=== PATIENT | male | born 1960 | race Caucasian/White ===

== ENCOUNTER → 2017-08-27 08:49 | Outpatient (CLI) | payer MEDICARE, SELFPAY ==
[2017-08-27 10:50] LABS: ALB/GLOB Ratio 0.8 RATIO (0.9-2.4); AST(SGOT) 18 U/L (15-37); Alanine Aminotransfer ALT/SGPT 27 U/L (16-61); Albumin, Serum 3.6 g/dL (3.2-5.0); Alkaline Phosphatase 124 U/L (45-117); Anion Gap 7 (5-15); BUN 17 mg/dL (7-18); BUN/Creat Ratio 14.5 RATIO (10-20); Calcium,Total 8.8 mg/dL (8.5-10.1); Chloride 100 mmol/L (98-107); Creatinine, Serum 1.17 mg/dL (0.70-1.30); EST Glomerular Filtration Rate 68 mL/min (>60); Est Glom Filt Rate - Afr Amer 82 mL/min (>60); Globulin 4.3 g/dL (2.2-4.2); Glucose 149 mg/dL (74-106); Hemoglobin A1c 8.4 % (4.2-6.3); PSA,Total - Annual Screen 0.34 ng/mL (0.00-4.00); Potassium 4.9 mmol/L (3.5-5.1); Protein, Total 7.9 g/dL (6.4-8.2); Sodium Level 137 mmol/L (136-145)
== END ==
PROVIDERS: Visit Provider Nurse Practitioner
DX: E10.9 Type 1 diabetes mellitus without complications (principal); I10 Essential (primary) hypertension; H81.09 Meniere's disease, unspecified ear; Z12.5 Encounter for screening for malignant neoplasm of prostate
CPT/HCPCS: 36415; 80053; 82043; 82570; 83036; 84153; G0103

== ENCOUNTER → 2017-08-29 10:11 | Outpatient (CLI) | payer MEDICARE, SELFPAY ==
[2017-08-29 11:42] LABS: Microalbumin:Creatinine Ratio 678.1 mg/g CRE (<30 mg/g CRE)
== END ==
PROVIDERS: Visit Provider Nurse Practitioner
DX: E10.9 Type 1 diabetes mellitus without complications (principal); I10 Essential (primary) hypertension
CPT/HCPCS: 82043; 82570

== ENCOUNTER 2018-01-30 14:14 | Emergency (ER) | payer MEDICARE, SELFPAY ==
[2018-01-30 14:16] VITALS: BP 187/77; PULSE 79; RESP 18; TEMP 36.3; O2SAT 100; BMI 28.4
--- NOTE | 2018-01-30 14:31 | CT_ITS ---
STUDY: CT ABDOMEN AND PELVIS WITH CONTRAST REASON FOR EXAM: Male, 57 years old. Left lower quadrant pain. RADIATION DOSAGE (If Supplied By Facility): CTDIvol = ( 14.16 ) mGy, DLP = ( 781.88 ) mGycm TECHNIQUE: Transaxial images were obtained from the dome of the diaphragm to the symphysis pubis without oral contrast. 100 ml of Isovue 300 contrast was administered. Sagittal and coronal images were reconstructed. Individualized dose optimization techniques were used for this CT. COMPARISON: May 26, 2014. FINDINGS: The visualized lung bases are unremarkable. There are coronary artery calcifications present. The visualized liver is within normal limits. Normal gallbladder and extrahepatic biliary system. Normal spleen. There is diffuse stable atrophy of the pancreas. No pancreatic ductal dilatation is seen. Normal bilateral adrenal glands. Normal right kidney. There is a left renal cyst. There is an additional too small to characterize low-attenuation focus within the left kidney consistent with an underlying cyst. Normal visualized stomach. Normal small intestine. Normal colon. The appendix is visualized and appears normal. There is diffuse atherosclerotic calcification of the abdominal aorta, without a demonstrated aneurysm. Normal inferior vena cava. Normal retroperitoneum. Normal urinary bladder. Stable abdominal wall. There is a small fat-containing umbilical hernia. There are diffuse degenerative changes of the visualized lumbar spine. CT/Abdomen/Pelvis W IV Cont ONLY IMPRESSION: No acute intra-abdominal process. Atherosclerosis. Left renal cyst. Degenerative changes. Electronically Signed: Vanessa Newsome MD at 15:54 EST Tel , Service support ,
[2018-01-30 14:49] LABS: Absolute Lymphocyte Count 1.65 X10^3/ul (0.83-4.51); Absolute Neutrophil Count 6.4 X10^3/uL (2.0-7.7); Basophil# 0.02 X10^3/uL; Basophil% 0.2 % (0-1); Eosinophil# 0.12 X10^3/uL; Eosinophils% 1.4 % (0-5); Hematocrit 38.3 % (40-54); Hemoglobin 12.8 g/dl (13.0-16.5); Lymphocyte # 1.65 X10^3/ul (4.0); Mean Corp Hgb Conc 33.4 g/gl (32-36); Mean Corpuscular Hgb 30.3 pg (27.0-32.0); Mean Corpuscular Volume 90.8 fL (80-94); Mean Platelet Vol. 8.8 fl (6.2-12.0); Monocyte# 0.52 X10^3/uL; Neutrophil # 6.38 X10^3/uL (2.7-7.7); Neutrophil % 73.3 % (47-70); POSITIVE COUNT NO; POSITIVE DIFFERENTIAL NO; POSITIVE MORPHOLOGY NO; Platelet Count 346 K/mm3 (150-450); RBC Distribution Width CV 13.3 % (11.6-14.6); RBC Distribution Width SD 43.6 fl (35.1-43.9); Red Blood Count 4.22 M/mm3 (4.6-6.2); White Blood Count 8.7 K/mm3 (4.4-11.0)
[2018-01-30 14:56] LABS: Bacteria 0 SEEN /hpf (None Seen); Mucous, Urine 0 SEEN /hpf (<or=2+); Squamous Epithelial Cells - UA 0 SEEN /hpf (0-5); White Blood Cells 0 SEEN /hpf (0-5)
[2018-01-30 15:00] LABS: Color, Urine Yellow (Yellow); Glucose, Dipstick 1000 mg/dl (Normal); Ketone-Dipstick Negative (Negative); Leukocyte Esterase-Dipstick Negative /ul (Negative); Nitrite-Dipstick Negative (Negative); Occult Blood-Urine 10 /ul (Negative); Protein-Dipstick 30 mg/dl (Negative); Specific Gravity, Urine 1.005 (1.002-1.030); Urine Bilirubin Dipstick Negative (Negative); Urine Clarity Clear (Clear); Urine Urobilinogen Normal (Normal); Urine pH 6.5 (5.0 - 8.0)
[2018-01-30 15:07] LABS: Red Blood Cells-Urine 0-5 SEEN /hpf (0-5)
[2018-01-30 15:10] LABS: ALB/GLOB Ratio 0.8 RATIO (0.9-2.4); AST(SGOT) 21 U/L (15-37); Alanine Aminotransfer ALT/SGPT 37 U/L (16-61); Albumin, Serum 3.1 g/dL (3.2-5.0); Alkaline Phosphatase 161 U/L (45-117); Anion Gap 5 (5-15); BUN 30 mg/dL (7-18); BUN/Creat Ratio 19.4 RATIO (10-20); Calcium,Total 8.3 mg/dL (8.5-10.1); Chloride 99 mmol/L (98-107); Creatinine, Serum 1.55 mg/dL (0.70-1.30); EST Glomerular Filtration Rate 49 mL/min (>60); Est Glom Filt Rate - Afr Amer 59 mL/min (>60); Estimated Creatinine Clearance 47.98 ml/min; Glucose 458 mg/dL (74-106); Lipase 69 U/L (73-393); Potassium 5.3 mmol/L (3.5-5.1); Protein, Total 7.1 g/dL (6.4-8.2); Sodium Level 133 mmol/L (136-145)
--- NOTE | 2018-01-30 15:17 | ED.RN ---
Critical glucose of 458 received, Dr Berry notified. No new orders at this time.
--- NOTE | 2018-01-30 15:44 | ED.VISSUMM ---
- ER Visit Summary Date of Service: 01/30/18 Chief Complaint: Abdominal pain History of Present Illness: The patient is a 57 M who states that intermittently since the summer he has had episodes where he feels twisting of his abdomen typically in the left lower side of his abdomen. He also notes tenderness in his epigastrium. And he has diarrhea. This particular episode began on Saturday today he has had 5 episodes of diarrhea. His last formed stool was yesterday. He denies any mucus or blood in the stool. He has been hunting. No history of colitis. He is never had colonoscopy.. He denies any recent antibiotics. He denies any bad food. Physical Examination: Afebrile vital signs are stable Gen: Well-nourished well-developed Head: Normocephalic atraumatic Eyes: Perrl EOMI ENT: TMs clear no rhinorrhea moist mucous membranes Neck: Supple no lymphadenopathy no JVD nontender CVS: Regular rate rhythm no murmurs normal S1-S2 Respiratory: No distress clear to auscultation bilaterally chest nontender Abdomen: Soft mildly tender without distention r nondistended normal bowel sounds no masses Back: Nontender Extremity: Nontender no edema Skin: Normal color no rash Neuro: alert orientated ?3 CN II-XII intact normal strength sensation reflexes gait cerebellar Psych: Normal affect normal mood Test Results: Labs showed blood sugars in the 400s. CT of the pelvis was negative for acute pathology. Emergency Department Course and Treatment: Received IV fluids. His blood sugar significantly elevated which she states he knew. He states he does have the ability to do due to tight glycemic control and will check his blood sugar every couple hours to get that down and and he is advised that his medicines will raise his blood sugars. We discharged home on prednisone and Bentyl. He is to follow-up with gastroenterology. Referral given. Impression: IBS This note was generated with [employer] dictation software. It may contain incorrect words, spelling, and punctuation that were not noted in review of the chart prior to signing ED Disposition - Plan for ED Patient: Disposition: Home or Assisted Living Chief Complaint: Abd Pain Instructions: ED IBS Prescriptions: Dicyclomine HCl [Bentyl] 20 mg PO TIDAC #40 capsule Prednisone [Deltasone] 40 mg PO DAILY #10 tablet Referrals: Aaron Cook MD [NON-STAFF] - (call to arrange follow up)
[2018-01-30 15:57] VITALS: BP 139/79; PULSE 84; RESP 16; O2SAT 97
[2018-01-30] MEDS: 0.9% Normal Saline 1,000 ML 999 ML IV (15:57)
[2018-01-30 16:40] VITALS: BP 108/77; PULSE 62; RESP 15; O2SAT 97
--- OUTSIDE RECORDS SUMMARY | 2018-03-27 20:23 | XMS RPT_ITS ---
:1960 Author Organization OHIP Care Team Providers Name Role Phone Margaret Wood LYMPHEDEMA THERAPIST-C Attending Unavailable Margaret Wood LYMPHEDEMA THERAPIST-C Referring Unavailable Primay Care Physicia, No Primary Care Unavailable Margaret Wood LYMPHEDEMA THERAPIST-C Attending Unavailable Zurdo Carey Referring Unavailable Primay Care Physicia, No Primary Care Unavailable Margaret Wood LYMPHEDEMA THERAPIST-C Attending Unavailable Margaret Wood LYMPHEDEMA THERAPIST-C Referring Unavailable Primay Care Physicia, No Primary Care Unavailable Margaret Wood LYMPHEDEMA THERAPIST-C Attending Unavailable Primay Care Physicia, No Referring Unavailable Primay Care Physicia, No Primary Care Unavailable Brandon Berry Attending Unavailable PROBLEMS PROBLEMS DATE TYPE CONDITION / CODE ATTENDING STATUS SOURCE 12/05/2017 Unknown E10.9 - Type 1 Margaret Wood diabetes mellitus LYMPHEDEMA THERAPIST-C [facility] complications / Repository E10.9(ICD-10) 12/05/2017 Unknown E11.9 - Type 2 Margaret Wood Active Dileep diabetes mellitus LYMPHEDEMA THERAPIST-C [facility] complications / Repository E11.9(ICD-10) 08/29/2017 Unknown I10 - Essential Margaret Wood Active [place] (primary) LYMPHEDEMA THERAPIST-C [facility] hypertension / Hospital I10(ICD-10) Repository PROCEDURES PROCEDURES No Procedure Records FoundRESULTS RESULTS EMERGENCY DEPARTMENT Observed: 01/30/2018 Status: F Source: DILEEP SUMMARY 5:45 PM [facility] HOSPITAL REPOSITORY [facility] Medical Records Department [address] [place] [address] Emergency Department Summary 01/30/18 1544 MR#: [id number] Acct: [id number] Name: BERE MENDOZA Rep #: [id number] : 1960 57 From: Brandon Berry DO PCP: Care Physician, No Primary Status: DEP ER - ER Visit Summary Date of Service: 01/30/18 Chief Complaint: Abdominal pain History of Present Illness: The patient is a 57 M who states that intermittently since the summer he has had episodes where he feels twisting of his abdomen typically in the left lower side of his abdomen. He also notes tenderness in his epigastrium. And he has diarrhea. This particular episode began on Saturday today he has had 5 episodes of diarrhea. His last formed stool was yesterday. He denies any mucus or blood in the stool. He has been hunting. No history of colitis. He is never had colonoscopy.. He denies any recent antibiotics. He denies any bad food. Physical Examination: Afebrile vital signs are stable Gen: Well-nourished well-developed Head: Normocephalic atraumatic Eyes: Perrl EOMI ENT: TMs clear no rhinorrhea moist mucous membranes Neck: Supple no lymphadenopathy no JVD nontender CVS: Regular rate rhythm no murmurs normal S1-S2 Respiratory: No distress clear to auscultation bilaterally chest nontender Abdomen: Soft mildly tender without distention r nondistended normal bowel sounds no masses Back: Nontender Extremity: Nontender no edema Skin: Normal color no rash Neuro: alert orientated 3 CN II-XII intact normal strength sensation reflexes gait cerebellar Psych: Normal affect normal mood Test Results: Labs showed blood sugars in the 400s. CT of the pelvis was negative for acute pathology. Emergency Department Course and Treatment: Received IV fluids. His blood sugar significantly elevated which she states he knew. He states he does have the ability to do due to tight glycemic control and will check his blood sugar every couple hours to get that down and and he is advised that his medicines will raise his blood sugars. We discharged home on prednisone and Bentyl. He is to follow-up with gastroenterology. Referral given. Impression: IBS This note was generated with QuarterSpot dictation software. It may contain incorrect words, spelling, and punctuation that were not noted in review of the chart prior to signing ED Disposition - Plan for ED Patient: Disposition: Home or Assisted Living Chief Complaint: Abd Pain Instructions: ED IBS Prescriptions: Dicyclomine HCl [Bentyl] 20 mg PO TIDAC #40 capsule Prednisone [Deltasone] 40 mg PO DAILY #10 tablet Referrals: Aaron Cook MD [NON-STAFF] - (call to arrange follow up) What to do if you have Problems For any increased pain, shortness of breath, bleeding, nausea or vomiting, chest pain, or any unexpected problems, contact your Primary Care Provider. Call [facility] ([phone]) or report to the closest Emergency Room. Call 911 if necessary. 01/30/18 2328 <Electronically signed by Brandon Berry DO> Date Brandon Berry DO Cosigner Signature (If Indicated): Date CC: No Primary Care Physician URINALYSIS, COMPLETE Collected: 01/30/2018 Status: F Source: DILEEP 2:50 PM [facility] REPOSITORY Order Comment: How was Urine Obtained? CLEAN CATCH TYPE CODE TESTS RESULT OUT OF RANGE REFERENCE UNITS LAB L400.3000 Yellow COLOR Normal Yellow LAB L400.3050 Clear Normal CLARITY Clear LAB L400.3200 Normal mg/dl High GLUCOSE, UR 1000 LAB L400.3300 Negative mg/dL Normal BILIRUBIN URINE Negative LAB L400.3400 Negative mg/dl Normal KETONE UR Negative LAB L400.3465 1.002-1.030 Normal SP.GR. DIPSTX 1.005 LAB L400.3550 5.0 - 8.0 pH UR Normal 6.5 LAB L400.3600 Negative mg/dl High PROT 30 DIPSTX LAB L400.3700 Normal mg/dl Normal UROBILI Normal LAB L400.3750 Negative Normal NITRITE UR Negative LAB L400.3780 Negative /ul High 10 OCCULT BLOOD-UR LAB L400.3800 Negative /ul LEUK Normal ESTERASE Negative LAB L400.4050 0-5 /hpf WBC 0 Normal SEEN LAB L400.4100 0-5 /hpf Normal RBC-UA 0-5 SEEN LAB L400.4150 0-5 /hpf SQUAM 0 Normal EPI SEEN LAB L400.4300 None Seen /hpf 0 Normal BACTERIA SEEN LAB L400.4350 <or=2+ /hpf 0 Normal MUCUS, URINE SEEN Performed By: #### L400.0001 #### [facility] [address] [place], [address] CBC W/DIFF, AUTOMATED Collected: 01/30/2018 Status: F Source: [place] 2:40 PM [facility] REPOSITORY TYPE CODE TESTS RESULT OUT OF RANGE REFERENCE UNITS LAB L100.1000 4.4-11.0 K/mm3 Normal WBC 8.7 LAB L100.1200 4.6-6.2 M/mm3 Low RBC 4.22 LAB L100.1300 13.0-16.5 g/dl Low HGB 12.8 LAB L100.1400 40-54 % Low HCT 38.3 LAB L100.1500 80-94 fL Normal MCV 90.8 LAB L100.1600 27.0-32.0 pg Normal MCH 30.3 LAB L100.1700 32-36 g/gl Normal MCHC 33.4 LAB L100.1810 11.6-14.6 % Normal RDW CV 13.3 LAB L100.1820 35.1-43.9 fl Normal RDW SD 43.6 LAB L100.1900 150-450 K/mm3 Normal PLT 346 LAB L100.2000 6.2-12.0 fl Normal MPV 8.8 LAB L100.2100 47-70 % High NEUT% 73.3 LAB L100.2200 19-41 % Normal LY% 19.0 LAB L100.2300 0-10 % Normal MONO% 6.0 LAB L100.2400 0-5 % Normal EO% 1.4 LAB L100.2500 0-1 % Normal BASO% 0.2 LAB L100.2550 0.0-0.9 % Normal IM GRAN % 0.100 Result Comment: IG% - Immature Granulocytes (promyelocytes, myelocytes and metamyelocytes) > 1% indicates that a LEFT SHIFT is Present. LAB L100.2620 2.0-7.7 X10 3/uL Normal Absolute Neut 6.4 LAB L100.2720 0.83-4.51 X10 3/ul Normal Absolute Lymph 1.65 Performed By: #### L100.0100 #### [facility] [address] [place], [address] COMPREHENSIVE METABOLIC Collected: 01/30/2018 Status: F Source: [facility] 2:40 PM [facility] REPOSITORY TYPE CODE TESTS RESULT OUT OF RANGE REFERENCE UNITS LAB L501.0100 74-106 mg/dL High alert GLU 458 Result Comment: Critical Result(s) Called at: 15:11:32 01/30/2018 by: Marybel Bull to MMartin Glucose result greater than or equal to 200 mg/dL suggests DIABETES MELLITUS per A.D.A. criteria. Please note revised GLUCOSE reference range effective 2017. LAB L501.1000 7-18 mg/dL High BUN 30 LAB L501.1100 0.70-1.30 mg/dL High CREAT,SERUM 1.55 Result Comment: The validity of the calculated GFR AND GFRAA in patients over 70 years has not been determined. Clinical correlation is essential. LAB L501.1110 >60 mL/min Low EST GFR 49 Result Comment: Non- GFR Calc LAB L501.1115 >60 mL/min Low EST GFR - AA 59 Result Comment: GFR Calc LAB L501.1255 ml/min Normal Estimated CRCL 47.98 LAB L501.1300 10-20 RATIO Normal BUN/CRE 19.4 LAB L501.1500 6.4-8. g/dL Normal 2 T PROT 7.1 LAB L501.1800 3.2-5. g/dL Low 0 ALB 3.1 LAB L501.1950 2.2-4. g/dL Normal 2 GLOB 4.0 LAB L501.2000 0.9-2. RATIO Low 4 A/G 0.8 LAB L501.2200 8.5-10 mg/dL Low .1 CA 8.3 LAB L501.4100 15-37 U/L Normal AST 21 LAB L501.4305 45-117 U/L High ALK P 161 LAB L501.4405 16-61 U/L Normal ALT 37 LAB L501.4600 0.20-1 mg/dL Normal .00 T BILI 0.30 LAB L501.5300 136-14 mmol/L Low 5 NA 133 LAB L501.5600 3.5-5. mmol/L High 1 K 5.3 LAB L501.5900 98-107 mmol/L Normal CL 99 LAB L501.6100 21.0-3 mmol/L Normal 2.0 CO2 29.0 LAB L501.6200 5-15 Normal GAP 5 Performed By: #### L500.4050, L501.2450 #### [facility] [address] [place], [address] LIPASE Collected: 01/30/2018 Status: F Source: [place] 2:40 PM [facility] REPOSITORY TYPE CODE TESTS RESULT OUT OF REFERENCE UNITS RANGE LAB L501.2450 73-393 U/L Low LIPASE 69 Performed By: #### L500.4050, L501.2450 #### [facility] [address] [place], [address] ABDOMEN/PELVIS W IV CONT Observed: 01/30/2018 Status: F Source: [place] ONLY 2:32 PM [facility] REPOSITORY [facility] Imaging Services [address] [place] [id number] Abdomen/Pelvis W IV Cont ONLY MR#: [id number] Acct: [id number] Name: BERE MENDOZA Rep #: [id number] : 1960 M 57 From: Vanessa Newsome MD PCP: Care Physician, No Primary Status: REG ER Study: Abdomen/Pelvis W IV Cont ONLY Date of Exam: 01/30/18 Exam# [id number] Ordering Dr: Brandon Berry DO STUDY: CT ABDOMEN AND PELVIS WITH CONTRAST REASON FOR EXAM: Male, 57 years old. Left lower quadrant pain. RADIATION DOSAGE (If Supplied By Facility): CTDIvol = ( 14.16 ) mGy, DLP = ( 781.88 ) mGycm TECHNIQUE: Transaxial images were obtained from the dome of the diaphragm to the symphysis pubis without oral contrast. 100 ml of Isovue 300 contrast was administered. Sagittal and coronal images were reconstructed. Individualized dose optimization techniques were used for this CT. COMPARISON: May 26, 2014. FINDINGS: The visualized lung bases are unremarkable. There are coronary artery calcifications present. The visualized liver is within normal limits. Normal gallbladder and extrahepatic biliary system. Normal spleen. There is diffuse stable atrophy of the pancreas. No pancreatic ductal dilatation is seen. Normal bilateral adrenal glands. Normal right kidney. There is a left renal cyst. There is an additional too small to characterize low-attenuation focus within the left kidney consistent with an underlying cyst. Normal visualized stomach. Normal small intestine. Normal colon. The appendix is visualized and appears normal. There is diffuse atherosclerotic calcification of the abdominal aorta, without a demonstrated aneurysm. Normal inferior vena cava. Normal retroperitoneum. Normal urinary bladder. Stable abdominal wall. There is a small fat-containing umbilical hernia. There are diffuse degenerative changes of the visualized lumbar spine. CT/Abdomen/Pelvis W IV Cont ONLY IMPRESSION: No acute intra-abdominal process. Atherosclerosis. Left renal cyst. Degenerative changes. Electronically Signed: Vanessa Newsome MD at 15:54 EST Tel , Service support , CC: No Primary Care Physician; Brandon eBrry DO Sugar Boiler: Signed ENDOCRINOLOGY VISIT Observed: 12/05/2017 Status: F Source: DILEEP REPORT 11:28 AM [facility] REPOSITORY [facility] [address] [place] [address] OFFICE VISIT Date of Service: 12/05/17 MR#: [id number] Acct: [id number] Name: BERE MENDOZA Rep #: [id number] : 1960 Provider: Margaret Wood NP Age/Sex: 56/M Location: [facility] [place] Status: Signed HPI History of present illness History of present illness Bere Mendoza is a 56 yr old male who presents today for follow up of diabetes type 1. Diagnosed at age 12. Over the last few years he has had issues with meniere's disease left ear and has had surgeries to relieve his dizziness. Today he reports much of his hearing is gone from his left ear but he is feeling so much better regarding his quality of life. Also has hx of dermatitis , hyperlipidemia, and hypothyroidism. Currently taking lantus 33 units daily and meal insulin humalog 12-16 units each meal. Did not bring his meter today. Denies any issues with injections or site of injections. Did have steroid due to scratch of eye that was inflamed. Created elevation in BG readings which was expected. Since our last visit he denies excessive thirst or increased frequency of urination, chest pain or dyspnea, numbness,tingling, or pain in extremities, new or unusual visual symptoms. Has had occ low blood sugars. Follows a diabetic diet. Is compliant with medication and is tolerating without side effects. Diet 3 meals occ snacks Can carb count SMBG 4 BG Average BG 180 range. Exam Const General: comfortable, well developed Nutritional Appearance: well nourished, overweight [facility]: normal to inspection, normocephalic Ears: hearing grossly normal bilaterally Mouth: oral mucosae normal, moist mucous membranes Teeth and gingiva: edentulous Eyes General: appearance normal, both eyes and all related structures Eyelids: eyelids normal Sclera: sclerae normal Pupils: PERRL Neck Neck: normal visual inspection, full ROM Neck mass: No Resp Effort AND Inspection: normal respiratory effort, able to speak in complete sentences, symmetric chest movement Auscultation: Bilateral: Clear to Auscultation Cardio Rate: regular rate Rhythm: regular rhythm Heart Sounds: S1 normal, S2 normal GI Inspection: normal to inspection Auscultation: normal bowel sounds Palpation: soft, no guarding Skin General: no rashes or lesions noted Wounds: no wounds Diabetic Foot Pulses: L dorsalis pedis pulse: normal, R dorsalis pedis pulse: normal Monofilament test: Left foot: abnormal, Right foot: abnormal Neuro General: oriented x3 Cognition: normal cognition Speech: speech normal Gait: normal gait Extrem General: normal to inspection, no pedal edema Psych Mental Status: mental status grossly normal Mood: congruent mood Affect: normal affect Speech and Movement: speech and movement normal Attitude: cooperative Thought Process: normal Thought Content: normal Judgment: judgment good Type: type 1, insulin-requiring Glucose control symptoms: Reports high post-meal glucose Weight and fatigue symptoms: Reports weight loss; denies snoring Cardiopulmonary symptoms: Reports lightheadedness; denies chest pain at rest, dyspnea on exertion or myalgias GI symptoms: Denies constipation, diarrhea, nausea/dyspepsia or vomiting Skin and extremity symptoms: Denies erectile dysfunction Other symptoms: Reports change in vision; denies blurry vision Pertinent visit history: Denies recent visit to ER, recent hospital admission or recent glucagon injection Self monitoring: Yes Percentage of fasting blood glucose within goal: <25% of the time Dietary compliance: Diabetes: good Diabetes education in past year: Yes Glucose testing: demonstrates correct use of meter, understands testing schedule day education - understands ketone testing: Yes Physical activity: regular Intake Vital Signs12/05/17 Height 5 ft 7 in 12/05/17 Weight: 180 lb 2 oz 12/05/17 Body Mass Index (BMI) 28.2 12/05/17 Blood Pressure 138/70 H 12/05/17 Blood Pressure Location Rt popliteal 12/05/17 Blood Pressure Position Sitting Intake Visit Reasons: Diabetes follow-up Systems Integration Advisor Required: No Accompanied by: Self Allergies latex Allergy (Unknown, Verified 12/05/17 08:28) Unknown adhesive Allergy (Verified 12/05/17 08:28) Rash Medications levothyroxine 137 mcg capsule 137 mcg PO QDAY #90 cap 06/13/17 [Rx Confirmed 12/05/17] metoprolol tartrate 100 mg tablet 100 mg PO ONCE #90 tab 06/13/17 [Rx Confirmed 12/05/17] insulin glargine (U- 100) 100 unit/mL subcutaneous solution 33 unit SC QDAY #30 ml 06/27/17 [Rx Confirmed 12/05/17] aspirin 81 mg chewable tablet 81 mg PO QDAY 08/29/17 [History Confirmed 12/05/17] insulin lispro (U- 100) 100 unit/mL subcutaneous pen See Rx Instructions SC TID ml 08/29/17 [History Confirmed 12/05/17] promethazine 25 mg rectal suppository 25 mg RC Q6H PRN 08/29/17 [History Confirmed 12/05/17] losartan 100 mg tablet 100 mg PO QDAY #90 tab 12/03/17 [Rx Confirmed 12/05/17] Nurse's Note: blood sugars : low : 134 high : 500+ PFSH Medical History High calcium levels (Acute) High cholesterol (Acute) Type 1 diabetes mellitus (Acute) HTN (hypertension) (Chronic) Social History Smoking Status: Former smoker second hand exposure: No alcohol intake: never substance use type: does not use ROS Const Constitutional: No anorexia, body ache, chills, fatigue, fever(s), frequent falls, decreased energy, malaise, night sweats, weakness, weight change, sleep problems, abnormal sleep pattern, change in appetite, other, headache(s), snoring or excessive sweating Eyes Eyes: Positive for change in vision, eye pain and other (laceration to R eye- contact placed x 2 weeks); no blurry vision, double vision, discharge, dry eyes, bulging eyes, floaters, visual disturbances, light sensitivity, spots in vision or tunnel vision ENT ENT: Positive for nasal congestion and nasal discharge; no abnormal hearing, ear pain, ear discharge, ear pressure, hearing loss, tinnitus, dizziness/vertigo, balance problems, nosebleed/epistaxis, nasal obstruction, nose pain, sinus pressure, sinus pain, post nasal drip, headache(s), facial pain, dental pain, dry mouth, bad breath, hoarseness, lip swelling, mouth lesions, mouth pain, sore throat, tongue swelling, throat swelling, other, difficulty swallowing or neck pain Resp Respiratory: No cough, change in phlegm color, chest congestion, excessive phlegm production, hemoptysis, pain on inspiration, shortness of breath, pain with cough, snoring, stridor, wheezing or other Cardio Cardiology: Positive for lightheadedness; no chest pain at rest, chest pain with exertion, leg pain with exertion, excessive sweating, shortness of breath, dyspnea on exertion, generalized swelling, irregular heart rhythm, orthopnea, radiating jaw, neck or arm pain, fast heart rate, slow heart rate, palpitations or other Gastro GI: No abdominal pain, belching, bloating, change in bowel habits, change in stool character, coffee ground emesis, constipation, cramping, diarrhea, heartburn, difficulty swallowing, feeling full early, excessive flatus, incontinent of stools, Vomiting blood/hematemesis, blood in stool, loose stools, Black,tarry stools, nausea/dyspepsia, pain with swallowing, vomiting or other Genitourinary Male: Positive for urinary frequency and urinary hesitancy; no difficulty urinating, burning urination, painful urination, urinary incontinence, urinary urgency, urinary retention, blood in urine, Frequent nighttime urination/ nocturia, post void dribbling, suprapubic fullness, side pain, sexual problems, genital lesions, genital itching, erectile dysfunction, penile discharge, difficulty with ejaculations, blood in semen, scrotal swelling, testicle lump, testicle pain or other Musc Musculoskeletal: No abnormal walking, joint pain, back pain, deformity, joint swelling, limited range of motion, loss of height, muscle cramps, muscle weakness, decreased muscle mass, body aches, neck pain, numbness, radiating pain into limb, stiffness, tingling or other Skin Skin: No acne, hair loss, change in hair, nail changes, boil, change in skin color, dry skin, redness, excessive hair growth, yellowing of the skin, lesions, itching, rash, skin pain, skin ulcer, sores, skin swelling, wounds or other Breast Breast: No other Neuro Neurology: No frequent falls, weakness, visual disturbances, abnormal hearing, headache(s), abnormal walking, numbness or tingling Psych Psychiatric: No abnormal sleep pattern, No change in appetite Endo Endocrine: No fatigue, other or excessive sweating Aller/Imm Allergy/Immunologic: No lip swelling, tongue swelling, throat swelling, wheezing or itchy eyes Assessment AND Plan 1. Type 1 diabetes mellitus with complication E10.8 Plan Needs new PCP. Will assist with this. BP in fairly good control today. Vertigo improved. Taking fish oil more consistently for chol. Also getting ready to start flaxseed oil capsules. BG readings did have few weeks of being elevated around 200+ with steroid. Now have resumed around 180 average. Patient interested in ernesto sensor which would be beneficial in obtaining more data, caron postprandial data and may help with insulin adjustments. Labs tomorrow. Completion of patient assistant case manager forms today for insulin. Renal function normal. Microalbumin elevated. Needs rechecked. Control portions Food selections should be healthy Choose more low carb vegetables Avoid snacks and desserts. Drink water Exercise daily Eat more fresh foods, not canned or processed Eat more slowly Carb count meals and work toward improved efficency. Plan Detail Other Orders Orders: Additional Comments 1. Please schedule follow up in 3 months. 2. Lab work one week before appointment. 3. Discussed importance of regular exercise and recommend starting or continuing a regular exercise program for good health. 4. The patient was encouraged to lose weight for good health 5. The importance of monitoring blood sugar regularly was reviewed. 6. The importance of monitoring the HBA1c level regularly was reviewed. 7. The importance of prper foot care and regularly checking feet to prevent sores and loss of limbs was reviewed. 8. The importance of keeping BP at or below 130/80 to prevent stroke, heart attacks, kidney failure, blindness was reviewed. Spent approximately 30 minutes with patient with over 50% of time spent in discussion and counseling regarding medication adjustment, symptoms and treatment of hypoglycemia, diet adherence, and checking BG before driving. Coding Level of Care Code Off vis,est,level 4 Diagnoses Type 1 diabetes mellitus with complication E10.8 Diabetes mellitus complication status: with unspecified complications 12/05/17 1128 <Electronically signed by Margaret DUNN> Date Margaret DUNN Cosigner Signature: Date (if applicable) CC: ENDOCRINOLOGY VISIT Observed: 09/14/2017 Status: F Source: DILEEP REPORT 11:14 AM [facility] REPOSITORY [facility] [address] [place] [address] OFFICE VISIT Date of Service: 08/29/17 MR#: [id number] Acct: [id number] Name: BERE MENDOZA Rep #: [id number] : 1960 Provider: Margaret Wood NP Age/Sex: 56/M [place] [facility] [place]: Signed HPI History of present illness Bere Mendoza is a 56 yr old male who presents today for follow up of diabetes type 1. Diagnosed at age 12. Over the last few years he has had issues with meniere's disease left ear and has had surgeries to relieve his dizziness. Today he reports much of his hearing is gone from his left ear but he is feeling so much better regarding his quality of life. Also has hx of dermatitis , hyperlipidemia, and hypothyroidism. Currently taking lantus 33 units daily and meal insulin humalog 12-16 units each meal. Did not bring his meter today. Denies any issues with injections or site of injections. Since our last visit he denies excessive thirst or increased frequency of urination, chest pain or dyspnea, numbness,tingling, or pain in extremities, new or unusual visual symptoms. Has had occ low blood sugars. Follows a diabetic diet. Is compliant with medication and is tolerating without side effects. Exam Const General: comfortable, well developed Nutritional Appearance: well nourished, overweight Orientation: oriented x3 [facility] Head: normal to inspection, normocephalic Ears: hearing grossly normal bilaterally Mouth: oral mucosae normal, moist mucous membranes Teeth and gingiva: edentulous Eyes General: appearance normal, both eyes and all related structures Eyelids: eyelids normal Sclera: sclerae normal Pupils: PERRL Neck Neck: normal visual inspection, full ROM Neck mass: No Resp Effort AND Inspection: normal respiratory effort, able to speak in complete sentences, symmetric chest movement Auscultation: Bilateral: Clear to Auscultation Cardio Rate: regular rate Rhythm: regular rhythm Heart Sounds: S1 normal, S2 normal GI Inspection: normal to inspection Auscultation: normal bowel sounds Palpation: soft, no guarding Skin General: no rashes or lesions noted Wounds: no wounds Diabetic Foot Pulses: L dorsalis pedis pulse: normal, R dorsalis pedis pulse: normal Monofilament test: Left foot: abnormal, Right foot: abnormal Neuro General: oriented x3 Cognition: normal cognition Speech: speech normal Gait: normal gait Extrem General: normal to inspection, no pedal edema Psych Mental Status: mental status grossly normal Mood: congruent mood Affect: normal affect Speech and Movement: speech and movement normal Attitude: cooperative Thought Process: normal Thought Content: normal Judgment: judgment good Weight and fatigue symptoms: Denies snoring Cardiopulmonary symptoms: Reports lightheadedness; denies chest pain at rest, dyspnea on exertion or myalgias GI symptoms: Denies constipation, diarrhea, nausea/dyspepsia or vomiting Skin and extremity symptoms: Denies erectile dysfunction Other symptoms: Denies blurry vision or change in vision Intake Vital Signs08/29/17 Height 5 ft 7 in 08/29/17 Weight: 182 lb 08/29/17 Body Mass Index (BMI) 28.5 08/29/17 Blood Pressure 154/80 08/29/17 Blood Pressure Location Lt popliteal 08/29/17 Blood Pressure Position Sitting Intake Visit Reasons: follow up Systems Integration Advisor Required: No Accompanied by: Self Is patient in pain?: No Allergies latex Allergy (Unknown, Verified 08/29/17 08:58) Unknown adhesive Allergy (Verified 08/29/17 08:58) Rash Medications levothyroxine 137 mcg capsule 137 mcg PO QDAY #90 cap 06/13/17 [Rx Confirmed 08/28/17] metoprolol tartrate 100 mg tablet 100 mg PO ONCE #90 tab 06/13/17 [Rx Confirmed 08/28/17] insulin glargine (U-100) 100 unit/mL subcutaneous solution 33 unit SC QDAY #30 ml 06/27/17 [Rx Confirmed 08/28/17] aspirin 81 mg chewable tablet 81 mg PO QDAY 08/29/17 [History Confirmed 08/29/17] insulin lispro (U-100) 100 unit/mL subcutaneous pen See Label Instructions SC TID ml 08/29/17 [History Confirmed 08/29/17] losartan 100 mg tablet 100 mg PO QDAY 08/29/17 [History Confirmed 08/29/17] promethazine 25 mg rectal suppository 25 mg RC Q6H PRN 08/29/17 [History Confirmed 08/29/17] Nurse's Note: blood sugars : low : 60 high : 200 PFSH Medical History High calcium levels (Acute) High cholesterol (Acute) Type 1 diabetes mellitus (Acute) HTN (hypertension) (Chronic) Social History Smoking Status: Former smoker second hand exposure: No alcohol intake: never substance use type: does not use ROS Const Constitutional: No anorexia, body ache, chills, fatigue, fever(s), frequent falls, decreased energy, malaise, night sweats, weakness, weight change, sleep problems, abnormal sleep pattern, change in appetite, other, headache(s), snoring or excessive sweating Eyes Eyes: Positive for other (recent eye exam); no blurry vision, change in vision, double vision, discharge, dry eyes, bulging eyes, floaters, visual disturbances, eye pain, light sensitivity, spots in vision or tunnel vision ENT ENT: Positive for dizziness/vertigo; no abnormal hearing, ear pain, ear discharge, ear pressure, hearing loss, tinnitus, balance problems, nosebleed/epistaxis, nasal congestion, nasal obstruction, nose pain, sinus pressure, sinus pain, nasal discharge, post nasal drip, headache(s), facial pain, dental pain, dry mouth, bad breath, hoarseness, lip swelling, mouth lesions, mouth pain, sore throat, tongue swelling, throat swelling, other, difficulty swallowing or neck pain Resp Respiratory: No cough, change in phlegm color, chest congestion, excessive phlegm production, hemoptysis, pain on inspiration, shortness of breath, pain with cough, snoring, stridor, wheezing or other Cardio Cardiology: Positive for lightheadedness; no chest pain at rest, chest pain with exertion, leg pain with exertion, excessive sweating, shortness of breath, dyspnea on exertion, generalized swelling, irregular heart rhythm, orthopnea, radiating jaw, neck or arm pain, fast heart rate, slow heart rate, palpitations or other Gastro GI: No abdominal pain, belching, bloating, change in bowel habits, change in stool character, coffee ground emesis, constipation, cramping, diarrhea, heartburn, difficulty swallowing, feeling full early, excessive flatus, incontinent of stools, Vomiting blood/hematemesis, blood in stool, loose stools, Black,tarry stools, nausea/dyspepsia, pain with swallowing, vomiting or other Genitourinary Male: No difficulty urinating, burning urination, painful urination, urinary incontinence, urinary frequency, urinary urgency, urinary hesitancy, urinary retention, blood in urine, Frequent nighttime urination/ nocturia, post void dribbling, suprapubic fullness, side pain, sexual problems, genital lesions, genital itching, erectile dysfunction, penile discharge, difficulty with ejaculations, blood in semen, scrotal swelling, testicle lump, testicle pain or other Musc Musculoskeletal: Positive for joint pain; no abnormal walking, back pain, deformity, joint swelling, limited range of motion, loss of height, muscle cramps, muscle weakness, decreased muscle mass, body aches, neck pain, numbness, radiating pain into limb, stiffness, tingling or other Skin Skin: No acne, hair loss, change in hair, nail changes, boil, change in skin color, dry skin, redness, excessive hair growth, yellowing of the skin, lesions, itching, rash, skin pain, skin ulcer, sores, skin swelling, wounds or other Breast Breast: No other Neuro Neurology: No frequent falls, weakness, visual disturbances, abnormal hearing, headache(s), abnormal walking, numbness or tingling Psych Psychiatric: No abnormal sleep pattern, No change in appetite Endo Endocrine: No fatigue, other or excessive sweating Aller/Imm Allergy/Immunologic: No lip swelling, tongue swelling, throat swelling, wheezing or itchy eyes Assessment AND Plan Problems 1. Type 1 diabetes mellitus with complication E10.8 2. Hypertension, essential I10 Plan [place] today NEw patient appt with Dr. Avendano. Bring meter to appt. RTC every 3 months Orders Orders: Plan Detail Additional Comments 1. Please schedule follow up in 3 months. 2. Lab work one week before appointment. 3. Discussed importance of regular exercise and recommend starting or continuing a regular exercise program for good health. 4. The patient was encouraged to lose weight for good health 5. The importance of monitoring blood sugar regularly was reviewed. 6. The importance of monitoring the HBA1c level regularly was reviewed. 7. The importance of prper foot care and regularly checking feet to prevent sores and loss of limbs was reviewed. 8. The importance of keeping BP at or below 130/80 to prevent stroke, heart attacks, kidney failure, blindness was reviewed. Spent approximately 30 minutes with patient with over 50% of time spent in discussion and counseling regarding medication adjustment, symptoms and treatment of hypoglycemia, diet adherence, and checking BG before driving. Coding Level of Care Code Off vis,est,level 3 Diagnoses Type 1 diabetes mellitus with complication E10.8 Diabetes mellitus complication status: with unspecified complications Hypertension, essential I10 Time Spent (min) 30 09/14/17 1114 <Electronically signed by Margaret DUNN> Date Margaret DUNN Cosigner Signature: Date (if applicable) CC: MICROALB:CREAT Collected: 08/29/2017 Status: F Source: DILEEP RATIO,RANDOM UR 10:14 AM [facility] REPOSITORY TYPE CODE TESTS RESULT OUT OF RANGE REFERENCE UNITS LAB L501.1200 NO RANGE EST. mg/dL Normal UR CREAT 35.10 LAB L502.0500 NO RANGE EST. mg/L Normal 238.0 MICROALBUMIN ,UR LAB L502.0600 <30 mg/g CRE mg/g CRE High 678.1 MALB:CREAT Performed By: #### L502.0250 #### [facility] [address] [place], [address] CREATININE, URINE Collected: 08/27/2017 Status: F Source: DILEEP (RANDOM) 8:56 AM [facility] REPOSITORY TYPE CODE TESTS RESULT OUT OF RANGE REFERENCE UNITS LAB L501.1200 NO RANGE EST. mg/dL Normal UR CREAT 36.70 Performed By: #### L501.1200, L502.0500, L501.9985 #### [facility] [address] [place], [address] MICROALBUMIN,RANDOM URINE Collected: Status: F Source: DILEEP 08/27/2017 8:56 AM [facility] REPOSITORY TYPE CODE TESTS RESULT OUT OF RANGE REFERENCE UNITS LAB L502.0500 NO RANGE EST. mg/L Normal 331.0 MICROALBUMIN ,UR Performed By: #### L501.1200, L502.0500, L501.9985 #### [facility] [address] [place], [address] HEMOGLOBIN A1C Collected: 08/27/2017 Status: F Source: DILEEP 8:56 AM [facility] REPOSITORY TYPE CODE TESTS RESULT OUT OF RANGE REFERENCE UNITS LAB L501.9985 4.2-6.3 % High HGB A1C 8.4 Performed By: #### L501.1200, L502.0500, L501.9985 #### [facility] [place], [address] COMPREHENSIVE METABOLIC Collected: 08/27/2017 Status: F Source: DILEEP [facility] 8:56 AM [facility] REPOSITORY TYPE CODE TESTS RESULT OUT OF RANGE REFERENCE UNITS LAB L501.0100 74-106 mg/dL High GLU 149 Result Comment: Fasting Glucose result greater than or equal to 126 mg/dL suggests DIABETES MELLITUS per A.D.A. criteria. Please note revised GLUCOSE reference range effective 2017. LAB L501.1000 7-18 mg/dL Normal BUN 17 LAB L501.1100 0.70-1.30 mg/dL Normal CREAT,SERUM 1.17 Result Comment: The validity of the calculated GFR AND GFRAA in patients over 70 years has not been determined. Clinical correlation is essential. LAB L501.1110 >60 mL/min Normal EST GFR 68 Result Comment: Non- GFR Calc LAB L501.1115 >60 mL/min Normal EST GFR - AA 82 Result Comment: GFR Calc LAB L501.1300 10-20 RATIO Normal BUN/CRE 14.5 LAB L501.1500 6.4-8.2 g/dL T Normal PROT 7.9 LAB L501.1800 3.2-5.0 g/dL Normal ALB 3.6 LAB L501.1950 2.2-4.2 g/dL High GLOB 4.3 LAB L501.2000 0.9-2.4 RATIO Low A/G 0.8 LAB L501.2200 8.5-10.1 mg/dL CA Normal 8.8 LAB L501.4100 15-37 U/L Normal AST 18 LAB L501.4305 45-117 U/L High ALK P 124 LAB L501.4405 16-61 U/L Normal ALT 27 LAB L501.4600 0.20-1.00 mg/dL T Normal BILI 0.50 LAB L501.5300 136-145 mmol/L NA Normal 137 LAB L501.5600 3.5-5.1 mmol/L K Normal 4.9 LAB L501.5900 98-107 mmol/L CL Normal 100 LAB L501.6100 21.0-32.0 mmol/L Normal CO2 30.0 LAB L501.6200 5-15 Normal GAP 7 Performed By: #### L500.4050, L501.9910 #### [facility] [address] [place], [address] PSA,TOTAL - ANNUAL Collected: 08/27/2017 Status: F Source: DILEEP SCREEN 8:56 AM [facility] REPOSITORY TYPE CODE TESTS RESULT OUT OF RANGE REFERENCE UNITS LAB L501.9910 0.00-4.00 ng/mL Normal PSA,TOT 0.34 SCREEN Result Comment: This test was performed using the TPSA assay method for the Visual Unity chemistry system. Values obtained with different assay methods cannot be used interchangably. When changing PSA assays in the course of monitoring a patient, additional sequential testing should be carried out to confirm baseline values. Performed By: #### L500.4050, L501.9910 #### [facility] [address] [place], [address] ALLERGIES ALLERGIES DATE TYPE / CODE NAME / CODE REACTION SEVERITY SOURCE 01/30/2018 Drug adhesive/F00 Rash Unknown [facility] Allergy/4160 [id number]([place] 1975702([facility]) Repository CT) 01/30/2018 Drug latex/[id number] Unknown Unknown [facility] Allergy/4160 8921([place] [id number](SNOM[facility] Repository CT) ENCOUNTERS ENCOUNTERS ADMIT/DISCHARGE ACCOUNT ADMITTING ENCOUNTER LOCATION SOURCE NUMBER CLASS 01/30/2018/ [id number] [place] 3 [facility] ing:ED Repository 12/05/2017/ [id number] Ambulatory BMSBuilding:B [place] 8 2 [facility] Repository 08/29/2017 [id number] Ambulatory [place] 8 [facility] ing:LAB Repository 08/29/2017/ [id number] Ambulatory BMSBuilding:B [place] 8 9 [facility] Repository 08/27/2017 [id number] Ambulatory [place] 2 [facility] ing:MTLAB Repository PAYERS PAYERS ENCOUNTER GUARANTOR PAYER SUBSCRIBER SOURCE 01/30/2018 BERE Narayanan Primary BERE [id number] Insurance:SERA JIMENEZB: Community [facility] MEDICARE PPOPolicy [id number] Number: Repository [id number]: 330 [id number] [phone] (HP) Date:[id number] [address] [place] [id number]: 01/30/2018 Secondary NOT GIVENUNK [place] Insurance:SELF PAY [facility] [place] Number: Effective Repository Date:2018-01-30 12/05/2017 BERE Narayanan Primary BERE [id number] Insurance:SERA JIMENEZB: Community [facility] MEDICARE PPOPolicy [id number] Number: Repository [address]Zjl: 330 [id number] [phone] () Date:[id number] [address] [place] [address] [id number]: 12/05/2017 Secondary NOT GIVENUNK [place] Insurance:SELF PAY [facility] [place] Number: Effective Repository Date:2017-12-05 08/29/2017 BERE Narayanan Primary BERE [id number] Insurance:ANTHFERMÍN JIMENEZB: Community [facility] MEDIC[facility] PPOPolicy [id number] Number: Repository [address]Rya: 330 [id number] [phone] (HP) Date:[id number] [address] [place] [address] [id number]: 08/29/2017 Secondary NOT GIVENUNK [place] Insurance:SELF PAY [facility] [place] Number: Effective Repository Date:2017-08-29 08/29/2017 BERE Narayanan Primary BERE [id number] Insurance:ANTHEM REJIDOB: Community [facility] MEDIC[facility] PPOPolicy [id number] Number: Repository [address]Uwe: 330 [id number] [phone] () Date:[id number] [address] [place] [address] [id number]: 08/29/2017 Secondary NOT GIVENUNK [place] Insurance:SELF PAY [facility] [place] Number: Effective Repository Date:2017-08-29 08/27/2017 Bere Narayanan Primary BERE [id number] Insurance:SERA MENDOZADOB: Community [place] [facility] MEDICARE PPOPolicy [id number] Number: Repository [address]Ecu: 330 [id number] [phone] () Date:[id number] [id number] [place] [address] [id number]: 08/27/2017 Secondary NOT GIVENUNK [place] Insurance:SELF PAY [facility] Number: Effective Repository Date:2017-08-27
== END 2018-01-30 16:41 | disposition home or self-care (01) ==
PROVIDERS: Emergency Provider Emergency Medicine
DX: K58.0 Irritable bowel syndrome with diarrhea (principal); R10.9 Unspecified abdominal pain; E10.9 Type 1 diabetes mellitus without complications; I10 Essential (primary) hypertension; N40.0 Benign prostatic hyperplasia without lower urinary tract symptoms; E03.9 Hypothyroidism, unspecified; Z79.4 Long term (current) use of insulin; Z79.82 Long term (current) use of aspirin; Z79.899 Other long term (current) drug therapy; Z87.891 Personal history of nicotine dependence
CPT/HCPCS: 74177; 80053; 81001; 83690; 85025; 96360; 99283; J7030; Q9967; A4216

== ENCOUNTER → 2018-03-11 10:01 | Outpatient (CLI) | payer MEDICARE, SELFPAY ==
[2018-03-11 12:19] LABS: ALB/GLOB Ratio 0.9 RATIO (0.9-2.4); AST(SGOT) 17 U/L (15-37); Alanine Aminotransfer ALT/SGPT 34 U/L (16-61); Albumin, Serum 3.4 g/dL (3.2-5.0); Alkaline Phosphatase 126 U/L (45-117); Anion Gap 7 (5-15); BUN 19 mg/dL (7-18); BUN/Creat Ratio 15.7 RATIO (10-20); Calcium,Total 8.6 mg/dL (8.5-10.1); Chloride 100 mmol/L (98-107); Creatinine, Serum 1.21 mg/dL (0.70-1.30); EST Glomerular Filtration Rate 65 mL/min (>60); Est Glom Filt Rate - Afr Amer 79 mL/min (>60); Globulin 3.8 g/dL (2.2-4.2); Glucose 126 mg/dL (74-106); Potassium 4.2 mmol/L (3.5-5.1); Protein, Total 7.2 g/dL (6.4-8.2); Sodium Level 136 mmol/L (136-145); Thyroid Stim Hormone (TSH) 1.71 uIU/mL (0.358-3.74)
[2018-03-11 12:36] LABS: Hemoglobin A1c 9.9 % (4.2-6.3)
[2018-03-11 12:52] LABS: Microalbumin:Creatinine Ratio 589.1 mg/g CRE (<30 mg/g CRE)
== END ==
PROVIDERS: Referring Provider Nurse Practitioner; Visit Provider Nurse Practitioner
DX: E10.9 Type 1 diabetes mellitus without complications (principal)
CPT/HCPCS: 36415; 80053; 82043; 82570; 83036; 84443

== ENCOUNTER → 2018-06-16 09:04 | Outpatient (CLI) | payer MEDICARE, SELFPAY ==
[2018-05-27 08:14] VITALS: BMI 28.3
[2018-06-16 10:21] LABS: Absolute Lymphocyte Count 1.33 X10^3/ul (0.83-4.51); Absolute Neutrophil Count 3.9 X10^3/uL (2.0-7.7); Basophil# 0.02 X10^3/uL; Basophil% 0.3 % (0-1); Eosinophil# 0.14 X10^3/uL; Eosinophils% 2.4 % (0-5); Hemoglobin 13.3 g/dl (13.0-16.5); Lymphocyte # 1.33 X10^3/ul (4.0); Lymphocyte % 22.4 % (19-41); Mean Corp Hgb Conc 33.3 g/gl (32-36); Mean Corpuscular Hgb 29.9 pg (27.0-32.0); Mean Corpuscular Volume 89.9 fL (80-94); Mean Platelet Vol. 8.9 fl (6.2-12.0); Monocyte# 0.51 X10^3/uL; Monocyte% 8.6 % (0-10); Neutrophil # 3.92 X10^3/uL (2.7-7.7); Platelet Count 413 K/mm3 (150-450); RBC Distribution Width CV 13.5 % (11.6-14.6); RBC Distribution Width SD 43.5 fl (35.1-43.9); Red Blood Count 4.45 M/mm3 (4.6-6.2); White Blood Count 5.9 K/mm3 (4.4-11.0)
[2018-06-16 10:27] LABS: POSITIVE COUNT NO; POSITIVE DIFFERENTIAL NO; POSITIVE MORPHOLOGY NO
[2018-06-16 10:31] LABS: AST(SGOT) 33 U/L (15-37); Alanine Aminotransfer ALT/SGPT 56 U/L (16-61); Albumin, Serum 3.6 g/dL (3.2-5.0); Alkaline Phosphatase 156 U/L (45-117); Bilirubin, Direct 0.08 mg/dL (0.00-0.30); Globulin 4.3 g/dL (2.2-4.2); Protein, Total 7.9 g/dL (6.4-8.2)
[2018-06-16 10:39] LABS: Cholesterol 310 mg/dL (200); High Density Lipoprotein 62 mg/dL; Potassium 4.7 mmol/L (3.5-5.1); Triglycerides 243 mg/dL; Very Low Density Lipoprotein 49 mg/dL (5-40)
== END ==
PROVIDERS: Family Provider Internal Medicine; PCP Internal Medicine; Referring Provider Dermatology; Visit Provider Dermatology
DX: Z79.899 Other long term (current) drug therapy (principal); E78.5 Hyperlipidemia, unspecified; E87.5 Hyperkalemia
CPT/HCPCS: 36415; 80061; 80076; 84132; 85025

== ENCOUNTER → 2018-10-03 09:48 | Outpatient (CLI) | payer MEDICARE, SELFPAY ==
[2018-08-22 09:51] VITALS: BMI 28.3
--- NOTE | 2018-10-03 09:53 | EKG12_ITS ---
Test Reason : HYPERTENSION Blood Pressure : / mmHG Vent. Rate : 061 BPM Atrial Rate : 061 BPM P-R Int : 154 ms QRS Dur : 084 ms QT Int : 406 ms P-R-T Axes : 049 007 024 degrees QTc Int : 408 ms Normal sinus rhythm Low voltage QRS (limb leads) Confirmed by QUOC WERNER, NUNO ([id number]), editor farm journal DANTE MENDOZA ([id number]) on 10/06/2018 11:51:38 AM Referred By: Madhav Avendano Confirmed By:NUNO KUMARI MD
== END ==
PROVIDERS: Family Provider Internal Medicine; PCP Internal Medicine; Referring Provider Internal Medicine; Visit Provider Internal Medicine
DX: I10 Essential (primary) hypertension (principal)
CPT/HCPCS: 93005

== ENCOUNTER → 2019-01-12 09:51 | Outpatient (CLI) | payer MEDICARE, SELFPAY ==
[2019-01-05 14:33] VITALS: BMI 28.3
--- NOTE | 2019-01-12 09:56 | RAD_ITS ---
STUDY: X-RAY - CERVICAL SPINE REASON FOR EXAM: Male, 58 years old. Right arm numbness tingling TECHNIQUE: 5 view(s) of the cervical spine were obtained. COMPARISON: None FINDINGS: Normal anterior atlantoaxial articulation. Normal odontoid process. Normal cervical lordosis. Normal vertebral bodies and endplates. Normal disc space heights. Normal visualized intervertebral neuroforamina. There are extensive arthroscopic calcifications bilaterally in the carotid bulbs. RAD/Cerv Spine 2 or 3 Views IMPRESSION: Normal x-ray examination of the visualized cervical spine. Bilateral carotid bulb calcifications. Refer to ultrasonography for evaluation of possible carotid stenosis. Electronically Signed: Murray Vasquez, at 17:53 EST Tel , Service support ,
[2019-01-12 13:07] LABS: ALB/GLOB Ratio 0.9 RATIO (0.9-2.4); AST(SGOT) 26 U/L (15-37); Alanine Aminotransfer ALT/SGPT 45 U/L (16-61); Albumin, Serum 3.7 g/dL (3.2-5.0); Alkaline Phosphatase 178 U/L (45-117); Anion Gap 9 (5-15); BUN 24 mg/dL (7-18); BUN/Creat Ratio 19.2 RATIO (10-20); Calcium,Total 9.1 mg/dL (8.5-10.1); Chloride 98 mmol/L (98-107); Cholesterol 310 mg/dL (200); Creatinine, Serum 1.25 mg/dL (0.70-1.30); EST Glomerular Filtration Rate 63 mL/min (>60); Est Glom Filt Rate - Afr Amer 76 mL/min (>60); Globulin 4.3 g/dL (2.2-4.2); Glucose 331 mg/dL (74-106); High Density Lipoprotein 61 mg/dL; PSA,Total - Annual Screen 0.25 ng/mL (0.00-4.00); Potassium 4.5 mmol/L (3.5-5.1); Sodium Level 131 mmol/L (136-145); Thyroid Stim Hormone (TSH) 2.67 uIU/mL (0.358-3.74); Triglycerides 167 mg/dL; Very Low Density Lipoprotein 33 mg/dL (5-40)
[2019-01-12 13:15] LABS: Hemoglobin A1c 8.9 % (4.2-6.3)
== END ==
PROVIDERS: Nurse Practitioner; Family Provider Internal Medicine; PCP Internal Medicine; Referring Provider Internal Medicine; Visit Provider Internal Medicine
DX: M54.12 Radiculopathy, cervical region (principal); Z12.5 Encounter for screening for malignant neoplasm of prostate; E10.65 Type 1 diabetes mellitus with hyperglycemia
CPT/HCPCS: 36415; 72040; 80053; 80061; 82043; 83036; 84153; 84443; G0103

== ENCOUNTER 2019-03-19 13:50 | Outpatient (RCR) | payer MEDICARE, SELFPAY ==
[2019-01-05 14:33] VITALS: BMI 28.3
--- NOTE | 2019-03-26 08:51 | HP.PTEVAL ---
Patient's Visit Information BERE MENDOZA is a 58 year old M referred to Physical Therapy by SHAUN Frost with a diagnosis of Cervical radiculopathy. Date of Evaluation: 03/19/19 Physical Therapist: Suman Roman DPT - Visit Plan Frequency: 2x /Week Duration: 4-6 Weeks Plan: Start with light distraction, cervical retraction, cervical retraction small motions. Start with gentle PAs, Progress ROM as tolerated. May use US or IFC to calm symptoms. - Subjective Findings: Pt. is here today for her initial evaluation for his initial diagnosis of cervical radiculopathy. Pt. reports having increased pain for the past few months. Pt. reports his symptoms have become worse over the past few weeks. Pt. reports thinking this is stemming from senior care sleeping on the couch with increased neck flexion. Pt. reports seeing chiropractor without much relief. He is taking some medications, but again minimal relief. He reports symptoms radiate into his anterior R shoulder and R shoulder blade. Pt. reports increasd pain in Ams, and intermittent sharp pain throughout the day. Pt. reports having reduced symptoms with supine lying. Pt. does report numbness and tingling in his R shoulder to deltoid region, nothing beyond the elbow. Pt. has had an xray showing no pronounced issues. Pt. is hopeful to reduce symptoms in order to get back to all work and recreational activities without limitations. - Pain Cervical spine Pain Intensity (Out of 10): 6 Pain Intensity Range: 4, 8 - Objective POSTURE: Pt. has fwrd flexed posture with rounded shoulders. Pt. has increased pain with attempting to improved neck positioning. Increased lower cervical flexion, and upper cervical extension. PALPATION: Pt. has increased tenderness along B cervical erector spinea. Pt. has increased pain with spring testing at C5-C7 with hypomobility noted. Pt. has tenderness at levator scapulea muscle belly as well. NEURO: Pt. has normal sensation in BUEs and normal DTR, but reports a feeling of tingling in his R UE (proximal). ROM: CERVICAL SPINE: flexion nil loss NE, extension max loss increase NW, SB - min loss increase NW, SB L min loss increase NW, rotation R mod loss increase NW, rotation L min loss increase NW. Pt. has ~90% of shoulder motion into flexion, increase in posterior scapulea pain with shoulder flexion, normal rest of shoulder mobility. Thoracic spine: min loss into extension with increase in symptoms of lower cervical spine. MMT: LUE- wrist 5/5 throughout, elbow 5/5 throughout; shoulder 5/5 throughout. Backup Engineer strength 82#. RUE- wrist 5/5 throughout; elbow 5/5 throughout; shoulder- 5-/5 abd, 5/5 rest. Backup Engineer strengh 58#. Pt. is R hand dominant - Special Tests C/S Radiculapathy - Left Upper limb tension test: Negative C/S Radiculapathy - Right Upper limb tension test: Negative C/S Radiculapathy - Left Spurlings: Negative C/S Radiculapathy - Right Spurlings: Positive C/S Radiculapathy - Left Relief test: Negative C/S Radiculapathy - Right Relief test: Negative Sharp Maida: Negative Vertebral Artery Test: Negative Alar Ligament Test: Negative Cervical Sitting: Protrusion - Mechanical Response: No effect Cervical Sitting: Protrusion - Symptoms During Testing: No effect Cervical Sitting: Protrusion - Symptoms After Testing: No effect Cervical Sitting: Retraction - Mechanical Response: No effect Cervical Sitting: Retraction - Symptoms During Testing: Increases Cervical Sitting: Retraction - Symptoms After Testing: Worse Cervical Sitting: Sidebend Right - Mechanical Response: No effect Cervical Sitting: Sidebend Right - Symptoms During Testing: Increases Cervical Sitting: Sidebend Right - Symptoms After Testing: No worse Cervical Sitting: Sidebend Left - Mechanical Response: No effect Cervical Sitting: Sidebend Left - Symptoms During Testing: Increases Cervical Sitting: Sidebend Left - Symptoms After Testing: No worse Cervical Sitting: Rotation Right - Mechanical Response: No effect Cervical Sitting: Rotation Right - Symptoms During Testing: Increases Cervical Sitting: Rotation Right - Symptoms After Testing: No worse Cervical Sitting: Rotation Left - Mechanical Response: No effect Cervical Sitting: Rotation Left - Symptoms During Testing: Increases Cervical Sitting: Rotation Left - Symptoms After Testing: No worse Cervical Sitting: Flexion - Mechanical Response: No effect Cervical Sitting: Flexion - Symptoms During Testing: No effect Cervical Sitting: Flexion - Symptoms After Testing: No effect Cervical Lying: Retraction - Mechanical Response: No effect Cervical Lying: Retraction - Symptoms During Testing: No effect Cervical Lying: Retraction - Symptoms After Testing: No effect - Goals Goal 1:: LTG: Pt. to be I with HEP for ROM and cervical stability. Goal Time Frame: 4-6 Weeks Goal 2:: STG: Pt. to sleep throughout the night with 0-2/10 pain in cervical spine and R shoulder. Goal Time Frame: 2-4 Weeks Goal 3:: STG: Pt. to have in increased cervical ROM by 25% in all directions without increase in symptoms. Goal Time Frame: 2-4 Weeks Goal 4:: STG: Pt. to have reduce radicular symptoms in 50%. Goal Time Frame: 2-4 Weeks Goal 5:: LTG: Pt. to have full strength of R UE symmetrical to L side Goal Time Frame: 4-6 Weeks Goal 6:: LTG: pt. to complete all work duties without increase in symptoms. Goal Time Frame: 4-6 Weeks - Rehabilitation Potential Physical Therapy Diagnosis: Pt. has signs and symptoms consistent with cervical radiculopathy with radiation down his R UE. Pt. symptoms are mostly in cerical region, radiating to anterior shoulder and deltoid region. Pt. has strong RTC and shoulder testing, some increase in symptoms with over head reaching. Pt. is very stiff through with cervical spine especially into extension. Extension causes radicular symptoms as well. Pt. would benefit from Pt to reduce pain, increase ROM and educate in prophaxis techniques to reduce further and/or another episode of injury. Rehabilitation Potential: Good - Anticipated Interventions Patient/Client Instruction: Educate patient on: Condition, Plan of Care, Risk Factors, Benefits of Fitness Program For the Purpose of:: To improve health and function, To foster healthy habits, To improve decision making, To facilitate caregiver knowledge, To improve self management, To prevent re-injury, To improve ability to perform tasks related to life management, To improve tolerance to ADL's Therapeutic Exercise to Include: Strength training, Power training, Body mechanics, Postural training, Flexibilty training, Passive ROM, Active ROM, [place] Exercises, Scapular Strength/Stabilization For the Purpose of:: To decrease pain, To increase ROM, To improve nutrient delivery to tissue, To increase oxygenation perfusion, To improve muscle performance and motor function, To improve ability to perform ADL's, To improve health of tissue, To decrease soft tissue restriction, To increase flexibility/ROM Manual Therapy Techniques to Include: Mobilization, Manipulation, Functional dry needling, Soft tissue mobilization For the Purpose of:: To decrease pain, To decrease swelling/inflammation, To increase ROM, To improve nutrient delivery to tissue, To increase oxygenation perfusion, To improve muscle performance and motor function, To improve health of tissue, To decrease soft tissue restriction, To increase flexibility/ROM IF ES: Yes Cryotherapy (ice pack, ice massage): Yes Thermo therapy (hot pack): Yes Ultrasound (thermal/non thermal): Yes For the Purpose of:: To decrease pain, To decrease swelling/inflammation, To increase ROM, To improve nutrient delivery to tissue, To improve health of tissue, To decrease soft tissue restriction, To increase flexibility/ROM Thank you for the opportunity to evaluate your patient. For Medicare and Medicare HMO plans, please review the plan of care and approve it. It will need to be FAXED BACK to us at [phone] for Medicare purposes. For Medicare only, by signing this I certify the plan of care. Please let me know if there are questions or concerns regarding this plan of care. Physician Signature: Date:
--- NOTE | 2019-09-02 10:08 | HP.PT.NRP ---
BERE MENDOZA was seen in my office for initial evaluation on 03/19/19. The following Plan of Care was established for this patient: Initial Frequency: 2x /Week Initial Duration: 4-6 Weeks Patient/Client Instruction: Educate patient on: Condition, Plan of Care, Risk Factors, Benefits of Fitness Program For the Purpose of:: To improve health and function, To foster healthy habits, To improve decision making, To facilitate caregiver knowledge, To improve self management, To prevent re-injury, To improve ability to perform tasks related to life management, To improve tolerance to ADL's Therapeutic Exercise to Include: Strength training, Power training, Body mechanics, Postural training, Flexibilty training, Passive ROM, Active ROM, [place] Exercises, Scapular Strength/Stabilization For the Purpose of:: To decrease pain, To increase ROM, To improve nutrient delivery to tissue, To increase oxygenation perfusion, To improve muscle performance and motor function, To improve ability to perform ADL's, To improve health of tissue, To decrease soft tissue restriction, To increase flexibility/ROM Manual Therapy Techniques to Include: Mobilization, Manipulation, Functional dry needling, Soft tissue mobilization For the Purpose of:: To decrease pain, To decrease swelling/inflammation, To increase ROM, To improve nutrient delivery to tissue, To increase oxygenation perfusion, To improve muscle performance and motor function, To improve health of tissue, To decrease soft tissue restriction, To increase flexibility/ROM IF ES: Yes Cryotherapy (ice pack, ice massage): Yes Thermo therapy (hot pack): Yes Ultrasound (thermal/non thermal): Yes For the Purpose of:: To decrease pain, To decrease swelling/inflammation, To increase ROM, To improve nutrient delivery to tissue, To improve health of tissue, To decrease soft tissue restriction, To increase flexibility/ROM This patient was last seen in our office 03/19/19. Pertinent comments regarding their Physical therapy will appear below: Pt. has not been seen in several months and will be DC from PT at this point in time. At this point I will be discontinuing this patient from physical therapy. I would be happy to see this patient again in the future if found appropriate by the physician. Thank you! Suman Roman, MATTHEWT
== END 2019-03-19 19:00 | disposition home or self-care (01) ==
LOC: PT 13:50
PROVIDERS: PCP Internal Medicine; Referring Provider Nurse Practitioner Family; Visit Provider Nurse Practitioner Family
DX: M54.12 Radiculopathy, cervical region (principal)
CPT/HCPCS: 97161

== ENCOUNTER → 2019-04-20 11:10 | Outpatient (CLI) | payer MEDICARE, SELFPAY ==
[2019-04-10 10:33] VITALS: BMI 26.7
--- NOTE | 2019-04-20 11:11 | RAD_ITS ---
STUDY: X-RAY RIGHT FOOT, GREAT TOE REASON FOR EXAM: Pain and redness, no specific injury. TECHNIQUE: 3 view(s) of the toe were obtained. COMPARISON: Radiographs 09/21/2012. FINDINGS: Normal metatarsal. Normal metatarsophalangeal (M.T.P) joint. Normal interphalangeal joint. Normal phalanges. There is a metallic foreign body at the plantar aspect of the ungual tuft of the great toe. There is vascular calcification. RAD/Toe(s) Min 2 Views IMPRESSION: Foreign body. Electronically Signed: Abraham Hackett MD at 10:39 EST Tel , Service support ,
== END ==
PROVIDERS: PCP Internal Medicine; Referring Provider Nurse Practitioner Family; Visit Provider Nurse Practitioner Family
DX: M79.674 Pain in right toe(s) (principal)
CPT/HCPCS: 73660

== ENCOUNTER → 2019-04-24 10:14 | Outpatient (CLI) | payer MEDICARE, SELFPAY ==
[2019-04-10 10:33] VITALS: BMI 26.7
--- NOTE | 2019-04-24 10:14 | MRI_ITS ---
STUDY: MRI CERVICAL SPINE WITHOUT CONTRAST REASON FOR EXAM: Male, 58 years old. WORSENING CERVICAL PAIN, radiates into RIGHT shoulder, NKI TECHNIQUE: Standardized fat and water weighted pulse sequences were obtained in the sagittal and axial planes. COMPARISON: X-ray 01/12/2019, CT 05/26/2014 FINDINGS: Normal foramen magnum and brainstem-cervical cord junction. Normal craniovertebral junction. Normal anterior atlantoaxial articulation. Normal odontoid process. There is straightening of the normal cervical lordosis. Normal vertebral bodies and posterior osseous elements. C2-3: Normal endplates. Normal disc height, signal and morphology. Normal central canal and intervertebral neural foramina. C3-4: Mild broad disc osteophyte complex and bilateral vertebral hypertrophy produces mild spinal stenosis and mild bilateral neural foraminal stenosis. C4-5: Mild broad disc osteophyte complex with a central disc protrusion produces moderate spinal stenosis with abutment of the central spinal cord and no neural foraminal stenosis. C5-6: Mild broad disc osteophyte complex produces mild spinal stenosis but no neural foraminal stenosis. C6-7: Mild broad disc osteophyte complex produces mild spinal stenosis but no neural foraminal stenosis. C7-T1: Normal endplates. Normal disc height, signal and morphology. Normal central canal and intervertebral neural foramina. Normal cervical cord. Normal visualized soft tissue structures. MRI/Spine Cervical (Routine) IMPRESSION: Multilevel degenerative changes, as described above. Electronically Signed: Timi Nicole MD at 12:33 EST Tel , Service support ,
== END ==
PROVIDERS: PCP Internal Medicine; Referring Provider Internal Medicine; Visit Provider Internal Medicine
DX: M54.12 Radiculopathy, cervical region (principal)
CPT/HCPCS: 72141

== ENCOUNTER → 2019-07-28 | Outpatient (CLI) | payer MEDICARE, SELFPAY ==
[2019-07-28 14:44] VITALS: BMI 28.3
[2019-07-28 18:18] LABS: ALB/GLOB Ratio 0.8 RATIO (0.9-2.4); AST(SGOT) 19 U/L (15-37); Alanine Aminotransfer ALT/SGPT 28 U/L (16-61); Albumin, Serum 3.4 g/dL (3.2-5.0); Alkaline Phosphatase 150 U/L (45-117); Anion Gap 7 (5-15); BUN 27 mg/dL (7-18); BUN/Creat Ratio 15.2 RATIO (10-20); Calcium,Total 8.9 mg/dL (8.5-10.1); Chloride 100 mmol/L (98-107); Creatinine, Serum 1.78 mg/dL (0.70-1.30); EST Glomerular Filtration Rate 42 mL/min (>60); Est Glom Filt Rate - Afr Amer 50 mL/min (>60); Globulin 4.1 g/dL (2.2-4.2); Glucose 281 mg/dL (74-106); Protein, Total 7.5 g/dL (6.4-8.2); Sodium Level 135 mmol/L (136-145)
== END | disposition home or self-care (01) ==
LOC: LABSPEC 16:39
PROVIDERS: PCP Internal Medicine; Referring Provider Internal Medicine Endocrinology, Diabetes & Metabolism; Visit Provider Internal Medicine Endocrinology, Diabetes & Metabolism
DX: E10.9 Type 1 diabetes mellitus without complications (principal)
CPT/HCPCS: 80053

== ENCOUNTER 2019-08-26 10:45 | Outpatient (RCR) | payer MEDICARE, SELFPAY ==
[2019-08-11 13:18] VITALS: BMI 28.0
[2019-08-12 09:05] VITALS: BP 194/74; PULSE 64; RESP 16; TEMP 36.6; BMI 28.0
--- NOTE | 2019-08-12 11:14 | HP.PCM_ITS ---
(1) Decubitus ulcer of foot, stage 2 Status: Acute Current Visit: Yes Qualifiers: Laterality: right Code(s): L89.892 - Pressure ulcer of other site, stage 2 (2) Type 1 diabetes mellitus Status: Chronic Current Visit: No Qualifiers: Diabetes mellitus complication status: with hyperglycemia Qualified Code(s): E10.65 - Type 1 diabetes mellitus with hyperglycemia Code(s): E10.9 - Type 1 diabetes mellitus without complications Comment: Dx : age 12 Last exacerbation : DKA : never Hypoglycemic episode : never ER visit : never (3) Decubitus ulcer of foot, stage 2 Status: Acute Current Visit: Yes Qualifiers: Laterality: left Qualified Code(s): L89.892 - Pressure ulcer of other site, stage 2 Code(s): L89.892 - Pressure ulcer of other site, stage 2 (4) Decubitus ulcer of foot, stage 2 Status: Acute Current Visit: Yes Code(s): L89.892 - Pressure ulcer of other site, stage 2 (5) Diabetic foot ulcer associated with diabetes mellitus due to underlying condition Status: Acute Current Visit: Yes Qualifiers: Diabetic foot ulcer location: midfoot Code(s): E08.621 - Diabetes mellitus due to underlying condition with foot ulcer; L97.509 - Non-pressure chronic ulcer of other part of unspecified foot with unspecified severity History of Present Illness Date of Service: 08/12/19 Chief Complaint: Follow up bilateral open ulcers bilateral dorsal feet. History of Wound: 58-year-old white male with diabetes not well controlled was wearing crocs and a latter working and sweating 1 week ago. He later noted 2 blisters had formed on the top of his feet from rubbing. He burst the blisters open and started using topical antibiotics. Did see his family doctor and was put on oral antibiotics and told to follow-up in the wound center for debridement. Past Medical History Past Medical History: Chronic Problems (Last Reviewed 08/11/19 @ 13:16 by Philly Gallardo) Carotid artery stenosis (Chronic) Bradycardia (Chronic) Hypothyroidism (Chronic) BPH (benign prostatic hyperplasia) (Chronic) Hyperlipidemia (Chronic) Abdominal pain (Chronic) Sleep apnea (Chronic) Hearing problem (Chronic) Back problem (Chronic) Type 1 diabetes mellitus (Chronic) Dx : age 12 Last exacerbation : DKA : never Hypoglycemic episode : never ER visit : never Meniere's disease (Chronic) Acquired plantar keratoderma (Chronic) Essential hypertension (Chronic) BP elevated today. Make appt with Dr. Avendano to begin working diligently on HTN. Past Medical History: Open blisters bilateral dorsal feet forming DFU's Allergies/Adverse Reactions: Allergies latex Allergy (Unknown, Verified 08/05/19 09:09) Unknown adhesive Allergy (Verified 08/12/19 09:32) Rash [id number]-Xhp Reductase Inhibitor Adverse Reaction (Severe, Verified 08/12/19 09:32) muscle pain Home Medications: Ambulatory Orders Medication Instructions Recorded insulin lispro 100 unit/mL See Rx Instructions SC TID #44 ml 01/27/18 subcutaneous pen blood sugar diagnostic See Dose Instructions .ROUTE 05/29/18 .MEDSUPPLY #360 ea aspirin 81 mg tablet,delayed 81 mg PO DAILY 09/19/18 release fluticasone propionate 50 1 spray INTRANASAL DAILY PRN 09/19/18 mcg/actuation nasal spray,suspension insulin glargine 100 unit/mL (3 25 unit SC HS ml 09/19/18 mL) subcutaneous pen sildenafil 100 mg tablet 50 mg PO DAILY PRN tab 09/19/18 blood pressure monitor See Rx Instructions .ROUTE 01/05/19 .MEDSUPPLY #1 ea amlodipine 10 mg tablet 10 mg PO DAILY #90 tab 05/06/19 hydrochlorothiazide 12.5 mg tablet 12.5 mg PO DAILY #90 tab 05/06/19 levothyroxine 137 mcg tablet 137 mcg PO DAILY #90 tab 06/19/19 losartan 100 mg tablet 100 mg PO DAILY #90 tab 06/19/19 doxycycline hyclate 100 mg capsule 100 mg PO BID #20 cap 08/05/19 metoprolol tartrate 25 mg tablet 25 mg PO BID tab 08/11/19 Smoking Status: Former smoker Review of Systems Constitutional: Denies: Chills, Fever Eyes: Denies: Blurred vision, Drainage, Pain HEENT: Denies: Difficulty Hearing, Difficulty Swallowing, Sore Throat, Visual Changes Cardiovascular: Denies: Chest Pain, Palpitations, Syncope Respiratory: Denies: Cough, Shortness of Breath Gastrointestinal: Denies: Abdominal Pain, Nausea, Vomiting Genitourinary: Denies: Dysuria, Frequency Musculoskeletal: Denies: Joint Pain, Muscle pain Skin: Reports: - - Open ulcers bilateral feet DFU's. Denies: Jaundice, Rash Neurological: Denies: Balance problems, Change in Speech, Difficulty swallowing, Focal weakness Psychiatric: Denies: Anxiety, Depression Endocrine: Denies: Change in Body Habitus Hematologic/ Lymphatic: Denies: Adenopathy - Physical Exam Vital Signs Temp Pulse Resp BP 98 F 64 16 194/74 H 08/12/19 09:05 08/12/19 09:05 08/12/19 09:05 08/12/19 09:05 General: Oriented x3, Cooperative, Well developed HEENT: Atraumatic, PERRLA Oral: Moist Mucosa Neck: Supple, No JVD Lungs: Clear to auscultation, Normal air movement Cardiovascular: Regular rate, Regular Rhythm Abdomen: Bowel Sounds Present, Soft, Non Tender, No Hepato-splenomegaly Extremities: No clubbing, No edema Skin: Ulcer/ Wound - ulcers DFU's bilateral dorsal feet Wound Measurements and Assessment WC - Nurse 1 - General Ulcer Measurement Start: 08/12/19 09:05 Freq: Status: Active Protocol: Activity Type Activity Date Activity User E-Sign Co-Sign Detail Recorded Client Recorded Date Recorded By Document 08/12/19 09:05 [facility] [id number] 08/12/19 09:30 [facility] 08/12/19 09:05 Wound Center Nurse 1 [Ulcer Assessment] #2- L DORSAL FOOT -Combined with other wound No -Current Size (cm) - Length 1.1 -Current Size (cm) - Width 2.4 -Current Size (cm) - Depth 0.2 -Total Square Cm 2.64 -Date of Last Picture (Recall this 08/12/19 field) -Photo Taken Yes -Epithelialization None Present -Tunneling No -Undermining/Tunneling No -Circular Undermining No -Exudate Amt Small -Exudate Type Serosanguineous -Wound Margin Distinct, Outline Attached -Granulation Amt None Present (0 %) -Slough/Fibrin Yes -Necrosis Amt Large (67-100%) -Necrotic Tissue Type Adherent Slough -Texture (Grace-wound Skin Appearance) Assessed, Scarring -Moisture (Grace-wound Skin Appearance Assessed, ) Maceration -Color (Grace-wound Skin Appearance) Assessed, Erythema,Palor -Temperature (Grace-wound Skin No Abnormality Appearance) (Pt Warm) -Tenderness on Palpation (Grace-wound No Skin Appearance) -Ulcer Cleansing Rinsed/ Irrigated with Saline -Foul Odor after Cleansing No -Anesthetic Used 5% Lidocaine Gel #1- R DORSAL FOOT -Combined with other wound No -Current Size (cm) - Length 1 -Current Size (cm) - Width 1.6 -Current Size (cm) - Depth 0.2 -Total Square Cm 1.6 -Date of Last Picture (Recall this 08/12/19 field) -Photo Taken Yes -Epithelialization None Present -Tunneling No -Undermining/Tunneling No -Circular Undermining No -Exudate Amt Small -Exudate Type Serosanguineous -Wound Margin Distinct, Outline Attached -Granulation Amt None Present (0 %) -Slough/Fibrin Yes -Necrosis Amt Large (67-100%) -Necrotic Tissue Type Adherent Slough -Texture (Grace-wound Skin Appearance) Assessed, Scarring -Moisture (Grcae-wound Skin Appearance Assessed, ) Maceration -Color (Grace-wound Skin Appearance) Assessed, Erythema,Palor -Temperature (Grace-wound Skin No Abnormality Appearance) (Pt Warm) -Tenderness on Palpation (Grace-wound Yes Skin Appearance) -Ulcer Cleansing Rinsed/ Irrigated with Saline -Foul Odor after Cleansing No -Anesthetic Used 5% Lidocaine Gel [Edema Assessment] -Lower Limb Edema Present No -Right Calf (cm) 36.7 -Right Ankle (cm) 21.1 -Left Calf (cm) 35.5 -Left Ankle (cm) 21 WC - Nurse 2 - General Ulcer CM Notes Start: 08/12/19 09:05 Freq: Status: Active Protocol: Activity Type Activity Date Activity User E-Sign Co-Sign Detail Recorded Client Recorded Date Recorded By Document 08/12/19 09:51 MW [id number] 08/12/19 10:03 MW 08/12/19 09:51 Wound Center Nurse 2 [Procedure/Treatment] #2- L DORSAL FOOT -Time 09:52 -Correct Patient Yes -Correct Side, Site, Position Yes -Correct Procedure Yes -Procedure Performed Yes -Type of Procedure Debridement -Clinical Debridement Subcutaneous -Post Debridement Size (cm) - Length 1.5 -Post Debridement Size (cm) - Width 2.5 -Post Debridement Size (cm) - Depth 0.2 -Total Square Cm 3.75 -Wound/Ulcer Outcome Not Healed -Ulcer Cleansing Rinsed/ Irrigated with Saline -Foul Odor after Cleansing No -Bioengineered Tissue No -Bleeding Controlled with Pressure -Offloading No -Treatment Response Procedure Tolerated Well #1- R DORSAL FOOT -Time 09:52 -Correct Patient Yes -Correct Side, Site, Position Yes -Correct Procedure Yes -Procedure Performed Yes -Type of Procedure Debridement -Clinical Debridement Subcutaneous -Post Debridement Size (cm) - Length 1.0 -Post Debridement Size (cm) - Width 2.0 -Post Debridement Size (cm) - Depth 0.1 -Total Square Cm 2.00 -Wound/Ulcer Outcome Not Healed -Ulcer Cleansing Rinsed/ Irrigated with Saline -Foul Odor after Cleansing No -Bioengineered Tissue No -Bleeding Controlled with Pressure -Offloading No -Treatment Response Procedure Tolerated Well [See Physician Procedure note for Specifics] Pain Scale: 0-10 Numeric [Pain] -Is Patient Pain Free? Yes Musculoskeletal: No Tenderness to Palpation of Joints or Extremities Lymphatic: No Cervical, Supraclavicular, or Inguinal Adenopathy Neurological: Cranial nerves II-XII grossly intact, Neuro grossly intact Psych/Mental Status: Normal Affect, Appropriate Debridement Note Post-Debridement Measurements/Treatment WC - Nurse 2 - General Ulcer CM Notes Start: 08/12/19 09:05 Freq: Status: Active Protocol: Activity Type Activity Date Activity User E-Sign Co-Sign Detail Recorded Client Recorded Date Recorded By Document 08/12/19 09:51 MW [id number] 08/12/19 10:03 MW 08/12/19 09:51 Wound Center Nurse 2 #2- L DORSAL FOOT -Time 09:52 -Correct Patient Yes -Correct Side, Site, Position Yes -Correct Procedure Yes -Procedure Performed Yes -Type of Procedure Debridement -Clinical Debridement Subcutaneous -Post Debridement Size (cm) - Length 1.5 -Post Debridement Size (cm) - Width 2.5 -Post Debridement Size (cm) - Depth 0.2 -Total Square Cm 3.75 -Wound/Ulcer Outcome Not Healed -Ulcer Cleansing Rinsed/ Irrigated with Saline -Foul Odor after Cleansing No -Bioengineered Tissue No -Bleeding Controlled with Pressure -Offloading No -Treatment Response Procedure Tolerated Well #1- R DORSAL FOOT -Time 09:52 -Correct Patient Yes -Correct Side, Site, Position Yes -Correct Procedure Yes -Procedure Performed Yes -Type of Procedure Debridement -Clinical Debridement Subcutaneous -Post Debridement Size (cm) - Length 1.0 -Post Debridement Size (cm) - Width 2.0 -Post Debridement Size (cm) - Depth 0.1 -Total Square Cm 2.00 -Wound/Ulcer Outcome Not Healed -Ulcer Cleansing Rinsed/ Irrigated with Saline -Foul Odor after Cleansing No -Bioengineered Tissue No -Bleeding Controlled with Pressure -Offloading No -Treatment Response Procedure Tolerated Well Pain Scale: 0-10 Numeric Is Patient Pain Free? Yes Wound debrided: Right dorsal foot DFU Type of Debridement: Excisional debridement Anesthesia Used: 5% Lidocaine Gel Depth: Down to and including healthy tissue, in the subcutaneous layer Percentage of wound debrided: 100 Instrument Used: 5mm curette Tissue Removed: Slough Severity: Limited To Skin Breakdown Amount of bleeding with debridement: Mild Bleeding Controlled with: Compression and gauze Patient tolerated procedure well - Additional Wound Wound debrided: Left dorsal foot ulcer Type of Debridement: Excisional debridement Anesthesia Used: 5% Lidocaine Gel Depth: Down to and including healthy tissue Percentage of wound debrided: 100 Instrument Used: 5mm curette, #15 blade, Forceps Tissue Removed: Slough Severity: Fat Layer Exposed Amount of bleeding with debridement: Mild Bleeding Controlled with: Compression and gauze Patient tolerated procedure: Patient tolerated procedure well Assessment/Plan Active Problems (Last Reviewed 08/11/19 @ 13:16 by Philly Gallardo) Decubitus ulcer of foot, stage 2 (Acute) Decubitus ulcer of foot, stage 2 (Acute) Decubitus ulcer of foot, stage 2 (Acute) Diabetic foot ulcer associated with diabetes mellitus due to underlying condition (Acute) Assessment: Diabetic foot ulcers bilateral dorsal feet. Infected wounds. Diabetes type 1 uncontrolled Plan: Wash feet with antibacterial soap. Apply Aquacel extra to wound base moistened cover with Adaptic gauze and tape. Follow up 1 week
[2019-08-19 09:33] VITALS: BP 190/71; PULSE 66; RESP 16; TEMP 36.3; BMI 28.0
--- NOTE | 2019-08-19 10:13 | PCM.WC.PN ---
(1) Decubitus ulcer of foot, stage 2 Status: Acute Current Visit: Yes Qualifiers: Laterality: right Code(s): L89.892 - Pressure ulcer of other site, stage 2 (2) Type 1 diabetes mellitus Status: Chronic Current Visit: Yes Qualifiers: Diabetes mellitus complication status: with hyperglycemia Qualified Code(s): E10.65 - Type 1 diabetes mellitus with hyperglycemia Code(s): E10.9 - Type 1 diabetes mellitus without complications Comment: Dx : age 14 (3) Decubitus ulcer of foot, stage 2 Status: Acute Current Visit: Yes Qualifiers: Laterality: left Qualified Code(s): L89.892 - Pressure ulcer of other site, stage 2 Code(s): L89.892 - Pressure ulcer of other site, stage 2 (4) Decubitus ulcer of foot, stage 2 Status: Acute Current Visit: Yes Code(s): L89.892 - Pressure ulcer of other site, stage 2 (5) Diabetic foot ulcer associated with diabetes mellitus due to underlying condition Status: Acute Current Visit: Yes Qualifiers: Diabetic foot ulcer location: midfoot Code(s): E08.621 - Diabetes mellitus due to underlying condition with foot ulcer; L97.509 - Non-pressure chronic ulcer of other part of unspecified foot with unspecified severity Type of Wound Date of Service: 08/19/19 Chief Complaint: Follow up bilateral open ulcers bilateral dorsal feet. History of Wound: 58-year-old white male with diabetes not well controlled was wearing crocs and a latter working and sweating 1 week ago. He later noted 2 blisters had formed on the top of his feet from rubbing. He burst the blisters open and started using topical antibiotics. Did see his family doctor and was put on oral antibiotics and told to follow-up in the wound center for debridement. Progress of Wound: Today bilateral dorsal foot ulcers are healing well much smaller in size. They are responding well to the antibiotic therapy he was added and metronidazole this last week for the cocci that were found in the wounds to. We will electronic data interchange specialist to Aquacel extra and Adaptic. - Physical Exam Vital Signs Temp Pulse Resp BP 97.3 F L 66 16 190/71 H 08/19/19 09:33 08/19/19 09:33 08/19/19 09:33 08/19/19 09:33 General: Oriented x3, Cooperative, Well developed HEENT: Atraumatic, PERRLA Oral: Moist Mucosa Neck: Supple, No JVD Lungs: Clear to auscultation, Normal air movement Cardiovascular: Regular rate, Regular Rhythm Abdomen: Bowel Sounds Present, Soft, Non Tender, No Hepato-splenomegaly Extremities: No clubbing, No edema Skin: Ulcer/ Wound - Bilateral dorsal ulcers from pressure blisters that opened Wound Measurements and Assessment WC - Nurse 1 - General Ulcer Measurement Start: 08/12/19 09:05 Freq: Status: Active Protocol: Activity Type Activity Date Activity User E-Sign Co-Sign Detail Recorded Client Recorded Date Recorded By Document 08/19/19 09:33 [facility] [id number] 08/19/19 09:40 BM 08/19/19 09:33 Wound Center Nurse 1 [Ulcer Assessment] #2- L DORSAL FOOT -Combined with other wound No -Current Size (cm) - Length 1.3 -Current Size (cm) - Width 2.3 -Current Size (cm) - Depth 0.2 -Total Square Cm 2.99 -Photo Taken No -Epithelialization None Present -Tunneling No -Undermining/Tunneling No -Circular Undermining No -Exudate Amt Small -Exudate Type Serosanguineous -Wound Margin Distinct, Outline Attached -Granulation Amt None Present (0 %) -Slough/Fibrin Yes -Necrosis Amt Large (67-100%) -Necrotic Tissue Type Adherent Slough -Texture (Grace-wound Skin Appearance) Assessed, Scarring -Moisture (Grace-wound Skin Appearance Assessed ) -Color (Grace-wound Skin Appearance) Assessed, Erythema -Temperature (Grace-wound Skin No Abnormality Appearance) (Pt Warm) -Tenderness on Palpation (Grace-wound Yes Skin Appearance) -Ulcer Cleansing Rinsed/ Irrigated with Saline -Foul Odor after Cleansing No -Anesthetic Used 5% Lidocaine Gel #1- R DORSAL FOOT -Combined with other wound No -Current Size (cm) - Length 0.9 -Current Size (cm) - Width 1.5 -Current Size (cm) - Depth 0.2 -Total Square Cm 1.35 -Photo Taken No -Epithelialization None Present -Tunneling No -Undermining/Tunneling No -Circular Undermining No -Exudate Amt Small -Exudate Type Serosanguineous -Wound Margin Distinct, Outline Attached -Granulation Amt None Present (0 %) -Slough/Fibrin Yes -Necrosis Amt Large (67-100%) -Necrotic Tissue Type Adherent Slough -Texture (Grace-wound Skin Appearance) Assessed, Scarring -Moisture (Grace-wound Skin Appearance Assessed ) -Color (Grace-wound Skin Appearance) Assessed, Erythema -Temperature (Grace-wound Skin No Abnormality Appearance) (Pt Warm) -Tenderness on Palpation (Grace-wound Yes Skin Appearance) -Ulcer Cleansing Rinsed/ Irrigated with Saline -Foul Odor after Cleansing No -Anesthetic Used 5% Lidocaine Gel WC - Nurse 2 - General Ulcer CM Notes Start: 08/12/19 09:05 Freq: Status: Active Protocol: Activity Type Activity Date Activity User E-Sign Co-Sign Detail Recorded Client Recorded Date Recorded By Document 08/19/19 09:59 MW [id number] 08/19/19 10:04 MW 08/19/19 09:59 Wound Center Nurse 2 [Procedure/Treatment] #2- L DORSAL FOOT -Time 09:59 -Correct Patient Yes -Correct Side, Site, Position Yes -Correct Procedure Yes -Procedure Performed Yes -Type of Procedure Debridement -Clinical Debridement Subcutaneous -Post Debridement Size (cm) - Length 1.3 -Post Debridement Size (cm) - Width 2.1 -Post Debridement Size (cm) - Depth 0.2 -Total Square Cm 2.73 -Wound/Ulcer Outcome Not Healed -Ulcer Cleansing Rinsed/ Irrigated with Saline -Foul Odor after Cleansing No -Bioengineered Tissue No -Bleeding Controlled with Pressure -Offloading No -Treatment Response Procedure Tolerated Well #1- R DORSAL FOOT -Time 10:00 -Correct Patient Yes -Correct Side, Site, Position Yes -Correct Procedure Yes -Procedure Performed Yes -Type of Procedure Debridement -Clinical Debridement Subcutaneous -Post Debridement Size (cm) - Length 0.8 -Post Debridement Size (cm) - Width 1.6 -Post Debridement Size (cm) - Depth 0.2 -Total Square Cm 1.28 -Wound/Ulcer Outcome Not Healed -Ulcer Cleansing Rinsed/ Irrigated with Saline -Foul Odor after Cleansing No -Bioengineered Tissue No -Bleeding Controlled with Pressure -Offloading No -Treatment Response Procedure Tolerated Well [See Physician Procedure note for Specifics] Pain Scale: 0-10 Numeric [Pain] -Is Patient Pain Free? Yes Musculoskeletal: No Tenderness to Palpation of Joints or Extremities Lymphatic: No Cervical, Supraclavicular, or Inguinal Adenopathy Neurological: Cranial nerves II-XII grossly intact, Neuro grossly intact Psych/Mental Status: Normal Affect, Appropriate Debridement Note Post-Debridement Measurements/Treatment WC - Nurse 2 - General Ulcer CM Notes Start: 08/12/19 09:05 Freq: Status: Active Protocol: Activity Type Activity Date Activity User E-Sign Co-Sign Detail Recorded Client Recorded Date Recorded By Document 08/12/19 09:51 MW [id number] 08/12/19 10:03 MW Document 08/19/19 09:59 MW [id number] 08/19/19 10:04 MW 08/12/19 08/19/19 09:51 09:59 Wound Center Nurse 2 #2- L DORSAL FOOT -Time 09:52 09:59 -Correct Patient Yes Yes -Correct Side, Site, Position Yes Yes -Correct Procedure Yes Yes -Procedure Performed Yes Yes -Type of Procedure Debridement Debridement -Clinical Debridement Subcutaneous Subcutaneous -Post Debridement Size (cm) - Length 1.5 1.3 -Post Debridement Size (cm) - Width 2.5 2.1 -Post Debridement Size (cm) - Depth 0.2 0.2 -Total Square Cm 3.75 2.73 -Wound/Ulcer Outcome Not Healed Not Healed -Ulcer Cleansing Rinsed/ Rinsed/ Irrigated with Irrigated with Saline Saline -Foul Odor after Cleansing No No -Bioengineered Tissue No No -Bleeding Controlled with Pressure Pressure -Offloading No No -Treatment Response Procedure Procedure Tolerated Well Tolerated Well #1- R DORSAL FOOT -Time 09:52 10:00 -Correct Patient Yes Yes -Correct Side, Site, Position Yes Yes -Correct Procedure Yes Yes -Procedure Performed Yes Yes -Type of Procedure Debridement Debridement -Clinical Debridement Subcutaneous Subcutaneous -Post Debridement Size (cm) - Length 1.0 0.8 -Post Debridement Size (cm) - Width 2.0 1.6 -Post Debridement Size (cm) - Depth 0.1 0.2 -Total Square Cm 2.00 1.28 -Wound/Ulcer Outcome Not Healed Not Healed -Ulcer Cleansing Rinsed/ Rinsed/ Irrigated with Irrigated with Saline Saline -Foul Odor after Cleansing No No -Bioengineered Tissue No No -Bleeding Controlled with Pressure Pressure -Offloading No No -Treatment Response Procedure Procedure Tolerated Well Tolerated Well Pain Scale: 0-10 Numeric Is Patient Pain Free? Yes Yes Wound debrided: Right dorsal foot Wound Grade/Stage: H2 Type of Debridement: Excisional debridement Anesthesia Used: 5% Lidocaine Gel Depth: Down to and including healthy tissue Percentage of wound debrided: 100 Instrument Used: 5mm curette Tissue Removed: Fibrin and some devitalized tissue and slough Severity: Limited To Skin Breakdown Amount of bleeding with debridement: Mild Bleeding Controlled with: Compression and gauze Patient tolerated procedure well - Additional Wound Wound debrided: Left dorsal foot ulcer Wound Grade/Stage: Stage II Depth: Down to and including healthy tissue, in the subcutaneous layer Percentage of wound debrided: 100 Instrument Used: 5mm curette Tissue Removed: Slough fibrin devitalized tissue Severity: Limited To Skin Breakdown Amount of bleeding with debridement: Mild Bleeding Controlled with: Compression and gauze Patient tolerated procedure: Patient tolerated procedure well Assessment/Plan Active Problems (Last Reviewed 08/18/19 @ 08:[address] Jorje Carroll MD) Decubitus ulcer of foot, stage 2 (Acute) Decubitus ulcer of foot, stage 2 (Acute) Decubitus ulcer of foot, stage 2 (Acute) Diabetic foot ulcer associated with diabetes mellitus due to underlying condition (Acute) Type 1 diabetes mellitus (Chronic) Dx : age 14 Assessment: Diabetic foot ulcers bilateral dorsal feet. Infected wounds. Diabetes type 1 uncontrolled Plan: Wash feet with antibacterial soap. Apply Aquacel extra to wound base moistened cover with Adaptic gauze and tape every day. Follow up 1 week
[2019-08-26 11:05] VITALS: BP 146/74; RESP 18; TEMP 36.4; BMI 28.0
--- NOTE | 2019-08-26 12:06 | PCM.WC.PN ---
(1) Decubitus ulcer of foot, stage 2 Status: Acute Current Visit: Yes Qualifiers: Laterality: right Code(s): L89.892 - Pressure ulcer of other site, stage 2 (2) Type 1 diabetes mellitus Status: Chronic Current Visit: Yes Qualifiers: Diabetes mellitus complication status: with hyperglycemia Qualified Code(s): E10.65 - Type 1 diabetes mellitus with hyperglycemia Code(s): E10.9 - Type 1 diabetes mellitus without complications Comment: Dx : age 14 (3) Decubitus ulcer of foot, stage 2 Status: Acute Current Visit: Yes Qualifiers: Laterality: left Qualified Code(s): L89.892 - Pressure ulcer of other site, stage 2 Code(s): L89.892 - Pressure ulcer of other site, stage 2 (4) Decubitus ulcer of foot, stage 2 Status: Acute Current Visit: Yes Code(s): L89.892 - Pressure ulcer of other site, stage 2 (5) Diabetic foot ulcer associated with diabetes mellitus due to underlying condition Status: Acute Current Visit: Yes Qualifiers: Diabetic foot ulcer location: midfoot Code(s): E08.621 - Diabetes mellitus due to underlying condition with foot ulcer; L97.509 - Non-pressure chronic ulcer of other part of unspecified foot with unspecified severity Type of Wound Date of Service: 08/26/19 Chief Complaint: Follow up bilateral open ulcers bilateral dorsal feet. History of Wound: 58-year-old white male with diabetes not well controlled was wearing crocs and a latter working and sweating 1 week ago. He later noted 2 blisters had formed on the top of his feet from rubbing. He burst the blisters open and started using topical antibiotics. Did see his family doctor and was put on oral antibiotics and told to follow-up in the wound center for debridement. Progress of Wound: Today bilateral dorsal foot ulcers are healing well much smaller in size. They are responding well to the antibiotic therapy he was added and metronidazole this last week for the cocci that were found in the wounds to. Patient was confused and has not started the metronidazole but will start today. Noticing some maceration around the wounds will stop the Adaptic use. We will continue to use Aquacel extra . - Physical Exam Vital Signs Temp Pulse Resp BP 97.6 F L 66 18 146/74 H 08/26/19 11:05 08/19/19 09:33 08/26/19 11:05 08/26/19 11:05 General: Oriented x3, Cooperative, Well developed HEENT: Atraumatic, PERRLA Oral: Moist Mucosa Neck: Supple, No JVD Lungs: Clear to auscultation, Normal air movement Cardiovascular: Regular rate, Regular Rhythm Abdomen: Bowel Sounds Present, Soft, Non Tender, No Hepato-splenomegaly Extremities: No clubbing, No edema Skin: Ulcer/ Wound - Bilateral dorsal foot ulcers from shoes improperly fitting shoes Wound Measurements and Assessment WC - Nurse 1 - General Ulcer Measurement Start: 08/12/19 09:05 Freq: Status: Active Protocol: Activity Type Activity Date Activity User E-Sign Co-Sign Detail Recorded Client Recorded Date Recorded By Document 08/26/19 11:05 [id number] 08/26/19 11:10 BS 08/26/19 11:05 Wound Center Nurse 1 [Ulcer Assessment] #2- L DORSAL FOOT -Combined with other wound No -Current Size (cm) - Length 1.2 -Current Size (cm) - Width 2.0 -Current Size (cm) - Depth 0.1 -Total Square Cm 2.40 -Moisture (Grace-wound Skin Appearance Assessed, ) Maceration -Temperature (Grace-wound Skin No Abnormality Appearance) (Pt Warm) -Tenderness on Palpation (Grace-wound No Skin Appearance) -Ulcer Cleansing Rinsed/ Irrigated with Saline -Foul Odor after Cleansing No -Anesthetic Used 4% Lidocaine Solution #1- R DORSAL FOOT -Combined with other wound No -Current Size (cm) - Length 0.9 -Current Size (cm) - Width 1.4 -Current Size (cm) - Depth 0.2 -Total Square Cm 1.26 -Moisture (Grace-wound Skin Appearance Assessed, ) Maceration -Temperature (Grace-wound Skin No Abnormality Appearance) (Pt Warm) -Tenderness on Palpation (Grace-wound No Skin Appearance) -Ulcer Cleansing Rinsed/ Irrigated with Saline -Foul Odor after Cleansing No -Anesthetic Used 4% Lidocaine Solution Musculoskeletal: No Tenderness to Palpation of Joints or Extremities Lymphatic: No Cervical, Supraclavicular, or Inguinal Adenopathy Neurological: Cranial nerves II-XII grossly intact, Neuro grossly intact Psych/Mental Status: Normal Affect, Appropriate, Alert and oriented to time, place, person, mood and affect Debridement Note Post-Debridement Measurements/Treatment WC - Nurse 2 - General Ulcer CM Notes Start: 08/12/19 09:05 Freq: Status: Active Protocol: Activity Type Activity Date Activity User E-Sign Co-Sign Detail Recorded Client Recorded Date Recorded By Document 08/12/19 09:51 MW [id number] 08/12/19 10:03 MW Document 08/19/19 09:59 MW [id number] 08/19/19 10:04 MW 08/12/19 08/19/19 09:51 09:59 Wound Center Nurse 2 #2- L DORSAL FOOT -Time 09:52 09:59 -Correct Patient Yes Yes -Correct Side, Site, Position Yes Yes -Correct Procedure Yes Yes -Procedure Performed Yes Yes -Type of Procedure Debridement Debridement -Clinical Debridement Subcutaneous Subcutaneous -Post Debridement Size (cm) - Length 1.5 1.3 -Post Debridement Size (cm) - Width 2.5 2.1 -Post Debridement Size (cm) - Depth 0.2 0.2 -Total Square Cm 3.75 2.73 -Wound/Ulcer Outcome Not Healed Not Healed -Ulcer Cleansing Rinsed/ Rinsed/ Irrigated with Irrigated with Saline Saline -Foul Odor after Cleansing No No -Bioengineered Tissue No No -Bleeding Controlled with Pressure Pressure -Offloading No No -Treatment Response Procedure Procedure Tolerated Well Tolerated Well #1- R DORSAL FOOT -Time 09:52 10:00 -Correct Patient Yes Yes -Correct Side, Site, Position Yes Yes -Correct Procedure Yes Yes -Procedure Performed Yes Yes -Type of Procedure Debridement Debridement -Clinical Debridement Subcutaneous Subcutaneous -Post Debridement Size (cm) - Length 1.0 0.8 -Post Debridement Size (cm) - Width 2.0 1.6 -Post Debridement Size (cm) - Depth 0.1 0.2 -Total Square Cm 2.00 1.28 -Wound/Ulcer Outcome Not Healed Not Healed -Ulcer Cleansing Rinsed/ Rinsed/ Irrigated with Irrigated with Saline Saline -Foul Odor after Cleansing No No -Bioengineered Tissue No No -Bleeding Controlled with Pressure Pressure -Offloading No No -Treatment Response Procedure Procedure Tolerated Well Tolerated Well Pain Scale: 0-10 Numeric Is Patient Pain Free? Yes Yes Wound debrided: Right dorsal foot Wound Grade/Stage: Stage II Type of Debridement: Excisional debridement Anesthesia Used: 5% Lidocaine Gel Depth: Down to and including healthy tissue, in the subcutaneous layer Percentage of wound debrided: 100 Instrument Used: 5mm curette Tissue Removed: Devitalized tissue and fibrin Severity: Limited To Skin Breakdown Amount of bleeding with debridement: None Bleeding Controlled with: Compression and gauze Patient tolerated procedure well - Additional Wound Wound debrided: Left dorsal foot Wound Grade/Stage: Stage II Type of Debridement: Excisional debridement Anesthesia Used: 5% Lidocaine Gel Depth: Down to and including healthy tissue, in the subcutaneous layer Percentage of wound debrided: 100 Instrument Used: 5mm curette Tissue Removed: Fibrin and devitalized tissue Severity: Limited To Skin Breakdown Amount of bleeding with debridement: None Bleeding Controlled with: Pressure Patient tolerated procedure: Patient tolerated procedure well Assessment/Plan Active Problems (Last Reviewed 08/18/19 @ 08:[address] Jorje Carroll MD) Decubitus ulcer of foot, stage 2 (Acute) Decubitus ulcer of foot, stage 2 (Acute) Decubitus ulcer of foot, stage 2 (Acute) Diabetic foot ulcer associated with diabetes mellitus due to underlying condition (Acute) Type 1 diabetes mellitus (Chronic) Dx : age 14 Assessment: Diabetic foot ulcers bilateral dorsal feet. Infected wounds. Diabetes type 1 uncontrolled Plan: Wash feet with antibacterial soap. Apply Aquacel extra to wound base moistened cover with Adaptic gauze and tape every day. Start taking the metronidazole 3 times a day for 14 days. Follow up 1 week
== END 2019-09-01 23:59 ==
LOC: WC 10:45
PROVIDERS: PCP Internal Medicine; Referring Provider Nurse Practitioner; Visit Provider Nurse Practitioner
DX: E10.621 Type 1 diabetes mellitus with foot ulcer (principal); L89.892 Pressure ulcer of other site, stage 2; E10.65 Type 1 diabetes mellitus with hyperglycemia; N40.0 Benign prostatic hyperplasia without lower urinary tract symptoms; E78.5 Hyperlipidemia, unspecified; G47.30 Sleep apnea, unspecified; I10 Essential (primary) hypertension; E03.9 Hypothyroidism, unspecified; Z79.899 Other long term (current) drug therapy; Z79.4 Long term (current) use of insulin; Z87.891 Personal history of nicotine dependence
CPT/HCPCS: 11042; 87070; 87075; 87077; 87186; 87205; 99213; G0463

== ENCOUNTER 2019-09-23 08:30 | Outpatient (RCR) | payer MEDICARE, SELFPAY ==
[2019-09-02 00:36] VITALS: BP 146/74; PULSE 66; RESP 18; TEMP 36.4
[2019-09-02 09:59] VITALS: BP 156/54; PULSE 59; RESP 18; TEMP 36.6; BMI 28.0
--- NOTE | 2019-09-02 10:58 | PCM.WC.PN ---
(1) Decubitus ulcer of foot, stage 2 Status: Acute Current Visit: Yes Code(s): L89.892 - Pressure ulcer of other site, stage 2 (2) Diabetic foot ulcer associated with diabetes mellitus due to underlying condition Status: Acute Current Visit: Yes Code(s): E08.621 - Diabetes mellitus due to underlying condition with foot ulcer; L97.509 - Non-pressure chronic ulcer of other part of unspecified foot with unspecified severity Type of Wound Date of Service: 09/02/19 Chief Complaint: Follow up bilateral open ulcers bilateral dorsal feet. History of Wound: 58-year-old white male with diabetes not well controlled was wearing crocs and a latter working and sweating 1 week ago. He later noted 2 blisters had formed on the top of his feet from rubbing. He burst the blisters open and started using topical antibiotics. Did see his family doctor and was put on oral antibiotics and told to follow-up in the wound center for debridement. Progress of Wound: Today bilateral dorsal foot ulcers are healing well much smaller in size. They are responding well to the antibiotic therapy he was added and metronidazole this last week for the cocci that were found in the wounds to. We will continue to use Aquacel extra . Will apply for epi-fix to finish the wounds off for healing - Physical Exam Vital Signs Temp Pulse Resp BP 97.8 F 59 L 18 156/54 H 09/02/19 09:59 09/02/19 09:59 09/02/19 09:59 09/02/19 09:59 General: Oriented x3, Cooperative, Well developed HEENT: Atraumatic, PERRLA Oral: Moist Mucosa Neck: Supple, No JVD Lungs: Clear to auscultation, Normal air movement Cardiovascular: Regular rate, Regular Rhythm Abdomen: Bowel Sounds Present, Soft, Non Tender, No Hepato-splenomegaly Extremities: No clubbing, No edema Skin: Ulcer/ Wound - Dorsal open ulcers from blisters Wound Measurements and Assessment WC - Nurse 1 - General Ulcer Measurement Start: 09/02/19 09:58 Freq: Status: Active Protocol: Activity Type Activity Date Activity User E-Sign Co-Sign Detail Recorded Client Recorded Date Recorded By Document 09/02/19 09:59 PL [id number] 09/02/19 10:06 PL 09/02/19 09:59 Wound Center Nurse 1 [Ulcer Assessment] #2- L DORSAL FOOT -Combined with other wound No -Current Size (cm) - Length 0.8 -Current Size (cm) - Width 1.8 -Current Size (cm) - Depth 0.2 -Total Square Cm 1.44 -Photo Taken No -Epithelialization None Present -Undermining/Tunneling No -Circular Undermining No -Exudate Amt Small -Exudate Type Serosanguineous -Granulation Amt None Present (0 %) -Slough/Fibrin Yes -Necrosis Amt Large (67-100%) -Necrotic Tissue Type Adherent Slough -Texture (Grace-wound Skin Appearance) No Abnormality -Moisture (Grace-wound Skin Appearance No Abnormality ) -Color (Garce-wound Skin Appearance) No Abnormality -Temperature (Grace-wound Skin No Abnormality Appearance) (Pt Warm) -Tenderness on Palpation (Grace-wound No Skin Appearance) -Ulcer Cleansing Rinsed/ Irrigated with Saline -Anesthetic Used 4% Lidocaine Solution #1- R DORSAL FOOT -Combined with other wound No -Current Size (cm) - Length 0.5 -Current Size (cm) - Width 0.8 -Current Size (cm) - Depth 0.2 -Total Square Cm 0.40 -Photo Taken No -Epithelialization None Present -Tunneling No -Undermining/Tunneling No -Exudate Amt Small -Exudate Type Serosanguineous -Granulation Amt None Present (0 %) -Slough/Fibrin Yes -Necrosis Amt Large (67-100%) -Necrotic Tissue Type Adherent Slough -Texture (Grace-wound Skin Appearance) No Abnormality -Moisture (Grace-wound Skin Appearance No Abnormality ) -Color (Grace-wound Skin Appearance) No Abnormality -Temperature (Grcae-wound Skin No Abnormality Appearance) (Pt Warm) -Tenderness on Palpation (Grace-wound No Skin Appearance) -Ulcer Cleansing Rinsed/ Irrigated with Saline -Anesthetic Used 4% Lidocaine Solution WC - Nurse 2 - General Ulcer CM Notes Start: 09/02/19 09:58 Freq: Status: Active Protocol: Activity Type Activity Date Activity User E-Sign Co-Sign Detail Recorded Client Recorded Date Recorded By Document 09/02/19 10:19 MW [id number] 09/02/19 10:25 MW 09/02/19 10:19 Wound Center Nurse 2 [Procedure/Treatment] #2- L DORSAL FOOT -Time 10:20 -Correct Patient Yes -Correct Side, Site, Position Yes -Correct Procedure Yes -Procedure Performed Yes -Type of Procedure Debridement -Clinical Debridement Subcutaneous -Post Debridement Size (cm) - Length 0.9 -Post Debridement Size (cm) - Width 1.7 -Post Debridement Size (cm) - Depth 0.2 -Total Square Cm 1.53 -Wound/Ulcer Outcome Not Healed -Ulcer Cleansing Rinsed/ Irrigated with Saline -Foul Odor after Cleansing No -Bioengineered Tissue No -Bleeding Controlled with Pressure -Offloading No -Treatment Response Procedure Tolerated Well #1- R DORSAL FOOT -Time 10:20 -Correct Patient Yes -Correct Side, Site, Position Yes -Correct Procedure Yes -Procedure Performed Yes -Type of Procedure Debridement -Clinical Debridement Subcutaneous -Post Debridement Size (cm) - Length 0.5 -Post Debridement Size (cm) - Width 1.0 -Post Debridement Size (cm) - Depth 0.2 -Total Square Cm 0.50 -Wound/Ulcer Outcome Not Healed -Ulcer Cleansing Rinsed/ Irrigated with Saline -Foul Odor after Cleansing No -Bioengineered Tissue No -Bleeding Controlled with Pressure -Offloading No -Treatment Response Procedure Tolerated Well [See Physician Procedure note for Specifics] Pain Scale: 0-10 Numeric [Pain] -Is Patient Pain Free? Yes Musculoskeletal: No Tenderness to Palpation of Joints or Extremities Lymphatic: No Cervical, Supraclavicular, or Inguinal Adenopathy Neurological: Cranial nerves II-XII grossly intact, Neuro grossly intact Psych/Mental Status: Normal Affect, Appropriate Debridement Note Post-Debridement Measurements/Treatment WC - Nurse 2 - General Ulcer CM Notes Start: 09/02/19 09:58 Freq: Status: Active Protocol: Activity Type Activity Date Activity User E-Sign Co-Sign Detail Recorded Client Recorded Date Recorded By Document 09/02/19 10:19 MW [id number] 09/02/19 10:25 MW 09/02/19 10:19 Wound Center Nurse 2 #2- L DORSAL FOOT -Time 10:20 -Correct Patient Yes -Correct Side, Site, Position Yes -Correct Procedure Yes -Procedure Performed Yes -Type of Procedure Debridement -Clinical Debridement Subcutaneous -Post Debridement Size (cm) - Length 0.9 -Post Debridement Size (cm) - Width 1.7 -Post Debridement Size (cm) - Depth 0.2 -Total Square Cm 1.53 -Wound/Ulcer Outcome Not Healed -Ulcer Cleansing Rinsed/ Irrigated with Saline -Foul Odor after Cleansing No -Bioengineered Tissue No -Bleeding Controlled with Pressure -Offloading No -Treatment Response Procedure Tolerated Well #1- R DORSAL FOOT -Time 10:20 -Correct Patient Yes -Correct Side, Site, Position Yes -Correct Procedure Yes -Procedure Performed Yes -Type of Procedure Debridement -Clinical Debridement Subcutaneous -Post Debridement Size (cm) - Length 0.5 -Post Debridement Size (cm) - Width 1.0 -Post Debridement Size (cm) - Depth 0.2 -Total Square Cm 0.50 -Wound/Ulcer Outcome Not Healed -Ulcer Cleansing Rinsed/ Irrigated with Saline -Foul Odor after Cleansing No -Bioengineered Tissue No -Bleeding Controlled with Pressure -Offloading No -Treatment Response Procedure Tolerated Well Pain Scale: 0-10 Numeric Is Patient Pain Free? Yes Wound debrided: Right dorsal foot Wound Grade/Stage: Stage 2 Type of Debridement: Excisional debridement Anesthesia Used: 5% Lidocaine Gel Depth: Down to and including healthy tissue, in the subcutaneous layer Percentage of wound debrided: 100 Instrument Used: 5mm curette Tissue Removed: Slough and fibrin Amount of bleeding with debridement: None Bleeding Controlled with: Pressure Patient tolerated procedure well - Additional Wound Wound debrided: Left dorsal foot ulcer Wound Grade/Stage: Stage II Anesthesia Used: 5% Lidocaine Gel Depth: Down to and including healthy tissue, in the subcutaneous layer Percentage of wound debrided: 100 Instrument Used: 5mm curette Tissue Removed: Fibrin and slough Severity: Limited To Skin Breakdown Amount of bleeding with debridement: Mild Bleeding Controlled with: Compression and gauze Patient tolerated procedure: Patient tolerated procedure well Assessment/Plan Active Problems (Last Reviewed 08/18/19 @ 08:[address] Jorje Carroll MD) Decubitus ulcer of foot, stage 2 (Acute) Diabetic foot ulcer associated with diabetes mellitus due to underlying condition (Acute) Assessment: Diabetic foot ulcers bilateral dorsal feet. Infected wounds. Diabetes type 1 uncontrolled Plan: Wash feet with antibacterial soap. Apply Aquacel extra to wound base moistened cover with Adaptic gauze and tape every day. Finish the metronidazole 3 times a day for 14 days. Follow up 1 week
[2019-09-09 10:03] VITALS: BP 136/60; PULSE 59; RESP 14; TEMP 36.6; BMI 28.0
--- NOTE | 2019-09-09 10:34 | PCM.WC.PN ---
(1) Decubitus ulcer of foot, stage 2 Status: Acute Current Visit: Yes Code(s): L89.892 - Pressure ulcer of other site, stage 2 (2) Diabetic foot ulcer associated with diabetes mellitus due to underlying condition Status: Acute Current Visit: Yes Code(s): E08.621 - Diabetes mellitus due to underlying condition with foot ulcer; L97.509 - Non-pressure chronic ulcer of other part of unspecified foot with unspecified severity Type of Wound Date of Service: 09/09/19 Chief Complaint: Follow up bilateral open ulcers bilateral dorsal feet. History of Wound: 58-year-old white male with diabetes not well controlled was wearing crocs and a latter working and sweating 1 week ago. He later noted 2 blisters had formed on the top of his feet from rubbing. He burst the blisters open and started using topical antibiotics. Did see his family doctor and was put on oral antibiotics and told to follow-up in the wound center for debridement. Progress of Wound: Today bilateral dorsal foot ulcers are healing well . Patient was approved for epi-fix but his [id number] is high he is going to check with insurance company and see if this is true. They are responding well to the antibiotic therapy he was added and metronidazole this last week for the cocci that were found in the wounds to. We will change to Promogran to wound base. - Physical Exam Vital Signs Temp Pulse Resp BP 97.9 F 59 L 14 136/60 H 09/09/19 10:03 09/09/19 10:03 09/09/19 10:03 09/09/19 10:03 General: Oriented x3, Cooperative, Well developed HEENT: Atraumatic, PERRLA Oral: Moist Mucosa Neck: Supple, No JVD Lungs: Clear to auscultation, Normal air movement Cardiovascular: Regular rate, Regular Rhythm Abdomen: Bowel Sounds Present, Soft, Non Tender, No Hepato-splenomegaly Extremities: No clubbing, No edema Skin: Ulcer/ Wound - Bilateral dorsal foot ulcers Wound Measurements and Assessment WC - Nurse 1 - General Ulcer Measurement Start: 09/02/19 09:58 Freq: Status: Active Protocol: Activity Type Activity Date Activity User E-Sign Co-Sign Detail Recorded Client Recorded Date Recorded By Document 09/09/19 10:03 [id number] 09/09/19 10:12 09/09/19 10:03 Wound Center Nurse 1 [Ulcer Assessment] #2- L DORSAL FOOT -Combined with other wound No -Current Size (cm) - Length 1.1 -Current Size (cm) - Width 0.6 -Current Size (cm) - Depth 0.2 -Total Square Cm 0.66 -Photo Taken No -Epithelialization Small 1-33% -Tunneling No -Undermining/Tunneling No -Circular Undermining No -Exudate Amt Small -Exudate Type Serosanguineous -Wound Margin Distinct, Outline Attached -Granulation Amt Large (67-100%) -Granulation Quality Pale,Mather -Slough/Fibrin Yes -Necrosis Amt None Present (0 %) -Necrotic Tissue Type Adherent Slough -Structure Exposed N/A -Texture (Grace-wound Skin Appearance) Scarring -Moisture (Grace-wound Skin Appearance Maceration ) -Color (Grace-wound Skin Appearance) No Abnormality, Assessed -Temperature (Grace-wound Skin No Abnormality Appearance) (Pt Warm) -Tenderness on Palpation (Grace-wound No Skin Appearance) -Ulcer Cleansing Rinsed/ Irrigated with Saline -Foul Odor after Cleansing No -Anesthetic Used 4% Lidocaine Solution #1- R DORSAL FOOT -Combined with other wound No -Current Size (cm) - Length 0.8 -Current Size (cm) - Width 1.1 -Current Size (cm) - Depth 0.2 -Total Square Cm 0.88 -Photo Taken No -Epithelialization Small 1-33% -Tunneling No -Undermining/Tunneling No -Circular Undermining No -Exudate Amt Small -Exudate Type Serosanguineous -Wound Margin Distinct, Outline Attached -Granulation Amt Large (67-100%) -Granulation Quality Pale,Mather -Slough/Fibrin Yes -Necrosis Amt None Present (0 %) -Necrotic Tissue Type Adherent Slough -Structure Exposed N/A -Texture (Grace-wound Skin Appearance) Scarring -Moisture (Grace-wound Skin Appearance Maceration ) -Color (Grace-wound Skin Appearance) No Abnormality, Assessed -Temperature (Grcae-wound Skin No Abnormality Appearance) (Pt Warm) -Tenderness on Palpation (Grace-wound No Skin Appearance) -Ulcer Cleansing Rinsed/ Irrigated with Saline -Foul Odor after Cleansing No -Anesthetic Used 4% Lidocaine Solution [Edema Assessment] -Lower Limb Edema Present NA WC - Nurse 2 - General Ulcer CM Notes Start: 09/02/19 09:58 Freq: Status: Active Protocol: Activity Type Activity Date Activity User E-Sign Co-Sign Detail Recorded Client Recorded Date Recorded By Document 09/09/19 10:24 MW [id number] 09/09/19 10:27 MW 09/09/19 10:24 Wound Center Nurse 2 [Procedure/Treatment] #2- L DORSAL FOOT -Time 10:24 -Correct Patient Yes -Correct Side, Site, Position Yes -Correct Procedure Yes -Procedure Performed Yes -Type of Procedure Debridement -Clinical Debridement Subcutaneous -Post Debridement Size (cm) - Length 1.0 -Post Debridement Size (cm) - Width 1.8 -Post Debridement Size (cm) - Depth 0.2 -Total Square Cm 1.80 -Wound/Ulcer Outcome Not Healed -Ulcer Cleansing Rinsed/ Irrigated with Saline -Foul Odor after Cleansing No -Bioengineered Tissue No -Bleeding Controlled with Pressure -Offloading No -Treatment Response Procedure Tolerated Well #1- R DORSAL FOOT -Time 10:24 -Correct Patient Yes -Correct Side, Site, Position Yes -Correct Procedure Yes -Procedure Performed Yes -Type of Procedure Debridement -Clinical Debridement Subcutaneous -Post Debridement Size (cm) - Length 0.8 -Post Debridement Size (cm) - Width 1.2 -Post Debridement Size (cm) - Depth 0.2 -Total Square Cm 0.96 -Wound/Ulcer Outcome Not Healed -Ulcer Cleansing Rinsed/ Irrigated with Saline -Foul Odor after Cleansing No -Bioengineered Tissue No -Bleeding Controlled with Pressure -Offloading No -Treatment Response Procedure Tolerated Well [See Physician Procedure note for Specifics] Pain Scale: 0-10 Numeric [Pain] -Is Patient Pain Free? Yes Musculoskeletal: No Tenderness to Palpation of Joints or Extremities Lymphatic: No Cervical, Supraclavicular, or Inguinal Adenopathy Neurological: Cranial nerves II-XII grossly intact, Neuro grossly intact Psych/Mental Status: Normal Affect, Appropriate Debridement Note Post-Debridement Measurements/Treatment WC - Nurse 2 - General Ulcer CM Notes Start: 09/02/19 09:58 Freq: Status: Active Protocol: Activity Type Activity Date Activity User E-Sign Co-Sign Detail Recorded Client Recorded Date Recorded By Document 09/02/19 10:19 MW [id number] 09/02/19 10:25 MW Document 09/09/19 10:24 MW [id number] 09/09/19 10:27 MW 09/02/19 09/09/19 10:19 10:24 Wound Center Nurse 2 #2- L DORSAL FOOT -Time 10:20 10:24 -Correct Patient Yes Yes -Correct Side, Site, Position Yes Yes -Correct Procedure Yes Yes -Procedure Performed Yes Yes -Type of Procedure Debridement Debridement -Clinical Debridement Subcutaneous Subcutaneous -Post Debridement Size (cm) - Length 0.9 1.0 -Post Debridement Size (cm) - Width 1.7 1.8 -Post Debridement Size (cm) - Depth 0.2 0.2 -Total Square Cm 1.53 1.80 -Wound/Ulcer Outcome Not Healed Not Healed -Ulcer Cleansing Rinsed/ Rinsed/ Irrigated with Irrigated with Saline Saline -Foul Odor after Cleansing No No -Bioengineered Tissue No No -Bleeding Controlled with Pressure Pressure -Offloading No No -Treatment Response Procedure Procedure Tolerated Well Tolerated Well #1- R DORSAL FOOT -Time 10:20 10:24 -Correct Patient Yes Yes -Correct Side, Site, Position Yes Yes -Correct Procedure Yes Yes -Procedure Performed Yes Yes -Type of Procedure Debridement Debridement -Clinical Debridement Subcutaneous Subcutaneous -Post Debridement Size (cm) - Length 0.5 0.8 -Post Debridement Size (cm) - Width 1.0 1.2 -Post Debridement Size (cm) - Depth 0.2 0.2 -Total Square Cm 0.50 0.96 -Wound/Ulcer Outcome Not Healed Not Healed -Ulcer Cleansing Rinsed/ Rinsed/ Irrigated with Irrigated with Saline Saline -Foul Odor after Cleansing No No -Bioengineered Tissue No No -Bleeding Controlled with Pressure Pressure -Offloading No No -Treatment Response Procedure Procedure Tolerated Well Tolerated Well Pain Scale: 0-10 Numeric Is Patient Pain Free? Yes Yes Wound debrided: Right dorsal foot Type of Debridement: Excisional debridement Anesthesia Used: 5% Lidocaine Gel Depth: Down to and including healthy tissue Instrument Used: 3mm curette Tissue Removed: Fibrin and devitalized tissue Severity: Limited To Skin Breakdown Amount of bleeding with debridement: Mild Bleeding Controlled with: Compression and gauze Patient tolerated procedure well - Additional Wound Wound debrided: Left dorsal foot ulcer Type of Debridement: Excisional debridement Anesthesia Used: 5% Lidocaine Gel Depth: Down to and including healthy tissue, in the subcutaneous layer Percentage of wound debrided: 100 Instrument Used: 3mm curette Tissue Removed: Devitalized tissue Severity: Limited To Skin Breakdown Amount of bleeding with debridement: Mild Bleeding Controlled with: Compression and gauze Patient tolerated procedure: Patient tolerated procedure well Assessment/Plan Active Problems (Last Reviewed 08/18/19 @ 08:[address] Jorje Carroll MD) Decubitus ulcer of foot, stage 2 (Acute) Diabetic foot ulcer associated with diabetes mellitus due to underlying condition (Acute) Assessment: Diabetic foot ulcers bilateral dorsal feet. Infected wounds. Diabetes type 1 uncontrolled Plan: Wash feet with antibacterial soap. Apply Promogran to wound base moistened cover with gauze and tape every day. Finish the metronidazole 3 times a day for 14 days. Check with insurance company about the epi-fix. Follow up 1 week
[2019-09-16 09:02] VITALS: BP 154/75; PULSE 59; RESP 14; TEMP 36.4; BMI 28.0
--- NOTE | 2019-09-16 09:35 | PCM.WC.PN ---
(1) Decubitus ulcer of foot, stage 2 Status: Acute Current Visit: Yes Code(s): L89.892 - Pressure ulcer of other site, stage 2 (2) Diabetic foot ulcer associated with diabetes mellitus due to underlying condition Status: Acute Current Visit: Yes Code(s): E08.621 - Diabetes mellitus due to underlying condition with foot ulcer; L97.509 - Non-pressure chronic ulcer of other part of unspecified foot with unspecified severity Type of Wound Date of Service: 09/16/19 Chief Complaint: Follow up bilateral open ulcers bilateral dorsal feet. History of Wound: 58-year-old white male with diabetes not well controlled was wearing crocs and a latter working and sweating 1 week ago. He later noted 2 blisters had formed on the top of his feet from rubbing. He burst the blisters open and started using topical antibiotics. Did see his family doctor and was put on oral antibiotics and told to follow-up in the wound center for debridement. Progress of Wound: Today bilateral dorsal foot ulcers are healing well .Much smaller and us improving on the promogran well. Patient was approved for epi-fix but his [id number] is high and he prefers not to use it. They are responding well to the antibiotic therapy he was added and metronidazole this last week for the cocci that were found in the wounds to. - Physical Exam Vital Signs Temp Pulse Resp BP 97.6 F L 59 L 14 154/75 H 09/16/19 09:02 09/16/19 09:02 09/16/19 09:02 09/16/19 09:02 General: Oriented x3, Cooperative, Well developed HEENT: Atraumatic, PERRLA Oral: Moist Mucosa Neck: Supple, No JVD Lungs: Clear to auscultation, Normal air movement Cardiovascular: Regular rate, Regular Rhythm Abdomen: Bowel Sounds Present, Soft, Non Tender, No Hepato-splenomegaly Extremities: No clubbing, No edema Skin: Ulcer/ Wound - Bilateral dorsal foot ulcers from blisters from his shoes Wound Measurements and Assessment WC - Nurse 1 - General Ulcer Measurement Start: 09/02/19 09:58 Freq: Status: Active Protocol: Activity Type Activity Date Activity User E-Sign Co-Sign Detail Recorded Client Recorded Date Recorded By Document 09/16/19 09:02 [id number] 09/16/19 09:08 09/16/19 09:02 Wound Center Nurse 1 [Ulcer Assessment] #2- L DORSAL FOOT -Combined with other wound No -Current Size (cm) - Length 1 -Current Size (cm) - Width 1.7 -Current Size (cm) - Depth 0.1 -Total Square Cm 1.7 -Photo Taken No -Epithelialization Small 1-33% -Tunneling No -Undermining/Tunneling No -Circular Undermining No -Exudate Amt Small -Exudate Type Serosanguineous -Wound Margin Distinct, Outline Attached -Granulation Amt Large (67-100%) -Granulation Quality Pale,[place] -Slough/Fibrin Yes -Necrosis Amt None Present (0 %) -Necrotic Tissue Type Adherent Slough -Structure Exposed N/A -Texture (Grace-wound Skin Appearance) Scarring -Moisture (Grace-wound Skin Appearance No Abnormality, ) Assessed -Color (Grace-wound Skin Appearance) No Abnormality, Assessed -Temperature (Grace-wound Skin No Abnormality Appearance) (Pt Warm) -Tenderness on Palpation (Grace-wound No Skin Appearance) -Ulcer Cleansing Rinsed/ Irrigated with Saline -Foul Odor after Cleansing No -Anesthetic Used 4% Lidocaine Solution #1- R DORSAL FOOT -Combined with other wound No -Current Size (cm) - Length 0.4 -Current Size (cm) - Width 0.8 -Current Size (cm) - Depth 0.1 -Total Square Cm 0.32 -Photo Taken No -Epithelialization Small 1-33% -Tunneling No -Undermining/Tunneling No -Circular Undermining No -Exudate Amt Small -Exudate Type Serosanguineous -Wound Margin Distinct, Outline Attached -Granulation Amt Large (67-100%) -Granulation Quality Pale,[place] -Slough/Fibrin Yes -Necrosis Amt None Present (0 %) -Necrotic Tissue Type Adherent Slough -Structure Exposed N/A -Texture (Grace-wound Skin Appearance) Scarring -Moisture (Grace-wound Skin Appearance No Abnormality, ) Assessed -Color (Grace-wound Skin Appearance) No Abnormality, Assessed -Temperature (Grace-wound Skin No Abnormality Appearance) (Pt Warm) -Tenderness on Palpation (Grace-wound No Skin Appearance) -Ulcer Cleansing Rinsed/ Irrigated with Saline -Foul Odor after Cleansing No -Anesthetic Used 4% Lidocaine Solution [Edema Assessment] -Lower Limb Edema Present NA - Nurse 2 - General Ulcer CM Notes Start: 09/02/19 09:58 Freq: Status: Active Protocol: Activity Type Activity Date Activity User E-Sign Co-Sign Detail Recorded Client Recorded Date Recorded By Document 09/16/19 09:26 MW [id number] 09/16/19 09:28 MW 09/16/19 09:26 Wound Center Nurse 2 [Procedure/Treatment] #2- L DORSAL FOOT -Time 09:27 -Correct Patient Yes -Correct Side, Site, Position Yes -Correct Procedure Yes -Procedure Performed Yes -Type of Procedure Debridement -Clinical Debridement Subcutaneous -Post Debridement Size (cm) - Length 0.7 -Post Debridement Size (cm) - Width 1.5 -Post Debridement Size (cm) - Depth 0.2 -Total Square Cm 1.05 -Wound/Ulcer Outcome Not Healed -Ulcer Cleansing Rinsed/ Irrigated with Saline -Foul Odor after Cleansing No -Bioengineered Tissue No -Bleeding Controlled with Pressure -Offloading No -Treatment Response Procedure Tolerated Well #1- R DORSAL FOOT -Time 09:27 -Correct Patient Yes -Correct Side, Site, Position Yes -Correct Procedure Yes -Procedure Performed Yes -Type of Procedure Debridement -Clinical Debridement Subcutaneous -Post Debridement Size (cm) - Length 0.4 -Post Debridement Size (cm) - Width 0.7 -Post Debridement Size (cm) - Depth 0.1 -Total Square Cm 0.28 -Wound/Ulcer Outcome Not Healed -Ulcer Cleansing Rinsed/ Irrigated with Saline -Foul Odor after Cleansing No -Bioengineered Tissue No -Bleeding Controlled with Pressure -Offloading No -Treatment Response Procedure Tolerated Well [See Physician Procedure note for Specifics] Pain Scale: 0-10 Numeric [Pain] -Is Patient Pain Free? Yes Musculoskeletal: No Tenderness to Palpation of Joints or Extremities Lymphatic: No Cervical, Supraclavicular, or Inguinal Adenopathy Neurological: Cranial nerves II-XII grossly intact, Neuro grossly intact Psych/Mental Status: Normal Affect, Appropriate Debridement Note Post-Debridement Measurements/Treatment - Nurse 2 - General Ulcer CM Notes Start: 09/02/19 09:58 Freq: Status: Active Protocol: Activity Type Activity Date Activity User E-Sign Co-Sign Detail Recorded Client Recorded Date Recorded By Document 09/02/19 10:19 MW [id number] 09/02/19 10:25 MW Document 09/09/19 10:24 MW [id number] 09/09/19 10:27 MW Document 09/16/19 09:26 MW [id number] 09/16/19 09:28 MW 09/02/19 09/09/19 09/16/19 10:19 10:24 09:26 Wound Center Nurse 2 #2- L DORSAL FOOT -Time 10:20 10:24 09:27 -Correct Patient Yes Yes Yes -Correct Side, Site, Position Yes Yes Yes -Correct Procedure Yes Yes Yes -Procedure Performed Yes Yes Yes -Type of Procedure Debridement Debridement Debridement -Clinical Debridement Subcutaneous Subcutaneous Subcutaneous -Post Debridement Size (cm) - Length 0.9 1.0 0.7 -Post Debridement Size (cm) - Width 1.7 1.8 1.5 -Post Debridement Size (cm) - Depth 0.2 0.2 0.2 -Total Square Cm 1.53 1.80 1.05 -Wound/Ulcer Outcome Not Healed Not Healed Not Healed -Ulcer Cleansing Rinsed/ Rinsed/ Rinsed/ Irrigated with Irrigated with Irrigated with Saline Saline Saline -Foul Odor after Cleansing No No No -Bioengineered Tissue No No No -Bleeding Controlled with Pressure Pressure Pressure -Offloading No No No -Treatment Response Procedure Procedure Procedure Tolerated Well Tolerated Well Tolerated Well #1- R DORSAL FOOT -Time 10: 10:24 09:27 -Correct Patient Yes Yes Yes -Correct Side, Site, Position Yes Yes Yes -Correct Procedure Yes Yes Yes -Procedure Performed Yes Yes Yes -Type of Procedure Debridement Debridement Debridement -Clinical Debridement Subcutaneous Subcutaneous Subcutaneous -Post Debridement Size (cm) - Length 0.5 0.8 0.4 -Post Debridement Size (cm) - Width 1.0 1.2 0.7 -Post Debridement Size (cm) - Depth 0.2 0.2 0.1 -Total Square Cm 0.50 0.96 0.28 -Wound/Ulcer Outcome Not Healed Not Healed Not Healed -Ulcer Cleansing Rinsed/ Rinsed/ Rinsed/ Irrigated with Irrigated with Irrigated with Saline Saline Saline -Foul Odor after Cleansing No No No -Bioengineered Tissue No No No -Bleeding Controlled with Pressure Pressure Pressure -Offloading No No No -Treatment Response Procedure Procedure Procedure Tolerated Well Tolerated Well Tolerated Well Pain Scale: 0-10 Numeric Is Patient Pain Free? Yes Yes Yes Wound debrided: stage right dorsal foot ulcer Wound Grade/Stage: Stage II Type of Debridement: Excisional debridement Depth: Down to and including healthy tissue, in the subcutaneous layer Percentage of wound debrided: 100 Instrument Used: 5mm curette Tissue Removed: Devitalized tissue and fibrin Severity: Limited To Skin Breakdown Amount of bleeding with debridement: Mild Bleeding Controlled with: Compression and gauze Patient tolerated procedure well - Additional Wound Wound debrided: Left dorsal foot ulcer Wound Grade/Stage: Stage II Type of Debridement: Excisional debridement Anesthesia Used: 5% Lidocaine Gel Depth: Down to and including healthy tissue, in the subcutaneous layer Percentage of wound debrided: 100 Instrument Used: 5mm curette Tissue Removed: Fibrin and devitalized tissue Severity: Limited To Skin Breakdown Bleeding Controlled with: Compression and gauze Patient tolerated procedure: Patient tolerated procedure well Assessment/Plan Active Problems (Last Reviewed 08/18/19 @ 08:[address] Jorje Carroll MD) Decubitus ulcer of foot, stage 2 (Acute) Diabetic foot ulcer associated with diabetes mellitus due to underlying condition (Acute) Assessment: Diabetic foot ulcers bilateral dorsal feet. Infected wounds. Diabetes type 1 uncontrolled Plan: Wash feet with antibacterial soap. Apply Promogran to wound base moistened cover with gauze and tape every day. Follow up 1 week
[2019-09-23 08:41] VITALS: BP 140/80; PULSE 68; RESP 18; TEMP 36.8; BMI 28.0
--- NOTE | 2019-09-23 09:34 | PCM.WC.PN ---
(1) Decubitus ulcer of foot, stage 2 Status: Acute Current Visit: Yes Code(s): L89.892 - Pressure ulcer of other site, stage 2 (2) Diabetic foot ulcer associated with diabetes mellitus due to underlying condition Status: Acute Current Visit: Yes Qualifiers: Non-pressure ulcer stage: limited to breakdown of skin Code(s): E08.621 - Diabetes mellitus due to underlying condition with foot ulcer; L97.509 - Non-pressure chronic ulcer of other part of unspecified foot with unspecified severity Type of Wound Date of Service: 09/23/19 Chief Complaint: Follow up bilateral open ulcers bilateral dorsal feet. History of Wound: 58-year-old white male with diabetes not well controlled was wearing crocs and a latter working and sweating 1 week ago. He later noted 2 blisters had formed on the top of his feet from rubbing. He burst the blisters open and started using topical antibiotics. Did see his family doctor and was put on oral antibiotics and told to follow-up in the wound center for debridement. Progress of Wound: Today bilateral dorsal foot ulcers are healing well .Much smaller and us improving on the promogran well. Patient was approved for epi-fix but his kku-to-cutogl is high and he prefers not to use it. They are responding well to the antibiotic therapy he was added and metronidazole this last week for the cocci that were found in the wounds to. Patient is going out of town and will be back in 2 weeks - Physical Exam Vital Signs Temp Pulse Resp BP 98.3 F 68 18 140/80 H 09/23/19 08:41 09/23/19 08:41 09/23/19 08:41 09/23/19 08:41 General: Oriented x3, Cooperative, Well developed HEENT: Atraumatic, PERRLA Oral: Moist Mucosa Neck: Supple, No JVD Lungs: Clear to auscultation, Normal air movement Cardiovascular: Regular rate, Regular Rhythm Abdomen: Bowel Sounds Present, Soft, Non Tender, No Hepato-splenomegaly Extremities: No clubbing, No edema Skin: Ulcer/ Wound - Stage II ulcers bilateral dorsal feet Wound Measurements and Assessment WC - Nurse 1 - General Ulcer Measurement Start: 09/02/19 09:58 Freq: Status: Active Protocol: Activity Type Activity Date Activity User E-Sign Co-Sign Detail Recorded Client Recorded Date Recorded By Document 09/23/19 08:41 MI [id number] 09/23/19 08:47 MI 09/23/19 08:41 Wound Center Nurse 1 [Ulcer Assessment] #2- L DORSAL FOOT -Current Size (cm) - Length 1.5 -Current Size (cm) - Width 0.6 -Current Size (cm) - Depth 0.2 -Total Square Cm 0.90 -Photo Taken No -Exudate Amt Small -Exudate Type Serosanguineous -Wound Margin Flat & Intact -Granulation Amt Large (67-100%) -Granulation Quality Pale,[place] -Slough/Fibrin Yes -Necrosis Amt Small (1-33%) -Texture (Grace-wound Skin Appearance) Assessed -Moisture (Grace-wound Skin Appearance Assessed, ) Maceration -Color (Grace-wound Skin Appearance) Assessed -Temperature (Grace-wound Skin No Abnormality Appearance) (Pt Warm) -Tenderness on Palpation (Grace-wound No Skin Appearance) -Ulcer Cleansing Rinsed/ Irrigated with Saline -Foul Odor after Cleansing No -Anesthetic Used 4% Lidocaine Solution #1- R DORSAL FOOT -Current Size (cm) - Length 0.5 -Current Size (cm) - Width 0.2 -Current Size (cm) - Depth 0.2 -Total Square Cm 0.10 -Exudate Amt Small -Exudate Type Serosanguineous -Wound Margin Flat & Intact -Granulation Amt Large (67-100%) -Granulation Quality Pale,[place] -Necrosis Amt Small (1-33%) -Necrotic Tissue Type Adherent Slough -Texture (Grace-wound Skin Appearance) Assessed -Moisture (Grace-wound Skin Appearance Assessed, ) Maceration -Color (Grace-wound Skin Appearance) Assessed -Temperature (Grace-wound Skin No Abnormality Appearance) (Pt Warm) -Tenderness on Palpation (Grace-wound No Skin Appearance) -Ulcer Cleansing Rinsed/ Irrigated with Saline -Foul Odor after Cleansing No -Anesthetic Used 4% Lidocaine Solution [Edema Assessment] -Lower Limb Edema Present NA WC - Nurse 2 - General Ulcer CM Notes Start: 09/02/19 09:58 Freq: Status: Active Protocol: Activity Type Activity Date Activity User E-Sign Co-Sign Detail Recorded Client Recorded Date Recorded By Document 09/23/19 08:52 [id number] 09/23/19 08:58 09/23/19 08:52 Wound Center Nurse 2 [Procedure/Treatment] #2- L DORSAL FOOT -Time 08:52 -Correct Patient Yes -Correct Side, Site, Position Yes -Correct Procedure Yes -Procedure Performed Yes -Type of Procedure Debridement -Clinical Debridement Subcutaneous -Post Debridement Size (cm) - Length 0.7 -Post Debridement Size (cm) - Width 1.4 -Post Debridement Size (cm) - Depth 0.1 -Total Square (cm) 0.98 -Wound/Ulcer Outcome Not Healed -Ulcer Cleansing Rinsed/ Irrigated with Saline -Foul Odor after Cleansing No -Bleeding Controlled with Pressure -Treatment Response Procedure Tolerated Well #1- R DORSAL FOOT -Time 08:52 -Correct Patient Yes -Correct Side, Site, Position Yes -Correct Procedure Yes -Procedure Performed Yes -Type of Procedure Debridement -Clinical Debridement Subcutaneous -Post Debridement Size (cm) - Length 0.2 -Post Debridement Size (cm) - Width 0.4 -Post Debridement Size (cm) - Depth 0.1 -Total Square (cm) 0.08 -Wound/Ulcer Outcome Not Healed -Ulcer Cleansing Rinsed/ Irrigated with Saline -Foul Odor after Cleansing No -Bleeding Controlled with Pressure [See Physician Procedure note for Specifics] Pain Scale: 0-10 Numeric [Pain] -Is Patient Pain Free? Yes Musculoskeletal: No Tenderness to Palpation of Joints or Extremities Lymphatic: No Cervical, Supraclavicular, or Inguinal Adenopathy Neurological: Cranial nerves II-XII grossly intact, Neuro grossly intact Psych/Mental Status: Normal Affect, Appropriate Debridement Note Post-Debridement Measurements/Treatment WC - Nurse 2 - General Ulcer CM Notes Start: 09/02/19 09:58 Freq: Status: Active Protocol: Activity Type Activity Date Activity User E-Sign Co-Sign Detail Recorded Client Recorded Date Recorded By Document 09/02/19 10:19 MW [id number] 09/02/19 10:25 MW Document 09/09/19 10:24 MW [id number] 09/09/19 10:27 MW Document 09/16/19 09:26 MW [id number] 09/16/19 09:28 MW Document 09/23/19 08:52 PL [id number] 09/23/19 08:58 PL 09/02/19 09/09/19 09/16/19 10:19 10:24 09:26 Wound Center Nurse 2 #2- L DORSAL FOOT -Time 10:20 10:24 09:27 -Correct Patient Yes Yes Yes -Correct Side, Site, Position Yes Yes Yes -Correct Procedure Yes Yes Yes -Procedure Performed Yes Yes Yes -Type of Procedure Debridement Debridement Debridement -Clinical Debridement Subcutaneous Subcutaneous Subcutaneous -Post Debridement Size (cm) - Length 0.9 1.0 0.7 -Post Debridement Size (cm) - Width 1.7 1.8 1.5 -Post Debridement Size (cm) - Depth 0.2 0.2 0.2 -Total Square (cm) 1.53 1.80 1.05 -Wound/Ulcer Outcome Not Healed Not Healed Not Healed -Ulcer Cleansing Rinsed/ Rinsed/ Rinsed/ Irrigated with Irrigated with Irrigated with Saline Saline Saline -Foul Odor after Cleansing No No No -Bioengineered Tissue No No No -Bleeding Controlled with Pressure Pressure Pressure -Offloading No No No -Treatment Response Procedure Procedure Procedure Tolerated Well Tolerated Well Tolerated Well #1- R DORSAL FOOT -Time 10: 10:24 09:27 -Correct Patient Yes Yes Yes -Correct Side, Site, Position Yes Yes Yes -Correct Procedure Yes Yes Yes -Procedure Performed Yes Yes Yes -Type of Procedure Debridement Debridement Debridement -Clinical Debridement Subcutaneous Subcutaneous Subcutaneous -Post Debridement Size (cm) - Length 0.5 0.8 0.4 -Post Debridement Size (cm) - Width 1.0 1.2 0.7 -Post Debridement Size (cm) - Depth 0.2 0.2 0.1 -Total Square (cm) 0.50 0.96 0.28 -Wound/Ulcer Outcome Not Healed Not Healed Not Healed -Ulcer Cleansing Rinsed/ Rinsed/ Rinsed/ Irrigated with Irrigated with Irrigated with Saline Saline Saline -Foul Odor after Cleansing No No No -Bioengineered Tissue No No No -Bleeding Controlled with Pressure Pressure Pressure -Offloading No No No -Treatment Response Procedure Procedure Procedure Tolerated Well Tolerated Well Tolerated Well Pain Scale: 0-10 Numeric Is Patient Pain Free? Yes Yes Yes 09/23/19 08:52 Wound Center Nurse 2 #2- L DORSAL FOOT -Time 08:52 -Correct Patient Yes -Correct Side, Site, Position Yes -Correct Procedure Yes -Procedure Performed Yes -Type of Procedure Debridement -Clinical Debridement Subcutaneous -Post Debridement Size (cm) - Length 0.7 -Post Debridement Size (cm) - Width 1.4 -Post Debridement Size (cm) - Depth 0.1 -Total Square (cm) 0.98 -Wound/Ulcer Outcome Not Healed -Ulcer Cleansing Rinsed/ Irrigated with Saline -Foul Odor after Cleansing No -Bioengineered Tissue -Bleeding Controlled with Pressure -Offloading -Treatment Response Procedure Tolerated Well #1- R DORSAL FOOT -Time 08:52 -Correct Patient Yes -Correct Side, Site, Position Yes -Correct Procedure Yes -Procedure Performed Yes -Type of Procedure Debridement -Clinical Debridement Subcutaneous -Post Debridement Size (cm) - Length 0.2 -Post Debridement Size (cm) - Width 0.4 -Post Debridement Size (cm) - Depth 0.1 -Total Square (cm) 0.08 -Wound/Ulcer Outcome Not Healed -Ulcer Cleansing Rinsed/ Irrigated with Saline -Foul Odor after Cleansing No -Bioengineered Tissue -Bleeding Controlled with Pressure -Offloading -Treatment Response Pain Scale: 0-10 Numeric Is Patient Pain Free? Yes Wound debrided: Right dorsal foot Wound Grade/Stage: Stage II Type of Debridement: Excisional debridement Anesthesia Used: 5% Lidocaine Gel Depth: Down to and including healthy tissue Percentage of wound debrided: 100 Instrument Used: 3mm curette Tissue Removed: Fibrin Severity: Limited To Skin Breakdown Amount of bleeding with debridement: Mild Bleeding Controlled with: Compression and gauze Patient tolerated procedure well - Additional Wound Wound debrided: Left dorsal foot Wound Grade/Stage: Stage II Type of Debridement: Excisional debridement Anesthesia Used: 5% Lidocaine Gel Depth: Down to and including healthy tissue, in the subcutaneous layer Percentage of wound debrided: 100 Instrument Used: 3mm curette Tissue Removed: Fibrin and slough Severity: Limited To Skin Breakdown Amount of bleeding with debridement: Mild Bleeding Controlled with: Compression and gauze Patient tolerated procedure: Patient tolerated procedure well Assessment/Plan Active Problems (Last Reviewed 08/18/19 @ 08:[address] Jorje Carroll MD) Decubitus ulcer of foot, stage 2 (Acute) Diabetic foot ulcer associated with diabetes mellitus due to underlying condition (Acute) Assessment: Diabetic foot ulcers bilateral dorsal feet. Infected wounds. Diabetes type 1 uncontrolled Plan: Wash feet with antibacterial soap. Apply Promogran to wound base moistened cover with gauze and tape every day. Follow up 2 week
== END 2019-10-02 23:59 ==
LOC: WC 08:30
PROVIDERS: PCP Internal Medicine; Referring Provider Nurse Practitioner; Visit Provider Nurse Practitioner
DX: E10.621 Type 1 diabetes mellitus with foot ulcer (principal); L89.892 Pressure ulcer of other site, stage 2; E10.65 Type 1 diabetes mellitus with hyperglycemia
CPT/HCPCS: 11042

== ENCOUNTER → 2019-10-05 09:30 | Outpatient (CLI) | payer MEDICARE, SELFPAY ==
[2019-09-23 08:41] VITALS: BMI 28.0
--- NOTE | 2019-10-05 09:39 | US_ITS ---
STUDY: RENAL ULTRASOUND - COMPLETE REASON FOR EXAM: Male, 58 years old. ckd TECHNIQUE: Ultrasound evaluation of the kidneys was performed with real-time and static sousa-scale imaging. COMPARISON: None. FINDINGS: RIGHT KIDNEY: Normal location of the right kidney, which is normal in size. The right kidney measures 11.4 cm x 5 cm x 4.9 cm. There is a normal cortex of the right kidney. The renal cortex measures 1.3 cm. There is no right renal mass or cyst. There are no right renal calculi. There is no right hydronephrosis. DISTAL RIGHT URETER: There is non-visualization of the distal right ureter. There is no demonstrated right ureterovesical junction calculus. There is a visualized right ureteral jet. LEFT KIDNEY: Normal location of the left kidney, which is normal in size. The left kidney measures 11.2 cm x 4.8 cm x 5.4 cm. There is a normal cortex of the left kidney. The renal cortex measures 1.5 cm. 2 simple cysts are seen in the left kidney. The larger measures 2.7 cm x 2.5 cm x 2.3 cm. There are no left renal calculi. There is no left hydronephrosis. DISTAL LEFT URETER: There is non-visualization of the distal left ureter. There is no demonstrated left ureterovesical junction calculus. There is a visualized left ureteral jet. BLADDER: The distended urinary bladder has a volume of 238.4 ml. There is a normal wall thickness of the distended urinary bladder. There is no demonstrated mass within the urinary bladder. There are no demonstrated bladder calculi. US/Kidney and Bladder IMPRESSION: 2 simple left renal cysts. Electronically Signed: Elijah Gallegos, at 14:44 EDT , Service support ,
== END ==
PROVIDERS: PCP Internal Medicine; Referring Provider Internal Medicine; Visit Provider Internal Medicine
DX: N18.3 Chronic kidney disease, stage 3 (moderate) (principal)
CPT/HCPCS: 76770

== ENCOUNTER → 2019-10-08 08:59 | Outpatient (CLI) | payer MEDICARE, SELFPAY ==
[2019-10-07 08:38] VITALS: BMI 28.0
[2019-10-08 09:28] LABS: Bacteria 0 SEEN /hpf (None Seen); Mucous, Urine 0 SEEN /hpf (<or=2+); Red Blood Cells-Urine 0 SEEN /hpf (0-5); Squamous Epithelial Cells - UA 0 SEEN /hpf (0-5); White Blood Cells 0 SEEN /hpf (0-5)
[2019-10-08 12:40] LABS: Color, Urine Yellow (Yellow); Glucose, Dipstick Normal (Normal); Ketone-Dipstick Negative (Negative); Leukocyte Esterase-Dipstick Negative /ul (Negative); Nitrite-Dipstick Negative (Negative); Occult Blood-Urine Negative /ul (Negative); Protein-Dipstick 100 mg/dl (Negative); Specific Gravity, Urine 1.005 (1.002-1.030); Urine Bilirubin Dipstick Negative (Negative); Urine Clarity Clear (Clear); Urine Urobilinogen Normal (Normal); Urine pH 6.5 (5.0 - 8.0)
[2019-10-08 12:56] LABS: PTHIN 16.6 pg/mL (18.4-80.1)
[2019-10-08 13:00] LABS: Protein, Urine (Random) 53.9 mg/dL (<11.9); Protein:Creat Ratio 2914 mg/g CRE (0-200)
[2019-10-08 13:03] LABS: Anion Gap 8 (5-15); BUN 18 mg/dL (7-18); BUN/Creat Ratio 14.6 RATIO (10-20); Calcium,Total 9.2 mg/dL (8.5-10.1); Chloride 102 mmol/L (98-107); Creatinine, Serum 1.23 mg/dL (0.70-1.30); EST Glomerular Filtration Rate 64 mL/min (>60); Est Glom Filt Rate - Afr Amer 77 mL/min (>60); Glucose 150 mg/dL (74-106); Phosphorus 3.9 mg/dL (2.5-4.9); Potassium 4.9 mmol/L (3.5-5.1); Sodium Level 137 mmol/L (136-145)
[2019-10-09 16:08] LABS: PROEL- A/G Ratio 0.9 (0.7-1.7); PROEL- Albumin 3.5 g/dL (2.9-4.4); PROEL- Alpha-1 Globulin 0.3 g/dL (0.0-0.4); PROEL- Alpha-2 Globulin 0.9 g/dL (0.4-1.0); PROEL- Beta Globulin 1.2 g/dL (0.7-1.3); PROEL- Gamma Globulin 1.3 g/dL (0.4-1.8); PROEL- Globulin, Total 3.7 g/dL (2.2-3.9); PROEL- TOTAL PROTEIN 7.2 g/dL (6.0-8.5)
== END ==
PROVIDERS: PCP Internal Medicine; Referring Provider Internal Medicine; Visit Provider Internal Medicine
DX: N18.3 Chronic kidney disease, stage 3 (moderate) (principal)
CPT/HCPCS: 36415; 80048; 81001; 82570; 83970; 84100; 84156; 84165

== ENCOUNTER → 2019-10-10 | Outpatient (CLI) | payer MEDICARE, SELFPAY ==
[2019-10-07 08:38] VITALS: BMI 28.0
[2019-10-10 11:40] LABS: Creatinine, Serum 1.32 mg/dL (0.70-1.30); EST Glomerular Filtration Rate 59 mL/min (>60); Est Glom Filt Rate - Afr Amer 71 mL/min (>60)
[2019-10-10 11:44] LABS: 24 Hour Urine Protein 1128.2 mg/24HR (<150 MG/24HR); 24HR. UA Prot. Total Volume 2725 mL; Urine Protein (24 Hour) 41.4 mg/dL (<11.9)
[2019-10-10 11:46] LABS: Creat.Clear Total Volume 2725 mL; Creatinine Clearance 87 ml/min (100-200); Creatinine Serum Creat 1.3 mg/dL (0.8-1.3); Creatinine Urine 60.4 mg/dL (NO RANGE EST.); EST Glomerular Filtration Rate 59 mL/min (>60); Est Glom Filt Rate - Afr Amer 71 mL/min (>60)
== END | disposition home or self-care (01) ==
LOC: LABSPEC 11:07
PROVIDERS: PCP Internal Medicine; Referring Provider Internal Medicine; Visit Provider Internal Medicine
DX: N18.3 Chronic kidney disease, stage 3 (moderate) (principal)
CPT/HCPCS: 36415; 81050; 82565; 82575; 84156

== ENCOUNTER 2019-10-14 08:30 | Outpatient (RCR) | payer MEDICARE, SELFPAY ==
[2019-10-03 00:34] VITALS: BP 140/80; PULSE 68; RESP 18; TEMP 36.8
[2019-10-07 08:38] VITALS: BP 167/85; PULSE 65; RESP 18; TEMP 36.3; BMI 28.0
--- NOTE | 2019-10-07 09:33 | PN.PCM_ITS ---
(1) Decubitus ulcer of foot, stage 2 Status: Acute Current Visit: No Qualifiers: Laterality: right Qualified Code(s): L89.892 - Pressure ulcer of other site, stage 2 Code(s): L89.892 - Pressure ulcer of other site, stage 2 (2) Diabetic foot ulcer associated with diabetes mellitus due to underlying condition Status: Acute Current Visit: Yes Qualifiers: Diabetic foot ulcer location: midfoot Non-pressure ulcer stage: with fat layer exposed Code(s): E08.621 - Diabetes mellitus due to underlying condition with foot ulcer; L97.509 - Non-pressure chronic ulcer of other part of unspecified foot with unspecified severity (3) Mixed hyperlipidemia Status: Acute Current Visit: No Code(s): E78.2 - Mixed hyperlipidemia (4) 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 Status: Chronic Current Visit: Yes Code(s): E10.40 - Type 1 diabetes mellitus with diabetic neuropathy, unspecified (5) Type 1 diabetes mellitus Status: Chronic Current Visit: Yes Qualifiers: Code(s): E10.9 - Type 1 diabetes mellitus without complications Comment: Dx : age 14 Type of Wound Date of Service: 10/07/19 Chief Complaint: Follow up bilateral open ulcers bilateral dorsal feet. History of Wound: 58-year-old white male with diabetes not well controlled was wearing crocs and a latter working and sweating 1 week ago. He later noted 2 blisters had formed on the top of his feet from rubbing. He burst the blisters open and started using topical antibiotics. Did see his family doctor and was p ut on oral antibiotics and told to follow-up in the wound center for debridement. Progress of Wound: Today right dorsal foot healed. Left dorsal foot slough. Smaller and will change to hydrogel and Adaptic. They responded well to the antibiotic therapy and metronidazole . - Physical Exam Vital Signs Temp Pulse Resp BP 97.4 F L 65 18 167/85 H 10/07/19 08:38 10/07/19 08:38 10/07/19 08:38 10/07/19 08:38 General: Oriented x3, Cooperative, Well developed HEENT: Atraumatic, PERRLA Oral: Moist Mucosa Neck: Supple, No JVD Lungs: Clear to auscultation, Normal air movement Cardiovascular: Regular rate, Regular Rhythm Abdomen: Bowel Sounds Present, Soft, Non Tender, No Hepato-splenomegaly Extremities: No clubbing, No edema Skin: Ulcer/ Wound - Left dorsal foot right foot healed Wound Measurements and Assessment WC - Nurse 1 - General Ulcer Measurement Start: 10/07/19 08:38 Freq: Status: Active Protocol: Activity Type Activity Date Activity User E-Sign Co-Sign Detail Recorded Client Recorded Date Recorded By Document 10/07/19 08:38 RB [id number] 10/07/19 08:41 RB 10/07/19 08:38 Wound Center Nurse 1 [Ulcer Assessment] #2- L DORSAL FOOT -Combined with other wound No -Current Size (cm) - Length 0.6 -Current Size (cm) - Width 1.4 -Current Size (cm) - Depth 0.1 -Total Square Cm 0.84 -Photo Taken Yes -Tunneling No -Undermining/Tunneling No -Circular Undermining No -Exudate Amt Medium -Exudate Type Serosanguineous -Wound Margin Flat & Intact -Granulation Amt Medium (34-66%) -Granulation Quality [place] -Slough/Fibrin Yes -Necrosis Amt Small (1-33%) -Necrotic Tissue Type Adherent Slough -Structure Exposed N/A -Texture (Grace-wound Skin Appearance) Assessed, Scarring -Moisture (Grace-wound Skin Appearance Assessed ) -Color (Grace-wound Skin Appearance) Assessed -Temperature (Grace-wound Skin No Abnormality Appearance) (Pt Warm) -Tenderness on Palpation (Grace-wound No Skin Appearance) -Ulcer Cleansing Wound Cleanser -Foul Odor after Cleansing No -Anesthetic Used 4% Lidocaine Solution #1- R DORSAL FOOT -Combined with other wound No -Current Size (cm) - Length 0 -Current Size (cm) - Width 0 -Current Size (cm) - Depth 0 -Total Square Cm 0 -Photo Taken Yes -Epithelialization Large 67-100% -Tunneling No -Undermining/Tunneling No -Circular Undermining No -Exudate Amt None Present -Granulation Amt Large (67-100%) -Granulation Quality [place] -Texture (Grace-wound Skin Appearance) Assessed -Moisture (Grace-wound Skin Appearance Assessed ) -Color (Grace-wound Skin Appearance) Assessed -Temperature (Grace-wound Skin No Abnormality Appearance) (Pt Warm) -Tenderness on Palpation (Grace-wound No Skin Appearance) -Ulcer Cleansing Wound Cleanser -Foul Odor after Cleansing No -Anesthetic Used 4% Lidocaine Solution WC - Nurse 2 - General Ulcer CM Notes Start: 10/07/19 08:38 Freq: Status: Active Protocol: Activity Type Activity Date Activity User E-Sign Co-Sign Detail Recorded Client Recorded Date Recorded By Document 10/07/19 08:51 MW [id number] 10/07/19 08:54 MW 10/07/19 08:51 Wound Center Nurse 2 [Procedure/Treatment] #2- L DORSAL FOOT -Time 08:51 -Correct Patient Yes -Correct Side, Site, Position Yes -Correct Procedure Yes -Procedure Performed Yes -Type of Procedure Debridement -Clinical Debridement Subcutaneous -Post Debridement Size (cm) - Length 0.5 -Post Debridement Size (cm) - Width 1.0 -Post Debridement Size (cm) - Depth 0.1 -Total Square (cm) 0.50 -Wound/Ulcer Outcome Not Healed -Ulcer Cleansing Rinsed/ Irrigated with Saline -Foul Odor after Cleansing No -Bioengineered Tissue No -Bleeding Controlled with Pressure -Offloading No -Treatment Response Procedure Tolerated Well #1- R DORSAL FOOT -Time 08:52 -Correct Patient Yes -Correct Side, Site, Position Yes -Correct Procedure Yes -Procedure Performed No -Post Debridement Size (cm) - Length 0 -Post Debridement Size (cm) - Width 0 -Post Debridement Size (cm) - Depth 0 -Total Square (cm) 0 -Wound/Ulcer Outcome Healed- Epithelialized [See Physician Procedure note for Specifics] Pain Scale: 0-10 Numeric [Pain] -Is Patient Pain Free? Yes Musculoskeletal: No Tenderness to Palpation of Joints or Extremities Lymphatic: No Cervical, Supraclavicular, or Inguinal Adenopathy Neurological: Cranial nerves II-XII grossly intact, Neuro grossly intact Psych/Mental Status: Normal Affect, Appropriate Debridement Note Post-Debridement Measurements/Treatment - Nurse 2 - General Ulcer CM Notes Start: 10/07/19 08:38 Freq: Status: Active Protocol: Activity Type Activity Date Activity User E-Sign Co-Sign Detail Recorded Client Recorded Date Recorded By Document 10/07/19 08:51 MW [id number] 10/07/19 08:54 MW 10/07/19 08:51 Wound Center Nurse 2 #2- L DORSAL FOOT -Time 08:51 -Correct Patient Yes -Correct Side, Site, Position Yes -Correct Procedure Yes -Procedure Performed Yes -Type of Procedure Debridement -Clinical Debridement Subcutaneous -Post Debridement Size (cm) - Length 0.5 -Post Debridement Size (cm) - Width 1.0 -Post Debridement Size (cm) - Depth 0.1 -Total Square (cm) 0.50 -Wound/Ulcer Outcome Not Healed -Ulcer Cleansing Rinsed/ Irrigated with Saline -Foul Odor after Cleansing No -Bioengineered Tissue No -Bleeding Controlled with Pressure -Offloading No -Treatment Response Procedure Tolerated Well #1- R DORSAL FOOT -Time 08:52 -Correct Patient Yes -Correct Side, Site, Position Yes -Correct Procedure Yes -Procedure Performed No -Post Debridement Size (cm) - Length 0 -Post Debridement Size (cm) - Width 0 -Post Debridement Size (cm) - Depth 0 -Total Square (cm) 0 -Wound/Ulcer Outcome Healed- Epithelialized Pain Scale: 0-10 Numeric Is Patient Pain Free? Yes Wound debrided: Left dorsal foot decubitus ulcer Wound Grade/Stage: Page 2 Anesthesia Used: 5% Lidocaine Gel Depth: Down to and including healthy tissue, in the subcutaneous layer Percentage of wound debrided: 100 Instrument Used: 5mm curette Tissue Removed: Slough Severity: Limited To Skin Breakdown Amount of bleeding with debridement: Mild Bleeding Controlled with: Pressure, Compression and gauze Patient tolerated procedure well Assessment/Plan Active Problems (Last Reviewed 08/18/19 @ 08:[address] Jorje Carroll MD) Diabetic foot ulcer associated with diabetes mellitus due to underlying condition (Acute) 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) Type 1 diabetes mellitus (Chronic) Dx : age 14 Assessment: Diabetic foot ulcers left dorsal feet. Right dorsal foot decubitus ulcer healed. Infected wounds soft. Diabetes type 1 uncontrolled. Neuropathy lower extremities Plan: Wash feet with antibacterial soap. Apply hydrogel and Adaptic to left dorsal foot cover with gauze every day. Follow up 1 week
[2019-10-14 09:01] VITALS: BP 175/73; PULSE 61; RESP 18; TEMP 36.2; BMI 28.0
--- NOTE | 2019-10-14 09:57 | PCM.WC.PN ---
(1) Decubitus ulcer of foot, stage 2 Status: Acute Current Visit: Yes Qualifiers: Laterality: right Qualified Code(s): L89.892 - Pressure ulcer of other site, stage 2 Code(s): L89.892 - Pressure ulcer of other site, stage 2 (2) Diabetic foot ulcer associated with diabetes mellitus due to underlying condition Status: Acute Current Visit: Yes Qualifiers: Diabetic foot ulcer location: midfoot Non-pressure ulcer stage: with fat layer exposed Code(s): E08.621 - Diabetes mellitus due to underlying condition with foot ulcer; L97.509 - Non-pressure chronic ulcer of other part of unspecified foot with unspecified severity (3) Mixed hyperlipidemia Status: Acute Current Visit: Yes Code(s): E78.2 - Mixed hyperlipidemia (4) 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 History of Wound: 58-year-old white male with diabetes not well controlled was wearing crocs and a latter working and sweating 1 week ago. He later noted 2 blisters had formed on the top of his feet from rubbing. He burst the blisters open and started using topical antibiotics. Did see his family doctor and was put on oral antibiotics and told to follow-up in the wound center for debridement. Progress of Wound: Today the left dorsal foot is healed patient will be discharged from the wound center - Physical Exam Vital Signs Temp Pulse Resp BP 97.1 F L 61 18 175/73 H 10/14/19 09:01 10/14/19 09:01 10/14/19 09:01 10/14/19 09:01 General: Oriented x3, Cooperative, Well developed HEENT: Atraumatic, PERRLA Oral: Moist Mucosa Neck: Supple, No JVD Lungs: Clear to auscultation, Normal air movement Cardiovascular: Regular rate, Regular Rhythm Abdomen: Bowel Sounds Present, Soft, Non Tender, No Hepato-splenomegaly Extremities: No clubbing, No edema Skin: Ulcer/ Wound - Left dorsal foot healing ulcer decubitus Wound Measurements and Assessment - Nurse 1 - General Ulcer Measurement Start: 10/07/19 08:38 Freq: Status: Active Protocol: Activity Type Activity Date Activity User E-Sign Co-Sign Detail Recorded Client Recorded Date Recorded By Document 10/14/19 09:01 RB [id number] 10/14/19 09:03 RB 10/14/19 09:01 Wound Center Nurse 1 [Ulcer Assessment] #2- L DORSAL FOOT -Combined with other wound No -Current Size (cm) - Length 0.1 -Current Size (cm) - Width 0.1 -Current Size (cm) - Depth 0.1 -Total Square Cm 0.01 -Photo Taken Yes -Tunneling No -Undermining/Tunneling No -Circular Undermining No -Exudate Amt Small -Exudate Type Serosanguineous -Wound Margin Flat & Intact -Granulation Amt Medium (34-66%) -Granulation Quality [place] -Slough/Fibrin Yes -Necrosis Amt Small (1-33%) -Necrotic Tissue Type Adherent Slough -Structure Exposed N/A -Texture (Grace-wound Skin Appearance) Assessed -Moisture (Grace-wound Skin Appearance Assessed ) -Color (Grace-wound Skin Appearance) Assessed -Temperature (Grace-wound Skin No Abnormality Appearance) (Pt Warm) -Tenderness on Palpation (Grace-wound No Skin Appearance) -Ulcer Cleansing Wound Cleanser -Foul Odor after Cleansing No -Anesthetic Used 4% Lidocaine Solution - Nurse 2 - General Ulcer CM Notes Start: 10/07/19 08:38 Freq: Status: Active Protocol: Activity Type Activity Date Activity User E-Sign Co-Sign Detail Recorded Client Recorded Date Recorded By Document 10/14/19 09:13 MW [id number] 10/14/19 09:17 MW 10/14/19 09:13 Wound Center Nurse 2 [Procedure/Treatment] -Time 09:15 -Correct Patient Yes -Correct Side, Site, Position Yes -Correct Procedure Yes -Procedure Performed No -Post Debridement Size (cm) - Length 0 -Post Debridement Size (cm) - Width 0 -Post Debridement Size (cm) - Depth 0 -Total Square (cm) 0 -Wound/Ulcer Outcome Healed- Epithelialized [See Physician Procedure note for Specifics] Pain Scale: 0-10 Numeric [Pain] -Is Patient Pain Free? Yes Musculoskeletal: No Tenderness to Palpation of Joints or Extremities Lymphatic: No Cervical, Supraclavicular, or Inguinal Adenopathy Neurological: Cranial nerves II-XII grossly intact, Neuro grossly intact Psych/Mental Status: Normal Affect, Appropriate Debridement Note Post-Debridement Measurements/Treatment WC - Nurse 2 - General Ulcer CM Notes Start: 10/07/19 08:38 Freq: Status: Active Protocol: Activity Type Activity Date Activity User E-Sign Co-Sign Detail Recorded Client Recorded Date Recorded By Document 10/07/19 08:51 MW [id number] 10/07/19 08:54 MW Document 10/14/19 09:13 MW [id number] 10/14/19 09:17 MW 10/07/19 10/14/19 08:51 09:13 Wound Center Nurse 2 #2- L DORSAL FOOT -Time 08:51 09:15 -Correct Patient Yes Yes -Correct Side, Site, Position Yes Yes -Correct Procedure Yes Yes -Procedure Performed Yes No -Type of Procedure Debridement -Clinical Debridement Subcutaneous -Post Debridement Size (cm) - Length 0.5 0 -Post Debridement Size (cm) - Width 1.0 0 -Post Debridement Size (cm) - Depth 0.1 0 -Total Square (cm) 0.50 0 -Wound/Ulcer Outcome Not Healed Healed- Epithelialized -Ulcer Cleansing Rinsed/ Irrigated with Saline -Foul Odor after Cleansing No -Bioengineered Tissue No -Bleeding Controlled with Pressure -Offloading No -Treatment Response Procedure Tolerated Well #1- R DORSAL FOOT -Time 08:52 -Correct Patient Yes -Correct Side, Site, Position Yes -Correct Procedure Yes -Procedure Performed No -Post Debridement Size (cm) - Length 0 -Post Debridement Size (cm) - Width 0 -Post Debridement Size (cm) - Depth 0 -Total Square (cm) 0 -Wound/Ulcer Outcome Healed- Epithelialized Pain Scale: 0-10 Numeric Is Patient Pain Free? Yes Yes No debridement was completed today Assessment/Plan Active Problems (Last Reviewed 08/18/19 @ 08:[address] Jorje Carroll MD) Decubitus ulcer of foot, stage 2 (Acute) Diabetic foot ulcer associated with diabetes mellitus due to underlying condition (Acute) Mixed hyperlipidemia (Acute) 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) Type 1 diabetes mellitus (Chronic) Dx : age 14 Assessment: Diabetic foot ulcers left dorsal feet resolved. Right dorsal foot decubitus ulcer healed. Infected wounds soft resolved. Diabetes type 1 uncontrolled. Neuropathy lower extremities Plan: Cover left foot for 1 more week with dry gauze to protect new skin follow-up as needed discharge from the wound center
== END 2019-11-02 23:59 ==
LOC: WC 08:30
PROVIDERS: PCP Internal Medicine; Referring Provider Nurse Practitioner; Visit Provider Nurse Practitioner
DX: E10.621 Type 1 diabetes mellitus with foot ulcer (principal); L89.892 Pressure ulcer of other site, stage 2; E10.40 Type 1 diabetes mellitus with diabetic neuropathy, unspecified; E78.2 Mixed hyperlipidemia
CPT/HCPCS: 11042; 99212; G0463

== ENCOUNTER → 2019-10-14 09:46 | Outpatient (CLI) | payer MEDICARE, SELFPAY ==
[2019-05-06 09:08] VITALS: BMI 28.0
[2019-10-14 09:01] VITALS: BMI 28.0
--- NOTE | 2019-10-14 09:47 | CDU_ITS ---
Reason For Study: Vertigo Rt. Velocities/BP Lt. Velocities/BP Prox CCA 77.3/13.4 cm/sec. Prox CCA 69.1/13.9 cm/sec. Mid CCA 107.3/9.5 cm/sec. Mid CCA 74/15.1 cm/sec. Dist CCA 70.8/13.4 cm/sec. Dist CCA 69.1/12.6 cm/sec. Prox ICA 88.8/12.6 cm/sec. Prox ICA 110.1/11.5 cm/sec. Mid ICA 93.7/15.1 cm/sec. Mid ICA 119.3/20.6 cm/sec. Dist ICA 86.3/17.6 cm/sec. Dist ICA 79.1/17 cm/sec. Rt. ICA/CCA = 1.21. Lt. ICA/CCA = 1.73. Prox ECA 154.3/11.6 cm/sec. Prox ECA 210.6/16.3 cm/sec. Rt. Vert. 56.9/10.2 cm/sec. Lt. Vert. 49.8/9.1 cm/sec. Right Extracranial There is homogeneous, smooth atherosclerotic plaque noted in the right common carotid artery. There is heterogeneous, irregular atherosclerotic plaque noted in the right internal carotid artery. The atherosclerotic plaque causes acoustic shadowing. There is heterogeneous, irregular atherosclerotic plaque noted in the right external carotid artery. Antegrade flow is noted in the right vertebral artery. Left Extracranial There is homogeneous, smooth atherosclerotic plaque noted in the left common carotid artery. There is heterogeneous, irregular atherosclerotic plaque noted in the left internal carotid artery. The atherosclerotic plaque causes acoustic shadowing. There is heterogeneous, irregular atherosclerotic plaque noted in the left external carotid artery. Antegrade flow is noted in the left vertebral artery. Procedure Carotid Duplex [id number]. Exam performed in department. Interpretation Summary Irregular calcific plaque at the proximal right internal and external carotid artery <50% stenosis right internal carotid <50% stenosis right external carotid Irregular calcific plaque with shadowing at the proximal left internal and external carotid artery <50% stenosis left internal carotid >50% stenosis left external carotid Patent and antegrade vertebrals bilaterally No significant change from the previous examination of March 15, 2014 Ordering Physician: Gilmar Ybarra Referring Physician: Madhav Avendano Performed By: Olga Mays RVT
--- NOTE | 2019-10-14 09:47 | ECHOD_ITS ---
Reason For Study: Hypertension Procedure This was a 2D Doppler, Color Flow transthoracic echocardiogram. Exam performed in department. Left Ventricle Normal LV size. Mild concentric left ventricular hypertrophy. Left ventricular systolic function is normal. The estimated ejection fraction is 60 %. No regional wall motion abnormalities noted. Right Ventricle Normal RV size. Normal systolic function. Atria Normal left atrium. Normal right atrium. Mitral Valve Normal mitral valve. Trivial eccentric mitral valve insufficiency. Tricuspid Valve Normal tricuspid valve. Aortic Valve Normal aortic valve. Trisinus/trileaflet aortic valve. Pulmonic Valve The pulmonic valve is not well visualized. Great Vessels Normal aortic root. The pulmonary artery is normal size. Normal inferior vena cava. Pericardium/Pleural No pericardial effusion. MMode/2D Measurements & Calculations LVIDd: 4.8 cm IVSd: 1.3 cm Ao root diam: 2.7 cm LVIDs: 3.3 cm LVPWd: 1.3 cm LA dimension: 4.1 cm RVDd: 3.3 cm FS: 31.2 % LAV(MOD-bp): 61.1 ml LA A4 area: 19.6 cm2 RA A4 area: 14.3 cm2 LAV(MOD-bp) Indexed: 31.7 ml/m2 LAV(MOD-sp2): 63.9 ml LAV(MOD-sp4): 56.8 ml Time Measurements MV dec time: 0.19 sec Doppler Measurements & Calculations MV E max francisco: 89.4 cm/sec Lat Peak E' [place]: 9.7 cm/sec Med Peak E' [place]: 6.6 cm/sec MV A max [place]: 71.9 cm/sec E/E' lat: 9.2 E/E' med: 13.4 MV E/A: 1.2 MV V2 max: 98.7 cm/sec MV P1/2t max [place]: 97.6 cm/sec Ao V2 max: 128.3 cm/sec MV max P.9 mmHg MV P1/2t: 97.7 msec Ao max P.7 mmHg MV V2 mean: 64.1 cm/sec MV dec slope: 292.6 cm/sec2 MV mean P.8 mmHg MVA(P1/2t): 2.3 cm2 MV V2 VTI: 31.6 cm LV V1 max: 90.2 cm/sec PA V2 max: 94.2 cm/sec LV V1 max P.3 mmHg Interpretation Summary Normal LV size. Left ventricular systolic function is normal. Mild concentric left ventricular hypertrophy. Trivial eccentric mitral valve insufficiency. Structurally normal valves. Ordering Physician: Pop Castellanos Referring Physician: Madhav Avendano Performed By: Radha Arciniega RDCS and Student
== END ==
PROVIDERS: PCP Internal Medicine; Referring Provider Internal Medicine Cardiovascular Disease; Visit Provider Internal Medicine Cardiovascular Disease
DX: I65.29 Occlusion and stenosis of unspecified carotid artery (principal); R42 Dizziness and giddiness; I10 Essential (primary) hypertension; G47.30 Sleep apnea, unspecified
CPT/HCPCS: 11042; 93306; 93880; 99212; G0463

== ENCOUNTER → 2020-01-18 09:52 | Outpatient (CLI) | payer MEDICARE, SELFPAY ==
[2019-12-04 10:30] VITALS: BMI 28.0
[2020-01-18 12:54] LABS: PSA,Total - Annual Screen 0.49 ng/mL (0.00-4.00)
[2020-01-18 13:16] LABS: ALB/GLOB Ratio 0.8 RATIO (0.9-2.4); AST(SGOT) 19 U/L (15-37); Alanine Aminotransfer ALT/SGPT 74 U/L (16-61); Albumin, Serum 3.3 g/dL (3.2-5.0); Alkaline Phosphatase 174 U/L (45-117); Anion Gap 5 (5-15); BUN 24 mg/dL (7-18); Calcium,Total 8.7 mg/dL (8.5-10.1); Chloride 102 mmol/L (98-107); Creatinine, Serum 1.26 mg/dL (0.70-1.30); EST Glomerular Filtration Rate 62 mL/min (>60); Est Glom Filt Rate - Afr Amer 75 mL/min (>60); Globulin 4.1 g/dL (2.2-4.2); Glucose 143 mg/dL (74-106); Potassium 4.6 mmol/L (3.5-5.1); Protein, Total 7.4 g/dL (6.4-8.2); Sodium Level 137 mmol/L (136-145)
== END ==
PROVIDERS: PCP Internal Medicine; Referring Provider Internal Medicine Endocrinology, Diabetes & Metabolism; Visit Provider Internal Medicine Endocrinology, Diabetes & Metabolism
DX: E10.65 Type 1 diabetes mellitus with hyperglycemia (principal); N40.0 Benign prostatic hyperplasia without lower urinary tract symptoms
CPT/HCPCS: 36415; 80053; 84153; G0103

== ENCOUNTER 2020-02-25 09:43 | Emergency (ER) | payer MEDICARE, SELFPAY ==
[2019-12-04 10:30] VITALS: BMI 28.0
[2020-02-25 09:44] VITALS: BP 159/85; PULSE 68; RESP 18; TEMP 36.7; O2SAT 99; BMI 29.3
[2020-02-25 09:49] VITALS: PULSE 64; O2SAT 100
[2020-02-25] MEDS: Aspirin 81 MG TAB.CHEW 324 MG PO (09:51)
--- NOTE | 2020-02-25 09:52 | ED.VIS.GEN ---
History of Present Illness Chief Complaint: Chest Pain Informant: Patient Onset: Days Context: Gradual Onset Timing: Waxes and wanes Current Severity: Moderate Maximum Severity: Moderate Narrative: Patient presents secondary to left-sided chest pain. He describes the pain as a pressure sensation in the left side the chest. It is been ongoing for a few days. He states it does seem to get worse with activity but then when he sits down to rest will slightly get more tight. He denies shortness of breath, lightheadedness, palpitations. Today he noted the pain going down into his left arm. He does report having a stress test in the past and on review of records appears this was done in 2010. At that time no ischemia was noted. - Past Medical History (1) Essential hypertension Status: Chronic (2) Hypothyroidism Status: Chronic (3) Mixed hyperlipidemia Status: Chronic (4) 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 Status: Chronic (5) Type 1 diabetes mellitus Status: Chronic Comment: Dx : age 14 Past Medical History - Allergies and Home Meds Allergies/Adverse Reactions: Allergies latex Allergy (Unknown, Verified 12/04/19 09:40) Unknown adhesive Allergy (Verified 12/04/19 09:40) Rash [id number] Reductase Inhibitor Adverse Reaction (Severe, Verified 12/04/19 09:40) muscle pain Primary Care Physician: Madhav Avendano MD [Primary Care Provider] - As soon as possible Prior records reviewed: Yes Smoking Status: Former smoker Review of Systems General: Denies: Chills, Fever Eyes: Denies: Visual changes - bilaterally ENT: Denies: Bilateral ear pain Cardiovascular: Reports: Chest pain. Denies: Palpitations, Heart racing Respiratory: Denies: Dyspnea, Cough Gastrointestinal: Denies: Abdominal pain, Vomiting, Diarrhea Genitourinary: Denies: Dysuria Musculoskeletal: Denies: Swelling, Extremity Pain Skin: Denies: Rash Neurological: Denies: Headache Hematologic: Denies: Easy bruising, Easy bleeding Allergy: Denies: Uticaria Physical Exam Vital Signs/Narrative: Vital Signs Temp Pulse Resp BP Pulse Ox 02/25/20 09:49 64 100 02/25/20 09:44 98.1 F 68 18 159/85 H 99 Inital Vital Signs reviewed: Yes General: Well nourished, Well developed Head: Normocephalic ENT: Moist mucous membranes Neck: Supple Cardiovascular: Regular rate, Regular rhythm Respiratory: No distress, CTA bilaterally, Chest tenderness - Mild tenderness of the left pectoral muscle. No crepitus. Abdomen: Soft, Nontender, Normal bowel sounds Extremities: Tenderness - Mild tenderness over the left upper arm. No overlying skin changes. Strong distal pulses. Skin: Normal color, No rash Neurological: Alert, Oriented x3, Normal Strength Psychological: Normal affect Diagnostic/Tx/Re-eval Chest X-Ray - ED: 1 View, Read by ED Physician, Chronic Changes, No Infiltrates Impressions Chest X-Ray 02/25/20 10:10 IMPRESSION: No acute abnormality is seen. Electronically Signed: Elijah Gallegos, at 11:07 EST , Service support , 02/25/20 10:10 Chest 1 View (Portable) [RAD] Stat Laboratory Results 02/25/20 02/25/20 02/25/20 10:21 10:21 13:15 WBC 8.0 RBC 4.37 L Hgb 13.2 Hct 39.9 L MCV 91.3 MCH 30.2 MCHC 33.1 RDW Std Deviation 46.5 H RDW Coeff of Jesus 13.9 Plt Count 369 MPV 8.6 Immature Gran % (Auto) 0.400 Neut % (Auto) 71.4 H Lymph % (Auto) 18.1 L [place] % (Auto) 7.2 Eos % (Auto) 2.5 Baso % (Auto) 0.4 Absolute Neuts (auto) 5.7 Absolute Lymphs (auto) 1.45 Nucleated RBC % 0 Sodium 133 L Potassium 5.3 H Chloride 100 Carbon Dioxide 30.0 Anion Gap 3 L BUN 22 H Creatinine 1.33 H Estim Creat Clear Calc 54.53 Est GFR (MDRD) Af Amer 70 Est GFR (MDRD) Non-Af 58 L BUN/Creatinine Ratio 16.5 Glucose 251 H Calcium 8.8 Troponin I < 0.015 < 0.015 - EKG Initial EKG Interpretation: Sinus Rhythm - Sinus at 65 with no acute ischemia. Follow-up EKG Interpretation: Sinus Rhythm - Sinus at 60 with occasional PVCs. No acute ST change. - Medical Decision Making Patient was given aspirin on arrival. Patient symptoms have improved in the emergency room. He does have risk factors for cardiovascular disease including diabetes, hypertension, and high cholesterol. His prior stress test was in 2010. I advised the patient at this point we have 3 options, admit for cycling of enzymes and stress test, 3-hour repeat troponin and further risk stratification, or signing out AMA with close follow-up. Patient did agree to stay for a repeat troponin. Patient does present on [place] and does realize that if he were to stay in the hospital is stress test would likely not be performed for 2 days. Repeat EKG is unremarkable. Patient has had no significant arrhythmias other than frequent PVCs. He has had no worsening chest pain. His repeat enzymes remain at less than 0.015. I will speak with the patient's primary care physician or on-call coverage to help arrange close follow-up for outpatient stress test. Patient was given return instructions and voices understanding and agreement. ED Disposition - Plan for ED Patient: Disposition: Home or Assisted Living Diagnosis: Chest pain Instructions: ED Chest Pain, Uncertain Cause Referrals: Madhav Avendano MD [Primary Care Provider] - As soon as possible
--- NOTE | 2020-02-25 10:10 | RAD_ITS ---
STUDY: X-RAY CHEST REASON FOR EXAM: Male, 59 years old. Chest pain x couple days, radiating down lt shoulder and arm starting today. TECHNIQUE: Single AP portable view of the chest. COMPARISON: Comparison is made with prior study dated 06/15/2016. FINDINGS: EKG electrodes are seen. The lungs are clear and expanded. There is no demonstrated pleural abnormality. There is borderline cardiomegaly. Normal mediastinum and oliver. Normal visualized pulmonary arteries. Normal visualized aortic arch and descending thoracic aorta. There are degenerative changes of the visualized thoracic spine. Normal visualized ribs, clavicles, and shoulders. There is no demonstrated abnormality of the visualized soft tissue structures of the upper abdomen. RAD/Chest 1 View (Portable) IMPRESSION: No acute abnormality is seen. Electronically Signed: Elijah Gallegos, at 11:07 EST , Service support ,
[2020-02-25 10:29] LABS: Absolute Lymphocyte Count 1.45 X10^3/uL (0.83-4.51); Absolute Neutrophil Count 5.7 X10^3/uL (2.0-7.7); Basophil# 0.03 X10^3/uL; Basophil% 0.4 % (0-1); Eosinophils% 2.5 % (0-5); Hematocrit 39.9 % (40-54); Hemoglobin 13.2 g/dL (13.0-16.5); Lymphocyte # 1.45 X10^3/ul (4.0); Lymphocyte % 18.1 % (19-41); Mean Corp Hgb Conc 33.1 g/dL (32-36); Mean Corpuscular Hgb 30.2 pg (27.0-32.0); Mean Corpuscular Volume 91.3 fL (80-94); Mean Platelet Vol. 8.6 fl (6.2-12.0); Monocyte# 0.58 X10^3/uL; Monocyte% 7.2 % (0-10); NRBC Flagged by Analyzer 0 % (0-5); Neutrophil # 5.74 X10^3/uL (2.7-7.7); Neutrophil % 71.4 % (47-70); Platelet Count 369 K/mm3 (150-450); RBC Distribution Width CV 13.9 % (11.6-14.6); RBC Distribution Width SD 46.5 fl (35.1-43.9); Red Blood Count 4.37 M/mm3 (4.6-6.2)
[2020-02-25 10:49] LABS: Anion Gap 3 (5-15); BUN 22 mg/dL (7-18); BUN/Creat Ratio 16.5 RATIO (10-20); Calcium,Total 8.8 mg/dL (8.5-10.1); Chloride 100 mmol/L (98-107); Creatinine, Serum 1.33 mg/dL (0.70-1.30); EST Glomerular Filtration Rate 58 mL/min (>60); Est Glom Filt Rate - Afr Amer 70 mL/min (>60); Estimated Creatinine Clearance 54.53 ml/min; Glucose 251 mg/dL (74-106); Potassium 5.3 mmol/L (3.5-5.1); Sodium Level 133 mmol/L (136-145)
[2020-02-25 11:03] VITALS: BP 170/84; PULSE 61; RESP 16; O2SAT 97
[2020-02-25 13:11] VITALS: BP 170/93; PULSE 63; RESP 19; O2SAT 99
[2020-02-25 14:17] VITALS: PULSE 70; RESP 16; O2SAT 98
== END 2020-02-25 14:17 | disposition home or self-care (01) ==
PROVIDERS: Emergency Provider Emergency Medicine; PCP Internal Medicine
DX: R07.9 Chest pain, unspecified (principal); I10 Essential (primary) hypertension; E10.40 Type 1 diabetes mellitus with diabetic neuropathy, unspecified; E78.2 Mixed hyperlipidemia; E03.9 Hypothyroidism, unspecified; Z79.4 Long term (current) use of insulin; Z79.82 Long term (current) use of aspirin; Z79.899 Other long term (current) drug therapy; Z87.891 Personal history of nicotine dependence
CPT/HCPCS: 71045; 80048; 84484; 85025; 93005; 99285

== ENCOUNTER → 2020-03-15 08:06 | Outpatient (CLI) | payer MEDICARE, SELFPAY ==
[2020-03-11 09:52] VITALS: BMI 27.1
[2020-03-15 10:36] LABS: ALB/GLOB Ratio 0.8 RATIO (0.9-2.4); AST(SGOT) 21 U/L (15-37); Alanine Aminotransfer ALT/SGPT 45 U/L (16-61); Albumin, Serum 3.4 g/dL (3.2-5.0); Alkaline Phosphatase 162 U/L (45-117); Anion Gap 4 (5-15); BUN 26 mg/dL (7-18); BUN/Creat Ratio 17.9 RATIO (10-20); Calcium,Total 8.7 mg/dL (8.5-10.1); Chloride 105 mmol/L (98-107); Cholesterol 281 mg/dL (200); Creatinine, Serum 1.45 mg/dL (0.70-1.30); EST Glomerular Filtration Rate 53 mL/min (>60); Est Glom Filt Rate - Afr Amer 64 mL/min (>60); Globulin 4.2 g/dL (2.2-4.2); Glucose 209 mg/dL (74-106); High Density Lipoprotein 64 mg/dL; Potassium 4.5 mmol/L (3.5-5.1); Protein, Total 7.6 g/dL (6.4-8.2); Sodium Level 138 mmol/L (136-145); Triglycerides 89 mg/dL; Very Low Density Lipoprotein 18 mg/dL (5-40)
[2020-03-15 10:40] LABS: Hemoglobin A1c 8.5 % (3.8-5.6)
== END ==
PROVIDERS: PCP Internal Medicine; Referring Provider Internal Medicine Endocrinology, Diabetes & Metabolism; Visit Provider Internal Medicine Endocrinology, Diabetes & Metabolism
DX: E10.65 Type 1 diabetes mellitus with hyperglycemia (principal); E78.2 Mixed hyperlipidemia; I10 Essential (primary) hypertension
CPT/HCPCS: 36415; 80053; 80061; 83036

== ENCOUNTER → 2020-04-18 09:14 | Outpatient (CLI) | payer MEDICARE, SELFPAY ==
[2020-03-11 09:52] VITALS: BMI 27.1
[2020-04-18 10:08] LABS: Hemoglobin A1c 8.7 % (3.8-5.6)
[2020-04-18 10:26] LABS: ALB/GLOB Ratio 0.8 RATIO (0.9-2.4); AST(SGOT) 17 U/L (15-37); Alanine Aminotransfer ALT/SGPT 37 U/L (16-61); Albumin, Serum 3.6 g/dL (3.2-5.0); Alkaline Phosphatase 154 U/L (45-117); Anion Gap 6 (5-15); BUN 28 mg/dL (7-18); BUN/Creat Ratio 20.7 RATIO (10-20); Chloride 102 mmol/L (98-107); Creatinine, Serum 1.35 mg/dL (0.70-1.30); EST Glomerular Filtration Rate 57 mL/min (>60); Est Glom Filt Rate - Afr Amer 69 mL/min (>60); Globulin 4.4 g/dL (2.2-4.2); Glucose 274 mg/dL (74-106); Potassium 5.2 mmol/L (3.5-5.1); Sodium Level 134 mmol/L (136-145); Thyroid Stim Hormone (TSH) 3.05 uIU/mL (0.358-3.74)
== END ==
PROVIDERS: PCP Internal Medicine; Referring Provider Internal Medicine Endocrinology, Diabetes & Metabolism; Visit Provider Internal Medicine Endocrinology, Diabetes & Metabolism
DX: E10.65 Type 1 diabetes mellitus with hyperglycemia (principal); E03.8 Other specified hypothyroidism
CPT/HCPCS: 36415; 80053; 83036; 84443

== ENCOUNTER → 2020-04-20 06:58 | Outpatient (CLI) | payer MEDICARE, SELFPAY ==
[2020-03-11 09:52] VITALS: BMI 27.1
--- NOTE | 2020-04-20 09:48 | STRESSREP ---
Stress Test Report Exercise myocardial perfusion stress test. 59-year-old male with a history of hypertension and chest pain. Stress protocol: Resting EKG demonstrates normal sinus rhythm with a rate of 76 bpm normal intervals are noted resting blood pressure is 152/80 mmHg. The patient exercised according to regular Bean protocol for a total duration of 8 minutes completing 2 minutes into stage III of the Bean protocol. The maximum heart rate attained was 131 bpm which was 82% of max impacted heart rate the maximum workload was 10 metabolic equivalents. At rest there were no ST or T wave changes noted to suggest ischemia at peak exercise there was approximately 1.[address] depression noted in leads V4, V5 and V6 suggestive but of ischemia. This rapidly returned to baseline. The test was terminated due to leg discomfort. The peak blood pressure was 184/72 mmHg with a rate-pressure product of 24,100. There was good blood pressure response to exercise. Myocardial perfusion protocol. 11.1 mCi of technetium 99m sestamibi was injected at rest. Patient exercised for a total duration of 8 minutes and at peak exercise 34.1 mCi of technetium 99m sestamibi was injected stress and rest images were reconstructed instructed and compared in the short axis vertical long horizontal long axis. Perfusion SPECT analysis: Review of the stress images demonstrate uptake of tracer noted in all areas of the myocardium the resting images similarly demonstrate normal uptake of tracer noted. All areas of the myocardium. No immediate areas are noted to suggest ischemia. No previous infarct is noted. Gated SPECT analysis: Gated ejection fraction is 57%. Conclusion: Exercise myocardial perfusion stress test with no nuclear images suggestive of ischemia. EKG changes concerning for ischemia. Preserved ejection fraction.
== END ==
LOC: CVS 06:59
PROVIDERS: PCP Internal Medicine; Referring Provider Internal Medicine; Visit Provider Internal Medicine
DX: R07.9 Chest pain, unspecified (principal)
CPT/HCPCS: 78452; 93017; A9500; A4216

== ENCOUNTER → 2020-05-04 09:12 | Outpatient (CLI) | payer MEDICARE, SELFPAY ==
[2020-04-27 09:33] VITALS: BMI 26.9
[2020-05-04 10:13] LABS: Absolute Lymphocyte Count 1.51 X10^3/uL (0.83-4.51); Absolute Neutrophil Count 4.9 X10^3/uL (2.0-7.7); Basophil# 0.04 X10^3/uL; Basophil% 0.6 % (0-1); Eosinophils% 2.8 % (0-5); Hematocrit 42.9 % (40-54); Lymphocyte # 1.51 X10^3/ul (4.0); Lymphocyte % 20.9 % (19-41); Mean Corp Hgb Conc 32.6 g/dL (32-36); Mean Corpuscular Volume 88.8 fL (80-94); Mean Platelet Vol. 8.6 fl (6.2-12.0); Monocyte# 0.54 X10^3/uL; Monocyte% 7.5 % (0-10); NRBC Flagged by Analyzer 0 % (0-5); Neutrophil # 4.91 X10^3/uL (2.7-7.7); Neutrophil % 67.8 % (47-70); Platelet Count 401 K/mm3 (150-450); RBC Distribution Width CV 14.1 % (11.6-14.6); RBC Distribution Width SD 45.8 fl (35.1-43.9); Red Blood Count 4.83 M/mm3 (4.6-6.2); White Blood Count 7.2 K/mm3 (4.4-11.0)
[2020-05-04 10:28] LABS: International Normalized Ratio 1.1; Prothrombin Time (Protime)PT. 13.5 SECONDS (11.7-14.9)
[2020-05-04 10:36] LABS: Anion Gap 6 (5-15); BUN 21 mg/dL (7-18); BUN/Creat Ratio 16.4 RATIO (10-20); Calcium,Total 8.8 mg/dL (8.5-10.1); Chloride 103 mmol/L (98-107); Creatinine, Serum 1.28 mg/dL (0.70-1.30); EST Glomerular Filtration Rate 61 mL/min (>60); Est Glom Filt Rate - Afr Amer 73 mL/min (>60); Glucose 117 mg/dL (74-106); Potassium 4.5 mmol/L (3.5-5.1); Sodium Level 138 mmol/L (136-145)
== END ==
PROVIDERS: PCP Internal Medicine; Referring Provider Physician Assistant Medical; Visit Provider Physician Assistant Medical
DX: R07.9 Chest pain, unspecified (principal); R94.39 Abnormal result of other cardiovascular function study; I10 Essential (primary) hypertension; E78.2 Mixed hyperlipidemia; E10.9 Type 1 diabetes mellitus without complications
CPT/HCPCS: 36415; 80048; 85025; 85610; 85730

== ENCOUNTER 2020-05-09 06:51 | Day surgery (SDC) | payer MEDICARE, SELFPAY ==
[2020-04-27 09:33] VITALS: BMI 26.9
[2020-05-06 08:44] VITALS: BMI 26.9
--- NOTE | 2020-05-09 08:00 | HP_ITS ---
HPI HPI History of Present Illness Details: This is a 59-year-old gentleman that presents here today for an abnormal stress test. He was last in our office in May 2019. He has a history of hypertension, hyperlipidemia, carotid artery disease, obstructive sleep apnea, diabetes. He was in the emergency room in February 2020 for left-sided chest pain. He did have 2 troponins, these were negative. He then presented to his PCP for a follow-up visit. She did obtain a stress test. Stress test demonstrated no nuclear images suggestive of ischemia however EKG changes concerning for ischemia. He is scheduled to have a diagnostic heart catheterization. He does have chest tightness on the left side of his chest. This has been going on for months. He does not have this the energy that he used to have while working outside. He does not have any worsening SOB. He does feel his heart beating harder when he is working hard. He have dizziness. This is not new. He does not have any edema. He does have pain in his legs when he walks. Intake Vital Signs 04/27/20 Height 5 ft 7 in 04/27/20 Weight: 172 lb 04/27/20 BMI 26.9 04/27/20 BP 171/91 H 04/27/20 Blood Pressure Location Lt brachial 04/27/20 Position Sitting 04/27/20 Respiration 18 04/27/20 Pulse 53 L 04/27/20 Pulse Source Monitor 04/27/20 Pulse Oximetry (%) 100 Intake Visit Reasons: H&P for heart cath Clean Room Operator Required: No Is patient in pain?: No Allergies latex Allergy (Unknown, Verified 04/27/20 09:28) Unknown adhesive Allergy (Verified 04/27/20 09:28) Rash Yavuirh-Iau-Ybu Reductase Inhibitor Adverse Reaction (Severe, Verified 04/27/20 09:28) muscle pain Medications blood sugar diagnostic See Dose Instructions .ROUTE .MEDSUPPLY #360 ea 05/29/18 [Rx Confirmed 03/11/20] aspirin 81 mg tablet,delayed release 81 mg PO DAILY 09/19/18 [History Confirmed 04/27/20] fluticasone propionate 50 mcg/actuation nasal spray,suspension 1 spray INTRANASAL DAILY PRN 09/19/18 [History Confirmed 04/27/20] sildenafil 100 mg tablet 50 mg PO DAILY PRN tab 09/19/18 [History Confirmed 04/27/20] blood pressure monitor See Rx Instructions .ROUTE .MEDSUPPLY #1 ea 01/05/19 [Rx Confirmed 03/11/20] amlodipine 10 mg tablet 10 mg PO DAILY #90 tab 05/06/19 [Rx Confirmed 04/27/20] hydrochlorothiazide 12.5 mg tablet 12.5 mg PO DAILY #90 tab 05/06/19 [Rx Confirmed 04/27/20] insulin glargine 100 unit/mL (3 mL) subcutaneous pen 30 unit SC HS ml 12/04/19 [History Confirmed 04/27/20] insulin lispro 100 unit/mL subcutaneous pen See Rx Instructions SC TID ml 12/04/19 [History Confirmed 04/27/20] losartan 100 mg tablet 100 mg PO DAILY #90 tab 12/04/19 [Rx Confirmed 04/27/20] omega-3 fatty acids 1,000 mg capsule 1,000 mg PO DAILY 12/04/19 [History Confirmed 04/27/20] metoprolol tartrate 50 mg tablet 50 mg PO BID #180 tab 01/01/20 [Rx Confirmed 04/27/20] cholecalciferol (vitamin D3) 50 mcg (2,000 unit) capsule 50 mcg PO DAILY 03/11/20 [History Confirmed 04/27/20] levothyroxine 137 mcg tablet 150 mcg PO DAILY tab 04/27/20 [History] [facility] Medical History Essential hypertension (Chronic) Mixed hyperlipidemia (Chronic) 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) Hypothyroidism (Chronic) Type 1 diabetes mellitus (Chronic) Abdominal pain (Chronic) Acquired plantar keratoderma (Chronic) BPH (benign prostatic hyperplasia) (Chronic) Back problem (Chronic) Bradycardia (Chronic) Carotid artery stenosis (Chronic) Decubitus ulcer of foot, stage 2 (Chronic) Diabetic foot ulcer associated with diabetes mellitus due to underlying condition (Chronic) Granuloma annulare (Chronic) Hearing problem (Chronic) Meniere's disease (Chronic) Sleep apnea (Chronic) High calcium levels (Resolved) Surgical History History of eye surgery (Resolved) History of removal of cyst (Resolved) Family History Mother Diabetes Myocardial infarction Heart disease High cholesterol Grandmother Parkinson disease Father Prostate cancer Grandfather COPD (chronic obstructive pulmonary disease) Social History (Updated 04/27/20 @ 11:25 by Marlena MA, PA) Smoking Status: Former smoker Smokeless tobacco user: chewing tobacco how long ago did patient quit smokin years ago second hand exposure: No alcohol intake: never substance use type: does not use ROS Const Const: Positive for fatigue; negative for weakness, fever(s) or headache(s) Eyes Eyes: Negative for blind spots, loss of peripheral vision or transient loss of vision ENT ENT: Positive for dizziness; negative for headache(s), tinnitus or Nosebleed/epistaxis Cardio Chest Pain: Yes Palpitations: No Edema: None Muscle aches with walking: None Resp Respiratory: Negative for SOB with activity, SOB at rest, SOB orthopnea\SOB lying down or Cough GI GI: Negative nausea, vomiting, heartburn or vomiting blood/hematemesis : Negative for hematuria Musc Musc: Negative for muscle aches/ myalgia Neuro Neuro: Positive for dizziness; negative for lightheadedness, near syncope, syncope, orthostatic symptoms, headache(s) or weakness Randy Hematologic/Lymphatic: Negative for easy bleeding Endo Endo: Positive for fatigue Cardiology Exam Const Appearance: cooperative, no acute distress and well developed Orientation: alert, awake and oriented x3 Head Head: normocephalic and atraumatic Mouth: moist mucous membranes Eyes General: appearance normal, both eyes and all related structures Conjunctivae: conjunctivae normal Pupils: PERRL EOM: EOM intact bilaterally Neck Neck: normal visual inspection, no lymphadenopathy and no JVD Carotids: Negative bruit Neck Mass: Negative Neck mass Chest Chest inspection: normal inspection of the chest and symmetric chest movement Auscultation: Bilateral: Clear to Auscultation Cardio Palpation: normal PMI Rate: regular rate Rhythm: regular rhythm Heart sounds: S1 normal and S2 normal; negative rub, gallop or murmur GI GI: normal to inspection, soft, no hepatosplenomegaly and bowel sounds present; negative tender Neuro General: alert, awake, oriented x3, CN's II-XI intact bilaterally and moves all extremities Extremities Pulses: Normal: Right Radial Pulse, Left Radial Pulse, Diminished: Right Posterior Tibial Pulse, Left Posterior Tibial Pulse Lower Extremity Edema: None: Bilateral Psych Psychological: normal affect Assessment & Plan 1. Abnormal nuclear stress test R94.39 Plan With patient's abnormal stress test and chest discomfort in addition to his type 1 diabetes would like to pursue a diagnostic heart catheterization. Patient is agreeable to proceed with this. Instructions were given Orders Orders: Basic Metabolic Profile (BMP) Today Partial Thromboplast Time Today Prothrombin Time w/INR Today CBC W/Diff, Automated Today 2. Essential hypertension I10 Plan Blood pressure slightly elevated today. For now we will not make any adjustments. He is on losartan, metoprolol amlodipine and aspirin. Orders Orders: Basic Metabolic Profile (BMP) Today Partial Thromboplast Time Today Prothrombin Time w/INR Today CBC W/Diff, Automated Today 3. Mixed hyperlipidemia E78.2 Plan Patient currently is not on any medications for this. Lipids are less than ideal. He has been intolerant to statins in the past. After his heart catheterization were further evaluate. He may be a candidate for Zetia or Repatha. Orders Orders: Basic Metabolic Profile (BMP) Today Partial Thromboplast Time Today Prothrombin Time w/INR Today CBC W/Diff, Automated Today Plan Detail Other Orders Orders: 12 Lead EKG performed by BMS Today R07.9 Basic Metabolic Profile (BMP) Today E10.9, R07.9 Partial Thromboplast Time Today E10.9, R07.9 Prothrombin Time w/INR Today E10.9, R07.9 CBC W/Diff, Automated Today E10.9, R07.9 Follow Up 6 Weeks (MMM) Coding Level of Care Code Off vis,est,level 4 Diagnoses Abnormal nuclear stress test R94.39 Essential hypertension I10 Mixed hyperlipidemia E78.2 Coding Level of Care Code Off vis,est,level 4 Diagnoses Abnormal nuclear stress test R94.39 Essential hypertension I10 Mixed hyperlipidemia E78.2 Supplemental Info Supplemental Information Echocardiogram 10/2019: Normal LV size. Left ventricular systolic function is normal. Mild concentric left ventricular hypertrophy. Trivial eccentric mitral valve insufficiency. Structurally normal valves. Stress Test Report 03/2020: Exercise myocardial perfusion stress test. 59-year-old male with a history of hypertension and chest pain. Stress protocol: Resting EKG demonstrates normal sinus rhythm with a rate of 76 bpm normal intervals are noted resting blood pressure is 152/80 mmHg. The patient exercised according to regular Bean protocol for a total duration of 8 minutes completing 2 minutes into stage III of the Bean protocol. The maximum heart rate attained was 131 bpm which was 82% of max impacted heart rate the maximum workload was 10 metabolic equivalents. At rest there were no ST or T wave changes noted to suggest ischemia at peak exercise there was approximately 1.[address] depression noted in leads V4, V5 and V6 suggestive but of ischemia. This rapidly returned to baseline. The test was terminated due to leg discomfort. The peak blood pressure was 184/72 mmHg with a rate-pressure product of 24,100. There was good blood pressure response to exercise. Myocardial perfusion protocol. 11.1 mCi of technetium 99m sestamibi was injected at rest. Patient exercised for a total duration of 8 minutes and at peak exercise 34.1 mCi of technetium 99m sestamibi was injected stress and rest images were reconstructed instructed and compared in the short axis vertical long horizontal long axis. Perfusion SPECT analysis: Review of the stress images demonstrate uptake of tracer noted in all areas of the myocardium the resting images similarly demonstrate normal uptake of tracer noted. All areas of the myocardium. No immediate areas are noted to suggest ischemia. No previous infarct is noted. Gated SPECT analysis: Gated ejection fraction is 57%. Conclusion: Exercise myocardial perfusion stress test with no nuclear images suggestive of ischemia. EKG changes concerning for ischemia. Preserved ejection fraction. Labs LDL Cholesterol 199 mg/dL (0-130) H 03/15/20 HDL Cholesterol 64 mg/dL (40-) 03/15/20 Triglycerides 89 mg/dL (-199) 03/15/20 VLDL Cholesterol 18 mg/dL (5-40) 03/15/20 Diagnostics Electrocardiogram 02/25/20 Echocardiogram 10/14/19 Stress Test Nuclear Medicine 04/20/20 Stress Test 04/20/20 Chest X-Ray 02/25/20
--- NOTE | 2020-05-09 09:25 | CL.D_ITS ---
Patient Name: BERE MENDOZA Study Date: 05/09/2020 Performing: Pop Castellanos MD Ht: 66.92 inches 170 cm : 1960 Wt: 171.96 lbs 78 kg Age: 59 Gender: male BSA: 1.89 PROCEDURE(S) PERFORMED UI92-GPB/COR/LV CLINICAL PROFILE AND INDICATIONS Indications: Suspected CAD Heart Failure: None Stress/Imaging Date: 04/20/20ress Test with SPECT MPI: Indeterminant CAD Presentations: Symptom unlikely to be ischemic. CONCLUSIONS Diffuse coronary artery disease with small vessels noted in the entire coronary vasculature. RECOMMENDATIONS Medical therapy DESCRIPTION OF PROCEDURE The patient arrived to the procedure lab. The risks and benefits of the procedure as well as a full d escription of our services here and current unavailability of surgical backup were fully explained to the patient and/or their significant other prior to the catheterization. The Timeout was completed, verifying the correct patient and procedure. The patient's procedural site was prepped and draped in the usual fashion. Local anesthetic was given subcutaneously to right radial region with Lidocaine 2% . Local anesthetic was given subcutaneously to right groin region with Lidocaine 2%. Using a modified Seldinger technique, arterial access was obtained via the right radial artery, a 6Fr sheath was inse rted., arterial access was obtained via the right femoral artery, a 5Fr sheath was inserted. Left Co ronary Artery selective angiography was performed in multiple views using a 5 Fr. JL4 catheter. Right Coronary Artery selective angiography was then performed in multiple views using a 5 Fr. 3DRC (John) catheter. Left Ventriculography was performed in FREIRE projection using a 5 Fr. Pigtail catheter. LV to AO pullback pressures were then recorded.Contrast was injected through the sheath an d the Right Iliac and Femoral artery were assessed for possible closure device.The femoral arterial s ibeth was pulled and a Mynx closure device was deployed for hemostasis. The radial arterial sheath wa s pulled and a TR Band was applied for hemostasis 10cc air inserted CORONARY ANGIOGRAPHY DOMINANCE: Right Dominant LEFT HEART ASSESSMENT Left Ventricular Ejection Fraction: by LV Gram 55 % Inferior Mid Hypokinesis - Moderate Normal Left Ventricular systolic function Peripheral vascular disease noted. Calcified ulnar noted. LEFT MAIN: Angiographically normal LEFT ANTERIOR DESCENDING ARTERY: Diffusely diseased up to 40 % CIRCUMFLEX ARTERY: Mild luminal irregularities less than 30% RAMUS: Mild luminal irregularities RIGHT CORONARY ARTERY: Mild luminal irregularities RT PDA: Proximal - Diffusely diseased up to 80 % COMPLICATIONS No Complications PROCEDURE MEDICATIONS Versed 1 mg IV Fentanyl 50 mcg IV Versed 1 mg IV Fentanyl 25 mcg IV Oxygen: 2 L/min via nasal cannula Baby Aspirin (81mg) 1 Tabs PO @ 05/09/2020 07:12:36 Heparin diluted in 23cc Heparinized saline. Patient given 10cc IA of this solution. 05/09/2020 08:41:3 9 Heparin diluted in 23cc Heparinized saline. Patient given 10cc IA of this solution. 05/09/2020 08:41:3 9 Verapamil 2.5mg, 2000 units of Heparin diluted in 23cc Heparinized saline. Patient given 10cc IA of this solution. 05/09/2020 08:41:39 SUMMARY OF HEMODYNAMIC DATA Time AIR REST ECG 07:14:54 Art 124/48 (76) 08:46:08 AO 134/55 (81) SA 08:55:28 LV 148/14, 22 09:03:02 LV 147/14, 24 09:03:08 LV 151/22, 31 09:04:26 LVp 150/17, 31 09:04:31 AOp 147/63 (93) 09:04:37 Signed By Pop Castellanos MD On 05/09/2020 09:24:03 Pop Castellanos MD
== END 2020-05-09 11:10 | disposition home or self-care (01) ==
LOC: CLSP 06:53
PROVIDERS: PCP Internal Medicine; Referring Provider Internal Medicine Cardiovascular Disease; Visit Provider Internal Medicine Cardiovascular Disease
DX: I25.10 Atherosclerotic heart disease of native coronary artery without angina pectoris (principal); I10 Essential (primary) hypertension; E78.2 Mixed hyperlipidemia; G47.33 Obstructive sleep apnea (adult) (pediatric); I65.29 Occlusion and stenosis of unspecified carotid artery; E10.40 Type 1 diabetes mellitus with diabetic neuropathy, unspecified; E03.9 Hypothyroidism, unspecified; N40.0 Benign prostatic hyperplasia without lower urinary tract symptoms; H81.09 Meniere's disease, unspecified ear; Z79.4 Long term (current) use of insulin; Z79.82 Long term (current) use of aspirin; Z79.899 Other long term (current) drug therapy; Z87.891 Personal history of nicotine dependence
CPT/HCPCS: 93458; 99152; 99153; C1760; J7040; C1769; C1894; Q9967

== ENCOUNTER 2020-05-12 15:49 | Outpatient (RCR) | payer MEDICARE, SELFPAY ==
[2020-05-06 08:44] VITALS: BMI 26.9
[2020-05-12] MEDS: COVID-19 VACC, MRNA(PFIZER)/PF 30 MCG/0.3 ML SYRINGE IM (17:45)
[2020-06-02] MEDS: COVID-19 VACC, MRNA(PFIZER)/PF 30 MCG/0.3 ML SYRINGE IM (17:38)
== END 2020-08-09 23:59 ==
LOC: IMMUN 15:49
PROVIDERS: PCP Internal Medicine; Visit Provider Family Medicine
DX: Z23 Encounter for immunization (principal)
CPT/HCPCS: 0001A; 0002A; 91300

== ENCOUNTER → 2020-05-31 08:17 | Outpatient (CLI) | payer MEDICARE, SELFPAY ==
[2020-05-06 08:44] VITALS: BMI 26.9
[2020-05-31 10:01] LABS: Absolute Lymphocyte Count 1.41 X10^3/uL (0.83-4.51); Absolute Neutrophil Count 5.3 X10^3/uL (2.0-7.7); Basophil# 0.02 X10^3/uL; Basophil% 0.3 % (0-1); Eosinophil# 0.21 X10^3/uL; Eosinophils% 2.8 % (0-5); Hematocrit 41.1 % (40-54); Hemoglobin 13.1 g/dL (13.0-16.5); Lymphocyte # 1.41 X10^3/ul (4.0); Lymphocyte % 18.6 % (19-41); Mean Corp Hgb Conc 31.9 g/dL (32-36); Mean Corpuscular Hgb 28.9 pg (27.0-32.0); Mean Corpuscular Volume 90.5 fL (80-94); Mean Platelet Vol. 9.3 fl (6.2-12.0); Monocyte# 0.57 X10^3/uL; Monocyte% 7.5 % (0-10); NRBC Flagged by Analyzer 0 % (0-5); Neutrophil # 5.34 X10^3/uL (2.7-7.7); Neutrophil % 70.4 % (47-70); Platelet Count 433 K/mm3 (150-450); RBC Distribution Width SD 46.4 fl (35.1-43.9); Red Blood Count 4.54 M/mm3 (4.6-6.2); White Blood Count 7.6 K/mm3 (4.4-11.0)
[2020-05-31 10:25] LABS: ALB/GLOB Ratio 0.8 RATIO (0.9-2.4); AST(SGOT) 10 U/L (15-37); Alanine Aminotransfer ALT/SGPT 30 U/L (16-61); Albumin, Serum 3.4 g/dL (3.2-5.0); Alkaline Phosphatase 136 U/L (45-117); Anion Gap 3 (5-15); BUN 29 mg/dL (7-18); BUN/Creat Ratio 20.3 RATIO (10-20); Chloride 104 mmol/L (98-107); Creatinine, Serum 1.43 mg/dL (0.70-1.30); EST Glomerular Filtration Rate 53 mL/min (>60); Est Glom Filt Rate - Afr Amer 65 mL/min (>60); Globulin 4.3 g/dL (2.2-4.2); Glucose 296 mg/dL (74-106); Potassium 4.7 mmol/L (3.5-5.1); Protein, Total 7.7 g/dL (6.4-8.2); Sodium Level 135 mmol/L (136-145)
[2020-06-04 20:07] LABS: Alkaline Phosphatase, Serum 131 IU/L (39-117); Bone Fraction 22 % (12-68); Liver Fraction 56 % (13-88); Testosterone, Free 11.75 ng/dL (5.00-21.00)
[2020-06-05 07:37] LABS: Intestinal Fraction 22 % (0-18); Testosterone, % Free 1.81 % (1.50-4.20); Testosterone, Total 649 ng/dL (264-916)
== END ==
PROVIDERS: PCP Internal Medicine; Referring Provider Internal Medicine Endocrinology, Diabetes & Metabolism; Visit Provider Internal Medicine Endocrinology, Diabetes & Metabolism
DX: E10.65 Type 1 diabetes mellitus with hyperglycemia (principal); E29.1 Testicular hypofunction; E03.8 Other specified hypothyroidism; E87.1 Hypo-osmolality and hyponatremia; R74.8 Abnormal levels of other serum enzymes
CPT/HCPCS: 36415; 80053; 84075; 84080; 84402; 84403; 84443; 85025

== ENCOUNTER → 2020-08-27 08:50 | Outpatient (CLI) | payer MEDICARE, SELFPAY ==
[2020-06-10 10:24] VITALS: BMI 28.1
--- NOTE | 2020-08-27 09:04 | US_ITS ---
EXAM: US ABDOMEN COMPLETE CLINICAL INDICATION: ABN LABS TECHNIQUE: Real-time ultrasound of the abdomen with image documentation. This report was created using [employer] report generation technology. COMPARISON: None. FINDINGS: LIVER: Unremarkable. There is normal echotexture. No focal hepatic lesion. No intrahepatic biliary ductal dilation. GALLBLADDER: Unremarkable. No shadowing gallstone. No gallbladder wall thickening is demonstrated. No pericholecystic fluid. Negative sonographic Tirado''s sign. COMMON BILE DUCT: Unremarkable as visualized. The proximal common bile duct is within normal limits for the patient''s age. PANCREAS: Atrophy of the pancreas. No pancreatic ductal dilatation. KIDNEYS: Simple anechoic cysts of the left kidney measuring up to 3.2 cm. No required imaging follow-up needed given high likelihood of benign nature. There is no hydronephrosis. No shadowing calculus. SPLEEN: Unremarkable. The spleen is normal in size and homogeneous in echotexture. AORTA: Limited evaluation of the abdominal aorta due to bowel gas. INFERIOR VENA CAVA: Unremarkable. The IVC is patent. FREE FLUID: There is no free fluid. US/Abdomen Complete IMPRESSION: No hepatic masses or biliary dilation. Electronically Signed: Josiah Olmedo MD ([place]) at 18:39 EDT , Service support ,
[2020-08-27 09:53] LABS: ALB/GLOB Ratio 0.8 RATIO (0.9-2.4); AST(SGOT) 20 U/L (15-37); Alanine Aminotransfer ALT/SGPT 35 U/L (16-61); Albumin, Serum 3.5 g/dL (3.2-5.0); Alkaline Phosphatase 115 U/L (45-117); BUN 25 mg/dL (7-18); BUN/Creat Ratio 18.2 RATIO (10-20); Calcium,Total 9.1 mg/dL (8.5-10.1); Cholesterol 308 mg/dL (200); Creatinine, Serum 1.37 mg/dL (0.70-1.30); EST Glomerular Filtration Rate 56 mL/min (>60); Est Glom Filt Rate - Afr Amer 68 mL/min (>60); Globulin 4.2 g/dL (2.2-4.2); Glucose 103 mg/dL (74-106); Protein, Total 7.7 g/dL (6.4-8.2); Triglycerides 147 mg/dL
[2020-08-27 09:54] LABS: Anion Gap 8 (5-15); Chloride 104 mmol/L (98-107); High Density Lipoprotein 61 mg/dL; Potassium 4.6 mmol/L (3.5-5.1); Sodium Level 138 mmol/L (136-145); Thyroid Stim Hormone (TSH) 2.14 uIU/mL (0.358-3.74); Very Low Density Lipoprotein 29 mg/dL (5-40)
[2020-08-27 10:35] LABS: Hemoglobin A1c 8.2 % (3.8-5.6)
[2020-08-27 11:10] LABS: Vitamin D,25 Hydroxy 38.3 ng/mL
== END ==
PROVIDERS: PCP Internal Medicine; Referring Provider Internal Medicine Endocrinology, Diabetes & Metabolism; Visit Provider Internal Medicine Endocrinology, Diabetes & Metabolism
DX: E10.65 Type 1 diabetes mellitus with hyperglycemia (principal); E78.2 Mixed hyperlipidemia; E03.8 Other specified hypothyroidism; E55.9 Vitamin D deficiency, unspecified; R74.8 Abnormal levels of other serum enzymes
CPT/HCPCS: 36415; 76700; 80053; 80061; 82306; 83036; 84443

== ENCOUNTER → 2020-10-24 13:45 | Outpatient (CLI) | payer MEDICARE, SELFPAY ==
[2020-10-24 16:19] LABS: Probe Check PASS; Specimen Processing Control PASS
== END ==
PROVIDERS: PCP Internal Medicine; Referring Provider Physician Assistant; Visit Provider Physician Assistant
DX: U07.1 COVID-19 (principal)
CPT/HCPCS: 87635; U0005; U0003

== ENCOUNTER 2020-11-07 19:35 | Emergency (ER) | payer MEDICARE, SELFPAY ==
[2020-11-07 19:36] VITALS: PULSE 51; RESP 18; TEMP 36; O2SAT 99; BMI 26.7
[2020-11-07 19:41] VITALS: BP 153/81
--- NOTE | 2020-11-07 21:42 | RAD_ITS ---
INDICATION: fall EXAMINATION/TECHNIQUE: X-RAY - LEFT XR Hip Unilateral with Pelvis when performed; 2-3 Views 3 VIEWS COMPARISON: None. FINDINGS: SOFT TISSUES: Extensive intimal calcifications bilateral iliac and femoral arteries. No radiopaque foreign body. BONES/JOINTS: No acute fracture or subluxation.. Normal alignment. Preservation of the joint space.. No sclerotic or destructive changes observed. RAD/HIP, UNI W/ Pelvis 2-3 Views IMPRESSION: No fracture or malalignment. Peripheral atherosclerosis. Electronically Signed: Pablito Almonte DO at 23:26 EDT Tel , Service support ,
--- NOTE | 2020-11-07 21:42 | CT_ITS ---
INDICATION: left lower rib fractures EXAMINATION: CT CHEST WITHOUT CONTRAST - CT Chest W/O Contrast Injection TECHNIQUE: Helically acquired images were obtained of the chest. A radiation dose optimization technique was used for this scan. IV Contrast dosage and agent: None. COMPARISON: CT abdomen and pelvis 01/30/2018. FINDINGS: Moderate motion artifact lungs bases decreases quality of exam. LUNGS, PLEURA AND LARGE AIRWAYS: Slight pleural thickening and overlying atelectasis left lower lobe, overlying rib fractures. No pneumothorax. THYROID: No thyroid lesions. HEART AND PERICARDIUM: Heart size is normal. No pericardial effusion. VESSELS: Intimal calcifications thoracic aortic arch. Dense calcifications versus stents coronary arteries. MEDIASTINUM AND JOSE DANIEL: No mediastinal or hilar adenopathy. Esophagus is unremarkable. No hiatal hernia. UPPER ABDOMEN: Left upper pole 2.2 cm hypodensity previously demonstrated to represent a cyst. There are extensive intimal calcifications abdominal aorta and branch vessels. BONES: Posterior left ninth and 10th ribs are fractured. No significant malalignment. There is some mild overlying pleural thickening and atelectasis. No pneumothorax. No suspicious pleural fluid collection. CT/Chest without Contrast IMPRESSION: Posterior ninth and 10th left rib fractures without malalignment. Minimal overlying pleural thickening and atelectasis. No pneumothorax. Extensive coronary artery and thoracic aortic and visualized abdominal aortic intimal calcifications. Coronary artery calcifications may be associated with increased risk for acute coronary syndrome. Electronically Signed: Pablito Almonte DO at 23:10 EDT Tel , Service support ,
--- NOTE | 2020-11-07 21:44 | EDS_ITS ---
HPI HPI - Fall History of Present Illness Chief Complaint: Fall Informant: patient and spouse/S.O. Occured/Mechanism Occurred: Yesterday Pain/Injury Pain Location: chest, pelvis and back Quality of Pain: Sharp Current Severity: Moderate Maximum Severity: Moderate Associated Symptoms Associated Symptoms: Negative for Parasthesias, Weakness, Loss of function, Inability to ambulate, Loss of consciousness and Amnesia Narrative Narrative: 59-year-old male was in the loft of his home near [facility] yesterday. He fell backwards hitting his lower rib cage and injuring his left hip. This occurred yesterday. He was taken to a local hospital down there. He said he had CAT scans ever extensively could not find any broken bones. He is actually feeling better today but he still complains of left lower anterior and posterior rib cage pain. And left hip pain. 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 Back problem BPH (benign prostatic hyperplasia) Bradycardia Carotid artery stenosis COVID-19 vaccine series completed Decubitus ulcer of foot, stage 2 Diabetic foot ulcer associated with diabetes mellitus due to underlying condition Essential hypertension Granuloma annulare Hearing problem High calcium levels Hypothyroidism Meniere's disease Mixed hyperlipidemia 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 Sleep apnea Type 1 diabetes mellitus Home Medications blood sugar diagnostic #360 ea 05/29/18 [Rx Last Taken Unknown] aspirin 81 mg tablet,delayed release 81 mg PO DAILY 09/19/18 [History Last Taken 05/09/20] sildenafil 100 mg tablet 50 mg PO DAILY PRN tab 09/19/18 [History Last Taken Unknown] insulin lispro 100 unit/mL subcutaneous pen See Rx Instructions SC TID ml 12/04/19 [History Last Taken Unknown] losartan 100 mg tablet 100 mg PO DAILY #90 tab 12/04/19 [Rx Last Taken Unknown] omega-3 fatty acids 1,000 mg capsule 1,000 mg PO DAILY 12/04/19 [History Last Taken Unknown] cholecalciferol (vitamin D3) 50 mcg (2,000 unit) capsule 50 mcg PO DAILY 03/11/20 [History Last Taken 05/09/20] gemfibrozil 600 mg tablet 600 mg PO BID #60 tablet 06/10/20 [Rx Last Taken Unknown] metoprolol tartrate 50 mg tablet 50 mg PO BID #180 tab 06/28/20 [Rx Last Taken Unknown] amlodipine 10 mg tablet 10 mg PO DAILY #90 tab 07/27/20 [Rx Last Taken Unknown] hydrochlorothiazide 12.5 mg tablet 12.5 mg PO DAILY #90 tab 07/27/20 [Rx Last Taken Unknown] insulin glargine 100 unit/mL (3 mL) subcutaneous pen 40 unit SC HS ml 09/09/20 [History Last Taken Unknown] levothyroxine 150 mcg tablet 150 mcg PO DAILY #90 tab 10/04/20 [Rx Last Taken Unknown] dextromethorphan-guaifenesin ER 60 mg-1,200 mg tab,extend release,12hr 1 tab PO Q12H PRN #14 tab 10/26/20 [Rx Last Taken Unknown] fluticasone propionate 50 mcg/actuation nasal spray,suspension 1 spray INTRANASAL DAILY PRN #16 g 10/26/20 [Rx Last Taken Unknown] hydrocodone-acetaminophen 1 tab PO Q4H PRN 5 Days #20 tab 11/07/20 [Rx Last Taken Unknown] Allergy/AdvReac Type Severity Reaction Status Date / Time latex Allergy Unknown Unknown Verified 11/07/20 19:41 adhesive Allergy Rash Verified 11/07/20 19:41 [id number] Reductase AdvReac Severe muscle pain Verified 11/07/20 19:41 Inhibitor Family History Mother Diabetes Myocardial infarction Heart disease High cholesterol Grandmother Parkinson disease Father Prostate cancer Grandfather COPD (chronic obstructive pulmonary disease) Surgical History History of eye surgery History of left heart catheterization (05/09/20) History of removal of cyst Social History Smoking Status: Former smoker Smokeless tobacco user: chewing tobacco how long ago did patient quit smokin years ago second hand exposure: No alcohol intake: never substance use type: does not use ROS ROS ED ROS Narrative Denies recent illness. Patient did have Covid 3 weeks ago. Review of Systems ROS Unobtainable: Denies due to encephalopathy Constitutional Constitutional ED: Denies chills or fever(s) Eyes Eyes: Denies change in vision ENT ENT ED: Denies ear pain or sore throat Cardiovascular Cardiovascular: Reports chest pain Respiratory/Chest Respiratory/Chest: Denies cough or dyspnea Gastrointestinal Gastrointestinal: Denies abdominal pain, diarrhea, nausea or vomiting Genitourinary Genitourinary ED: Denies dysuria or hematuria Musculoskeletal Musculoskeletal: Reports back pain; Denies arthralgias or myalgias Integumentary Denies abscess or rash Psychiatric Psychiatric: Denies depression Endocrine Endocrinology: Denies polyuria Hematologic/Lymphatic Hematologic/Lymphatic: Denies easy bruising Allergic/Immunologic Allergic/Immunologic ED: Denies urticaria EXAM Physical Exam Narrative Exam Narrative: Middle-age male no acute distress vital signs stable afebrile. Pulse ox 90% on room air no signs hypoxia. H EENT exam pupils are reactive light. Dentition intact. There is a small contusion left forehead. No bleeding no laceration. Scalp nontender. C-spine trachea nontender. Lungs clear to auscultation bilaterally. Abdomen soft nontender normal bowel sounds no peritoneal signs. Heart regular rhythm rate about 60 no murmur. Chest wall tender over left lower anterior ribs. And left posterior lower ribs. Back spine is nontender. He is moving all 4 extremities. He is slightly limited range of motion left hip due to pain. There is no shortening or rotation. He can dorsi and plantarflex both ankles and feet. He can flex and extend both knees. Right hip is nontender. Upper extremities are unremarkable. Back the spine is nontender his left posterior ribs on the lower aspect are tender. Neurologically is awake and alert with no focal motor deficits. GCS of 15. Const Vital Signs: 11/07/20 19:36 11/07/20 19:41 11/07/20 20:36 Temperature 96.8 F L Temperature Source Temporal Pulse Rate 51 L Respiratory Rate 18 Respiratory Effort Normal Non-Labored Blood Pressure 153/81 H Blood Pressure Mean 105 Pulse Ox 99 Oxygen Delivery Method Room Air 11/07/20 23:07 Temperature Temperature Source Pulse Rate 52 L Respiratory Rate 16 Respiratory Effort Blood Pressure 148/80 H Blood Pressure Mean 102 Pulse Ox 99 Oxygen Delivery Method Room Air Positive well nourished and well developed; Negative for obese, cachectic, contractures or unkempt General Appearance ED: well developed and NAD; Negative for unkempt, cachectic or contractures Nutritional Appearance: Negative for cachectic or obese HEENT Reports normocephalic HEENT Narrative: Contusion left forehead. trauma; Negative for tenderness Neck full ROM, no lymphadenopathy and supple General: Negative for tenderness Chest Wall inspection of chest normal; Negative for palpation of chest normal Chest Narrative: Left lower posterior ribs are tender. Resp normal respiratory effort, no retractions and clear to auscultation bilaterally Auscultation: Negative for rales, rhonchi or wheezes Cardio regular rate, regular rhythm, S1 normal heart sound, S2 normal heart sound and no murmurs GI non-tender, non-distended and no masses Inspection: Negative for abdominal distention Auscultation: normoactive bowel sounds Palpation: soft; Negative for guarding or rebound tenderness present Back/Spine no CVA tenderness General Back: Negative for CVA tenderness Cervical Spine: Negative for cervical spine tenderness Thoracic Spine / Upper Back: Negative for thoracic spinal tenderness Lumbar Spine / Lower Back: Negative for lumbar spinal tenderness Extremity normal to inspection and full ROM Extremity Narrative: Tenderness left hip with slightly decreased range of motion. No shortening or rotation. Neuro oriented x3, CN's II-XII intact bilaterally, moves all extremities and no focal motor deficits Sensorium / Orientation: alert, oriented to person, oriented to place and oriented to time; Negative for orientation impaired, confused, lethargic or stuporous Motor Exam: strength 5/5 throughout Psych mental status grossly normal and thought process normal Appearance: Negative for unkempt Attitude: No agitated Mood & Affect: Negative for depressed, anxious or tearful Skin Lesions: no lesions Rashes: no rashes MDM MDM MDM Narrative Medical decision making narrative: CAT scan the patient's ribs for a proximal fracture. X-ray of his left hip and pelvis. He reportedly had extensive work- up done in [place]. Repeat exam patient is doing well. I went over his x-rays with him. His left hip and pelvis x-ray showed no acute abnormality interpreted by myself. CT of the chest without contrast showed 1/9 and 10th posterior rib fracture as read by the radiologist reviewed by me. There is no pneumothorax. There is no pleural effusion. We were also able to obtain the CAT scans from the other emergency department he saw yesterday. They did not diagnose any rib fractures at that time. Radiography Diagnostic Testing: Radiology Impression Chest CT 11/07/20 21:42 IMPRESSION: Posterior ninth and 10th left rib fractures without malalignment. Minimal overlying pleural thickening and atelectasis. No pneumothorax. Extensive coronary artery and thoracic aortic and visualized abdominal aortic intimal calcifications. Coronary artery calcifications may be associated with increased risk for acute coronary syndrome. Electronically Signed: Pablito DO Suzy at 23:10 EDT Tel , Service support , Discharge Plan Triage Chief Complaint: Fall ED Provider: Indra Gasca Dx/Rx/DC Orders Clinical Impression: Fall, Fracture, ribs Instructions: ED Rib Fracture Prescriptions: New hydrocodone-acetaminophen 5-325 mg tablet 1 tab PO Q4H PRN (Reason: pain) 5 Days Qty: 20 RF: 0 No Action Lantus Solostar U-100 Insulin 100 unit/mL (3 mL) insulin pen 40 unit SC HS RF: 0 aspirin 81 mg tablet,delayed release (DR/EC) 81 mg PO DAILY RF: 0 sildenafil 100 mg tablet 50 mg PO DAILY PRN (Reason: Dizziness) RF: 0 omega-3 fatty acids [Fish Oil Concentrate] 1,000 mg capsule 1,000 mg PO DAILY RF: 0 Humalog KwikPen Insulin 100 unit/mL insulin pen See Rx Instructions SC TID RF: 0 losartan 100 mg tablet 100 mg PO DAILY Qty: 90 RF: 3 cholecalciferol (vitamin D3) 50 mcg (2,000 unit) capsule 50 mcg PO DAILY RF: 0 gemfibrozil 600 mg tablet 600 mg PO BID Qty: 60 RF: 1 (DME) OneTouch Ultra Blue Test Strip strip See Dose Instructions .ROUTE .MEDSUPPLY Qty: 360 RF: 3 metoprolol tartrate 50 mg tablet 50 mg PO BID Qty: 180 RF: 1 amlodipine 10 mg tablet 10 mg PO DAILY Qty: 90 RF: 3 hydrochlorothiazide 12.5 mg tablet 12.5 mg PO DAILY Qty: 90 RF: 3 levothyroxine 150 mcg tablet 150 mcg PO DAILY Qty: 90 RF: 0 fluticasone propionate 50 mcg/actuation spray,suspension 1 spray INTRANASAL DAILY PRN (Reason: nasal congestion) Qty: 16 RF: 0 dextromethorphan-guaifenesin 60-1,200 mg tablet extended release 12 hr 1 tab PO Q12H PRN (Reason: congestion, cough) Qty: 14 RF: 0 Primary Care Provider: Madhav Avendano Referrals: Madhav Avendano MD [Primary Care Provider] - 10-14 Days if not better Activity Restrictions/Additional Instructions: Your ninth and 10th rib on the left are broken. Your hip x-ray was unremarkable. Ice to your rib cage. Pillow to brace the ribs. [place] for pain. Motrin for pain. Disposition Disposition: Home, Self Care
[2020-11-07 23:07] VITALS: BP 148/80; PULSE 52; RESP 16; O2SAT 99
== END 2020-11-07 23:50 | disposition home or self-care (01) ==
PROVIDERS: Emergency Provider Emergency Medicine; PCP Internal Medicine
DX: S22.42XA Multiple fractures of ribs, left side, initial encounter for closed fracture (principal); W19.XXXA Unspecified fall, initial encounter; Y93.9 Activity, unspecified; Y92.008 Other place in unspecified non-institutional (private) residence as the place of occurrence of the external cause; Y99.9 Unspecified external cause status; I25.10 Atherosclerotic heart disease of native coronary artery without angina pectoris; I10 Essential (primary) hypertension; E03.9 Hypothyroidism, unspecified; E10.40 Type 1 diabetes mellitus with diabetic neuropathy, unspecified; E78.2 Mixed hyperlipidemia; Z79.4 Long term (current) use of insulin; Z79.82 Long term (current) use of aspirin; Z79.899 Other long term (current) drug therapy; Z86.16 Personal history of COVID-19; Z87.891 Personal history of nicotine dependence
CPT/HCPCS: 71250; 73502; 99281; 99282

== ENCOUNTER → 2021-01-13 10:22 | Outpatient (CLI) | payer MEDICARE, SELFPAY ==
[2021-01-13 12:51] LABS: Hemoglobin A1c 8.3 % (3.8-5.6)
[2021-01-13 13:07] LABS: ALB/GLOB Ratio 0.7 RATIO (0.9-2.4); AST(SGOT) 17 U/L (15-37); Alanine Aminotransfer ALT/SGPT 24 U/L (16-61); Alkaline Phosphatase 193 U/L (45-117); Anion Gap 4 (5-15); BUN 22 mg/dL (7-18); BUN/Creat Ratio 18.8 RATIO (10-20); Calcium,Total 8.9 mg/dL (8.5-10.1); Chloride 101 mmol/L (98-107); Cholesterol 288 mg/dL (200); Creatinine, Serum 1.17 mg/dL (0.70-1.30); EST Glomerular Filtration Rate 67 mL/min (>60); Est Glom Filt Rate - Afr Amer 81 mL/min (>60); Globulin 4.5 g/dL (2.2-4.2); Glucose 170 mg/dL (74-106); High Density Lipoprotein 60 mg/dL; Potassium 4.2 mmol/L (3.5-5.1); Protein, Total 7.5 g/dL (6.4-8.2); Sodium Level 134 mmol/L (136-145); Thyroid Stim Hormone (TSH) 2.99 uIU/mL (0.358-3.74); Triglycerides 151 mg/dL; Very Low Density Lipoprotein 30 mg/dL (5-40)
== END ==
PROVIDERS: PCP Internal Medicine; Referring Provider Internal Medicine; Visit Provider Internal Medicine
DX: E10.65 Type 1 diabetes mellitus with hyperglycemia (principal); E03.8 Other specified hypothyroidism; E78.2 Mixed hyperlipidemia; I10 Essential (primary) hypertension
CPT/HCPCS: 36415; 80053; 80061; 82043; 82570; 83036; 84443

== ENCOUNTER 2021-04-11 08:12 | Outpatient (CLI) | payer MEDICARE, SELFPAY ==
[2021-04-11 10:22] LABS: ALB/GLOB Ratio 0.7 RATIO (0.9-2.4); AST(SGOT) 16 U/L (15-37); Alanine Aminotransfer ALT/SGPT 27 U/L (16-61); Albumin, Serum 2.9 g/dL (3.2-5.0); Alkaline Phosphatase 151 U/L (45-117); Anion Gap 6 (5-15); BUN 23 mg/dL (7-18); BUN/Creat Ratio 16.2 RATIO (10-20); Calcium,Total 9.1 mg/dL (8.5-10.1); Chloride 102 mmol/L (98-107); Creatinine, Serum 1.42 mg/dL (0.70-1.30); EST Glomerular Filtration Rate 54 mL/min (>60); Est Glom Filt Rate - Afr Amer 65 mL/min (>60); Globulin 4.2 g/dL (2.2-4.2); Glucose 130 mg/dL (74-106); Protein, Total 7.1 g/dL (6.4-8.2); Sodium Level 136 mmol/L (136-145)
[2021-04-13 15:08] LABS: Alkaline Phosphatase, Serum 150 IU/L (44-121); Bone Fraction 30 % (12-68); Liver Fraction 53 % (13-88); PROEL- Albumin 3.3 g/dL (2.9-4.4); PROEL- Alpha-1 Globulin 0.2 g/dL (0.0-0.4); PROEL- Alpha-2 Globulin 0.8 g/dL (0.4-1.0); PROEL- Beta Globulin 1.3 g/dL (0.7-1.3); PROEL- Gamma Globulin 1.1 g/dL (0.4-1.8); PROEL- Globulin, Total 3.4 g/dL (2.2-3.9); PROEL- TOTAL PROTEIN 6.7 g/dL (6.0-8.5); PROELU- Albumin, Urine 74.2 % (.); PROELU- Alpha-1-Globulin,Ur 6.6 % (.); PROELU- Alpha-2-Globulin,Ur 3.6 % (.); PROELU- Beta Globulin, Ur 10.8 % (.); PROELU- Gamma Globulin, Ur 4.9 % (.); Total Protein, Ur 146.3 mg/dL (Not Estab.)
[2021-04-13 16:43] LABS: Intestinal Fraction 18 % (0-18)
== END 2021-04-11 23:59 | disposition home or self-care (01) ==
LOC: MTLAB 08:13
PROVIDERS: PCP Internal Medicine; Referring Provider Internal Medicine Endocrinology, Diabetes & Metabolism; Visit Provider Internal Medicine Endocrinology, Diabetes & Metabolism
DX: E10.65 Type 1 diabetes mellitus with hyperglycemia (principal)
CPT/HCPCS: 36415; 80053; 84075; 84080; 84165; 84166

== ENCOUNTER 2021-06-08 08:37 | Outpatient (CLI) | payer MEDICARE, SELFPAY ==
[2021-06-08 10:57] LABS: AST(SGOT) 22 U/L (15-37); Alanine Aminotransfer ALT/SGPT 41 U/L (16-61); Albumin, Serum 3.2 g/dL (3.2-5.0); Alkaline Phosphatase 145 U/L (45-117); Anion Gap 6 (5-15); BUN 24 mg/dL (7-18); BUN/Creat Ratio 16.8 RATIO (10-20); Bilirubin, Direct 0.08 mg/dL (0.00-0.30); Calcium,Total 8.7 mg/dL (8.5-10.1); Chloride 101 mmol/L (98-107); Creatinine, Serum 1.43 mg/dL (0.70-1.30); EST Glomerular Filtration Rate 53 mL/min (>60); Est Glom Filt Rate - Afr Amer 64 mL/min (>60); Ferritin 140 ng/mL (26-388); GGTP 39 U/L (15-85); Globulin 4.3 g/dL (2.2-4.2); Glucose 110 mg/dL (74-106); Protein, Total 7.5 g/dL (6.4-8.2); Sodium Level 134 mmol/L (136-145)
[2021-06-13 12:00] LABS: Alkaline Phosphatase, Serum 151 IU/L (44-121); Bone Fraction 28 % (12-68); Liver Fraction 42 % (13-88); PROEL- Albumin 3.4 g/dL (2.9-4.4); PROEL- Alpha-1 Globulin 0.3 g/dL (0.0-0.4); PROEL- Alpha-2 Globulin 0.8 g/dL (0.4-1.0); PROEL- Beta Globulin 1.3 g/dL (0.7-1.3); PROEL- Gamma Globulin 1.1 g/dL (0.4-1.8); PROEL- Globulin, Total 3.5 g/dL (2.2-3.9); PROEL- TOTAL PROTEIN 6.9 g/dL (6.0-8.5); PROELU- Albumin, Urine 71.2 % (.); PROELU- Alpha-1-Globulin,Ur 4.7 % (.); PROELU- Beta Globulin, Ur 12.3 % (.); PROELU- Gamma Globulin, Ur 6.8 % (.); Total Protein, Ur 154.5 mg/dL (Not Estab.)
[2021-06-13 13:16] LABS: Intestinal Fraction 30 % (0-18)
[2021-06-13 16:06] LABS: ANTINUCLEAR ANTIBODIES DIRECT Negative (Negative); Anti-Mitochondrial AB <20.0 Units (0.0-20.0)
== END 2021-06-08 23:59 | disposition home or self-care (01) ==
PROVIDERS: Nurse Practitioner Gerontology; PCP Internal Medicine; Referring Provider Internal Medicine Endocrinology, Diabetes & Metabolism; Visit Provider Internal Medicine Endocrinology, Diabetes & Metabolism
DX: R74.8 Abnormal levels of other serum enzymes (principal); R77.9 Abnormality of plasma protein, unspecified; R80.8 Other proteinuria; K75.9 Inflammatory liver disease, unspecified
CPT/HCPCS: 36415; 80048; 80076; 82728; 82977; 83516; 84075; 84080; 84165; 84166; 86038

== ENCOUNTER → 2021-10-30 | Outpatient (CLI) | payer MEDICARE, SELFPAY ==
[2021-10-30 12:27] LABS: Hemoglobin A1c 9.4 % (3.8-5.6)
[2021-10-30 12:34] LABS: ALB/GLOB Ratio 0.7 RATIO (0.9-2.4); AST(SGOT) 21 U/L (15-37); Alanine Aminotransfer ALT/SGPT 31 U/L (16-61); Albumin, Serum 2.9 g/dL (3.2-5.0); Alkaline Phosphatase 141 U/L (45-117); Anion Gap 6 (5-15); BUN 21 mg/dL (7-18); BUN/Creat Ratio 15.8 RATIO (10-20); Calcium,Total 8.5 mg/dL (8.5-10.1); Chloride 101 mmol/L (98-107); Cholesterol 274 mg/dL (200); Creatinine, Serum 1.33 mg/dL (0.70-1.30); EST Glomerular Filtration Rate 58 mL/min (>60); Est Glom Filt Rate - Afr Amer 70 mL/min (>60); Globulin 4.1 g/dL (2.2-4.2); Glucose 195 mg/dL (74-106); High Density Lipoprotein 63 mg/dL; Sodium Level 136 mmol/L (136-145); Thyroid Stim Hormone (TSH) 1.07 uIU/mL (0.358-3.74); Triglycerides 98 mg/dL; Very Low Density Lipoprotein 20 mg/dL (5-40)
[2021-10-30 12:59] LABS: Microalbumin:Creatinine Ratio 3362.3 mg/g CRE (<30 mg/g CRE)
== END | disposition home or self-care (01) ==
LOC: MTLAB 09:35
PROVIDERS: PCP Internal Medicine; Referring Provider Internal Medicine Endocrinology, Diabetes & Metabolism; Visit Provider Internal Medicine Endocrinology, Diabetes & Metabolism
DX: E10.65 Type 1 diabetes mellitus with hyperglycemia (principal); E78.2 Mixed hyperlipidemia; E03.8 Other specified hypothyroidism
CPT/HCPCS: 36415; 80053; 80061; 82043; 82570; 83036; 84443

== ENCOUNTER → 2021-12-29 | Outpatient (CLI) | payer MEDICARE, SELFPAY ==
[2021-12-29 12:42] LABS: Hemoglobin A1c 9.1 % (3.8-5.6)
[2021-12-29 12:53] LABS: ALB/GLOB Ratio 0.8 RATIO (0.9-2.4); AST(SGOT) 28 U/L (15-37); Alanine Aminotransfer ALT/SGPT 53 U/L (16-61); Alkaline Phosphatase 169 U/L (45-117); Anion Gap 5 (5-15); BUN 25 mg/dL (7-18); BUN/Creat Ratio 15.5 RATIO (10-20); Calcium,Total 8.8 mg/dL (8.5-10.1); Chloride 102 mmol/L (98-107); Cholesterol 227 mg/dL (200); Creatinine, Serum 1.61 mg/dL (0.70-1.30); EST Glomerular Filtration Rate 46 mL/min (>60); Est Glom Filt Rate - Afr Amer 56 mL/min (>60); Glucose 223 mg/dL (74-106); High Density Lipoprotein 67 mg/dL; Potassium 5.2 mmol/L (3.5-5.1); Sodium Level 132 mmol/L (136-145); Thyroid Stim Hormone (TSH) 2.54 uIU/mL (0.358-3.74); Triglycerides 98 mg/dL; Very Low Density Lipoprotein 20 mg/dL (5-40)
== END | disposition home or self-care (01) ==
LOC: MTLAB 09:44
PROVIDERS: PCP Internal Medicine; Referring Provider Nurse Practitioner Gerontology; Visit Provider Nurse Practitioner Gerontology
DX: E78.2 Mixed hyperlipidemia (principal); E10.65 Type 1 diabetes mellitus with hyperglycemia; I10 Essential (primary) hypertension; E03.8 Other specified hypothyroidism
CPT/HCPCS: 36415; 80053; 80061; 82043; 83036; 84443

== ENCOUNTER → 2022-01-01 | Outpatient (CLI) | payer MEDICARE, SELFPAY ==
[2022-01-01 09:50] LABS: Anion Gap 7 (5-15); BUN 33 mg/dL (7-18); BUN/Creat Ratio 21.7 RATIO (10-20); Calcium,Total 9.3 mg/dL (8.5-10.1); Chloride 98 mmol/L (98-107); Creatinine, Serum 1.52 mg/dL (0.70-1.30); EST Glomerular Filtration Rate 50 mL/min (>60); Est Glom Filt Rate - Afr Amer 60 mL/min (>60); Glucose 300 mg/dL (74-106); Potassium 5.2 mmol/L (3.5-5.1); Sodium Level 134 mmol/L (136-145)
== END | disposition home or self-care (01) ==
LOC: LAB 09:16
PROVIDERS: PCP Internal Medicine; Referring Provider Nurse Practitioner Gerontology; Visit Provider Nurse Practitioner Gerontology
DX: I10 Essential (primary) hypertension (principal)
CPT/HCPCS: 36415; 80048

== ENCOUNTER → 2022-01-06 | Outpatient (CLI) | payer MEDICARE, SELFPAY ==
[2022-01-06 11:26] LABS: Microalbumin:Creatinine Ratio 757.8 mg/g CRE (<30 mg/g CRE)
[2022-01-06 11:33] LABS: ALB/GLOB Ratio 0.7 RATIO (0.9-2.4); AST(SGOT) 18 U/L (15-37); Alanine Aminotransfer ALT/SGPT 37 U/L (16-61); Albumin, Serum 2.9 g/dL (3.2-5.0); Alkaline Phosphatase 149 U/L (45-117); Anion Gap 7 (5-15); BUN 43 mg/dL (7-18); BUN/Creat Ratio 23.8 RATIO (10-20); Chloride 100 mmol/L (98-107); Creatinine, Serum 1.81 mg/dL (0.70-1.30); EST Glomerular Filtration Rate 40 mL/min (>60); Est Glom Filt Rate - Afr Amer 49 mL/min (>60); Glucose 450 mg/dL (74-106); Potassium 5.3 mmol/L (3.5-5.1); Protein, Total 6.9 g/dL (6.4-8.2); Sodium Level 133 mmol/L (136-145)
== END | disposition home or self-care (01) ==
LOC: LAB 09:44
PROVIDERS: Physician Assistant Medical; PCP Internal Medicine; Visit Provider Nurse Practitioner Gerontology
DX: E10.65 Type 1 diabetes mellitus with hyperglycemia (principal)
CPT/HCPCS: 36415; 80053; 82043; 82570

== ENCOUNTER → 2022-01-22 | Outpatient (CLI) | payer MEDICARE, SELFPAY ==
--- NOTE | 2022-01-22 08:53 | RDU_ITS ---
Reason For Study: HTN Right Renal Artery Left Renal Artery Right renal artery ostium 351/70 Left renal artery ostium 112/22 RSV/EDV. PSV/EDV. Right renal artery proximal 284/66 Left renal artery proximal PSV/EDV PSV/EDV. 104/16 . Right renal artery mid 158/39 Left renal artery mid 104/20 PSV/EDV. PSV/EDV . Right renal artery distal 75/18 Left renal artery distal 103/25 PSV/EDV. PSV/EDV. Right RAR 4.4. Left RAR 1.4. Right Renal Parenchyma Left Renal Parenchyma Upper Pole Medula 40/7 PSV/EDV. Left upper pole medulla 39/12 Right upper pole medulla EDR 0.18 . PSV/EDV . Right upper pole medulla R.I. Left upper pole medulla EDR 0.31 . 0.83 . Left upper pole medulla R.I. 0.69 . Upper [place] Cortx 27/4 PSV/EDV. UP Cortex 25/6 PSV/EDV. Right upper pole cortex EDR 0.15 . Left upper pole cortex EDR 0.24 . Right upper pole cortex R.I. 0.84 . Left upper pole cortex R.I. 0.76 . Right lower Pole medulla 37/7 Left lower Pole medulla 48/10 PSV/EDV . PSV/EDV . Right lower pole medulla EDR 0.19 . Left lower pole medulla EDR 0.21 . Right lower pole medulla R.I. Left lower pole medulla R.I. 0.80 . 0.81 . Lower Pole Cortx 21/7 PSV/EDV. Lower Pole Cortex 24/5 PSV/EDV. Left lower pole cortex EDR 0.33 . Right lower pole cortex EDR 0.21 . Left lower pole cortex R.I. 0.68 . Right lower pole cortex R.I. 0.81 . Left Renal Hilar Right Renal Hilar LT Hilar avg 115/20 PSV/EDV . Right Hilar avg 186/44 PSV/EDV. Left hilar acceleration time 50 Right hilar acceleration time 50 m/sec. m/sec. Left Renal Dimensions Right Renal Dimensions Left kidney size 12.03 cm . Right kidney size 11.50 cm . Left cortical dimension 1.72 cm . Right cortical dimension 1.40 cm . Aorta Proximal abdominal aorta 1.72cm x 1.75 cm . Proximal abdominal aorta peak systolic velocity is 80 cm/sec . Distal abdominal aorta 1.26cm x 1.56 cm . Distal abdominal aorta peak systolic velocity is 79 cm/sec . Procedures Technically difficult study. VL/Renal Artery Duplex Ultrasound Interpretation Summary The right renal artery has hemodynamically significant stenosis, greater than 6 0%. The left renal artery is patent with normal velocities The right renal vein is patent The left renal vein is patent The right kidney is normal in size. The left kidney is normal in size. Ordering Physician: Susie Bentley Referring Physician: Madhav Avendano Performed By: Caren Porter, CAITLIN, RVT
== END | disposition home or self-care (01) ==
LOC: CVS 08:53
PROVIDERS: PCP Internal Medicine; Referring Provider Nurse Practitioner Gerontology; Visit Provider Nurse Practitioner Gerontology
DX: I10 Essential (primary) hypertension (principal)
CPT/HCPCS: 93975

== ENCOUNTER → 2022-01-26 | Outpatient (CLI) | payer MEDICARE, SELFPAY ==
[2022-01-26 11:42] LABS: Absolute Lymphocyte Count 1.26 X10^3/uL (0.83-4.51); Absolute Neutrophil Count 5.6 X10^3/uL (2.0-7.7); Basophil# 0.04 X10^3/uL; Basophil% 0.5 % (0-1); Eosinophil# 0.22 X10^3/uL; Eosinophils% 2.8 % (0-5); Hematocrit 37.9 % (40-54); Hemoglobin 12.7 g/dL (13.0-16.5); Lymphocyte # 1.26 X10^3/ul (0.83-4.51); Lymphocyte % 16.2 % (19-41); Mean Corp Hgb Conc 33.5 g/dL (32-36); Mean Corpuscular Hgb 30.8 pg (27.0-32.0); Mean Corpuscular Volume 91.8 fL (80-94); Mean Platelet Vol. 9.1 fl (6.2-12.0); Monocyte# 0.64 X10^3/uL; Monocyte% 8.2 % (0-10); NRBC Flagged by Analyzer 0 % (0-5); Neutrophil # 5.58 X10^3/uL (2.7-7.7); Platelet Count 395 K/mm3 (150-450); RBC Distribution Width CV 13.5 % (11.6-14.6); RBC Distribution Width SD 45.7 fl (35.1-43.9); Red Blood Count 4.13 M/mm3 (4.6-6.2); White Blood Count 7.8 K/mm3 (4.4-11.0)
[2022-01-26 12:01] LABS: Albumin, Serum 3.2 g/dL (3.2-5.0); BUN 21 mg/dL (7-18); BUN/Creat Ratio 15.1 RATIO (10-20); Calcium,Total 9.2 mg/dL (8.5-10.1); Chloride 103 mmol/L (98-107); Creatinine, Serum 1.39 mg/dL (0.70-1.30); EST Glomerular Filtration Rate 55 mL/min (>60); Est Glom Filt Rate - Afr Amer 66 mL/min (>60); Glucose 235 mg/dL (74-106); Phosphorus 3.7 mg/dL (2.5-4.9); Potassium 5.2 mmol/L (3.5-5.1); Sodium Level 136 mmol/L (136-145)
[2022-01-26 12:16] LABS: Protein:Creat Ratio 3165 mg/g CRE (0-200)
== END | disposition home or self-care (01) ==
LOC: MTLAB 09:20
PROVIDERS: PCP Internal Medicine; Referring Provider Nurse Practitioner Gerontology; Visit Provider Nurse Practitioner Gerontology
DX: N18.2 Chronic kidney disease, stage 2 (mild) (principal)
CPT/HCPCS: 36415; 80069; 82570; 84156; 85025

== ENCOUNTER → 2022-05-01 | Outpatient (CLI) | payer MEDICARE, SELFPAY ==
[2022-05-01 12:22] LABS: Hemoglobin 12.3 g/dL (13.0-16.5); Mean Corp Hgb Conc 32.4 g/dL (32-36); Mean Corpuscular Hgb 29.6 pg (27.0-32.0); Mean Corpuscular Volume 91.6 fL (80-94); Mean Platelet Vol. 9.7 fl (6.2-12.0); Platelet Count 357 K/mm3 (150-450); RBC Distribution Width CV 13.7 % (11.6-14.6); RBC Distribution Width SD 46.5 fl (35.1-43.9); Red Blood Count 4.15 M/mm3 (4.6-6.2); White Blood Count 6.9 K/mm3 (4.4-11.0)
[2022-05-01 12:31] LABS: Protein, Urine (Random) 230.3 mg/dL (<11.9); Protein:Creat Ratio 3087 mg/g CRE (0-200)
[2022-05-01 13:04] LABS: PTHIN 55.5 pg/mL (18.4-80.1)
[2022-05-01 13:21] LABS: ALB/GLOB Ratio 0.8 RATIO (0.9-2.4); AST(SGOT) 15 U/L (15-37); Alanine Aminotransfer ALT/SGPT 22 U/L (16-61); Albumin, Serum 2.8 g/dL (3.2-5.0); Alkaline Phosphatase 127 U/L (45-117); Anion Gap 7 (5-15); BUN 23 mg/dL (7-18); BUN/Creat Ratio 14.6 RATIO (10-20); Calcium,Total 8.4 mg/dL (8.5-10.1); Chloride 102 mmol/L (98-107); Creatinine, Serum 1.58 mg/dL (0.70-1.30); EST Glomerular Filtration Rate 47 mL/min (>60); Est Glom Filt Rate - Afr Amer 57 mL/min (>60); Globulin 3.7 g/dL (2.2-4.2); Glucose 223 mg/dL (74-106); Phosphorus 3.7 mg/dL (2.5-4.9); Potassium 4.3 mmol/L (3.5-5.1); Protein, Total 6.5 g/dL (6.4-8.2); Sodium Level 137 mmol/L (136-145)
[2022-05-01 13:45] LABS: Hemoglobin A1c 8.2 % (3.8-5.6)
== END | disposition home or self-care (01) ==
LOC: MTLAB 09:38
PROVIDERS: Urology; PCP Internal Medicine; Referring Provider Internal Medicine Endocrinology, Diabetes & Metabolism; Visit Provider Internal Medicine Endocrinology, Diabetes & Metabolism
DX: E10.65 Type 1 diabetes mellitus with hyperglycemia (principal); E11.22 Type 2 diabetes mellitus with diabetic chronic kidney disease; R80.9 Proteinuria, unspecified; N18.2 Chronic kidney disease, stage 2 (mild); Z12.5 Encounter for screening for malignant neoplasm of prostate; Z80.42 Family history of malignant neoplasm of prostate; E03.8 Other specified hypothyroidism
CPT/HCPCS: 36415; 80053; 82570; 83036; 83970; 84100; 84153; 84156; 84443; 85027; G0103

== ENCOUNTER → 2022-09-28 | Outpatient (CLI) | payer MEDICARE, SELFPAY ==
[2022-09-28 10:29] LABS: Hemoglobin A1c 9.6 % (3.8-5.6)
[2022-09-28 10:32] LABS: Vitamin D,25 Hydroxy 43.9 ng/mL
[2022-09-28 11:04] LABS: ALB/GLOB Ratio 0.7 RATIO (0.9-2.4); AST(SGOT) 12 U/L (15-37); Alanine Aminotransfer ALT/SGPT 26 U/L (16-61); Albumin, Serum 2.9 g/dL (3.2-5.0); Alkaline Phosphatase 164 U/L (45-117); Anion Gap 2 (5-15); BUN 27 mg/dL (7-18); Calcium,Total 8.6 mg/dL (8.5-10.1); Chloride 103 mmol/L (98-107); Creatinine, Serum 1.69 mg/dL (0.70-1.30); EST Glomerular Filtration Rate 44 mL/min (>60); Est Glom Filt Rate - Afr Amer 53 mL/min (>60); Globulin 4.1 g/dL (2.2-4.2); Glucose 263 mg/dL (74-106); Potassium 4.7 mmol/L (3.5-5.1); Sodium Level 135 mmol/L (136-145)
== END | disposition home or self-care (01) ==
LOC: MTLAB 07:35
PROVIDERS: PCP Internal Medicine; Referring Provider Internal Medicine Endocrinology, Diabetes & Metabolism; Visit Provider Internal Medicine Endocrinology, Diabetes & Metabolism
DX: E10.65 Type 1 diabetes mellitus with hyperglycemia (principal); E55.9 Vitamin D deficiency, unspecified; I10 Essential (primary) hypertension
CPT/HCPCS: 80053; 82306; 83036

== ENCOUNTER → 2022-11-27 | Outpatient (CLI) | payer MEDICARE, SELFPAY ==
[2022-11-27 10:53] LABS: ALB/GLOB Ratio 0.7 RATIO (0.9-2.4); AST(SGOT) 15 U/L (15-37); Alanine Aminotransfer ALT/SGPT 23 U/L (16-61); Albumin, Serum 2.8 g/dL (3.2-5.0); Alkaline Phosphatase 131 U/L (45-117); Anion Gap 5 (5-15); BUN 25 mg/dL (7-18); BUN/Creat Ratio 15.7 RATIO (10-20); Calcium,Total 8.1 mg/dL (8.5-10.1); Chloride 105 mmol/L (98-107); Creatinine, Serum 1.59 mg/dL (0.70-1.30); EST Glomerular Filtration Rate 47 mL/min (>60); Est Glom Filt Rate - Afr Amer 57 mL/min (>60); Globulin 3.8 g/dL (2.2-4.2); Glucose 163 mg/dL (74-106); Potassium 4.9 mmol/L (3.5-5.1); Protein, Total 6.6 g/dL (6.4-8.2); Sodium Level 134 mmol/L (136-145)
[2022-11-27 10:58] LABS: Protein, Urine (Random) 138.4 mg/dL (<11.9); Protein:Creat Ratio 2186 mg/g CRE (0-200)
== END | disposition home or self-care (01) ==
LOC: MTLAB 08:28
PROVIDERS: PCP Internal Medicine; Referring Provider Internal Medicine Nephrology; Visit Provider Internal Medicine Nephrology
DX: E10.65 Type 1 diabetes mellitus with hyperglycemia (principal); E10.22 Type 1 diabetes mellitus with diabetic chronic kidney disease; N18.2 Chronic kidney disease, stage 2 (mild)
CPT/HCPCS: 36415; 80053; 82570; 83036; 84156

== ENCOUNTER → 2023-04-01 | Outpatient (CLI) | payer MEDICARE, SELFPAY ==
--- OUTSIDE RECORDS SUMMARY | 2023-04-01 12:01 | XMS RPT_ITS | CCD ---
Author Name Unknown Address [address] [place] [address] Organization [facility] Results Test Name Value Interpretation Reference Range Facil ity Summary Purpose Family History No Family History Records Found Advance Directives No Advanced Directives Records Found Additional Source Comments (unrecognized sect ion and content) No Status Records Found INFORMATION SOURCE (unrecogn ized section and content) FOR RECORDS PERTAINING TO PATIENTS WHO ARE OR HAVE BEEN ENROLLED IN A CHEMICAL DEPENDENCY/SUBSTANCEABUSE PROGRAM, SOME INFORMATION MAY BE OMITTED. This clinical summary was aggregated from multiple sources. Caution should be exercised in using it in the provision of clinical care. This summary normalizes information from multiple sources, and as a consequence, information in this document may materially change the coding, format and clinical context of patient data. In addition, data may be omitted in some cases. CLINICAL DECISIONS SHOULD BE BASED ON THE PRIMARY CLINICAL RECORDS. [employer] provides no warranty or guarantee of the accuracy or completeness of information in this document.
[2023-04-01 15:05] LABS: Absolute Lymphocyte Count 1.39 X10^3/uL (0.83-4.51); Absolute Neutrophil Count 4.6 X10^3/uL (2.0-7.7); Basophil# 0.04 X10^3/uL; Basophil% 0.6 % (0-1); Eosinophil# 0.25 X10^3/uL; Eosinophils% 3.7 % (0-5); Hematocrit 39.6 % (40-54); Hemoglobin 12.5 g/dL (13.0-16.5); Lymphocyte # 1.39 X10^3/ul (0.83-4.51); Lymphocyte % 20.3 % (19-41); Mean Corp Hgb Conc 31.6 g/dL (32-36); Mean Corpuscular Hgb 28.8 pg (27.0-32.0); Mean Corpuscular Volume 91.2 fL (80-94); Mean Platelet Vol. 9.4 fl (6.2-12.0); Monocyte% 7.3 % (0-10); NRBC Flagged by Analyzer 0 % (0-5); Neutrophil # 4.64 X10^3/uL (2.7-7.7); Neutrophil % 67.8 % (47-70); Platelet Count 414 K/mm3 (150-450); RBC Distribution Width CV 13.4 % (11.6-14.6); RBC Distribution Width SD 45.2 fl (35.1-43.9); Red Blood Count 4.34 M/mm3 (4.6-6.2); White Blood Count 6.8 K/mm3 (4.4-11.0)
[2023-04-01 15:21] LABS: Hemoglobin A1c 8.7 % (3.8-5.6)
[2023-04-01 15:34] LABS: ALB/GLOB Ratio 0.8 RATIO (0.9-2.4); AST(SGOT) 18 U/L (15-37); Alanine Aminotransfer ALT/SGPT 24 U/L (16-61); Albumin, Serum 3.1 g/dL (3.2-5.0); Alkaline Phosphatase 119 U/L (45-117); Anion Gap 4 (5-15); BUN 28 mg/dL (7-18); BUN/Creat Ratio 15.2 RATIO (10-20); Calcium,Total 8.6 mg/dL (8.5-10.1); Chloride 100 mmol/L (98-107); Cholesterol 317 mg/dL (200); Creatinine, Serum 1.84 mg/dL (0.70-1.30); EST Glomerular Filtration Rate 40 mL/min (>60); Est Glom Filt Rate - Afr Amer 48 mL/min (>60); Globulin 4.1 g/dL (2.2-4.2); Glucose 194 mg/dL (74-106); High Density Lipoprotein 68 mg/dL; Potassium 4.8 mmol/L (3.5-5.1); Protein, Total 7.2 g/dL (6.4-8.2); Sodium Level 131 mmol/L (136-145); Thyroid Stim Hormone (TSH) 3.09 uIU/mL (0.358-3.74); Triglycerides 148 mg/dL; Very Low Density Lipoprotein 30 mg/dL (5-40)
[2023-04-09 12:09] LABS: Testosterone, Free 13.22 ng/dL (5.00-21.00); Testosterone, Total 601 ng/dL (264-916)
== END | disposition home or self-care (01) ==
LOC: BIMLAB 11:24
PROVIDERS: Physician Assistant Medical; PCP Internal Medicine; Referring Provider Internal Medicine; Visit Provider Internal Medicine
DX: E10.65 Type 1 diabetes mellitus with hyperglycemia (principal); E03.8 Other specified hypothyroidism; E78.2 Mixed hyperlipidemia
CPT/HCPCS: 36415; 80053; 80061; 83036; 84402; 84403; 84443; 85025

== ENCOUNTER → 2023-04-24 | Outpatient (CLI) | payer MEDICARE, SELFPAY ==
--- OUTSIDE RECORDS SUMMARY | 2023-04-24 10:45 | XMS RPT_ITS | CCD ---
Author Name Unknown Address [address] [place] [address] Organization [facility] Results Test Name Value Interpretation Reference Range Facil ity Summary Purpose Family History No Family History Records FoundNo Family History Records Found Advance Directives No Advanced Directives Records FoundNo Advanced Directives Records Found Additional Source Comments (unrecognized sect ion and content) No Status Records FoundNo Status Records Found INFORMATION SOURCE (unrecogn ized section and content) DATE CREATED AUTHOR AUTHOR'S ORGANIZ ATION 04/16/2023 [facility] FOR RECORDS PERTAINING TO PATIENTS WHO ARE [...] BE BASED ON THE PRIMARY CLINICAL RECORDS. [facility] [employer] [facility]. provides no warranty or guarantee of the accuracy or completeness of information in this document.
== END | disposition home or self-care (01) ==
LOC: LABSPEC 10:15
PROVIDERS: PCP Internal Medicine; Referring Provider Physician Assistant; Visit Provider Physician Assistant
DX: R09.89 Other specified symptoms and signs involving the circulatory and respiratory systems (principal)
CPT/HCPCS: 87635

== ENCOUNTER → 2023-04-25 | Outpatient (CLI) | payer MEDICARE, SELFPAY ==
--- OUTSIDE RECORDS SUMMARY | 2023-04-25 08:53 | XMS RPT_ITS | CCD ---
Author Name Unknown Address [address] [place] [address] Organization [facility] Results Test Name Value Interpretation [...] DATE CREATED AUTHOR AUTHOR'S ORGANIZ ATION 04/16/2023 [facility] FOR RECORDS PERTAINING TO PATIENTS WHO ARE [...] BE BASED ON THE PRIMARY CLINICAL RECORDS. [facility] [employer] [facility]. provides no warranty or guarantee of the accuracy or completeness of information in this document.
--- NOTE | 2023-04-25 09:00 | RAD_ITS ---
STUDY: X-RAY CHEST REASON FOR EXAM: Male, 62 years old. cough TECHNIQUE: Frontal and lateral views of the chest. COMPARISON: 02/25/2020. FINDINGS: Normal lung volumes. Possible mild atelectasis or infiltrate left lung base. Findings are not certain. Consider CT scan for better evaluation. No effusions. Minimal scars across the lateral lower left lung. Normal size heart. Normal mediastinum and oliver. Normal visualized pulmonary arteries. Normal visualized aortic arch and descending thoracic aorta. Normal visualized thoracic spine. Normal visualized ribs, clavicles, and shoulders. There is no demonstrated abnormality of the visualized soft tissue structures of the upper abdomen. RAD/Chest PA and Lateral IMPRESSION: Possible mild atelectasis or infiltrate left lung base. Findings are not certain. Consider CT scan for better evaluation. Electronically Signed: Clay Aguilar MD at 18:08 EST ,
== END | disposition home or self-care (01) ==
LOC: MTRAD 08:29
PROVIDERS: PCP Internal Medicine; Referring Provider Physician Assistant; Visit Provider Physician Assistant
DX: R05.9 Cough, unspecified (principal)
CPT/HCPCS: 71046

== ENCOUNTER → 2023-05-09 | Outpatient (CLI) | payer MEDICARE, SELFPAY ==
--- NOTE | 2023-05-09 08:58 | RAD_ITS ---
INDICATION: pneumonia EXAMINATION/TECHNIQUE: X-RAY - XR Chest 2 Views COMPARISON: 04/25/2023 FINDINGS: LINES/DEVICES: None. LUNGS: Patchy alveolar infiltrate in the left upper lobe/lingula with component of subsegmental atelectasis, increased compared to the prior. No pneumothorax. MEDIASTINUM: Unremarkable. CARDIAC SILHOUETTE: Not enlarged. BONES AND SOFT TISSUES: No acute abnormalities. RAD/Chest PA and Lateral IMPRESSION: Left upper lobe air space disease increased may be consistent with pneumonia. Radiographic follow-up is recommended in 4-6 weeks to confirm complete resolution, or CT as clinically indicated. Electronically Signed: Faith Subramanian MD at 6:17 EST ,
--- OUTSIDE RECORDS SUMMARY | 2023-05-09 09:31 | XMS RPT_ITS | CCD ---
Author Name Unknown Address [address] [place] [address] Organization [facility] Results Test Name Value Interpretation [...] DATE CREATED AUTHOR AUTHOR'S ORGANIZ ATION 04/16/2023 [facility] FOR RECORDS PERTAINING TO PATIENTS WHO [...] BE BASED ON THE PRIMARY CLINICAL RECORDS. [facility] [employer] [facility]. provides no warranty or guarantee of the accuracy or completeness of information in this document.
== END | disposition home or self-care (01) ==
LOC: MTRAD 08:58
PROVIDERS: PCP Internal Medicine; Referring Provider Physician Assistant; Visit Provider Physician Assistant
DX: J18.9 Pneumonia, unspecified organism (principal)
CPT/HCPCS: 71046

== ENCOUNTER → 2023-05-22 | Outpatient (CLI) | payer MEDICARE, SELFPAY ==
[2023-05-22 12:25] LABS: Absolute Lymphocyte Count 1.24 X10^3/uL (0.83-4.51); Absolute Neutrophil Count 5.4 X10^3/uL (2.0-7.7); Basophil# 0.02 X10^3/uL; Basophil% 0.3 % (0-1); Eosinophil# 0.27 X10^3/uL; Eosinophils% 3.6 % (0-5); Hematocrit 37.5 % (40-54); Hemoglobin 11.9 g/dL (13.0-16.5); Lymphocyte # 1.24 X10^3/ul (0.83-4.51); Lymphocyte % 16.6 % (19-41); Mean Corp Hgb Conc 31.7 g/dL (32-36); Mean Corpuscular Volume 91.2 fL (80-94); Mean Platelet Vol. 9.2 fl (6.2-12.0); Monocyte# 0.48 X10^3/uL; Monocyte% 6.4 % (0-10); NRBC Flagged by Analyzer 0 % (0-5); Neutrophil # 5.41 X10^3/uL (2.7-7.7); Neutrophil % 72.7 % (47-70); Platelet Count 400 K/mm3 (150-450); RBC Distribution Width CV 14.1 % (11.6-14.6); RBC Distribution Width SD 47.2 fl (35.1-43.9); Red Blood Count 4.11 M/mm3 (4.6-6.2); White Blood Count 7.5 K/mm3 (4.4-11.0)
[2023-05-22 13:18] LABS: ALB/GLOB Ratio 0.7 RATIO (0.9-2.4); AST(SGOT) 18 U/L (15-37); Alanine Aminotransfer ALT/SGPT 26 U/L (16-61); Albumin, Serum 2.8 g/dL (3.2-5.0); Alkaline Phosphatase 129 U/L (45-117); Anion Gap 6 (5-15); BUN 27 mg/dL (7-18); BUN/Creat Ratio 15.2 RATIO (10-20); Calcium,Total 9.1 mg/dL (8.5-10.1); Chloride 102 mmol/L (98-107); Creatinine, Serum 1.78 mg/dL (0.70-1.30); EST Glomerular Filtration Rate 41 mL/min (>60); Est Glom Filt Rate - Afr Amer 50 mL/min (>60); Globulin 3.9 g/dL (2.2-4.2); Glucose 239 mg/dL (74-106); Potassium 5.4 mmol/L (3.5-5.1); Protein, Total 6.7 g/dL (6.4-8.2); Sodium Level 135 mmol/L (136-145); Thyroid Stim Hormone (TSH) 3.99 uIU/mL (0.358-3.74)
== END | disposition home or self-care (01) ==
LOC: BIMLAB 09:44
PROVIDERS: PCP Internal Medicine; Referring Provider Internal Medicine; Visit Provider Internal Medicine
DX: Z01.818 Encounter for other preprocedural examination (principal); E10.65 Type 1 diabetes mellitus with hyperglycemia
CPT/HCPCS: 36415; 80053; 84443; 85025

== ENCOUNTER → 2023-08-05 | Outpatient (CLI) | payer MEDICARE, SELFPAY ==
[2023-08-05 10:52] LABS: Anion Gap 4 (5-15); BUN 25 mg/dL (7-18); Chloride 103 mmol/L (98-107); Creatinine, Serum 1.78 mg/dL (0.70-1.30); EST Glomerular Filtration Rate 41 mL/min (>60); Est Glom Filt Rate - Afr Amer 50 mL/min (>60); Glucose 173 mg/dL (74-106); PSA,Total - Annual Screen 0.78 ng/mL (0.00-4.00); Potassium 4.4 mmol/L (3.5-5.1); Sodium Level 134 mmol/L (136-145)
[2023-08-05 11:09] LABS: Protein, Urine (Random) 259.1 mg/dL (<11.9); Protein:Creat Ratio 2334 mg/g CRE (0-200)
== END | disposition home or self-care (01) ==
LOC: MTLAB 08:35
PROVIDERS: PCP Internal Medicine; Referring Provider Internal Medicine Nephrology; Visit Provider Internal Medicine Nephrology
DX: Z12.5 Encounter for screening for malignant neoplasm of prostate (principal); N18.2 Chronic kidney disease, stage 2 (mild)
CPT/HCPCS: 36415; 80048; 82570; 84153; 84156; G0103

== ENCOUNTER 2023-10-11 15:10 | Emergency (ER) | payer MEDICARE, SELFPAY ==
[2023-10-11 15:10] VITALS: BP 175/53; PULSE 57; RESP 14; TEMP 36.7; O2SAT 100; BMI 25.9
--- NOTE | 2023-10-11 16:40 | CT_ITS ---
STUDY: CT ABDOMEN AND PELVIS WITHOUT CONTRAST REASON FOR EXAM: Male, 62 years old. LLQ pain -- hx ckd RADIATION DOSAGE (If Supplied By Facility): CTDIvol = ( 6.33 ) mGy, DLP = ( 341.42 ) mGycm TECHNIQUE: Transaxial images were obtained from the dome of the diaphragm to the symphysis pubis without oral contrast, and without intravenous contrast. Sagittal and coronal images were reconstructed. Individualized dose optimization techniques were used for this CT. The protocol utilizes one or more of the following dose reduction techniques: automated exposure control, adjustment of mA and/or kV according to patient size,and/or use of iterative reconstruction technique. COMPARISON: Abdominal ultrasound August 27, 2020. CT abdomen and pelvis January 30, 2018. FINDINGS: The visualized lung bases are unremarkable. Calcific coronary artery disease. Normal liver. Normal gallbladder and extrahepatic biliary system. Normal spleen. Normal pancreas. Normal bilateral adrenal glands. Normal right kidney. 2.6 cm simple left renal cortical cyst. Normal visualized stomach. Normal small intestine. Normal colon. The appendix is visualized and appears normal. Calcified plaque noted along the aorta and its branches. Normal inferior vena cava. Normal retroperitoneum. Normal urinary bladder. Normal abdominal wall. Normal osseous structures. CT/Abdomen/Pelvis without Cont IMPRESSION: No acute disease. Electronically Signed: Enrrique Victoria MD at 18:12 EDT ,
--- NOTE | 2023-10-11 17:02 | ED.VIS.GI ---
HPI HPI - GI History of Present Illness Chief Complaint: Diarrhea Informant: patient Narrative Narrative: Patient presents valuation diarrhea starting 5 days ago. Nonbloody. Saturday he ate [place]. His family did not eat this. Started have diarrhea later that evening.'s been daily. Since yesterday take [id number] antidiarrhea medicines. Subsided. No diarrhea since early's morning. He developed left lower quadrant abdominal pain. No fevers. No chills. No urinary symptoms. History Beatties and stage III kidney disease. Allergies to statins and latex. Denies any recent antibiotic use. 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 Diabetic foot ulcer associated with diabetes mellitus due to underlying condition Decubitus ulcer of foot, stage 2 Carotid artery stenosis Bradycardia Granuloma annulare Hypothyroidism BPH (benign prostatic hyperplasia) Abdominal pain Sleep apnea Hearing problem Back problem High calcium levels Type 1 diabetes mellitus Meniere's disease Acquired plantar keratoderma Essential hypertension Home Medications ?Medication ?Instructions ?Recorded ?Last Taken ?Type aspirin 81 mg tablet,delayed 81 mg PO DAILY 09/19/18 05/09/20 History release insulin lispro 100 unit/mL See Rx Instructions subcut TID 12/04/19 Unknown History subcutaneous pen (Humalog KwikPen e10.9 (U-100) Insulin) omega-3 fatty acids 1,000 mg 1,000 mg PO DAILY 12/04/19 Unknown History capsule (Fish Oil Concentrate) cholecalciferol (vitamin D3) 50 50 mcg PO DAILY 03/11/20 05/09/20 History mcg (2,000 unit) capsule blood sugar diagnostic #360 ea 01/25/21 Unknown Rx blood-glucose meter (OneTouch #1 ea 01/25/21 Unknown Rx Ultra2 Meter kit) insulin needles (disposable) 30 X ##1 01/25/21 Unknown History 3/4 insulin syr/ndl U100 half avani 0.3 #100 ea 01/25/21 Unknown Rx mL 31 gauge x 1/4 pen needle, diabetic 31 gauge x #100 ea 01/25/21 Unknown Rx 3/16 (BD Ultra-Fine Mini Pen Needle) handicap placard See Rx Instructions .Route 05/25/21 Unknown Rx .COMPLEX #1 unit insulin glargine 100 unit/mL (3 25 unit subcut DAILY e10.9 01/01/22 Unknown History mL) subcutaneous pen (Lantus Solostar U-100 Insulin) metoprolol tartrate 25 mg tablet 12.5 mg (1/2 x 25 mg) PO BID #90 05/07/22 Unknown Rx tabs tadalafil 5 mg tablet 10 mg PO DAILY 08/27/22 Unknown History amlodipine 5 mg tablet 5 mg PO DAILY #90 tabs 10/11/22 Unknown Rx levothyroxine 150 mcg tablet 150 mcg PO DAILY #90 tabs 04/18/23 Unknown Rx albuterol sulfate 90 mcg/actuation 2 puff inhalation Q4-6H PRN 04/24/23 Unknown Rx aerosol inhaler shortness of breath or wheezing #6.7 grams omeprazole 40 mg capsule,delayed 40 mg PO DAILY #90 caps 05/22/23 Unknown Rx release oxybutynin chloride 10 mg 10 mg PO DAILY 05/22/23 Unknown History tablet,extended release 24 hr evolocumab 140 mg/mL subcutaneous 140 mg subcut Q2W #2 mL 06/06/23 Unknown Rx pen injector (Andres Titus) fluticasone propionate 50 1 spray intranasal DAILY PRN nasal 06/12/23 Unknown Rx mcg/actuation nasal congestion #16 grams spray,suspension losartan 100 mg tablet 100 mg PO DAILY #90 tabs 07/22/23 Unknown Rx hydrochlorothiazide 25 mg tablet 25 mg PO DAILY #30 tabs 08/02/23 Unknown Rx doxazosin 1 mg tablet 1 mg PO QHS #90 tabs 08/26/23 Unknown Rx Allergy/AdvReac Type Severity Reaction Status Date / Time latex Allergy Unknown Unknown Verified 10/11/23 15:11 [id number] Reductase AdvReac Severe muscle pain Verified 10/11/23 15:11 Inhibitor (Fbojebe-Qid-Qpq Reductase Inhibitor) Family History Mother Diabetes Myocardial infarction Heart disease High cholesterol Grandmother Parkinson disease Father Prostate cancer Grandfather COPD (chronic obstructive pulmonary disease) Surgical History Hx of bilateral cataract extraction (~06/2022) History of left heart catheterization (05/09/20) History of removal of cyst History of eye surgery Social History Smoking Status: Former smoker Smokeless tobacco user: chewing tobacco how long ago did patient quit smokin years ago second hand exposure: No alcohol intake: current alcohol intake frequency: a few times a month substance use type: does not use caffeine: Yes Type: coffee Number of servings: 3 ROS ROS ED Constitutional Constitutional ED: Denies chills, fever(s) or sweats Eyes Eyes: Denies change in vision ENT ENT ED: Denies dysphagia or sore throat Cardiovascular Cardiovascular: Denies chest pain, leg edema, palpitations or racing heartbeat Respiratory/Chest Respiratory/Chest: Denies cough, dyspnea or dyspnea on exertion Gastrointestinal Gastrointestinal: Reports abdominal pain and diarrhea; Denies nausea or vomiting Genitourinary Genitourinary ED: Denies dysuria, hematuria or urinary frequency Musculoskeletal Musculoskeletal: Denies back pain, extremity pain or neck pain Integumentary Denies rash or wounds Neurologic Neurologic: Denies headache(s), paresthesias or weakness EXAM Physical Exam Const Vital Signs: 10/11/23 15:10 10/11/23 17:10 10/11/23 18:00 Temperature 98.1 F 98.7 F Temperature Source Temporal Pulse Rate 57 L 84 78 Respiratory Rate 14 18 17 Blood Pressure 175/53 H 218/63 H 218/86 H Blood Pressure Mean 93 114 130 Pulse Ox 100 99 99 Oxygen Delivery Method Room Air Room Air Positive well nourished and well developed General Appearance ED: well developed and NAD HEENT Reports moist mucous membranes normocephalic and atraumatic Eyes EOMs intact bilaterally and conjunctivae normal General Eye ED: Yes normal appearance of both eyes Neck no lymphadenopathy and supple General: Negative for tenderness Chest Wall Chest: Negative for tenderness Resp normal respiratory effort and normal air movement Effort and Inspection: symmetric chest movement; Negative for respiratory distress Cardio regular rate, regular rhythm and no murmurs Peripheral Pulses: pulses 2+ throughout GI GI Narrative: Tender to deep palpation left lower quadrant. Negative Tirado's McBurney's tenderness. Palpation: Negative for guarding or rebound tenderness present Back/Spine no CVA tenderness and no thoracic nor lumbar tenderness Extremity normal to inspection General Extremety ED: Negative for edema or tenderness General Extremity: Negative for edema Neuro oriented x3 and no sensory deficits noted Sensorium / Orientation: awake and alert Skin no rashes or lesions noted and no wounds MDM MDM MDM Narrative Medical decision making narrative: Interventions / MDM: Differential diagnosis: Diarrhea, electrolyte abnormalities Diagnosis considered but do not suspect: Diverticulitis however CT negative My EKG interpretation: N/A Imaging independently reviewed and interpreted by myself: CT abdomen pelvis: No acute process also read by radiology. External documents reviewed: N/A Test considered but not ordered:N/A ED course: Patient nontoxic focal tenderness left lower quadrant there is no guarding or rebound. Last diarrhea episode was greater than 12 hours ago. No recent antibiotics. History of CKD. Will check labs IV fluids, noncontrast CT scan for further evaluation. CT scan negative. Labs with acute on chronic STEFAN creatinine 2.57 up from 1.7. He is given IV fluids. Is nontoxic. Likely prerenal. He is unable to provide stool sample in the ED. Discussed likely viral cause. Will continue oral fluids for hydration. Discussed return precautions. Discussed follow-up with his PCP to recheck labs as an outpatient. All questions were answered. Re-evaluation: stable Disposition discussed with patient/family/significant other: Patient Case discussed with consulting clinician: N/A This note was generated with [employer] dictation software. It may contain incorrect words, spelling, and punctuation that were not noted in checking the note before signing. Lab Data Attestation: I reviewed the patient's lab results. Labs: Laboratory Results - last 24 hr 10/11/23 17:02 WBC 5.1 RBC 3.69 L Hgb 10.7 L Hct 33.4 L MCV 90.5 MCH 29.0 MCHC 32.0 RDW Std Deviation 47.7 H RDW Coeff of Jesus 14.4 Plt Count 295 MPV 8.8 Immature Gran % (Auto) 0.200 Neut % (Auto) 61.4 Lymph % (Auto) 19.6 Knott % (Auto) 15.6 H Eos % (Auto) 2.8 Baso % (Auto) 0.4 Absolute Neuts (auto) 3.1 Absolute Lymphs (auto) 0.99 Nucleated RBC % 0 Sodium 138 Potassium 5.2 H Chloride 111 H Carbon Dioxide 22.0 Anion Gap 5 BUN 36 H Creatinine 2.57 H Estim Creat Clear Calc 27.15 Est GFR (MDRD) Af Amer 33 L Est GFR (MDRD) Non-Af 27 L BUN/Creatinine Ratio 14.0 Glucose 150 H Calcium 8.2 L Radiography Diagnostic Testing: Clinical Impression(s) from Imaging Studies Abdomen/Pelvis CT 10/11/23 16:40 IMPRESSION: No acute disease. Electronically Signed: Enrrique Victoria MD at 18:12 EDT Reading Location ID and State: [facility] / [place] Tel , Service support , Discharge Plan Triage Chief Complaint: Diarrhea ED Provider: Doug Rubi Dx/Rx/DC Orders Clinical Impression: Diarrhea, Acute on chronic renal insufficiency, Elevated blood pressure reading with diagnosis of hypertension Instructions: ED Diarrhea, Unknown Cause, ED Renal Insufficiency Prescriptions: No Action insulin glargine [Lantus Solostar U-100 Insulin] 100 unit/mL (3 mL) insulin pen 25 unit SC DAILY aspirin 81 mg tablet,delayed release (DR/EC) 81 mg PO DAILY omega-3 fatty acids [Fish Oil Concentrate] 1,000 mg capsule 1,000 mg PO DAILY Humalog KwikPen Insulin 100 unit/mL insulin pen See Rx Instructions SC TID Dose Instruction: 12 units to 16 units SC TID; 12 units to 16 units SC TID Rx Instructions: 12 units to 18 units SC TID; 12 units to 18 units SC TID cholecalciferol (vitamin D3) 50 mcg (2,000 unit) capsule 50 mcg PO DAILY (DME) insulin needles (disposable) 30 X 3/4 needle See Rx Instructions .ROUTE .MEDSUPPLY Qty: 1 Rx Instructions: As directed tadalafil 5 mg tablet 10 mg PO DAILY Patient Comments: TAKE 1 TABLET BY MOUTH ONCE DAILY albuterol sulfate 90 mcg/actuation HFA aerosol inhaler 2 puff inhalation Q4-6H PRN (Reason: shortness of breath or wheezing) Qty: 6.7 0RF oxybutynin chloride 10 mg tablet extended release 24hr 10 mg PO DAILY omeprazole 40 mg capsule,delayed release(DR/EC) 40 mg PO DAILY Qty: 90 0RF Repatha SureClick 140 mg/mL pen injector 140 mg subcut Q2W Qty: 2 11RF (DME) OneTouch Ultra Blue Test Strip Strip See Dose Instructions .ROUTE .MEDSUPPLY Qty: 360 3RF Dose Instruction: As directed Rx Instructions: use to check BG 4 x qd (DME) insulin syr/ndl U100 half avani 0.3 mL 31 gauge x 1/4 syringe See Rx Instructions .ROUTE .MEDSUPPLY Qty: 100 3RF Rx Instructions: As directed ([facility] [place] blood-glucose meter [OneTouch Ultra2 Meter] Kit See Rx Instructions .ROUTE .MEDSUPPLY Qty: 1 0RF Rx Instructions: Check blood glucose daily for type 2 diabetes mellitus (DME) pen needle, diabetic [BD Ultra-Fine Mini Pen Needle] 31 gauge x 3/16 needle See Rx Instructions .ROUTE .MEDSUPPLY Qty: 100 3RF Rx Instructions: use as directed four times a day handicap placard See Rx Instructions .ROUTE .COMPLEX Qty: 1 0RF Rx Instructions: Duration 5 years for reduced mobility metoprolol tartrate 25 mg tablet 12.5 mg PO BID Qty: 90 3RF amlodipine 5 mg tablet 5 mg PO DAILY Qty: 90 3RF levothyroxine 150 mcg tablet 150 mcg PO DAILY Qty: 90 1RF fluticasone propionate 50 mcg/actuation spray,suspension 1 spray INTRANASAL DAILY PRN (Reason: nasal congestion) Qty: 16 3RF losartan 100 mg tablet 100 mg PO DAILY Qty: 90 0RF hydrochlorothiazide 25 mg tablet 25 mg PO DAILY Qty: 30 12RF doxazosin 1 mg tablet 1 mg PO QHS Qty: 90 0RF Primary Care Provider: Madhav Avendano Referrals: Madhav Avendano MD [Primary Care Provider] - 3-5 Days Activity Restrictions/Additional Instructions: CT abdomen pelvis no acute process. Labs creatinine 2.5 up from 1.7. Likely secondary to your diarrhea. Important to continue oral fluids for hydration at home. Use Tylenol as needed for pain control. Your blood pressure elevated in the emergency department you have no symptoms. You need to follow-up with PCP or your cardiology who is managing your blood pressure and recheck and adjustments of medication. Follow-up your doctor recheck labs. We have worsening symptoms, return to the ED for reevaluation. Print Language: Pashto Disposition Disposition: Home, Self Care Discharge Date/Time: 10/11/23 18:56
[2023-10-11] MEDS: 0.9% Normal Saline (1000mL) 1,000 ML 1000 ML IV (17:03)
[2023-10-11 17:10] VITALS: BP 218/63; PULSE 84; RESP 18; O2SAT 99
[2023-10-11 17:13] LABS: Absolute Lymphocyte Count 0.99 X10^3/uL (0.83-4.51); Absolute Neutrophil Count 3.1 X10^3/uL (2.0-7.7); Basophil# 0.02 X10^3/uL; Basophil% 0.4 % (0-1); Eosinophil# 0.14 X10^3/uL; Eosinophils% 2.8 % (0-5); Hematocrit 33.4 % (40-54); Hemoglobin 10.7 g/dL (13.0-16.5); Lymphocyte # 0.99 X10^3/ul (0.83-4.51); Lymphocyte % 19.6 % (19-41); Mean Corpuscular Volume 90.5 fL (80-94); Mean Platelet Vol. 8.8 fl (6.2-12.0); Monocyte# 0.79 X10^3/uL; Monocyte% 15.6 % (0-10); NRBC Flagged by Analyzer 0 % (0-5); Neutrophil # 3.11 X10^3/uL (2.7-7.7); Neutrophil % 61.4 % (47-70); Platelet Count 295 K/mm3 (150-450); RBC Distribution Width CV 14.4 % (11.6-14.6); RBC Distribution Width SD 47.7 fl (35.1-43.9); Red Blood Count 3.69 M/mm3 (4.6-6.2); White Blood Count 5.1 K/mm3 (4.4-11.0)
[2023-10-11 17:26] LABS: Anion Gap 5 (5-15); BUN 36 mg/dL (7-18); Calcium,Total 8.2 mg/dL (8.5-10.1); Chloride 111 mmol/L (98-107); Creatinine, Serum 2.57 mg/dL (0.70-1.30); EST Glomerular Filtration Rate 27 mL/min (>60); Est Glom Filt Rate - Afr Amer 33 mL/min (>60); Estimated Creatinine Clearance 27.15 ml/min; Glucose 150 mg/dL (74-106); Potassium 5.2 mmol/L (3.5-5.1); Sodium Level 138 mmol/L (136-145)
[2023-10-11 18:00] VITALS: BP 218/86; PULSE 78; RESP 17; TEMP 37.1; O2SAT 99
== END 2023-10-11 18:56 | disposition home or self-care (01) ==
PROVIDERS: Emergency Provider Emergency Medicine; PCP Internal Medicine; Visit Provider Emergency Medicine
DX: R19.7 Diarrhea, unspecified (principal); E10.22 Type 1 diabetes mellitus with diabetic chronic kidney disease; E10.40 Type 1 diabetes mellitus with diabetic neuropathy, unspecified; N18.30 Chronic kidney disease, stage 3 unspecified; E78.2 Mixed hyperlipidemia; Z87.891 Personal history of nicotine dependence; I25.10 Atherosclerotic heart disease of native coronary artery without angina pectoris; R10.814 Left lower quadrant abdominal tenderness; I12.9 Hypertensive chronic kidney disease with stage 1 through stage 4 chronic kidney disease, or unspecified chronic kidney disease; K21.9 Gastro-esophageal reflux disease without esophagitis
CPT/HCPCS: 74176; 80048; 85025; 99283

== ENCOUNTER → 2023-11-12 | Outpatient (CLI) | payer MEDICARE, SELFPAY ==
[2023-11-12 12:18] LABS: Hemoglobin A1c 8.5 % (3.8-5.6)
[2023-11-12 12:27] LABS: ALB/GLOB Ratio 0.8 RATIO (0.9-2.4); AST(SGOT) 16 U/L (15-37); Alanine Aminotransfer ALT/SGPT 27 U/L (16-61); Albumin, Serum 3.1 g/dL (3.2-5.0); Alkaline Phosphatase 141 U/L (45-117); Anion Gap 4 (5-15); BUN 29 mg/dL (7-18); BUN/Creat Ratio 16.4 RATIO (10-20); Calcium,Total 9.1 mg/dL (8.5-10.1); Chloride 104 mmol/L (98-107); Creatinine, Serum 1.77 mg/dL (0.70-1.30); EST Glomerular Filtration Rate 41 mL/min (>60); Est Glom Filt Rate - Afr Amer 50 mL/min (>60); Globulin 3.7 g/dL (2.2-4.2); Glucose 145 mg/dL (74-106); Protein, Total 6.8 g/dL (6.4-8.2); Sodium Level 135 mmol/L (136-145)
== END | disposition home or self-care (01) ==
LOC: MTLAB 09:49
PROVIDERS: PCP Internal Medicine; Referring Provider Internal Medicine Endocrinology, Diabetes & Metabolism; Visit Provider Internal Medicine Endocrinology, Diabetes & Metabolism
DX: E10.65 Type 1 diabetes mellitus with hyperglycemia (principal)
CPT/HCPCS: 36415; 80053; 83036

== ENCOUNTER 2024-01-09 19:22 | Emergency (ER) | payer MEDICARE, SELFPAY ==
[2024-01-09 19:24] VITALS: BP 220/83; PULSE 61; RESP 18; TEMP 36.7; O2SAT 100; BMI 27.7
[2024-01-09 19:37] VITALS: O2SAT 98
[2024-01-09 19:55] LABS: Absolute Lymphocyte Count 1.65 X10^3/uL (0.83-4.51); Absolute Neutrophil Count 5.7 X10^3/uL (2.0-7.7); Basophil# 0.03 X10^3/uL; Basophil% 0.4 % (0-1); Eosinophil# 0.31 X10^3/uL; Eosinophils% 3.7 % (0-5); Hematocrit 33.3 % (40-54); Lymphocyte # 1.65 X10^3/ul (0.83-4.51); Lymphocyte % 19.6 % (19-41); Mean Corpuscular Hgb 30.1 pg (27.0-32.0); Mean Corpuscular Volume 91.2 fL (80-94); Monocyte# 0.72 X10^3/uL; Monocyte% 8.6 % (0-10); NRBC Flagged by Analyzer 0 % (0-5); Neutrophil # 5.65 X10^3/uL (2.7-7.7); Neutrophil % 67.2 % (47-70); Platelet Count 377 K/mm3 (150-450); RBC Distribution Width CV 14.3 % (11.6-14.6); RBC Distribution Width SD 47.7 fl (35.1-43.9); Red Blood Count 3.65 M/mm3 (4.6-6.2); White Blood Count 8.4 K/mm3 (4.4-11.0)
[2024-01-09 20:09] LABS: Anion Gap 7 (5-15); BUN 23 mg/dL (7-18); BUN/Creat Ratio 12.3 RATIO (10-20); Calcium,Total 8.3 mg/dL (8.5-10.1); Chloride 106 mmol/L (98-107); Creatinine, Serum 1.87 mg/dL (0.70-1.30); EST Glomerular Filtration Rate 39 mL/min (>60); Est Glom Filt Rate - Afr Amer 47 mL/min (>60); Estimated Creatinine Clearance 40.01 ml/min; Glucose 319 mg/dL (74-106); Potassium 4.8 mmol/L (3.5-5.1); Sodium Level 135 mmol/L (136-145); Troponin-I HS (w/2H Reflex) 20 pg/mL (3.0-78.0)
[2024-01-09 20:22] VITALS: BP 176/80
[2024-01-09 20:50] LABS: BNP,B-Type NATRIURETIC PEPTIDE 472.9 pg/mL (0-100)
[2024-01-09 21:00] VITALS: BP 181/71; PULSE 75; RESP 16; O2SAT 97
[2024-01-09 21:46] LABS: Reflex Troponin-HS? (from REC) Y
[2024-01-09 22:07] VITALS: O2SAT 98
[2024-01-09 22:13] LABS: Troponin-I HS 20 pg/mL (3.0-78.0)
== END 2024-01-09 22:59 | disposition home or self-care (01) ==
PROVIDERS: Emergency Provider Emergency Medicine; PCP Internal Medicine; Referring Provider Emergency Medicine; Visit Provider Emergency Medicine
DX: Z13.0 Encounter for screening for diseases of the blood and blood-forming organs and certain disorders involving the immune mechanism (principal); E10.22 Type 1 diabetes mellitus with diabetic chronic kidney disease; E10.42 Type 1 diabetes mellitus with diabetic polyneuropathy; Z79.4 Long term (current) use of insulin; N18.30 Chronic kidney disease, stage 3 unspecified; I12.9 Hypertensive chronic kidney disease with stage 1 through stage 4 chronic kidney disease, or unspecified chronic kidney disease; I25.10 Atherosclerotic heart disease of native coronary artery without angina pectoris; F17.220 Nicotine dependence, chewing tobacco, uncomplicated; Z79.899 Other long term (current) drug therapy
CPT/HCPCS: 71046; 80048; 83880; 84484; 85025; 93005; 99285; A4216

== ENCOUNTER → 2024-01-09 | Outpatient (CLI) | payer MEDICARE, SELFPAY ==
[2024-01-09 17:12] LABS: Anion Gap 3 (5-15); BUN 25 mg/dL (7-18); BUN/Creat Ratio 12.5 RATIO (10-20); Calcium,Total 8.2 mg/dL (8.5-10.1); Chloride 106 mmol/L (98-107); EST Glomerular Filtration Rate 36 mL/min (>60); Est Glom Filt Rate - Afr Amer 43 mL/min (>60); Glucose 339 mg/dL (74-106); Magnesium 2.1 mg/dL (1.6-2.6); Potassium 6.2 mmol/L (3.5-5.1); Sodium Level 134 mmol/L (136-145)
== END | disposition home or self-care (01) ==
LOC: BIMLAB 14:46
PROVIDERS: PCP Internal Medicine; Referring Provider Internal Medicine; Visit Provider Internal Medicine
DX: I25.10 Atherosclerotic heart disease of native coronary artery without angina pectoris (principal); I10 Essential (primary) hypertension; E78.2 Mixed hyperlipidemia
CPT/HCPCS: 36415; 80048; 83735

== ENCOUNTER → 2024-02-24 | Outpatient (CLI) | payer MEDICARE, SELFPAY ==
--- NOTE | 2024-02-24 07:01 | CT_ITS ---
INDICATION: Abnormal Chest X-ray EXAMINATION: CT CHEST WITHOUT CONTRAST - CT Chest W/O Contrast Injection TECHNIQUE: Helically acquired images were obtained of the chest. A radiation dose optimization technique was used for this scan. IV Contrast dosage and agent: None. COMPARISON: 11/07/2020, chest x-ray 01/09/2024 FINDINGS: LUNGS, PLEURA AND LARGE AIRWAYS: No masses, consolidation, or edema. No pleural effusion or thickening. No pneumothorax. THYROID: No thyroid lesions. HEART AND PERICARDIUM: Heart size is normal. No pericardial effusion. CORONARY ARTERIES: Coronary artery calcification is seen. VESSELS: Thoracic aorta is not dilated. MEDIASTINUM AND JOSE DANIEL: No mediastinal or hilar adenopathy. Esophagus is unremarkable. No hiatal hernia. UPPER ABDOMEN: No acute pathology. BONES: No suspicious lytic or blastic abnormality. CT/Chest without Contrast IMPRESSION: Negative CT chest without contrast. Electronically Signed: Timi Nicole MD at 14:07 EST ,
--- NOTE | 2024-02-24 07:01 | ECHOD_ITS ---
Reason For Study: CHEST PAIN Procedure This was a 2D Doppler, Color Flow transthoracic echocardiogram. Exam performed in department. Left Ventricle Normal LV size. Mild concentric left ventricular hypertrophy. Left ventricular systolic function is normal. The left ventricular ejection fraction is 65 %. No regional wall motion abnormalities noted. Right Ventricle Normal RV size. Normal systolic function. Atria Normal left atrium. Mitral Valve Normal mitral valve. Tricuspid Valve Normal tricuspid valve. Aortic Valve Trisinus/trileaflet aortic valve. Pulmonic Valve The pulmonic valve is not well visualized. Great Vessels Normal aortic root. The pulmonary artery is normal size. Inferior vena cava collapse with respiration. Pericardium/Pleural No pericardial effusion. MMode/2D Measurements & Calculations LVIDd: 5.0 cm IVSd: 1.3 cm LVOT diam: 2.0 cm LVIDs: 3.7 cm LVPWd: 1.2 cm LVOT area: 3.1 cm2 RVDd: 4.0 cm FS: 26.5 % asc Aorta Diam: 2.9 cm LAV(MOD-bp): 58.6 ml LVAd ap4: 25.6 cm2 LAV(MOD-bp) Indexed: 30.7 ml/m2 LVLd ap4: 7.9 cm LAV(MOD-sp2): 52.6 ml EDV(MOD-sp4): 68.4 ml LAV(MOD-sp4): 58.7 ml EDV(sp4-el): 70.4 ml LVAs ap4: 13.7 cm2 LVLs ap4: 6.8 cm ESV(MOD-sp4): 23.7 ml ESV(sp4-el): 23.7 ml EF(MOD-sp4): 65.3 % EF(sp4-el): 66.4 % LVAd ap2: 27.3 cm2 SV(MOD-sp4): 44.6 ml SV(MOD-sp2): 46.6 ml LVLd ap2: 7.9 cm SI(MOD-sp4): 23.4 ml/m2 SI(MOD-sp2): 24.4 ml/m2 EDV(MOD-sp2): 79.6 ml EDV(sp2-el): 79.9 ml LVAs ap2: 15.8 cm2 LVLs ap2: 6.9 cm ESV(MOD-sp2): 33.0 ml ESV(sp2-el): 30.5 ml EF(MOD-sp2): 58.6 % SV(sp4-el): 46.7 ml Ao sinus diam: 2.[address] Junction: 2.1 cm LA dimension(2D): 4.2 cm LA A4 area: 20.6 cm2 RA A4 area: 13.7 cm2 TAPSE: 2.0 cm Time Measurements MV dec time: 0.13 sec Doppler Measurements & Calculations MV E max francisco: 102.5 cm/sec Lat Peak E' Francisco: 10.8 cm/sec Med Peak E' Francisco: 7.4 cm/sec MV A max francisco: 85.5 cm/sec E/E' lat: 9.5 E/E' med: 13.8 MV E/A: 1.2 MV dec slope: 778.2 cm/sec2 Ao V2 max: 165.7 cm/sec LV V1 max: 115.4 cm/sec Ao max P.0 mmHg LV V1 max P.3 mmHg Ao V2 mean: 123.4 cm/sec LV V1 mean P.5 mmHg Ao mean P.4 mmHg LV V1 mean: 92.1 cm/sec Ao V2 VTI: 35.2 cm LV V1 VTI: 28.1 cm AV (velocity ratio): 0.80 TROY(I,D): 2.4 cm2 TROY(V,D): 2.1 cm2 SV(LVOT): 86.2 ml PA V2 max: 110.6 cm/sec ECHO/Echo Complete Interpretation Summary Normal LV size. Left ventricular systolic function is normal. The left ventricular ejection fraction is 65 %. Mild concentric left ventricular hypertrophy. Ordering Physician: Chacorta Porter Referring Physician: Madhav Avendano Performed By: Natasha Pratt RDCS
--- NOTE | 2024-02-24 07:01 | RDU_ITS ---
Reason For Study: HTN Right Renal Artery Left Renal Artery Right renal artery ostium 92.4/16.8 Left renal artery ostium 127.2/36.5 RSV/EDV. PSV/EDV. Right renal artery proximal Left renal artery proximal PSV/EDV 164.6/28.6 PSV/EDV. 112.3/22.7 . Right renal artery mid 144.3/28.6 Left renal artery mid 120.0/34.9 PSV/EDV. PSV/EDV . Right renal artery distal 88.5/16.7 Left renal artery distal 151.7/33.1 PSV/EDV. PSV/EDV. Right RAR 2.34. Left RAR 2.67. Right Renal Parenchyma LRA appears tortuous. Upper Pole Medula 44.3/6.7 PSV/EDV. Left Renal Parenchyma Right upper pole medulla EDR 0.20 . Left upper pole medulla 33.1/9.0 Right upper pole medulla R.I. PSV/EDV . 0.85 . Left upper pole medulla EDR 0.30 . Upper [place]yer Cortx 30.1/8.0 PSV/EDV. Left upper pole medulla R.I. 0.73 . Right upper pole cortex EDR 0.30 . UP Cortex 15.6/3.5 PSV/EDV. Right upper pole cortex R.I. 0.73 . Left upper pole cortex EDR 0.20 . Right lower Pole medulla 41.7/9.3 Left upper pole cortex R.I. 0.77 . PSV/EDV . Left lower Pole medulla 34.2/12.3 Right lower pole medulla EDR 0.20 . PSV/EDV . Right lower pole medulla R.I. Left lower pole medulla EDR 0.40 . 0.78 . Left lower pole medulla R.I. 0.64 . Lower Pole Cortex 17.5/6.6 PSV/EDV. Lower Pole Cortx 17.1/6.2 PSV/EDV. Right lower pole cortex EDR 0.40 . Left lower pole cortex EDR 0.40 . Right lower pole cortex R.I. 0.62 . Left lower pole cortex R.I. 0.64 . Right Renal Hilar Left Renal Hilar Right Hilar avg 116.5/17.3 PSV/EDV. LT Hilar avg 187.3/22.3 PSV/EDV . Right hilar acceleration time 20 Left hilar acceleration time 30 m/sec. m/sec. Right Renal Dimensions Left Renal Dimensions Right kidney size 11.42 cm . Left kidney size 11.50 cm . Right cortical dimension 1.94 cm . Left cortical dimension 1.59 cm . Anechoic non vascularized area noted within Lt kidney measuring approximately 1.89cm x 1.63cm. Aorta Proximal abdominal aorta 1.81 x 1.57 cm . Distal abdominal aorta 1.19 x 1.32 cm . Proximal abdominal aorta peak systolic velocity is 70.2 cm/sec . Distal abdominal aorta peak systolic velocity is 129.3 cm/sec . Procedures Renal Artery Duplex with B-mode, pulsed wave and color doppler. Limited views obtained due to bowel gas. VL/Renal Artery Duplex Ultrasound Interpretation Summary Right renal artery patent with normal velocities and no evidence of stenosis. Left renal artery patent with normal velocities and no evidence of stenosis. Right renal vein patent. Left renal vein patent. Right kidney normal in size. Left kidney normal in size. Anechoic non vascularized area noted within left kidney measuring approximately 1.89cm x 1.63cm. Ordering Physician: Madhav Avendano Referring Physician: Susie Bentley Performed By: Rashel Chandler RVT
== END | disposition home or self-care (01) ==
LOC: CT 06:59
PROVIDERS: PCP Internal Medicine; Referring Provider Nurse Practitioner Gerontology; Visit Provider Nurse Practitioner Gerontology
DX: R93.89 Abnormal findings on diagnostic imaging of other specified body structures (principal); I25.10 Atherosclerotic heart disease of native coronary artery without angina pectoris; I10 Essential (primary) hypertension; I49.8 Other specified cardiac arrhythmias; R00.1 Bradycardia, unspecified; R07.9 Chest pain, unspecified; R60.0 Localized edema; R53.83 Other fatigue
CPT/HCPCS: 71250; 93306; 93975

== ENCOUNTER → 2024-03-10 | Outpatient (CLI) | payer MEDICARE, SELFPAY ==
[2024-03-10 10:37] LABS: Protein, Urine (Random) 224.3 mg/dL (<11.9); Protein:Creat Ratio 3472 mg/g CRE (0-200)
[2024-03-10 12:39] LABS: AST(SGOT) 13 U/L (15-37); Alanine Aminotransfer ALT/SGPT 24 U/L (16-61); Albumin, Serum 2.8 g/dL (3.2-5.0); Alkaline Phosphatase 203 U/L (45-117); Anion Gap 3 (5-15); BUN 28 mg/dL (7-18); BUN/Creat Ratio 12.6 RATIO (10-20); Bilirubin, Direct 0.12 mg/dL (0.00-0.30); Calcium,Total 8.1 mg/dL (8.5-10.1); Chloride 105 mmol/L (98-107); Cholesterol 202 mg/dL (200); Creatinine, Serum 2.23 mg/dL (0.70-1.30); EST Glomerular Filtration Rate 32 mL/min (>60); Est Glom Filt Rate - Afr Amer 38 mL/min (>60); Globulin 3.7 g/dL (2.2-4.2); Glucose 149 mg/dL (74-106); High Density Lipoprotein 69 mg/dL; Potassium 4.4 mmol/L (3.5-5.1); Protein, Total 6.5 g/dL (6.4-8.2); Sodium Level 137 mmol/L (136-145); Triglycerides 99 mg/dL; Very Low Density Lipoprotein 20 mg/dL (5-40)
== END | disposition home or self-care (01) ==
LOC: MTLAB 08:56
PROVIDERS: Nurse Practitioner Gerontology; PCP Internal Medicine; Referring Provider Internal Medicine Nephrology; Visit Provider Internal Medicine Nephrology
DX: I25.10 Atherosclerotic heart disease of native coronary artery without angina pectoris (principal); N18.30 Chronic kidney disease, stage 3 unspecified; E78.2 Mixed hyperlipidemia
CPT/HCPCS: 36415; 80048; 80061; 80076; 82570; 84156

== ENCOUNTER → 2024-04-01 | Outpatient (CLI) | payer MEDICARE, SELFPAY ==
--- NOTE | 2024-04-01 07:33 | ART_ITS ---
Reason For Study: Claudication Procedure A bilateral lower extremity continuous wave Doppler with analog waveform analysis,segmental pressures,and ankle brachial indexes without exercise. Left Segmental Pressures Left posterior tibial artery = >254mmHg. Left dorsalis pedis artery = 220mmHg. Left digit = 91 mmHg. The left dorsalis pedis waveforms are biphasic. The left posterior tibial artery waveforms are biphasic. Right Segmental Pressures Right brachial= 205mmHg. Right posterior tibial artery = 168mmHg. Right dorsalis pedis artery = >254mmHg. Right digit = 89 mmHg. The right dorsalis pedis waveforms are biphasic. The right posterior tibial artery waveforms are biphasic. Indices The right ankle brachial index by the dorsalis pedis is NC. The right ankle brachial index by the posterior tibial artery is 0.82. The right digital-brachial index is 0.43. The left ankle brachial index by the dorsalis pedis is 1.07. The left ankle brachial index by the posterior tibial artery is NC. The left digital-brachial index is 0.44. . Manual BP right arm 205/110. Patient had Nuclear Stress Test prior to testing and did not take medication. radiology technologist consulted and patient released home due to no symptoms, instructed to take meds and check BP when home. VL/Lower Ext Art Exam w/o Exercis Interpretation Summary Right LEROY 0.82, moderate arterial insufficiency. Doppler/PVR waveforms reveal d istal SFA/popliteal disease. Left LEROY 1.07, normal. Doppler/PVR waveforms of the left leg mildly diminished at rest. Ordering Physician: Marlena Angel Referring Physician: Madhav Avendano Performed By: Olga Mays RVT
--- NOTE | 2024-04-02 07:21 | STRESSREP ---
Stress Test Report Pharmacologic myocardial perfusion stress test. 63-year-old man with a history of coronary artery disease Resting EKG demonstrates sinus rhythm with a rate of 82 bpm. Premature ventricular complexes noted. Resting blood pressure is 142/84 mmHg. 0.4 mg of regadenoson was infused per usual protocol followed by rapid intravenous saline flush injection. Continuous EKG monitoring was performed. The maximum heart rate was 94 bpm which was 60% of max impacted heart rate the maximum workload was 1 metabolic equivalent. At rest there were no ST or T wave changes noted to suggest ischemia and at peak infusion nonspecific ST changes were noted which did not meet the criteria for ischemia. No clinical angina is noted. The final blood pressure was 130/80 mmHg. Myocardial perfusion protocol. 11.6 mCi of technetium 99m sestamibi was injected at rest. 0.4 mg of regadenoson was infused per usual protocol. At peak infusion 35 mCi of technetium 99m sestamibi was injected stress images were obtained stress and rest images were reconstructed and compared in the short axis vertical long and horizontal long axis. Gated images were also obtained. Perfusion SPECT analysis: Review of the stress images demonstrate normal uptake of tracer noted in all areas of the myocardium. The resting images similar demonstrated normal uptake of tracer noted in all areas of the myocardium. No areas of reversibility are noted to suggest ischemia and no previous infarct is noted. Gated SPECT analysis: The gated ejection fraction is 55%. Conclusion: Normal pharmacologic myocardial perfusion stress test. Preserved ejection fraction.
== END | disposition home or self-care (01) ==
LOC: CVS 07:32
PROVIDERS: PCP Internal Medicine; Referring Provider Physician Assistant Medical; Visit Provider Physician Assistant Medical
DX: I73.9 Peripheral vascular disease, unspecified (principal); R06.09 Other forms of dyspnea
CPT/HCPCS: 78452; 93017; 93923; A9500; A4216; J2785

== ENCOUNTER → 2024-05-15 | Outpatient (CLI) | payer MEDICARE, SELFPAY ==
[2024-05-15 10:24] LABS: Absolute Lymphocyte Count 0.88 X10^3/uL (0.83-4.51); Absolute Neutrophil Count 3.7 X10^3/uL (2.0-7.7); Basophil# 0.03 X10^3/uL; Basophil% 0.6 % (0-1); Eosinophil# 0.22 X10^3/uL; Eosinophils% 4.2 % (0-5); Hematocrit 33.9 % (40-54); Lymphocyte # 0.88 X10^3/ul (0.83-4.51); Lymphocyte % 16.6 % (19-41); Mean Corp Hgb Conc 32.4 g/dL (32-36); Mean Corpuscular Hgb 29.5 pg (27.0-32.0); Mean Corpuscular Volume 90.9 fL (80-94); Mean Platelet Vol. 9.4 fl (6.2-12.0); Monocyte% 9.4 % (0-10); NRBC Flagged by Analyzer 0 % (0-5); Neutrophil # 3.66 X10^3/uL (2.7-7.7); Platelet Count 369 K/mm3 (150-450); RBC Distribution Width SD 46.3 fl (35.1-43.9); Red Blood Count 3.73 M/mm3 (4.6-6.2); White Blood Count 5.3 K/mm3 (4.4-11.0)
[2024-05-15 10:50] LABS: ALB/GLOB Ratio 1.2 RATIO (0.9-2.4); AST(SGOT) 16 U/L (<=37); Alanine Aminotransfer ALT/SGPT 16 U/L (<=46); Albumin, Serum 3.7 g/dL (3.4-4.8); Alkaline Phosphatase 160 U/L (40-129); Anion Gap 11 (5-15); BUN 36 mg/dL (4-19); BUN/Creat Ratio 16.5 RATIO (10-20); Calcium,Total 8.8 mg/dL (7.6-11.0); Carbon Dioxide 22.5 mmol/L (21.0-32.0); Chloride 102 mmol/L (98-108); Cholesterol 135 mg/dL (<=200); Creatinine, Serum 2.17 mg/dL (0.70-1.20); EST Glomerular Filtration Rate 33 (>60); Globulin 3.2 g/dL (2.2-4.2); Glucose 121 mg/dL (70-99); Hemoglobin A1c 8.9 % (<=5.6); High Density Lipoprotein 57 mg/dL; Low Density Lipoprotein Calc. 62 mg/dL; Potassium 5.1 mmol/L (3.3-5.1); Protein, Total 6.9 g/dL (5.9-8.4); Sodium Level 136 mmol/L (133-145); Triglycerides 80 mg/dL; Very Low Density Lipoprotein 16 mg/dL (5-40); Vitamin D,25 Hydroxy 29.1 ng/mL (30-100); cholesterol:hdl ratio screen 2.36
[2024-05-15 11:28] LABS: Microalbumin:Creatinine Ratio 29467.5 mg/g CRE
== END | disposition home or self-care (01) ==
LOC: MTLAB 08:52
PROVIDERS: PCP Internal Medicine; Referring Provider Internal Medicine; Visit Provider Internal Medicine
DX: E10.65 Type 1 diabetes mellitus with hyperglycemia (principal); E78.2 Mixed hyperlipidemia; E03.8 Other specified hypothyroidism; E55.9 Vitamin D deficiency, unspecified
CPT/HCPCS: 36415; 80053; 80061; 82043; 82306; 82570; 83036; 84443; 85025

== ENCOUNTER → 2024-06-10 | Outpatient (CLI) | payer MEDICARE, SELFPAY ==
[2024-06-10 15:33] LABS: Anion Gap 11 (5-15); BUN 27 mg/dL (4-19); BUN/Creat Ratio 14.1 RATIO (10-20); Calcium,Total 8.5 mg/dL (7.6-11.0); Carbon Dioxide 23.9 mmol/L (21.0-32.0); Chloride 99 mmol/L (98-108); EST Glomerular Filtration Rate 39 (>60); Glucose 251 mg/dL (70-99); Sodium Level 134 mmol/L (133-145)
== END | disposition home or self-care (01) ==
LOC: MTLAB 10:20
PROVIDERS: PCP Internal Medicine; Referring Provider Nurse Practitioner Family; Visit Provider Nurse Practitioner Family
DX: Z51.81 Encounter for therapeutic drug level monitoring (principal); Z79.899 Other long term (current) drug therapy
CPT/HCPCS: 36415; 80048

== ENCOUNTER 2024-08-04 13:38 | Emergency (ER) | payer MEDICARE, SELFPAY ==
[2024-08-04] VITALS (7 sets, daily range): BP systolic 137–232; BP diastolic 47–87; PULSE 55–72; RESP 14–21; TEMP 36.6; O2SAT 92–99; BMI 27.0
[2024-08-04 14:26] LABS: Absolute Lymphocyte Count 1.01 X10^3/uL (0.83-4.51); Absolute Neutrophil Count 5.4 X10^3/uL (2.0-7.7); Basophil# 0.03 X10^3/uL; Basophil% 0.4 % (0-1); Eosinophil# 0.27 X10^3/uL; Eosinophils% 3.7 % (0-5); Hematocrit 35.2 % (40-54); Hemoglobin 11.6 g/dL (13.0-16.5); Lymphocyte # 1.01 X10^3/ul (0.83-4.51); Lymphocyte % 13.9 % (19-41); Mean Platelet Vol. 8.7 fl (6.2-12.0); Monocyte# 0.54 X10^3/uL; Monocyte% 7.4 % (0-10); NRBC Flagged by Analyzer 0 % (0-5); Neutrophil # 5.38 X10^3/uL (2.7-7.7); Neutrophil % 74.3 % (47-70); Platelet Count 404 K/mm3 (150-450); RBC Distribution Width CV 14.4 % (11.6-14.6); White Blood Count 7.3 K/mm3 (4.4-11.0)
--- NOTE | 2024-08-04 14:27 | RAD_ITS ---
PROCEDURE: CHEST PA AND LATERAL 08/04/2024 REASON FOR EXAM: HTN TECHNIQUE: Frontal and lateral views of the chest. COMPARISON: Two-view chest, 01/09/2020. FINDINGS: There is chronic bronchial wall thickening extending from both oliver. There is no lobar consolidation or pleural effusion. The heart size is upper limits of normal. There is calcific vascular disease of the thoracic aorta. The upper abdominal bowel gas pattern is normal. There are no bony abnormalities. RAD/Chest PA and Lateral IMPRESSION: Chronic interstitial lung disease. Borderline cardiomegaly. No significant ch johnny. Reading Location: [id number]
[2024-08-04] MEDS: cloNIDine HCl 0.2 MG Tablet PO (14:37)
--- NOTE | 2024-08-04 14:48 | EX.ED.DYSGE1 ---
HPI History of Present Illness Chief Complaint: Hypertension Narrative Narrative: Patient is a 63-year-old male with a past medical history of CKD stage III, GERD, hypothyroidism, [place], type 1 diabetes, M?ni?re's disease who presented to the emergency department with a chief complaint of high blood pressure. Patient states that recently his doctor has been change his blood pressure medications and ever since then his blood pressure is running extremely high. He notes that he was at the dentist and noted that his blood pressure was elevated therefore they sent him here to be evaluated. Patient remains asymptomatic has no complaints at this point time he states that he feels well overall. States that the cardiology team is working on his blood pressure management. he states that recently he had a stress test and an entire workup [facility] Medical History Claudication of both lower extremities Hilar density Abnormal chest xray Preop cardiovascular exam CKD (chronic kidney disease), stage III GERD (gastroesophageal reflux disease) Chest congestion Preoperative evaluation to rule out surgical contraindication Sinusitis Skin cyst Fatigue Left elbow pain Health care maintenance Proteinuria Nephropathy Bilateral lower extremity edema COVID-19 vaccine series completed Atherosclerotic heart disease of [place] coronary artery without angina pectoris Mixed hyperlipidemia 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 Diabetic foot ulcer associated with diabetes mellitus due to underlying condition Decubitus ulcer of foot, stage 2 Carotid artery stenosis Bradycardia Granuloma annulare Hypothyroidism BPH (benign prostatic hyperplasia) Abdominal pain Sleep apnea Hearing problem Back problem High calcium levels Type 1 diabetes mellitus Meniere's disease Acquired plantar keratoderma Essential hypertension Home Medications ?Medication ?Instructions ?Recorded ?Last Taken ?Type insulin lispro 100 unit/mL See Rx Instructions subcut TID 12/04/19 08/04/24 History subcutaneous pen (Humalog KwikPen e10.9 (U-100) Insulin) pen needle, diabetic 31 gauge x #100 ea 01/25/21 Unknown Rx 05/17 (BD Ultra-Fine Mini Pen Needle) handicap kathiard See Rx Instructions .Route 05/25/21 Unknown Rx .COMPLEX #1 unit insulin glargine 100 unit/mL (3 25 unit subcut DAILY e10.9 01/01/22 08/04/24 History mL) subcutaneous pen (Lantus Solostar U-100 Insulin) amlodipine 5 mg tablet 5 mg PO DAILY #90 tabs 11/13/23 08/04/24 Rx fluticasone propionate 50 1 spray intranasal DAILY PRN nasal 12/20/23 Unknown Rx mcg/actuation nasal congestion #16 grams spray,suspension compress.stocking,knee,reg,lrg #2 ea 01/09/24 Unknown Rx tadalafil 5 mg tablet 5 mg PO DAILY 03/11/24 08/03/24 History levothyroxine 150 mcg tablet 150 mcg PO DAILY #90 tabs 04/23/24 08/04/24 Rx blood-glucose sensor (FreeStyle 05/07/24 Unknown History Daron 2 Plus Sensor device) cholecalciferol (vitamin D3) 50 4,000 unit PO DAILY 05/19/24 08/04/24 History mcg (2,000 unit) capsule omeprazole 40 mg capsule,delayed 40 mg PO QDAY PRN gerd 05/19/24 Unknown History release carvedilol 12.5 mg tablet 12.5 mg PO BID #180 tabs 05/26/24 08/04/24 Rx furosemide 40 mg tablet 40 mg PO QAM #90 tabs 05/26/24 08/04/24 Rx losartan 100 mg tablet 100 mg PO DAILY #90 TABLETS 06/02/24 08/03/24 Rx evolocumab 140 mg/mL subcutaneous 140 mg subcut Q2W #2 mL 06/19/24 07/06/24 Rx pen injector (Andres Titus) clonidine HCl 0.1 mg tablet 0.1 mg PO BID 30 days #60 tabs 08/04/24 Unknown Rx Allergy/AdvReac Type Severity Reaction Status Date / Time latex Allergy Unknown Unknown Verified 08/04/24 13:41 Legqiut-BQR-OtS Reductase AdvReac Severe muscle pain Verified 08/04/24 13:41 Inhibitor (Qalgwaf-Pjj-Hiu Reductase Inhibitor) Family History Mother Diabetes Myocardial infarction Heart disease High cholesterol Grandmother Parkinson disease Father Prostate cancer Grandfather COPD (chronic obstructive pulmonary disease) Surgical History Hx of bilateral cataract extraction (~06/2022) History of left heart catheterization (05/09/20) History of removal of cyst History of eye surgery Social History Smoking Status: Former smoker Smokeless tobacco user: chewing tobacco how long ago did patient quit smokin years ago second hand exposure: No alcohol intake: current alcohol intake frequency: a few times a month substance use type: does not use caffeine: Yes Type: coffee Number of servings: 3 ROS ROS ED ROS Narrative Constitutional: Denies headache, lightness, dizziness Eyes: Denies change in vision double vision blurry vision Cardiovascular: Denies chest pain Respiratory: Denies coughing wheezing shortness of breath Abdomen: Denies abdominal pain nausea vomit diarrhea : Denies urinary symptoms Neurological: Denies numbness, weakness, tingling Musculoskeletal: Denies back pain Skin: Denies any rashes or lesions EXAM Physical Exam Narrative Exam Narrative: General: Patient lying bed rest comfortably did not appear to be in acute distress Head: Atraumatic, normocephalic Eyes: PERRL bilaterally, EOMI bilateral, no conjunctival injection noted Neck: Soft, supple, trachea midline Cardiovascular: Regular in rhythm no murmurs gallops rubs noted Respiratory: Clear to auscultation bilaterally no rales rhonchi or wheezes noted Abdomen: Soft, nondistended, nontender to palpation Extremities: +5/5 strength noted in the bilateral upper and lower extremities, radial pulses +2/4 in the bilateral extremities, no pedal edema on exam Neurological: Patient follow commands knew that he was at [facility] year is 2024 Skin: Warm, dry, tact no rashes or lesions noted Const Vital Signs: 08/04/24 13:41 08/04/24 13:55 08/04/24 14:07 Temperature 97.8 F Temperature Source Temporal Pulse Rate 71 Respiratory Rate 18 Respiratory Effort Respiratory Pattern Blood Pressure 216/87 H 232/84 H Blood Pressure Mean 130 133 Pulse Ox 98 Oxygen Delivery Method Room Air Room Air 08/04/24 14:07 08/04/24 14:40 08/04/24 15:30 Temperature Temperature Source Pulse Rate 72 72 Respiratory Rate 14 18 Respiratory Effort Normal Respiratory Pattern Normal Blood Pressure 198/69 H Blood Pressure Mean 112 Pulse Ox 97 Oxygen Delivery Method Room Air 08/04/24 16:31 08/04/24 17:00 Temperature Temperature Source Pulse Rate 55 L 59 L Respiratory Rate 18 21 H Respiratory Effort Respiratory Pattern Blood Pressure 137/47 H 151/74 H Blood Pressure Mean 77 99 Pulse Ox 92 99 Oxygen Delivery Method MDM MDM MDM Narrative Medical decision making narrative: Patient is a 63-year-old male who presents to the emergency department chief complaint of hypertension. On the differential diagnose includes but not limited to essential hypertension, hypertensive emergency, ACS. Once workup is obtained reviewed he will be reevaluated. Manual blood pressure was obtained and he was hypertensive 232/84 therefore he was given 0.2 mg of clonidine. Patient is on 5 mg amlodipine daily, 12.5 mg of carvedilol, doxazosin 4 mg, furosemide 40 mg daily, 100 mg losartan Patient CBC was reviewed showed no evidence of cytosis white blood count 713, hemoglobin 0.6, plate count of 404. Patient sodium 136, potassium elevated at 5.3, creatinine was 2.20 which he does have underlying chronic kidney disease however was elevated from a June 10, 2024 blood drawl, troponin was elevated to 35 delta troponin pending. Patient's EKG reviewed showed sinus rhythm with a rate of [address] changes noted in the inferior lateral leads. Patient chest x-ray reviewed by myself and by radiology showed chronic interstitial lung disease borderline cardiomegaly no significant change. Will back and discussed the results with the patient and he states that he has too much to do and he does not want stay in the hospital he states that he will sign out AGAINST MEDICAL ADVICE. I told him since he is doing this I will reach out to cardiology to see if they have any advice on any medication adjustments. Patient's delta troponin came back and it was noted to be 32. I called and discussed with Dr. Redmond and after our discussion we had an agreement on discontinuing the doxazosin and starting clonidine 0.1 mg twice daily. He was advising the patient to follow-up closely in the office and call for an appointment tomorrow. He was also recommending taking all his medications to the office with him that he is on as well. I discussed this plan with the patient he is agreeable to this plan he once again would like to sign out AGAINST MEDICAL ADVICE. Prescription for 0.1 mg of clonidine twice daily was sent to the pharmacy he was advised stop the doxazosin and encouraged return with worsening symptoms or concerns. He is advised to follow closely with his doctors and return with any other concerns. All question concerns answered at bedside. Lab Data Labs: Laboratory Results - last 24 hr 08/04/24 08/04/24 14:12 16:32 WBC 7.3 RBC 4.00 L Hgb 11.6 L Hct 35.2 L MCV 88.0 MCH 29.0 MCHC 33.0 RDW Std Deviation 46.0 H RDW Coeff of Jesus 14.4 Plt Count 404 MPV 8.7 Immature Gran % (Auto) 0.300 Neut % (Auto) 74.3 H Lymph % (Auto) 13.9 L [place] % (Auto) 7.4 Eos % (Auto) 3.7 Baso % (Auto) 0.4 Absolute Neuts (auto) 5.4 Absolute Lymphs (auto) 1.01 Nucleated RBC % 0 Sodium 136 Potassium 5.3 H Chloride 102 Carbon Dioxide 24.7 Anion Gap 10 BUN 37 H Creatinine 2.20 H Estim Creat Clear Calc 31.30 L Est GFR (MDRD) Non-Af 32 L BUN/Creatinine Ratio 16.7 Glucose 130 H Calcium 9.3 Troponin T High Sens 35 H Troponin T Hi Sens 2 Hr 32 H Radiography Diagnostic Testing: Clinical Impression(s) from Imaging Studies Chest X-Ray 08/04/24 14:27 IMPRESSION: Chronic interstitial lung disease. Borderline cardiomegaly. No significant change. Reading Location: [id number] Discharge Plan Triage Chief Complaint: Hypertension ED Provider: Denzel Carlin Dx/Rx/DC Orders Clinical Impression: Essential hypertension, CKD (chronic kidney disease), stage III Prescriptions: New clonidine HCl 0.1 mg tablet 0.1 mg PO BID 30 Days Qty: 60 0RF Discontinued doxazosin 4 mg tablet 4 mg PO QHS Qty: 90 3RF No Action insulin glargine [Lantus Solostar U-100 Insulin] 100 unit/mL (3 mL) insulin pen 25 unit SC DAILY Humalog KwikPen Insulin 100 unit/mL insulin pen See Rx Instructions SC TID Dose Instruction: 12 units to 16 units SC TID; 12 units to 16 units SC TID Rx Instructions: 12 units to 18 units SC TID; 12 units to 18 units SC TID cholecalciferol (vitamin D3) 50 mcg (2,000 unit) capsule 4,000 unit PO DAILY tadalafil 5 mg tablet 5 mg PO DAILY Patient Comments: TAKE 1 TABLET BY MOUTH ONCE DAILY (DME) compress.stocking,knee,reg,lrg Misc See Rx Instructions .MEDSUPPLY Qty: 2 1RF Rx Instructions: wear daily for venous insufficiency 20-30 mmHg (DME) FreeStyle Daron 2 Plus Sensor Device See Rx Instructions .ROUTE Rx Instructions: As directed omeprazole 40 mg capsule,delayed release(DR/EC) 40 mg PO QDAY PRN (Reason: gerd) (DME) pen needle, diabetic [BD Ultra-Fine Mini Pen Needle] 31 gauge x 3/16 needle See Rx Instructions .ROUTE .MEDSUPPLY Qty: 100 3RF Rx Instructions: use as directed four times a day handicap placard See Rx Instructions .ROUTE .COMPLEX Qty: 1 0RF Rx Instructions: Duration 5 years for reduced mobility amlodipine 5 mg tablet 5 mg PO DAILY Qty: 90 3RF fluticasone propionate 50 mcg/actuation spray,suspension 1 spray INTRANASAL DAILY PRN (Reason: nasal congestion) Qty: 16 3RF levothyroxine 150 mcg tablet 150 mcg PO DAILY Qty: 90 1RF furosemide 40 mg tablet 40 mg PO QAM Qty: 90 3RF carvedilol 12.5 mg tablet 12.5 mg PO BID Qty: 180 3RF Rx Instructions: must administer with a meal/food losartan 100 mg tablet 100 mg PO DAILY Qty: 90 1RF Repatha SureClick 140 mg/mL pen injector 140 mg subcut Q2W Qty: 2 11RF Primary Care Provider: Madhav Avendano Referrals: Madhav Avendano MD [Primary Care Provider] - Activity Restrictions/Additional Instructions: Follow-up with your cardiology team as soon as possible give their office a call for an appointment as soon as possible. Stop taking doxazosin and start taking the clonidine that was sent to your pharmacy as prescribed. Ensure you take a dose tonight. Return with worsening symptoms or other concerns. Print Language: Maori Disposition Disposition: Home, Self Care
[2024-08-04 14:55] LABS: Anion Gap 10 (5-15); BUN 37 mg/dL (4-19); BUN/Creat Ratio 16.7 RATIO (10-20); Calcium,Total 9.3 mg/dL (7.6-11.0); Carbon Dioxide 24.7 mmol/L (21.0-32.0); Chloride 102 mmol/L (98-108); EST Glomerular Filtration Rate 32 (>60); Glucose 130 mg/dL (70-99); Potassium 5.3 mmol/L (3.3-5.1); Sodium Level 136 mmol/L (133-145); Troponin T High Sensitivity 35 ng/L (<=22)
[2024-08-04 17:07] LABS: Troponin T High Sens 2 HR 32 ng/L (<=22)
--- NOTE | 2024-08-04 17:32 | ED.RN ---
patient states he would like to leave AMA-Patient,Dr. Carlin and LAURY Witt signed paperwork. 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 does not want a copy
== END 2024-08-04 17:40 | disposition home or self-care (01) ==
PROVIDERS: Emergency Provider Emergency Medicine; PCP Internal Medicine; Visit Provider Emergency Medicine
DX: I12.9 Hypertensive chronic kidney disease with stage 1 through stage 4 chronic kidney disease, or unspecified chronic kidney disease (principal); E10.22 Type 1 diabetes mellitus with diabetic chronic kidney disease; E10.40 Type 1 diabetes mellitus with diabetic neuropathy, unspecified; N18.30 Chronic kidney disease, stage 3 unspecified; I25.10 Atherosclerotic heart disease of native coronary artery without angina pectoris; F17.220 Nicotine dependence, chewing tobacco, uncomplicated; Z79.899 Other long term (current) drug therapy
CPT/HCPCS: 71046; 80048; 84484; 85025; 93005; 99284; A4216

== ENCOUNTER → 2024-12-01 | Outpatient (CLI) | payer MEDICARE, SELFPAY ==
--- NOTE | 2024-12-01 08:41 | CDU_ITS ---
Reason For Study Reason For Study: CAROTID DISEASE HX, DM Rt. Velocities/BP Lt. Velocities/BP Prox CCA 53.4/9.5 cm/sec. Prox CCA 67.7/11.7 cm/sec. Mid CCA 105.1/15.5 cm/sec. Mid CCA 99.7/15.7 cm/sec. Dist CCA 105.8/14.4 cm/sec. Dist CCA 82.0/13.8 cm/sec. Prox ICA 97.4/16.3 cm/sec. Prox ICA 138.1/13.9 cm/sec. Mid ICA 87.2/19.0 cm/sec. Mid ICA 85.5/19.2 cm/sec. Dist ICA 78.7/18.2 cm/sec. Dist ICA 71.9/10.8 cm/sec. Rt. ICA/CCA = 97.4/105.1=0.92. Lt. ICA/CCA = 138.1/99.7=1.4. Prox ECA 145.4/4.7 cm/sec. Prox ECA 195.9/9.3 cm/sec. Rt. Vert. 65.5/10.6 cm/sec. Lt. Vert. 41.6/8.5 cm/sec. Right Extracranial There is heterogeneous, irregular atherosclerotic plaque noted in the right common carotid artery. There is heterogeneous, irregular atherosclerotic plaque noted in the right internal carotid artery. The atherosclerotic plaque causes acoustic shadowing. There is heterogeneous, irregular atherosclerotic plaque noted in the right external carotid artery. Antegrade flow is noted in the right vertebral artery. Left Extracranial There is heterogeneous, irregular atherosclerotic plaque noted in the left common carotid artery. There is heterogeneous, irregular atherosclerotic plaque noted in the left internal carotid artery. The atherosclerotic plaque causes acoustic shadowing. There is heterogeneous, irregular atherosclerotic plaque noted in the left external carotid artery. Antegrade flow is noted in the left vertebral artery. VL/Carotid Duplex Ultrasound Interpretation Summary Mild (<50%) stenosis right extracranial internal carotid. Moderate (50-69%) stenosis left extracranial internal carotid. Patent and antegrade vertebrals bilaterally. Ordering Physician: Chacorta Porter Referring Physician: Madhav Avendano Performed By: Rashida Morfin RVT, RDCS and Student
--- OUTSIDE RECORDS SUMMARY | 2024-12-02 07:20 | XMS RPT_ITS ---
Author Name Auto Generated Organization [facility] [employer]OB[employer] No Problem Records Found PROCEDURES No Procedure Records Found RESULTS 36 Observed: 02/12/2024 1:14 PM Status: COMPLETED Source: [facility] Patient called and LM to can josh his appt for today (02/12/24) and to reschedule to March if possible. Reached out to pt, call goes straight byron [facility]MT[facility] to reschedule. 36 Observed: 01/10/2024 8:50 AM Status: COMPLETED Source: [facility] Referral received for BPH an d ED, scanned into media. Patient requested the [place] office. Appt scheduled 02/12/[address] Lim in [place]. ALLERGIES No Allergies Records Found ENCOUNTERS No Encounter Records Found PAYERS No Payer Records Found
== END | disposition home or self-care (01) ==
LOC: CVS 08:40
PROVIDERS: PCP Internal Medicine; Referring Provider Nurse Practitioner Family; Visit Provider Nurse Practitioner Family
DX: I65.22 Occlusion and stenosis of left carotid artery (principal)
CPT/HCPCS: 93880

== ENCOUNTER 2025-02-02 19:22 | Inpatient (IN) | payer MEDICARE, SELFPAY ==
[2025-02-02] VITALS (13 sets, daily range): BP systolic 129–207; BP diastolic 54–85; PULSE 82–98; RESP 12–28; TEMP 36.6–37.7; O2SAT 82–100; BMI 25.8; BMI 25.0
--- OUTSIDE RECORDS SUMMARY | 2025-02-02 19:52 | XMS RPT_ITS | CCD ---
Author Organization [facility] Care Team Providers Care Facility Maintenance Supervisor Name Role Phone Dr. Sherice Avendano Primary Care Provider [phone] Dr. Sherice Avendano Referring Provider [phone] Mc CAN TENDER, CAN TENDER-C Gennaro Attending Provider Dr. Sherice Avendano Primary Care Provider [phone] Dr. Sherice Avendano Attending Provider [phone] Dr. Sherice Avendano Referring Provider [phone] Mc CAN TENDER, CAN TENDER-C Gennaro Attending Provider Dr. Sherice Avendano Primary Care Provider [phone]) Dr. Sherice Avendano Attending Provider [phone] Dr. Sherice Avendano Referring Provider [phone] Mc FARR, CAN TENDER-C Gennaro Attending Provider Dr. Nicholas Teixeira Attending Provider [phone] Dr. Sherice Avendano Primary Care Provider [phone] Mc CAN TENDER, CAN TENDER-C Gennaro Referring Provider Dr. Sherice Avendano Attending Provider [phone] Dr. Sherice Avendano Referring Provider [phone] German FARR, CAN TENDER-C Chacorta Barraza Attending Provider [phone] ANIL Torres Attending Provider Unavailab Dr. Sherice Hirsch Primary Care Provider [phone]) Dr. Sherice Avendano Attending Provider [phone] Dr. Sherice Avendano Referring Provider [phone] SHAUN Porter NP Attending Provider [phone] ANIL Heller Attending Provider Dr. Sherice Avendano Primary Care Provider 1(33 0) Dr. Sherice Avendano Referring Provider [phone] ANIL Heller Attending Provider ANIL Turner Attending Provider Dr. Sherice Avendano Attending Provider [phone] Dr. Sherice Avendano Primary Care Provider 1(33 0) Dr. Sherice Avendano Referring Provider [phone] SHAUN Menchaca Attending Provider Dwight MA, PA Yan Attending Provider 1(330) Dr. Sherice Avendano Primary Care Provider 1(33 0) Dr. Sherice Avendano Referring Provider [phone] ANIL Turner Attending Provider Dr. Sherice Avendano Attending Provider [phone] SHAUN Menchaca Attending Provider Dwight MA PA Yan Attending Provider [phone]) FABIOLA PARKER JR Admitting Unavailab FABIOLA Tovar JR Attending Unavailab SHERICE Hirsch Primary Care Unavailable Jhonny Lim MD Unavailable Gennaro Rai Attending Provider 1(330) Gennaro Rai Referring Provider 1(330) Dr. Sherice Avendano MD Primary Care Provider Dr. Sherice Avendano MD Referring Provider [phone]) Puneet WERNER, Dr. Peterson Attending Provider Emanuel WERNER, Dr. Lord Attending Provider Treva WERNER, Dr. Bishop Attending Provider Treva WERNER, Dr. Bishop Referring Provider German CAN TENDER-C, Chacorta H Other Provider Mc CAN TENDER-C, Gennaro Other Provider Marlena Justin Attending Provider Marlena Justin Referring Provider Marlena Justin Other Provider Romana WERNER, Dr. Corey Attending Provider [phone] VIRGILIO CAN TENDER-C, CANDICE Other Provider German CAN TENDER-C, Chacorta H Attending Provider [phone] German CAN TENDER-C, Chacorta H Referring Provider Romana WERNER, Dr. Corey Primary Care Provider Romana WERNER, Dr. Corey Referring Provider [phone] Dr. Denzel Carlin DO Emergency Provider Dr. Denzel Carlin DO Attending Provider Ungerer CAN TENDER-C, Riya Attending Provider [phone] Romana WERNER, Dr. Corey Primary Care Provider Romana WERNER, Dr. Corey Referring Provider [phone] German CAN TENDER-C, Chacorta Barraza Attending Provider Yan Gomez Attending Provider Romana WERNER, Dr. Corey Attending Provider [phone] Romana WERNER, Dr. Corey Primary Care Physician Dr. Denzel Carlin DO Attending Physician Dr. Denzel Carlin DO Emergency Department Physic kyra Moisesr CAN TENDER-CRiya Attending Physician German CAN TENDER-C, Chacorta Barraza Attending Physician Yan Gomez Attending Physician Romana WERNER, Dr. Corey Attending Physician German CAN TENDER-CChacorta Referring Provider Romana WERNER, Dr. Corey Primary Care Physician Puneet WRENER, Dr. Peterson Attending Physician German CAN TENDERChacorta Attending Unavailable Oleghe, Efewongbe Primary Care Unavailable Oleghe, Efewongbe Referring Unavailable Oleghe, Efewongbe Primary Care Unavailable Nicholas Teixeira Attending Unavailable German FARR, Chacorta Barraza Referring Unavailable Jed Castellanosril Attending Unavailable Oleghe, Efewongbe Primary Care Unavailable Nicholas Teixeira Attending Unavailable Oleghe, Efewongbe Referring Unavailable Oleghe, Efewongbe Primary Care Unavailable Denzel Carlin Attending Unavailable Oleghe, Efewongbe Primary Care Unavailable Treva, Jayaprakas Attending Unavailable Treva Jayaprakallies Referring Unavailable Chacorta Porter NP Consulting Unavailable Oleghe, Efewongbe Primary Care Unavailable Mc FARR, Gennaro Consulting Unavailable Marlena Angel Referring Unavailabl Marlena Parker Attending Unavailabl e Oleghe, Efewongbe Primary Care Unavailable Oleghe, Efewongbe Primary Care Unavailable Chacorta Porter NP Referring Unavailable Chacorta Porter NP Attending Unavailable Oleghe, Efewongbe Primary Care Unavailable Oleghe, Efewongbe Referring Unavailable Oleghe, Efewongbe Attending Unavailable Chacorta Porter NP Attending Unavailable Oleghe, Efewongbe Referring Unavailable Oleghe, Efewongbe Primary Care Unavailable Oleghe, Efewongbe Referring Unavailable Oleghe, Efewongbe Primary Care Unavailable Yan Gomez Attending Unavailable Oleghe, Efewongbe Referring Unavailable Oleghe, Efewongbe Primary Care Unavailable Riya Lutz Attending Unavailable Mc FARR, Gennaro Attending Unavailable Gennaro Fuentes NP Referring Unavailable Oleghe, Efewongbe Primary Care Unavailable Chacorta Porter NP Attending Unavailable Roof YORDAN, Chacorta Barraza Referring Unavailable Oleghe, Efewongbe Primary Care Unavailable Oleghe, Efewongbe Attending Unavailable CANDICE POOLE Consulting Unavailable Oleghe, Efewongbe Referring Unavailable Oleghe, Efewongbe Primary Care Unavailable Oleghe, Efewongbe Primary Care Unavailable Oleghe, Efewongbe Attending Unavailable Oleghe, Efewongbe Referring Unavailable Nicholas Teixeira Attending Unavailable Marlena Angel Referring Unavailabl e Oleghe, Efewongbe Primary Care Unavailable Marlena Angel Referring Unavailabl e Emanuel, Garfield Attending Unavailable Oleghe, Efewongbe Primary Care Unavailable Marlena Angel Referring Unavailabl e Emanuel, Pop Attending Unavailable Marlena Angel Consulting Unavailabl e Oleghe, Efewongbe Primary Care Unavailable Oleghe, Efewongbe Attending Unavailable Oleghe, Efewongbe Referring Unavailable Oleghe, Efewongbe Primary Care Unavailable Oleghe, Efewongbe Primary Care Unavailable Chacorta Porter NP Referring Unavailable Chacorta Porter NP Attending Unavailable Denzel Carlin Attending Unavailable Denzel Carlin Referring Unavailable Oleghe, Efewongbe Primary Care Unavailable Marlena Angel Attending Unavailabl e Oleghe, Efewongbe Referring Unavailable Oleghe, Efewongbe Primary Care Unavailable Oleghe, Efewongbe Primary Care Unavailable Oleghe, Efewongbe Referring Unavailable Oleghe, Efewongbe Attending Unavailable Oleghe, Efewongbe Primary Care Unavailable Roof Chacorta FARR Attending Unavailable Oleghe, Efewongbe Referring Unavailable Oleghe, Efewongbe Primary Care Unavailable Oleghe, Efewongbe Referring Unavailable Yan Gomez Attending Unavailable Gennaro Fuentes NP Attending Unavailable Oleghe, Efewongbe Referring Unavailable Oleghe, Efewongbe Primary Care Unavailable Romana WERNER, Dr. Corey Primary Care Physician Dr. Sherice Avendano MD Referring Provider [phone] Roof CAN TENDER-Chacorta Valderrama Attending Physician Allergies Allergy Classification Reported Allergen(s) Allergy Type Date of Onset Reaction(s) Facility (2 sources) Adhesive agent Allergy to substance 2 Rash [facility] Work Phone: (20 sources) Latex Allergy to substance 2 Unknown [facility] (20 sources) Vnhngnt-Xxp-Kdm Reductase Inhibitor; Translations: [Xsgtyxx-Hwy-Lnp Reductase Inhibitor] Propensity to adverse reactions 2 muscle pain [facility] (1 source) Adhesive Tape; Translations: [ADHESIVE TAPE (ROSINS)] Propensity to adverse reactions (disorder) 8 [facility] (1 source) Hmg-Coa Reductase Inhibitors (Statins); Translations: [[id number] REDUCTASE INHIBITORS] Propensity to adverse reactions to drug (disorder) 4 [facility] (1 source) Latex Drug allergy (disorder) 5 [facility] Medications Current Medications Medication Drug Class(es) Dates Sig (Normalized) Sig (Original) amoxicillin 875 mg / clavulanate 125 mg oral tablet (20 sources) Penicillin-class Antibacterial Start: 12-17-2024 Amoxicillin-Pot Clavulanate 875-125 mg tablet Active 1 {tbl} PO TWICE A DAY December 17, 2024 12:00am Complies with drug therapy Start: 11-07-2022 End: 11-17-2022 Amoxicillin-Pot Clavulanate 875-125 mg tablet Discontinued 1 {tbl} PO Q12H 20 10 November 07, 2022 12:00am November 16, 2022 12:00am November 17, 2022 12:15am Acute sinusitis, unspecified Start: 11-07-2022 End: 11-17-2022 take 1 tablet by mouth every twelve hours Amoxicillin-Pot Clavulanate Discontinued 1 TABLET PO Q12H 21 12November 07, 2022 12:00am November 17, 2022 12:15am Start: 03-01-2022 End: 03-22-2022 Amoxicillin-Pot Clavulanate 875-125 mg tablet Discontinued 1 {tbl} PO TWICE A DAY 42 21 March 01, 2022 1:00am March 21, 2022 1:00am March 22, 2022 1:03am Start: 03-01-2022 End: 03-22-2022 take 1 tablet by mouth twice daily Amoxicillin-Pot Clavulanate Discontinued 1 TABLET PO TWICE A DAY 42 March 01, 2022 1:00am March 22, 2022 1:03am Start: 03-14-2020 End: 04-04-2020 Amoxicillin-Pot Clavulanate 875-125 mg tablet Discontinued 1 {tbl} PO Q12H 42 21 March 14, 2020 1:00am April 03, 2020 1:00am April 04, 2020 1:03am Start: 03-14-2020 End: 04-04-2020 take 1 tablet by mouth every twelve hours Amoxicillin-Pot Clavulanate Discontinued 1 TABLET PO Q12H 42 March 14, 2020 1:00am April 04, 2020 1:03am Start: 04-10-2019 End: 05-05-2019 Amoxicillin-Pot Clavulanate (Augmentin) 875-125 mg tablet Discontinued 1 {tbl} PO TWICE A DAY 20 April 10, 2019 1:00am May 05, 2019 10:33am benzonatate 200 mg oral capsule (18 sources) Non-narcotic Antitussive Start: 12-22-2024 take 1 capsule by mouth three times daily as needed for cough Start: 10-28-2024 End: 12-22-2024 take 1 capsule by mouth three times daily as needed for cough Benzonatate 200 mg capsule Discontinued 200 mg PO THREE TIMES A DAY as needed for cough 30 0 October 28, 2024 12:00am December 22, 2024 10:44am Start: 05-01-2023 End: 05-22-2023 take 1 capsule by mouth three times daily as needed for cough Benzonatate 200 mg capsule Discontinued 200 mg PO THREE TIMES A DAY as needed for cough 30 0 May 01, 2023 1:00am May 22, 2023 9:17am Blood-Glucose Meter (Onetouc h Ultra2 Meter) kit (20 sources) Start: 01-25-2021 Blood-Glucose Meter (Onetouch Ultra2 Meter) kit Active 0 .ROUTE .MEDSUPPLY January 25, 2021 12:38pm Check blood glucose daily for type 2 diabetes mellitus Start: 01-25-2021 End: 08-04-2024 Blood-Glucose Meter (Onetouc h Ultra2 Meter) kit Discontinued 0 .ROUTE .MEDSUPPLY 1 January 25, 2021 1:00am August 04, 2024 2:21pm Check blood glucose daily for type 2 diabetes mellitus Start: 01-25-2021 End: 08-04-2024 Blood-Glucose Meter (Onetouc h Ultra2 Meter) kit Discontinued 0 .ROUTE .MEDSUPPLY January 25, 2021 1:00am August 04, 2024 2:21pm Check blood glucose daily for type 2 diabetes mellitus Start: 01-25-2021 Blood-Glucose Meter (Onetouch Ultra2 Meter) kit Active 0 .ROUTE .MEDSUPPLY January 25, 2021 12:00am Check blood glucose daily for type 2 diabetes mellitus Start: 01-25-2021 Blood-Glucose Meter (Onetouch Ultra2 Meter) kit Active 0 .ROUTE .MEDSUPPLY January 25, 2021 1:00am Check blood glucose daily for type 2 diabetes mellitus Blood-Glucose Sensor (Freest yle Daron 2 Plus Sensor) device (10 sources) Start: 05-07-2024 Blood-Glucose Sensor (Freestyle Daron 2 Plus Sensor) device Active 0 .Route May 07, 2024 1:00am As directed Start: 05-07-2024 Blood-Glucose Sensor (Freestyle Daron 2 Plus Sensor) device Active 0 .ROUTE May 07, 2024 1:00am As directed carvedilol 6.25 mg oral tablet (20 sources) alpha-Adrenergic Demarco, beta-Adrenergic Demarco Start: 08-31-2024 End: 11-26-2024 take 1 tablet by mouth twice daily at mealtime Carvedilol 6.25 mg tablet Active 6.25 mg PO TWICE A DAY 180 3 November 26, 2024 10:36am must administer with a meal/food Complies with drug therapy Start: 08-14-2024 End: 08-31-2024 take 6.25 mg by mouth twice daily at mealtime Carvedilol 12.5 mg tablet Discontinued 6.25 mg PO TWICE A DAY 0 0 August 14, 2024 4:48pm August 31, 2024 8:55am must administer with a meal/food Start: 05-26-2024 End: 08-14-2024 take 1 tablet by mouth twice daily at mealtime Carvedilol 12.5 mg tablet Discontinued 12.5 mg PO TWICE A DAY 180 3 May 26, 2024 11:20am August 14, 2024 4:48pm must administer with a meal/food Start: 05-19-2024 End: 05-26-2024 take 2 tablets by mouth twice daily at mealtime Carvedilol 12.5 mg tablet Discontinued 25 mg PO TWICE A DAY May 19, 2024 11:10am May 26, 2024 11:20am must administer with a meal/food Start: 04-16-2024 End: 05-19-2024 take 1 tablet by mouth twice daily at mealtime Carvedilol 12.5 mg tablet Discontinued 12.5 mg PO TWICE A DAY April 16, 2024 1:00am May 19, 2024 11:10am must administer with a meal/food Start: 03-11-2024 End: 04-16-2024 take 1 tablet by mouth twice daily at mealtime Carvedilol 3.125 mg tablet Discontinued 3.125 mg PO TWICE A DAY 60 March 11, 2024 1:00am April 16, 2024 10:54am must administer with a meal/food cholecalciferol 0.05 mg oral capsule (20 sources) Vitamin D Start: 11-11-2024 take 1 capsule by mouth once daily Cholecalciferol (Vitamin D3) 50 mcg (2,000 unit) capsule Active 2000 U PO DAILY 90 2 November 11, 2024 10:24am Complies with drug therapy Start: 05-19-2024 End: 11-11-2024 take 1 capsule by mouth once daily Cholecalciferol (Vitamin D3) 50 mcg (2,000 unit) capsule Discontinued 4000 U PO DAILY May 19, 2024 10:32am November 11, 2024 10:24am Start: 05-19-2024 take 1 capsule by mo [facility] once daily Cholecalciferol (Vitamin D3) 50 mcg (2,000 unit) capsule Active 2000 U PO DAILY May 19, 2024 10:32am Start: 03-11-2020 End: 05-19-2024 take 1 capsule by mouth once daily Cholecalciferol (Vitamin D3) 50 mcg (2,000 unit) capsule Discontinued 50 ug PO DAILY March 11, 2020 1:00am May 19, 2024 10:34am 168 hr cloNIDine 0.88092 mg/hr transdermal system (16 sources) Central alpha-2 Adrenergic Agonist Start: 11-11-2024 Clonidine 0.1 mg/24 hr patch weekly Active 1 NMA TD EVERY WEEK 4 November 11, 2024 12:00am Continue taking p.o. x 2 days prior to discontinuing. Complies with drug therapy Start: 08-04-2024 End: 11-11-2024 take 1 tablet by mouth twice daily Clonidine Hcl 0.1 mg tablet Discontinued 0.1 mg PO TWICE A DAY 180 August 31, 2024 8:53am November 11, 2024 5:04pm Compress.Stocking,Knee,Reg,L rg misc (10 sources) Start: 01-09-2024 Compress.Stocking,Knee,Reg,L rg misc Active 0 .MEDSUPPLY 2 January 09, 2024 1:00am Venous insufficiency (chronic) (peripheral) wear daily for venous insufficiency 20-30 mmHg Start: 01-09-2024 Compress.Stock ing,Knee,Reg,Lrg misc Active 0 .MEDSUPPLY 2 January 09, 2024 1:00am wear daily for venous insufficiency 20-30 mmHg furosemide 40 mg oral tablet (20 sources) Loop Diuretic Start: 08-26-2024 take 1 tablet by mouth once daily in the morning Furosemide (Lasix) 40 mg tablet Active 40 mg PO EVERY MORNING August 26, 2024 12:00am Complies with drug therapy Start: 05-26-2024 End: 08-20-2024 take 1 tablet by mouth once daily in the morning Furosemide 40 mg tablet Discontinued 40 mg PO EVERY MORNING May 26, 2024 12:00am August 20, 2024 11:08am Start: 05-19-2024 End: 05-26-2024 take 2 tablets by mouth once daily in the morning Furosemide 20 mg tablet Discontinued 40 mg PO EVERY MORNING May 19, 2024 10:33am May 26, 2024 11:19am Start: 04-16-2024 End: 05-19-2024 take 1 tablet by mouth once daily in the morning Furosemide 20 mg tablet Discontinued 20 mg PO EVERY MORNING April 16, 2024 1:00am May 19, 2024 10:34am Start: 01-14-2024 End: 03-11-2024 take 1 tablet by mouth once daily in the morning Furosemide 40 mg tablet Discontinued 40 mg PO EVERY MORNING 30 January 14, 2024 1:00am March 11, 2024 3:23pm handicap placard (20 sources) Start: 05-25-[address] Active 0 .ROUTE .COMPLEX 1 May 25, 2021 11:40am Duration 5 years for reduced mobility Start: 05-25-[address] Active 0 .ROUTE .COMPLEX 1 0 May 25, 2021 12:00am Debility Other malaise Duration 5 years for reduced mobility Complies with drug therapy Start: 05-25-2021 Start: 05-25-[address] Active 0 .ROUTE .COMPLEX 1 0 May 25, 2021 12:00am Debility Other malaise Duration 5 years for reduced mobility Start: 05-25-[address] Active 0 .ROUTE .COMPLEX 1 May 24, 2021 11:00pm Duration 5 years for reduced mobility Start: 05-25-[address] Active 0 .ROUTE .COMPLEX 1 May 25, 2021 12:00am Duration 5 years for reduced mobility 3 ml insulin glargine 100 unt/ml pen injector (20 sources) Insulin Analog Start: 01-01-2022 End: 08-26-2024 Insulin Glargine (Basaglar Kwikpen U-100 Insulin) 100 unit/mL (3 mL) insulin pen Active 25 U SC EVERY MORNING August 26, 2024 12:00am Complies with drug therapy Start: 09-09-2020 End: 01-01-2022 Insulin Glargine (Lantus Tayla ostar U-100 Insulin) 100 unit/mL (3 mL) insulin pen Discontinued 40 U SC BEDTIME September 09, 2020 9:04am January 01, 2022 8:51am Type 1 diabetes mellitus without complications e10.9 Start: 12-04-2019 End: 09-09-2020 Insulin Glargine (Lantus Tayla ostar U-100 Insulin) 100 unit/mL (3 mL) insulin pen Discontinued 30 U SC BEDTIME December 04, 2019 9:43am September 09, 2020 9:05am Type 1 diabetes mellitus without complications e10.9 Start: 09-19-2018 End: 12-04-2019 Insulin Glargine (Lantus Tayla ostar U-100 Insulin) 100 unit/mL (3 mL) insulin pen Discontinued 25 U SC BEDTIME September 19, 2018 9:17am December 04, 2019 9:44am Type 1 diabetes mellitus without complications e10.9 Start: 05-14-2018 End: 09-19-2018 Insulin Glargine (Lantus Tayla ostar U-100 Insulin) 100 unit/mL (3 mL) insulin pen Discontinued 31 U SC DAILY May 14, 2018 2:43pm September 19, 2018 9:24am Type 1 diabetes mellitus without complications e10.9 Start: 01-27-2018 End: 05-14-2018 Insulin Glargine (Lantus Tayla ostar U-100 Insulin) 100 unit/mL (3 mL) insulin pen Discontinued 33 U SC DAILY 30 3 January 27, 2018 5:52pm May 14, 2018 2:45pm Type 1 diabetes mellitus without complications e10.9 Start: 06-27-2017 End: 01-27-2018 Insulin Glargine (Lantus U-1 00 Insulin) 100 unit/mL solution Discontinued 33 U SC daily 30 June 27, 2017 2:47pm January 22, 2018 2:29pm Type 1 diabetes mellitus without complications Insulin [place] (Disposable) (12 sources) Start: 01-25-2021 Insulin Needle s (Disposable) Active 0 .ROUTE .MEDSUPPLY January 25, 2021 12:29pm As directed Start: 01-25-2021 Insulin Needle s (Disposable) Active 0 .ROUTE .MEDSUPPLY January 25, 2021 12:00am As directed Start: 01-25-2021 Insulin Needle s (Disposable) Active 0 .ROUTE .MEDSUPPLY January 25, 2021 1:00am As directed Insulin Syr/Ndl U100 Half Ma rk (12 sources) Start: 01-25-2021 Insulin Syr/Nd l U100 Half [place] Active 0 .ROUTE .MEDSUPPLY January 25, 2021 12:37pm As directed Start: 01-25-2021 Insulin Syr/Nd l U100 Half [place] Active 0 .ROUTE .MEDSUPPLY January 25, 2021 12:00am As directed Start: 01-25-2021 Insulin Syr/Nd l U100 Half [place] Active 0 .ROUTE .MEDSUPPLY 100 January 25, 2021 1:00am As directed levocetirizine dihydrochloride 5 mg oral tablet (1 source) Histamine-1 Receptor Antagonist Start: 12-17-2024 take 1 tablet by mouth once daily Levocetirizine (Xyzal) 5 mg tablet Active 5 mg PO daily 30 2 December 17, 2024 12:00am Complies with drug therapy [place]-3 Fatty Acids (Fish Oil Concentrate) 1,000 mg capsule (20 sources) Start: 12-04-2019 take 1 capsule by mouth once daily [place]-3 Fatty Acids (Fish Oil Concentrate) 1,000 mg capsule Active 1000 MG PO DAILY December 04, 2019 9:42am Start: 12-04-2019 End: 01-16-2024 take 1 capsule by mouth once daily [place]-3 Fatty Acids (Fish Oil Concentrate) 1,000 mg capsule Discontinued 1000 mg PO DAILY December 04, 2019 12:00am January 16, 2024 3:03pm Start: 12-04-2019 take 1 capsule by [facility] once daily [place]-3 Fatty Acids (Fish Oil Concentrate) 1,000 mg capsule Active 1000 MG PO DAILY December 03, 2019 11:00pm Start: 12-04-2019 take 1 capsule by [facility] once daily [place]-3 Fatty Acids (Fish Oil Concentrate) 1,000 mg capsule Active 1000 MG PO DAILY December 04, 2019 12:00am omeprazole 40 mg delayed release oral capsule (20 sources) Proton Pump Inhibitor Start: 05-07-2024 End: 05-19-2024 take 1 capsule by mouth once daily as needed for gastroesophageal reflux disease Omeprazole 40 mg capsule,delayed release(DR/EC) Active 40 mg PO daily as needed for gerd May 19, 2024 10:33am Complies with drug therapy Start: 05-22-2023 End: 01-09-2024 take 1 capsule by mouth once daily Omeprazole 40 mg capsule,delayed release(DR/EC) Discontinued 40 mg PO DAILY 90 0 May 22, 2023 12:00am January 09, 2024 8:35pm sildenafil 25 mg oral tablet (20 sources) Phosphodiesterase 5 Inhibitor Start: 11-11-2024 End: 11-11-2024 Sildenafil (Viagra) 25 mg tablet Active 25 mg PO daily as needed for sexual activity 20 November 11, 2024 2:14pm administer 30 minutes to 4 hours before activity Complies with drug therapy Start: 09-19-2018 End: 11-01-2021 Sildenafil 100 mg tablet Dis continued 50 mg PO DAILY as needed for Dizziness September 19, 2018 12:00am November 01, 2021 10:40am Start: 09-19-2018 End: 11-01-2021 take 50 mg by mouth once daily Sildenafil Discontinued 50 MG PO DAILY September 19, 2018 12:00am November 01, 2021 10:40am Completed/Discontinued Medications Medication Drug Class(es) Dates Sig (Normalized) Sig (Original) acetaminophen 325 mg / HYDROcodone bitartrate 5 mg oral tablet (20 sources) Opioid Agonist Start: 11-07-2020 End: 12-06-2020 Hydrocodone-Acetami nophen 5-325 mg tablet Discontinued 1 {tbl} PO Q4H as needed for pain 20 5 0 November 07, 2020 December 06, 2020 11:05am Fracture of multiple ribs Start: 11-07-2020 End: 12-06-2020 take 1 tablet by mouth every four hours Hydrocodone-Acetaminophen Discontinued 1 TABLET PO Q4H 20 November 07, 2020 December 06, 2020 11:05am [id number] 200 actuat albuterol 0.09 mg/actuat metered dose inhaler (13 sources) beta2-Adrenergic Agonist Start: 04-24-2023 End: 08-04-2024 Albuterol Sulfate 90 mcg/actuation HFA aerosol inhaler Discontinued 2 NMA INHALATION EVERY 4-6 HOURS as needed for shortness of breath or wheezing 6.7 0 April 24, 2023 1:00am August 04, 2024 2:18pm Start: 04-24-2023 take 1 puff(s) by in halation every four to six hours Albuterol Sulfate Active 2 PUFF INHALATION EVERY 4-6 HOURS 6.7 April 24, 2023 1:00am 1 ml alirocumab 75 mg/ml auto-injector (20 sources) PCSK9 Inhibitor Start: 11-24-2021 End: 02-27-2022 Alirocumab (Praluent Pen) 75 mg/mL pen injector Discontinued 75 mg SC Q14D 2 November 24, 2021 12:00am February 27, 2022 9:31am amLODIPine 10 mg oral tablet (20 sources) Dihydropyridine Calcium Channel Demarco Start: 09-25-2024 End: 10-07-2024 take 1 tablet by mouth once daily Amlodipine 10 mg tablet Discontinued 10 mg PO daily 90 3 September 30, 2024 6:37pm October 07, 2024 4:44pm Start: 08-26-2024 End: 09-25-2024 take 2 tablets by mouth once daily Amlodipine 5 mg tablet Discontinued 10 mg PO DAILY August 26, 2024 9:52am September 25, 2024 8:42am Start: 08-26-2024 End: 08-26-2024 take 7.5 mg by mouth once daily Amlodipine 5 mg tablet Discontinued 7.5 mg PO DAILY August 26, 2024 9:21am August 26, 2024 9:52am Start: 11-24-2021 End: 08-26-2024 take 1 tablet by mouth once daily Amlodipine 5 mg tablet Discontinued 5 mg PO DAILY November 13, 2023 8:11am August 26, 2024 9:24am Start: 05-22-2021 End: 11-01-2021 take 5 mg by mouth once daily Amlodipine 10 mg tablet Discontinued 5 mg PO DAILY May 22, 2021 11:32am November 01, 2021 10:38am Start: 05-22-2021 End: 11-01-2021 take 5 mg by mouth once daily Amlodipine Discontinued 5 MG PO DAILY May 22, 2021 11:32am November 01, 2021 10:38am Start: 05-06-2019 End: 05-22-2021 take 1 tablet by mouth once daily Amlodipine 10 mg tablet Discontinued 10 mg PO DAILY 90 July 27, 2020 9:07am May 22, 2021 11:34am Start: 11-12-2018 End: 04-10-2019 take 1 tablet by mouth once daily Amlodipine 10 mg tablet Discontinued 10 mg PO DAILY 90 November 12, 2018 1:42pm April 10, 2019 12:09pm Start: 11-07-2018 End: 11-12-2018 take 1 tablet by mouth once daily Amlodipine 5 mg tablet Discontinued 5 mg PO DAILY November 07, 2018 12:00am November 12, 2018 1:43pm Start: 09-19-2018 End: 11-07-2018 take 1 tablet by mouth once daily Amlodipine 10 mg tablet Discontinued 10 mg PO DAILY 90 September 19, 2018 10:22am November 07, 2018 11:37am Start: 09-19-2018 End: 09-19-2018 take 1 tablet by mouth once daily Amlodipine 5 mg tablet Discontinued 5 mg PO DAILY September 19, 2018 12:00am September 19, 2018 10:23am Start: 05-27-2018 End: 07-24-2018 take 1 tablet by mouth once daily Amlodipine 5 mg tablet Discontinued 5 mg PO DAILY May 27, 2018 12:00am July 24, 2018 2:49pm Start: 05-14-2018 End: 05-14-2018 take 1 tablet by mouth once daily Amlodipine 5 mg tablet Discontinued 5 mg PO DAILY 30 May 14, 2018 12:00am May 14, 2018 3:49pm apple cider vinegar 500 mg oral tablet (17 sources) Start: 02-27-2022 End: 05-16-2022 take 1 tablet by mouth once daily Apple Cider Vinegar 500 mg tablet Discontinued mg PO DAILY February 27, 2022 1:00am May 16, 2022 9:59am Start: 02-27-2022 End: 05-16-2022 take 1 mg by mouth once daily Apple Cider Vinegar Disc ontinued MG PO DAILY February 27, 2022 1:00am May 16, 2022 9:59am aspirin 81 mg delayed release oral tablet (20 sources) Platelet Aggregation Inhibitor, Nonsteroidal Anti-inflammatory Drug Start: 09-19-2018 End: 01-09-2024 take 1 tablet by mouth once daily Aspirin 81 mg tablet,delayed release (DR/EC) Discontinued 81 mg PO DAILY September 19, 2018 12:00am January 09, 2024 8:33pm Start: 08-29-2017 End: 07-24-2018 take 1 tablet by mouth once daily Aspirin 81 mg tablet,chewable Discontinued 81 mg PO daily August 29, 2017 12:00am July 24, 2018 2:49pm azithromycin 250 mg oral tablet (20 sources) Macrolide Antimicrobial Start: 04-26-2023 End: 05-01-2023 Azithromycin 250 mg tablet Discontinued 0 PO .COMPLEX 6 0 April 26, 2023 1:00am May 01, 2023 9:05am For 250 mg dose pack: take 500 mg today (day 1), then 250 mg for 4 days (days 2-5) PO Start: 04-26-2023 End: 05-01-2023 Azithromycin Discontinued 0 PO .COMPLEX 6 April 26, 2023 1:00am May 01, 2023 9:05am For 250 mg dose pack: take 500 mg today (day 1), then 250 mg for 4 days (days 2-5) PO Start: 12-26-2022 End: 04-01-2023 take 2-5 tablets by mouth once daily Azithromycin 250 mg tablet Discontinued 0 PO .COMPLEX 6 December 26, 2022 12:00am April 01, 2023 11:42am take 500 mg today (day 1), then 250 mg for 4 days (days 2-5) PO Start: 12-26-2022 End: 04-01-2023 Azithromycin 250 mg tablet Discontinued 250 mg PO daily 12 0 February 19, 2023 1:00am April 01, 2023 11:39am 2 tablets today, then 1 tablet daily on days 2 through 11 augmented betamethasone 0.5 mg/ml topical cream (20 sources) Corticosteroid Start: 06-19-2018 End: 05-06-2019 Betamethasone, Augmented 0.05 % cream Discontinued TOPICAL DAILY 50 20 0 September 19, 2018 9:22am May 06, 2019 10:10am Blood Pressure Monitor (12 sources) Start: 01-05-2019 End: 11-07-2020 Blood Pressure Monitor Discontinued 0 .ROUTE .MEDSUPPLY January 05, 2019 3:56pm November 07, 2020 1:36pm Check blood pressure daily for hypertension I10 Start: 01-05-2019 End: 11-07-2020 Blood Pressure Monitor Disco ntinued 0 .ROUTE .MEDSUPPLY January 05, 2019 12:00am November 07, 2020 12:36pm Check blood pressure daily for hypertension I10 Start: 01-05-2019 End: 11-07-2020 Blood Pressure Monitor Disco ntinued 0 .ROUTE .MEDSUPPLY January 05, 2019 1:00am November 07, 2020 1:36pm Check blood pressure daily for hypertension I10 Blood Pressure Monitor kit (10 sources) Start: 01-05-2019 End: 11-07-2020 Blood Pressure Monitor kit Discontinued 0 .ROUTE .MEDSUPPLY 1 0 January 05, 2019 1:00am November 07, 2020 1:36pm Essential (primary) hypertension Check blood pressure daily for hypertension I10 Start: 01-05-2019 End: 11-07-2020 Blood Pressure Monitor kit D iscontinued 0 .ROUTE .MEDSUPPLY 1 January 05, 2019 1:00am November 07, 2020 1:36pm Check blood pressure daily for hypertension I10 chlorthalidone 25 mg oral tablet (20 sources) Thiazide-like Diuretic Start: 01-02-2022 End: 02-27-2022 Chlorthalidone 25 mg tablet Discontinued 12.5 mg PO DAILY January 02, 2022 8:59am February 27, 2022 9:29am Pt received from [employer] Start: 01-02-2022 End: 02-27-2022 take 12.5 mg by mouth once daily Chlorthalidone Discontinued 12.5 MG PO DAILY January 02, 2022 8:59am February 27, 2022 9:29am Start: 11-24-2021 End: 01-02-2022 take 1 tablet by mouth once daily Chlorthalidone 25 mg tablet Discontinued 25 mg PO DAILY December 05, 2021 12:00am January 02, 2022 9:00am Pt received from [employer] colchicine 0.6 mg oral tablet (20 sources) Start: 04-10-2019 End: 05-06-2019 take 2 tablets by mouth once daily, then take 1 tablet by mouth every hour Colchicine (Colcrys) 0.6 mg tablet Discontinued 0.6 mg PO DAILY 3 2 April 10, 2019 1:00am May 06, 2019 10:10am 1.2 mg x 1 dose, then .6 mg 1 hour later cyclobenzaprine hydrochloride 10 mg oral tablet (20 sources) Muscle Relaxant Start: 08-20-2024 End: 10-28-2024 take 1 tablet by mouth three times daily as needed for muscle spasms Cyclobenzaprine 10 mg tablet Discontinued 10 mg PO THREE TIMES A DAY as needed for muscle spasm 90 2 August 20, 2024 11:28am October 28, 2024 9:46am Strain of neck muscle Strain of muscle, fascia and tendon at neck level, initial encounter Start: 03-20-2019 End: 04-10-2019 take 1 tablet by mouth three times daily as needed for muscle spasms Cyclobenzaprine 10 mg tablet Discontinued 10 mg PO THREE TIMES A DAY as needed for muscle spasm 90 2 March 20, 2019 1:00am April 10, 2019 11:31am 12 hr dextromethorphan hydrobromide 60 mg / guaiFENesin 1200 mg extended release oral tablet (20 sources) Uncompetitive E-anrkrs-N-aspartate Receptor Antagonist, Sigma-1 Agonist Start: 10-26-2020 End: 12-06-2020 Dextromethorphan-Guaifenesin 60-1,200 mg tablet extended release 12 hr Discontinued 1 {tbl} PO Q12H as needed for congestion, cough 14 0 October 26, 2020 12:00am December 06, 2020 11:04am Start: 10-26-2020 End: 12-06-2020 take 1 tablet by mouth every twelve hours Dextromethorphan-Guaifenesin Discontinue d 1 TABLET PO Q12H October 26, 2020 12:00am December 06, 2020 11:04am dicyclomine hydrochloride 10 mg oral capsule (20 sources) Anticholinergic Start: 01-30-2018 End: 05-14-2018 take 2 capsules by mouth three times daily before mealtime Dicyclomine 10 MG capsule Discontinued 20 mg PO THREE TIMES DAILY BEFORE MEALS 40 0 January 30, 2018 1:00am May 14, 2018 2:53pm Start: 01-30-2018 End: 05-14-2018 take 20 mg by mouth three times daily before mealtime Dicyclomine Discontinued 20 MG PO THREE TIMES DAILY BEFORE MEALS 40 January 30, 2018 1:00am May 14, 2018 2:53pm doxazosin 4 mg oral tablet (20 sources) alpha-Adrenergic Demarco Start: 05-26-2024 End: 08-04-2024 take 1 tablet by mouth at bedtime Doxazosin 4 mg tablet Discontinued 4 mg PO AT BEDTIME 90 3 May 26, 2024 12:00am August 04, 2024 5:34pm Start: 04-17-2024 End: 05-26-2024 take 1 tablet by mouth at bedtime Doxazosin 2 mg tablet Discontinued 2 mg PO AT BEDTIME 90 3 April 17, 2024 1:00am May 26, 2024 11:22am Start: 05-02-2022 End: 04-17-2024 take 1 tablet by mouth at bedtime Doxazosin 1 mg tablet Discontinued 1 mg PO AT BEDTIME 90 4 December 18, 2023 2:57pm April 17, 2024 1:07pm Start: 01-24-2022 End: 05-02-2022 take 1 mg by mouth at bedtime Doxazosin Discontinued 1 MG PO AT BEDTIME January 24, 2022 4:32pm May 02, 2022 12:26pm Start: 01-05-2022 End: 05-02-2022 take 1 mg by mouth at bedtime Doxazosin 2 mg tablet Di scontinued 1 mg PO AT BEDTIME 30 January 24, 2022 4:32pm May 02, 2022 12:26pm Start: 01-02-2022 End: 01-02-2022 take 4 mg by mouth once daily Doxazosin Discontinued 4 MG PO DAILY 90 January 02, 2022 9:00am January 02, 2022 9:02am Start: 01-02-2022 End: 01-05-2022 take 1 tablet by mouth at bedtime Doxazosin 4 mg tablet Discontinued 4 mg PO AT BEDTIME 90 January 03, 2022 11:05am January 05, 2022 4:11pm Start: 01-01-2022 End: 01-02-2022 take 2 tablets by mouth once daily Doxazosin 2 mg tablet Discontinued 4 mg PO DAILY 90 3 January 02, 2022 9:00am January 02, 2022 9:02am Start: 05-06-2019 End: 05-06-2019 take 1 tablet by mouth once daily Doxazosin 2 mg tablet Discontinued 2 mg PO DAILY May 06, 2019 10:14am May 06, 2019 10:23am Start: 04-10-2019 End: 05-06-2019 take 1 tablet by mouth twice daily Doxazosin 2 mg tablet Discontinued 2 mg PO TWICE A DAY 60 1 April 10, 2019 1:00am May 06, 2019 10:14am Start: 05-14-2018 End: 07-24-2018 take 1 tablet by mouth once daily Doxazosin 2 mg tablet Discontinued 2 mg PO DAILY 30 0 May 14, 2018 12:00am July 24, 2018 2:50pm doxycycline hyclate 100 mg oral capsule (20 sources) Tetracycline-class Drug Start: 04-21-2023 End: 04-27-2023 take 1 capsule by mouth twice daily Doxycycline Hyclate 100 mg capsule Discontinued 100 mg PO TWICE A DAY 6 3 0 April 24, 2023 11:59am April 26, 2023 1:00am April 27, 2023 1:17am Start: 08-05-2019 End: 12-04-2019 take 1 capsule by mouth twice daily Doxycycline Hyclate 100 mg capsule Discontinued 100 mg PO TWICE A DAY 20 0 August 05, 2019 12:00am December 04, 2019 9:40am 1 ml evolocumab 140 mg/ml auto-injector (20 sources) PCSK9 Inhibitor Start: 06-06-2023 End: 11-13-2024 Evolocumab (Repatha Sureclick) 140 mg/mL pen injector Discontinued 140 mg SC every 2 weeks 2 June 19, 2024 9:59am November 13, 2024 3:14pm ezetimibe 10 mg oral tablet (20 sources) Dietary Cholesterol Absorption Inhibitor Start: 11-01-2021 End: 11-28-2021 take 1 tablet by mouth once daily Ezetimibe (Zetia) 10 mg tablet Discontinued 10 mg PO DAILY 90 2 November 01, 2021 12:00am November 28, 2021 3:41pm finasteride 5 mg oral tablet (20 sources) 5-alpha Reductase Inhibitor Start: 05-14-2018 End: 07-24-2018 take 1 tablet by mouth once daily Finasteride 5 mg tablet Discontinued 5 mg PO DAILY 30 May 14, 2018 12:00am July 24, 2018 2:50pm fluticasone propionate 0.05 mg/actuat metered dose nasal spray (20 sources) Corticosteroid Start: 09-19-2018 End: 10-19-2024 Fluticasone Propionate 50 mcg/actuation spray,suspension Discontinued 1 NMA INTRANASAL DAILY as needed for nasal congestion 16 December 20, 2023 2:15pm October 19, 2024 12:06pm Start: 09-19-2018 End: 08-15-2022 Fluticasone Propionate Disco ntinued 1 SPRAY INTRANASAL DAILY October 26, 2020 11:30am March 01, 2022 10:21am gemfibrozil 600 mg oral tablet (20 sources) Peroxisome Proliferator Receptor alpha Agonist Start: 06-10-2020 End: 05-22-2021 take 1 tablet by mouth twice daily Gemfibrozil 600 mg tablet Discontinued 600 mg PO TWICE A DAY 60 June 10, 2020 12:00am May 22, 2021 11:32am Start: 03-15-2020 End: 04-27-2020 take 1 tablet by mouth twice daily Gemfibrozil 600 mg tablet Discontinued 600 mg PO TWICE A DAY 60 March 15, 2020 1:00am April 27, 2020 10:32am hydrALAZINE hydrochloride 25 mg oral tablet (10 sources) Arteriolar Vasodilator Start: 01-16-2024 End: 03-11-2024 take 1 tablet by mouth twice daily Hydralazine 25 mg tablet Discontinued 25 mg PO TWICE A DAY 60 January 16, 2024 1:00am March 11, 2024 3:24pm hydroCHLOROthiazide 25 mg oral tablet (20 sources) Thiazide Diuretic Start: 08-14-2024 End: 08-26-2024 take 1 tablet by mouth once daily Hydrochlorothiazide 25 mg tablet Discontinued 25 mg PO daily 90 August 17, 2024 9:36am August 26, 2024 9:20am Start: 05-07-2024 End: 05-26-2024 take 1 tablet by mouth once daily Hydrochlorothiazide 25 mg tablet Discontinued 25 mg PO daily May 07, 2024 1:00am May 26, 2024 11:24am Start: 08-02-2023 End: 01-16-2024 take 1 tablet by mouth once daily Hydrochlorothiazide 25 mg tablet Discontinued 25 mg PO DAILY 90 December 25, 2023 10:43am January 16, 2024 3:01pm Start: 11-24-2021 End: 11-24-2021 take 1 tablet by mouth once daily Hydrochlorothiazide 12.5 mg tablet Discontinued 12.5 mg PO DAILY 90 November 24, 2021 9:27am November 24, 2021 9:54am Start: 05-06-2019 End: 11-01-2021 take 1 tablet by mouth once daily Hydrochlorothiazide 12.5 mg tablet Discontinued 12.5 mg PO DAILY 90 0 May 25, 2021 11:34am November 01, 2021 10:39am icosapent ethyl 1000 mg oral capsule (20 sources) Start: 01-05-2019 End: 04-10-2019 Icosapent Ethyl (Vascepa) 1 gram capsule Discontinued 2 g PO TWICE A DAY 180 3 January 05, 2019 1:00am April 10, 2019 11:31am 3 ml insulin lispro 100 unt/ml pen injector (20 sources) Insulin Analog Start: 08-29-2017 End: 12-04-2019 Insulin Lispro (Humalog Kwikpen Insulin) 100 unit/mL insulin pen Discontinued 0 SC THREE TIMES A DAY 44 3 January 27, 2018 5:52pm December 04, 2019 9:44am Type 1 diabetes mellitus without complications e10.9 12 units to 16 units SC TID; 12 units to 16 units SC TID Insulin [place] (Disposable) 30 X 3/4 needle (10 sources) Start: 01-25-2021 End: 08-04-2024 Insulin [place] (Disposable) 30 X 3/4 needle Discontinued 0 .ROUTE .MEDSUPPLY January 25, 2021 1:00am August 04, 2024 2:21pm As directed Start: 01-25-2021 Insulin Needle s (Disposable) 30 X 3/4 needle Active 0 .ROUTE .MEDSUPPLY January 25, 2021 1:00am As directed levothyroxine sodium 0.15 mg oral tablet (20 sources) l-Thyroxine Start: 10-04-2020 End: 10-19-2024 take 1 tablet by mouth once daily Levothyroxine 150 mcg tablet Discontinued 150 ug PO DAILY 90 1 April 23, 2024 11:13am October 19, 2024 12:07pm Start: 04-27-2020 End: 10-04-2020 Levothyroxine 137 mcg tablet Discontinued 150 ug PO DAILY April 27, 2020 10:31am October 04, 2020 11:46am Start: 04-27-2020 End: 10-04-2020 take 150 ug by mouth once daily Levothyroxine Disconti nued 150 MCG PO DAILY April 27, 2020 10:31am October 04, 2020 11:46am Start: 06-25-2018 End: 04-27-2020 take 1 tablet by mouth once daily Levothyroxine 137 mcg tablet Discontinued 137 ug PO DAILY 90 3 June 19, 2019 8:25am April 27, 2020 10:33am Start: 06-13-2017 End: 06-25-2018 take 1 capsule by mouth once daily Levothyroxine 137 mcg capsule Discontinued 137 ug PO daily 90 June 24, 2018 5:06pm June 25, 2018 11:34am Hypothyroidism, unspecified losartan potassium 100 mg oral tablet (20 sources) Angiotensin 2 Receptor Demarco Start: 11-12-2018 End: 11-11-2024 take 1 tablet by mouth once daily Losartan 100 mg tablet Discontinued 100 mg PO DAILY 90 June 02, 2024 2:01pm November 11, 2024 10:27am Start: 09-19-2018 End: 11-07-2018 take 1 tablet by mouth once daily Losartan 100 mg tablet Discontinued 100 mg PO DAILY September 19, 2018 12:00am November 07, 2018 11:46am Start: 08-29-2017 End: 07-24-2018 take 1 tablet by mouth once daily Losartan 100 mg tablet Discontinued 100 mg PO daily 90 December 03, 2017 10:21am July 24, 2018 2:51pm methylPREDNISolone 4 mg oral tablet (20 sources) Corticosteroid Start: 11-07-2022 End: 11-13-2022 take 1 tablet by mouth once Methylprednisolone (Medrol (Ko)) 4 mg tablets,dose pack Discontinued 4 mg PO per package directions 21 6 0 November 07, 2022 12:00am November 12, 2022 12:00am November 13, 2022 12:03am Start: 03-20-2019 End: 04-10-2019 take 1 tablet by mouth once Methylprednisolone (Medrol (Ko)) 4 mg tablets,dose pack Discontinued 0 PO per package directions March 20, 2019 1:00am April 10, 2019 11:32am PO PER PKG DIR metoprolol tartrate 25 mg oral tablet (20 sources) beta-Adrenergic Demarco Start: 01-02-2022 End: 03-11-2024 Metoprolol Tartrate 25 mg tablet Discontinued 12.5 mg PO TWICE A DAY 90 December 16, 2023 3:19pm March 11, 2024 3:41pm Start: 01-02-2022 End: 05-07-2022 take 12.5 mg by mouth twice daily Metoprolol Tartrate Discontinued 12.5 MG PO TWICE A DAY 90 May 02, 2022 12:26pm May 07, 2022 12:43pm Start: 11-24-2021 End: 01-02-2022 Metoprolol Tartrate 50 mg ta blet Discontinued 25 mg PO TWICE A DAY 180 3 November 24, 2021 9:54am January 02, 2022 8:41am Start: 11-24-2021 End: 01-02-2022 take 25 mg by mouth twice daily Metoprolol Tartrate Di scontinued 25 MG PO TWICE A DAY 180 November 24, 2021 9:54am January 02, 2022 8:41am Start: 12-04-2019 End: 11-24-2021 take 1 tablet by mouth twice daily Metoprolol Tartrate 50 mg tablet Discontinued 50 mg PO TWICE A DAY 180 3 September 13, 2021 2:39pm November 24, 2021 10:04am Start: 11-12-2018 End: 12-04-2019 take 1 tablet by mouth twice daily Metoprolol Tartrate 25 mg tablet Discontinued 25 mg PO TWICE A DAY August 11, 2019 1:16pm December 04, 2019 9:41am Start: 09-19-2018 End: 11-12-2018 take 1 tablet by mouth twice daily Metoprolol Tartrate 50 mg tablet Discontinued 50 mg PO TWICE A DAY 180 3 September 19, 2018 10:23am November 12, 2018 1:43pm Start: 07-24-2018 End: 09-19-2018 Metoprolol Tartrate 50 mg ta blet Discontinued 25 mg PO TWICE A DAY 90 3 September 17, 2018 2:30pm September 19, 2018 9:19am Essential (primary) hypertension Start: 07-24-2018 End: 09-19-2018 take 25 mg by mouth twice daily Metoprolol Tartrate Di scontinued 25 MG PO TWICE A DAY 90 September 17, 2018 2:30pm September 19, 2018 9:19am Start: 05-14-2018 End: 07-24-2018 take 1 tablet by mouth twice daily Metoprolol Tartrate 50 mg tablet Discontinued 50 mg PO TWICE A DAY 90 3 May 14, 2018 3:48pm July 24, 2018 3:19pm Essential (primary) hypertension Start: 06-13-2017 End: 05-14-2018 take 1 tablet by mouth once Metoprolol Tartrate 100 mg tablet Discontinued 100 mg PO ONCE 90 3 June 13, 2017 1:03pm May 14, 2018 3:50pm Essential (primary) hypertension Nicotine (20 sources) Cholinergic Nicotinic Agonist Start: 04-11-2022 End: 05-16-2022 apply 21 mg transdermal route once daily, then apply 14 mg transdermal route once daily, then apply 7 mg transdermal route once daily Nicotine 21-14-7 mg/24 hr patch, TD daily, sequential Discontinued 1 NMA TD daily 70 0 April 11, 2022 1:00am May 16, 2022 10:00am Tobacco use Apply 21 mg patch daily 6 weeks, then 14 mg patch daily 2 weeks, then 7 mg patch daily 2 weeks. Do not smoke while on patch. Start: 04-11-2022 End: 05-16-2022 apply 21 mg transdermal route once daily, then apply 14 mg transdermal route once daily, then apply 7 mg transdermal route once daily Nicotine 21-14-7 mg/24 hr patch, TD daily, sequential Discontinued 1 NMA TD daily April 11, 2022 1:00am May 16, 2022 10:00am Apply 21 mg patch daily 6 weeks, then 14 mg patch daily 2 weeks, then 7 mg patch daily 2 weeks. Do not smoke while on patch. Start: 04-11-2022 End: 05-16-2022 apply 21 mg transdermal route once daily, then apply 14 mg transdermal route once daily, then apply 7 mg transdermal route once daily Nicotine Discontinued 1 PATCH TD daily April 11, 2022 12:00am May 16, 2022 9:00am Apply 21 mg patch daily 6 weeks, then 14 mg patch daily 2 weeks, then 7 mg patch daily 2 weeks. Do not smoke while on patch. Start: 04-11-2022 End: 05-16-2022 apply 21 mg transdermal route once daily, then apply 14 mg transdermal route once daily, then apply 7 mg transdermal route once daily Nicotine Discontinued 1 PATCH TD daily April 11, 2022 1:00am May 16, 2022 10:00am Apply 21 mg patch daily 6 weeks, then 14 mg patch daily 2 weeks, then 7 mg patch daily 2 weeks. Do not smoke while on patch. Start: 04-11-2022 apply 21 mg transder mal route once daily, then apply 14 mg transdermal route once daily, then apply 7 mg transdermal route once daily Nicotine Active 1 PATCH TD daily April 11, 2022 12:00am Apply 21 mg patch daily 6 weeks, then 14 mg patch daily 2 weeks, then 7 mg patch daily 2 weeks. Do not smoke while on patch. Start: 02-20-2021 apply 1 dose transde rmal route once daily, then apply 1 dose transdermal route once daily Nicotine Active 0 TD .COMPLEX 56 February 20, 2021 4:48pm apply 1-21 mg NICOTINE PATCH daily for 28 days; follow with 1-14 mg PATCH daily for 14 days, then 1-7mg PATCH daily for 14 days transdermal Start: 02-20-2021 End: 11-24-2021 apply 1 dose transdermal route once daily, then apply 1 dose transdermal route once daily Nicotine 21-14-7 mg/24 hr patch, TD daily, sequential Discontinued 0 TD .COMPLEX 56 0 February 20, 2021 1:00am November 24, 2021 9:08am apply 1-21 mg NICOTINE PATCH daily for 28 days; follow with 1-14 mg PATCH daily for 14 days, then 1-7mg PATCH daily for 14 days transdermal Start: 02-20-2021 End: 11-24-2021 apply 1 dose transdermal route once daily, then apply 1 dose transdermal route once daily Nicotine 21-14-7 mg/24 hr patch, TD daily, sequential Discontinued 0 TD .COMPLEX 56 February 20, 2021 1:00am November 24, 2021 9:08am apply 1-21 mg NICOTINE PATCH daily for 28 days; follow with 1-14 mg PATCH daily for 14 days, then 1-7mg PATCH daily for 14 days transdermal Start: 02-20-2021 End: 11-24-2021 apply 1 dose transdermal route once daily, then apply 1 dose transdermal route once daily Nicotine Discontinued 0 TD .COMPLEX 56 February 20, 2021 12:00am November 24, 2021 8:08am apply 1-21 mg NICOTINE PATCH daily for 28 days; follow with 1-14 mg PATCH daily for 14 days, then 1-7mg PATCH daily for 14 days transdermal Start: 02-20-2021 End: 11-24-2021 apply 1 dose transdermal route once daily, then apply 1 dose transdermal route once daily Nicotine Discontinued 0 TD .COMPLEX 56 February 20, 2021 1:00am November 24, 2021 9:08am apply 1-21 mg NICOTINE PATCH daily for 28 days; follow with 1-14 mg PATCH daily for 14 days, then 1-7mg PATCH daily for 14 days transdermal Start: 02-20-2021 apply 1 dose transde rmal route once daily, then apply 1 dose transdermal route once daily Nicotine Active 0 TD .COMPLEX 56 February 20, 2021 1:00am apply 1-21 mg NICOTINE PATCH daily for 28 days; follow with 1-14 mg PATCH daily for 14 days, then 1-7mg PATCH daily for 14 days transdermal Start: 06-19-2018 End: 07-24-2018 Nicotine 7 mg/24 hr patch 24 hour Discontinued 1 NMA TD Q24H 14 3 June 19, 2018 12:00am July 24, 2018 2:49pm Start: 06-19-2018 End: 07-24-2018 apply 1 dose transdermal route every twenty-four hours Nicotine Discontinued 1 PATCH TD Q24H 14 June 19, 2018 12:00am July 24, 2018 2:49pm omega-3 acid ethyl esters (20 sources) Start: 09-19-2018 End: 01-05-2019 omega-3 acid ethyl esters Discontinued PO September 19, 2018 9:21am January 05, 2019 3:50pm Start: 09-19-2018 End: 01-05-2019 omega-3 acid ethyl esters Di scontinued PO September 18, 2018 11:00pm January 05, 2019 2:50pm Start: 09-19-2018 End: 01-05-2019 omega-3 acid ethyl esters Di scontinued PO September 19, 2018 12:00am January 05, 2019 3:50pm 24 hr oxybutynin chloride 10 mg extended release oral tablet (11 sources) Cholinergic Muscarinic Antagonist Start: 05-22-2023 End: 01-16-2024 take 1 tablet by mouth once daily Oxybutynin Chloride 10 mg tablet extended release 24hr Discontinued 10 mg PO DAILY May 22, 2023 12:00am January 16, 2024 3:03pm predniSONE 20 mg oral tablet (20 sources) Start: 04-24-2023 End: 05-01-2023 take 1 tablet by mouth twice daily Prednisone 20 mg tablet Discontinued 20 mg PO TWICE A DAY 14 0 April 24, 2023 1:00am May 01, 2023 9:05am Start: 01-30-2018 End: 05-14-2018 take 2 tablets by mouth once daily at mealtime Prednisone 20 MG tablet Discontinued 40 mg PO DAILY January 30, 2018 1:00am May 14, 2018 2:44pm With food Start: 01-30-2018 End: 05-14-2018 take 40 mg by mouth once daily at mealtime Prednisone Discontinued 40 MG PO DAILY January 30, 2018 1:00am May 14, 2018 2:44pm With food promethazine hydrochloride 25 mg rectal suppository (20 sources) Phenothiazine Start: 08-29-2017 End: 05-14-2018 Promethazine (Phenadoz) 25 mg suppository Discontinued 25 mg RC EVERY 6 HOURS as needed for Nausea August 29, 2017 12:00am May 14, 2018 2:45pm rosuvastatin calcium 5 mg oral tablet (20 sources) HMG-CoA Reductase Inhibitor Start: 11-28-2021 End: 01-01-2022 take 1 tablet by mouth once daily Rosuvastatin 5 mg tablet Discontinued 5 mg PO DAILY 31 01December 05, 2021 1:30pm January 01, 2022 8:43am Start: 06-19-2018 End: 11-12-2018 take 1 tablet by mouth once daily Rosuvastatin (Crestor) 10 mg tablet Discontinued 10 mg PO DAILY 90 June 19, 2018 12:00am November 12, 2018 1:12pm tadalafil 5 mg oral tablet (20 sources) Phosphodiesterase 5 Inhibitor Start: 08-15-2022 End: 03-11-2024 take 1 tablet by mouth once daily Tadalafil 5 mg tablet Discontinued 10 mg PO DAILY August 27, 2022 9:01am March 11, 2024 3:25pm Start: 08-15-2022 End: 08-27-2022 take 10 mg by mouth once daily Tadalafil Active 10 MG PO DAILY August 27, 2022 9:01am Problems Active Problems Problem Classification Problem Date Documented Da te Episodic/Chronic Abdominal pain (6 sources) Abdominal pain; Translations: [Unspecified abdominal pain] 11-11-2024 Episodic Cardiac dysrhythmias (14 sources) Cardiac arrhythmia; Translations: [Cardiac arrhythmia, unspecified] 05-01-2023 Chronic Cardiac dysrhythmias (20 sources) Bradycardia; Translations: [Bradycardia, unspecified] Onset: Episodic Chronic kidney disease (16 sources) Chronic kidney disease stage 3; Translations: [Stage 3 chronic kidney disease] 05-22-2023 Chronic Chronic kidney disease (1 source) Chronic kidney disease; Translations: [Chronic kidney disease, stage 3 unspecified] Onset: 4 Coronary atherosclerosis and other heart disease (20 sources) Coronary atherosclerosis; Translations: [Atherosclerotic heart disease of lumbee coronary artery without angina pectoris] Onset: 4 Chronic Comment on above: Diffuse coronary art sarahi disease with small vessels noted in the entire coronary vasculature. 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; Translations: [Type 1 diabetes mellitus with diabetic neuropathy, unspecified] Onset: 5 04-20-2020 Chronic Diabetes mellitus without complication (20 sources) Type 1 diabetes mellitus; Translations: [Type 1 diabetes mellitus without complications] Onset: 5 Chronic Disorders of lipid metabolism (20 sources) Mixed hyperlipidemia; Translations: [Mixed hyperlipidemia] Onset: 4 Chronic E Codes: Fall (20 sources) Fall; Translations: [Unspecified fall, initial encounter] 11-07-2020 Episodic Esophageal disorders (18 sources) Gastroesophageal reflux disease; Translations: [Gastro-esophageal reflux disease without esophagitis] Onset: 5 05-22-2023 Chronic Essential hypertension (20 sources) Essential hypertension; Translations: [Essential (primary) hypertension] Onset: 4 Chronic Genitourinary symptoms and ill-defined conditions (20 sources) Proteinuria; Translations: [Proteinuria, unspecified] 01-16-2021 Episodic Hyperplasia of prostate (20 sources) Benign prostatic hyperplasia; Translations: [Benign prostatic hyperplasia without lower urinary tract symptoms] Onset: 4 05-16-2022 Chronic Hypertension with complications and secondary hypertension (1 source) Hypertensive chronic kidney disease with stage 1 through stage 4 chronic kidney disease, or unspecified chronic kidney disease; Translations: [Hypertensive chronic kidney disease with stage 1 through stage 4 chronic kidney disease, or unspecified chronic kidney disease] Onset: 5 Chronic Malaise and fatigue (18 sources) Fatigue; Translations: [Other fatigue] 04-01-2023 Episodic Nonspecific chest pain (20 sources) Chest pain; Translations: [Chest pain, unspecified] 05-09-2020 Episodic Occlusion or stenosis of precerebral arteries (1 source) Occlusion and stenosis of left carotid artery; Translations: [Occlusion and stenosis of left carotid artery] Onset: Chronic Other aftercare (9 sources) Long-term current use of diuretic; Translations: [Encounter for therapeutic drug level monitoring] 05-27-2024 Episodic Other circulatory disease (12 sources) Disorder of carotid artery; Translations: [Disorder of arteries and arterioles, unspecified] 08-26-2024 Chronic Other diseases of kidney and ureters (20 sources) Kidney disease; Translations: [Disorder of kidney and ureter, unspecified] 11-01-2021 Episodic Other diseases of kidney and ureters (5 sources) Disorder of kidney and ureter, unspecified; Translations: [Nephritis and nephropathy, not specified as acute or chronic, with unspecified pathological lesion in kidney] Episodic Other diseases of kidney and ureters (10 sources) Chronic renal insufficiency; Translations: [Disorder of kidney and ureter, unspecified] 10-19-2023 Episodic Other fractures (20 sources) Fracture of multiple ribs ; Translations: [Multiple fractures of ribs, unspecified side, initial encounter for closed fracture] 11-07-2020 Episodic Other gastrointestinal disorders (10 sources) Diarrhea; Translations: [Diarrhea, unspecified] 10-19-2023 Episodic Other lower respiratory disease (13 sources) Cough; Translations: [Cough] 04-24-2023 Episodic Other lower respiratory disease (10 sources) Disorder of lung; Translations: [Other disorders of lung] 01-13-2024 Episodic Other lower respiratory disease (20 sources) Dyspnea on exertion; Translations: [Other forms of dyspnea] 05-19-2024 Episodic Other male genital disorders (6 sources) Male erectile dysfunction, unspecified; Translations: [Erectile dysfunction] 11-11-2024 Chronic Other non-traumatic joint disorders (17 sources) Pain in elbow; Translations: [Pain in left elbow] 02-15-2022 Episodic Other non-traumatic joint disorders (1 source) Pain in left elbow; Translations: [Pain in joint, upper arm] 02-15-2022 Episodic Other nutritional; endocrine; and metabolic disorders (20 sources) Hypercalcemia; Translations: [Hypercalcemia] 05-05-2019 Chronic Other screening for suspected conditions (not mental disorders or infectious disease) (11 sources) Abnormal findings on diagnostic imaging of other specified body structures; Translations: [Abnormal chest x-ray] Onset: 5 01-13-2024 Chronic Other screening for suspected conditions (not mental disorders or infectious disease) (20 sources) Thallium stress test abnormal; Translations: [Abnormal result of other cardiovascular function study] Onset: 1 05-09-2020 Episodic Other skin disorders (14 sources) Cyst of skin; Translations: [Follicular cyst of the skin and subcutaneous tissue, unspecified] 04-01-2023 Episodic Other skin disorders (4 sources) Follicular cyst of the skin and subcutaneous tissue, unspecified; Translations: [Sebaceous cyst] 04-01-2023 Episodic Other upper respiratory infections (20 sources) Chronic sinusitis, unspecified; Translations: [Unspecified sinusitis (chronic)] 03-01-2022 Chronic Other upper respiratory infections (20 sources) Acute sinusitis; Translations: [Acute sinusitis, unspecified] 11-07-2022 Episodic Peripheral and visceral atherosclerosis (20 sources) Renal artery stenosis; Translations: [Atherosclerosis of renal artery] Onset: 5 01-22-2022 Chronic Pneumonia (except that caused by tuberculosis or sexually transmitted disease) (14 sources) Pneumonia; Translations: [Pneumonia, unspecified organism] 05-01-2023 Episodic Residual codes; unclassified (20 sources) Bilateral lower limb edema; Translations: [Localized edema] 11-16-2020 Episodic Residual codes; unclassified (20 sources) History of vaccination; Translations: [Personal history of other drug therapy] 11-07-2020 Episodic Comment on above: 06/02/2020 Retinal detachments; defects; vascular occlusion; and retinopathy (1 source) Macular cyst, hole, or pseudohole, right eye; Translations: [Macular hole, right eye] Onset: 4 Chronic Thyroid disorders (20 sources) Hypothyroidism; Translations: [Hypothyroidism, unspecified] Onset: 4 08-18-2019 Chronic Past or Other Problems Problem Classification Problem Date Documented Date Episodic/Chronic Fluid and electrolyte disorders (20 sources) Hyperkalemia; Translations: [Hyperkalemia] Onset: 02-02-2024 Episodic Other aftercare (1 source) Encounter for therapeutic drug level monitoring; Translations: [Encounter for therapeutic drug level monitoring] Onset: 06-16-2024 Episodic Other diseases of veins and lymphatics (1 source) Venous insufficiency (chronic) (peripheral); Translations: [Venous insufficiency (chronic) (peripheral)] Onset: 01-09-2024 Episodic Other lower respiratory disease (2 sources) Other forms of dyspnea; Translations: [Other forms of dyspnea] Onset: 03-11-2024 Episodic Residual codes; unclassified (7 sources) Localized edema; Translations: [Edema] Onset: 01-09-2024 08-15-2022 Episodic Sprains and strains (14 sources) Strain of neck muscle; Translations: [Strain of muscle, fascia and tendon at neck level, initial encounter] Onset: 08-20-2024 08-20-2024 Episodic Results Test Name Value Interpretation Reference Range Facility Internal Medicine Office Vis itosonja 12-17-2024 Internal Medicine Office Visit [facility] Internal Medicine [address] [place] [address] [place] [address] OFFICE VISIT Date of Service: 12/17/24 MR#: [id number] Acct: [id number] Name: OLIVIER MENDOZA Rep #: [id number] : 1960 Provider: ANIL Dunn Age/Sex: 64/M Location[place] [facility] Status: Signed Intake Vital Signs 11/26/24 10:04 12/17/24 14:41 Height 5 ft 7 in 5 ft 7 in Weight: 166 lb BMI 25.9 BP 168/100 H Blood Pressure Location Lt brachial Position Sitting Respiration 16 Pulse 81 Pulse Source Monitor Temp 98.2 F Temp Source Temporal Pulse Oximetry (%) 93 Oxygen Delivery Method room air Intake Visit Reasons: Voicebox issues Chief Complaint: 6 M FU 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 Is patient in pain?: No Allergies latex Allergy (Unknown, Verified 12/17/24 14:34) Unknown Mayzzhe-VGN-AjU Reductase Inhibitor (Jhmnlib-Pol-Bjs Reductase Inhibitor) Adverse Reaction (Severe, Verified 12/17/24 14:34) muscle pain Medications ???Medication ???Instructions ???Recorded ???Confirmed ???Type insulin lispro 100 unit/mL See Rx Instructions subcut TID 04/2312/17/24 History subcutaneous pen (Humalog KwikPen e10.9 (U-100) Insulin) pen needle, diabetic 31 gauge x #100 ea 01/25/21 12/17/24 Rx 3/16 (BD Ultra-Fine Mini Pen Needle) handicap kathiard See Rx Instructions .Route 2 12/17/24 Rx .COMPLEX #1 unit compress.barbara caballero,reg,lrg #2 ea 01/09/24 12/17/24 Rx tadalafil 5 mg tablet 5 mg PO DAILY 03/11/24 12/17/24 Hi story blood-glucose sensor (FreeStyle 05/07/24 12/17/24 History Daron 2 Plus Sensor device) omeprazole 40 mg capsule,delayed 40 mg PO QDAY PRN gerd 05/19/24 History release furosemide 40 mg tablet (Lasix) 40 mg PO QAM 08/26/24 12/17/24 His tory insulin glargine 100 unit/mL (3 25 unit subcut QAM 08/26/24 History mL) subcutaneous pen (Basaglar KwikPen U-100 Insulin) amlodipine 10 mg tablet 10 mg PO QDAY #90 tabs 10/07/24 Rx fluticasone propionate 50 1 spray intranasal DAILY PRN nasal 10/19/24 12/17/24 Rx mcg/actuation nasal congestion #16 grams spray,suspension levothyroxine 150 mcg tablet 150 mcg PO DAILY #90 tabs 10/19/24 12/17/24 Rx benzonatate 200 mg capsule 200 mg PO TID PRN cough #30 caps 0 10/28/24 12/17/24 Rx cholecalciferol (vitamin D3) 50 2,000 unit PO DAILY #90 caps 11/1112/17/24 Rx mcg (2,000 unit) capsule clonidine 0.1 mg/24 hr weekly 1 patch transdermal QWEEK #4 ea 12/17/24 Rx transdermal patch losartan 100 mg tablet 100 mg PO DAILY #90 TABLETS 12/17/24 Rx sildenafil 25 mg tablet (Viagra) 25 mg PO QDAY PRN sexual activity 11/11/24 12/17/24 Rx #20 tabs evolocumab 140 mg/mL subcutaneous 140 mg subcut Q2W #2 mL 11/13/24 12/17/24 Rx pen injector (Andres Titus) carvedilol 6.25 mg tablet 6.25 mg PO BID #180 tabs 11/26/24 12/17/24 Rx amoxicillin 875 mg-potassium 1 tab PO BID #20 tabs 12/17/24 Rx clavulanate 125 mg tablet levocetirizine 5 mg tablet (Xyzal) 5 mg PO QDAY #30 tabs 12/17/24 1 Rx Have you fallen in the past year?: No Nurse's Note: Pt states that he was seen end of october for the same thing he was told it was allergies. Pt has tried hallz, throat spray. He has an intermitten dry cough, and drainage w/ voice cracking States nothing is working. pt has a sore throat in the morning. 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 Normal [facility] Duplex ultrasound of carotid artery reportOrdered By: Nicholas Teixeira on 12-02-2024 Study report [facility] [address] [place] [address] Carotid Duplex Ultrasound 12/01/24 0901 MR#: [id number] Acct: [id number] Name: OLIVIER MENDOZA Rep #:[id number] : 1960 63 From: Nicholas Chester Attending Dr: SHAUN Cardozo Sta tus: REG CLI Ordering Dr: Chacorta Porter NP Date: 12/01/24 Location: [facility] Sex: M C Admitted: Reason For Study Reason For Study: CAROTID DISEASE HX, DM Rt. Velocities/BP Lt. Velocities/BP Prox CCA 53.4/9.5 cm/sec. Prox CCA 67.7/11.7 cm/sec. Mid CCA 105.1/15.5 cm/sec. Mid CCA 99.7/15.7 cm/sec. Dist CCA 105.8/14.4 cm/sec. Dist CCA 82.0/13.8 cm/sec. Prox ICA 97.4/16.3 cm/sec. Prox ICA 138.1/13.9 cm/sec. Mid ICA 87.2/19.0 cm/sec. Mid ICA 85.5/19.2 cm/sec. Dist ICA 78.7/18.2 cm/sec. Dist ICA 71.9/10.8 cm/sec. Rt. ICA/CCA = 97.4/105.1=0.92. Lt. ICA/CCA = 138.1/99.7=1.4. Prox ECA 145.4/4.7 cm/sec. Prox ECA 195.9/9.3 cm/sec. Rt. Vert. 65.5/10.6 cm/sec. Lt. Vert. 41.6/8.5 cm/sec. Right Extracranial There is heterogeneous, irregular atherosclerotic plaque noted in the right common carotid artery. There is heterogeneous, irregular atherosclerotic plaque noted in the right internal carotid artery. The atherosclerotic plaque causes acoustic shadowing. There is heterogeneous, irregular atherosclerotic plaque noted in the right external carotid artery. Antegrade flow is noted in the right vertebral artery. Left Extracranial There is heterogeneous, irregular atherosclerotic plaque noted in the left common carotid artery. There is heterogeneous, irregular atherosclerotic plaque noted in the left internal carotid artery. The atherosclerotic plaque causes acoustic shadowing. There is heterogeneous, irregular atherosclerotic plaque noted in the left external carotid artery. Antegrade flow is noted in the left vertebral artery. VL/Carotid Duplex Ultrasound Interpretation Summary Mild (<50%) stenosis right extracranial internal carotid. Moderate (50-69%) stenosis left extracranial internal carotid. Patent and antegrade vertebrals bilaterally. __ Ordering Physician: Chacorta Porter Referring Physician: Sherice Avendano Performed By: Navjot MON RDCS, Rashida and Student 12/02/241717 Date _ Nicholas Teixeira MD CC: CAN TENDER-C Chacorta Porter; Dr. Sherice Avendano MD ~ Date Dictated: 12/01/24900 Date Transcribed: 12/02/241717 Aerospace Project Engineer: Signed [facility] Work Phone: Carotid Duplex Ultrasoundon 12-01-2024 Carotid Duplex Ultrasound [facility] [address] [place], [place] [address] [address] Carotid Duplex Ultrasound 12/01/24900 MR#: [id number] Acct: [id number] Name: OLIVIER MENDOZA Rep #: [id number] : 1960 63 From: Nicholas Teixeira MD Attending Dr: Chacorta Porter, CAN TENDER-C Status: REG CLI Ordering Dr: Chacorta Porter CAN TENDER CAN TENDER-C Date: 12/01/24 Location: [facility] Sex: M C Admitted: Reason For Study Reason For Study: CAROTID DISEASE HX, DM Rt. Velocities/BP Lt. Velocities/BP Prox CCA 53.4/9.5 cm/sec. Prox CCA 67.7/11.7 cm/sec. Mid CCA 105.1/15.5 cm/sec. Mid CCA 99.7/15.7 cm/sec. Dist CCA 105.8/14.4 cm/sec. Dist CCA 82.0/13.8 cm/sec. Prox ICA 97.4/16.3 cm/sec. Prox ICA 138.1/13.9 cm/sec. Mid ICA 87.2/19.0 cm/sec. Mid ICA 85.5/19.2 cm/sec. Dist ICA 78.7/18.2 cm/sec. Dist ICA 71.9/10.8 cm/sec. Rt. ICA/CCA = 97.4/105.1=0.92. Lt. ICA/CCA = 138.1/99.7=1.4. Prox ECA 145.4/4.7 cm/sec. Prox ECA 195.9/9.3 cm/sec. Rt. Vert. 65.5/10.6 cm/sec. Lt. Vert. 41.6/8.5 cm/sec. Right Extracranial There is heterogeneous, irregular atherosclerotic plaque noted in the right common carotid artery. There is heterogeneous, irregular atherosclerotic plaque noted in the right internal carotid artery. The atherosclerotic plaque causes acoustic shadowing. There is heterogeneous, irregular atherosclerotic plaque noted in the right external carotid artery. Antegrade flow is noted in the right vertebral artery. Left Extracranial There is heterogeneous, irregular atherosclerotic plaque noted in the left common carotid artery. There is heterogeneous, irregular atherosclerotic plaque noted in the left internal carotid artery. The atherosclerotic plaque causes acoustic shadowing. There is heterogeneous, irregular atherosclerotic plaque noted in the left external carotid artery. Antegrade flow is noted in the left vertebral artery. VL/Carotid Duplex Ultrasound Interpretation Summary Mild (<50%) stenosis right extracranial internal carotid. Moderate (50-69%) stenosis left extracranial internal carotid. Patent and antegrade vertebrals bilaterally. __ Ordering Physician: Chacorta Porter Referring Physician: Sherice Avendano Performed By: Navjot MON RDCS, Rashida and Student 12/02/241717 Date Nicholas Teixeira MD CC: SHAUN Porter; Dr. Sherice Avendano MD Date Dictated: 12/01/24900 Date Transcribed: 12/02/241717 Aerospace Project Engineer: Signed Normal [facility] Cardiology Visit Reporton Cardiology Visit Report [facility] [address] [place] [address] OFFICE VISIT Date of Service: 11/26/24 MR#: [id number] Acct: [id number] Name: OLIVIER MENDOZA Rep #: [id number] : 1960 Provider: SHAUN lau Age/Sex: 63/M Location[place] [facility] [place] Status: Signed HPI HPI History of Present Illness Details: This is a 63-year-old gentleman who presents here today for a cardiovascular follow-up visit. He has a history of hypertension, hyperlipidemia, carotid artery disease, obstructive sleep apnea, and diabetes. In February of 2020, he presented to the emergency room with chest pain with negative troponins. He had an abnormal EKG with changes concerning ischemia, and a stress test that was negative for ischemia. He underwent a cardiac catheterization 05/2020, which demonstrated diffuse coronary artery disease with small vessels noted in the entire coronary vasculature. He is established with Dr. Tilley. He denies chest, arm, jaw, or neck discomfort. He denies palpitations. He states bilateral lower extremity edema. He denies claudication. He states shortness of breath with activity such yard work (picking up logs) and shortness of breath at rest such as after activity that improves with rest. He denies orthopnea or PND. He denies chronic cough. He denies significant, sudden weight gain. He denies lightheadedness, dizziness, near-syncope, or syncope. He denies blood in urine, blood in stool, or epistaxis. He denies fever with chills. He denies myalgia. He denies fatigue. His exercise level has remained stable. 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 Accompanied by: Self Is patient in pain?: No Allergies latex Allergy (Unknown, Verified 11/26/24 09:58) Unknown Fsmsyoe-ZLG-XzZ Reductase Inhibitor (Dizzfrc-Cgs-Nlp Reductase Inhibitor) Adverse Reaction (Severe, Verified 11/26/24 09:58) muscle pain Medications ???Medication ???Instructions ???Recorded ???Confirmed ???Type insulin lispro 100 unit/mL See Rx Instructions subcut TID 04/2311/26/24 History subcutaneous pen (Humalog KwikPen e10.9 (U-100) Insulin) pen needle, diabetic 31 gauge x #100 ea 01/25/21 11/26/24 Rx 3/16 (BD Ultra-Fine Mini Pen Needle) handicap placard See Rx Instructions .Route 2 11/26/24 Rx .COMPLEX #1 unit compress.barbara caballero,reg,lrg #2 ea 01/09/24 11/26/24 Rx tadalafil 5 mg tablet 5 mg PO DAILY 03/11/24 11/26/24 Hi story blood-glucose sensor (FreeStyle 05/07/24 11/26/24 History Daron 2 Plus Sensor device) omeprazole 40 mg capsule,delayed 40 mg PO QDAY PRN gerd 05/19/24 History release furosemide 40 mg tablet (Lasix) 40 mg PO QAM 08/26/24 11/26/24 His tory insulin glargine 100 unit/mL (3 25 unit subcut QAM 08/26/24 History mL) subcutaneous pen (Basaglar KwikPen U-100 Insulin) amlodipine 10 mg tablet 10 mg PO QDAY #90 tabs 10/07/24 Rx fluticasone propionate 50 1 spray intranasal DAILY PRN nasal 10/19/24 11/26/24 Rx mcg/actuation nasal congestion #16 grams spray,suspension levothyroxine 150 mcg tablet 150 mcg PO DAILY #90 tabs 10/19/24 11/26/24 Rx benzonatate 200 mg capsule 200 mg PO TID PRN cough #30 caps 0 10/28/24 11/26/24 Rx cholecalciferol (vitamin D3) 50 2,000 unit PO DAILY #90 caps 11/1111/26/24 Rx mcg (2,000 unit) capsule clonidine 0.1 mg/24 hr weekly 1 patch transdermal QWEEK #4 ea 11/26/24 Rx transdermal patch losartan 100 mg tablet 100 mg PO DAILY #90 TABLETS 11/26/24 Rx sildenafil 25 mg tablet (Viagra) 25 mg PO QDAY PRN sexual activity 11/11/24 11/26/24 Rx #20 tabs evolocumab 140 mg/mL subcutaneous 140 mg subcut Q2W #2 mL 11/13/24 11/26/24 Rx pen injector (Repatha SureClick) carvedilol 6.25 mg tablet 6.25 mg PO BID #180 tabs 11/26/24 11/26/24 Rx Ejection fraction %: 65 Have you fallen in the past year?: No Nurse's Note: Requests refill on carvedilol 6.25 BID. Requests to talk about clonidine patch, Dr. Avendano recommended but insurance will not cover. [facility] Medical History Chronic sinusitis Erectile dysfunction Claudication of both lower extremities Hilar density Abnormal chest xray Preop cardiovascular exam CKD (chronic kidney disease), stage III GERD (gastr (more content not included)... Normal [facility] Internal Medicine Office Vis itosonja 11-11-2024 Internal Medicine Office Visit [facility] [place] [address] [place] [address] OFFICE VISIT Date of Service: 11/11/24 MR#: [id number] Acct: [id number] Name: OLIVIER MENDOZA Rep #: [id number] : 1960 Provider: Dr. Sherice rock MD Age/Sex: 63/M Location: [facility] Status: Signed Intake Vital Signs 05/07/24 13:35 10/28/24 09:40 Height 5 ft 7 in 5 ft 7 in Intake Visit Reasons: 6 M FU Chief Complaint: 6 M FU Is patient in pain?: No Allergies latex Allergy (Unknown, Verified 11/11/24 10:08) Unknown Abialre-SJM-AeM Reductase Inhibitor (Amcqodo-Vyg-Ebh Reductase Inhibitor) Adverse Reaction (Severe, Verified 11/11/24 10:08) muscle pain Medications ???Medication ???Instructions ???Recorded ???Confirmed ???Type insulin lispro 100 unit/mL See Rx Instructions subcut TID 04/2311/11/24 History subcutaneous pen (Humalog KwikPen e10.9 (U-100) Insulin) pen needle, diabetic 31 gauge x #100 ea 01/25/21 11/11/24 Rx 3/16 (BD Ultra-Fine Mini Pen Needle) handicap placard See Rx Instructions .Route 2 11/11/24 Rx .COMPLEX #1 unit compress.barbara caballero,reg,lrg #2 ea 01/09/24 11/11/24 Rx tadalafil 5 mg tablet 5 mg PO DAILY 03/11/24 11/11/24 Hi story blood-glucose sensor (FreeStyle 05/07/24 11/11/24 History Daron 2 Plus Sensor device) omeprazole 40 mg capsule,delayed 40 mg PO QDAY PRN gerd 05/19/24 History release evolocumab 140 mg/mL subcutaneous 140 mg subcut Q2W #2 mL 06/19/24 11/11/24 Rx pen injector (Andres Titus) furosemide 40 mg tablet (Lasix) 40 mg PO QAM 08/26/24 11/11/24 His tory insulin glargine 100 unit/mL (3 25 unit subcut QAM 08/26/24 History mL) subcutaneous pen (Basaglar KwikPen U-100 Insulin) carvedilol 6.25 mg tablet 6.25 mg PO BID #180 tabs 08/31/24 11/11/24 Rx amlodipine 10 mg tablet 10 mg PO QDAY #90 tabs 10/07/24 Rx fluticasone propionate 50 1 spray intranasal DAILY PRN nasal 10/19/24 11/11/24 Rx mcg/actuation nasal congestion #16 grams spray,suspension levothyroxine 150 mcg tablet 150 mcg PO DAILY #90 tabs 10/19/24 11/11/24 Rx benzonatate 200 mg capsule 200 mg PO TID PRN cough #30 caps 0 10/28/24 11/11/24 Rx cholecalciferol (vitamin D3) 50 2,000 unit PO DAILY #90 caps 11/1111/11/24 Rx mcg (2,000 unit) capsule clonidine 0.1 mg/24 hr weekly 1 patch transdermal QWEEK #4 ea 11/11/24 Rx transdermal patch losartan 100 mg tablet 100 mg PO DAILY #90 TABLETS 11/11/24 Rx sildenafil 25 mg tablet (Viagra) 25 mg PO QDAY PRN sexual activity 11/11/24 Rx #20 tabs Have you fallen in the past year?: No PFSH Medical History (Updated 11/11/24 @ 17:[address] 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 Diabetic foot ulcer associated with diabetes mellitus due to underlying condition Decubitus ulcer of foot, stage 2 Carotid artery stenosis Bradycardia Granuloma annulare Hypothyroidism BPH (benign prostatic hyperplasia) Abdominal pain Sleep apnea Hearing problem Back problem High calcium levels Type 1 diabetes mellitus Meniere's disease Acquired plantar keratoderma Essential hypertension Surgical History Hx of bilateral cataract extraction ( 06/2022) History of left heart catheterization (05/09/20) History of removal of cyst History of eye surgery Family History Mother Diabetes Myocardial infarction Heart disease High cholesterol Grandmother Parkinson disease Father Prostate cancer Grandfather COPD (chronic obstructive pulmonary disease) Social History Smoking Status: Former smoker Smokeless tobacco user: chewing tobacco how long ago did patient quit smokin years ago second hand exposure: No alcohol intake: current alcohol intake frequency: a few times a month substance use type: does not use caffeine: Yes Type: coffee Number of servings: 3 HPI HPI Chief Complaint: 6 M FU Details: OLIVIER MENDOZA, is a 63-year-old male presenting with a primary concern of hypertension management and follow-up o (more content not included)... Normal [facility] - Hematology and Cell countsOrdered By: Sherice Avendano on 11-11-2024 HbA1c (Bld) [Mass fraction] 8.4 % High 4.2-6.3 [facility] Internal Medicine Office Vis iton 10-28-2024 Internal Medicine Office Visit [facility] [address] [place] [address] [place] [address] OFFICE VISIT Date of Service: 10/28/24 MR#: [id number] Acct: [id number] Name: OLIVIER MENDOZA Rep #: [id number] : 1960 Provider: ANIL Dunn Age/Sex: 63/M Location[place] [facility] Status: Signed Intake Vital Signs 08/26/24 09:11 10/28/24 09:40 Height 5 ft 7 in 5 ft 7 in Weight: 165 lb 161 lb 6 oz BMI 25.8 25.2 BP 227/105 H 146/80 H Blood Pressure Location Lt brachial Lt brachial Position Sitting Sitting Respiration 16 16 Pulse 55 L 62 Pulse Source NIBP Monitor Temp 96.3 F L Temp Source Temporal Pulse Oximetry (%) 99 Oxygen Delivery Method room air Comment Automated cuff Intake Visit Reasons: Voicebox concerns Chief Complaint: voice box 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 Accompanied by: Self Is patient in pain?: No Allergies latex Allergy (Unknown, Verified 10/28/24 09:34) Unknown Dmotkqy-TKA-RqY Reductase Inhibitor (Ngdfnms-Uri-Rfe Reductase Inhibitor) Adverse Reaction (Severe, Verified 10/28/24 09:34) muscle pain Medications ???Medication ???Instructions ???Recorded ???Confirmed ???Type insulin lispro 100 unit/mL See Rx Instructions subcut TID 04/2310/28/24 History subcutaneous pen (Humalog KwikPen e10.9 (U-100) Insulin) pen needle, diabetic 31 gauge x #100 ea 01/25/21 10/28/24 Rx 3/16 (BD Ultra-Fine Mini Pen Needle) handicap placard See Rx Instructions .Route 2 10/28/24 Rx .COMPLEX #1 unit compress.barbara caballero,reg,lrg #2 ea 01/09/24 10/28/24 Rx tadalafil 5 mg tablet 5 mg PO DAILY 03/11/24 10/28/24 Hi story blood-glucose sensor (FreeStyle 05/07/24 10/28/24 History Daron 2 Plus Sensor device) cholecalciferol (vitamin D3) 50 4,000 unit PO DAILY 05/19/2410/28 History mcg (2,000 unit) capsule omeprazole 40 mg capsule,delayed 40 mg PO QDAY PRN gerd 05/19/24 History release losartan 100 mg tablet 100 mg PO DAILY #90 TABLETS 10/28/24 Rx evolocumab 140 mg/mL subcutaneous 140 mg subcut Q2W #2 mL 06/19/24 10/28/24 Rx pen injector (Andres Titus) furosemide 40 mg tablet (Lasix) 40 mg PO QAM 08/26/24 10/28/24 His tory insulin glargine 100 unit/mL (3 25 unit subcut QAM 08/26/24 History mL) subcutaneous pen (Basaglar KwikPen U-100 Insulin) carvedilol 6.25 mg tablet 6.25 mg PO BID #180 tabs 08/31/24 10/28/24 Rx clonidine HCl 0.1 mg tablet 0.1 mg PO BID #180 tabs 08/31/24 0 10/28/24 Rx amlodipine 10 mg tablet 10 mg PO QDAY #90 tabs 10/07/24 Rx fluticasone propionate 50 1 spray intranasal DAILY PRN nasal 10/19/24 10/28/24 Rx mcg/actuation nasal congestion #16 grams spray,suspension levothyroxine 150 mcg tablet 150 mcg PO DAILY #90 tabs 10/19/24 10/28/24 Rx benzonatate 200 mg capsule 200 mg PO TID PRN cough #30 caps 0 10/28/24 10/28/24 Rx Have you fallen in the past year?: No Nurse's Note: scratchy in voice box and dry cough PFSH Medical History Claudication of both lower extremities Hilar density Abnormal chest xray Preop cardiovascular exam CKD (chronic kidney disease), stage III GERD (gastroesophageal reflux disease) Chest congestion Preoperative evaluation to rule out surgical contraindication Sinusitis Skin cyst Fatigue Left elbow pain Health care maintenance Proteinuria Nephropathy Bilateral lower extremity edema COVID-19 vaccine series completed Atherosclerotic heart disease of lumbee coronary artery without angina pectoris Mixed hyperlipidemia 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 Diabetic foot ulcer associated with diabetes mellitus due to underlying condition Decubitus ulcer of foot, stage 2 Carotid artery stenosis Bradycardia Granuloma annulare Hypothyroidism BPH (benign prostatic hyperplasia) Abdominal pain Sleep apnea Hearing problem Back problem High calcium levels Type 1 diabetes mellitus Meniere's disease Acquired plantar keratoderma Essential hypertension Surgical History Hx of bilateral cataract extraction ( 06/2022) History of left heart catheterization (05/09/20) History of removal of cyst History of eye surgery Family History Mother Diabetes Myocardial infarction Heart disease High cholesterol Grandmother Parkinson disease Father Prostate cancer Grandfather COPD (chronic obstructive pulmonary disease) Social History Smoking Status: Former smoker Smokeless tobacco user: chewing tobacco how long ago did patient quit smokin years ago second hand exposure: No alcohol intake: current alcohol intake frequency: a (more content not included)... Normal [facility] Microalb:Creat Ratio,Random URon 09-28-2024 MALB:CREAT 2946.7 mg/g CRE High <30 mg/g CRE [facility] Comment on above: Result Comment: AMENDED REPORT 09/28/242128 MALB:CREAT previously reported as: 36287.5 mg/g CRE Performed By: #### L 100.0100, L501.4021, L500.2500 #### [facility] [address] [place], [address] Cardiology Visit Reporton Cardiology Visit Report [facility] [address] [place] [address] OFFICE VISIT Date of Service: 08/26/24 MR#: [id number] Acct: [id number] Name: OLIVIER MENDOZA Rep #: [id number] : 1960 Provider: SHAUN lau Age/Sex: 63/M Location: [facility] Status: Signed HPI HPI History of Present Illness Details: This is a 63-year-old gentleman who presents here today for a cardiovascular follow-up visit. He has a history of hypertension, hyperlipidemia, carotid artery disease, obstructive sleep apnea, and diabetes. In February of 2020, he presented to the emergency room with chest pain with negative troponins. He had an abnormal EKG with changes concerning ischemia, and a stress test that was negative for ischemia. He underwent a cardiac catheterization 05/2020, which demonstrated diffuse coronary artery disease with small vessels noted in the entire coronary vasculature. He is established with Dr. Tilley. He denies chest, arm, jaw, or neck discomfort. He denies palpitations. He states bilateral lower extremity edema. He denies claudication. He states shortness of breath with activity such yard work (picking up logs) and shortness of breath at rest such as after activity that improves with rest. He denies orthopnea or PND. He denies chronic cough. He denies significant, sudden weight gain. He denies lightheadedness, dizziness, near-syncope, or syncope. He denies blood in urine, blood in stool, or epistaxis. He denies fever with chills. He denies myalgia. He denies fatigue. His exercise level has remained stable. Intake Vital Signs 08/04/24 13:41 08/20/24 11:06 08/26/24 09:11 08/26/24 09:35 08/26/24 09:35 Height 5 ft 7 in 5 ft 7 in 5 ft 7 in Weight: 165 lb BMI 25.8 BP 227/105 H 206/82 H 224/103 H Blood Pressure Location Lt brachial Lt brachial Rt brachial Position Sitting Sitting Sitting Respiration 16 Pulse 55 L 56 L 56 L Pulse Source NIBP NIBP NIBP Pulse Oximetry (%) 97 Oxygen Delivery Method room air Comment Automated cuff Manual cuff Automated cuff Intake Visit Reasons: S/P ER, severe hypertension L.L. 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 Is patient in pain?: No Allergies latex Allergy (Unknown, Verified 08/26/24 09:18) Unknown Cslbjdk-CVX-DkF Reductase Inhibitor (Jlszlpa-Lzv-Huv Reductase Inhibitor) Adverse Reaction (Severe, Verified 08/26/24 09:18) muscle pain Medications ???Medication ???Instructions ???Recorded ???Confirmed ???Type insulin lispro 100 unit/mL See Rx Instructions subcut TID 04/2308/26/24 History subcutaneous pen (Humalog KwikPen e10.9 (U-100) Insulin) pen needle, diabetic 31 gauge x #100 ea 01/25/21 08/20/24 Rx 3/16 (BD Ultra-Fine Mini Pen Needle) handicap placard See Rx Instructions .Route 2 08/26/24 Rx .COMPLEX #1 unit fluticasone propionate 50 1 spray intranasal DAILY PRN nasal 12/20/23 08/26/24 Rx mcg/actuation nasal congestion #16 grams spray,suspension compress.barbara caballero,reg,lrg #2 ea 01/09/24 08/20/24 Rx tadalafil 5 mg tablet 5 mg PO DAILY 03/11/24 08/26/24 Hi story levothyroxine 150 mcg tablet 150 mcg PO DAILY #90 tabs 04/23/24 08/26/24 Rx blood-glucose sensor (FreeStyle 05/07/24 08/20/24 History Daron 2 Plus Sensor device) cholecalciferol (vitamin D3) 50 4,000 unit PO DAILY 05/19/2408/26 History mcg (2,000 unit) capsule omeprazole 40 mg capsule,delayed 40 mg PO QDAY PRN gerd 05/19/24 History release losartan 100 mg tablet 100 mg PO DAILY #90 TABLETS 08/26/24 Rx evolocumab 140 mg/mL subcutaneous 140 mg subcut Q2W #2 mL 06/19/24 08/26/24 Rx pen injector (Andres Titus) clonidine HCl 0.1 mg tablet 0.1 mg PO BID 30 days #60 tabs 05/2608/26/24 Rx carvedilol 12.5 mg tablet 6.25 mg (1/2 x 12.5 mg) PO BID #0 08/14/24 08/26/24 Rx tabs cyclobenzaprine 10 mg tablet 10 mg PO TID PRN muscle spasm #90 08/20/24 08/26/24 Rx tabs amlodipine 5 mg tablet 10 mg PO DAILY 08/26/24 08/26/24 H istory furosemide 40 mg tablet (Lasix) 40 mg PO QAM 08/26/24 08/26/24 His tory insulin glargine 100 unit/mL (3 25 unit subcut QAM 08/26/24 History mL) subcutaneous pen (Basaglar KwikPen U-100 Insulin) Ejection fraction %: 65 Have you fallen in the past year?: No PFSH Medical History Claudication of both lower extremities Hilar density Abnormal chest xray Preop cardiovascular exam CKD (chronic kidney disease), stage III GERD (gastroesophageal reflux disease) Chest congestion Preoperative evaluation to rule out surgical contraindication Sinusitis Skin cyst Fatigue Left elbow pain Health care maintenance Proteinuria Nephropathy Bilateral lower extremity edema COVID-19 vaccin (more content not included)... Normal [facility] Internal Medicine Office Vis iton 08-20-2024 Internal Medicine Office Visit [facility] [address] [place] [address] [place] [address] OFFICE VISIT Date of Service: 08/20/24 MR#: [id number] Acct: [id number] Name: OLIVIER MENDOZA Rep #: [id number] : 1960 Provider: SHAUN abernathy Age/Sex: 63/M Location: [facility] Status: Signed Intake Vital Signs 08/04/24 13:41 08/20/24 11:06 Height 5 ft 7 in 5 ft 7 in Weight: 169 lb BMI 26.4 BP 188/100 H Blood Pressure Location Lt brachial Position Sitting Respiration 18 Pulse 65 Pulse Source Monitor Temp 97.7 F L Temp Source Temporal Pulse Oximetry (%) 98 Oxygen Delivery Method room air Intake Visit Reasons: PINCHED NERVE IN BACK Chief Complaint: PINCHED NERVE IN BACK Is patient in pain?: Yes (10 right shoulder and neck since Saturday ) Allergies latex Allergy (Unknown, Verified 08/20/24 11:07) Unknown Judcwrq-TQX-KuM Reductase Inhibitor (Kpbfdtu-Jfj-Rpg Reductase Inhibitor) Adverse Reaction (Severe, Verified 08/20/24 11:07) muscle pain Medications ???Medication ???Instructions ???Recorded ???Confirmed ???Type insulin lispro 100 unit/mL See Rx Instructions subcut TID 04/2308/20/24 History subcutaneous pen (Humalog KwikPen e10.9 (U-100) Insulin) pen needle, diabetic 31 gauge x #100 ea 01/25/21 08/20/24 Rx 3/16 (BD Ultra-Fine Mini Pen Needle) handicap placard See Rx Instructions .Route 2 08/20/24 Rx .COMPLEX #1 unit insulin glargine 100 unit/mL (3 25 unit subcut DAILY e10.9 2 08/20/24 History mL) subcutaneous pen (Lantus Solostar U-100 Insulin) amlodipine 5 mg tablet 5 mg PO DAILY #90 tabs 11/13/23 Rx fluticasone propionate 50 1 spray intranasal DAILY PRN nasal 12/20/23 08/20/24 Rx mcg/actuation nasal congestion #16 grams spray,suspension compress.barbara caballero neeros,reg,lrg #2 ea 01/09/24 08/20/24 Rx tadalafil 5 mg tablet 5 mg PO DAILY 03/11/24 08/20/24 Hi story levothyroxine 150 mcg tablet 150 mcg PO DAILY #90 tabs 04/23/24 08/20/24 Rx blood-glucose sensor (FreeStyle 05/07/24 08/20/24 History Daron 2 Plus Sensor device) cholecalciferol (vitamin D3) 50 4,000 unit PO DAILY 05/19/2408/20 History mcg (2,000 unit) capsule omeprazole 40 mg capsule,delayed 40 mg PO QDAY PRN gerd 05/19/24 History release losartan 100 mg tablet 100 mg PO DAILY #90 TABLETS 08/20/24 Rx evolocumab 140 mg/mL subcutaneous 140 mg subcut Q2W #2 mL 06/19/24 08/20/24 Rx pen injector (Andres Titus) clonidine HCl 0.1 mg tablet 0.1 mg PO BID 30 days #60 tabs 05/2608/20/24 Rx carvedilol 12.5 mg tablet 6.25 mg (1/2 x 12.5 mg) PO BID #0 08/14/24 08/20/24 Rx tabs hydrochlorothiazide 25 mg tablet 25 mg PO QDAY #90 tabs 08/17/24 Rx cyclobenzaprine 10 mg tablet 10 mg PO TID PRN muscle spasm #90 08/20/24 08/20/24 Rx tabs Have you fallen in the past year?: No Nurse's Note: pt reports that he has had a pinched nerve in his neck since Saturday states that he feels he may have slept on his neck wrong and now it is aggravated pt's blood pressure is elevated today 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 is 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 to get BP lowered pt denies any chest pain or shortness of breath at this time 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 tried to take IBU for the neck pain however it sent his blood pressure through the roof so now he no longer uses this [facility] Medical History Claudication of both lower extremities Hilar density Abnormal chest xray Preop cardiovascular exam CKD (chronic kidney disease), stage III GERD (gastroesophageal reflux disease) Chest congestion Preoperative evaluation to rule out surgical contraindication Sinusitis Skin cyst Fatigue Left elbow pain Health care maintenance Proteinuria Nephropathy Bilateral lower extremity edema COVID-19 vaccine series completed Atherosclerotic heart disease of lumbee coronary artery without angina pectoris Mixed hyperlipidemia 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 Diabetic foot ulcer associated with diabetes mellitus due to underlying condition Decubitus ulcer of foot, stage 2 Carotid artery stenosis Bradycardia Granuloma annulare Hypothyroidism BPH (benign prostatic hyperplasia) Abdominal pain Sleep apnea Hearing problem Back problem High calcium levels Type 1 diabetes mellitus Meniere's disease Acquired plantar keratoderma Essential hypertension Surgical History Hx of bilateral cataract extraction ( 06/2022) History of left heart catheterization (05/09/20) History of removal of cyst History of eye surgery Family History Mother Diabetes Myocardial infarction Heart dis (more content not included)... Normal [facility] Absolute lymphocyte countOrd ered By: Denzel Carlin on 08-04-2024 Lymphocytes Auto (Unsp spec) [#/Vol] 1.01 10*3/uL 0.83-4.51 [facility] Absolute neutrophil countOrd ered By: Denzel Carlin on 08-04-2024 Neutrophils (Bld) [#/Vol] 5.4 10*3/uL 2.0-7.7 [facility] Anion gap in Serum or Plasma Ordered By: Denzel Carlin on 08-04-2024 Anion gap [Moles/Vol] 10 mmol/L - [facility] Automated lymphocyte count a s percentage of total leukocytesOrdered By: Denzel Carlin on 08-04-2024 Lymphocytes/100 WBC Auto (Unsp spec) 13.9 % Low - [facility] BUN/creatinine ratioOrdered By: Denzel Carlin on 08-04-2024 Urea nitrogen/Creatinine [Mass ratio] 16.7 mg/mg - [facility] Basic Metabolic Profile (BMP )on 08-04-2024 BUN/CRE 16.7 RATIO Normal - [facility] Comment on above: Performed By: #### L 100.0100, L501.4021, L500.2500 #### [facility] [address] [place], [address] Calcium [Mass/Vol] 9.3 mg/dL Normal 7.6-11.0 [facility] Comment on above: Performed By: #### L 100.0100, L501.4021, L500.2500 #### [facility] [address] [place], [address] Chloride [Moles/Vol] 102 mmol/L Normal 98-108 [facility] Comment on above: Performed By: #### L 100.0100, L501.4021, L500.2500 #### [facility] [address] [place], [address] CO2 [Moles/Vol] 24.7 mmol/L Normal 21.0-32.0 [facility] Comment on above: Performed By: #### L 100.0100, L501.4021, L500.2500 #### [facility] [address] [place], [address] Creatinine [Mass/Vol] 2.20 mg/dL High 0.70-1.20 [facility] Comment on above: Performed By: #### L 100.0100, L501.4021, L500.2500 #### [facility] [address] [place], [address] ECRCL 31.30 ml/min Low 50-250 [facility] Comment on above: Performed By: #### L 100.0100, L501.4021, L500.2500 #### [facility] [address] [place], [address] GAP 10 Normal 5-15 [facility] Comment on above: Performed By: #### L 100.0100, L501.4021, L500.2500 #### [facility] [address] [place], [address] GFR/1.73 sq M.predicted among non-blacks MDRD (S/P/Bld) [Vol rate/Area] 32 mL/min/{1.73_m2} Low >60 [facility] Comment on above: Result Comment: mL/m in/1.73m2 CKD-EPI Creatinine Equation (2020) Performed By: #### L 100.0100, L501.4021, L500.2500 #### [facility] [address] [place], [address] Glucose [Mass/Vol] 130 mg/dL High 70-99 [facility] Comment on above: Performed By: #### L 100.0100, L501.4021, L500.2500 #### [facility] [address] [place], [address] Potassium [Moles/Vol] 5.3 mmol/L High 3.3-5.1 [facility] Comment on above: Performed By: #### L 100.0100, L501.4021, L500.2500 #### [facility] [address] [place], [address] Sodium [Moles/Vol] 136 mmol/L Normal 133-145 [facility] Comment on above: Performed By: #### L 100.0100, L501.4021, L500.2500 #### [facility] [address] [place], [address] Urea nitrogen [Mass/Vol] 37 mg/dL High 4-19 [facility] Comment on above: Performed By: #### L 100.0100, L501.4021, L500.2500 #### [facility] [address] [place], [address] Basophil percentageOrdered B y: Denzel Carlin on 08-04-2024 Basophils/100 WBC (Bld) 0.4 % 0-1 [facility] CBC W/Diff, Automatedon 06-0 Absolute Lymph 1.01 X10 3/uL Normal 0.83-4.51 [facility] Comment on above: Performed By: #### L 100.0100, L501.4021, L500.2500 #### [facility] [address] [place], [address] Absolute Neut 5.4 X10 3/uL Normal 2.0-7.7 [facility] Comment on above: Performed By: #### L 100.0100, L501.4021, L500.2500 #### [facility] [address] [place], [address] Basophils/100 WBC (Bld) 0.4 % Normal 0-1 [facility] Comment on above: Performed By: #### L 100.0100, L501.4021, L500.2500 #### [facility] [address] [place], [address] Eosinophils/100 WBC (Bld) 3.7 % Normal 0-5 [facility] Comment on above: Performed By: #### L 100.0100, L501.4021, L500.2500 #### [facility] [address] [place], [address] Erythrocyte distribution width (RBC) [Ratio] 14.4 % Normal 11.6-14.6 [facility] Comment on above: Performed By: #### L 100.0100, L501.4021, L500.2500 #### [facility] [address] [place], [address] Hematocrit (Bld) [Volume fraction] 35.2 % Low 40-54 [facility] Comment on above: Performed By: #### L 100.0100, L501.4021, L500.2500 #### [facility] [address] [place], [address] Hemoglobin (Bld) [Mass/Vol] 11.6 g/dL Low 13.0-16.5 [facility] Comment on above: Performed By: #### L 100.0100, L501.4021, L500.2500 #### [facility] [address] [place], [address] IG% 0.300 Normal 0.0-0.9 [facility] Comment on above: Result Comment: IG% - Immature Granulocytes (promyelocytes, myelocytes and metamyelocytes) > 1% indicates that a LEFT SHIFT is Present. Performed By: #### L 100.0100, L501.4021, L500.2500 #### [facility] [address] [place], [address] Lymphocytes/100 WBC (Bld) 13.9 % Low 19-41 [facility] Comment on above: Performed By: #### L 100.0100, L501.4021, L500.2500 #### [facility] [address] [place], [address] MCH (RBC) [Entitic mass] 29.0 pg Normal 27.0-32.0 [facility] Comment on above: Performed By: #### L 100.0100, L501.4021, L500.2500 #### [facility] [address] [place], [address] MCHC (RBC) [Mass/Vol] 33.0 g/dL Normal 32-36 [facility] Comment on above: Performed By: #### L 100.0100, L501.4021, L500.2500 #### [facility] [address] [place], [address] MCV (RBC) [Entitic vol] 88.0 fL Normal 80-94 [facility] Comment on above: Performed By: #### L 100.0100, L501.4021, L500.2500 #### [facility] [address] [place], [address] Monocytes/100 WBC (Bld) 7.4 % Normal 0-10 [facility] Comment on above: Performed By: #### L 100.0100, L501.4021, L500.2500 #### [facility] [address] [place], [address] Neutrophils/100 WBC (Bld) 74.3 % High 47-70 [facility] Comment on above: Performed By: #### L 100.0100, L501.4021, L500.2500 #### [facility] [address] [place], [address] Nucleated RBC (Bld) [#/Vol] 0 10*3/uL Normal 0-5 [facility] Comment on above: Performed By: #### L 100.0100, L501.4021, L500.2500 #### [facility] [address] [place], [address] Platelet mean volume (Bld) [Entitic vol] 8.7 fL Normal 6.2-12.0 [facility] Comment on above: Performed By: #### L 100.0100, L501.4021, L500.2500 #### [facility] [address] [place], [address] Platelets (Bld) [#/Vol] 404 10*3/uL Normal 150-450 [facility] Comment on above: Performed By: #### L 100.0100, L501.4021, L500.2500 #### [facility] [address] [place], [address] RBC (Bld) [#/Vol] 4.00 10*6/uL Low 4.6-6.2 [facility] Comment on above: Performed By: #### L 100.0100, L501.4021, L500.2500 #### [facility] [address] [place], [address] RDW SD 46.0 fl High 35.1-43.9 [facility] Comment on above: Performed By: #### L 100.0100, L501.4021, L500.2500 #### [facility] [address] [place], [address] WBC (Bld) [#/Vol] 7.3 10*3/uL Normal 4.4-11.0 [facility] Comment on above: Performed By: #### L 100.0100, L501.4021, L500.2500 #### [facility] [address] [facility] [place], [address] Carbon dioxide, total [Moles /volume] in Central venous bloodOrdered By: Denzel Carlin on 08-04-2024 CO2 [Moles/Vol] 24.7 mmol/L 21.0-32.0 [facility] Chest PA and Lateralon 08-04 Chest PA and Lateral [facility] Imaging Services [address] [place] [address] Chest PA and Lateral MR#: [id number] Acct: [id number] Name: OLIVIER MENDOZA Rep #: [id number] : 1960 M 63 From: Avi Mckinley MD PCP: Dr. Sherice Avendano MD Status: REG ER Study: Chest PA and Lateral Date of Exam: 08/04/24 Exam# [id number] Ordering Dr: Denzel Carlin DO PROCEDURE: CHEST PA AND LATERAL 08/04/2024 REASON FOR EXAM: HTN TECHNIQUE: Frontal and lateral views of the chest. COMPARISON: Two-view chest, 01/09/2020. FINDINGS: There is chronic bronchial wall thickening extending from both oliver. There is no lobar consolidation or pleural effusion. The heart size is upper limits of normal. There is calcific vascular disease of the thoracic aorta. The upper abdominal bowel gas pattern is normal. There are no bony abnormalities. RAD/Chest PA and Lateral IMPRESSION: Chronic interstitial lung disease. Borderline cardiomegaly. No significant change. Reading Location: [id number] CC: Dr. Sherice Avendano MD; Dr. 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 Sherice Avendano MD Status:REG ER Location: ED HPI History of Present Illness Chief Complaint: Hypertension Narrative Narrative: Patient is a 63-year-old male with a past medical history of CKD stage III, GERD, hypothyroidism, [place], type 1 diabetes, M???ni???re's disease who presented to the emergency department with a chief complaint of high blood pressure. Patient states that recently his doctor has been change his blood pressure medications and ever since then his blood pressure is running extremely high. He notes that he was at the dentist and noted that his blood pressure was elevated therefore they sent him here to be evaluated. Patient remains asymptomatic has no complaints at this point time he states that he feels well overall. States that the cardiology team is working on his blood pressure management. he states that recently he had a stress test and an entire workup [facility] Medical History Claudication of both lower extremities Hilar density Abnormal chest xray Preop cardiovascular exam CKD (chronic kidney disease), stage III GERD (gastroesophageal reflux disease) Chest congestion Preoperative evaluation to rule out surgical contraindication Sinusitis Skin cyst Fatigue Left elbow pain Health care maintenance Proteinuria Nephropathy Bilateral lower extremity edema COVID-19 vaccine series completed Atherosclerotic heart disease of lumbee coronary artery without angina pectoris Mixed hyperlipidemia 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 Diabetic foot ulcer associated with diabetes mellitus due to underlying condition Decubitus ulcer of foot, stage 2 Carotid artery stenosis Bradycardia Granuloma annulare Hypothyroidism BPH (benign prostatic hyperplasia) Abdominal pain Sleep apnea Hearing problem Back problem High calcium levels Type 1 diabetes mellitus Meniere's disease Acquired plantar keratoderma Essential hypertension Home Medications ???Medication ???Instructions ???Recorded ???Last Taken ???Type insulin lispro 100 unit/mL See Rx Instructions subcut TID 04/2308/04/24 History subcutaneous pen (Humalog KwikPen e10.9 (U-100) Insulin) pen needle, diabetic 31 gauge x #100 ea 01/25/21 Unknown Rx 3/16 (BD Ultra-Fine Mini Pen Needle) handicap placard See Rx Instructions .Route 2 Unknown Rx .COMPLEX #1 unit insulin glargine 100 unit/mL (3 25 unit subcut DAILY e10.9 2 08/04/24 History mL) subcutaneous pen (Lantus Solostar U-100 Insulin) amlodipine 5 mg tablet 5 mg PO DAILY #90 tabs 11/13/23 Rx fluticasone propionate 50 1 spray intranasal DAILY PRN nasal 12/20/23 Unknown Rx mcg/actuation nasal congestion #16 grams spray,suspension compress.barbara caballero nee,reg,lrg #2 ea 01/09/24 Unknown Rx tadalafil 5 mg tablet 5 mg PO DAILY 03/11/24 08/03/24 Hi story levothyroxine 150 mcg tablet 150 mcg PO DAILY #90 tabs 04/23/24 08/04/24 Rx blood-glucose sensor (FreeStyle 05/07/24 Unknown History Daron 2 Plus Sensor device) cholecalciferol (vitamin D3) 50 4,000 unit PO DAILY 05/19/2408/04 History mcg (2,000 unit) capsule omeprazole 40 mg capsule,delayed 40 mg PO QDAY PRN gerd 05/19/24 Un known History release carvedilol 12.5 mg tablet 12.5 mg PO BID #180 tabs 05/26/24 08/04/24 Rx furosemide 40 mg tablet 40 mg PO QAM #90 tabs 05/26/2405/26 Rx losartan 100 mg tablet 100 mg PO DAILY #90 TABLETS 08/03/24 Rx evolocumab 140 mg/mL subcutaneous 140 mg subcut Q2W #2 mL 06/19/24 07/06/24 Rx pen injector (Andres Titus) clonidine HCl 0.1 mg tablet 0.1 mg PO BID 30 days #60 tabs 05/26 Unknown Rx Allergy/AdvReac Type Severity Reaction Status Date / Time latex Allergy Unknown Unknown Verified 08/04/24 13:41 Rudeyfo-RQT-RgV Reductase AdvReac Severe muscle pain Verified 08/04/24 13:41 Inhibitor (Uynoiwm-Vfi-Yeg Reductase Inhibitor) Family History Mother Diabetes Myocardial infarction Heart disease High cholesterol Grandmother Parkinson disease Father Prostate cancer Grandfather COPD (chronic obstructive pulmonary disease) Surgical History Hx of bilateral cataract extraction ( 06/2022) History of left heart catheterization (05/09/20) History of removal of cyst History of eye surgery Social History Smoking Status: Former smoker Smo (more content not included)... Normal [facility] Eosinophil percentageOrdered By: Denzel Carlin on 08-04-2024 Eosinophils/100 WBC (Bld) 3.7 % 0-5 [facility] Erythrocyte distribution wid th ratioOrdered By: Denzel Carlin on 08-04-2024 Erythrocyte distribution width (RBC) [Ratio] 14.4 % 11.6-14.6 [facility] Erythrocyte distribution wid th standard deviationOrdered By: Denzel Carlin on 08-04-2024 Erythrocyte distribution width (RBC) [Ratio] 46.0 fl High 35.1-43.9 [facility] Glomerular filtration rate ( GFR) estimation/1.73 sq m using serum, plasma, or whole bOrdered By: Denzel Carlin on 08-04-2024 GFR/1.73 sq M.predicted among non-blacks MDRD (S/P/Bld) [Vol rate/Area] 32 mL/min/{1.73_m2} Low >60 [facility] Comment on above: mL/min/1.73m2 CKD-EP I Creatinine Equation (2020) Hematocrit Auto (Bld) [Volum e fraction]Ordered By: Denzel Carlin on 08-04-2024 Hematocrit (Bld) [Volume fraction] 35.2 % Low 40-54 [facility] Hemoglobin measurementOrdere d By: Denzel Carlin on 08-04-2024 Hemoglobin (Bld) [Mass/Vol] 11.6 g/dL Low 13.0-16.5 [facility] Immature granulocytes/100 WB C Auto (Bld)Ordered By: Denzel Carlin on 08-04-2024 Immature granulocytes/100 WBC (Bld) 0.300 % 0.0-0.9 [facility] Comment on above: IG% - Immature Granu locytes (promyelocytes, myelocytes and metamyelocytes) > 1% indicates that a LEFT SHIFT is Present. L499.0042on 08-04-2024 Trop T High Sen 32 ng/L High <=22 [facility] Comment on above: Performed By: #### L 499.0042 #### [facility] [address] [place], [address] L499.0043on 08-04-2024 Trop T High Sen Normal <=22 [facility] Comment on above: Result Comment: Canc elled via OM: MD Ordered Performed By: #### L 100.0100, L501.4021, L500.2500 #### [facility] [address] [place], [address] L501.4021on 08-04-2024 Trop T High Sen 35 ng/L High <=22 [facility] Comment on above: Performed By: #### L 100.0100, L501.4021, L500.2500 #### [facility] [address] [place], [address] MCV (mean corpuscular volume ) determinationOrdered By: Denzel Carlin on 08-04-2024 MCV (RBC) [Entitic vol] 88.0 fL 80-94 [facility] Mean corpuscular hemoglobin (MCH) determinationOrdered By: Denzel Carlin on 08-04-2024 MCH (RBC) [Entitic mass] 29.0 pg 27.0-32.0 [facility] Mean corpuscular hemoglobin concentration (MCHC) determinationOrdered By: Denzel Carlin on 08-04-2024 MCHC (RBC) [Mass/Vol] 33.0 g/dL 32-36 [facility] Mean platelet volume determi nationOrdered By: Denzel Carlin on 08-04-2024 Platelet mean volume (Bld) [Entitic vol] 8.7 fL 6.2-12.0 [facility] Monocyte percentageOrdered B y: Denzel Carlin on 08-04-2024 Monocytes/100 WBC (Bld) 7.4 % 0-10 [facility] Neutrophil percentageOrdered By: Denzel Carlin on 08-04-2024 Neutrophils/100 WBC (Bld) 74.3 % High 47-70 [facility] Nucleated red blood cell per centageOrdered By: Denzel Carlin on 08-04-2024 Nucleated RBC/100 WBC (Bld) [Ratio] 0 % 0-5 [facility] Platelet countOrdered By: Kareem Carlin on 08-04-2024 Platelets (Bld) [#/Vol] 404 10*3/uL 150-450 [facility] Potassium measurement (mass/ volume)Ordered By: Denzel Carlin on 08-04-2024 Potassium (Unsp spec) [Mass/Vol] 5.3 mmol/L High 3.3-5.1 [facility] RBC Auto (Bld) [#/Vol]Ordere d By: Denzel Carlin on 08-04-2024 RBC (Bld) [#/Vol] 4.00 10*6/uL Low 4.6-6.2 [facility] Serum creatinine measurement (mass/volume)Ordered By: Denzel Carlin on 08-04-2024 Creatinine [Mass/Vol] 2.20 mg/dL High 0.70-1.20 [facility] Serum glucose measurement (m ass/volume)Ordered By: Denzel Carlin on 08-04-2024 Glucose [Mass/Vol] 130 mg/dL High 70-99 [facility] Serum or plasma calcium tiera urement (mass/volume)Ordered By: Denzel Carlin on 08-04-2024 Calcium [Mass/Vol] 9.3 mg/dL 7.6-11.0 [facility] Serum or plasma urea nitroge n measurement (mass/volume)Ordered By: Denzel Carlin on 08-04-2024 Urea nitrogen [Mass/Vol] 37 mg/dL High 4-19 [facility] Sodium levelOrdered By: Morris Carlin on 08-04-2024 Sodium [Moles/Vol] 136 mmol/L 133-145 [facility] Troponin T.cardiac [Mass/vol ume] in Serum or Plasma by High sensitivity methodOrdered By: Denzel Carlin on 08-04-2024 Troponin T.cardiac High sensitivity method [Mass/Vol] 32 ng/L High <22 [facility] Troponin T.cardiac High sensitivity method [Mass/Vol] 35 ng/L High <22 [facility] White blood cell (WBC) count Ordered By: eDnzel Carlin on 08-04-2024 WBC (Bld) [#/Vol] 7.3 10*3/uL 4.4-11.0 [facility] Anion gap in Serum or Plasma Ordered By: Chacorta Porter on 06-10-2024 Anion gap [Moles/Vol] 11 mmol/L - [facility] BUN/creatinine ratioOrdered By: Chacorta Porter on 06-10-2024 Urea nitrogen/Creatinine [Mass ratio] 14.1 mg/mg - [facility] Basic Metabolic Profile (BMP )on 06-10-2024 BUN/CRE 14.1 RATIO Normal 12-21 [facility] Comment on above: Performed By: #### L 500.2500 #### [facility] [address] [place], [address] Calcium [Mass/Vol] 8.5 mg/dL Normal 7.6-11.0 [facility] Comment on above: Performed By: #### L 500.2500 #### [facility] [address] [place], [address] Chloride [Moles/Vol] 99 mmol/L Normal 98-108 [facility] Comment on above: Performed By: #### L 500.2500 #### [facility] [address] [place], [address] CO2 [Moles/Vol] 23.9 mmol/L Normal 21.0-32.0 [facility] Comment on above: Performed By: #### L 500.2500 #### [facility] [address] [place], [address] Creatinine [Mass/Vol] 1.90 mg/dL High 0.70-1.20 [facility] Comment on above: Performed By: #### L 500.2500 #### [facility] [address] [place], [address] GAP 11 Normal 5-15 [facility] Comment on above: Performed By: #### L 500.2500 #### [facility] [address] [place], [address] GFR/1.73 sq M.predicted among non-blacks MDRD (S/P/Bld) [Vol rate/Area] 39 mL/min/{1.73_m2} Low >60 [facility] Comment on above: Result Comment: mL/m in/1.73m2 CKD-EPI Creatinine Equation (2020) Performed By: #### L 500.2500 #### [facility] [address] [place], [address] Glucose [Mass/Vol] 251 mg/dL High 70-99 [facility] Comment on above: Performed By: #### L 500.2500 #### [facility] [address] [place], [address] Potassium [Moles/Vol] 5.0 mmol/L Normal 3.3-5.1 [facility] Comment on above: Performed By: #### L 500.2500 #### [facility] [address] [place], [address] Sodium [Moles/Vol] 134 mmol/L Normal 133-145 [facility] Comment on above: Performed By: #### L 500.2500 #### [facility] [address] [place], [address] Urea nitrogen [Mass/Vol] 27 mg/dL High 4-19 [facility] Comment on above: Performed By: #### L 500.2500 #### [facility] [address] [place], [address] Carbon dioxide, total [Moles /volume] in Central venous bloodOrdered By: Chacorta Porter on 06-10-2024 CO2 [Moles/Vol] 23.9 mmol/L 21.0-32.0 [facility] Chloride assayOrdered By: Lata Porter on 06-10-2024 Chloride [Moles/Vol] 99 mmol/L 98-108 [facility] GFR/1.73 sq M.predicted chay g non-blacks MDRD (S/P/Bld) [Vol rate/Area]Ordered By: Chacorta Porter on 06-10-2024 Estimated GFR (MDRD) Non-Af Amer 39 Low >60 [facility] Comment on above: mL/min/1.73m2 CKD-EP I Creatinine Equation (2020) Glomerular filtration rate ( GFR) estimation/1.73 sq m using serum, plasma, or whole bOrdered By: Chacorta Porter on 06-10-2024 GFR/1.73 sq M.predicted among non-blacks MDRD (S/P/Bld) [Vol rate/Area] 39 mL/min/{1.73_m2} Low >60 [facility] Comment on above: mL/min/1.73m2 CKD-EP I Creatinine Equation (2020) Potassium (Unsp spec) [Mass/ Vol]Ordered By: Chacorta Porter on 06-10-2024 Potassium [Moles/Vol] 5.0 mmol/L 3.3-5.1 [facility] Potassium measurement (mass/ volume)Ordered By: Chacorta Porter on 06-10-2024 Potassium (Unsp spec) [Mass/Vol] 5.0 mmol/L 3.3-5.1 [facility] Serum creatinine measurement (mass/volume)Ordered By: Chacorta Porter on 06-10-2024 Creatinine [Mass/Vol] 1.90 mg/dL High 0.70-1.20 [facility] Serum glucose measurement (m ass/volume)Ordered By: Chacorta Porter on 06-10-2024 Glucose [Mass/Vol] 251 mg/dL High 70-99 [facility] Serum or plasma calcium tiera urement (mass/volume)Ordered By: Chacorta Porter on 06-10-2024 Calcium [Mass/Vol] 8.5 mg/dL 7.6-11.0 [facility] Serum or plasma urea nitroge n measurement (mass/volume)Ordered By: Chacorta Porter on 06-10-2024 Urea nitrogen [Mass/Vol] 27 mg/dL High 4-19 [facility] Sodium levelOrdered By: Chacorta Porter on 06-10-2024 Sodium [Moles/Vol] 134 mmol/L 133-145 [facility] Cardiology Visit Reporton Cardiology Visit Report [facility] [address] [place] [address] OFFICE VISIT Date of Service: 05/19/24 MR#: [id number] Acct: [id number] Name: OLIVIER MENDOZA Rep #: [id number] : 1960 Provider: SHAUN lau Age/Sex: 63/M Location: [facility] Status: Signed HPI HPI History of Present Illness Details: This is a 63-year-old gentleman who presents here today for a cardiovascular follow-up visit. He has a history of hypertension, hyperlipidemia, carotid artery disease, obstructive sleep apnea, and diabetes. In February of 2020, he presented to the emergency room with chest pain with negative troponins. He had an abnormal EKG with changes concerning ischemia, and a stress test that was negative for ischemia. He underwent a cardiac catheterization 05/2020, which demonstrated diffuse coronary artery disease with small vessels noted in the entire coronary vasculature. He is established with Dr. Tilley. He denies chest, arm, jaw, or neck discomfort. He denies palpitations. He states bilateral lower extremity edema. He denies claudication. He states shortness of breath with activity such yard work (picking up logs) and shortness of breath at rest such as after activity that improves with rest. He denies orthopnea or PND. He denies chronic cough. He denies significant, sudden weight gain. He denies lightheadedness, dizziness, near-syncope, or syncope. He denies blood in urine, blood in stool, or epistaxis. He denies fever with chills. He denies myalgia. He denies fatigue. His exercise level has remained stable. 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 Is patient in pain?: No Allergies latex Allergy (Unknown, Verified 05/19/24 10:31) Unknown Ifmlszq-HCO-WyW Reductase Inhibitor (Wjbamni-Gyz-Rkg Reductase Inhibitor) Adverse Reaction (Severe, Verified 05/19/24 10:31) muscle pain Medications ???Medication ???Instructions ???Recorded ???Confirmed ???Type insulin lispro 100 unit/mL See Rx Instructions subcut TID 04/2305/19/24 History subcutaneous pen (Humalog KwikPen e10.9 (U-100) Insulin) blood sugar diagnostic #360 ea 01/25/21 01/16/24 Rx blood-glucose meter (OneTouch #1 ea 01/25/21 01/16/24 Rx Ultra2 Meter kit) insulin needles (disposable) 30 X ##1 01/25/21 01/16/24 History 3/4 insulin syr/ndl U100 half gilmar 0.3 #100 ea 01/25/21 01/16/24 Rx mL 31 gauge x 1/4 pen needle, diabetic 31 gauge x #100 ea 01/25/21 01/16/24 Rx 3/16 (BD Ultra-Fine Mini Pen Needle) handicap placard See Rx Instructions .Route 2 01/16/24 Rx .COMPLEX #1 unit insulin glargine 100 unit/mL (3 25 unit subcut DAILY e10.9 2 05/19/24 History mL) subcutaneous pen (Lantus Solostar U-100 Insulin) albuterol sulfate 90 mcg/actuation 2 puff inhalation Q4-6H PRN 04/0505/19/24 Rx aerosol inhaler shortness of breath or wheezing #6.7 grams evolocumab 140 mg/mL subcutaneous 140 mg subcut Q2W #2 mL 06/06/23 05/19/24 Rx pen injector (Andres Titus) amlodipine 5 mg tablet 5 mg PO DAILY #90 tabs 11/13/23 Rx fluticasone propionate 50 1 spray intranasal DAILY PRN nasal 12/20/23 05/19/24 Rx mcg/actuation nasal congestion #16 grams spray,suspension compress.barbara caballero neeros,reg,lrg #2 ea 01/09/24 01/16/24 Rx losartan 100 mg tablet 100 mg PO DAILY #90 tabs 01/20/24 05/19/24 Rx tadalafil 5 mg tablet 5 mg PO DAILY 03/11/24 05/19/24 Hi story doxazosin 2 mg tablet 2 mg PO QHS #90 tabs 04/17/2405/02 Rx levothyroxine 150 mcg tablet 150 mcg PO DAILY #90 tabs 04/23/24 05/19/24 Rx blood-glucose sensor (FreeStyle 05/07/24 05/07/24 History Daron 2 Plus Sensor device) hydrochlorothiazide 25 mg tablet 25 mg PO QDAY 05/07/24 05/19/24 Hi story carvedilol 12.5 mg tablet 25 mg PO BID 05/19/24 05/19/24 His tory cholecalciferol (vitamin D3) 50 2,000 unit PO DAILY 05/19/2405/19 History mcg (2,000 unit) capsule furosemide 20 mg tablet 40 mg PO QAM 05/19/24 05/19/24 His tory omeprazole 40 mg capsule,delayed 40 mg PO QDAY PRN 05/19/24 Histor y release Ejection fraction %: 65 Have you fallen in the past year?: No [facility] History Claudication of both lower extremities Hilar density Abnormal chest xray Preop cardiovascular exam CKD (chronic kidney disease), stage III GERD (gastroesophageal reflux disease) Chest congestion Preoperative evaluation to rule out surgical contraindication (more content not included)... Normal [facility] Absolute lymphocyte countOrd ered By: Sherice Avendano on 05-15-2024 Lymphocytes Auto (Unsp spec) [#/Vol] 0.88 10*3/uL 0.83-4.51 [facility] Absolute neutrophil countOrd ered By: Sherice Avendano on 05-15-2024 Neutrophils (Bld) [#/Vol] 3.7 10*3/uL 2.0-7.7 [facility] Albumin DL <= 20 mg/L (U) [M ass/Vol]Ordered By: Sherice Avendano on 05-15-2024 Urine Random Microalbumin 498.0 mg/L NO RANGE EST. [facility] Anion gap in Serum or Plasma Ordered By: Sherice Avendano on 05-15-2024 Anion gap [Moles/Vol] 11 mmol/L 5-15 [facility] Automated lymphocyte count a s percentage of total leukocytesOrdered By: Sherice Avendano on 05-15-2024 Lymphocytes/100 WBC Auto (Unsp spec) 16.6 % Low 19-41 [facility] BUN/creatinine ratioOrdered By: [facility] Av[facility] on 05-15-2024 Urea nitrogen/Creatinine [Mass ratio] 16.5 mg/mg 10- [facility] Basophil percentageOrdered B y: Sherice Avendano on 05-15-2024 Basophils/100 WBC (Bld) 0.6 % 0-1 [facility] Bilirubin, totalOrdered By: Sherice Avendano on 05-15-2024 Bilirubin [Mass/Vol] 0.40 mg/dL 0.00-1.30 [facility] CBC W/Diff, Automatedon 05-02 Absolute Lymph 0.88 X10 3/uL Normal 0.83-4.51 [facility] Comment on above: Performed By: #### L 100.0100 #### [facility] [address] [place], [address] Absolute Neut 3.7 X10 3/uL Normal 2.0-7.7 [facility] Comment on above: Performed By: #### L 100.0100 #### [facility] [address] [place], [address] Basophils/100 WBC (Bld) 0.6 % Normal 0-1 [facility] Comment on above: Performed By: #### L 100.0100 #### [facility] [address] [place], [address] Eosinophils/100 WBC (Bld) 4.2 % Normal 0-5 [facility] Comment on above: Performed By: #### L 100.0100 #### [facility] [address] [place], [address] Erythrocyte distribution width (RBC) [Ratio] 14.0 % Normal 11.6-14.6 [facility] Comment on above: Performed By: #### L 100.0100 #### [facility] [address] [place], [address] Hematocrit (Bld) [Volume fraction] 33.9 % Low 40-54 [facility] Comment on above: Performed By: #### L 100.0100 #### [facility] [address] [place], [address] Hemoglobin (Bld) [Mass/Vol] 11.0 g/dL Low 13.0-16.5 [facility] Comment on above: Performed By: #### L 100.0100 #### [facility] [address] [place], [address] IG% 0.200 Normal 0.0-0.9 [facility] Comment on above: Result Comment: IG% - Immature Granulocytes (promyelocytes, myelocytes and metamyelocytes) > 1% indicates that a LEFT SHIFT is Present. Performed By: #### L 100.0100 #### [facility] [address] [place], [address] Lymphocytes/100 WBC (Bld) 16.6 % Low 19-41 [facility] Comment on above: Performed By: #### L 100.0100 #### [facility] [address] [place], [address] MCH (RBC) [Entitic mass] 29.5 pg Normal 27.0-32.0 [facility] Comment on above: Performed By: #### L 100.0100 #### [facility] [address] [place], [address] MCHC (RBC) [Mass/Vol] 32.4 g/dL Normal 32-36 [facility] Comment on above: Performed By: #### L 100.0100 #### [facility] [address] [place], [address] MCV (RBC) [Entitic vol] 90.9 fL Normal 80-94 [facility] Comment on above: Performed By: #### L 100.0100 #### [facility] [address] [place], [address] Monocytes/100 WBC (Bld) 9.4 % Normal 0-10 [facility] Comment on above: Performed By: #### L 100.0100 #### [facility] [address] [place], [address] Neutrophils/100 WBC (Bld) 69.0 % Normal 47-70 [facility] Comment on above: Performed By: #### L 100.0100 #### [facility] [address] [place], [address] Nucleated RBC (Bld) [#/Vol] 0 10*3/uL Normal 0-5 [facility] Comment on above: Performed By: #### L 100.0100 #### [facility] [address] [place], [address] Platelet mean volume (Bld) [Entitic vol] 9.4 fL Normal 6.2-12.0 [facility] Comment on above: Performed By: #### L 100.0100 #### [facility] [address] [place], [address] Platelets (Bld) [#/Vol] 369 10*3/uL Normal 150-450 [facility] Comment on above: Performed By: #### L 100.0100 #### [facility] [address] [place], [address] RBC (Bld) [#/Vol] 3.73 10*6/uL Low 4.6-6.2 [facility] Comment on above: Performed By: #### L 100.0100 #### [facility] [address] [place], [address] RDW SD 46.3 fl High 35.1-43.9 [facility] Comment on above: Performed By: #### L 100.0100 #### [facility] [address] [place], [address] WBC (Bld) [#/Vol] 5.3 10*3/uL Normal 4.4-11.0 [facility] Comment on above: Performed By: #### L 100.0100 #### [facility] [address] [place], [address] Calculated very low density lipoprotein (VLDL) cholesterol measurementOrdered By: Sherice Avendano on 05-15-2024 Calculated very low density lipoprotein (VLDL) cholesterol measurement 16 mg/dL 5-40 [facility] VLDL Cholesterol 16 mg/dL 5-40 [facility] Carbon dioxide, total [Moles /volume] in Central venous bloodOrdered By: Sherice Avendano on 05-15-2024 CO2 [Moles/Vol] 22.5 mmol/L 21.0-32.0 [facility] Chloride assayOrdered By: Raul Avendano on 05-15-2024 Chloride [Moles/Vol] 102 mmol/L 98-108 [facility] Comprehensive Metabolic Prof ilon 05-15-2024 Albumin [Mass/Vol] 3.7 g/dL Normal 3.4-4.8 [facility] Comment on above: Performed By: #### L 100.0100, L501.4021, L500.2500 #### [facility] [address] [place], [address] Albumin/Globulin [Mass ratio] 1.2 {ratio} Normal 0.9-2.4 [facility] Comment on above: Performed By: #### L 100.0100, L501.4021, L500.2500 #### [facility] [address] [place], [address] ALK PHOS 160 U/L High 40-129 [facility] Comment on above: Performed By: #### L 100.0100, L501.4021, L500.2500 #### [facility] [address] [place], [address] ALT [Catalytic activity/Vol] 16 U/L Normal <=46 [facility] Comment on above: Performed By: #### L 100.0100, L501.4021, L500.2500 #### [facility] [address] [place], [address] AST [Catalytic activity/Vol] 16 U/L Normal <=37 [facility] Comment on above: Performed By: #### L 100.0100, L501.4021, L500.2500 #### [facility] [address] [place], [address] Bilirubin [Mass/Vol] 0.40 mg/dL Normal 0.00-1.30 [facility] Comment on above: Performed By: #### L 100.0100, L501.4021, L500.2500 #### [facility] [address] [place], [address] BUN/CRE 16.5 RATIO Normal 10-20 [facility] Comment on above: Performed By: #### L 100.0100, L501.4021, L500.2500 #### [facility] [address] [place], [address] Calcium [Mass/Vol] 8.8 mg/dL Normal 7.6-11.0 [facility] Comment on above: Performed By: #### L 100.0100, L501.4021, L500.2500 #### [facility] [address] [place], [address] Chloride [Moles/Vol] 102 mmol/L Normal 98-108 [facility] Comment on above: Performed By: #### L 100.0100, L501.4021, L500.2500 #### [facility] [address] [place], [address] CO2 [Moles/Vol] 22.5 mmol/L Normal 21.0-32.0 [facility] Comment on above: Performed By: #### L 100.0100, L501.4021, L500.2500 #### [facility] [address] [place], [address] Creatinine [Mass/Vol] 2.17 mg/dL High 0.70-1.20 [facility] Comment on above: Performed By: #### L 100.0100, L501.4021, L500.2500 #### [facility] [address] [place], [address] GAP 11 Normal 5-15 [facility] Comment on above: Performed By: #### L 100.0100, L501.4021, L500.2500 #### [facility] [address] [place], [address] GFR/1.73 sq M.predicted among non-blacks MDRD (S/P/Bld) [Vol rate/Area] 33 mL/min/{1.73_m2} Low >60 [facility] Comment on above: Result Comment: mL/m in/1.73m2 CKD-EPI Creatinine Equation (2020) Performed By: #### L 100.0100, L501.4021, L500.2500 #### [facility] [address] [place], [address] Globulin (S) [Mass/Vol] 3.2 g/dL Normal 2.2-4.2 [facility] Comment on above: Performed By: #### L 100.0100, L501.4021, L500.2500 #### [facility] [address] [place], [address] Glucose [Mass/Vol] 121 mg/dL High 70-99 [facility] Comment on above: Performed By: #### L 100.0100, L501.4021, L500.2500 #### [facility] [address] [place], [address] Potassium [Moles/Vol] 5.1 mmol/L Normal 3.3-5.1 [facility] Comment on above: Performed By: #### L 100.0100, L501.4021, L500.2500 #### [facility] [address] [place], [address] Sodium [Moles/Vol] 136 mmol/L Normal 133-145 [facility] Comment on above: Performed By: #### L 100.0100, L501.4021, L500.2500 #### [facility] [address] [place], [address] T PROT 6.9 g/dL Normal 5.9-8.4 [facility] Comment on above: Performed By: #### L 100.0100, L501.4021, L500.2500 #### [facility] [address] [place], [address] Urea nitrogen [Mass/Vol] 36 mg/dL High 4-19 [facility] Comment on above: Performed By: #### L 100.0100, L501.4021, L500.2500 #### [facility] [address] [place], [address] Creatinine Unsp time (U) [Ma ss/Vol]Ordered By: Sherice Avendano on 05-15-2024 Creatinine (U) [Mass/Vol] 16.90 mg/dL Low 39-259 [facility] Eosinophil percentageOrdered By: Sherice Avendano on 05-15-2024 Eosinophils/100 WBC (Bld) 4.2 % 0-5 [facility] Erythrocyte distribution wid th ratioOrdered By: Sherice Avendano on 05-15-2024 Erythrocyte distribution width (RBC) [Ratio] 14.0 % 11.6-14.6 [facility] Erythrocyte distribution wid th standard deviationOrdered By: Sherice Avendano on 05-15-2024 Erythrocyte distribution width (RBC) [Entitic vol] 46.3 fL High 35.1-43.9 [facility] Erythrocyte distribution width (RBC) [Ratio] 46.3 fl High 35.1-43.9 [facility] GFR/1.73 sq M.predicted chay g non-blacks MDRD (S/P/Bld) [Vol rate/Area]Ordered By: Sherice Avendano on 05-15-2024 Estimated GFR (MDRD) Non-Af Amer 33 Low >60 [facility] Comment on above: mL/min/1.73m2 CKD-EP I Creatinine Equation (2020) Glomerular filtration rate ( GFR) estimation/1.73 sq m using serum, plasma, or whole bOrdered By: Sherice Avendano on 05-15-2024 GFR/1.73 sq M.predicted among non-blacks MDRD (S/P/Bld) [Vol rate/Area] 33 mL/min/{1.73_m2} Low >60 [facility] Comment on above: mL/min/1.73m2 CKD-EP I Creatinine Equation (2020) Hematocrit Auto (Bld) [Volum e fraction]Ordered By: Sherice Avendano on 05-15-2024 Hematocrit (Bld) [Volume fraction] 33.9 % Low 40-54 [facility] Hemoglobin A1con 05-15-2024 HbA1c (Bld) [Mass fraction] 8.9 % Normal <=5.6 [facility] Comment on above: Performed By: #### L 100.0100, L501.4021, L500.2500 #### [facility] [address] [place] [address]. [place], [address] Hemoglobin A1c percentageOrd ered By: Sherice Avendano on 05-15-2024 HbA1c (Bld) [Mass fraction] 8.9 % >5.7 [facility] Hemoglobin measurementOrdere d By: Sherice Avendano on 05-15-2024 Hemoglobin (Bld) [Mass/Vol] 11.0 g/dL Low 13.0-16.5 [facility] Immature granulocytes/100 WB C Auto (Bld)Ordered By: Sherice Avendano on 05-15-2024 Immature granulocytes/100 WBC (Bld) 0.200 % 0.0-0.9 [facility] Comment on above: IG% - Immature Granu locytes (promyelocytes, myelocytes and metamyelocytes) > 1% indicates that a LEFT SHIFT is Present. L506.1001on 05-15-2024 Vitamin D 25-OH 29.1 ng/mL Low 30-100 [facility] Comment on above: Result Comment: Laisha min D Status Deficiency: <20 ng/mL (50nmol/L) Insufficiency: 20-30 ng/mL (50-75 nmol/L) Sufficiency: 30-100 ng/mL (75-250 nmol/L) Toxicity: >100 ng/mL (>250 nmol/L) Performed By: #### L 100.0100, L501.4021, L500.2500 #### [facility] [place], [address] LDL calc ser/plasOrdered By: Sherice Avendano on 05-15-2024 Cholesterol in LDL [Mass/Vol] 62 mg/dL [facility] Comment on above: Snghvamehy=973-940 m g/dL & Higher Ukhg=425 mg/dL or greater LDL Cholesterol, Calculated 62 mg/dL [facility] Comment on above: Qekvzuobxl=269-494 m g/dL & Higher Bzvx=432 mg/dL or greater Laboratory - Chemistry and C hemistry - challengeOrdered By: Sherice Avendano on 05-15-2024 AST [Catalytic activity/Vol] 16 U/L <38 [facility] Lipid Profileon 05-15-2024 CHOL:HDL 2.36 Normal [facility] Comment on above: Performed By: #### L 100.0100, L501.4021, L500.2500 #### [facility] [address] [place], [address] Cholesterol [Mass/Vol] 135 mg/dL Normal <=200 [facility] Comment on above: Result Comment: Chol esterol level, Desirable <200 mg/dL Borderline high cholesterol 200-239 mg/dL High cholesterol >=240 mg/dL Recommendations of the NCEP Adult Treatment Panel for the following risk-cutoff thresholds for the [place] population. Performed By: #### L 100.0100, L501.4021, L500.2500 #### [facility] [address] [place], [address] Cholesterol in HDL [Mass/Vol] 57 mg/dL Normal [facility] Comment on above: Result Comment: Mela onal Cholesterol Education Program (NCEP) guidelines: <40 mg/dL: Low HDL-cholesterol (major risk factor for CHD) >= 60 mg/dL: High HDL-cholesterol (negative risk factor for CHD) HDL-cholesterol is affected by a number of factors, e.g. smoking, exercise, hormones, sex and age. Performed By: #### L 100.0100, L501.4021, L500.2500 #### [facility] [address] [place], [address] Cholesterol in LDL [Mass/Vol] 62 mg/dL Normal [facility] Comment on above: Result Comment: Bord jzvehl=214-757 mg/dL Higher Konz=752 mg/dL or greater Performed By: #### L 100.0100, L501.4021, L500.2500 #### [facility] [address] [place], [address] Cholesterol in VLDL [Mass/Vol] 16 mg/dL Normal 5-40 [facility] Comment on above: Performed By: #### L 100.0100, L501.4021, L500.2500 #### [facility] [address] [place], [address] Triglyceride [Mass/Vol] 80 mg/dL Normal [facility] Comment on above: Result Comment: The drugs N-Acetylcysteine and Metamizole may falsely depress this assay. Normal range: <150 mg/dL Borderline High: 150-199 mg/dL High: 200-499 mg/dL Very High: >500 mg/dL Performed By: #### L 100.0100, L501.4021, L500.2500 #### [facility] [address] [place], [address] Lymphocytes Auto (Unsp spec) [#/Vol]Ordered By: Sherice Avendano on 05-15-2024 Lymphocytes (Bld) [#/Vol] 0.88 10*3/uL 0.83-4.51 [facility] Lymphocytes/100 WBC Auto (Un sp spec)Ordered By: Sherice Avendano on 05-15-2024 Lymphocytes/100 WBC (Bld) 16.6 % Low 19-41 [facility] MCV (mean corpuscular volume ) determinationOrdered By: Sherice Avendano on 05-15-2024 MCV (RBC) [Entitic vol] 90.9 fL 80-94 [facility] Mean corpuscular hemoglobin (MCH) determinationOrdered By: Sherice Avendano on 05-15-2024 MCH (RBC) [Entitic mass] 29.5 pg 27.0-32.0 [facility] Mean corpuscular hemoglobin concentration (MCHC) determinationOrdered By: Sherice Avendano on 05-15-2024 MCHC (RBC) [Mass/Vol] 32.4 g/dL 32-36 [facility] Mean platelet volume determi nationOrdered By: Sherice Avendano on 05-15-2024 Platelet mean volume (Bld) [Entitic vol] 9.4 fL 6.2-12.0 [facility] Microalbumin/creat ratio urO rdered By: Sherice Avendano on 05-15-2024 Urine Microalbumin/Creatinine Ratio 67222.5 mg/g CRE [facility] Monocyte percentageOrdered B y: Sherice Avendano on 05-15-2024 Monocytes/100 WBC (Bld) 9.4 % 0-10 [facility] Neutrophil percentageOrdered By: Sherice Avnedano on 05-15-2024 Neutrophils/100 WBC (Bld) 69.0 % 47-70 [facility] Nucleated red blood cell per centageOrdered By: Sherice Avendano on 05-15-2024 Nucleated RBC/100 WBC (Bld) [Ratio] 0 % 0-5 [facility] Platelet countOrdered By: Raul Avendano on 05-15-2024 Platelets (Bld) [#/Vol] 369 10*3/uL 150-450 [facility] Potassium (Unsp spec) [Mass/ Vol]Ordered By: Sherice Avendano on 05-15-2024 Potassium [Moles/Vol] 5.1 mmol/L 3.3-5.1 [facility] Potassium measurement (mass/ volume)Ordered By: Sherice Avendano on 05-15-2024 Potassium (Unsp spec) [Mass/Vol] 5.1 mmol/L 3.3-5.1 [facility] RBC Auto (Bld) [#/Vol]Ordere d By: Sherice Avendano on 05-15-2024 RBC (Bld) [#/Vol] 3.73 10*6/uL Low 4.6-6.2 [facility] Random urine creatinine tiera urement (mass/volume)Ordered By: Sherice Avendano on 05-15-2024 Creatinine Unsp time (U) [Mass/Vol] 16.90 mg/dL Low 39-259 [facility] Screening total cholesterol/ high density lipoprotein (HDL) cholesterol ratioOrdered By: Sherice Avendano on 05-15-2024 Cholesterol.total/Choles terol in HDL [Mass ratio] 2.36 {ratio} [facility] Serum creatinine measurement (mass/volume)Ordered By: Sherice Avendano on 05-15-2024 Creatinine [Mass/Vol] 2.17 mg/dL High 0.70-1.20 [facility] Serum globulin measurementOr dered By: Sherice Avendano on 05-15-2024 Globulin (S) [Mass/Vol] 3.2 g/dL 2.2-4.2 [facility] Serum glucose measurement (m ass/volume)Ordered By: Sherice Avendano on 05-15-2024 Glucose [Mass/Vol] 121 mg/dL High 70-99 [facility] Serum or plasma alanine bradford otransferase (ALT) measurementOrdered By: Sherice Avendano on 05-15-2024 ALT [Catalytic activity/Vol] 16 U/L <47 [facility] Serum or plasma albumin tiera urement (mass/volume)Ordered By: Sherice Avendano on 05-15-2024 Albumin [Mass/Vol] 3.7 g/dL 3.4-4.8 [facility] Serum or plasma albumin/glob ulin mass ratioOrdered By: Sherice Avendano 05-15-2024 Albumin/Globulin [Mass ratio] 1.2 {ratio} 0.9-2.4 [facility] Serum or plasma alkaline lahsell sphatase measurementOrdered By: Sherice Avendano on 05-15-2024 ALP [Catalytic activity/Vol] 160 U/L High 40-129 [facility] Serum or plasma calcium tiera urement (mass/volume)Ordered By: Sherice Avendano 05-15-2024 Calcium [Mass/Vol] 8.8 mg/dL 7.6-11.0 [facility] Serum or plasma cholesterol in HDL measurement (mass/volume)Ordered By: Sherice Avendano 05-15-2024 Cholesterol in HDL [Mass/Vol] 57 mg/dL >40 [facility] Comment on above: National Cholesterol Education Program (NCEP) guidelines:<40 mg/dL: Low HDL-cholesterol (major risk factor for CHD)>= 60 mg/dL: High HDL-cholesterol (negative risk factor for CHD)HDL-cholesterol is affected by a number of factors, e.g. smoking, exercise, hormones, sex and age. Serum or plasma cholesterol measurement (mass/volume)Ordered By: Sherice Avendano on 05-15-2024 Cholesterol [Mass/Vol] 135 mg/dL <201 [facility] Comment on above: Cholesterol level, D esirable <200 mg/dLBorderline high cholesterol 200-239 mg/dLHigh cholesterol >=240 mg/dLRecommendations of the NCEP Adult Treatment Panel for the following risk-cutoff thresholds for the [place] population. Serum or plasma urea nitroge n measurement (mass/volume)Ordered By: Sherice Avendano on 05-15-2024 Urea nitrogen [Mass/Vol] 36 mg/dL High 4-19 [facility] Sodium levelOrdered By: uLis A tranzioneros Avendano on 05-15-2024 Sodium [Moles/Vol] 136 mmol/L 133-145 [facility] TSH DL <= 0.005 mIU/L QnOrde red By: Sherice Avendano on 05-15-2024 Thyroid Stimulating Hormone (TSH) 2.570 uIU/mL 0.300-4.200 [facility] TSH Qn 2.570 uIU/mL 0.300-4.200 [facility] Thyroid Stim Hormone (TSH)on 05-15-2024 TSH 2.570 uIU/mL Normal 0.300-4.200 [facility] Comment on above: Performed By: #### L 100.0100, L501.4021, L500.2500 #### [facility] [address] [place], [place], [id number] Total proteinOrdered By: John Avendano on 05-15-2024 Protein [Mass/Vol] 6.9 g/dL 5.9-8.4 [facility] Triglycerides measurementOrd ered By: Sherice Avendano on 05-15-2024 Triglyceride [Mass/Vol] 80 mg/dL <199 [facility] Comment on above: The drugs N-Acetylcy steine and Metamizole may falsely depress this assay. Normal range: <150 mg/dLBorderline High: 150-199 mg/dLHigh: 200-499 mg/dLVery High: >500 mg/dL Urine albumin measurement wi th detection limit of 20 mg/L or less (mass/volume)Ordered By: Sherice Avendano on 05-15-2024 Albumin DL <= 20 mg/L (U) [Mass/Vol] 498.0 mg/L NO RANGE EST. [facility] Vitamin D, 25-hydroxyOrdered By: Sherice Avendano on 05-15-2024 Vitamin D 25-Hydroxy 29.1 ng/mL Low 30-100 [facility] Comment on above: Vitamin D StatusDefi ciency: <20 ng/mL (50nmol/L)Insufficiency: 20-30 ng/mL (50-75 nmol/L)Sufficiency: 30-100 ng/mL (75-250 nmol/L)Toxicity: >100 ng/mL (>250 nmol/L) White blood cell (WBC) count Ordered By: Sherice Avendano on 05-15-2024 WBC (Bld) [#/Vol] 5.3 10*3/uL 4.4-11.0 [facility] Internal Medicine Office Vis iton 05-07-2024 Internal Medicine Office Visit [facility] [address] [place] [address] [place] [address] OFFICE VISIT Date of Service: 05/07/24 MR#: [id number] Acct: [id number] Name: OLIVIER MENDOZA Rep #: [id number] : 1960 Provider: Dr. Sherice rock MD Age/Sex: 63/M Location: [facility] Status: Signed Intake Vital Signs 01/09/24 14:20 03/11/24 14:19 05/07/24 13:35 Height 5 ft 7 in 5 ft 7 in 5 ft 7 in Weight: 179 lb BMI 28.0 BP 138/84 H Blood Pressure Location Lt brachial Position Sitting Respiration 16 Pulse 77 Pulse Source Monitor Temp 97.3 F L Temp Source Temporal Pulse Oximetry (%) 99 Oxygen Delivery Method room air Intake Visit Reasons: 4 M FU Chief Complaint: Follow-up chronic conditions 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 Is patient in pain?: No Allergies latex Allergy (Unknown, Verified 05/07/24 13:25) Unknown Hibkfxm-ZCN-XmS Reductase Inhibitor (Auwlbur-Fem-Miu Reductase Inhibitor) Adverse Reaction (Severe, Verified 05/07/24 13:25) muscle pain Medications ???Medication ???Instructions ???Recorded ???Confirmed ???Type insulin lispro 100 unit/mL See Rx Instructions subcut TID 04/2305/07/24 History subcutaneous pen (Humalog KwikPen e10.9 (U-100) Insulin) cholecalciferol (vitamin D3) 50 50 mcg PO DAILY 03/11/20 05/07/24 History mcg (2,000 unit) capsule blood sugar diagnostic #360 ea 01/25/21 01/16/24 Rx blood-glucose meter (OneTouch #1 ea 01/25/21 01/16/24 Rx Ultra2 Meter kit) insulin needles (disposable) 30 X ##1 01/25/21 01/16/24 History 3/4 insulin syr/ndl U100 half gilmar 0.3 #100 ea 01/25/21 01/16/24 Rx mL 31 gauge x 1/4 pen needle, diabetic 31 gauge x #100 ea 01/25/21 01/16/24 Rx 3/16 (BD Ultra-Fine Mini Pen Needle) handicap placard See Rx Instructions .Route 2 01/16/24 Rx .COMPLEX #1 unit insulin glargine 100 unit/mL (3 25 unit subcut DAILY e10.9 2 05/07/24 History mL) subcutaneous pen (Lantus Solostar U-100 Insulin) albuterol sulfate 90 mcg/actuation 2 puff inhalation Q4-6H PRN 04/0503/11/24 Rx aerosol inhaler shortness of breath or wheezing #6.7 grams evolocumab 140 mg/mL subcutaneous 140 mg subcut Q2W #2 mL 06/06/23 05/07/24 Rx pen injector (Andres Titus) amlodipine 5 mg tablet 5 mg PO DAILY #90 tabs 11/13/23 Rx fluticasone propionate 50 1 spray intranasal DAILY PRN nasal 12/20/23 05/07/24 Rx mcg/actuation nasal congestion #16 grams spray,suspension compress.barbara caballero neeros,reg,lrg #2 ea 01/09/24 01/16/24 Rx losartan 100 mg tablet 100 mg PO DAILY #90 tabs 01/20/24 05/07/24 Rx tadalafil 5 mg tablet 5 mg PO DAILY 03/11/24 05/07/24 Hi story carvedilol 12.5 mg tablet 12.5 mg PO BID 04/16/24 05/07/24 H istory furosemide 20 mg tablet 20 mg PO QAM 04/16/24 05/07/24 His tory doxazosin 2 mg tablet 2 mg PO QHS #90 tabs 04/17/2408/26 Rx levothyroxine 150 mcg tablet 150 mcg PO DAILY #90 tabs 04/23/24 05/07/24 Rx blood-glucose sensor (FreeStyle 05/07/24 05/07/24 History Daron 2 Plus Sensor device) hydrochlorothiazide 25 mg tablet 25 mg PO QDAY 05/07/24 05/07/24 Hi story omeprazole 40 mg capsule,delayed 40 mg PO QDAY #90 caps 05/07/24 Rx release Have you fallen in the past year?: No [facility] Medical History (Updated 05/07/24 @ 16:[address] 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 Diabetic foot ulcer associated with diabetes mellitus due to underlying condition Decubitus ulcer of foot, stage 2 Carotid artery stenosis Bradycardia Granuloma annulare Hypothyroidism BPH (benign prostatic hyperplasia) Abdominal pain Sleep apnea Hearing problem Back problem High calcium levels Type 1 diabetes mellitus Meniere's disease Acquired plantar keratoderma Essential hypertension Surgical History Hx of bilateral cataract extraction ( 06/2022) History of left heart catheterization (05/09/20) History of removal of cyst History of eye surgery Family History Mother Diabetes Myocardial infarction Heart disease High cholesterol Grandmother Parkinson disease Father Prostate cancer Gra (more content not included)... Normal [facility] Stress Reporton 04-02-2024 Stress Report [facility] [address] [place] [address] MR#: [id number] Acct: [id number] Name: OLIVIER MENDOZA Rep #: [id number] : 1960 63 From: Pop Castellanos MD Primary Care: Dr. Sherice Avendano MD Status: REG CLI Referring Dr: Marlena Angel Sex: M C Stress Test Report Pharmacologic myocardial perfusion stress test. 63-year-old man with a history of coronary artery disease Resting EKG demonstrates sinus rhythm with a rate of 82 bpm. Premature ventricular complexes noted. Resting blood pressure is 142/84 mmHg. 0.4 mg of regadenoson was infused per usual protocol followed by rapid intravenous saline flush injection. Continuous EKG monitoring was performed. The maximum heart rate was 94 bpm which was 60% of max impacted heart rate the maximum workload was 1 metabolic equivalent. At rest there were no ST or T wave changes noted to suggest ischemia and at peak infusion nonspecific ST changes were noted which did not meet the criteria for ischemia. No clinical angina is noted. The final blood pressure was 130/80 mmHg. Myocardial perfusion protocol. 11.6 mCi of technetium 99m sestamibi was injected at rest. 0.4 mg of regadenoson was infused per usual protocol. At peak infusion 35 mCi of technetium 99m sestamibi was injected stress images were obtained stress and rest images were reconstructed and compared in the short axis vertical long and horizontal long axis. Gated images were also obtained. Perfusion SPECT analysis: Review of the stress images demonstrate normal uptake of tracer noted in all areas of the myocardium. The resting images similar demonstrated normal uptake of tracer noted in all areas of the myocardium. No areas of reversibility are noted to suggest ischemia and no previous infarct is noted. Gated SPECT analysis: The gated ejection fraction is 55%. Conclusion: Normal pharmacologic myocardial perfusion stress test. Preserved ejection fraction. 04/02/24722 Date Pop Castellanos MD CC: Dr. Sherice Avendano MD; ANIL Antoine Date Dictated: 04/02/24720 Date Transcribed: 04/02/24720 Aerospace Project Engineer: [place] Signed Normal [facility] Lower Ext Art Exam w/o Exerc bg 04-01-2024 Lower Ext Art Exam w/o Exercis [facility] [address] [place] [address] Lower Ext Art Exam w/o Exercis 04/01/24 0957 MR#: [id number] Acct: [id number] Name: OLIVIER MENDOZA Rep #: [id number] : 1960 63 From: Nicholas Teixeira MD Attending Dr: Marlena Angel, PA Status: REG CLI Ordering Dr: Marlena Angel PA Date: 03/05 11/26 Location: CVS Sex: M C Admitted: Reason For Study: Claudication Procedure A bilateral lower extremity continuous wave Doppler with analog waveform analysis,segmental pressures,and ankle brachial indexes without exercise. Left Segmental Pressures Left posterior tibial artery = >254mmHg. Left dorsalis pedis artery = 220mmHg. Left digit = 91 mmHg. The left dorsalis pedis waveforms are biphasic. The left posterior tibial artery waveforms are biphasic. Right Segmental Pressures Right brachial= 205mmHg. Right posterior tibial artery = 168mmHg. Right dorsalis pedis artery = >254mmHg. Right digit = 89 mmHg. The right dorsalis pedis waveforms are biphasic. The right posterior tibial artery waveforms are biphasic. Indices The right ankle brachial index by the dorsalis pedis is NC. The right ankle brachial index by the posterior tibial artery is 0.82. The right digital-brachial index is 0.43. The left ankle brachial index by the dorsalis pedis is 1.07. The left ankle brachial index by the posterior tibial artery is NC. The left digital-brachial index is 0.44. . Manual BP right arm 205/110. Patient had Nuclear Stress Test prior to testing and did not take medication. oracle ebs developer consulted and patient released home due to no symptoms, instructed to take meds and check BP when home. VL/Lower Ext Art Exam w/o Exercis Interpretation Summary Right ELROY 0.82, moderate arterial insufficiency. Doppler/PVR waveforms reveal distal SFA/popliteal disease. Left LEROY 1.07, normal. Doppler/PVR waveforms of the left leg mildly diminished at rest. __ Ordering Physician: Marlena Angel Referring Physician: Sherice Avendano Performed By: Olga Mays, T 04/01/24 1557 Date Nicholas Teixeira MD CC: Dr. Sherice Avendano MD; ANIL Antoine Date Dictated: 04/01/24 0957 Date Transcribed: 04/01/241556 Aerospace Project Engineer: Signed Normal [facility] Cardiology Visit Reporton Cardiology Visit Report [facility] [address] [place] [address] OFFICE VISIT Date of Service: 03/11/24 MR#: [id number] Acct: [id number] Name: OLIVIER MENDOZA Rep #: [id number] : 1960 Provider: ANIL Padilla Age/Sex: 63/M Location: [facility] Status: Signed HPI HPI History of Present Illness Details: This is a 63-year-old gentleman who presents here today for a cardiovascular follow-up visit. He has a history of hypertension, hyperlipidemia, carotid artery disease, obstructive sleep apnea, and diabetes. In February of 2020, he presented to the emergency room with chest pain with negative troponins. He had an abnormal EKG with changes concerning ischemia, and a stress test that was negative for ischemia. He underwent a cardiac catheterization 05/2020, which demonstrated diffuse coronary artery disease with small vessels noted in the entire coronary vasculature. He is established with Dr. Tilley. At his last OV he was started on hydralazine, he did not tolerate this. He urinated to much. He did not tolerate higher doses of amlodipine d/t leg swelling. He does use compression. He did not tolerated cardura. His Blood sugars have been better controlled. He does get muscle aches. His blood pressures have not been controlled for the last few months. Intake Vital Signs 01/16/24 13:59 03/11/24 14:19 Height 5 ft 7 in 5 ft 7 in Weight: 181 lb BMI 28.3 BP 191/103 H Blood Pressure Location Lt brachial Position Sitting Respiration 18 Pulse 66 Pulse Source Monitor Pulse Oximetry (%) 99 Intake Visit Reasons: 8 WK FU 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 Is patient in pain?: No Allergies latex Allergy (Unknown, Verified 03/11/24 14:21) Unknown Hyhhbnx-RDL-UqH Reductase Inhibitor (Doyhukf-Rka-Yea Reductase Inhibitor) Adverse Reaction (Severe, Verified 03/11/24 14:21) muscle pain Medications ???Medication ???Instructions ???Recorded ???Confirmed ???Type insulin lispro 100 unit/mL See Rx Instructions subcut TID 12/04/19 03/11/24 History subcutaneous pen (Humalog KwikPen e10.9 (U-100) Insulin) cholecalciferol (vitamin D3) 50 50 mcg PO DAILY 03/11/20 03/11/24 History mcg (2,000 unit) capsule blood sugar diagnostic #360 ea 01/25/21 01/16/24 Rx blood-glucose meter (OneTouch #1 ea 01/25/21 01/16/24 Rx Ultra2 Meter kit) insulin needles (disposable) 30 X ##1 01/25/21 01/16/24 History 3/4 insulin syr/ndl U100 half gilmar 0.3 #100 ea 01/25/21 01/16/24 Rx mL 31 gauge x 1/4 pen needle, diabetic 31 gauge x #100 ea 01/25/21 01/16/24 Rx 3/16 (BD Ultra-Fine Mini Pen Needle) handmihaelap alice See Rx Instructions .Route 05/25/21 01/16/24 Rx .COMPLEX #1 unit insulin glargine 100 unit/mL (3 25 unit subcut DAILY e10.9 01/01/22 03/11/24 History mL) subcutaneous pen (Lantus Solostar U-100 Insulin) albuterol sulfate 90 mcg/actuation 2 puff inhalation Q4-6H PRN 04/24/23 03/11/24 Rx aerosol inhaler shortness of breath or wheezing #6.7 grams evolocumab 140 mg/mL subcutaneous 140 mg subcut Q2W #2 mL 06/06/23 03/11/24 Rx pen injector (Andres Titus) amlodipine 5 mg tablet 5 mg PO DAILY #90 tabs 11/13/23 03/11/24 Rx doxazosin 1 mg tablet 1 mg PO QHS #90 TABLETS 12/18/23 03/11/24 Rx fluticasone propionate 50 1 spray intranasal DAILY PRN nasal 12/20/23 03/11/24 Rx mcg/actuation nasal congestion #16 grams spray,suspension compress.barbara caballero,reg,lrg #2 ea 01/09/24 01/16/24 Rx levothyroxine 150 mcg tablet 150 mcg PO DAILY #90 tabs 01/09/24 03/11/24 Rx losartan 100 mg tablet 100 mg PO DAILY #90 tabs 01/20/24 03/11/24 Rx carvedilol 3.125 mg tablet 3.125 mg PO BID #60 tabs 03/11/24 03/11/24 Rx tadalafil 5 mg tablet 5 mg PO DAILY 03/11/24 03/11/24 History Have you fallen in the past year?: No [facility] Medical History (Updated 03/11/24 @ 14:45 by Marlena MA, PA) Claudication of both lower extremities Hilar density Abnormal chest xray Preop cardiovascular exam CKD (chronic kidney disease), stage III GERD (gastroesophageal reflux disease) Chest congestion Preoperative evaluation to rule out surgical contraindication Sinusitis Skin cyst Fatigue Left elbow pain Health care maintenance Proteinuria Nephropathy Bilateral lower extremity edema COVID-19 vaccine series completed Atherosclerotic heart disease of lumbee coronary artery without angina pectoris Mixed hyperlipidemia 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 Normal [facility] Basic Metabolic Profile (BMP )on 03-10-2024 BUN/CRE 12.6 RATIO Normal 12-21 [facility] Comment on above: Order Comment: DR DELIA YADAV AND DR TILLEY ORDERD BMPDR ROOF ORDERD A LIVER AND LIPIDDR TREVA ORDERD A SPOT URIN Performed By: #### L 100.0100, L501.4021, L500.2500 #### [facility] [address] [place], [address] CA,Total 8.1 mg/dL Low 8.5-10.1 [facility] Comment on above: Order Comment: DR DELIA YADAV AND DR TILLEY ORDERD BMPDR ROOF ORDERD A LIVER AND LIPIDDR TREVA ORDERD A SPOT URIN Performed By: #### L 100.0100, L501.4021, L500.2500 #### [facility] [address] [place], [address] Chloride [Moles/Vol] 105 mmol/L Normal 98-107 [facility] Comment on above: Order Comment: DR DELIA YADAV AND DR TILLEY ORDERD BMPDR ROOF ORDERD A LIVER AND LIPIDDR TREVA ORDERD A SPOT URIN Performed By: #### L 100.0100, L501.4021, L500.2500 #### [facility] [address] [place], [address] CO2 [Moles/Vol] 28.0 mmol/L Normal 21.0-32.0 [facility] Comment on above: Order Comment: DR DELIA YADAV AND DR TILLEY ORDERD BMPDR ROOF ORDERD A LIVER AND LIPIDDR TREVA ORDERD A SPOT URIN Performed By: #### L 100.0100, L501.4021, L500.2500 #### [facility] [address] [place], [address] Creatinine [Mass/Vol] 2.23 mg/dL High 0.70-1.30 [facility] Comment on above: Order Comment: DR DELIA YADAV AND DR TILLEY ORDERD BMPDR ROOF ORDERD A LIVER AND LIPIDDR TREVA ORDERD A SPOT URIN Result Comment: The validity of the calculated GFR GFRAA in patients over 70 years has not been determined. Clinical correlation is essential. Performed By: #### L 100.0100, L501.4021, L500.2500 #### [facility] [address] [place], [address] EST GFR - AA 38 mL/min Low >60 [facility] Comment on above: Order Comment: DR DELIA YADAV AND DR TILLEY ORDERD BMPDR ROOF ORDERD A LIVER AND LIPIDDR TREVA ORDERD A SPOT URIN Result Comment: Afri can [place] GFR Calc Performed By: #### L 100.0100, L501.4021, L500.2500 #### [facility] [address] [place], [address] GAP 3 Low 5-15 [facility] Comment on above: Order Comment: DR DELIA YADAV AND DR TILLEY ORDERD BMPDR ROOF ORDERD A LIVER AND LIPIDDR TREVA ORDERD A SPOT URIN Performed By: #### L 100.0100, L501.4021, L500.2500 #### [facility] [address] [place], [address] GFR/1.73 sq M.predicted among non-blacks MDRD (S/P/Bld) [Vol rate/Area] 32 mL/min/{1.73_m2} Low >60 [facility] Comment on above: Order Comment: DR DELIA YADAV AND DR TILLEY ORDERD BMPDR ROOF ORDERD A LIVER AND LIPIDDR RTEVA ORDERD A SPOT URIN Result Comment: Non- GFR Calc Performed By: #### L 100.0100, L501.4021, L500.2500 #### [facility] [address] [place], [address] Glucose [Mass/Vol] 149 mg/dL High 74-106 [facility] Comment on above: Order Comment: DR DELIA YADAV AND DR TILLEY ORDERD BMPDR ROOF ORDERD A LIVER AND LIPIDDR TREVA ORDERD A SPOT URIN Result Comment: Fast ing Glucose result greater than or equal to 126 mg/dL suggests DIABETES MELLITUS per A.D.A. criteria. Performed By: #### L 100.0100, L501.4021, L500.2500 #### [facility] [address] [place], [address] Potassium [Moles/Vol] 4.4 mmol/L Normal 3.5-5.1 [facility] Comment on above: Order Comment: DR DELIA YADAV AND DR TILLEY ORDERD BMPDR ROOF ORDERD A LIVER AND LIPIDDR TREVA ORDERD A SPOT URIN Performed By: #### L 100.0100, L501.4021, L500.2500 #### [facility] [address] [place], [address] Sodium [Moles/Vol] 137 mmol/L Normal 136-145 [facility] Comment on above: Order Comment: DR DELIA YADAV AND DR TILLEY ORDERD BMPDR ROOF ORDERD A LIVER AND LIPIDDR TREVA ORDERD A SPOT URIN Performed By: #### L 100.0100, L501.4021, L500.2500 #### [facility] [address] [place], [address] Urea nitrogen [Mass/Vol] 28 mg/dL High 7-18 [facility] Comment on above: Order Comment: DR DELIA YADAV AND DR TILLEY ORDERD BMPDR ROOF ORDERD A LIVER AND LIPIDDR TREVA ORDERD A SPOT URIN Performed By: #### L 100.0100, L501.4021, L500.2500 #### [facility] [address] [place], [address] Bilirubin directOrdered By: Gennaro Fuentes on 03-10-2024 Bilirubin.direct [Mass/Vol] 0.12 mg/dL 0.00-0.30 [facility] Bilirubin, totalOrdered By: Gennaro Fuentes on 03-10-2024 Bilirubin [Mass/Vol] 0.50 mg/dL 0.20-1.00 [facility] Comment on above: For patients on eltr ombopag therapy, use of Dimension [place] TBIL is not recommended. Blood urea nitrogen (BUN)/cr eatinine ratioOrdered By: Gennaro Fuentes on 03-10-2024 Urea nitrogen/Creatinine [Mass ratio] 12.6 mg/mg 10-20 [facility] Carbon dioxide measurementOr dered By: Gennaro Fuentes on 03-10-2024 CO2 [Moles/Vol] 28.0 mmol/L 21.0-32.0 [facility] Chloride measurementOrdered By: Gennaro Fuentes on 03-10-2024 Chloride [Moles/Vol] 105 mmol/L 98-107 [facility] Estimated glomerular filtrat ion rate (GFR) AmericanOrdered By: Gennaro Fuentes on 03-10-2024 Estimated GFR (MDRD) Amer 38 mL/min Low >60 [facility] Comment on above: GFR Calc Glomerular filtration rate ( GFR) estimationOrdered By: Gennaro Fuentes on 03-10-2024 Estimated GFR (MDRD) Non-Af Amer 32 mL/min Low >60 [facility] Comment on above: Non- GFR Calc Glucose measurementOrdered B y: Gennaro Fuentes on 03-10-2024 Glucose [Mass/Vol] 149 mg/dL High 74-106 [facility] Comment on above: Fasting Glucose resu lt greater than or equal to 126 mg/dL suggests DIABETES MELLITUS per A.D.A. criteria. High density lipoprotein (HD L) measurementOrdered By: Gennaro Fuentes on 03-10-2024 Cholesterol in HDL [Mass/Vol] 69 mg/dL >40 [facility] Comment on above: The drugs N-Acetylcy steine and Metamizole may falsely depress this assay. Reference Range HDL <40 mg/dL Low HDL Cholesterol HDL >or= 60 mg/dL High HDL Cholesterol Laboratory - Chemistry and C hemistry - challengeOrdered By: Gennaro Fuentes on 03-10-2024 AST [Catalytic activity/Vol] 13 U/L Low 15-37 [facility] Lipid Profileon 03-10-2024 Cholesterol [Mass/Vol] 202 mg/dL High 200 [facility] Comment on above: Order Comment: DR DELIA YADAV AND DR TILLEY ORDERD BMPDR GERMAN ORDERD A LIVER AND LIPIDDR TREVA ORDERD A SPOT URIN Result Comment: <200 mg/dL Desirable 200-240 mg/dL Borderline >240 mg/dL High Risk Performed By: #### L 100.0100, L501.4021, L500.2500 #### [facility] [address] [place], [address] Cholesterol in HDL [Mass/Vol] 69 mg/dL Normal [facility] Comment on above: Order Comment: DR DELIA YADAV AND DR TILLEY ORDERD BMPDR ROOF ORDERD A LIVER AND LIPIDDR TREVA ORDERD A SPOT URIN Result Comment: The drugs N-Acetylcysteine and Metamizole may falsely depress this assay. Reference Range HDL <40 mg/dL Low HDL Cholesterol HDL >or= 60 mg/dL High HDL Cholesterol Performed By: #### L 100.0100, L501.4021, L500.2500 #### [facility] [address] [place], [address] Cholesterol in LDL [Mass/Vol] 113 mg/dL Normal 0-130 [facility] Comment on above: Order Comment: DR DELIA YADAV AND DR TILLEY ORDERD BMPDR ROOF ORDERD A LIVER AND LIPIDDR TREVA ORDERD A SPOT URIN Performed By: #### L 100.0100, L501.4021, L500.2500 #### [facility] [address] [place], [address] Cholesterol in VLDL [Mass/Vol] 20 mg/dL Normal 5-40 [facility] Comment on above: Order Comment: DR DELIA YADAV AND DR TILLEY ORDERD BMPDR ROOF ORDERD A LIVER AND LIPIDDR TREVA ORDERD A SPOT URIN Performed By: #### L 100.0100, L501.4021, L500.2500 #### [facility] [address] [place], [address] Triglyceride [Mass/Vol] 99 mg/dL Normal [facility] Comment on above: Order Comment: DR DELIA YADAV AND DR TILLEY ORDERD BMPDR ROOF ORDERD A LIVER AND LIPIDDR TREVA ORDERD A SPOT URIN Result Comment: The drugs N-Acetylcysteine and Metamizole may falsely depress this assay. Serum Triglycerides Reference Interval Normal <150 mg/dL Borderline high 150 - 199 mg/dL High 200 - 499 mg/dL Very High > or = 500 mg/dL Performed By: #### L 100.0100, L501.4021, L500.2500 #### [facility] [address] [place], [address] HDL Normal [facility] Comment on above: Result Comment: NOT NEEDED' The drugs N-Acetylcysteine and Metamizole may falsely depress this assay. Performed By: #### L 100.0100, L501.4021, L500.2500 #### [facility] [address] [place], [address] TRIG Normal [facility] Comment on above: Result Comment: NOT NEEDED' The drugs N-Acetylcysteine and Metamizole may falsely depress this assay. Performed By: #### L 100.0100, L501.4021, L500.2500 #### [facility] [address] [place], [address] CHOL Normal 200 [facility] Comment on above: Result Comment: NOT NEEDED' Performed By: #### L 100.0100, L501.4021, L500.2500 #### [facility] [address] [place], [address] LDL Normal 0-130 [facility] Comment on above: Result Comment: NOT NEEDED' Performed By: #### L 100.0100, L501.4021, L500.2500 #### [facility] [address] [place], [address] VLDL Normal 5-40 [facility] Comment on above: Result Comment: NOT NEEDED' Performed By: #### L 100.0100, L501.4021, L500.2500 #### [facility] [address] [place], [address] Liver Profileon 03-10-2024 Albumin [Mass/Vol] 2.8 g/dL Low 3.2-5.0 [facility] Comment on above: Order Comment: DR DELIA YADAV AND DR TILLEY ORDERD BMPDR ROOF ORDERD A LIVER AND LIPIDDR TREVA ORDERD A SPOT URIN Performed By: #### L 100.0100, L501.4021, L500.2500 #### [facility] [address] [place], [address] ALK P 203 U/L High 45-117 [facility] Comment on above: Order Comment: DR DELIA YADAV AND DR TILLEY ORDERD BMPDR ROOF ORDERD A LIVER AND LIPIDDR TREVA ORDERD A SPOT URIN Performed By: #### L 100.0100, L501.4021, L500.2500 #### [facility] [address] [place], [address] ALT [Catalytic activity/Vol] 24 U/L Normal 16-61 [facility] Comment on above: Order Comment: DR DELIA YADAV AND DR TILLEY ORDERD BMPDR ROOF ORDERD A LIVER AND LIPIDDR TREVA ORDERD A SPOT URIN Performed By: #### L 100.0100, L501.4021, L500.2500 #### [facility] [address] [place], [address] AST [Catalytic activity/Vol] 13 U/L Low 15-37 [facility] Comment on above: Order Comment: DR DELIA TILLEY ORDERD BMPDR ROOF ORDERD A LIVER AND LIPIDDR TREVA ORDERD A SPOT URIN Performed By: #### L 100.0100, L501.4021, L500.2500 #### [facility] [address] [place], [address] Bilirubin [Mass/Vol] 0.50 mg/dL Normal 0.20-1.00 [facility] Comment on above: Order Comment: DR DELIA YADAV AND DR TILLEY ORDERD BMPDR ROOF ORDERD A LIVER AND LIPIDDR TREVA ORDERD A SPOT URIN Result Comment: For patients on eltrombopag therapy, use of Dimension [place] TBIL is not recommended. Performed By: #### L 100.0100, L501.4021, L500.2500 #### [facility] [address] [place], [address] Bilirubin.direct [Mass/Vol] 0.12 mg/dL Normal 0.00-0.30 [facility] Comment on above: Order Comment: DR DELIA YADAV AND DR TILLEY ORDERD BMPDR ROOF ORDERD A LIVER AND LIPIDDR TREVA ORDERD A SPOT URIN Performed By: #### L 100.0100, L501.4021, L500.2500 #### [facility] [address] [place], [address] Globulin (S) [Mass/Vol] 3.7 g/dL Normal 2.2-4.2 [facility] Comment on above: Order Comment: DR DELIA YADAV AND DR TILLEY ORDERD BMPDR ROOF ORDERD A LIVER AND LIPIDDR TREVA ORDERD A SPOT URIN Performed By: #### L 100.0100, L501.4021, L500.2500 #### [facility] [address] [place], [address] T PROT 6.5 g/dL Normal 6.4-8.2 [facility] Comment on above: Order Comment: DR DELIA YADAV AND DR TILLEY ORDERD BMPDR ROOF ORDERD A LIVER AND LIPIDDR TREVA ORDERD A SPOT URIN Performed By: #### L 100.0100, L501.4021, L500.2500 #### [facility] [address] [place], [address] ALB Normal 3.2-5.0 [facility] Comment on above: Result Comment: NOT NEEDED' Performed By: #### L 100.0100, L501.4021, L500.2500 #### [facility] [address] [place], [address] ALK P Normal 45-117 [facility] Comment on above: Result Comment: NOT NEEDED' Performed By: #### L 100.0100, L501.4021, L500.2500 #### [facility] [address] [place], [address] ALT Normal 16-61 [facility] Comment on above: Result Comment: NOT NEEDED' Performed By: #### L 100.0100, L501.4021, L500.2500 #### [facility] [address] [place], [address] AST Normal 15-37 [facility] Comment on above: Result Comment: NOT NEEDED' Performed By: #### L 100.0100, L501.4021, L500.2500 #### [facility] [address] [place], [address] D BILI Normal 0.00-0.30 [facility] Comment on above: Result Comment: NOT NEEDED' Performed By: #### L 100.0100, L501.4021, L500.2500 #### [facility] [address] [place], [address] T BILI Normal 0.20-1.00 [facility] Comment on above: Result Comment: NOT NEEDED' Performed By: #### L 100.0100, L501.4021, L500.2500 #### [facility] [address] [place], [address] T PROT Normal 6.4-8.2 [facility] Comment on above: Result Comment: NOT NEEDED' Performed By: #### L 100.0100, L501.4021, L500.2500 #### [facility] [address] [place], [address] Low density lipoprotein (LDL ) cholesterol measurementOrdered By: Gennaro Fuentes on 03-10-2024 Cholesterol in LDL [Mass/Vol] 113 mg/dL 0-130 [facility] Potassium measurementOrdered By: Gennaro Fuentes on 03-10-2024 Potassium [Moles/Vol] 4.4 mmol/L 3.5-5.1 [facility] Protein+Creatinine Ratio,Uri neon 03-10-2024 PROT:CRE RATIO 3472 mg/g CRE High 0-200 [facility] Comment on above: Performed By: #### L 100.0100, L501.4021, L500.2500 #### [facility] [address] [place], [address] Protein (U) [Mass/Vol] 224.3 mg/dL High <11.9 [facility] Comment on above: Performed By: #### L 100.0100, L501.4021, L500.2500 #### [facility] [address] [place], [address] UR CREAT 64.60 mg/dL Normal NO RANGE EST. [facility] Comment on above: Performed By: #### L 100.0100, L501.4021, L500.2500 #### [facility] [address] [place], [address] Protein/Creatinine (U) [Mass ratio]Ordered By: Gennaro Fuentes on 03-10-2024 Urine Protein/Creatinine Ratio 3472 mg/g CRE High 0-200 [facility] Random urine protein measure mentOrdered By: Gennaro Fuentes on 03-10-2024 Protein (U) [Mass/Vol] 224.3 mg/dL High 0.0-11.8 [facility] Serum anion gap measurementO rdered By: Gennaro Fuentes on 03-10-2024 Anion gap [Moles/Vol] 3 mmol/L Low 5-15 [facility] Serum globulin measurementOr dered By: Gennaro Fuentes on 03-10-2024 Globulin (S) [Mass/Vol] 3.7 g/dL 2.2-4.2 [facility] Serum or plasma alanine bradford otransferase (ALT) measurementOrdered By: Gennaro Fuentes on 03-10-2024 ALT [Catalytic activity/Vol] 24 U/L 16-61 [facility] Serum or plasma albumin tiera urement (mass/volume)Ordered By: Gennaro Fuentes on 03-10-2024 Albumin [Mass/Vol] 2.8 g/dL Low 3.2-5.0 [facility] Serum or plasma alkaline lashell sphatase measurementOrdered By: Gennaro Fuentes on 03-10-2024 ALP [Catalytic activity/Vol] 203 U/L High 45-117 [facility] Serum or plasma calcium tiera urement (mass/volume)Ordered By: Gennaro Fuentes on 03-10-2024 Calcium [Mass/Vol] 8.1 mg/dL Low 8.5-10.1 [facility] Serum or plasma cholesterol measurement (mass/volume)Ordered By: Gennaro Fuentes on 03-10-2024 Cholesterol [Mass/Vol] 202 mg/dL High <200 [facility] Comment on above: <200 mg/dL Desirable 200-240 mg/dL Borderline >240 mg/dL High Risk Serum or plasma creatinine m easurement (mass/volume)Ordered By: Gennaro Fuentes on 03-10-2024 Creatinine [Mass/Vol] 2.23 mg/dL High 0.70-1.30 [facility] Comment on above: The validity of the calculated GFR & GFRAA in patients over 70 years has not been determined. Clinical correlation is essential. Serum or plasma urea nitroge n measurement (mass/volume)Ordered By: Gennaro Fuentes on 03-10-2024 Urea nitrogen [Mass/Vol] 28 mg/dL High 7-18 [facility] Sodium levelOrdered By: Amparo Fuentes on 03-10-2024 Sodium [Moles/Vol] 137 mmol/L 136-145 [facility] Total proteinOrdered By: Sean Fuentes on 03-10-2024 Protein [Mass/Vol] 6.5 g/dL 6.4-8.2 [facility] Triglycerides measurementOrd ered By: Gennaro Fuentes on 03-10-2024 Triglyceride [Mass/Vol] 99 mg/dL <199 [facility] Comment on above: The drugs N-Acetylcy steine and Metamizole may falsely depress this assay.Serum Triglycerides Reference Interval Normal <150 mg/dL Borderline high 150 - 199 mg/dL High 200 - 499 mg/dL Very High > or = 500 mg/dL Urine creatinine measurement (mass/volume)Ordered By: Gennaro Fuentes on 03-10-2024 Creatinine (U) [Mass/Vol] 64.60 mg/dL NO RANGE EST. [facility] Very low density lipoprotein (VLDL) cholesterol measurementOrdered By: Gennaro Fuentes on 03-10-2024 VLDL Cholesterol 20 mg/dL 5-40 [facility] Chest without Contraston Chest without Contrast [facility] Imaging [place] [address] Chest without Contrast MR#: [id number] Acct: [id number] Name: OLIVIER MENDOZA Rep #: [id number] : 1960 M 63 From: Timi Nicole MD PCP: Dr. Sherice Avendano MD Status: REG CLI Study: Chest without Contrast Date of Exam: 02/24/24 Exam# [id number] Ordering Dr: Sherice Avendano MD -[id number] INDICATION: Abnormal Chest X-ray EXAMINATION: CT CHEST WITHOUT CONTRAST - CT Chest W/O Contrast Injection TECHNIQUE: Helically acquired images were obtained of the chest. A radiation dose optimization technique was used for this scan. IV Contrast dosage and agent: None. COMPARISON: 11/07/2020, chest x-ray 01/09/2024 FINDINGS: LUNGS, PLEURA AND LARGE AIRWAYS: No masses, consolidation, or edema. No pleural effusion or thickening. No pneumothorax. THYROID: No thyroid lesions. HEART AND PERICARDIUM: Heart size is normal. No pericardial effusion. CORONARY ARTERIES: Coronary artery calcification is seen. VESSELS: Thoracic aorta is not dilated. MEDIASTINUM AND OLIVER: No mediastinal or hilar adenopathy. Esophagus is unremarkable. No hiatal hernia. UPPER ABDOMEN: No acute pathology. BONES: No suspicious lytic or blastic abnormality. CT/Chest without Contrast IMPRESSION: Negative CT chest without contrast. Electronically Signed: Timi Nicole MD at 14:07 EST , CC: Dr. Sherice Avendano MD Aerospace Project Engineer: Signed Normal [facility] Echo Completeon 02-24-2024 Echo Complete [facility] [place] [address] Echo Complete 02/24/24 0845 MR#: [id number] Acct: [id number] Name: OLIVIER MENDOZA Rep #: [id number] : 1960 63 From: Pop Castellanos MD Attending Dr: Gennaro Fuentes CAN TENDER-C Status: JULIETTE PEDRO Ordering Dr: Chacorta Porter NP CAN TENDER-C Date: 02/24/24 Location: [place] Sex: M C Admitted: Reason For Study: CHEST PAIN Procedure This was a 2D Doppler, Color Flow transthoracic echocardiogram. Exam performed in department. Left Ventricle Normal LV size. Mild concentric left ventricular hypertrophy. Left ventricular systolic function is normal. The left ventricular ejection fraction is 65 %. No regional wall motion abnormalities noted. Right Ventricle Normal RV size. Normal systolic function. Atria Normal left atrium. Mitral Valve Normal mitral valve. Tricuspid Valve Normal tricuspid valve. Aortic Valve Trisinus/trileaflet aortic valve. Pulmonic Valve The pulmonic valve is not well visualized. Great Vessels Normal aortic root. The pulmonary artery is normal size. Inferior vena cava collapse with respiration. Pericardium/Pleural No pericardial effusion. MMode/2D Measurements Calculations LVIDd: 5.0 cm IVSd: 1.3 cm LVOT diam: 2.0 cm LVIDs: 3.7 cm LVPWd: 1.2 cm LVOT area: 3.1 cm2 RVDd: 4.0 cm FS: 26.5 % asc Aorta Diam: 2.9 cm LAV(MOD-bp): 58.6 ml LVAd ap4: 25.6 cm2 LAV(MOD-bp) Indexed: 30.7 ml/m2 LVLd ap4: 7.9 cm LAV(MOD-sp2): 52.6 ml EDV(MOD-sp4): 68.4 ml LAV(MOD-sp4): 58.7 ml EDV(sp4-el): 70.4 ml LVAs ap4: 13.7 cm2 LVLs ap4: 6.8 cm ESV(MOD-sp4): 23.7 ml ESV(sp4-el): 23.7 ml EF(MOD-sp4): 65.3 % EF(sp4-el): 66.4 % LVAd ap2: 27.3 cm2 SV(MOD-sp4): 44.6 ml SV(MOD-sp2): 46.6 ml LVLd ap2: 7.9 cm SI(MOD-sp4): 23.4 ml/m2 SI(MOD-sp2): 24.4 ml/m2 EDV(MOD-sp2): 79.6 ml EDV(sp2-el): 79.9 ml LVAs ap2: 15.8 cm2 LVLs ap2: 6.9 cm ESV(MOD-sp2): 33.0 ml ESV(sp2-el): 30.5 ml EF(MOD-sp2): 58.6 % SV(sp4-el): 46.7 ml Ao sinus diam: 2.[address] Junction: 2.1 cm LA dimension(2D): 4.2 cm LA A4 area: 20.6 cm2 RA A4 area: 13.7 cm2 TAPSE: 2.0 cm Time Measurements MV dec time: 0.13 sec Doppler Measurements Calculations MV E max roxana: 102.5 cm/sec Lat Peak E' Roxana: 10.8 cm/sec Med Peak E' Roxana: 7.4 cm/sec MV A max roxana: 85.5 cm/sec E/E' lat: 9.5 E/E' med: 13.8 MV E/A: 1.2 MV dec slope: 778.2 cm/sec2 Ao V2 max: 165.7 cm/sec LV V1 max: 115.4 cm/sec Ao max P.0 mmHg LV V1 max P.3 mmHg Ao V2 mean: 123.4 cm/sec LV V1 mean P.5 mmHg Ao mean P.4 mmHg LV V1 mean: 92.1 cm/sec Ao V2 VTI: 35.2 cm LV V1 VTI: 28.1 cm AV (velocity ratio): 0.80 TROY(I,D): 2.4 cm2 TROY(V,D): 2.1 cm2 SV(LVOT): 86.2 ml PA V2 max: 110.6 cm/sec ECHO/Echo Complete Interpretation Summary Normal LV size. Left ventricular systolic function is normal. The left ventricular ejection fraction is 65 %. Mild concentric left ventricular hypertrophy. __ Ordering Physician: Chacorta Porter Referring Physician: Sherice Avendano Performed By: Natasha Pratt RDCS 02/24/24 1010 Date Pop Castellanos MD CC: THERESAC Chacorta Porter; YORDAN-C Gennaro Fuentes; Dr. Sherice Avendano MD Date Dictated: 02/24/24 0845 Date Transcribed: 02/24/24 1010 Aerospace Project Engineer: Signed Normal [facility] Renal Artery Duplex Ultrasou ndon 02-24-2024 Renal Artery Duplex Ultrasound [facility] [address] [address] Renal Artery Duplex Ultrasound 02/24/2414 MR#: [id number] Acct: [id number] Name: OLIVIER MENDOZA Rep #: [id number] : 1960 63 From: Nicholas Teixeira MD Attending Dr: SHAUN Oliveira Status: JULIETTE PEDRO Ordering Dr: Gennaro Fuentes NP CAN TENDERKarelC Date: 02/24/24 Location: CT Sex: M C Admitted: Reason For Study: HTN Right Renal Artery Left Renal Artery Right renal artery ostium 92.4/16.8 Left renal artery ostium 127.2/36.5 RSV/EDV. PSV/EDV. Right renal artery proximal Left renal artery proximal PSV/EDV 164.6/28.6 PSV/EDV. 112.3/22.7 . Right renal artery mid 144.3/28.6 Left renal artery mid 120.0/34.9 PSV/EDV. PSV/EDV . Right renal artery distal 88.5/16.7 Left renal artery distal 151.7/33.1 PSV/EDV. PSV/EDV. Right RAR 2.34. Left RAR 2.67. Right Renal Parenchyma LRA appears tortuous. Upper Pole Medula 44.3/6.7 PSV/EDV. Left Renal Parenchyma Right upper pole medulla EDR 0.20 . Left upper pole medulla 33.1/9.0 Right upper pole medulla R.I. PSV/EDV . 0.85 . Left upper pole medulla EDR 0.30 . Upper [place]yer Cortx 30.1/8.0 PSV/EDV. Left upper pole medulla R.I. 0.73 . Right upper pole cortex EDR 0.30 . UP Cortex 15.6/3.5 PSV/EDV. Right upper pole cortex R.I. 0.73 . Left upper pole cortex EDR 0.20 . Right lower Pole medulla 41.7/9.3 Left upper pole cortex R.I. 0.77 . PSV/EDV . Left lower Pole medulla 34.2/12.3 Right lower pole medulla EDR 0.20 . PSV/EDV . Right lower pole medulla R.I. Left lower pole medulla EDR 0.40 . 0.78 . Left lower pole medulla R.I. 0.64 . Lower Pole Cortex 17.5/6.6 PSV/EDV. Lower Pole Cortx 17.1/6.2 PSV/EDV. Right lower pole cortex EDR 0.40 . Left lower pole cortex EDR 0.40 . Right lower pole cortex R.I. 0.62 . Left lower pole cortex R.I. 0.64 . Right Renal Hilar Left Renal Hilar Right Hilar avg 116.5/17.3 PSV/EDV. LT Hilar avg 187.3/22.3 PSV/EDV . Right hilar acceleration time 20 Left hilar acceleration time 30 m/sec. m/sec. Right Renal Dimensions Left Renal Dimensions Right kidney size 11.42 cm . Left kidney size 11.50 cm . Right cortical dimension 1.94 cm . Left cortical dimension 1.59 cm . Anechoic non vascularized area noted within Lt kidney measuring approximately 1.89cm x 1.63cm. Aorta Proximal abdominal aorta 1.81 x 1.57 cm . Distal abdominal aorta 1.19 x 1.32 cm . Proximal abdominal aorta peak systolic velocity is 70.2 cm/sec . Distal abdominal aorta peak systolic velocity is 129.3 cm/sec . Procedures Renal Artery Duplex with B-mode, pulsed wave and color doppler. Limited views obtained due to bowel gas. VL/Renal Artery Duplex Ultrasound Interpretation Summary Right renal artery patent with normal velocities and no evidence of stenosis. Left renal artery patent with normal velocities and no evidence of stenosis. Right renal vein patent. Left renal vein patent. Right kidney normal in size. Left kidney normal in size. Anechoic non vascularized area noted within left kidney measuring approximately 1.89cm x 1.63cm. __ Ordering Physician: Sherice Avendano Referring Physician: Gennaro Fuentes Performed By: Rashel Chandler, Preston 02/24/241642 Date Nicholas Teixeira MD CC: CAN TENDER-C Gennaro Fuentes; Dr. Sherice Avendano MD Date Dictated: 02/24/24813 Date Transcribed: 02/24/241642 Aerospace Project Engineer: Iris Senior [facility] 36on 02-12-2024 36 Patient called and LM to cancel his appt for today (02/12/24) and to reschedule to March if possible. Reached out to pt, call goes straight byron . LMTCO to reschedule. Normal [facility] Cardiology Visit Reporton Cardiology Visit Report [facility] [address] [place] [address] OFFICE VISIT Date of Service: 01/16/24 MR#: [id number] Acct: [id number] Name: OLIVIER MENDOZA Rep #: [id number] : 1960 Provider: SHAUN hinojosa Age/Sex: 63/M Location: [facility] Status: Signed HPI HPI History of Present Illness Details: This is a 63-year-old gentleman who presents here today for a cardiovascular follow-up visit. He has a history of hypertension, hyperlipidemia, carotid artery disease, obstructive sleep apnea, and diabetes. In February of 2020, he presented to the emergency room with chest pain with negative troponins. He had an abnormal EKG with changes concerning ischemia, and a stress test that was negative for ischemia. He underwent a cardiac catheterization 05/2020, which demonstrated diffuse coronary artery disease with small vessels noted in the entire coronary vasculature. From a cardiac standpoint, the patient is doing well. He denies any palpitations. He does have occasional chest pain-this is located left chest. He describes this as a chest tightness. He states he feels like this is a muscle. He does acknowledge occasional SOB. He denies Orthopnea, and PND. He does not have bleeding issues; no blood in urine, stool or nosebleeds. He denies any decrease in energy level, myalgias, or claudication. He does acknowledge bilateral lower extremity edema. He denies sudden weight gain. He denies dizziness, lightheadedness, syncopal or near syncopal episodes, and headaches. 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 Is patient in pain?: No Allergies latex Allergy (Unknown, Verified 01/16/24 14:21) Unknown Wsvwydp-LWA-ApC Reductase Inhibitor (Zawzjzc-Lsq-Nmj Reductase Inhibitor) Adverse Reaction (Severe, Verified 01/16/24 14:21) muscle pain Medications ???Medication ???Instructions ???Recorded ???Confirmed ???Type insulin lispro 100 unit/mL See Rx Instructions subcut TID 12/04/19 01/16/24 History subcutaneous pen (Humalog KwikPen e10.9 (U-100) Insulin) cholecalciferol (vitamin D3) 50 50 mcg PO DAILY 03/11/20 01/16/24 History mcg (2,000 unit) capsule blood sugar diagnostic #360 ea 01/25/21 01/16/24 Rx blood-glucose meter (OneTouch #1 ea 01/25/21 01/16/24 Rx Ultra2 Meter kit) insulin needles (disposable) 30 X ##1 01/25/21 01/16/24 History 3/4 insulin syr/ndl U100 half gilmar 0.3 #100 ea 01/25/21 01/16/24 Rx mL 31 gauge x 1/4 pen needle, diabetic 31 gauge x #100 ea 01/25/21 01/16/24 Rx 3/16 (BD Ultra-Fine Mini Pen Needle) handicap placard See Rx Instructions .Route 05/25/21 01/16/24 Rx .COMPLEX #1 unit insulin glargine 100 unit/mL (3 25 unit subcut DAILY e10.9 01/01/22 01/16/24 History mL) subcutaneous pen (Lantus Solostar U-100 Insulin) tadalafil 5 mg tablet 10 mg PO DAILY 08/27/22 01/16/24 History albuterol sulfate 90 mcg/actuation 2 puff inhalation Q4-6H PRN 04/24/23 01/16/24 Rx aerosol inhaler shortness of breath or wheezing #6.7 grams evolocumab 140 mg/mL subcutaneous 140 mg subcut Q2W #2 mL 06/06/23 01/16/24 Rx pen injector (Andres Titus) amlodipine 5 mg tablet 5 mg PO DAILY #90 tabs 11/13/23 01/16/24 Rx metoprolol tartrate 25 mg tablet 12.5 mg (1/2 x 25 mg) PO BID #90 10/14/24 11/14/24 Rx tabs doxazosin 1 mg tablet 1 mg PO QHS #90 TABLETS 12/18/23 01/16/24 Rx fluticasone propionate 50 1 spray intranasal DAILY PRN nasal 12/20/23 01/16/24 Rx mcg/actuation nasal congestion #16 grams spray,suspension losartan 100 mg tablet 100 mg PO DAILY #30 tabs 12/30/23 01/16/24 Rx compress.barbara caballero,reg,lrg #2 ea 01/09/24 01/16/24 Rx levothyroxine 150 mcg tablet 150 mcg PO DAILY #90 tabs 01/09/24 01/16/24 Rx furosemide 40 mg tablet 40 mg PO QAM #30 tabs 01/14/24 01/16/24 Rx hydralazine 25 mg tablet 25 mg PO BID #60 tabs 01/16/24 01/16/24 Rx Have you fallen in the past year?: No PFSH Medical History Hilar density Abnormal chest xray Preop cardiovascular exam CKD (chronic kidney disease), stage III GERD (gastroesophageal reflux disease) Chest congestion Preoperative evaluation to rule out surgical contraindication Sinusitis Skin cyst Fatigue Left elbow pain Health care maintenance Proteinuria Nephropathy Bilateral lower extremity edema COVID-19 vaccine series completed Atherosclerotic heart disease of [place] coronary artery without angina pectoris Mixed hyperlipidemia Neuropathy due to type (more content not included)... Normal [facility] 12 Lead EKGon 01-09-2024 12 Lead EKG [facility] Cardiovascular Services [address] [place] [address] 12 Lead EKG 01/09/24 1932 MR#: [id number] Acct: [id number] Name: OLIVIER MENDOZA Rep #: [id number] : 1960 63 From: Pop Castellanos MD Attending Dr: Status: DEP ER Ordering Dr: Denzel Carlin DO Date: 01/09/24 Location: ED Sex: M C Admitted: Test Reason : CP Blood Pressure : */* mmHG Vent. Rate : 95 BPM Atrial Rate : 95 BPM P-R Int : 178 ms QRS Dur : 84 ms QT Int : 360 ms P-R-T Axes : 66 30 40 degrees QTcB Int : 452 ms Sinus rhythm with frequent Premature ventricular complexes Nonspecific ST and T wave abnormality Abnormal ECG Confirmed by EMANUEL WERNER, POP ([id number]), features editor RIAN SOLORIO ([id number]) on 01/13/2024 10:12:46 AM Referred By: Denzel Carlin Confirmed By: POP CASTELLANOS MD 01/13/24 1012 Date Pop Castellanos MD CC: Dr. Sherice Avendano MD; Dr. Denzel Carlin, DO Signed Normal [facility] BNP,B-Type NATRIURETIC PEPTI [place] 01-09-2024 Natriuretic peptide B (Bld) [Mass/Vol] 472.9 pg/mL High 0-100 [facility] Comment on above: Performed By: #### L 501.5425, L500.2500, L100.0100, L503.6620 #### [facility] [address] [place], [address] Basic Metabolic Profile (BMP )on 01-09-2024 BUN/CRE 12.3 RATIO Normal 10-20 [facility] Comment on above: Order Comment: 1 Y Performed By: #### L 501.5425, L500.2500, L100.0100, L503.6620 #### [facility] [address] [place], [address] CA,Total 8.3 mg/dL Low 8.5-10.1 [facility] Comment on above: Order Comment: 1 Y Performed By: #### L 501.5425, L500.2500, L100.0100, L503.6620 #### [facility] [address] [place], [address] Chloride [Moles/Vol] 106 mmol/L Normal 98-107 [facility] Comment on above: Order Comment: 1 Y Performed By: #### L 501.5425, L500.2500, L100.0100, L503.6620 #### [facility] [address] [place], [address] CO2 [Moles/Vol] 23.0 mmol/L Normal 21.0-32.0 [facility] Comment on above: Order Comment: 1 Y Performed By: #### L 501.5425, L500.2500, L100.0100, L503.6620 #### [facility] [address] [place], [address] Creatinine [Mass/Vol] 1.87 mg/dL High 0.70-1.30 [facility] Comment on above: Order Comment: 1 Y Result Comment: The validity of the calculated GFR GFRAA in patients over 70 years has not been determined. Clinical correlation is essential. Performed By: #### L 501.5425, L500.2500, L100.0100, L503.6620 #### [facility] [address] [place], [address] ECRCL 40.01 ml/min Normal [facility] Comment on above: Order Comment: 1 Y Performed By: #### L 501.5425, L500.2500, L100.0100, L503.6620 #### [facility] [address] [place], [address] EST GFR - AA 47 mL/min Low >60 [facility] Comment on above: Order Comment: 1 Y Result Comment: Afri can [place] GFR Calc Performed By: #### L 501.5425, L500.2500, L100.0100, L503.6620 #### [facility] [address] [place], [address] GAP 7 Normal 5-15 [facility] Comment on above: Order Comment: 1 Y Performed By: #### L 501.5425, L500.2500, L100.0100, L503.6620 #### [facility] [address] [place], [address] GFR/1.73 sq M.predicted among non-blacks MDRD (S/P/Bld) [Vol rate/Area] 39 mL/min/{1.73_m2} Low >60 [facility] Comment on above: Order Comment: 1 Y Result Comment: Non- GFR Calc Performed By: #### L 501.5425, L500.2500, L100.0100, L503.6620 #### [facility] [address] [place], [address] Glucose [Mass/Vol] 319 mg/dL High 74-106 [facility] Comment on above: Order Comment: 1 Y Result Comment: Gluc ose result greater than or equal to 200 mg/dL suggests DIABETES MELLITUS per A.D.A. criteria. Performed By: #### L 501.5425, L500.2500, L100.0100, L503.6620 #### [facility] [address] [place], [address] Potassium [Moles/Vol] 4.8 mmol/L Normal 3.5-5.1 [facility] Comment on above: Order Comment: 1 Y Performed By: #### L 501.5425, L500.2500, L100.0100, L503.6620 #### [facility] [address] [place], [address] Sodium [Moles/Vol] 135 mmol/L Low 136-145 [facility] Comment on above: Order Comment: 1 Y Performed By: #### L 501.5425, L500.2500, L100.0100, L503.6620 #### [facility] [address] [place], [address] Urea nitrogen [Mass/Vol] 23 mg/dL High 7-18 [facility] Comment on above: Order Comment: 1 Y Performed By: #### L 501.5425, L500.2500, L100.0100, L503.6620 #### [facility] [address] [place], [address] BUN/CRE 12.5 RATIO Normal 10-20 [facility] Comment on above: Performed By: #### L 100.0100, L501.4021, L500.2500 #### [facility] [address] [place], [address] CA,Total 8.2 mg/dL Low 8.5-10.1 [facility] Comment on above: Performed By: #### L 100.0100, L501.4021, L500.2500 #### [facility] [address] [place], [address] Chloride [Moles/Vol] 106 mmol/L Normal 98-107 [facility] / [facility] Comment on above: Performed By: #### L 100.0100, L501.4021, L500.2500 #### [facility] [address] [place], [address] CO2 [Moles/Vol] 26.0 mmol/L Normal 21.0-32.0 [facility] Comment on above: Performed By: #### L 100.0100, L501.4021, L500.2500 #### [facility] [address] [place], [address] Creatinine [Mass/Vol] 2.00 mg/dL High 0.70-1.30 [facility] Comment on above: Result Comment: The validity of the calculated GFR GFRAA in patients over 70 years has not been determined. Clinical correlation is essential. Performed By: #### L 100.0100, L501.4021, L500.2500 #### [facility] [address] [place], [address] EST GFR - AA 43 mL/min Low >60 [facility] Comment on above: Result Comment: Afri can [place] GFR Calc Performed By: #### L 100.0100, L501.4021, L500.2500 #### [facility] [address] [place], [address] GAP 3 Low 5-15 [facility] Comment on above: Performed By: #### L 100.0100, L501.4021, L500.2500 #### [facility] [address] [place], [address] GFR/1.73 sq M.predicted among non-blacks MDRD (S/P/Bld) [Vol rate/Area] 36 mL/min/{1.73_m2} Low >60 [facility] Comment on above: Result Comment: Non- GFR Calc Performed By: #### L 100.0100, L501.4021, L500.2500 #### [facility] [address] [place], [address] Glucose [Mass/Vol] 339 mg/dL High 74-106 [facility] Comment on above: Result Comment: Gluc ose result greater than or equal to 200 mg/dL suggests DIABETES MELLITUS per A.D.A. criteria. Performed By: #### L 100.0100, L501.4021, L500.2500 #### [facility] [address] [place], [address] Potassium [Moles/Vol] 6.2 mmol/L Invalid Interpretation Code 3.5-5.1 [facility] Comment on above: Result Comment: Crit ical Result(s) Called at: 17:09:39 01/09/2024 by: MAGUI WAITE TO DR. AVENDANO. Results read back by same. Performed By: #### L 100.0100, L501.4021, L500.2500 #### [facility] [address] [place], [address] Sodium [Moles/Vol] 134 mmol/L Low 136-145 [facility] Comment on above: Performed By: #### L 100.0100, L501.4021, L500.2500 #### [facility] [address] [place], [address] Urea nitrogen [Mass/Vol] 25 mg/dL High 7-18 [facility] Comment on above: Performed By: #### L 100.0100, L501.4021, L500.2500 #### [facility] [address] [place], [address] CBC W/Diff, Automatedon 11-0 7-2023 Absolute Lymph 1.65 X10 3/uL Normal 0.83-4.51 [facility] Comment on above: Performed By: #### L 501.5425, L500.2500, L100.0100, L503.6620 #### [facility] [address] [place], [address] Absolute Neut 5.7 X10 3/uL Normal 2.0-7.7 [facility] Comment on above: Performed By: #### L 501.5425, L500.2500, L100.0100, L503.6620 #### [facility] [address] [place], [address] Basophils/100 WBC (Bld) 0.4 % Normal 0-1 [facility] Comment on above: Performed By: #### L 501.5425, L500.2500, L100.0100, L503.6620 #### [facility] [address] [place], [address] Eosinophils/100 WBC (Bld) 3.7 % Normal 0-5 [facility] Comment on above: Performed By: #### L 501.5425, L500.2500, L100.0100, L503.6620 #### [facility] [address] [place], [address] Erythrocyte distribution width (RBC) [Ratio] 14.3 % Normal 11.6-14.6 [facility] Comment on above: Performed By: #### L 501.5425, L500.2500, L100.0100, L503.6620 #### [facility] [address] [place], [address] Hematocrit (Bld) [Volume fraction] 33.3 % Low 40-54 [facility] Comment on above: Performed By: #### L 501.5425, L500.2500, L100.0100, L503.6620 #### [facility] [address] [place], [address] Hemoglobin (Bld) [Mass/Vol] 11.0 g/dL Low 13.0-16.5 [facility] Comment on above: Performed By: #### L 501.5425, L500.2500, L100.0100, L503.6620 #### [facility] [address] [place], [address] IG% 0.500 Normal 0.0-0.9 [facility] Comment on above: Result Comment: IG% - Immature Granulocytes (promyelocytes, myelocytes and metamyelocytes) > 1% indicates that a LEFT SHIFT is Present. Performed By: #### L 501.5425, L500.2500, L100.0100, L503.6620 #### [facility] [address] [place], [address] Lymphocytes/100 WBC (Bld) 19.6 % Normal 19-41 [facility] Comment on above: Performed By: #### L 501.5425, L500.2500, L100.0100, L503.6620 #### [facility] [address] [place], [address] MCH (RBC) [Entitic mass] 30.1 pg Normal 27.0-32.0 [facility] Comment on above: Performed By: #### L 501.5425, L500.2500, L100.0100, L503.6620 #### [facility] [address] [place], [address] MCHC (RBC) [Mass/Vol] 33.0 g/dL Normal 32-36 [facility] Comment on above: Performed By: #### L 501.5425, L500.2500, L100.0100, L503.6620 #### [facility] [address] [place], [address] MCV (RBC) [Entitic vol] 91.2 fL Normal 80-94 [facility] Comment on above: Performed By: #### L 501.5425, L500.2500, L100.0100, L503.6620 #### [facility] [address] [place], [address] Monocytes/100 WBC (Bld) 8.6 % Normal 0-10 [facility] Comment on above: Performed By: #### L 501.5425, L500.2500, L100.0100, L503.6620 #### [facility] [address] [place], [address] Neutrophils/100 WBC (Bld) 67.2 % Normal 47-70 [facility] Comment on above: Performed By: #### L 501.5425, L500.2500, L100.0100, L503.6620 #### [facility] [address] [place], [address] Nucleated RBC (Bld) [#/Vol] 0 10*3/uL Normal 0-5 [facility] Comment on above: Performed By: #### L 501.5425, L500.2500, L100.0100, L503.6620 #### [facility] [address] [place], [address] Platelet mean volume (Bld) [Entitic vol] 9.0 fL Normal 6.2-12.0 [facility] Comment on above: Performed By: #### L 501.5425, L500.2500, L100.0100, L503.6620 #### [facility] [address] [place], [address] Platelets (Bld) [#/Vol] 377 10*3/uL Normal 150-450 [facility] Comment on above: Performed By: #### L 501.5425, L500.2500, L100.0100, L503.6620 #### [facility] [address] [place], [address] RBC (Bld) [#/Vol] 3.65 10*6/uL Low 4.6-6.2 [facility] Comment on above: Performed By: #### L 501.5425, L500.2500, L100.0100, L503.6620 #### [facility] [address] [place], [address] RDW SD 47.7 fl High 35.1-43.9 [facility] Comment on above: Performed By: #### L 501.5425, L500.2500, L100.0100, L503.6620 #### [facility] [address] [place], [address] WBC (Bld) [#/Vol] 8.4 10*3/uL Normal 4.4-11.0 [facility] Comment on above: Performed By: #### L 501.5425, L500.2500, L100.0100, L503.6620 #### [facility] [address] [place], [address] Chest PA and Lateralon 01-08 Chest PA and Lateral [facility] Imaging Services [address] [place] [address] Chest PA and Lateral MR#: [id number] Acct: [id number] Name: OLIVIER MENDOZA Rep #: [id number] : 1960 M 63 From: Timi Chester PCP: Dr. Sherice Avendano MD Status: REG ER Study: Chest PA and Lateral Date of Exam: 01/09/24 Exam# [id number] Ordering Dr: Denzel Carlin DO -[id number] INDICATION: chest pain EXAMINATION/TECHNIQ UE: X-RAY - XR Chest 2 Views COMPARISON: 05/09/2023 FINDINGS: LIFE-SUPPORT AND LINES: 1. None HEART AND VESSELS: The cardiac silhouette, pulmonary vasculature have normal appearance. No evidence of congestive failure. LUNGS AND PLEURAL SPACES: Diffuse interstitial prominence perihilar and infrahilar regions bilaterally greater on the RIGHT than LEFT. No airspace consolidation. No pulmonary mass is noted. MEDIASTINUM AND HILAR REGIONS: No masses adenopathy noted. No areas of calcification. Visualized upper airway is normal in position. BONY ELEMENTS: No acute bony changes noted. RAD/Chest PA and Lateral IMPRESSION: 1. Perihilar interstitial prominence/atypical infiltrate greater on the RIGHT than LEFT. No lobar consolidation, no effusion. 2. No evidence of congestive failure. Electronically Signed: Timi Sauceda MD at 20:47 EST , CC: Dr. Sherice Avendano MD; Dr. 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 Sherice Avendano MD Status:REG ER Location: ED HPI History of Present Illness Chief Complaint: Chest Pain Narrative Narrative: Patient is a 63-year-old male past medical history prior kidney stage III chronic kidney disease stage III, type 1 diabetes, hypothyroidism, BPH, [place] who presented to the emerged part with chief complaint of abnormal blood work obtained in outpatient setting. Patient states that he had blood work obtained and noted that his potassium level was elevated he was advised to come here to the emergency department for further evaluation and management. Patient did state that he had some chest discomfort on the left side states that he has been chopping firewood and working a lot recently and states that he is just sore from this. Patient denies any other complaints at this point time. Patient states he has been taking his medications as prescribed. 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 Diabetic foot ulcer associated with diabetes mellitus due to underlying condition Decubitus ulcer of foot, stage 2 Carotid artery stenosis Bradycardia Granuloma annulare Hypothyroidism BPH (benign prostatic hyperplasia) Abdominal pain Sleep apnea Hearing problem Back problem High calcium levels Type 1 diabetes mellitus Meniere's disease Acquired plantar keratoderma Essential hypertension Home Medications ???Medication ???Instructions ???Recorded ???Last Taken ???Type insulin lispro 100 unit/mL See Rx Instructions subcut TID 12/04/19 Unknown History subcutaneous pen (Humalog KwikPen e10.9 (U-100) Insulin) omega-3 fatty acids 1,000 mg 1,000 mg PO DAILY 12/04/19 Unknown History capsule (Fish Oil Concentrate) cholecalciferol (vitamin D3) 50 50 mcg PO DAILY 03/11/20 05/09/20 History mcg (2,000 unit) capsule blood sugar diagnostic #360 ea 01/25/21 Unknown Rx blood-glucose meter (OneTouch #1 ea 01/25/21 Unknown Rx Ultra2 Meter kit) insulin needles (disposable) 30 X ##1 01/25/21 Unknown History 3/4 insulin syr/ndl U100 half gilmar 0.3 #100 ea 01/25/21 Unknown Rx mL 31 gauge x 1/4 pen needle, diabetic 31 gauge x #100 ea 01/25/21 Unknown Rx 3/16 (BD Ultra-Fine Mini Pen Needle) handicap placard See Rx Instructions .Route 05/25/21 Unknown Rx .COMPLEX #1 unit insulin glargine 100 unit/mL (3 25 unit subcut DAILY e10.9 01/01/22 Unknown History mL) subcutaneous pen (Lantus Solostar U-100 Insulin) tadalafil 5 mg tablet 10 mg PO DAILY 08/27/22 Unknown History albuterol sulfate 90 mcg/actuation 2 puff inhalation Q4-6H PRN 04/24/23 Unknown Rx aerosol inhaler shortness of breath or wheezing #6.7 grams oxybutynin chloride 10 mg 10 mg PO DAILY 05/22/23 Unknown History tablet,extended release 24 hr evolocumab 140 mg/mL subcutaneous 140 mg subcut Q2W #2 mL 06/06/23 Unknown Rx pen injector (Repninoska Lópezick) amlodipine 5 mg tablet 5 mg PO DAILY #90 tabs 11/13/23 Unknown Rx metoprolol tartrate 25 mg tablet 12.5 mg (1/2 x 25 mg) PO BID #90 12/16/23 Unknown Rx tabs doxazosin 1 mg tablet 1 mg PO QHS #90 TABLETS 12/18/23 Unknown Rx fluticasone propionate 50 1 spray intranasal DAILY PRN nasal 12/20/23 Unknown Rx mcg/actuation nasal congestion #16 grams spray,suspension hydrochlorothiazide 25 mg tablet 25 mg PO DAILY #90 tabs 12/25/23 Unknown Rx losartan 100 mg tablet 100 mg PO DAILY #30 tabs 12/30/23 Unknown Rx compress.barbara caballero,reg,lrg #2 ea 01/09/24 Unknown Rx levothyroxine 150 mcg tablet 150 mcg PO DAILY #90 tabs 01/09/24 Unknown Rx Allergy/AdvReac Type Severity Reaction Status Date / Time latex Allergy Unknown Unknown Verified 01/09/24 19:27 Ckdccld-DUZ-CjE Reductase AdvReac Severe muscle pain Verified 01/09/24 19:27 Inhibitor (Bejiwbx-Hma-Nmp Reductase Inhibitor) Family History Mother Diabetes Myocardial infarction Heart disease High cholesterol Grandmother Parkinson disease Father Prostate cancer Grandfather COPD (chronic obstructive pulm (more content not included)... Normal [facility] Internal Medicine Office Vis iton 01-09-2024 Internal Medicine Office Visit [facility] [address] [place] [address] [place] [address] OFFICE VISIT Date of Service: 01/09/24 MR#: [id number] Acct: [id number] Name: OLIVIER MENDOZA Rep #: [id number] : 1960 Provider: Dr. Sherice rock MD Age/Sex: 63/M Location: [facility] Status: Signed Intake Vital Signs 10/11/23 15:10 01/09/24 14:20 Height 5 ft 7 in 5 ft 7 in Weight: 175 lb 8 oz BMI 27.4 BP 126/74 H Blood Pressure Location Lt brachial Position Sitting Respiration 16 Pulse 83 Pulse Source Monitor Temp 97.4 F L Temp Source Temporal Pulse Oximetry (%) 97 Oxygen Delivery Method room air Intake Visit Reasons: MED FOLLOW UP Chief Complaint: Follow-up chronic conditions 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 Accompanied by: Self Is patient in pain?: No Allergies latex Allergy (Unknown, Verified 01/09/24 14:15) Unknown Vlxnrba-WPG-AkW Reductase Inhibitor (Bqjibrs-Rau-Neo Reductase Inhibitor) Adverse Reaction (Severe, Verified 01/09/24 14:15) muscle pain Medications ???Medication ???Instructions ???Recorded ???Confirmed ???Type aspirin 81 mg tablet,delayed 81 mg PO DAILY 09/19/18 01/09/24 History release insulin lispro 100 unit/mL See Rx Instructions subcut TID 12/04/19 01/09/24 History subcutaneous pen (Humalog KwikPen e10.9 (U-100) Insulin) omega-3 fatty acids 1,000 mg 1,000 mg PO DAILY 12/04/19 01/09/24 History capsule (Fish Oil Concentrate) cholecalciferol (vitamin D3) 50 50 mcg PO DAILY 03/11/20 01/09/24 History mcg (2,000 unit) capsule blood sugar diagnostic #360 ea 01/25/21 01/09/24 Rx blood-glucose meter (OneTouch #1 ea 01/25/21 01/09/24 Rx Ultra2 Meter kit) insulin needles (disposable) 30 X ##1 01/25/21 01/09/24 History 3/4 insulin syr/ndl U100 half gilmar 0.3 #100 ea 01/25/21 01/09/24 Rx mL 31 gauge x 1/4 pen needle, diabetic 31 gauge x #100 ea 01/25/21 01/09/24 Rx 3/16 (BD Ultra-Fine Mini Pen Needle) handicap placard See Rx Instructions .Route 05/25/21 01/09/24 Rx .COMPLEX #1 unit insulin glargine 100 unit/mL (3 25 unit subcut DAILY e10.9 01/01/22 01/09/24 History mL) subcutaneous pen (Lantus Solostar U-100 Insulin) tadalafil 5 mg tablet 10 mg PO DAILY 08/27/22 01/09/24 History albuterol sulfate 90 mcg/actuation 2 puff inhalation Q4-6H PRN 04/24/23 01/09/24 Rx aerosol inhaler shortness of breath or wheezing #6.7 grams omeprazole 40 mg capsule,delayed 40 mg PO DAILY #90 caps 05/22/23 01/09/24 Rx release oxybutynin chloride 10 mg 10 mg PO DAILY 05/22/23 01/09/24 History tablet,extended release 24 hr evolocumab 140 mg/mL subcutaneous 140 mg subcut Q2W #2 mL 06/06/23 01/09/24 Rx pen injector (Andres Titus) amlodipine 5 mg tablet 5 mg PO DAILY #90 tabs 11/13/23 01/09/24 Rx metoprolol tartrate 25 mg tablet 12.5 mg (1/2 x 25 mg) PO BID #90 12/16/23 01/09/24 Rx tabs doxazosin 1 mg tablet 1 mg PO QHS #90 TABLETS 12/18/23 01/09/24 Rx fluticasone propionate 50 1 spray intranasal DAILY PRN nasal 12/20/23 01/09/24 Rx mcg/actuation nasal congestion #16 grams spray,suspension hydrochlorothiazide 25 mg tablet 25 mg PO DAILY #90 tabs 12/25/23 01/09/24 Rx losartan 100 mg tablet 100 mg PO DAILY #30 tabs 12/30/23 01/09/24 Rx compress.barbara caballero,reg,lrg #2 ea 01/09/24 01/09/24 Rx levothyroxine 150 mcg tablet 150 mcg PO DAILY #90 tabs 01/09/24 01/09/24 Rx Have you fallen in the past year?: No PFSH Medical History Preop cardiovascular exam CKD (chronic kidney disease), stage III GERD (gastroesophageal reflux disease) Chest congestion Preoperative evaluation to rule out surgical contraindication Sinusitis Skin cyst Fatigue Left elbow pain Health care maintenance Proteinuria Nephropathy Bilateral lower extremity edema COVID-19 vaccine series completed Atherosclerotic heart disease of lumbee coronary artery without angina pectoris Mixed hyperlipidemia 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 Diabetic foot ulcer associated with diabetes mellitus due to underlying condition Decubitus ulcer of foot, stage 2 Carotid artery stenosis Bradycardia Granuloma annulare Hypothyroidism BPH (benign prostatic hyperplasia) Abdominal pain Sleep apnea Hearing problem Back problem High calcium levels Type 1 diabetes mellitus Meniere's disease Acquired plantar keratoderma Essential hypertension Surgical History Hx of bilateral cataract extraction ( 06/2022) History of left heart catheterization (05/09/20) History of removal of cyst History of eye surgery Family History Mother Diabetes Myocardial infarction Heart disease High cholesterol Grandmother Parkinson d (more content not included)... Normal [facility] L501.4020on 01-09-2024 TROPONIN-I HS 20 pg/mL Normal 3.0-78.0 [facility] Comment on above: Result Comment: [place] aldana Note: New Test Units and Gender Specific Reference Ranges. For more information see Policy Stat Procedure [place] High Sensitivity Troponin (TNIH) and attachments. Performed By: #### L 100.0100, L501.4021, L500.2500 #### [facility] [address] [place], [place], [address] L501.5425on 01-09-2024 TROPONIN-I HS 20 pg/mL Normal 3.0-78.0 [facility] Comment on above: Order Comment: 1 Y Result Comment: [place] aldana Note: New Test Units and Gender Specific Reference Ranges. For more information see Policy Stat Procedure [place] High Sensitivity Troponin (TNIH) and attachments. Performed By: #### L 501.5425, L500.2500, L100.0100, L503.6620 #### [facility] [address] [place], [address] Lipid Profileon 01-09-2024 HDL Normal [facility] Comment on above: Result Comment: TOO SOON TO HAVE DONE The drugs N-Acetylcysteine and Metamizole may falsely depress this assay. Performed By: #### L 100.0100, L501.4021, L500.2500 #### [facility] [address] [place], [address] TRIG Normal [facility] Comment on above: Result Comment: TOO SOON TO HAVE DONE The drugs N-Acetylcysteine and Metamizole may falsely depress this assay. Performed By: #### L 100.0100, L501.4021, L500.2500 #### [facility] [address] [place], [address] CHOL Normal 200 [facility] Comment on above: Result Comment: TOO SOON TO HAVE DONE Performed By: #### L 100.0100, L501.4021, L500.2500 #### [facility] [address] [place], [address] LDL Normal 0-130 [facility] Comment on above: Result Comment: TOO SOON TO HAVE DONE Performed By: #### L 100.0100, L501.4021, L500.2500 #### [facility] [address] [place], [address] VLDL Normal 5-40 [facility] Comment on above: Result Comment: TOO SOON TO HAVE DONE Performed By: #### L 100.0100, L501.4021, L500.2500 #### [facility] [address] [place], [address] Liver Profileon 01-09-2024 ALB Normal 3.2-5.0 [facility] Comment on above: Result Comment: TOO SOON TO HAVE DONE Performed By: #### L 100.0100, L501.4021, L500.2500 #### [facility] [address] [place], [address] ALK P Normal 45-117 [facility] Comment on above: Result Comment: TOO SOON TO HAVE DONE Performed By: #### L 100.0100, L501.4021, L500.2500 #### [facility] [address] [place], [address] ALT Normal 16-61 [facility] Comment on above: Result Comment: TOO SOON TO HAVE DONE Performed By: #### L 100.0100, L501.4021, L500.2500 #### [facility] [address] [place], [address] AST Normal 15-37 [facility] Comment on above: Result Comment: TOO SOON TO HAVE DONE Performed By: #### L 100.0100, L501.4021, L500.2500 #### [facility] [address] [place], [address] D BILI Normal 0.00-0.30 [facility] Comment on above: Result Comment: TOO SOON TO HAVE DONE Performed By: #### L 100.0100, L501.4021, L500.2500 #### [facility] [address] [place], [address] T BILI Normal 0.20-1.00 [facility] Comment on above: Result Comment: TOO SOON TO HAVE DONE Performed By: #### L 100.0100, L501.4021, L500.2500 #### [facility] [address] [place], [address] T PROT Normal 6.4-8.2 [facility] Comment on above: Result Comment: TOO SOON TO HAVE DONE Performed By: #### L 100.0100, L501.4021, L500.2500 #### [facility] [address] [place], [address] Magnesiumon 01-09-2024 Magnesium [Mass/Vol] 2.1 mg/dL Normal 1.6-2.6 [facility] Comment on above: Performed By: #### L 100.0100, L501.4021, L500.2500 #### [facility] [address] [place], [address] OPERATIVE NOon 06-25-2023 OPERATIVE NO HNO ID: [id number] Author: FABIOLA PARKER JR, DO Service: Ophthalmology Author Type: Physician Type: Operative Report Filed: 07/12/2023 10:30 Note Text: [facility] - OPERATIVE REPORT OLIVIER MENDOZA : 1960 AGE: 62. SEX: M PATIENT TYPE: A HOSP SVC: OPH LOCATION: [place] [address] ATTENDING PHYSICIAN: Fabiola Parker DO CSN NUMBER: [id number] DATE OF SURGERY/PROCEDURE: 06/12/2023 INCISION/PROCEDURE START TIME: INCISION CLOSE/PROCEDURE END TIME: PREOPERATIVE DIAGNOSIS: Relatively chronic full-thickness macular hole, right eye. POSTOPERATIVE DIAGNOSIS: Relatively chronic full-thickness macular hole, right eye. SURGEON: Fabiola Parker DO CREAM MAKER: SURGERY/PROCEDURE: ANESTHESIA: General. NAME OF OPERATIONS: Pars plana vitrectomy, membranectomy, removal of internal limiting membrane and gas fluid exchange, right eye. COMPLICATIONS: None. DESCRIPTION OF PROCEDURE: The patient was brought to the operating room, where after induction of general anesthesia, the right eye was prepped and draped in the usual sterile fashion. After insertion of a right eyelid speculum, a 25-gauge trocar was passed 4 mm posterior to the limbus in the inferotemporal quadrant. Infusion line was connected. Ophthalmoscopy confirmed placement of the vitreous cavity and infusion was then turned on. 25-gauge trocars were then passed 4 mm posterior to the limbus in each of the 2 superior intramuscular quadrants. The Microvit cutting instrument and the endoilluminator were inserted. Initially, a central core vitrectomy was performed. Preoperatively, the exact status of the posterior hyaloid could not be determined, although an absence of vitreous separation was suspected. Now after central core vitrectomy had been performed, the deep cortical vitreous was approached in the region of the optic nerve. With modest effort, it became apparent that the hyaloid remained attached. The cortical vitreous was engaged and with mild to moderate effort, the deep cortical vitreous and the posterior hyaloid could be peeled away from the post-equatorial retina in an uncomplicated manner. Of note, the hyaloid was noted to be a bit more firmly attached to the macula then the normal situation, but again it could be peeled from the central macular region and throughout the entire post-equatorial retina again in an uncomplicated manner. Now, the hyaloid structures along the deep cortical vitreous were removed from the retinal surface, these structures were excised with the Microvit cutting instrument and the vitreous skirt was trimmed into the periphery for 360 degrees thus completing the vitrectomy aspect of the procedure. The macula was viewed. This had been continuously through the case and full- thickness macular hole was noted. At this point in time, tissue glue was gently instilled over the macular region. It was allowed to remain in contact for 1 minute and was thereafter thoroughly lavaged from the posterior segment of the eye. At this point in time, the grasping forcep was inserted with minimal effort. The internal limiting membrane could be peeled away from the central macular region for a distance of approximately 1 disc diameter from the edge of the macular hole or perhaps slightly less in the region of the PMD. Now with the internal limiting membrane appearing to be adequately removed, thesclerotomies were plugged and indirect ophthalmoscopy with scleral depression examination was undertaken. The pre- equatorial retina was inspected to the ora and there was no evidence of peripheral vitreoretinal pathology. Specifically, there was no evidence of retinal tear. Having made these observations, the eye was re-entered and an air-fluid exchange was performed. Several minutes were allowed to elapse and the additional fluid was aspirated at this point as well to ensure complete air fill. Following this, the trocar sleeves were removed superiorly. Just prior to removal of the 2nd trocar sleeve, 15% C3F8 gas was exchanged for the previously instilled filtered air. Now with the gas exchange performed, each sclerotomy was checked carefully for wound leak and if present it was corrected by placement of a single 7-0 Vicryl suture. Now, with this performed, the infusion cannula along with this trocar sleeve inferotemporally was removed and this sclerotomy was treated in an identical manner. Following these maneuvers, intra-ocular pressure was checked and found to be within the normal range and remained stable over several minutes, thus confirming an absence of wound leak. Therefore, following this, gentamicin was injected subconjunctivally in the inferonasal quadrant. Appropriate ophthalmic drops were instilled onto the cornea of the operated right eye. The speculum was removed and patch and shield were applied to the right eye. The patient was then r (more content not included)... [facility] [id number] 06-12-2023 [id number] HNO ID: [id number] Author: ADALI SULLIVAN RN Service: ? Author Type: Registered Nurse Type: [id number] Filed: 06/12/2023 13:46 Note Text: Patient positioning: If laying down MUST be on left side Stay upright if not lying on left side Ensure that Norvasc dose is clarified with ordered physician Do NOT take Cialis until fur Hold cialis until notified otherwise by Dr Parker, resume home diet, and please clarify home dose of losartan with PCP prior to resuming Fabiola Parker Jr., DO 06/12/23 1345 DISCHARGE [place] ([place]) ([place]CHARGE PAT[place] ([place] ONCE ther instruction. [facility] 06-12-2023 ALLIED HEALTH HNO ID: [id number] Author: JESS MOORE RT(R) Service: Radiology Author Type: Technologist Type: Allied Health Filed: 06/12/2023 11:47 Note Text: Radiology Service Progress Note PATIENT NAME: Olivier Mendoza DATE OF SERVICE: June 12, 2023 TIME: 11:47 AM PATIENT IDENTITY VERIFICATION COMPLETED USING TWO (2) IDENTIFIERS: Name and Date of confirmed by identification band. FALL SCREENING: Has the patient had 2 falls in the last year or 1 fall with injury or currently using an Ambulatory Assistive Device (Walker, Cane, Wheelchair, Crutches, etc.)? Inpatient: Screened on floor PATIENT GENDER DATA: Male PATIENT RELEVANT IMPLANT DATA REVIEWED: Not Applicable PATIENT PRESENTS WITH AN IMPLANTABLE OR ATTACHED DUAL RATE SUPERVISOR: No RADIOLOGY DEPARTMENT: General X-ray: Exam(s) Completed: Chest X-Ray PERIPHERAL IV DATA: Not applicable SIGNED BY: RT Yasmany(R) June 12, 2023 11:47 AM [facility] ANES POSTPROC EVALon 024 ANES POSTPROC EVAL HNO ID: [id number] Author: AUDREY RIOS DO Service: Anesthesiology Author Type: Anesthesiologist Type: Anesthesia Postprocedure Evaluation Filed: 06/12/2023 12:52 Note Text: POST ANESTHESIA EVALUATION NOTE : 1960 Procedure Summary Date: 06/12/23 Room / Location: MR OR 08 / MR OR Anesthesia Start: 733 Anesthesia Stop: 1003 Procedure: VITRECTOMY [address] [facility] APPROACH W/ REMOVAL OF INTERNAL LIMITING RETINA MEMBRANE (Right: Eye) Diagnosis: Macular hole, right eye (Macular hole, right eye [H35.341]) Surgeons: Fabiola Parker Jr., DO Responsible Provider: Audrey Rios DO Anesthesia Type: general ASA Status: 3 Anesthesia Type: general Airway Type: ETT Last Vitals Vitals Value Taken Time BP 192/74 06/12/23 1245 Temp 36.8 ?C (98.2 ?F) 06/12/23 1000 Pulse 77 06/12/23 1250 Resp 20 06/12/23 1200 SpO2 94 % 06/12/23 1250 Vitals shown include unfiled device data. Post Anesthesia Patient Status Patient Evaluation: PACU. PACU/ICU Patient Condition: stable. Anticipated Disposition: phase 2 then home. Neurological Status: aware and responsive. Pulmonary Status: breathing comfortably on room air Airway Control: returned to baseline unsupported. Cardiovascular Status: stable. Pain Management: clinically adequate Postoperative Hydration: acceptable. Intraoperative Events: no significant anesthesia events Post Operative Nausea/Vomiting Status: no significant post operative nausea or vomiting Recommendation: further care per PACU/ICU/floor team. Anesthesia Observations No Documentation SIGNATURE: Audrey Rios DO PATIENT NAME: Olivier Mendoza DATE: June 12, 2023 TIME: 12:52 PM CSN: [id number] [facility] ANES PRE-OPon 06-12-2023 ANES PRE-OP HNO ID: [id number] Author: BLANCA, AUDREY, DO Service: Anesthesiology Author Type: Anesthesiologist Type: Anesthesia Preprocedure Evaluation Filed: 06/12/2023 06:54 Note Text: ANESTHESIOLOGY DAY OF SURGERY NOTE : 1960 Procedure Information Date/Time: 06/12/23729 Procedure: VITRECTOMY [address] [facility] APPROACH W/ REMOVAL OF INTERNAL LIMITING RETINA MEMBRANE (Right: Eye) Location: MR OR 08 / MR OR Surgeons: Fabiola Parker Jr., DO Estimated body mass index is 28.11 kg/m? as calculated from the following: Height as of this encounter: 170.2 cm (5' 7). Weight as of this encounter: 81.4 kg (179 lb 7.3 oz). Most recent hematocrit and potassium results: Hematocrit 41.8 07/18/2012 Potassium 4.2 05/25/2015 Relevant Problems ANESTHESIA (+) [place] (obstructive sleep apnea) ENDO (+) Type 2 diabetes mellitus with microalbuminuria, without long-term current use of insulin (HCC) NEURO-PSYCH (+) Seizures, generalized convulsive (HCC) during sleep, provisional PULMONARY (+) [place] (obstructive sleep apnea) I - PHYSICAL EVALUATION AIRWAY Patient intubated: No. Tracheostomy tube not present Mallampati: II. TM distance: >3 FB. Neck ROM: full ROM without neurological symptoms. Mouth opening: adequate. Short neck: no. Thick neck: no II - ANESTHESIA PLAN ASA Score: 3 Anesthetic Plan: general Airway type: ETT NPO Status: adequate Beta Demarco Monitoring Plan Monitoring plan: standard ASA. Post Procedure Analgesic Plan Postoperative analgesic plan: multimodal analgesia. Informed Consent Anesthetic risks, benefits, alternatives, personnel and consent discussed: yes. Patient / Responsible Constitution Party agrees to proceed: yes Patient / Surrogate agrees to blood products: Yes Vitals Value Taken Time BP 130/78 06/12/23 0554 Pulse 73 06/12/23 0553 Resp 18 06/12/23 0553 Temp 36.9 ?C (98.4 ?F) 06/12/23 05 SpO2 98 % 06/12/23 0553 Facility-Administer ed Medications as of 06/12/2023 Medication Dose Route Frequency - lidocaine (PF) 10 mg/mL (1 %) 2 mg injection (XYLOCAINE) 0.2 mL INTRADERMAL PRN - lactated ringers iv infusion 30 mL/hr INTRAVENOUS CONTINUOUS - NaCl 0.9% iv flush bag 20 mL INTRAVENOUS PRN - [COMPLETED] atropine 1 % 1 Drop 1 Drop RIGHT EYE ONCE - PHENYLephrine 2.5 % 1 Drop (AK-DILATE, EVE-SYNEPHRINE) 1 Drop RIGHT EYE q 15 MIN - tropicamide 1 % 1 Drop (MYDRIACYL) 1 Drop RIGHT EYE q 15 MIN - ofloxacin 0.3 % 1 Drop (OCUFLOX) 1 Drop RIGHT EYE q 15 MIN Outpatient Medications as of 06/12/2023 Medication Sig - levothyroxine 150 mcg cap Take 150 mcg by mouth daily before breakfast. - metoprolol tartrate, short acting, (LOPRESSOR) 12.5 mg tab Take 12.5 mg by mouth every 12 hours. - doxazosin (CARDURA) 1 mg tablet Take 1 mg by mouth daily at bedtime. - amLODIPine (NORVASC) 5 mg tablet Take 430 mg by mouth every morning. - Tadalafil (CIALIS) 5 mg tablet Take 5 mg by mouth every evening. For urinary and blood flow per patient - Insulin Lispro, Human, (HUMALOG KWIKPEN) 100 unit/mL inpn Take 12-16 units at meals (Patient taking differently: three times a day before meals. Take 12-20 units at meals - depends on meal) - losartan (COZAAR) 100 mg tablet Take 1 tablet by mouth once daily. (Patient taking differently: Take 100 mg by mouth every evening.) - insulin glargine (LANTUS SOLOSTAR) 100 unit/mL (3 mL) inpn 33 units at bedtime (Patient taking differently: Inject 28 Units subcutaneously every morning. 33 units at bedtime) - Insulin Syringe-Needle U-100 (BD INSULIN SYRINGE ULTRA-FINE) 1/2 mL 31 x 5/16 syrg use as directed with insulin injections four times daily - CPAP AutoPAP @ 7-15 cm of water with humidification. Mask (per patient preference) optional chin strap (if indicated), filters, tubing / heated tubing, heated humidity and lifetime supplies. Dx. [place] G47.33 327.23 (Patient not taking: Reported on 06/10/2023) - Docosahexanoic Acid-Eicosapent (FISH OIL) 120-180 mg capsule Take 1 g by mouth once daily. Will hold until after procedure on 06/11 I have interviewed and examined the patient. I have reviewed the medical record and/or the pre-anesthesia evaluation, pertinent labs, and test results. This contains updated information obtained within 48 hours of Surgery/Procedure. SIGNATURE: Audrey Rios DO PATIENT NAME: Olivier Mendoza DATE: June 12, 2023 TIME: 6:54 AM CSN: [id number] [facility] BRIEF OP NOTon 06-12-2023 BRIEF OP NOT HNO ID: [id number] Author: FABIOLA PARKER JR, DO Service: Ophthalmology Author Type: Physician Type: Brief Op Note Filed: 06/12/2023 10:10 Note Text: BRIEF OPERATIVE / PROCEDURE NOTE LOG ID: [id number] SURGERY/PROCEDURE DATE: 06/12/2023 INCISION/PROCEDURE START TIME: 8:14 AM INCISION CLOSE/PROCEDURE END TIME: 9:47 AM SURGEON(S)/PROCEDUR ALIST(S) AND CREAM MAKER(S): Surgeon(s) and Role: * Fabiola Parker Jr., DO - Primary Assembler Brazer: Mariama Sandoval SA SURGERY/PROCEDURE(S ): Procedure(s) (LRB): VITRECTOMY [address] [facility] APPROACH W/ REMOVAL OF INTERNAL LIMITING RETINA MEMBRANE (Right) MEMBRANECTOMY AND GAS FLUID EXCHANGE RIGHT EYE ANESTHESIA: General FINDINGS: See above SPECIMENS: * No specimens in log * COMPLICATIONS: None IMPLANTS: None PRE-OP/PRE-PROCEDUR E DIAGNOSIS: Macular hole, right eye [H35.341] POST-OP/POST-PROCED URE DIAGNOSIS: Same as Pre-op diagnosis SIGNATURE: Fabiola Parker DO PATIENT NAME: Olivier Mendoza DATE: June 12, 2023 TIME: 10:10 AM [facility] HISTORY PHYSICALon HISTORY PHYSICAL HNO ID: [id number] Author: FABIOLA PARKER JR, DO Service: Ophthalmology Author Type: Physician Type: H&P Filed: 06/12/2023 07:25 Note Text: UPDATED HISTORY AND PHYSICAL EXAMINATION SERVICE DATE: 06/12/2023 SERVICE TIME: 7:24 PHYSICAL EXAM MUST BE COMPLETED ON ADMISSION The History and Physical (completed in the past 30 days) has been reviewed and the patient has been examined. The contents accurately reflect the patient's condition with the following additions or revisions since the HANDP was completed. Examination indicates no changes. This HANDP can be found in the paper record dated 05/22/23. SIGNATURE: Fabiola Parker DO PATIENT NAME: Olivier Mendoza DATE: June 12, 2023 TIME: 7:24 AM [facility] NURSING PROGon 06-12-2023 NURSING PROG HNO ID: [id number] Author: CATHY PATTEN RN Service: Nursing Author Type: Registered Nurse Type: Nursing Progress Note Filed: 06/12/2023 13:33 Note Text: Dr. Parker contacted regarding discharge instructions clarification. New discharge orders received. [facility] NURSING PROG HNO ID: [id number] Author: OLGA MILLER RN Service: Nursing Author Type: Registered Nurse Type: Nursing Progress Note Filed: 06/12/2023 11:30 Note Text: Dr Rios notified of pts resp status again, new order received for PCXR. Will continue to monitor. [facility] XR CHEST 1V FRONTAL PORTon 0 06-12-2023 XR CHEST 1V FRONTAL PORT * * *Final Repo rt* * * DATE OF EXAM: Jun 12 2023 11:46AM RHX [id number] - XR CHEST 1V FRONTAL PORT / PROCEDURE REASON: Hypoxemia * * * * Physician Interpretation * * * * EXAMINATION: CHEST RADIOGRAPH (PORTABLE SINGLE VIEW AP) Exam Date/Time: 06/12/2023 11:46 AM CLINICAL HISTORY: Hypoxemia MQ: XCPR_5 Comparison: None RESULT: The heart is borderline enlarged. Atherosclerotic calcifications are present within the aorta. Pulmonary vasculature is not significantly congested. Streaky opacities in the left perihilar region are likely related to subsegmental atelectasis. No focal consolidation or pleural fluid. Lung volumes are decreased. No pneumothorax. IMPRESSION: Decreased lung volumes with left perihilar atelectasis. Aerospace Project Engineer: PSCB Transcribe Date/Time: Jun 12 2023 12:49P Dictated by : QUENTIN CAMARGO MD This examination was interpreted and the report reviewed and electronically signed by: QUENTIN CAMARGO MD on Jun 12 2023 12:50PM EST [id number] [facility] ANES PREOPon 06-11-2023 ANES PREOP HNO ID: [id number] Author: DILLON PRUETT PA-C Service: ? Author Type: Physician Electronic Lab Technician Type: Anesthesia PreOp Filed: 06/11/2023 08:48 Note Text: 62 yo male ex-smoker PMH: CKD3, CAD (no PCI - [facility]), carotid artery stenosis, HTN, HLD, DM on insulin, hypothyroid, Meniere's, [place] intolerant of CPAP, BPH on tadalafil, GERD Medical clearance from [place] scanned in [facility] under HANDP noting he is medically optimized for surgery but requires cardiology evaluation prior to surgery. (Page 6) Cardiac clearance by German GARCIA scanned under HANDP in [facility] (page 13) Most recent echo in 2019 showed EF of 60%. If needed, he should hold aspirin 7 days prior.) EKG 06/06/23 SR rate 79, Tracing page 14 From HANDP [facility] 05/09/20 diffuse CAD with small vessels noted in the entire coronary vasculature [facility] Absolute lymphocyte countOrd ered By: Sherice Avendano on 05-22-2023 Lymphocytes Auto (Unsp spec) [#/Vol] 1.24 10*3/uL 0.83-4.51 [facility] Automated lymphocyte count a s percentage of total leukocytesOrdered By: Sherice Avendano on 05-22-2023 Lymphocytes/100 WBC Auto (Unsp spec) 16.6 % 19-41 [facility] Basophil percentageOrdered B y: Sherice Avendano on 05-22-2023 Basophils/100 WBC (Bld) 0.3 % 0-1 [facility] Bilirubin [Mass/Vol] 0.40 mg/dL 0.20-1.00 [facility] Comment on above: For patients on eltr ombopag therapy, use of Dimension [place] TBIL is not recommended. Chloride [Moles/Vol] 102 mmol/L 98-107 [facility] Eosinophils/100 WBC (Bld) 3.6 % 0-5 [facility] Glucose [Mass/Vol] 239 mg/dL 74-106 [facility] Comment on above: Glucose result great er than or equal to 200 mg/dLsuggests DIABETES MELLITUS per A.D.A. criteria. Hemoglobin (Bld) [Mass/Vol] 11.9 g/dL 13.0-16.5 [facility] Monocytes/100 WBC (Bld) 6.4 % 0-10 [facility] Neutrophils (Bld) [#/Vol] 5.4 10*3/uL 2.0-7.7 [facility] Neutrophils/100 WBC (Bld) 72.7 % 47-70 [facility] Potassium [Moles/Vol] 5.4 mmol/L 3.5-5.1 [facility] Protein [Mass/Vol] 6.7 g/dL 6.4-8.2 [facility] Sodium [Moles/Vol] 135 mmol/L 136-145 [facility] WBC (Bld) [#/Vol] 7.5 10*3/uL 4.4-11.0 [facility] Determination of erythrocyte mean corpuscular volume (MCV)Ordered By: Sherice Avendano on 05-22-2023 MCV (RBC) [Entitic vol] 91.2 fL 80-94 [facility] Erythrocyte distribution wid th ratioOrdered By: [facility] Avendano on 05-22-2023 Erythrocyte distribution width (RBC) [Ratio] 14.1 % 11.6-14.6 [facility] Erythrocyte distribution wid th standard deviationOrdered By: Luis Awashingtonkarla Avendano on 05-22-2023 Erythrocyte distribution width (RBC) [Entitic vol] 47.2 fL 35.1-43.9 [facility] Hematocrit Auto (Bld) [Volum e fraction]Ordered By: Sherice Avendano on 05-22-2023 Hematocrit (Bld) [Volume fraction] 37.5 % 40-54 [facility] Immature granulocytes/100 WB C Auto (Bld)Ordered By: Sherice Avendano on 05-22-2023 Immature granulocytes/100 WBC (Bld) 0.400 % 0.0-0.9 [facility] Comment on above: IG% - Immature Granu locytes (promyelocytes, myelocytes and metamyelocytes) > 1% indicates that a LEFT SHIFT is Present. Laboratory - Chemistry and C hemistry - challengeOrdered By: Sherice Avendano on 05-22-2023 Albumin/Globulin [Mass ratio] 0.7 {ratio} 0.9-2.4 [facility] ALP [Catalytic activity/Vol] 129 U/L 45-117 [facility] ALT [Catalytic activity/Vol] 26 U/L 16-61 [facility] CO2 [Moles/Vol] 27.0 mmol/L 21.0-32.0 [facility] Globulin (S) [Mass/Vol] 3.9 g/dL 2.2-4.2 [facility] Urea nitrogen/Creatinine [Mass ratio] 15.2 mg/mg 10-20 [facility] Laboratory - Hematology and Cell countsOrdered By: Sherice Avendano on 05-22-2023 MCH (RBC) [Entitic mass] 29.0 pg 27.0-32.0 [facility] MCHC (RBC) [Mass/Vol] 31.7 g/dL 32-36 [facility] Nucleated RBC/100 WBC (Bld) [Ratio] 0 % 0-5 [facility] Platelet mean volume (Bld) [Entitic vol] 9.2 fL 6.2-12.0 [facility] Platelets (Bld) [#/Vol] 400 10*3/uL 150-450 [facility] No Panel InformationOrdered By: Sherice Avendano on 05-22-2023 Estimated GFR (MDRD) Amer 50 mL/min >60 [facility] Comment on above: GFR Calc Estimated GFR (MDRD) Non-Af Amer 41 mL/min >60 [facility] Comment on above: Non- GFR Calc RBC Auto (Bld) [#/Vol]Ordere d By: Sherice Avendano on 05-22-2023 RBC (Bld) [#/Vol] 4.11 10*6/uL 4.6-6.2 [facility] Serum or plasma calcium tiera urement (mass/volume)Ordered By: Sherice Avendano on 05-22-2023 Calcium [Mass/Vol] 9.1 mg/dL 8.5-10.1 [facility] Serum or plasma creatinine m easurement (mass/volume)Ordered By: Sherice Avendano on 05-22-2023 Creatinine [Mass/Vol] 1.78 mg/dL 0.70-1.30 [facility] Comment on above: The validity of the calculated GFR & GFRAA in patients over 70 years has not been determined. Clinical correlation is essential. Serum or plasma thyroid stim ulating hormone (TSH) measurement (units/volume)Ordered By: [facility] Iversoneros on 05-22-2023 TSH Qn 3.99 uIU/mL 0.358-3.74 [facility] Serum or plasma urea nitroge n measurement (mass/volume)Ordered By: [facility] Iversoneros on 05-22-2023 Urea nitrogen [Mass/Vol] 27 mg/dL 7-18 [facility] Thin prep Papanicolaou smear with manual screeningOrdered By: [facility] Iversoneros on 05-22-2023 Thin prep Papanicolaou smear with manual screening 2.8 g/dL 3.2-5.0 [facility] Thin prep Papanicolaou smear with manual screening 18 U/L 15-37 [facility] Thin prep Papanicolaou smear with manual screening 6 5-15 [facility] Laboratory - Microbiology an d Antimicrobial susceptibilityOrdered By: Yan Quintanilla on 04-24-2023 SARS-CoV-2 (COVID-19) RNA LUIGI+probe Ql (Unsp spec) [facility] CNCOon 04-15-2023 CNCO Letter Text Normal [facility] Absolute lymphocyte countOrd ered By: Sherice Avendano on 04-01-2023 Lymphocytes Auto (Unsp spec) [#/Vol] 1.39 10*3/uL 0.83-4.51 [facility] Automated lymphocyte count a s percentage of total leukocytesOrdered By: Sherice Avendano on 04-01-2023 Lymphocytes/100 WBC Auto (Unsp spec) 20.3 % 19-41 [facility] Basophil percentageOrdered B y: RIYA LAUREN on 04-01-2023 Bilirubin [Mass/Vol] 0.30 mg/dL 0.20-1.00 [facility] Comment on above: For patients on eltr ombopag therapy, use of Dimension [place] TBIL is not recommended. Chloride [Moles/Vol] 100 mmol/L 98-107 [facility] Cholesterol [Mass/Vol] 317 mg/dL <200 [facility] Comment on above: <200 mg/dL Desirable 200-240 mg/dL Borderline >240 mg/dL High Risk Glucose [Mass/Vol] 194 mg/dL 74-106 [facility] Comment on above: Fasting Glucose resu lt greater than or equal to 126 mg/dL suggests DIABETES MELLITUS per A.D.A. criteria. Potassium [Moles/Vol] 4.8 mmol/L 3.5-5.1 [facility] Protein [Mass/Vol] 7.2 g/dL 6.4-8.2 [facility] Sodium [Moles/Vol] 131 mmol/L 136-145 [facility] Triglyceride [Mass/Vol] 148 mg/dL <199 [facility] Comment on above: The drugs N-Acetylcy steine and Metamizole may falsely depress this assay.Serum Triglycerides Reference Interval Normal <150 mg/dL Borderline high 150 - 199 mg/dL High 200 - 499 mg/dL Very High > or = 500 mg/dL Basophil percentageOrdered B y: Sherice Avendano on 04-01-2023 Basophils/100 WBC (Bld) 0.6 % 0-1 [facility] Eosinophils/100 WBC (Bld) 3.7 % 0-5 [facility] Hemoglobin (Bld) [Mass/Vol] 12.5 g/dL 13.0-16.5 [facility] Monocytes/100 WBC (Bld) 7.3 % 0-10 [facility] Neutrophils (Bld) [#/Vol] 4.6 10*3/uL 2.0-7.7 [facility] Neutrophils/100 WBC (Bld) 67.8 % 47-70 [facility] Testosterone [Mass/Vol] 601 ng/dL 264-916 [facility] Comment on above: Adult male reference interval is based on a population ofhealthy nonobese males (BMI <30) between 19 and 39 yearsold. soraida Richards.al. JCEM 2017,102;[id number]. PMID:[id number]. WBC (Bld) [#/Vol] 6.8 10*3/uL 4.4-11.0 [facility] Determination of erythrocyte mean corpuscular volume (MCV)Ordered By: Sherice Avendano on 04-01-2023 MCV (RBC) [Entitic vol] 91.2 fL 80-94 [facility] Erythrocyte distribution wid th ratioOrdered By: [facility]la Iversoneros on 04-01-2023 Erythrocyte distribution width (RBC) [Ratio] 13.4 % 11.6-14.6 [facility] Erythrocyte distribution wid th standard deviationOrdered By: [facility]la Iversoneros on 04-01-2023 Erythrocyte distribution width (RBC) [Entitic vol] 45.2 fL 35.1-43.9 [facility] Free testosterone percentage Ordered By: amariliswashingtonkarla Avendano on 04-01-2023 Testosterone Free/Testosterone.total [Mass fraction] 2.20 % 1.50-4.20 [facility] Comment on above: Performed at: [facility] [employer] [address] [id number] Director: Aaron Lay PhD, Phone: [phone] at: [facility] [employer] [id number] Director: Eddi Ryan MD, Phone: [phone] Hematocrit Auto (Bld) [Volum e fraction]Ordered By: Sherice Avendano on 04-01-2023 Hematocrit (Bld) [Volume fraction] 39.6 % 40-54 [facility] High density lipoprotein (HD L) measurementOrdered By: RIYA LAUREN on 04-01-2023 Cholesterol in HDL (Body fld) [Mass/Vol] 68 mg/dL >40 [facility] Comment on above: The drugs N-Acetylcy steine and Metamizole may falsely depress this assay. Reference Range HDL <40 mg/dL Low HDL Cholesterol HDL >or= 60 mg/dL High HDL Cholesterol Immature granulocytes/100 WB C Auto (Bld)Ordered By: Sherice Avendano on 04-01-2023 Immature granulocytes/100 WBC (Bld) 0.300 % 0.0-0.9 [facility] Comment on above: IG% - Immature Granu locytes (promyelocytes, myelocytes and metamyelocytes) > 1% indicates that a LEFT SHIFT is Present. Laboratory - Chemistry and C hemistry - challengeOrdered By: RIYA LAUREN on 04-01-2023 Albumin/Globulin [Mass ratio] 0.8 {ratio} 0.9-2.4 [facility] ALP [Catalytic activity/Vol] 119 U/L 45-117 [facility] ALT [Catalytic activity/Vol] 24 U/L 16-61 [facility] CO2 [Moles/Vol] 27.0 mmol/L 21.0-32.0 [facility] Globulin (S) [Mass/Vol] 4.1 g/dL 2.2-4.2 [facility] Urea nitrogen/Creatinine [Mass ratio] 15.2 mg/mg 10-20 [facility] Laboratory - Hematology and Cell countsOrdered By: Sherice Avendano on 04-01-2023 MCH (RBC) [Entitic mass] 28.8 pg 27.0-32.0 [facility] MCHC (RBC) [Mass/Vol] 31.6 g/dL 32-36 [facility] Nucleated RBC/100 WBC (Bld) [Ratio] 0 % 0-5 [facility] Platelets (Bld) [#/Vol] 414 10*3/uL 150-450 [facility] Low density lipoprotein (LDL ) cholesterol measurementOrdered By: RIYA LAUREN on 04-01-2023 Cholesterol in LDL (Body fld) [Moles/Vol] 219 mg/dL 0-130 [facility] No Panel InformationOrdered By: RIYA LAUREN on 04-01-2023 Estimated GFR (MDRD) Amer 48 mL/min >60 [facility] Comment on above: GFR Calc Estimated GFR (MDRD) Non-Af Amer 40 mL/min >60 [facility] Comment on above: Non- GFR Calc Platelet mean volume Albert-Ec ker (Bld) [Entitic vol]Ordered By: Sherice Avendano on 04-01-2023 Platelet mean volume (Bld) [Entitic vol] 9.4 fL 6.2-12.0 [facility] RBC Auto (Bld) [#/Vol]Ordere d By: Sherice Avendano on 04-01-2023 RBC (Bld) [#/Vol] 4.34 10*6/uL 4.6-6.2 [facility] Serum or plasma calcium tiera urement (mass/volume)Ordered By: RIYA LAUREN on 04-01-2023 Calcium [Mass/Vol] 8.6 mg/dL 8.5-10.1 [facility] Serum or plasma creatinine m easurement (mass/volume)Ordered By: RIYA LAUREN on 04-01-2023 Creatinine [Mass/Vol] 1.84 mg/dL 0.70-1.30 [facility] Comment on above: The validity of the calculated GFR & GFRAA in patients over 70 years has not been determined. Clinical correlation is essential. Serum or plasma testosterone free measurement (mass/volume)Ordered By: Sherice Avendano on 04-01-2023 Testosterone Free [Mass/Vol] 13.22 ng/dL 5.00-21.00 [facility] Serum or plasma thyroid stim ulating hormone (TSH) measurement (units/volume)Ordered By: RIYA LAUREN on 04-01-2023 TSH Qn 3.09 uIU/mL 0.358-3.74 [facility] Serum or plasma urea nitroge n measurement (mass/volume)Ordered By: RIYA LAUREN on 04-01-2023 Urea nitrogen [Mass/Vol] 28 mg/dL 7-18 [facility] Thin prep Papanicolaou smear with manual screeningOrdered By: RIYA LAUREN on 04-01-2023 Thin prep Papanicolaou smear with manual screening 3.1 g/dL 3.2-5.0 [facility] Thin prep Papanicolaou smear with manual screening 18 U/L 15-37 [facility] Thin prep Papanicolaou smear with manual screening 4 5-15 [facility] Very low density lipoprotein (VLDL) cholesterol measurementOrdered By: RIYA LAUREN on 04-01-2023 Cholesterol in VLDL Calc [Moles/Vol] 30 mg/dL 5-40 [facility] Whole blood hemoglobin A1c/t otal hemoglobin ratio (mass fraction)Ordered By: RIYA LAUREN on 04-01-2023 HbA1c (Bld) [Mass fraction] 8.7 % 3.8-5.6 [facility] Comment on above: Normal < 5.7 % Predi abetic 5.7 - 6.4 % Diabetic >or= 6.5 % Please note range changes. Basophil percentageOrdered B y: Edna Tilley on 11-27-2022 Bilirubin [Mass/Vol] 0.30 mg/dL 0.20-1.00 [facility] Comment on above: For patients on eltr ombopag therapy, use of Dimension [place] TBIL is not recommended. Chloride [Moles/Vol] 105 mmol/L 98-107 [facility] Glucose [Mass/Vol] 163 mg/dL 74-106 [facility] Comment on above: Fasting Glucose resu lt greater than or equal to 126 mg/dL suggests DIABETES MELLITUS per A.D.A. criteria. Potassium [Moles/Vol] 4.9 mmol/L 3.5-5.1 [facility] Protein [Mass/Vol] 6.6 g/dL 6.4-8.2 [facility] Sodium [Moles/Vol] 134 mmol/L 136-145 [facility] Laboratory - Chemistry and C hemistry - challengeOrdered By: Edna Tilley on 11-27-2022 ALP [Catalytic activity/Vol] 131 U/L 45-117 [facility] ALT [Catalytic activity/Vol] 23 U/L 16-61 [facility] CO2 [Moles/Vol] 24.0 mmol/L 21.0-32.0 [facility] Globulin (S) [Mass/Vol] 3.8 g/dL 2.2-4.2 [facility] Urea nitrogen/Creatinine [Mass ratio] 15.7 mg/mg 10-20 [facility] No Panel InformationOrdered By: Edna Tilley on 11-27-2022 Estimated GFR (MDRD) Amer 57 mL/min >60 [facility] Comment on above: GFR Calc Estimated GFR (MDRD) Non-Af Amer 47 mL/min >60 [facility] Comment on above: Non- GFR Calc Serum or plasma albumin tiera urement (mass/volume)Ordered By: Edna Tilley on 11-27-2022 Albumin [Mass/Vol] 2.8 g/dL 3.2-5.0 [facility] Serum or plasma albumin/glob ulin mass ratioOrdered By: Edna Tilley on 11-27-2022 Albumin/Globulin [Mass ratio] 0.7 {ratio} 0.9-2.4 [facility] Serum or plasma calcium tiera urement (mass/volume)Ordered By: Edna Tilley on 11-27-2022 Calcium [Mass/Vol] 8.1 mg/dL 8.5-10.1 [facility] Serum or plasma creatinine m easurement (mass/volume)Ordered By: Edna Tilley on 11-27-2022 Creatinine [Mass/Vol] 1.59 mg/dL 0.70-1.30 [facility] Comment on above: The validity of the calculated GFR & GFRAA in patients over 70 years has not been determined. Clinical correlation is essential. Serum or plasma urea nitroge n measurement (mass/volume)Ordered By: Edna Tilley on 11-27-2022 Urea nitrogen [Mass/Vol] 25 mg/dL 7-18 [facility] Thin prep Papanicolaou smear with manual screeningOrdered By: Edna Tilley on 11-27-2022 Thin prep Papanicolaou smear with manual screening 15 U/L 15-37 [facility] Thin prep Papanicolaou smear with manual screening 5 5-15 [facility] Urine creatinine measurement (mass/volume)Ordered By: Edna Tilley on 11-27-2022 Creatinine (U) [Mass/Vol] 63.30 mg/dL NO RANGE EST. [facility] Urine protein measurement (m ass/volume)Ordered By: Edna Tilley on 11-27-2022 Protein (U) [Mass/Vol] 138.4 mg/dL 0.0-11.8 [facility] Urine protein/creatinine mas s ratioOrdered By: Edna Tilley on 11-27-2022 Protein/Creatinine (U) [Mass ratio] 2186 mg/g CRE 0-200 [facility] Whole blood hemoglobin A1c/t otal hemoglobin ratio (mass fraction)Ordered By: Edna Tilley on 11-27-2022 HbA1c (Bld) [Mass fraction] 9.0 % 3.8-5.6 [facility] Comment on above: Normal < 5.7 % Predi abetic 5.7 - 6.4 % Diabetic >or= 6.5 % Please note range changes. Basophil percentageOrdered B y: Sherice Joeeros on 09-28-2022 Bilirubin [Mass/Vol] 0.40 mg/dL 0.20-1.00 [facility] Comment on above: For patients on eltr ombopag therapy, use of Dimension [place] TBIL is not recommended. Chloride [Moles/Vol] 103 mmol/L 98-107 [facility] Glucose [Mass/Vol] 263 mg/dL 74-106 [facility] Comment on above: Glucose result great er than or equal to 200 mg/dLsuggests DIABETES MELLITUS per A.D.A. criteria. Potassium [Moles/Vol] 4.7 mmol/L 3.5-5.1 [facility] Protein [Mass/Vol] 7.0 g/dL 6.4-8.2 [facility] Sodium [Moles/Vol] 135 mmol/L 136-145 [facility] Laboratory - Chemistry and C hemistry - challengeOrdered By: Sherice Avendano on 09-28-2022 ALP [Catalytic activity/Vol] 164 U/L 45-117 [facility] ALT [Catalytic activity/Vol] 26 U/L 16-61 [facility] CO2 [Moles/Vol] 30.0 mmol/L 21.0-32.0 [facility] Globulin (S) [Mass/Vol] 4.1 g/dL 2.2-4.2 [facility] Urea nitrogen/Creatinine [Mass ratio] 16.0 mg/mg 10-20 [facility] No Panel InformationOrdered By: Sherice Avendano on 09-28-2022 Estimated GFR (MDRD) Amer 53 mL/min >60 [facility] Comment on above: GFR Calc Estimated GFR (MDRD) Non-Af Amer 44 mL/min >60 [facility] Comment on above: Non- GFR Calc Vitamin D 25-Hydroxy 43.9 ng/mL [facility] Comment on above: Vitamin D 25(OH) Sta tus Range Deficiency <20 ng/mL (50nmol/L) Insufficiency 20 - 30 ng/mL (50 - 75 nmol/L) Sufficiency 30 - 100 ng/mL (75 - 250 nmol/L) Toxicity >100 ng/mL (>250 nmol/L) Serum or plasma albumin tiera urement (mass/volume)Ordered By: Sherice Avendano on 09-28-2022 Albumin [Mass/Vol] 2.9 g/dL 3.2-5.0 [facility] Serum or plasma albumin/glob ulin mass ratioOrdered By: Sherice Avendano on 09-28-2022 Albumin/Globulin [Mass ratio] 0.7 {ratio} 0.9-2.4 [facility] Serum or plasma calcium tiera urement (mass/volume)Ordered By: Sherice Avendano on 09-28-2022 Calcium [Mass/Vol] 8.6 mg/dL 8.5-10.1 [facility] Serum or plasma creatinine m easurement (mass/volume)Ordered By: Sherice Avendano on 09-28-2022 Creatinine [Mass/Vol] 1.69 mg/dL 0.70-1.30 [facility] Comment on above: The validity of the calculated GFR & GFRAA in patients over 70 years has not been determined. Clinical correlation is essential. Serum or plasma urea nitroge n measurement (mass/volume)Ordered By: Sherice Avendano on 09-28-2022 Urea nitrogen [Mass/Vol] 27 mg/dL 7-18 [facility] Thin prep Papanicolaou smear with manual screeningOrdered By: Sherice Avendano on 09-28-2022 Thin prep Papanicolaou smear with manual screening 12 U/L 15-37 [facility] Thin prep Papanicolaou smear with manual screening 2 5-15 [facility] Whole blood hemoglobin A1c/t otal hemoglobin ratio (mass fraction)Ordered By: Enrrique Vaughn on 09-28-2022 HbA1c (Bld) [Mass fraction] 9.6 % 3.8-5.6 [facility] Comment on above: Normal < 5.7 % Predi abetic 5.7 - 6.4 % Diabetic >or= 6.5 % Please note range changes. Laboratory - Hematology and Cell countson 08-15-2022 HbA1c (Bld) [Mass fraction] 9.6 % 4.2-6.3 [facility] Basophil percentageOrdered B y: Dr. Vaughn on 05-01-2022 Basophil percentage 3.7 mg/dL 2.5-4.9 [facility] Bilirubin [Mass/Vol] 0.40 mg/dL 0.20-1.00 [facility] Comment on above: For patients on eltr ombopag therapy, use of Dimension [place] TBIL is not recommended. Chloride [Moles/Vol] 102 mmol/L 98-107 [facility] Glucose [Mass/Vol] 223 mg/dL 74-106 [facility] Comment on above: Glucose result great er than or equal to 200 mg/dLsuggests DIABETES MELLITUS per A.D.A. criteria. Potassium [Moles/Vol] 4.3 mmol/L 3.5-5.1 [facility] Protein [Mass/Vol] 6.5 g/dL 6.4-8.2 [facility] Sodium [Moles/Vol] 137 mmol/L 136-145 [facility] WBC (Bld) [#/Vol] 6.9 10*3/uL 4.4-11.0 [facility] Blood erythrocytes count (nu mber/volume)Ordered By: Dr. Vaughn on 05-01-2022 RBC (Bld) [#/Vol] 4.15 10*6/uL 4.6-6.2 [facility] Blood hemoglobin measurement (mass/volume)Ordered By: Dr. Vaughn on 05-01-2022 Hemoglobin (Bld) [Mass/Vol] 12.3 g/dL 13.0-16.5 [facility] Blood platelet mean volumeOr dered By: Dr. Vaughn on 05-01-2022 Platelet mean volume (Bld) [Entitic vol] 9.7 fL 6.2-12.0 [facility] Determination of erythrocyte mean corpuscular volume (MCV)Ordered By: Dr. Vaughn on 05-01-2022 MCV (RBC) [Entitic vol] 91.6 fL 80-94 [facility] Hematocrit Auto (Bld) [Volum e fraction]Ordered By: Dr. Vaughn on 05-01-2022 Hematocrit (Bld) [Volume fraction] 38.0 % 40-54 [facility] Laboratory - Chemistry and C hemistry - challengeOrdered By: Dr. Vaughn on 05-01-2022 ALP [Catalytic activity/Vol] 127 U/L 45-117 [facility] ALT [Catalytic activity/Vol] 22 U/L 16-61 [facility] CO2 [Moles/Vol] 28.0 mmol/L 21.0-32.0 [facility] Globulin (S) [Mass/Vol] 3.7 g/dL 2.2-4.2 [facility] Urea nitrogen/Creatinine [Mass ratio] 14.6 mg/mg 10-20 [facility] Laboratory - Hematology and Cell countsOrdered By: Dr. Vaughn on 05-01-2022 Erythrocyte distribution width (RBC) [Entitic vol] 46.5 fL 35.1-43.9 [facility] Erythrocyte distribution width (RBC) [Ratio] 13.7 % 11.6-14.6 [facility] MCH (RBC) [Entitic mass] 29.6 pg 27.0-32.0 [facility] MCHC Auto (RBC) [Mass/Vol]Or dered By: Dr. Vaughn on 05-01-2022 MCHC (RBC) [Mass/Vol] 32.4 g/dL 32-36 [facility] No Panel InformationOrdered By: Dr. Hale on 05-01-2022 Prostate Specific Antigen Screen 0.30 ng/mL 0.00-4.00 [facility] Comment on above: This test was perfor med using the TPSA assay method [facility]. Values obtained with differentassay methods cannot be used interchangably.When changing PSA assays in the course of monitoring apatient, additional sequential testing should be carriedout to confirm baseline values. No Panel InformationOrdered By: Dr. Vaughn on 05-01-2022 Estimated GFR (MDRD) Amer 57 mL/min >60 [facility] Comment on above: GFR Calc Estimated GFR (MDRD) Non-Af Amer 47 mL/min >60 [facility] Comment on above: Non- GFR Calc Parathyroid Hormone (Intact) 55.5 pg/mL 18.4-80.1 [facility] Thyroid Stimulating Hormone (TSH) 3.30 uIU/mL 0.358-3.74 [facility] Platelets bldOrdered By: Dr. Vaughn on 05-01-2022 Platelets (Bld) [#/Vol] 357 10*3/uL 150-450 [facility] Serum or plasma albumin tiera urement (mass/volume)Ordered By: Dr. Vaughn on 05-01-2022 Albumin [Mass/Vol] 2.8 g/dL 3.2-5.0 [facility] Serum or plasma albumin/glob ulin mass ratioOrdered By: Dr. Vaughn on 05-01-2022 Albumin/Globulin [Mass ratio] 0.8 {ratio} 0.9-2.4 [facility] Serum or plasma calcium tiera urement (mass/volume)Ordered By: Dr. Vaughn on 05-01-2022 Calcium [Mass/Vol] 8.4 mg/dL 8.5-10.1 [facility] Serum or plasma creatinine m easurement (mass/volume)Ordered By: Dr. Vaughn on 05-01-2022 Creatinine [Mass/Vol] 1.58 mg/dL 0.70-1.30 [facility] Comment on above: The validity of the calculated GFR & GFRAA in patients over 70 years has not been determined. Clinical correlation is essential. Serum or plasma urea nitroge n measurement (mass/volume)Ordered By: Dr. Vaughn on 05-01-2022 Urea nitrogen [Mass/Vol] 23 mg/dL 7-18 [facility] Thin prep Papanicolaou smear with manual screeningOrdered By: Dr. Vaughn on 05-01-2022 Thin prep Papanicolaou smear with manual screening 15 U/L 15-37 [facility] Thin prep Papanicolaou smear with manual screening 7 5-15 [facility] Urine creatinine measurement (mass/volume)Ordered By: Dr. Vaughn on 05-01-2022 Creatinine (U) [Mass/Vol] 74.60 mg/dL NO RANGE EST. [facility] Urine protein measurement (m ass/volume)Ordered By: Dr. Vaughn on 05-01-2022 Protein (U) [Mass/Vol] 230.3 mg/dL 0.0-11.8 [facility] Urine protein/creatinine mas s ratioOrdered By: Dr. Vaughn on 05-01-2022 Protein/Creatinine (U) [Mass ratio] 3087 mg/g CRE 0-200 [facility] Whole blood hemoglobin A1c/t otal hemoglobin ratio (mass fraction)Ordered By: Dr. Vaughn on 05-01-2022 HbA1c (Bld) [Mass fraction] 8.2 % 3.8-5.6 [facility] Comment on above: Normal < 5.7 % Predi abetic 5.7 - 6.4 % Diabetic >or= 6.5 % Please note range changes. Absolute lymphocyte countOrd ered By: Gennaro Fuentes on 01-26-2022 Lymphocytes Auto (Unsp spec) [#/Vol] 1.26 10*3/uL 0.83-4.51 [facility] Basophil percentageOrdered B y: Gennaro Fuentes on 01-26-2022 Basophil percentage 3.7 mg/dL 2.5-4.9 [facility] Basophils/100 WBC (Bld) 0.5 % 0-1 [facility] Chloride [Moles/Vol] 103 mmol/L 98-107 [facility] Eosinophils/100 WBC (Bld) 2.8 % 0-5 [facility] Glucose [Mass/Vol] 235 mg/dL 74-106 [facility] Comment on above: Glucose result great er than or equal to 200 mg/dLsuggests DIABETES MELLITUS per A.D.A. criteria. Neutrophils (Bld) [#/Vol] 5.6 10*3/uL 2.0-7.7 [facility] Neutrophils/100 WBC (Bld) 72.0 % 47-70 [facility] Potassium [Moles/Vol] 5.2 mmol/L 3.5-5.1 [facility] Sodium [Moles/Vol] 136 mmol/L 136-145 [facility] WBC (Bld) [#/Vol] 7.8 10*3/uL 4.4-11.0 [facility] Blood erythrocytes count (nu mber/volume)Ordered By: Gennaro Fuentes on 01-26-2022 RBC (Bld) [#/Vol] 4.13 10*6/uL 4.6-6.2 [facility] Blood hemoglobin measurement (mass/volume)Ordered By: Gennaro Fuentes on 01-26-2022 Hemoglobin (Bld) [Mass/Vol] 12.7 g/dL 13.0-16.5 [facility] Blood lymphocytes/100 leukoc ytesOrdered By: Gennaro Fuentes on 01-26-2022 Lymphocytes/100 WBC (Bld) 16.2 % 19-41 [facility] Blood monocytes/100 leukocyt esOrdered By: Gennaro Fuentes on 01-26-2022 Monocytes/100 WBC (Bld) 8.2 % 0-10 [facility] Blood platelet mean volumeOr dered By: Gennaro Fuentes on 01-26-2022 Platelet mean volume (Bld) [Entitic vol] 9.1 fL 6.2-12.0 [facility] Determination of erythrocyte mean corpuscular volume (MCV)Ordered By: Gennaro Fuentes on 01-26-2022 MCV (RBC) [Entitic vol] 91.8 fL 80-94 [facility] Hematocrit Auto (Bld) [Volum e fraction]Ordered By: Gennaro Fuentes on 01-26-2022 Hematocrit (Bld) [Volume fraction] 37.9 % 40-54 [facility] Laboratory - Chemistry and C hemistry - challengeOrdered By: Gennaro Fuentes on 01-26-2022 CO2 [Moles/Vol] 26.0 mmol/L 21.0-32.0 [facility] Urea nitrogen/Creatinine [Mass ratio] 15.1 mg/mg 10-20 [facility] Laboratory - Hematology and Cell countsOrdered By: Gennaro Fuentes on 01-26-2022 Erythrocyte distribution width (RBC) [Entitic vol] 45.7 fL 35.1-43.9 [facility] Erythrocyte distribution width (RBC) [Ratio] 13.5 % 11.6-14.6 [facility] Immature granulocytes/100 WBC (Bld) 0.300 % 0.0-0.9 [facility] Comment on above: IG% - Immature Granu locytes (promyelocytes, myelocytes and metamyelocytes) > 1% indicates that a LEFT SHIFT is Present. MCH (RBC) [Entitic mass] 30.8 pg 27.0-32.0 [facility] Nucleated RBC/100 WBC (Bld) [Ratio] 0 % 0-5 [facility] MCHC Auto (RBC) [Mass/Vol]Or dered By: Gennaro Fuentes on 01-26-2022 MCHC (RBC) [Mass/Vol] 33.5 g/dL 32-36 [facility] No Panel InformationOrdered By: Gennaro Fuentes on 01-26-2022 Estimated GFR (MDRD) Amer 66 mL/min >60 [facility] Comment on above: GFR Calc Estimated GFR (MDRD) Non-Af Amer 55 mL/min >60 [facility] Comment on above: Non- GFR Calc Platelets bldOrdered By: Sean Fuentes on 01-26-2022 Platelets (Bld) [#/Vol] 395 10*3/uL 150-450 [facility] Serum or plasma albumin tiera urement (mass/volume)Ordered By: Gennaro Fuentes on 01-26-2022 Albumin [Mass/Vol] 3.2 g/dL 3.2-5.0 [facility] Serum or plasma calcium tiera urement (mass/volume)Ordered By: Gennaro Fuentes on 01-26-2022 Calcium [Mass/Vol] 9.2 mg/dL 8.5-10.1 [facility] Serum or plasma creatinine m easurement (mass/volume)Ordered By: Gennaro Fuentes on 01-26-2022 Creatinine [Mass/Vol] 1.39 mg/dL 0.70-1.30 [facility] Comment on above: The validity of the calculated GFR & GFRAA in patients over 70 years has not been determined. Clinical correlation is essential. Serum or plasma urea nitroge n measurement (mass/volume)Ordered By: Gennaro Fuentes on 01-26-2022 Urea nitrogen [Mass/Vol] 21 mg/dL 7-18 [facility] Urine creatinine measurement (mass/volume)Ordered By: Gennaro Fuentes on 01-26-2022 Creatinine (U) [Mass/Vol] 39.50 mg/dL NO RANGE EST. [facility] Urine protein measurement (m ass/volume)Ordered By: Gennaro Fuentes on 01-26-2022 Protein (U) [Mass/Vol] 125.0 mg/dL 0.0-11.8 [facility] Urine protein/creatinine mas s ratioOrdered By: Gennaro Fuentes on 01-26-2022 Protein/Creatinine (U) [Mass ratio] 3165 mg/g CRE 0-200 [facility] Basophil percentageon 2021 Bilirubin [Mass/Vol] 0.30 mg/dL 0.20-1.00 [facility] Work Phone: Comment on above: For patients on eltr ombopag therapy, use of Dimension [place] TBIL is not recommended. Chloride [Moles/Vol] 100 mmol/L 98-107 [facility] Work Phone: Glucose [Mass/Vol] 450 mg/dL 74-106 [facility] Work Phone: Comment on above: Glucose result great er than or equal to 200 mg/dLsuggests DIABETES MELLITUS per A.D.A. criteria. Potassium [Moles/Vol] 5.3 mmol/L 3.5-5.1 [facility] Work Phone: Protein [Mass/Vol] 6.9 g/dL 6.4-8.2 [facility] Work Phone: Sodium [Moles/Vol] 133 mmol/L 136-145 [facility] Work Phone: Laboratory - Chemistry and C hemistry - challengeon 01-06-2022 ALP [Catalytic activity/Vol] 149 U/L 45-117 [facility] Work Phone: ALT [Catalytic activity/Vol] 37 U/L 16-61 [facility] Work Phone: CO2 [Moles/Vol] 26.0 mmol/L 21.0-32.0 [facility] Work Phone: Globulin (S) [Mass/Vol] 4.0 g/dL 2.2-4.2 [facility] Work Phone: Urea nitrogen/Creatinine [Mass ratio] 23.8 mg/mg 10-20 [facility] Work Phone: No Panel Informationon 01-06 Estimated GFR (MDRD) Amer 49 mL/min >60 [facility] Work Phone: Comment on above: GFR Calc Estimated GFR (MDRD) Non-Af Amer 40 mL/min >60 [facility] Work Phone: Comment on above: Non- GFR Calc Urine Microalbumin/Creatinine Ratio 757.8 mg/g CRE <30 [facility] Work Phone: Serum or plasma albumin tiera urement (mass/volume)on 01-06-2022 Albumin [Mass/Vol] 2.9 g/dL 3.2-5.0 [facility] Work Phone: Serum or plasma albumin/glob ulin mass ratioon 01-06-2022 Albumin/Globulin [Mass ratio] 0.7 {ratio} 0.9-2.4 [facility] Work Phone: Serum or plasma calcium tiera urement (mass/volume)on 01-06-2022 Calcium [Mass/Vol] 9.0 mg/dL 8.5-10.1 [facility] Work Phone: Serum or plasma creatinine m easurement (mass/volume)on 01-06-2022 Creatinine [Mass/Vol] 1.81 mg/dL 0.70-1.30 [facility] Work Phone: Comment on above: The validity of the calculated GFR & GFRAA in patients over 70 years has not been determined. Clinical correlation is essential. Serum or plasma urea nitroge n measurement (mass/volume)on 01-06-2022 Urea nitrogen [Mass/Vol] 43 mg/dL 7-18 [facility] Work Phone: Thin prep Papanicolaou smear with manual screeningon 01-06-2022 Thin prep Papanicolaou smear with manual screening 18 U/L 15-37 [facility] Work Phone: Thin prep Papanicolaou smear with manual screening 7 5-15 [facility] Work Phone: Thin prep Papanicolaou smear with manual screening 488.0 mg/L NO RANGE EST. [facility] Work Phone: Urine creatinine measurement (mass/volume)on 01-06-2022 Creatinine (U) [Mass/Vol] 64.40 mg/dL NO RANGE EST. [facility] Work Phone: Basophil percentageon 2021 Chloride [Moles/Vol] 98 mmol/L 98-107 [facility] Work Phone: Glucose [Mass/Vol] 300 mg/dL 74-106 [facility] Work Phone: Comment on above: Glucose result great er than or equal to 200 mg/dLsuggests DIABETES MELLITUS per A.D.A. criteria. Potassium [Moles/Vol] 5.2 mmol/L 3.5-5.1 [facility] Work Phone: Sodium [Moles/Vol] 134 mmol/L 136-145 [facility] Work Phone: Laboratory - Chemistry and C hemistry - challengeon 01-01-2022 CO2 [Moles/Vol] 29.0 mmol/L 21.0-32.0 [facility] Work Phone: Urea nitrogen/Creatinine [Mass ratio] 21.7 mg/mg 10-20 [facility] Work Phone: No Panel Informationon 01-01 Estimated GFR (MDRD) Amer 60 mL/min >60 [facility] Work Phone: Comment on above: GFR Calc Estimated GFR (MDRD) Non-Af Amer 50 mL/min >60 [facility] Work Phone: Comment on above: Non- GFR Calc Serum or plasma calcium tiera urement (mass/volume)on 01-01-2022 Calcium [Mass/Vol] 9.3 mg/dL 8.5-10.1 [facility] Work Phone: Serum or plasma creatinine m easurement (mass/volume)on 01-01-2022 Creatinine [Mass/Vol] 1.52 mg/dL 0.70-1.30 [facility] Work Phone: Comment on above: The validity of the calculated GFR & GFRAA in patients over 70 years has not been determined. Clinical correlation is essential. Serum or plasma urea nitroge n measurement (mass/volume)on 01-01-2022 Urea nitrogen [Mass/Vol] 33 mg/dL 7-18 [facility] Work Phone: Thin prep Papanicolaou smear with manual screeningon 01-01-2022 Thin prep Papanicolaou smear with manual screening 7 5-15 [facility] Work Phone: Basophil percentageon 2021 Bilirubin [Mass/Vol] 0.30 mg/dL 0.20-1.00 [facility] Work Phone: Comment on above: For patients on eltr ombopag therapy, use of Dimension [place] TBIL is not recommended. Chloride [Moles/Vol] 102 mmol/L 98-107 [facility] Work Phone: Cholesterol [Mass/Vol] 227 mg/dL <200 [facility] Work Phone: Comment on above: <200 mg/dL Desirable 200-240 mg/dL Borderline >240 mg/dL High Risk Glucose [Mass/Vol] 223 mg/dL 74-106 [facility] Work Phone: Comment on above: Glucose result great er than or equal to 200 mg/dLsuggests DIABETES MELLITUS per A.D.A. criteria. Potassium [Moles/Vol] 5.2 mmol/L 3.5-5.1 [facility] Work Phone: Protein [Mass/Vol] 7.0 g/dL 6.4-8.2 [facility] Work Phone: Sodium [Moles/Vol] 132 mmol/L 136-145 [facility] Work Phone: Triglyceride [Mass/Vol] 98 mg/dL <199 [facility] Work Phone: Comment on above: The drugs N-Acetylcy steine and Metamizole may falsely depress this assay.Serum Triglycerides Reference Interval Normal <150 mg/dL Borderline high 150 - 199 mg/dL High 200 - 499 mg/dL Very High > or = 500 mg/dL Laboratory - Chemistry and C hemistry - challengeon 12-29-2021 ALP [Catalytic activity/Vol] 169 U/L 45-117 [facility] Work Phone: ALT [Catalytic activity/Vol] 53 U/L 16-61 [facility] Work Phone: CO2 [Moles/Vol] 25.0 mmol/L 21.0-32.0 [facility] Work Phone: Globulin (S) [Mass/Vol] 4.0 g/dL 2.2-4.2 [facility] Work Phone: Urea nitrogen/Creatinine [Mass ratio] 15.5 mg/mg 10-20 [facility] Work Phone: No Panel Informationon 12-29 Estimated GFR (MDRD) Amer 56 mL/min >60 [facility] Work Phone: Comment on above: GFR Calc Estimated GFR (MDRD) Non-Af Amer 46 mL/min >60 [facility] Work Phone: Comment on above: Non- GFR Calc Thyroid Stimulating Hormone (TSH) 2.54 uIU/mL 0.358-3.74 [facility] Work Phone: Serum or plasma albumin tiera urement (mass/volume)on 12-29-2021 Albumin [Mass/Vol] 3.0 g/dL 3.2-5.0 [facility] Work Phone: Serum or plasma albumin/glob ulin mass ratioon 12-29-2021 Albumin/Globulin [Mass ratio] 0.8 {ratio} 0.9-2.4 [facility] Work Phone: Serum or plasma calcium tiera urement (mass/volume)on 12-29-2021 Calcium [Mass/Vol] 8.8 mg/dL 8.5-10.1 [facility] Work Phone: Serum or plasma cholesterol in HDL measurement (mass/volume)on 12-29-2021 Cholesterol in HDL [Mass/Vol] 67 mg/dL >40 [facility] Work Phone: Comment on above: The drugs N-Acetylcy steine and Metamizole may falsely depress this assay. Reference Range HDL <40 mg/dL Low HDL Cholesterol HDL >or= 60 mg/dL High HDL Cholesterol Serum or plasma cholesterol in VLDL measurement (mass/volume)on 12-29-2021 Cholesterol in VLDL [Mass/Vol] 20 mg/dL 5-40 [facility] Work Phone: Serum or plasma creatinine m easurement (mass/volume)on 12-29-2021 Creatinine [Mass/Vol] 1.61 mg/dL 0.70-1.30 [facility] Work Phone: Comment on above: The validity of the calculated GFR & GFRAA in patients over 70 years has not been determined. Clinical correlation is essential. Serum or plasma low density lipoprotein (LDL) cholesterol measurement (mass/volume)on 12-29-2021 Cholesterol in LDL [Mass/Vol] 140 mg/dL 0-130 [facility] Work Phone: Serum or plasma urea nitroge n measurement (mass/volume)on 12-29-2021 Urea nitrogen [Mass/Vol] 25 mg/dL 7-18 [facility] Work Phone: Thin prep Papanicolaou smear with manual screeningon 12-29-2021 Thin prep Papanicolaou smear with manual screening 28 U/L 15-37 [facility] Work Phone: Thin prep Papanicolaou smear with manual screening 5 5-15 [facility] Work Phone: Thin prep Papanicolaou smear with manual screening 1640.0 mg/L NO RANGE EST. [facility] Work Phone: Whole blood hemoglobin A1c/t otal hemoglobin ratio (mass fraction)on 12-29-2021 HbA1c (Bld) [Mass fraction] 9.1 % 3.8-5.6 [facility] Work Phone: Comment on above: Normal < 5.7 % Predi abetic 5.7 - 6.4 % Diabetic >or= 6.5 % Please note range changes. Basophil percentageon 2021 Bilirubin [Mass/Vol] 0.30 mg/dL 0.20-1.00 [facility] Work Phone: Comment on above: For patients on eltr ombopag therapy, use of Dimension [place] TBIL is not recommended. Chloride [Moles/Vol] 101 mmol/L 98-107 [facility] Work Phone: Cholesterol [Mass/Vol] 274 mg/dL <200 [facility] Work Phone: Comment on above: <200 mg/dL Desirable 200-240 mg/dL Borderline >240 mg/dL High Risk Glucose [Mass/Vol] 195 mg/dL 74-106 [facility] Work Phone: Comment on above: Fasting Glucose resu lt greater than or equal to 126 mg/dL suggests DIABETES MELLITUS per A.D.A. criteria. Potassium [Moles/Vol] 5.0 mmol/L 3.5-5.1 [facility] Work Phone: Protein [Mass/Vol] 7.0 g/dL 6.4-8.2 [facility] Work Phone: Sodium [Moles/Vol] 136 mmol/L 136-145 [facility] Work Phone: Triglyceride [Mass/Vol] 98 mg/dL <199 [facility] Work Phone: Comment on above: The drugs N-Acetylcy steine and Metamizole may falsely depress this assay.Serum Triglycerides Reference Interval Normal <150 mg/dL Borderline high 150 - 199 mg/dL High 200 - 499 mg/dL Very High > or = 500 mg/dL Laboratory - Chemistry and C hemistry - challengeon 10-30-2021 ALP [Catalytic activity/Vol] 141 U/L 45-117 [facility] Work Phone: ALT [Catalytic activity/Vol] 31 U/L 16-61 [facility] Work Phone: CO2 [Moles/Vol] 29.0 mmol/L 21.0-32.0 [facility] Work Phone: Globulin (S) [Mass/Vol] 4.1 g/dL 2.2-4.2 [facility] Work Phone: Urea nitrogen/Creatinine [Mass ratio] 15.8 mg/mg 10-20 [facility] Work Phone: No Panel Informationon 10-30 Estimated GFR (MDRD) Amer 70 mL/min >60 [facility] Work Phone: Comment on above: GFR Calc Estimated GFR (MDRD) Non-Af Amer 58 mL/min >60 [facility] Work Phone: Comment on above: Non- GFR Calc Thyroid Stimulating Hormone (TSH) 1.07 uIU/mL 0.358-3.74 [facility] Work Phone: Urine Microalbumin/Creatinine Ratio 3362.3 mg/g CRE <30 [facility] Work Phone: Serum or plasma albumin tiera urement (mass/volume)on 10-30-2021 Albumin [Mass/Vol] 2.9 g/dL 3.2-5.0 [facility] Work Phone: Serum or plasma albumin/glob ulin mass ratioon 10-30-2021 Albumin/Globulin [Mass ratio] 0.7 {ratio} 0.9-2.4 [facility] Work Phone: Serum or plasma calcium tiera urement (mass/volume)on 10-30-2021 Calcium [Mass/Vol] 8.5 mg/dL 8.5-10.1 [facility] Work Phone: Serum or plasma cholesterol in HDL measurement (mass/volume)on 10-30-2021 Cholesterol in HDL [Mass/Vol] 63 mg/dL >40 [facility] Work Phone: Comment on above: The drugs N-Acetylcy steine and Metamizole may falsely depress this assay. Reference Range HDL <40 mg/dL Low HDL Cholesterol HDL >or= 60 mg/dL High HDL Cholesterol Serum or plasma cholesterol in VLDL measurement (mass/volume)on 10-30-2021 Cholesterol in VLDL [Mass/Vol] 20 mg/dL 5-40 [facility] Work Phone: Serum or plasma creatinine m easurement (mass/volume)on 10-30-2021 Creatinine [Mass/Vol] 1.33 mg/dL 0.70-1.30 [facility] Work Phone: Comment on above: The validity of the calculated GFR & GFRAA in patients over 70 years has not been determined. Clinical correlation is essential. Serum or plasma low density lipoprotein (LDL) cholesterol measurement (mass/volume)on 10-30-2021 Cholesterol in LDL [Mass/Vol] 191 mg/dL 0-130 [facility] Work Phone: Serum or plasma urea nitroge n measurement (mass/volume)on 10-30-2021 Urea nitrogen [Mass/Vol] 21 mg/dL 7-18 [facility] Work Phone: Thin prep Papanicolaou smear with manual screeningon 10-30-2021 Thin prep Papanicolaou smear with manual screening 21 U/L 15-37 [facility] Work Phone: Thin prep Papanicolaou smear with manual screening 6 5-15 [facility] Work Phone: Thin prep Papanicolaou smear with manual screening 1160.0 mg/L NO RANGE EST. [facility] Work Phone: Urine creatinine measurement (mass/volume)on 10-30-2021 Creatinine (U) [Mass/Vol] 34.50 mg/dL NO RANGE EST. [facility] Work Phone: Whole blood hemoglobin A1c/t otal hemoglobin ratio (mass fraction)on 10-30-2021 HbA1c (Bld) [Mass fraction] 9.4 % 3.8-5.6 [facility] Work Phone: Comment on above: Normal < 5.7 % Predi abetic 5.7 - 6.4 % Diabetic >or= 6.5 % Please note range changes. 24 hour urine alpha 2 globul in/total protein ratio by electrophoresis (mass fraction)on 06-08-2021 Alpha 2 globulin Elph (24H U) [Mass fraction] 5.0 % [facility] Work Phone: 24 hour urine beta globulin/ total protein ratio by electrophoresis (mass fraction)on 06-08-2021 Beta globulin Elph (24H U) [Mass fraction] 12.3 % [facility] Work Phone: 24 hour urine gamma globulin /total protein ratio by electrophoresis (mass fraction)on 06-08-2021 Gamma globulin Elph (24H U) [Mass fraction] 6.8 % [facility] Work Phone: Basophil percentageon 2021 Bilirubin [Mass/Vol] 0.40 mg/dL 0.20-1.00 [facility] Work Phone: Comment on above: For patients on eltr ombopag therapy, use of Dimension [place] TBIL is not recommended. Chloride [Moles/Vol] 101 mmol/L 98-107 [facility] Work Phone: Glucose [Mass/Vol] 110 mg/dL 74-106 [facility] Work Phone: Comment on above: Fasting Glucose resu lt from 100 to 125 mg/dL suggests IMPAIRED HOMEOSTASIS per A.D.A. criteria. Potassium [Moles/Vol] 4.0 mmol/L 3.5-5.1 [facility] Work Phone: Protein [Mass/Vol] 7.5 g/dL 6.4-8.2 [facility] Work Phone: Sodium [Moles/Vol] 134 mmol/L 136-145 [facility] Work Phone: Direct bilirubinon 2 Bilirubin.direct [Mass/Vol] 0.08 mg/dL 0.00-0.30 [facility] Work Phone: Laboratory - Chemistry and C hemistry - challengeon 06-08-2021 Albumin [Mass/Vol] 3.4 g/dL [facility] Work Phone: ALP [Catalytic activity/Vol] 145 U/L 45-117 [facility] Work Phone: ALT [Catalytic activity/Vol] 41 U/L 16-61 [facility] Work Phone: Amylase [Catalytic activity/Vol] 39 U/L 15-85 [facility] Work Phone: CO2 [Moles/Vol] 27.0 mmol/L 21.0-32.0 [facility] Work Phone: Globulin (S) [Mass/Vol] 4.3 g/dL 2.2-4.2 [facility] Work Phone: Urea nitrogen/Creatinine [Mass ratio] 16.8 mg/mg 10-20 [facility] Work Phone: No Panel Informationon 06-08 Addendum Document Comment [facility] Work Phone: Comment on above: The SPE pattern appe ars unremarkable. Evidence ofmonoclonal protein is not apparent. [id number] 0.3 g/dL [facility] Work Phone: [id number] 0.8 g/dL [facility] Work Phone: Anti-Nuclear Antibody Screen Negative Negative [facility] Work Phone: Comment on above: Performed at: [place] [id number] Director: Aaron Lay PhD, Phone: [phone] Estimated GFR (MDRD) Amer 64 mL/min >60 [facility] Work Phone: Comment on above: GFR Calc Estimated GFR (MDRD) Non-Af Amer 53 mL/min >60 [facility] Work Phone: Comment on above: Non- GFR Calc Gamma Globulins 1.1 g/dL [facility] Work Phone: Urine Immunofixation PEP Note Comment [facility] Work Phone: Comment on above: Protein electrophore sis scan will follow via computer,mail, or port warden delivery. Protein Fractions Elph [Inte rp]on 06-08-2021 Protein Fractions [Interp] Comment [facility] Work Phone: Comment on above: Protein electrophore sis scan will follow via computer,mail, or port warden delivery. Serum albumin to globulin ra dwaine by protein electrophoresison 06-08-2021 Albumin/Globulin Elph [Mass ratio] 1.0 [facility] Work Phone: Serum globulin measurement ( mass/volume)on 06-08-2021 Globulin (S) [Mass/Vol] 3.5 g/dL [facility] Work Phone: Serum mitochondria antibody detectionon 06-08-2021 Mitochondria Ab Ql (S) <20.0 Units [facility] Work Phone: Comment on above: Negative 0.0 - 20.0 Equivocal 20.1 - 24.9 Positive >24.9Mitochondrial (M2) Antibodies are found in 90-96% ofpatients with primary biliary cirrhosis. Serum or plasma albumin tiera urement (mass/volume)on 06-08-2021 Albumin [Mass/Vol] 3.2 g/dL 3.2-5.0 [facility] Work Phone: Serum or plasma beta globuli n measurement by electrophoresis (mass/volume)on 06-08-2021 Beta globulin Elph [Mass/Vol] 1.3 g/dL [facility] Work Phone: Serum or plasma bone alkalin e phosphatase/total alkaline phosphatase ratio (catalyticon 06-08-2021 ALP Bone [Catalytic fraction] 28 % [facility] Work Phone: Serum or plasma calcium tiera urement (mass/volume)on 06-08-2021 Calcium [Mass/Vol] 8.7 mg/dL 8.5-10.1 [facility] Work Phone: Serum or plasma creatinine m easurement (mass/volume)on 06-08-2021 Creatinine [Mass/Vol] 1.43 mg/dL 0.70-1.30 [facility] Work Phone: Comment on above: The validity of the calculated GFR & GFRAA in patients over 70 years has not been determined. Clinical correlation is essential. Serum or plasma ferritin rashmi surement (mass/volume)on 06-08-2021 Ferritin [Mass/Vol] 140 ng/mL 26-388 [facility] Work Phone: Serum or plasma intestinal a lkaline phosphatase/total alkaline phosphatase ratio (jabari 06-08-2021 ALP Intest [Catalytic fraction] 30 % [facility] Work Phone: Comment on above: Intestinal alkaline phosphatase is seennormally in the serum of subjects whohave B or O blood types, especiallyafter a fatty meal. Pathologically theband may be present in perforation ofthe bowel, ulcerative disease of theintestine and faintly in livercirrhosis. Acute infarction of theintestine will cause a release ofintestinal ALP from the mucosa. Largeerosive or ulcerative lesions of thestomach, duodenum or other smallintestinal areas, or colon may resultin an elevation of the serum ALP level.The small intestinal lesions associatedwith malabsorption are associated withan elevation of the serum intestinalALP level only if there is an erosiveor ulcerative mucosal lesion.Performed at: [facility] [employer] [id number] Director: Aaron Lay PhD, Phone: [phone] Serum or plasma liver alkali ne phosphatase/total alkaline phosphatase ratio (catalytion 06-08-2021 ALP Liver [Catalytic fraction] 42 % [facility] Work Phone: Serum or plasma urea nitroge n measurement (mass/volume)on 06-08-2021 Urea nitrogen [Mass/Vol] 24 mg/dL 7-18 [facility] Work Phone: Thin prep Papanicolaou smear with manual screeningon 06-08-2021 Thin prep Papanicolaou smear with manual screening 22 U/L 15-37 [facility] Work Phone: Thin prep Papanicolaou smear with manual screening 6 5-15 [facility] Work Phone: Thin prep Papanicolaou smear with manual screening See comment [facility] Work Phone: Comment on above: Result: Not Observed Thin prep Papanicolaou smear with manual screening 151 IU/L [facility] Work Phone: Total protein bloodon 2021 Protein [Mass/Vol] 6.9 g/dL [facility] Work Phone: Urine albumin/total protein mass ratio by electrophoresison 06-08-2021 Albumin Elph (U) [Mass fraction] 71.2 % [facility] Work Phone: Urine alpha 1 globulin/total protein ratio by electrophoresis (mass fraction)on 06-08-2021 Alpha 1 globulin Elph (U) [Mass fraction] 4.7 % [facility] Work Phone: Urine monoclonal protein/tot al protein mass ratio by electrophoresison 06-08-2021 Protein.monoclonal Elph (U) [Mass fraction] See comment [facility] Work Phone: Comment on above: Result: Not Observed Urine protein measurement (m ass/volume)on 06-08-2021 Protein (U) [Mass/Vol] 154.5 mg/dL Not Estab. [facility] Work Phone: 24 hour urine alpha 2 globul in/total protein ratio by electrophoresis (mass fraction)on 04-11-2021 Alpha 2 globulin Elph (24H U) [Mass fraction] 3.6 % [facility] Work Phone: 24 hour urine beta globulin/ total protein ratio by electrophoresis (mass fraction)on 04-11-2021 Beta globulin Elph (24H U) [Mass fraction] 10.8 % [facility] Work Phone: 24 hour urine gamma globulin /total protein ratio by electrophoresis (mass fraction)on 04-11-2021 Gamma globulin Elph (24H U) [Mass fraction] 4.9 % [facility] Work Phone: Basophil percentageon 2021 Bilirubin [Mass/Vol] 0.40 mg/dL 0.20-1.00 [facility] Work Phone: Comment on above: For patients on eltr ombopag therapy, use of Dimension [place] TBIL is not recommended. Chloride [Moles/Vol] 102 mmol/L 98-107 [facility] Work Phone: Glucose [Mass/Vol] 130 mg/dL 74-106 [facility] Work Phone: Comment on above: Fasting Glucose resu lt greater than or equal to 126 mg/dL suggests DIABETES MELLITUS per A.D.A. criteria. Potassium [Moles/Vol] 5.0 mmol/L 3.5-5.1 [facility] Work Phone: Protein [Mass/Vol] 7.1 g/dL 6.4-8.2 [facility] Work Phone: Sodium [Moles/Vol] 136 mmol/L 136-145 [facility] Work Phone: Laboratory - Chemistry and C hemistry - challengeon 04-11-2021 Albumin [Mass/Vol] 3.3 g/dL [facility] Work Phone: ALP [Catalytic activity/Vol] 151 U/L 45-117 [facility] Work Phone: ALT [Catalytic activity/Vol] 27 U/L 16-61 [facility] Work Phone: CO2 [Moles/Vol] 28.0 mmol/L 21.0-32.0 [facility] Work Phone: Globulin (S) [Mass/Vol] 4.2 g/dL 2.2-4.2 [facility] Work Phone: Urea nitrogen/Creatinine [Mass ratio] 16.2 mg/mg 10-20 [facility] Work Phone: No Panel Informationon 04-11 Addendum Document Comment [facility] Work Phone: Comment on above: The SPE pattern appe ars unremarkable. Evidence ofmonoclonal protein is not apparent. [id number]-Voyphozqh 0.2 g/dL [facility] Work Phone: Bluyx-7-Zuxdcioqe 0.8 g/dL [facility] Work Phone: Estimated GFR (MDRD) Amer 65 mL/min >60 [facility] Work Phone: Comment on above: GFR Calc Estimated GFR (MDRD) Non-Af Amer 54 mL/min >60 [facility] Work Phone: Comment on above: Non- GFR Calc Gamma Globulins 1.1 g/dL [facility] Work Phone: Urine Immunofixation PEP Note Comment [facility] Work Phone: Comment on above: Protein electrophore sis scan will follow via computer,mail, or port warden delivery. Protein Fractions Elph [Inte rp]on 04-11-2021 Protein Fractions [Interp] Comment [facility] Work Phone: Comment on above: Protein electrophore sis scan will follow via computer,mail, or port warden delivery. Serum albumin to globulin ra dwaine by protein electrophoresison 04-11-2021 Albumin/Globulin Elph [Mass ratio] 1.0 [facility] Work Phone: Serum globulin measurement ( mass/volume)on 04-11-2021 Globulin (S) [Mass/Vol] 3.4 g/dL [facility] Work Phone: Serum or plasma albumin tiera urement (mass/volume)on 04-11-2021 Albumin [Mass/Vol] 2.9 g/dL 3.2-5.0 [facility] Work Phone: Serum or plasma albumin/glob ulin mass ratioon 04-11-2021 Albumin/Globulin [Mass ratio] 0.7 {ratio} 0.9-2.4 [facility] Work Phone: Serum or plasma beta globuli n measurement by electrophoresis (mass/volume)on 04-11-2021 Beta globulin Elph [Mass/Vol] 1.3 g/dL [facility] Work Phone: Serum or plasma bone alkalin e phosphatase/total alkaline phosphatase ratio (catalyticon 04-11-2021 ALP Bone [Catalytic fraction] 30 % [facility] Work Phone: Serum or plasma calcium tiera urement (mass/volume)on 04-11-2021 Calcium [Mass/Vol] 9.1 mg/dL 8.5-10.1 oste r [facility] Work Phone: Serum or plasma creatinine m easurement (mass/volume)on 04-11-2021 Creatinine [Mass/Vol] 1.42 mg/dL 0.70-1.30 Manning ster [facility] Work Phone: Comment on above: The validity of the calculated GFR & GFRAA in patients over 70 years has not been determined. Clinical correlation is essential. Serum or plasma intestinal a lkaline phosphatase/total alkaline phosphatase ratio (jabari 04-11-2021 ALP Intest [Catalytic fraction] 18 % [facility] Work Phone: Comment on above: Intestinal alkaline phosphatase is seennormally in the serum of subjects whohave B or O blood types, especiallyafter a fatty meal. Pathologically theband may be present in perforation ofthe bowel, ulcerative disease of theintestine and faintly in livercirrhosis. Acute infarction of theintestine will cause a release ofintestinal ALP from the mucosa. Largeerosive or ulcerative lesions of thestomach, duodenum or other smallintestinal areas, or colon may resultin an elevation of the serum ALP level.The small intestinal lesions associatedwith malabsorption are associated withan elevation of the serum intestinalALP level only if there is an erosiveor ulcerative mucosal lesion.Performed at: [address] [id number] Director: Aaron Lay PhD, Phone: [phone] Serum or plasma liver alkali ne phosphatase/total alkaline phosphatase ratio (catalytion 04-11-2021 ALP Liver [Catalytic fraction] 53 % [facility] Work Phone: Serum or plasma urea nitroge n measurement (mass/volume)on 04-11-2021 Urea nitrogen [Mass/Vol] 23 mg/dL 7-18 [facility] Work Phone: Thin prep Papanicolaou smear with manual screeningon 04-11-2021 Thin prep Papanicolaou smear with manual screening 16 U/L 15-37 [facility] Work Phone: Thin prep Papanicolaou smear with manual screening 6 5-15 [facility] Work Phone: Thin prep Papanicolaou smear with manual screening See comment [facility] Work Phone: Comment on above: Result: Not Observed Thin prep Papanicolaou smear with manual screening 150 IU/L [facility] Work Phone: Total protein bloodon 2021 Protein [Mass/Vol] 6.7 g/dL [facility] Work Phone: Urine albumin/total protein mass ratio by electrophoresison 04-11-2021 Albumin Elph (U) [Mass fraction] 74.2 % [facility] Work Phone: Urine alpha 1 globulin/total protein ratio by electrophoresis (mass fraction)on 04-11-2021 Alpha 1 globulin Elph (U) [Mass fraction] 6.6 % [facility] Work Phone: Urine monoclonal protein/tot al protein mass ratio by electrophoresison 04-11-2021 Protein.monoclonal Elph (U) [Mass fraction] See comment [facility] Work Phone: Comment on above: Result: Not Observed Urine protein measurement (m ass/volume)on 04-11-2021 Protein (U) [Mass/Vol] 146.3 mg/dL Not Estab. W [facility] Work Phone: CT CERVICAL SPINE W/O CONTRA STon 11-06-2020 CT CERVICAL SPINE W/O CONTRAST [facility] [address] [place], [place] [id number] Diagnostic Imaging Report : [id number] Signed Name: OLIVIER MENDOZA MRUN: [id number] : 1960 Loc: ED Age / Sex: 59 / M ADM Status: REG ER ADM Date: 11/06/20 Room/Bed: Ordering Physician: Laci Pitts PA-C Procedure: CT CERVICAL SPINE W/O CONTRAST Order Number(s): [id number] Ordered Date: 11/06/20 Ordered Time: 1610 EXAMINATION: CT OF THE CERVICAL SPINE WITHOUT CONTRAST 11/06/2020 5:21 pm TECHNIQUE: CT of the cervical spine was performed without the administration of intravenous contrast. Multiplanar reformatted images are provided for review. Dose modulation, iterative reconstruction, and/or weight based adjustment of the mA/kV was utilized to reduce the radiation dose to as low as reasonably achievable. COMPARISON: None. HISTORY: closed head injury FINDINGS: BONES/ALIGNMENT: There is no acute fracture or traumatic malalignment. DEGENERATIVE CHANGES: There are scattered areas of degenerative disc disease within the cervical spine. There is hypertrophy of the uncovertebral joints on the left at the C3-C4 level causing mild foraminal narrowing. At the C5-C6 level there is significant disc height loss with hypertrophy of the uncovertebral joints bilaterally. This causes mild foraminal narrowing on the right. At the C6-C7 level there is hypertrophy of the uncovertebral joints bilaterally but no significant foraminal narrowing. At the C7-T1 level there is hypertrophy of the uncovertebral joints but no significant foraminal narrowing is observed. SOFT TISSUES: There is no prevertebral soft tissue swelling. There are extensive carotid artery calcifications bilaterally. IMPRESSION: 1. Signs of multilevel degenerative disc disease most advanced at the C5-C6, C6-C7 and C7-T1 levels 2. No signs of an acute radiographic abnormality of the cervical spine 3. Advanced carotid artery calcifications Dictated By: Agus Eugene MD Dictated Date/Time: 11/06/20 1728 Signed By: Agus Eugene MD, MD Signed Date/Time: 11/06/20 1739 Transcribed Date/Time: 11/06/[address] [facility] CT CHEST ABD PELVIS W/O CONo n 11-06-2020 CT CHEST ABD PELVIS W/O [facility] [address] [place] [address] Diagnostic Imaging Report : [id number] Signed [facility]: [id number] MRUN: [id number] : 1960 Loc: ED Age / Sex: 59 / M ADM Status: REG ER ADM Date: 11/06/20 Room/Bed: Ordering Physician: aLci Pitts PA-C Procedure: CT CHEST ABD PELVIS W/O CON Order Number(s): [id number] Ordered Date: 11/06/20 Ordered Time: 1610 EXAMINATION: CT OF THE CHEST, ABDOMEN, AND PELVIS WITHOUT CONTRAST 11/06/2020 5:21 pm TECHNIQUE: CT of the chest, abdomen and pelvis was performed without the administration of intravenous contrast. Multiplanar reformatted images are provided for review. Dose modulation, iterative reconstruction, and/or weight based adjustment of the mA/kV was utilized to reduce the radiation dose to as low as reasonably achievable. COMPARISON: None HISTORY: left sided chest and abdomen pain FINDINGS: Chest: Mediastinum: There is right paratracheal 11 mm lymphadenopathy. Subcentimeter AP window lymph nodes are noted. In the absence of contrast, evaluation for hilar disease is limited technically. The heart does not appear enlarged. There are mild coronary artery calcifications. No significant valvular calcifications are observed. The ascending thoracic aorta measures 3.0 cm that is within the normal range. Lungs/pleura: There are subtle areas of subpleural ground-glass opacity seen in the lingula and left lower lung. These could represent areas of subsegmental atelectasis. No significant consolidation or mass is identified.. No focal consolidation pleural effusion or pneumothorax were observed Soft Tissues/Bones: No acute soft tissue abnormalities are seen. Abdomen/Pelvis: Organs: The liver appears dense. The gallbladder, pancreas spleen and adrenal glands revealed no acute abnormalities. The right kidney appears normal in size shape and position without signs of stones or hydronephrosis. The left kidney reveals a low-density focus extending from its superior pole measuring 26 mm that has appearance of a cyst. No right renal calculi were observed. The ureters appear normal in course and caliber. GI/Bowel: No acute abnormalities of the stomach or proximal small bowel were identified. The small bowel pattern is nonobstructive. The area of the terminal ileum cecum and appendix revealed no acute abnormalities. There is a moderate volume of retained fecal material within the colon. There are scattered sigmoid diverticula but no signs of diverticulitis. Pelvis: The prostate gland does not appear enlarged. The urinary bladder reveals normal rounded contour without focal wall thickening stones or diverticula. It measures approximately 3.8 cm in transverse diameter only. There are no signs of significant lymphadenopathy or ascites within the pelvis. Peritoneum/Retroper itoneum: There are no signs of retroperitoneal lymphadenopathy, aneurysm or hemorrhage. Bones/Soft Tissues: the thoracic and lumbar spine appear within normal range. No compression fractures are identified. IMPRESSION: 1. Mild coronary artery calcifications 2. Minimal left basilar linear densities within the lungs that suggest discoid atelectasis. 3. Sigmoid diverticulosis without signs of diverticulitis 4. No signs of urolithiasis or obstructive uropathy. Dictated By: Agus Eugene MD Dictated Date/Time: 11/06/20 1746 Signed By: Agus Eugene MD, MD Signed Date/Time: 11/06/20 1758 Transcribed Date/Time: 11/06/[address] [facility] CT HEAD W/O CONTRASTon 11-06 CT HEAD W/O CONTRAST [facility] [address] [place] [address] Diagnostic Imaging Report : [id number] Signed [facility]: [id number] MRUN: [id number] : 1960 Loc: ED Age / Sex: 59 / M ADM Status: REG ER ADM Date: 11/06/20 Room/Bed: Ordering Physician: Laci Pitts PA-C Procedure: CT HEAD W/O CONTRAST Order Number(s): [id number] Ordered Date: 11/06/20 Ordered Time: 161 EXAMINATION: CT OF THE HEAD WITHOUT CONTRAST 11/06/2020 5:21 pm TECHNIQUE: CT of the head was performed without the administration of intravenous contrast. Dose modulation, iterative reconstruction, and/or weight based adjustment of the mA/kV was utilized to reduce the radiation dose to as low as reasonably achievable. COMPARISON: None. HISTORY: closed head injury FINDINGS: BRAIN/VENTRICLES: There is no acute intracranial hemorrhage, mass effect or midline shift. No abnormal extra-axial fluid collection. The bello-white differentiation is maintained without evidence of an acute infarct. There is no evidence of hydrocephalus. ORBITS: The visualized portion of the orbits demonstrate no acute abnormality. SINUSES: The visualized paranasal sinuses reveal air-fluid levels within the frontal sinuses bilaterally. There is partial opacification of multiple ethmoid air cells. There is also mucosal thickening within the maxillary and sphenoid sinuses bilaterally suggests chronic sinusitis. There are postoperative changes involving the left mastoid air cells suggestive of antrostomy. SOFT TISSUES/SKULL: No acute abnormality of the visualized skull or soft tissues. IMPRESSION: 1. No acute intracranial abnormality. 2. Acute appearing bilateral frontal sinusitis 3. Chronic appearing bilateral maxillary, ethmoid and sphenoid sinusitis. Dictated By: Agus Eugene MD Dictated Date/Time: 11/06/20 172 Signed By: Agus Eugene MD, MD Signed Date/Time: 11/06/20 173 Transcribed Date/Time: 11/06/[address] [facility] ED Physician Documentationon 11-06-2020 ED Physician Documentation [address] [place] [address] Physician Documentation Signed: Name: OLIVIER MENDOZA MRUN: [id number] : 1960 Loc: ED Age / Sex: 59/ M Adm Status: REG ER Adm Date:11/06/20 Room/Bed: Disposition Decision - General Final diagnosis: Fall at home Qualifiers: Encounter type: initial encounter Qualified Code(s): W19.XXXA - Unspecified fall, initial encounter; Y92.009 - Unspec ified place in unspecified non-institutional (private) residence as the place of occurrence of the external cause Contusion of rib on left side Qualifiers: Encounter type: initial encounter Qualified Code(s): S20.212A - Contusion of left front wall of thorax, initial encounter Contusion of left leg Qualifiers: Encounter type: initial encounter Qualified Code(s): S80.12XA - Contusion of left lower leg, initial encounter Condition: Good Instructions: ED Contusion, Rib, ED Contusion, Lower Extremity Referrals: [facility] [Provider Group] - Call For An Appointment HPI: Fall Complaint - Time Seen by Provider Time Seen by Provider: 11/06/20 15:50 - General Information Information source:: Patient - History of Present Illness Chief complaint: Fall Injury Initial narrative: This is a 59-year-old male who presents emergency department today with a chief complaint of a fall from a 10 foot loft. States that she was putting lacquer on in his cabin. he fell on his left side has tenderness to his left chest wall and left upper quadrant abdominal region. With some small bruising noted to this region. He also has an abrasion to his forehead reports a mild headache. Denies cervical thoracic or lumbar spinal tenderness. Has no tenderness to his upper extremities bilaterally. Does report some tenderness to his left knee and mid femur. - Allergies Allergies/Adverse reactions: Allergies Allergy/AdvReac Type Severity Reaction Status Date / Time adhesive tape AdvReac Intermediate Unknown Verified 11/06/20 16:02 Past Medical History Past EENT history: Negative Past neurological history: Negative Past cardiovascular history: Negative Past respiratory history: Negative Past gastrointestinal history: Negative Past genitourinary history: Negative Past musculoskeletal history: Negative Past endocrine history: Negative Hemotologic: Negative Psychiatric: Negative - Social History Smoking status: Never Smoker Current tobacco user or use within the last year?: No Alcohol use- current or past use: Yes Type of alcohol used: Beer Substance abuse - current or past: No Review of Systems Constitutional: No Symptoms Reported. denies: Chills, Fever Eyes: No Symptoms Reported ENT: No Symptoms Reported. denies: Congestion, Ear Pain, Throat Pain Respiratory: No Symptoms Reported. denies: Cough, Stridor, Wheezing Cardiovascular: No Symptoms Reported. denies: Chest Pain, Palpitations, Syncope Endocrine: No Symptoms Reported Gastrointestinal: Abdominal Pain. denies: Nausea, Vomiting Genitourinary: No Symptoms Reported. denies: Discharge, Dysuria Musculoskeletal: Back Pain - left lateral chest and abdomen Skin: No Symptoms Reported Neurological: Headache. denies: Numbness, Paresthesias Psychiatric: No Symptoms Reported .: All 10 Systems Reviewed Negative Unless Otherwise Stated in the HPI .: I have reviewed available Ancillary/Nursing Staff documentation. General Exam - General General appearance: Present: Well Appearing, Well Nourished - Head Head exam: Present: Atraumatic, Normocephalic - Eye Eye exam: Present: Normal Appearance, EOMI Pupils: Present: PERRL - ENT ENT exam: Present: Normal Exam, Normal Oropharynx, Mucous Membranes Moist, TM's Normal Bilaterally - Neck Neck exam: Present: Normal Inspection. Absent: Lymphadenopathy, Tenderness - Respiratory Respiratory exam: Present: Normal Lung Sounds Bilaterally, Respirations Regular and Easy. Absent: Use of Accessory Muscles - Cardiovascular Cardiovascular exam: Present: Normal Heart Sounds, Normal Rhythm, Regular Rate - GI/Abdominal GI/Abdominal Exam: Present: Normal Bowel Sounds, Soft, Tenderness - to left abdomen - Extremities Exam Extremities exam: Present: Normal Capillary Refill, Full ROM. Absent: Pedal Edema - Back/Chest Exam Chest/Back exam: Present: Chest Wall Tenderness - to left lateral chest - Neurological Exam Neurological exam: Present: Alert, Awake, Oriented X3, CN II-XII Intact. Absent: Motor Sensory Deficit - Psychiatric Psychiatric exam: Present: Normal Affect - Integumentary Skin exam: Present: Warm. Absent: Rash MDM: Fall Injury - Medical Decision Making Narrative: MDM plan of care: patients chemistries where cancelled however he has no acute findings CT of his head cervical spine chest abdomen or left femur on imaging studies. Patient repo (more content not included)... Normal [facility] LIPASEon 11-06-2020 Lipase [Catalytic activity/Vol] 29 U/L Normal 23-300 [facility] Comment on above: Performed By: #### L IPA 1, PT, PTT #### Main Lab - [facility] [address] [place] [address] PARTIAL THROMBOPLASTIN TIMEo n 11-06-2020 aPTT Coag (Bld) [Time] 24.8 s Normal 24.1-41.2 [facility] Comment on above: Performed By: #### L IPA 1, PT, PTT #### Main Lab - [facility] [address] [place] [address] PT WITH INRon 11-06-2020 INR Coag (PPP) [Relative time] 1.0 {INR} Normal [facility] Comment on above: Result Comment: DYANA MMENDED RANGES FOR INR: Therapeutic range for standard therapy INR: 2.0-3.0 Therapeutic range for high dose therapy INR: 2.5-3.5 Performed By: #### L IPA 1, PT, PTT #### Main Lab - [facility] [place], [place] [address] PT Coag (PPP) [Time] 13.1 s Normal 11.3-14.8 [facility] Comment on above: Performed By: #### L IPA 1, PT, PTT #### Main Lab - [facility] [address] [place] [address] Waveform Imaging Reporton Waveform Imaging Report [facility] [address] [place] [id number] Waveform Imaging Report : [id number] Signed Name: OLIVIER MENDOZA MRUN: [id number] : 1960 Loc: ED Age / Sex: 59 / M ADM Status: REG ER ADM Date: 11/06/20 Room/Bed: Ordering Physician: Laci Pitts PA-C Procedure: EKG Order Number(s): [id number] Ordered Date: 11/06/20 Ordered Time: 1611 Test Date: 2020-11-06 16:24:52 Pat Name: OLIVIER MENDOZA Department: ED Room: 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 Electronically Signed On 11-06-2020 17:43:34 EDT by Darryl Chen Dictated By: Darryl Chen DO Dictated Date/Time: 11/06/20 162 Signed By: Darryl Chen Signed Date/Time: 11/06/20 1744 Transcribed Date/Time: Normal [facility] XR FEMUR, LEFTon 11-06-2020 XR FEMUR, LEFT [facility] [address] [place] [id number] Diagnostic Imaging Report : [id number] Signed Name: OLIVIER MENDOZA MRUN: [id number] : 1960 Loc: ED Age / Sex: 59 / M ADM Status: REG ER ADM Date: 11/06/20 Room/Bed: Ordering Physician: Laci Pitts PA-C Procedure: XR FEMUR, LEFT Order Number(s): [id number] Ordered Date: 11/06/20 Ordered Time: 1613 EXAMINATION: TWO XRAY VIEWS OF THE LEFT FEMUR 11/06/2020 5:24 pm COMPARISON: None. HISTORY: left leg pain FINDINGS: Images of left femur reveals no signs of fracture or dislocation. There was preservation of hip as well as knee joint space and alignment. Arterial vascular calcifications are observed. IMPRESSION: No signs of fracture or dislocation Dictated By: Agus Eugene MD Dictated Date/Time: 11/06/20 173 Signed By: Agus Eugene MD, MD Signed Date/Time: 11/06/20 174 Transcribed Date/Time: 11/06/[address] [facility] Vital Signs Date Time Vital Sign Value Performing Clinician [facility] 12-17-2024 14:41-0400 Body height 170.[address] Sherice Avendano MD Work Phone: [facility] 12-17-2024 14:41-0400 Body mass index (BMI) [Ratio] 25.9 kg/m2 Dr. Sherice Avenadno MD Work Phone: [facility] 12-17-2024 14:41-0400 Body temperature 98.2 [degF] Dr. Sherice Avendano MD Work Phone: [facility] 12-17-2024 14:41-0400 Body weight 75.[address] Sherice Avendano MD Work Phone: [facility] 12-17-2024 14:41-0400 Diastolic blood pressure 100 mm[Hg] Dr. Sherice Avendano MD Work Phone: [facility] 12-17-2024 14:41-0400 Heart rate 81 /min Dr. Sherice Avendano MD Work Phone: [facility] 12-17-2024 14:41-0400 Respiratory rate 16 /min Dr. Sherice Avendano MD Work Phone: [facility] 12-17-2024 14:41-0400 SaO2% (BldA) [Mass fraction] 93 % Dr. Sherice Avendano MD Work Phone: [facility] 12-17-2024 14:41-0400 Systolic blood pressure 168 mm[Hg] Dr. Sherice Avendano MD Work Phone: [facility] 11-26-2024 10:04-0400 Body height 170.[address] Sherice Avendano MD Work Phone: [facility] 11-26-2024 10:03-0400 Body mass index (BMI) [Ratio] 25.3 kg/m2 Dr. Sherice Avendano MD Work Phone: [facility] 11-26-2024 10:03-0400 Body weight 73.[address] Sherice Avendano MD Work Phone: [facility] 11-26-2024 10:03-0400 Diastolic blood pressure 74 mm[Hg] Dr. Sherice Avendano MD Work Phone: [facility] 11-26-2024 10:03-0400 Heart rate 45 /min Dr. Sherice Avendano MD Work Phone: [facility] 11-26-2024 10:03-0400 Respiratory rate 16 /min Dr. Sherice Avendano MD Work Phone: [facility] 11-26-2024 10:03-0400 SaO2% (BldA) [Mass fraction] 98 % Dr. Sherice Avendano MD Work Phone: [facility] 11-26-2024 10:03-0400 Systolic blood pressure 152 mm[Hg] Dr. Sherice Avendano MD Work Phone: [facility] 10-28-2024 09:40-0400 Body height 170.[address] Sherice Avendano MD Work Phone: [facility] 10-28-2024 09:40-0400 Body mass index (BMI) [Ratio] 25.2 kg/m2 Dr. Sherice Avendano MD Work Phone: [facility] 10-28-2024 09:40-0400 Body temperature 96.3 [degF] Dr. Sherice Avendano MD Work Phone: [facility] 10-28-2024 09:40-0400 Body weight 73.[address] Sherice Avendano MD Work Phone: [facility] 10-28-2024 09:40-0400 Diastolic blood pressure 80 mm[Hg] Dr. Sherice Avendano MD Work Phone: [facility] 10-28-2024 09:40-0400 Heart rate 62 /min Dr. Sherice Avendano MD Work Phone: [facility] 10-28-2024 09:40-0400 Respiratory rate 16 /min Dr. Sherice Avenadno MD Work Phone: [facility] 10-28-2024 09:40-0400 SaO2% (BldA) [Mass fraction] 99 % Dr. Sherice Avendano MD Work Phone: [facility] 10-28-2024 09:40-0400 Systolic blood pressure 146 mm[Hg] Dr. Sherice Avendano MD Work Phone: [facility] 08-26-2024 09:35-0400 Diastolic blood pressure 103 mm[Hg] Dr. Sherice Avendano MD Work Phone: [facility] 08-26-2024 09:35-0400 Heart rate 56 /min Dr. Sherice Avendano MD Work Phone: [facility] 08-26-2024 09:35-0400 Systolic blood pressure 224 mm[Hg] Dr. Sherice Avendano MD Work Phone: [facility] 08-26-2024 09:35-0400 SaO2% (BldA) [Mass fraction] 97 % Dr. Sherice Avendano MD Work Phone: [facility] 08-26-2024 09:11-0400 Body height 170.[address] Sherice Avendano MD Work Phone: [facility] 08-26-2024 09:11-0400 Body mass index (BMI) [Ratio] 25.8 kg/m2 Dr. Sherice Avendano MD Work Phone: [facility] 08-26-2024 09:11-0400 Body weight 74.[address] Sherice Avendano MD Work Phone: [facility] 08-26-2024 09:11-0400 Respiratory rate 16 /min Dr. Sherice Avendano MD Work Phone: [facility] 08-20-2024 11:06-0400 Body height 170.[address] Sherice Avendano MD Work Phone: [facility] 08-20-2024 11:06-0400 Body mass index (BMI) [Ratio] 26.4 kg/m2 Dr. Sherice Avendano MD Work Phone: [facility] 08-20-2024 11:06-0400 Body temperature 97.7 [degF] Dr. Sherice Avendano MD Work Phone: [facility] 08-20-2024 11:06-0400 Body weight 76.[address] Sherice Avendano MD Work Phone: [facility] 08-20-2024 11:06-0400 Diastolic blood pressure 100 mm[Hg] Dr. Sherice Avendano MD Work Phone: [facility] 08-20-2024 11:06-0400 Heart rate 65 /min Dr. Sherice Avendano MD Work Phone: [facility] 08-20-2024 11:06-0400 Respiratory rate 18 /min Dr. Sherice Avendano MD Work Phone: [facility] 08-20-2024 11:06-0400 SaO2% (BldA) [Mass fraction] 98 % Dr. Sherice Avendano MD Work Phone: [facility] 08-20-2024 11:06-0400 Systolic blood pressure 188 mm[Hg] Dr. Sherice Avendano MD Work Phone: [facility] 08-04-2024 17:39-0400 Body temperature 97.8 [degF] Dr. Sherice Avendano MD Work Phone: [facility] 08-04-2024 17:39-0400 Diastolic blood pressure 74 mm[Hg] Dr. Sherice Avendano MD Work Phone: [facility] 08-04-2024 17:39-0400 Heart rate 59 /min Dr. Sherice Avendano MD Work Phone: [facility] 08-04-2024 17:39-0400 Respiratory rate 21 /min Dr. Sherice Avendano MD Work Phone: [facility] 08-04-2024 17:39-0400 SaO2% (BldA) [Mass fraction] 99 % Dr. Sherice Avendano MD Work Phone: [facility] 08-04-2024 17:39-0400 Systolic blood pressure 151 mm[Hg] Dr. Sherice Avendano MD Work Phone: [facility] 08-04-2024 13:41-0400 Body height 170.[address] Sherice Avendano MD Work Phone: [facility] 08-04-2024 13:41-0400 Body mass index (BMI) [Ratio] 27 kg/m2 Dr. Sherice Avendano MD Work Phone: [facility] 08-04-2024 13:41-0400 Body weight 78.[address] Sherice Avendano MD Work Phone: [facility] 05-19-2024 09:21-0400 Body mass index (BMI) [Ratio] 27.6 kg/m2 Gennaro Fuentes CAN TENDER-C Work Phone: [facility] 05-19-2024 09:21-0400 Body weight 79.83 kg Gennaro Fuentes CAN TENDER-C Work Phone: [facility] 05-19-2024 09:21-0400 Diastolic blood pressure 99 mm[Hg] Gennaro Fuentes CAN TENDER-C Work Phone: [facility] 05-19-2024 09:21-0400 Heart rate 70 /min Gennaro Fuentes CAN TENDER-C Work Phone: [facility] 05-19-2024 09:21-0400 Respiratory rate 18 /min Gennaro Fuentes CAN TENDER-C Work Phone: [facility] 05-19-2024 09:21-0400 SaO2% (BldA) [Mass fraction] 98 % Gennaro Fuentes CAN TENDER-C Work Phone: [facility] 05-19-2024 09:21-0400 Systolic blood pressure 198 mm[Hg] Gennaro Fuentes CAN TENDER-C Work Phone: [facility] 05-07-2024 13:35-0500 Body height 170.18 cm Gennaro Fuentes CAN TENDER-C Work Phone: [facility] 05-07-2024 13:35-0500 Body mass index (BMI) [Ratio] 28 kg/m2 Gennaro Fuentes CAN TENDER-C Work Phone: [facility] 05-07-2024 13:35-0500 Body temperature 97.3 [degF] Gennaro Fuentes CAN TENDER-C Work Phone: [facility] 05-07-2024 13:35-0500 Body weight 81.19 kg Gennaro Fuentes CAN TENDER-C Work Phone: [facility] 05-07-2024 13:35-0500 Diastolic blood pressure 84 mm[Hg] Gennaro Fuentes CAN TENDER-C Work Phone: [facility] 05-07-2024 13:35-0500 Heart rate 77 /min Gennaro Fuentes CAN TENDER-C Work Phone: [facility] 05-07-2024 13:35-0500 Respiratory rate 16 /min Gennaro Fuentes CAN TENDER-C Work Phone: [facility] 05-07-2024 13:35-0500 SaO2% (BldA) [Mass fraction] 99 % Gennaro Fuentes CAN TENDER-C Work Phone: [facility] 05-07-2024 13:35-0500 Systolic blood pressure 138 mm[Hg] Gennaro Fuentes CAN TENDER-C Work Phone: [facility] 03-11-2024 14:19-0500 Body mass index (BMI) [Ratio] 28.3 kg/m2 Gennaro Fuentes CAN TENDER-C Work Phone: [facility] 03-11-2024 14:19-0500 Body weight 82.1 kg Gennaro Fuentes CAN TENDER-C Work Phone: [facility] 03-11-2024 14:19-0500 Diastolic blood pressure 103 mm[Hg] Gennaro Fuentes CAN TENDER-C Work Phone: [facility] 03-11-2024 14:19-0500 Heart rate 66 /min Gennaro Fuentes CAN TENDER-C Work Phone: [facility] 03-11-2024 14:19-0500 Respiratory rate 18 /min Gennaro Fuentes CAN TENDER-C Work Phone: [facility] 03-11-2024 14:19-0500 SaO2% (BldA) [Mass fraction] 99 % Gennaro Fuentes CAN TENDER-C Work Phone: [facility] 03-11-2024 14:19-0500 Systolic blood pressure 191 mm[Hg] Gennaro Fuentes CAN TENDER-C Work Phone: [facility] 05-22-2023 09:20-0400 Body height 170.[address] Sherice Avendano Work Phone: [facility] 05-22-2023 09:20-0400 Body mass index (BMI) [Ratio] 27.8 kg/m2 Dr. Sherice Avendano Work Phone: [facility] 05-22-2023 09:20-0400 Body temperature 97.6 [degF] Dr. Sherice Avendano Work Phone: [facility] 05-22-2023 09:20-0400 Body weight 80.[address] Sherice Avendano Work Phone: [facility] 05-22-2023 09:20-0400 Diastolic blood pressure 76 mm[Hg] Dr. Sherice Avendano Work Phone: [facility] 05-22-2023 09:20-0400 Heart rate 77 /min Dr. Sherice Avendano Work Phone: [facility] 05-22-2023 09:20-0400 Respiratory rate 16 /min Dr. Sherice Avendano Work Phone: [facility] 05-22-2023 09:20-0400 SaO2% (BldA) [Mass fraction] 98 % Dr. Sherice Avendano Work Phone: [facility] 05-22-2023 09:20-0400 Systolic blood pressure 126 mm[Hg] Dr. Sherice Avendano Work Phone: [facility] 05-01-2023 08:06-0500 Body height 170.[address] Sherice Avendano Work Phone: [facility] 05-01-2023 08:06-0500 Body mass index (BMI) [Ratio] 27.3 kg/m2 Dr. Sherice Avendano Work Phone: [facility] 05-01-2023 08:06-0500 Body temperature 97.5 [degF] Dr. Sherice Avendano Work Phone: [facility] 05-01-2023 08:06-0500 Body weight 79.[address] Sherice Avendano Work Phone: [facility] 05-01-2023 08:06-0500 Diastolic blood pressure 78 mm[Hg] Dr. Sherice Avendano Work Phone: [facility] 05-01-2023 08:06-0500 Heart rate 64 /min Dr. Sherice Avendano Work Phone: [facility] 05-01-2023 08:06-0500 Respiratory rate 16 /min Dr. Sherice Avendano Work Phone: [facility] 05-01-2023 08:06-0500 SaO2% (BldA) [Mass fraction] 97 % Dr. Sherice Avendano Work Phone: [facility] 05-01-2023 08:06-0500 Systolic blood pressure 122 mm[Hg] Dr. Sherice Avendano Work Phone: [facility] 04-24-2023 10:04-0500 Body height 170.[address] Sherice Avendano Work Phone: [facility] 04-24-2023 10:04-0500 Body mass index (BMI) [Ratio] 28.3 kg/m2 Dr. Sherice Avendano Work Phone: [facility] 04-24-2023 10:04-0500 Body temperature 97.8 [degF] Dr. Sherice Avendano Work Phone: [facility] 04-24-2023 10:04-0500 Body weight 82.[address] Sherice Avendano Work Phone: [facility] 04-24-2023 10:04-0500 Diastolic blood pressure 76 mm[Hg] Dr. Sherice Avendano Work Phone: [facility] 04-24-2023 10:04-0500 Heart rate 50 /min Dr. Sherice Avendano Work Phone: [facility] 04-24-2023 10:04-0500 Respiratory rate 16 /min Dr. Sherice Avendano Work Phone: [facility] 04-24-2023 10:04-0500 SaO2% (BldA) [Mass fraction] 98 % Dr. Sherice Avendano Work Phone: [facility] 04-24-2023 10:04-0500 Systolic blood pressure 136 mm[Hg] Dr. Sherice Avendano Work Phone: [facility] 04-21-2023 09:26-0500 Body mass index (BMI) [Ratio] 28.8 kg/m2 Dr. Sherice Avendano Work Phone: [facility] 04-21-2023 09:26-0500 Body temperature 98 [degF] Dr. Sherice Avendano Work Phone: [facility] 04-21-2023 09:26-0500 Body weight 83.[address] Sherice Avendano Work Phone: [facility] 04-21-2023 09:26-0500 Diastolic blood pressure 72 mm[Hg] Dr. Sherice Avendano Work Phone: [facility] 04-21-2023 09:26-0500 Heart rate 78 /min Dr. Sherice Avendano Work Phone: [facility] 04-21-2023 09:26-0500 Respiratory rate 17 /min Dr. Sherice Avendano Work Phone: [facility] 04-21-2023 09:26-0500 SaO2% (BldA) [Mass fraction] 98 % Dr. Sherice Avendano Work Phone: [facility] 04-21-2023 09:26-0500 Systolic blood pressure 152 mm[Hg] Dr. Sherice Avendano Work Phone: [facility] 04-01-2023 10:43-0500 Body height 170.[address] Sherice Avendano Work Phone: [facility] 04-01-2023 10:43-0500 Body mass index (BMI) [Ratio] 28.3 kg/m2 Dr. Sherice Avendano Work Phone: [facility] 04-01-2023 10:43-0500 Body temperature 97.4 [degF] Dr. Sherice Avendano Work Phone: [facility] 04-01-2023 10:43-0500 Body weight 82.[address] Sherice Avendano Work Phone: [facility] 04-01-2023 10:43-0500 Diastolic blood pressure 76 mm[Hg] Dr. Sheirce Avendano Work Phone: [facility] 04-01-2023 10:43-0500 Heart rate 64 /min Dr. Sherice Avendano Work Phone: [facility] 04-01-2023 10:43-0500 Respiratory rate 16 /min Dr. Sherice Avendano Work Phone: [facility] 04-01-2023 10:43-0500 SaO2% (BldA) [Mass fraction] 98 % Dr. Sherice Avendano Work Phone: [facility] 04-01-2023 10:43-0500 Systolic blood pressure 124 mm[Hg] Dr. Sherice Avendano Work Phone: [facility] 02-19-2023 08:37-0500 Body temperature 98.4 [degF] Dr. Sherice Avendano Work Phone: [facility] 02-19-2023 08:37-0500 Body weight 79.[address] Sherice Avendano Work Phone: [facility] 02-19-2023 08:37-0500 Diastolic blood pressure 92 mm[Hg] Dr. Sherice Avendano Work Phone: [facility] 02-19-2023 08:37-0500 Heart rate 79 /min Dr. Sherice Avendano Work Phone: [facility] 02-19-2023 08:37-0500 Respiratory rate 16 /min Dr. Sherice Avendano Work Phone: [facility] 02-19-2023 08:37-0500 SaO2% (BldA) [Mass fraction] 94 % Dr. Sherice Avendano Work Phone: [facility] 02-19-2023 08:37-0500 Systolic blood pressure 176 mm[Hg] Dr. Sherice Avendano Work Phone: [facility] 12-26-2022 09:27-0400 Body temperature 98.7 [degF] Dr. Sherice Avendano Work Phone: [facility] 12-26-2022 09:27-0400 Diastolic blood pressure 72 mm[Hg] Dr. Sherice Avendano Work Phone: [facility] 12-26-2022 09:27-0400 Heart rate 68 /min Dr. Sherice Avendano Work Phone: [facility] 12-26-2022 09:27-0400 Respiratory rate 17 /min Dr. Sherice Avendano Work Phone: [facility] 12-26-2022 09:27-0400 SaO2% (BldA) [Mass fraction] 97 % Dr. Sherice Avendano Work Phone: [facility] 12-26-2022 09:27-0400 Systolic blood pressure 145 mm[Hg] Dr. Sherice Avendano Work Phone: [facility] 11-07-2022 15:05-0400 Body temperature 98.4 [degF] Dr. Sherice Avendano Work Phone: [facility] 11-07-2022 15:05-0400 Diastolic blood pressure 78 mm[Hg] Dr. Sherice Avendano Work Phone: [facility] 11-07-2022 15:05-0400 Heart rate 47 /min Dr. Sherice Avendano Work Phone: [facility] 11-07-2022 15:05-0400 Respiratory rate 16 /min Dr. Sherice Avendano Work Phone: [facility] 11-07-2022 15:05-0400 SaO2% (BldA) [Mass fraction] 96 % Dr. Sherice Avendano Work Phone: [facility] 11-07-2022 15:05-0400 Systolic blood pressure 130 mm[Hg] Dr. Sherice Avendano Work Phone: [facility] 08-27-2022 08:57-0400 Body height 170.[address] Sherice Avendano Work Phone: [facility] 08-27-2022 08:57-0400 Body mass index (BMI) [Ratio] 27.1 kg/m2 Dr. Sherice Avendano Work Phone: [facility] 08-27-2022 08:57-0400 Body weight 78.[address] Sherice Avendano Work Phone: [facility] 08-27-2022 08:57-0400 Diastolic blood pressure 64 mm[Hg] Dr. Sherice Avendano Work Phone: [facility] 08-27-2022 08:57-0400 Heart rate 56 /min Dr. Sherice Avendano Work Phone: [facility] 08-27-2022 08:57-0400 Respiratory rate 16 /min Dr. Sherice Avendano Work Phone: [facility] 08-27-2022 08:57-0400 Systolic blood pressure 124 mm[Hg] Dr. Sherice Avendano Work Phone: [facility] 08-15-2022 10:02-0400 Body mass index (BMI) [Ratio] 27.3 kg/m2 Dr. Sherice Avendano Work Phone: [facility] 08-15-2022 10:02-0400 Body temperature 96.4 [degF] Dr. Sherice Avendano Work Phone: [facility] 08-15-2022 10:02-0400 Body weight 79.[address] Sherice Avendano Work Phone: [facility] 08-15-2022 10:02-0400 Diastolic blood pressure 64 mm[Hg] Dr. Sherice Avendano Work Phone: [facility] 08-15-2022 10:02-0400 Heart rate 54 /min Dr. Sherice Avendano Work Phone: [facility] 08-15-2022 10:02-0400 Respiratory rate 18 /min Dr. Sherice Avendano Work Phone: [facility] 08-15-2022 10:02-0400 SaO2% (BldA) [Mass fraction] 98 % Dr. Sherice Avendano Work Phone: [facility] 08-15-2022 10:02-0400 Systolic blood pressure 122 mm[Hg] Dr. Sherice Avendano Work Phone: [facility] 03-01-2022 08:56-0500 Body height 170.[address] Sherice Avendano Work Phone: [facility] 03-01-2022 08:56-0500 Body mass index (BMI) [Ratio] 27.1 kg/m2 Dr. Sherice Avendano Work Phone: [facility] 03-01-2022 08:56-0500 Body temperature 97 [degF] Dr. Sherice Avendano Work Phone: [facility] 03-01-2022 08:56-0500 Body weight 78.[address] Sherice Avendano Work Phone: [facility] 03-01-2022 08:56-0500 Diastolic blood pressure 82 mm[Hg] Dr. Sherice Avendano Work Phone: [facility] 03-01-2022 08:56-0500 Heart rate 76 /min Dr. Sherice Avendano Work Phone: [facility] 03-01-2022 08:56-0500 Respiratory rate 16 /min Dr. Sherice Avendano Work Phone: [facility] 03-01-2022 08:56-0500 SaO2% (BldA) [Mass fraction] 99 % Dr. Sherice Avendano Work Phone: [facility] 03-01-2022 08:56-0500 Systolic blood pressure 140 mm[Hg] Dr. Sherice Avendano Work Phone: [facility] 02-27-2022 08:26-0500 Body mass index (BMI) [Ratio] 27.1 kg/m2 Dr. Sherice Avendano Work Phone: [facility] 02-27-2022 08:26-0500 Body weight 78.[address] Sherice Avendano Work Phone: [facility] 02-27-2022 08:26-0500 Diastolic blood pressure 80 mm[Hg] Dr. Sherice Aevndano Work Phone: [facility] 02-27-2022 08:26-0500 Heart rate 41 /min Dr. Sherice Avendano Work Phone: [facility] 02-27-2022 08:26-0500 Respiratory rate 18 /min Dr. Sherice Avendano Work Phone: [facility] 02-27-2022 08:26-0500 SaO2% (BldA) [Mass fraction] 10 % Dr. Sherice Avendano Work Phone: [facility] 02-27-2022 08:26-0500 Systolic blood pressure 130 mm[Hg] Dr. Sherice Avendano Work Phone: [facility] 02-15-2022 13:04-0500 Body temperature 97.3 [degF] Dr. Sherice Avendano Work Phone: [facility] 02-15-2022 13:04-0500 Body weight 80.[address] Sherice Avendano Work Phone: [facility] 02-15-2022 13:04-0500 Diastolic blood pressure 64 mm[Hg] Dr. Sherice Avendano Work Phone: [facility] 02-15-2022 13:04-0500 Heart rate 80 /min Dr. Sherice Avendano Work Phone: [facility] 02-15-2022 13:04-0500 Respiratory rate 18 /min Dr. Sherice Avendano Work Phone: [facility] 02-15-2022 13:04-0500 SaO2% (BldA) [Mass fraction] 99 % Dr. Sherice Avendano Work Phone: [facility] 02-15-2022 13:04-0500 Systolic blood pressure 124 mm[Hg] Dr. Sherice Avendano Work Phone: [facility] 01-01-2022 08:24-0400 Body height 170.[address] Sherice Avendano Work Phone: [facility] Work Phone: 01-01-2022 08:24-0400 Body mass index (BMI) [Ratio] 26.4 kg/m2 Dr. Sherice Avendano Work Phone: [facility] Work Phone: 01-01-2022 08:24-0400 Body weight 76.[address] Sherice Avendano Work Phone: [facility] Work Phone: 01-01-2022 08:24-0400 Diastolic blood pressure 74 mm[Hg] Dr. Sherice Avendano Work Phone: [facility] Work Phone: 01-01-2022 08:24-0400 Heart rate 42 /min Dr. Sherice Avendano Work Phone: [facility] Work Phone: 01-01-2022 08:24-0400 Respiratory rate 18 /min Dr. Sherice Avendano Work Phone: [facility] Work Phone: 01-01-2022 08:24-0400 SaO2% (BldA) [Mass fraction] 99 % Dr. Sherice Avendano Work Phone: [facility] Work Phone: 01-01-2022 08:24-0400 Systolic blood pressure 186 mm[Hg] Dr. Sherice Avendano Work Phone: [facility] Work Phone: 11-24-2021 09:01-0400 Body mass index (BMI) [Ratio] 25.9 kg/m2 Dr. Sherice Avendano Work Phone: [facility] Work Phone: 11-24-2021 09:01-0400 Body weight 75.[address] Sherice Avendano Work Phone: [facility] Work Phone: 11-24-2021 09:01-0400 Diastolic blood pressure 86 mm[Hg] Dr. Sherice Avendano Work Phone: [facility] Work Phone: 11-24-2021 09:01-0400 Heart rate 64 /min Dr. Sherice Avendano Work Phone: [facility] Work Phone: 11-24-2021 09:01-0400 Respiratory rate 16 /min Dr. Sherice Avendano Work Phone: [facility] Work Phone: 11-24-2021 09:01-0400 Systolic blood pressure 184 mm[Hg] Dr. Sherice Avendano Work Phone: [facility] Work Phone: 11-01-2021 10:33-0400 Body height 170.[address] Sherice Avendano Work Phone: [facility] Work Phone: 11-01-2021 10:33-0400 Body mass index (BMI) [Ratio] 25.7 kg/m2 Dr. Sherice Avendano Work Phone: [facility] Work Phone: 11-01-2021 10:33-0400 Body temperature 97.4 [degF] Dr. Sherice Avendano Work Phone: [facility] Work Phone: 11-01-2021 10:33-0400 Body weight 74.[address] Sherice Avendano Work Phone: [facility] Work Phone: 11-01-2021 10:33-0400 Diastolic blood pressure 70 mm[Hg] Dr. Sherice Avendano Work Phone: [facility] Work Phone: 11-01-2021 10:33-0400 Heart rate 51 /min Dr. Sherice Avendano Work Phone: [facility] Work Phone: 11-01-2021 10:33-0400 Respiratory rate 16 /min Dr. Sherice Avendano Work Phone: [facility] Work Phone: 11-01-2021 10:33-0400 SaO2% (BldA) [Mass fraction] 99 % Dr. Sherice Avendano Work Phone: [facility] Work Phone: 11-01-2021 10:33-0400 Systolic blood pressure 144 mm[Hg] Dr. Sherice Avendano Work Phone: [facility] Work Phone: 05-22-2021 11:22-0400 Body height 170.[address] Sherice Avendano Work Phone: [facility] Work Phone: 05-22-2021 11:22-0400 Body mass index (BMI) [Ratio] 27.1 kg/m2 Dr. Sherice Avendano Work Phone: [facility] Work Phone: 05-22-2021 11:22-0400 Body weight 78.[address] Sherice Avendano Work Phone: [facility] Work Phone: 05-22-2021 11:22-0400 Diastolic blood pressure 70 mm[Hg] Dr. Sherice Avendano Work Phone: [facility] Work Phone: 05-22-2021 11:22-0400 Heart rate 55 /min Dr. Sherice Avendano Work Phone: [facility] Work Phone: 05-22-2021 11:22-0400 Respiratory rate 18 /min Dr. Sherice Avendano Work Phone: [facility] Work Phone: 05-22-2021 11:22-0400 SaO2% (BldA) [Mass fraction] 99 % Dr. Sherice Avendano Work Phone: [facility] Work Phone: 05-22-2021 11:22-0400 Systolic blood pressure 166 mm[Hg] Dr. Sherice Avendano Work Phone: [facility] Work Phone: Encounters Encounter Date Encounter Type Care Provider Facility Start: 12-17-2024 End: 12-17-2024 Patient encounter procedure Yan MA -[facility] Work Phone: Start: 12-17-2024 End: 12-17-2024 ambulatory [facility] [place] [place] Start: 12-01-2024 Non-patient / Non-visit Dr. Nicholas davis MD -[facility] Start: 12-01-2024 End: 12-01-[address] Sherice Avendano MD Work Phone: -[facility] Start: 12-01-2024 End: 12-01-2024 Patient encounter procedure Chacorta Porter NP-C -[facility] Work Phone: Start: 12-01-2024 End: 12-01-2024 ambulatory [facility] Facility:[facility] Start: 11-26-2024 End: 11-26-2024 Patient encounter procedure Chacorta DUNN -[facility] Work Phone: Start: 11-26-2024 End: 11-26-[address] Sherice Avendano MD Work Phone: -[facility] Start: 11-11-2024 End: 11-11-[address] Sherice Avendano MD -[facility] Work Phone: Start: 11-11-2024 End: 11-11-[address] Sherice Avendano MD Work Phone: -[facility] Start: 10-28-2024 End: 10-28-2024 Patient encounter procedure Yan MA -[facility] [place] Work Phone: Start: 10-28-2024 End: 10-28-[address] Sherice Avendano MD Work Phone: -[facility] [place] Start: 08-26-2024 End: 08-26-2024 Patient encounter procedure Chacorta Porter CAN TENDER-C -[facility] Work Phone: Start: 08-26-2024 End: 08-26-[address] Sherice Avendano MD Work Phone: [facility] Work Phone: Start: 08-20-2024 End: 08-20-2024 Patient encounter procedure Riya Lutz CAN TENDER-C -[facility] [place] Work Phone: Start: 08-20-2024 End: 08-20-[address] Sherice Avendano MD Work Phone: [facility] Work Phone: Start: 08-04-2024 End: 08-04-2024 Emergency department patient visit Dr. Sherice Avendano MD Work Phone: -Emergency Department Work Phone: Start: 06-10-2024 End: 06-10-2024 ambulatory Gennaro Fuentes CAN TENDER-C Work Phone: [facility] Work Phone: Start: 06-10-2024 End: 06-10-2024 Patient encounter procedure Chacorta Porter CAN TENDER-C -[facility] Work Phone: Start: 06-10-2024 End: 06-10-2024 ambulatory Chacorta Porter NP Facility:[facility] Start: 05-19-2024 End: 05-19-2024 Patient encounter procedure Chacorta Porter CAN TENDER-C -[facility] Work Phone: Start: 05-19-2024 End: 05-19-2024 ambulatory Chacorta Porter CAN TENDER Facility:[facility] Start: 05-15-2024 End: 05-15-2024 ambulatory Gennaro Fuentes CAN TENDER-C Work Phone: [facility] Work Phone: Start: 05-15-2024 End: 05-15-[address] Sherice Avendano MD -Laboratory, [place] Work Phone: Start: 05-15-2024 End: 05-15-2024 ambulatory [facility] Facility:[facility] Start: 05-07-2024 End: 05-07-[address] Sherice Avendano MD -[facility] Work Phone: Start: 05-07-2024 End: 05-07-2024 ambulatory [facility] Facility:[facility] [place] Start: 04-02-2024 ambulatory Marlena Angel Fa cility:[facility] Start: 04-02-2024 Non-patient / Non-visit Dr. India [facility] Start: 04-01-2024 ambulatory Nicholas Teixeira Facility:[facility] Start: 04-01-2024 Non-patient / Non-visit Dr. Nicholas davis MD -[facility] Start: 04-01-2024 End: 04-01-2024 Patient encounter procedure Marlena MA -Cardiovascular Services Work Phone: Start: 04-01-2024 End: 04-01-2024 ambulatory Marlean Angel Facility:[facility] Start: 04-01-2024 Non-patient / Non-visit Dr. India WERNER [facility] Start: 03-11-2024 End: 03-11-2024 Patient encounter procedure Marlena MA -[facility] Work Phone: Start: 03-11-2024 End: 03-11-2024 ambulatory Marlena Angel [place] Start: 03-10-2024 End: 03-10-[address] Edna Tilley MD -Laboratory, [place] Work Phone: Start: 03-09-2024 End: 03-10-2024 ambulatory Edna Tilley Facility:[facility] Start: 02-24-2024 ambulatory Pop Castellanos Facility:[facility] Start: 02-24-2024 Non-patient / Non-visit Dr. India WERNER -[facility] Start: 02-24-2024 End: 02-24-2024 Patient encounter procedure Gennaro Fuentes CAN TENDER-C -[facility] Work Phone: Start: 02-24-2024 End: 02-24-2024 ambulatory Gennaro Fuentes NP Facility:[facility] Start: 02-12-2024 End: 02-12-2024 Telephone encounter Jhonny Lim MD Work Phone: [facility] Start: 01-16-2024 End: 01-16-2024 ambulatory Gennaro Fuentes NP Facility:[facility] Start: 01-10-2024 End: 01-10-2024 Telephone encounter Jhonny Lim MD Work Phone: [facility] Start: 01-09-2024 End: 01-09-2024 Emergency department patient visit Denzel Carlin Facility:[facility] Start: 01-09-2024 End: 01-09-2024 ambulatory Sherice Avendano Facility:[facility] Start: 01-09-2024 End: 01-09-2024 ambulatory Luis Awashingtonkarla Avendano Facility:[facility] Start: 06-12-2023 End: 06-12-2023 ambulatory FABIOLA PARKER Facility:[id number] Start: 06-06-2023 Patient encounter status Gennaro Fuentes CAN TENDER-C Work Phone: [facility] Comment on above: Scheduled for retina surgery on 06/12/2023 Start: 05-22-2023 End: 05-22-[address] Sherice Avendano Work Phone: [facility] Work Phone: Start: 05-22-2023 End: 05-22-2023 Emergency department patient visit Dr. Sherice Avendano Work Phone: [facility] Start: 05-22-2023 End: 05-22-[address] Sherice Avendano Work Phone: [facility] Work Phone: Start: 05-09-2023 End: 05-09-[address] Sherice Avendano Work Phone: [facility] Work Phone: Start: 05-09-2023 End: 05-09-[address] Sherice Avendano Work Phone: [facility] Work Phone: Start: 05-01-2023 End: 05-01-[address] Sherice Avendano Work Phone: [facility] Work Phone: Start: 04-25-2023 End: 04-25-[address] Sherice Avendano Work Phone: [facility] Work Phone: Start: 04-25-2023 End: 04-25-[address] Sherice Avendano Work Phone: [facility] Work Phone: Start: 04-24-2023 End: 04-24-[address] Sherice Avendano Work Phone: [facility] Work Phone: Start: 04-21-2023 End: 04-21-[address] Sherice Avendano Work Phone: [facility] Work Phone: Start: 04-01-[address] Sherice Avendano Work Phone: [facility] Start: 04-01-2023 End: 04-01-[address] Sherice Avendano Work Phone: [facility] Work Phone: Start: 04-01-2023 End: 04-01-2023 Emergency department patient visit Dr. Sherice Avendano Work Phone: [facility] Start: 04-01-2023 End: 04-01-[address] Sherice Avendano Work Phone: [facility] Work Phone: Start: 02-19-2023 End: 02-19-[address] Sherice Avendano Work Phone: [facility] Work Phone: Start: 12-26-2022 End: 12-26-[address] Sherice Avendano Work Phone: [facility] Work Phone: Start: 11-27-2022 End: 11-27-[address] Sherice Avendano Work Phone: [facility] Work Phone: Start: 11-27-2022 End: 11-27-[address] Sherice Avendano Work Phone: [facility] Work Phone: Start: 11-07-2022 End: 11-07-[address] Sherice Avendano Work Phone: [facility] Work Phone: Start: 09-28-2022 End: 09-28-[address] Sherice Avendano Work Phone: [facility] Work Phone: Start: 09-28-2022 End: 09-28-[address] Sherice Avendano Work Phone: [facility] Work Phone: Start: 08-27-2022 End: 08-27-[address] Sherice Avendano Work Phone: [facility] Work Phone: Start: 08-15-2022 End: 08-15-[address] Sherice Avendano Work Phone: [facility] Work Phone: Start: 05-01-2022 End: 05-01-[address] Sherice Avendano Work Phone: [facility] Work Phone: Start: 05-01-2022 End: 05-01-[address] Sherice Avendano Work Phone: [facility] Start: 03-01-2022 End: 03-01-[address] Sherice Avendano Work Phone: [facility] Start: 02-27-2022 End: 02-27-[address] Sherice Avendano Work Phone: [facility] Start: 02-15-[address] Sherice Avendano Work Phone: [facility] Start: 02-15-2022 End: 02-15-2022 Encounter for general adult medical examination without abnormal findings Dr. Sherice Avendano Work Phone: [facility] Start: 02-15-2022 End: 02-15-[address] Sherice Avendano Work Phone: [facility] Start: 01-26-2022 End: 01-26-[address] Sherice Avendano Work Phone: [facility] Start: 01-22-2022 Non-patient / Non-visit Dr. Raul Avendano Work Phone: [facility] Start: 01-22-2022 End: 01-22-[address] Sherice Avendano Work Phone: [facility] Work Phone: Start: 01-22-2022 End: 01-22-[address] Sherice Avendano Work Phone: [facility]-Cardiovascula [facility] Services Start: 01-06-2022 End: 01-06-[address] Sherice Avendano Work Phone: [facility] Start: 01-01-2022 End: 01-01-[address] Sherice Avendano Work Phone: [facility] Work Phone: Start: 01-01-2022 End: 01-01-[address] Sherice Avendano Work Phone: [facility] Start: 12-29-2021 End: 12-29-[address] Sherice Avendano Work Phone: [facility] Work Phone: Start: 12-29-2021 End: 12-29-[address] Sherice Avendano Work Phone: [facility] Start: 11-24-2021 End: 11-24-[address] Sherice Avendano Work Phone: [facility] Start: 11-01-2021 End: 11-01-[address] Sherice Avendano Work Phone: [facility] Start: 10-30-2021 End: 10-30-[address] Sherice Avendano Work Phone: [facility] Work Phone: Start: 10-30-2021 End: 10-30-[address] Sherice Avendano Work Phone: [facility] Start: 06-08-2021 End: 06-08-[address] Sherice Avendano Work Phone: [facility] Start: 05-22-2021 End: 05-22-[address] Sherice Avendano Work Phone: [facility] Start: 04-11-2021 End: 04-11-[address] Sherice Avendano Work Phone: [facility] Procedures Date Procedure Procedure Detail Performing Clinician Start: 08-04-2024 X-ray of chest, PA a nd lateral views Dr. Sherice Avendano MD Work Phone: Start: 08-04-[address] Sherice Avendano MD Work Phone: Start: 05-15-2024 Urine microalbumin/creatinine ratio measurement Dr. Sherice Avendano MD Work Phone: Start: 05-15-2024 Vitamin D, 25-hydrox y measurement Dr. Sherice Avendano MD Work Phone: Comment on above: Vitamin D StatusDefi ciency: <20 ng/mL (50nmol/L)Insufficiency: 20-30 ng/mL (50-75 nmol/L)Sufficiency: 30-100 ng/mL (75-250 nmol/L)Toxicity: >100 ng/mL (>250 nmol/L) Start: 04-01-2024 Cardiovascular stres s test using pharmacologic stress agent Gennaro Fuentes CAN TENDER-C Work Phone: Start: 02-24-2024 CT of chest without contrast Gennaro Fuentes CAN TENDER-C Work Phone: Start: 05-09-2023 Plain chest X-ray Dr. Eros Avendano Work Phone: Start: 04-25-2023 Plain chest X-ray Dr. Eros Avendano Work Phone: Start: 04-24-2023 Coronavirus COVID-[address] Sherice Avendano Work Phone: Plan of Treatment Date Care Activity Detail Author Start: 2033 RSV Immunization for Adults (1 - 1-dose 75+ series) RSV Immunization for Adults (1 - 1-dose 75+ series) [facility] Start: 08-10-2029 DTaP/Tdap/Td Vaccines (2 - Td or Tdap) DTaP/Tdap/Td Vaccines (2 - Td or Tdap) [facility] Start: 08-10-2029 DTaP/Tdap/Td Vaccines (3 - Td or Tdap) DTaP/Tdap/Td Vaccines (3 - Td or Tdap) [facility] Start: 12-01-2024 Patient encounter procedure Registered Clinical -Cardiovascular Services Work Phone: Start: 11-26-2024 End: 11-26-2024 Evaluation of diagnostic study results [facility] Start: 08-04-2024 [facility] Start: 08-04-2024 [facility] Start: 08-04-2024 [facility] Start: 02-12-2024 End: 02-12-2024 Patient encounter procedure 02/12/2024 1:00 PM EST Office Visit [facility] [place] [address] [place] [id number] Jhonny Lim MD [address] [place] [address] [facility] [place] Start: 12-15-2023 Pneumococcal Vaccine: 65+ Years (2 of 2 - PCV) Pneumococcal Vaccine: 65+ Years (2 of 2 - PCV) [facility] Start: 11-03-2023 COVID-19 Vaccine ( season) COVID-19 Vaccine ( season) [facility] Start: 11-03-2023 Influenza vaccination Influenza Vaccine (#1) [facility] Start: 04-01-2023 Patient referral [facility] Work Phone: Start: 04-01-2023 Testosterone measurement [facility] Start: 2018 RSV Immunization for Adults (1 - Risk 60-74 years 1-dose series) RSV Immunization for Adults (1 - Risk 60-74 years 1-dose series) [facility] Start: 2008 Zoster Vaccines (1 of 2) Zoster Vaccines (1 of 2) [facility] Start: 1976 Diabetes: Estimated Glomerular Filtration Rate for Kidney Health Diabetes: Estimated Glomerular Filtration Rate for Kidney Health [facility] Start: 1976 Diabetes: Urine Albumin-Creatinine Ratio for Kidney Health Diabetes: Urine Albumin-Creatinine Ratio for Kidney Health [facility] Start: 1976 Hepatitis C screening Hepatitis C Screening [facility] Start: 1970 Depression Screening Depression Screening [facility] Start: 1968 Diabetic foot examination Diabetes: Foot Exam [facility] Start: 1968 Glaucoma screening Diabetes: Retinopathy Screening [facility] Start: 1968 Preventive dental service Diabetes: Dental Exam [facility] Start: 12-15-1959 MMR Vaccines (1 of 1 - Standard series) MMR Vaccines (1 of 1 - Standard series) [facility] Start: 1958 Annual wellness visit Medicare Initial Physical (IPPE) [facility] Start: 1958 Hemoglobin A1c measurement Diabetes: Hemoglobin A1C [facility] Start: 1958 Lipid panel Lipid Panel [facility] Start: 1958 Screening for malignant neoplasm of colon [facility] Blood chemistry [facility] Work Phone: Blood chemistry [facility] Lipid 1996 panel - S camila or Plasma [facility] Work Phone: Patient referral [facility] Work Phone: Prostate specific antigen measurement [facility] Testosterone [Mass/volume] in Serum or Plasma [facility] Testosterone Free [Mass/volume] in Serum or Plasma [facility] US Carotid arteries [facility] Renal artery [facility] Work Phone: Immunizations Immunization Date Immunization Notes Care Provider Fa cility 06-02-2020 Covid (Pfizer) Dr. Sherice Avendano Work Phone: [facility] 05-12-2020 Covid (Pfizer) Dr. Sherice Avendano Work Phone: [facility] 12-04-2019 influenza, injectable,quadrivalent, preservative free, pediatric Dr. Sherice Avendano Work Phone: [facility] 12-04-2019 pneumococcal polysaccharide vaccine, [address] Sherice Avendano Work Phone: [facility] 12-04-2019 pneumococcal vaccine , unspecified formulation Dr. Sherice Avendano Work Phone: [facility] Work Phone: 12-04-2019 Flucelvax Quad 2019- 2020 (PF) (flu vac qs 2020(4 yr up)CD(PF)) 60 mcg ([address] Sherice Avendano Work Phone: [facility] Work Phone: 12-04-2019 influenza virus vacc ine, unspecified formulation Jhonny Lim MD Work Phone: [facility] 08-11-2019 tetanus toxoid, redu tere diphtheria toxoid, and acellular pertussis vaccine, adsorbed Dr. Sherice Avendano Work Phone: [facility] 08-11-2019 diphtheria, tetanus toxoids and acellular pertussis vaccine, unspecified formulation Dr. Sherice Avendano Work Phone: [facility] Work Phone: Payers Date Payer Category Payer Self-pay [id number] 2014 Medicare [id number] [id number] Medicare [id number] 89f [id number] Unknown [id number] Unknown [id number] 2.16.8 [id number] Unknown [id number] 2.16.8 [id number] Unknown [id number] 2.16.8 [id number] Unknown [id number] 2.16.8 40.1.932810.3.579.2.462 Unknown [id number] 2.16.8 40.1.779306.3.579.2.462 Unknown [id number] 2.16.8 40.1.295923.3.579.2.462 Unknown [id number] 2.16.8 40.1.435115.3.579.2.462 Unknown [id number] 2.16.8 40.1.484838.3.579.2.462 Unknown [id number] 2.16.8 40.1.953108.3.579.2.462 Unknown [id number] 2.16.8 40.1.366068.3.579.2.462 Unknown [id number] 2.16.8 40.1.884106.3.579.2.462 Unknown [id number] 2.16.8 40.1.775928.3.579.2.462 Unknown [id number] 2.16.8 40.1.219573.3.579.2.462 Unknown [id number] 2.16.8 40.1.241559.3.579.2.462 Unknown [id number] 2.16.8 40.1.515545.3.579.2.462 Unknown [id number] 2.16.8 40.1.417966.3.579.2.462 Unknown [id number] 2.16.8 40.1.808151.3.579.2.462 Unknown [id number] 2.16.8 40.1.180188.3.579.2.462 Unknown [id number] 2.16.8 40.1.733129.3.579.2.462 Unknown [id number] 2.16.8 40.1.113875.3.579.2.462 Unknown [id number] 2.16.8 40.1.649082.3.579.2.462 Unknown [id number] 2.16.8 40.1.623328.3.579.2.462 Unknown [id number] 2.16.8 40.1.208300.3.579.2.462 Unknown [id number] 2.16.8 40.1.676652.3.579.2.462 Unknown [id number] 2.16.8 40.1.745567.3.579.2.462 Unknown [id number] 2.16.8 40.1.779880.3.579.2.462 Unknown [id number] 2.16.8 [id number] Social History Date Type Detail Facility Start: 05-21-2021 End: 05-22-2023 Tobacco smoking status VTIS Unknown if ever smoked [facility] Start: 1960 Sex Assigned At Male W [facility] Start: 1960 Sex assigned at Not on file [facility] Start: 01-10-2024 End: 06-16-2024 Sex Male (finding) [facility] Gender identity Not on file [facility] Start: 01-09-2024 End: 08-04-2024 Tobacco smoking status NHIS Ex-smoker (finding) [facility] Medical Equipment Procedure Code Equipment Code Equipment Origin al Text Equipment Identifier Dates [facility] FDA Start: 08-15-2011 Blood Sugar Diagnostic (Onetouch Ultra Blue Test Strip) strip Start: 01-25-2021 Pen Needle, Diab etic (Bd Ultra-Fine Mini Pen Needle) 31 gauge x 3/16 needle Start: 01-25-2021 Blood Sugar Diagnostic (Onetouch Ultra Blue Test Strip) strip Start: 05-29-2018 End: 05-29-2018 Blood Sugar Diagnostic (Onetouch Ultra Blue Test Strip) strip Start: 05-29-2018 End: 01-25-2021 one touch ultra test strips Start: 02-11-2017 End: 08-28-2017 Pen Needle, Diab etic (Bd Ultra-Fine Mini Pen Needle) 31 gauge x 3/16 needle Start: 01-25-2021 End: 01-25-2021 [facility] FDA Start: 08-15-2011 Blood Sugar Diagnostic (Onetouch Ultra Blue Test Strip) strip Start: 01-25-2021 Pen Needle, Diab etic (Bd Ultra-Fine Mini Pen Needle) 31 gauge x 3/16 needle Start: 01-25-2021 Blood Sugar Diagnostic (Onetouch Ultra Blue Test Strip) strip Start: 05-29-2018 End: 05-29-2018 Blood Sugar Diagnostic (Onetouch Ultra Blue Test Strip) strip Start: 05-29-2018 End: 01-25-2021 one touch ultra test strips Start: 02-11-2017 End: 08-28-2017 Pen Needle, Diab etic (Bd Ultra-Fine Mini Pen Needle) 31 gauge x 3/16 needle Start: 01-25-2021 End: 01-25-2021 [facility] FDA Start: 08-15-2011 Blood Sugar Diagnostic (Onetouch Ultra Blue Test Strip) strip Start: 01-25-2021 Pen Needle, Diab etic (Bd Ultra-Fine Mini Pen Needle) 31 gauge x 3/16 needle Start: 01-25-2021 Blood Sugar Diagnostic (Onetouch Ultra Blue Test Strip) strip Start: 05-29-2018 End: 05-29-2018 Blood Sugar Diagnostic (Onetouch Ultra Blue Test Strip) strip Start: 05-29-2018 End: 01-25-2021 one touch ultra test strips Start: 02-11-2017 End: 08-28-2017 Pen Needle, Diab etic (Bd Ultra-Fine Mini Pen Needle) 31 gauge x 3/16 needle Start: 01-25-2021 End: 01-25-2021 [facility] FDA Start: 08-15-2011 Blood Sugar Diagnostic (Onetouch Ultra Blue Test Strip) strip Start: 01-25-2021 Pen Needle, Diab etic (Bd Ultra-Fine Mini Pen Needle) 31 gauge x 3/16 needle Start: 01-25-2021 Blood Sugar Diagnostic (Onetouch Ultra Blue Test Strip) strip Start: 05-29-2018 End: 05-29-2018 Blood Sugar Diagnostic (Onetouch Ultra Blue Test Strip) strip Start: 05-29-2018 End: 01-25-2021 one touch ultra test strips Start: 02-11-2017 End: 08-28-2017 Pen Needle, Diab etic (Bd Ultra-Fine Mini Pen Needle) 31 gauge x 3/16 needle Start: 01-25-2021 End: 01-25-2021 [facility] FDA Start: 08-15-2011 Blood Sugar Diagnostic (Onetouch Ultra Blue Test Strip) strip Start: 01-25-2021 Pen Needle, Diab etic (Bd Ultra-Fine Mini Pen Needle) 31 gauge x 3/16 needle Start: 01-25-2021 Blood Sugar Diagnostic (Onetouch Ultra Blue Test Strip) strip Start: 05-29-2018 End: 05-29-2018 Blood Sugar Diagnostic (Onetouch Ultra Blue Test Strip) strip Start: 05-29-2018 End: 01-25-2021 one touch ultra test strips Start: 02-11-2017 End: 08-28-2017 Pen Needle, Diab etic (Bd Ultra-Fine Mini Pen Needle) 31 gauge x 3/16 needle Start: 01-25-2021 End: 01-25-2021 [facility] FDA Start: 08-15-2011 Blood Sugar Diagnostic (Onetouch Ultra Blue Test Strip) strip Start: 01-25-2021 Pen Needle, Diab etic (Bd Ultra-Fine Mini Pen Needle) 31 gauge x 3/16 needle Start: 01-25-2021 Blood Sugar Diagnostic (Onetouch Ultra Blue Test Strip) strip Start: 05-29-2018 End: 05-29-2018 Blood Sugar Diagnostic (Onetouch Ultra Blue Test Strip) strip Start: 05-29-2018 End: 01-25-2021 one touch ultra test strips Start: 02-11-2017 End: 08-28-2017 Pen Needle, Diab etic (Bd Ultra-Fine Mini Pen Needle) 31 gauge x 3/16 needle Start: 01-25-2021 End: 01-25-2021 [facility] FDA Start: 08-15-2011 Blood Sugar Diagnostic (Onetouch Ultra Blue Test Strip) strip Start: 01-25-2021 Pen Needle, Diab etic (Bd Ultra-Fine Mini Pen Needle) 31 gauge x 3/16 needle Start: 01-25-2021 Blood Sugar Diagnostic (Onetouch Ultra Blue Test Strip) strip Start: 05-29-2018 End: 05-29-2018 Blood Sugar Diagnostic (Onetouch Ultra Blue Test Strip) strip Start: 05-29-2018 End: 01-25-2021 one touch ultra test strips Start: 02-11-2017 End: 08-28-2017 Pen Needle, Diab etic (Bd Ultra-Fine Mini Pen Needle) 31 gauge x 3/16 needle Start: 01-25-2021 End: 01-25-2021 [facility] FDA Start: 08-15-2011 Blood Sugar Diagnostic (Onetouch Ultra Blue Test Strip) strip Start: 01-25-2021 Pen Needle, Diab etic (Bd Ultra-Fine Mini Pen Needle) 31 gauge x 3/16 needle Start: 01-25-2021 Blood Sugar Diagnostic (Onetouch Ultra Blue Test Strip) strip Start: 05-29-2018 End: 05-29-2018 Blood Sugar Diagnostic (Onetouch Ultra Blue Test Strip) strip Start: 05-29-2018 End: 01-25-2021 one touch ultra test strips Start: 02-11-2017 End: 08-28-2017 Pen Needle, Diab etic (Bd Ultra-Fine Mini Pen Needle) 31 gauge x 3/16 needle Start: 01-25-2021 End: 01-25-2021 [facility] FDA Start: 08-15-2011 Blood Sugar Diagnostic (Onetouch Ultra Blue Test Strip) strip Start: 01-25-2021 Pen Needle, Diab etic (Bd Ultra-Fine Mini Pen Needle) 31 gauge x 3/16 needle Start: 01-25-2021 Blood Sugar Diagnostic (Onetouch Ultra Blue Test Strip) strip Start: 05-29-2018 End: 05-29-2018 Blood Sugar Diagnostic (Onetouch Ultra Blue Test Strip) strip Start: 05-29-2018 End: 01-25-2021 one touch ultra test strips Start: 02-11-2017 End: 08-28-2017 Pen Needle, Diab etic (Bd Ultra-Fine Mini Pen Needle) 31 gauge x 3/16 needle Start: 01-25-2021 End: 01-25-2021 [facility] FDA Start: 08-15-2011 Blood Sugar Diagnostic (Onetouch Ultra Blue Test Strip) strip Start: 01-25-2021 Pen Needle, Diab etic (Bd Ultra-Fine Mini Pen Needle) 31 gauge x 3/16 needle Start: 01-25-2021 Blood Sugar Diagnostic (Onetouch Ultra Blue Test Strip) strip Start: 05-29-2018 End: 05-29-2018 Blood Sugar Diagnostic (Onetouch Ultra Blue Test Strip) strip Start: 05-29-2018 End: 01-25-2021 one touch ultra test strips Start: 02-11-2017 End: 08-28-2017 Pen Needle, Diab etic (Bd Ultra-Fine Mini Pen Needle) 31 gauge x 3/16 needle Start: 01-25-2021 End: 01-25-2021 [facility] FDA Start: 08-15-2011 Blood Sugar Diagnostic (Onetouch Ultra Blue Test Strip) strip Start: 01-25-2021 Pen Needle, Diab etic (Bd Ultra-Fine Mini Pen Needle) 31 gauge x 3/16 needle Start: 01-25-2021 Blood Sugar Diagnostic (Onetouch Ultra Blue Test Strip) strip Start: 05-29-2018 End: 05-29-2018 Blood Sugar Diagnostic (Onetouch Ultra Blue Test Strip) strip Start: 05-29-2018 End: 01-25-2021 one touch ultra test strips Start: 02-11-2017 End: 08-28-2017 Pen Needle, Diab etic (Bd Ultra-Fine Mini Pen Needle) 31 gauge x 3/16 needle Start: 01-25-2021 End: 01-25-2021 [facility] FDA Start: 08-15-2011 Blood Sugar Diagnostic (Onetouch Ultra Blue Test Strip) strip Start: 01-25-2021 Pen Needle, Diab etic (Bd Ultra-Fine Mini Pen Needle) 31 gauge x 3/16 needle Start: 01-25-2021 Blood Sugar Diagnostic (Onetouch Ultra Blue Test Strip) strip Start: 05-29-2018 End: 05-29-2018 Blood Sugar Diagnostic (Onetouch Ultra Blue Test Strip) strip Start: 05-29-2018 End: 01-25-2021 one touch ultra test strips Start: 02-11-2017 End: 08-28-2017 Pen Needle, Diab etic (Bd Ultra-Fine Mini Pen Needle) 31 gauge x 3/16 needle Start: 01-25-2021 End: 01-25-2021 [facility] FDA Start: 08-15-2011 Blood Sugar Diagnostic (Onetouch Ultra Blue Test Strip) strip Start: 01-25-2021 Insulin Syr/Ndl U100 Half [place] 0.3 mL 31 gauge x 1/4 syringe Start: 01-25-2021 Pen Needle, Diab etic (Bd Ultra-Fine Mini Pen Needle) 31 gauge x 3/16 needle Start: 01-25-2021 Blood Sugar Diagnostic (Onetouch Ultra Blue Test Strip) strip Start: 05-29-2018 End: 05-29-2018 Blood Sugar Diagnostic (Onetouch Ultra Blue Test Strip) strip Start: 05-29-2018 End: 01-25-2021 one touch ultra test strips Start: 02-11-2017 End: 08-28-2017 Pen Needle, Diab etic (Bd Ultra-Fine Mini Pen Needle) 31 gauge x 3/16 needle Start: 01-25-2021 End: 01-25-2021 [facility] ear shunt FDA Start: 08-15-2011 Blood Sugar Diagnostic (Onetouch Ultra Blue Test Strip) strip Start: 01-25-2021 Insulin Syr/Ndl U100 Half [place] 0.3 mL 31 gauge x 1/4 syringe Start: 01-25-2021 Pen Needle, Diab etic (Bd Ultra-Fine Mini Pen Needle) 31 gauge x 3/16 needle Start: 01-25-2021 Blood Sugar Diagnostic (Onetouch Ultra Blue Test Strip) strip Start: 05-29-2018 End: 05-29-2018 Blood Sugar Diagnostic (Onetouch Ultra Blue Test Strip) strip Start: 05-29-2018 End: 01-25-2021 one touch ultra test strips Start: 02-11-2017 End: 08-28-2017 Pen Needle, Diab etic (Bd Ultra-Fine Mini Pen Needle) 31 gauge x 3/16 needle Start: 01-25-2021 End: 01-25-2021 [facility] ear shunt FDA Start: 08-15-2011 Pen Needle, Diab etic (Bd Ultra-Fine Mini Pen Needle) 31 gauge x 3/16 needle Start: 01-25-2021 Blood Sugar Diagnostic (Onetouch Ultra Blue Test Strip) strip Start: 05-29-2018 End: 05-29-2018 Blood Sugar Diagnostic (Onetouch Ultra Blue Test Strip) strip Start: 05-29-2018 End: 01-25-2021 Blood Sugar Diagnostic (Onetouch Ultra Blue Test Strip) strip Start: 01-25-2021 End: 08-04-2024 Insulin Syr/Ndl U100 Half [place] 0.3 mL 31 gauge x 1/4 syringe Start: 01-25-2021 End: 08-04-2024 one touch ultra test strips Start: 02-11-2017 End: 08-28-2017 Pen Needle, Diab etic (Bd Ultra-Fine Mini Pen Needle) 31 gauge x 3/16 needle Start: 01-25-2021 End: 01-25-2021 [facility] ear shunt FDA Start: 08-15-2011 Pen Needle, Diab etic (Bd Ultra-Fine Mini Pen Needle) 31 gauge x 3/16 needle Start: 01-25-2021 Blood Sugar Diagnostic (Onetouch Ultra Blue Test Strip) strip Start: 05-29-2018 End: 05-29-2018 Blood Sugar Diagnostic (Onetouch Ultra Blue Test Strip) strip Start: 05-29-2018 End: 01-25-2021 Blood Sugar Diagnostic (Onetouch Ultra Blue Test Strip) strip Start: 01-25-2021 End: 08-04-2024 Insulin Syr/Ndl U100 Half [place] 0.3 mL 31 gauge x 1/4 syringe Start: 01-25-2021 End: 08-04-2024 one touch ultra test strips Start: 02-11-2017 End: 08-28-2017 Pen Needle, Diab etic (Bd Ultra-Fine Mini Pen Needle) 31 gauge x 3/16 needle Start: 01-25-2021 End: 01-25-2021 [facility] ear shunt FDA Start: 08-15-2011 Pen Needle, Diab etic (Bd Ultra-Fine Mini Pen Needle) 31 gauge x 3/16 needle Start: 01-25-2021 Blood Sugar Diagnostic (Onetouch Ultra Blue Test Strip) strip Start: 05-29-2018 End: 05-29-2018 Blood Sugar Diagnostic (Onetouch Ultra Blue Test Strip) strip Start: 05-29-2018 End: 01-25-2021 Blood Sugar Diagnostic (Onetouch Ultra Blue Test Strip) strip Start: 01-25-2021 End: 08-04-2024 Insulin Syr/Ndl U100 Half [place] 0.3 mL 31 gauge x 1/4 syringe Start: 01-25-2021 End: 08-04-2024 one touch ultra test strips Start: 02-11-2017 End: 08-28-2017 Pen Needle, Diab etic (Bd Ultra-Fine Mini Pen Needle) 31 gauge x 3/16 needle Start: 01-25-2021 End: 01-25-2021 [facility] ear shunt FDA Start: 08-15-2011 Pen Needle, Diab etic (Bd Ultra-Fine Mini Pen Needle) 31 gauge x 3/16 needle Start: 01-25-2021 Blood Sugar Diagnostic (Onetouch Ultra Blue Test Strip) strip Start: 05-29-2018 End: 05-29-2018 Blood Sugar Diagnostic (Onetouch Ultra Blue Test Strip) strip Start: 05-29-2018 End: 01-25-2021 Blood Sugar Diagnostic (Onetouch Ultra Blue Test Strip) strip Start: 01-25-2021 End: 08-04-2024 Insulin Syr/Ndl U100 Half [place] 0.3 mL 31 gauge x 1/4 syringe Start: 01-25-2021 End: 08-04-2024 one touch ultra test strips Start: 02-11-2017 End: 08-28-2017 Pen Needle, Diab etic (Bd Ultra-Fine Mini Pen Needle) 31 gauge x 3/16 needle Start: 01-25-2021 End: 01-25-2021 [facility] shunt FDA Start: 08-15-2011 Pen Needle, Diab etic (Bd Ultra-Fine Mini Pen Needle) 31 gauge x 3/16 needle Start: 01-25-2021 Blood Sugar Diagnostic (Onetouch Ultra Blue Test Strip) strip Start: 05-29-2018 End: 05-29-2018 Blood Sugar Diagnostic (Onetouch Ultra Blue Test Strip) strip Start: 05-29-2018 End: 01-25-2021 Blood Sugar Diagnostic (Onetouch Ultra Blue Test Strip) strip Start: 01-25-2021 End: 08-04-2024 Insulin Syr/Ndl U100 Half [place] 0.3 mL 31 gauge x 1/4 syringe Start: 01-25-2021 End: 08-04-2024 one touch ultra test strips Start: 02-11-2017 End: 08-28-2017 Pen Needle, Diab etic (Bd Ultra-Fine Mini Pen Needle) 31 gauge x 3/16 needle Start: 01-25-2021 End: 01-25-2021 [facility] ear shunt FDA Start: 08-15-2011 Pen Needle, Diab etic (Bd Ultra-Fine Mini Pen Needle) 31 gauge x 3/16 needle Start: 01-25-2021 Blood Sugar Diagnostic (Onetouch Ultra Blue Test Strip) strip Start: 05-29-2018 End: 05-29-2018 Blood Sugar Diagnostic (Onetouch Ultra Blue Test Strip) strip Start: 05-29-2018 End: 01-25-2021 Blood Sugar Diagnostic (Onetouch Ultra Blue Test Strip) strip Start: 01-25-2021 End: 08-04-2024 Insulin Syr/Ndl U100 Half [place] 0.3 mL 31 gauge x 1/4 syringe Start: 01-25-2021 End: 08-04-2024 one touch ultra test strips Start: 02-11-2017 End: 08-28-2017 Pen Needle, Diab etic (Bd Ultra-Fine Mini Pen Needle) 31 gauge x 3/16 needle Start: 01-25-2021 End: 01-25-2021 [facility] ear shunt FDA Start: 08-15-2011 Pen Needle, Diab etic (Bd Ultra-Fine Mini Pen Needle) 31 gauge x 3/16 needle Start: 01-25-2021 Blood Sugar Diagnostic (Onetouch Ultra Blue Test Strip) strip Start: 05-29-2018 End: 05-29-2018 Blood Sugar Diagnostic (Onetouch Ultra Blue Test Strip) strip Start: 05-29-2018 End: 01-25-2021 Blood Sugar Diagnostic (Onetouch Ultra Blue Test Strip) strip Start: 01-25-2021 End: 08-04-2024 Insulin Syr/Ndl U100 Half [place] 0.3 mL 31 gauge x 1/4 syringe Start: 01-25-2021 End: 08-04-2024 one touch ultra test strips Start: 02-11-2017 End: 08-28-2017 Pen Needle, Diab etic (Bd Ultra-Fine Mini Pen Needle) 31 gauge x 3/16 needle Start: 01-25-2021 End: 01-25-2021 [facility] sh[facility] FDA Start: 08-15-2011 Pen Needle, Diab etic (Bd Ultra-Fine Mini Pen Needle) 31 gauge x 3/16 needle Start: 01-25-2021 Blood Sugar Diagnostic (Onetouch Ultra Blue Test Strip) strip Start: 05-29-2018 End: 05-29-2018 Blood Sugar Diagnostic (Onetouch Ultra Blue Test Strip) strip Start: 05-29-2018 End: 01-25-2021 Blood Sugar Diagnostic (Onetouch Ultra Blue Test Strip) strip Start: 01-25-2021 End: 08-04-2024 Insulin Syr/Ndl U100 Half [place] 0.3 mL 31 gauge x 1/4 syringe Start: 01-25-2021 End: 08-04-2024 one touch ultra test strips Start: 02-11-2017 End: 08-28-2017 Pen Needle, Diab etic (Bd Ultra-Fine Mini Pen Needle) 31 gauge x 3/16 needle Start: 01-25-2021 End: 01-25-2021 Mental Status Date Assessment Result Facility 08-04-2024 Cognitive function Level Of Cons ciousness Awake;Alert;Appropriate;Follow s Commands [facility] Work Phone: Clinical Notes 06-11-2023 to 12-17-2024 Note Date & Type Note Facility 12-17-2024 Progress note [facility] 12-17-2024 Progress note Note Date/Time December 17, 2024 3:15pm [facility] Internal Medicine [address] [place] [address] [place] [address] OFFICE VISIT Date of Service: 12/17/24 MR#: [id number] Acct: [id number] Name: OLIVIER MENDOZA Rep #: [id number] : 1960 Provider: ANIL Dunn Age/Sex: 64/M Location[place] [facility] [place] Status: Signed Intake Vital Signs 11/26/24 10:04 12/17/24 14:41 Height 5 ft 7 in 5 ft 7 in Weight: 166 lb BMI 25.9 BP 168/100 H Blood Pressure Location Lt brachial Position Sitting Respiration 16 Pulse 81 Pulse Source Monitor Temp 98.2 F Temp Source Temporal Pulse Oximetry (%) 93 Oxygen Delivery Method room air Intake Visit Reasons: Voicebox issues Chief Complaint: 6 M FU 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 Is patient in pain?: No Allergies latex Allergy (Unknown, Verified 12/17/24 14:34) Unknown Plfsqsz-KLW-XtI Reductase Inhibitor (Xkdscti-Irb-Iso Reductase Inhibitor) Adverse Reaction (Severe, Verified 12/17/24 14:34) muscle pain Medications ?Medication ?Instructions ?Recorded ?Confirmed ?Type insulin lispro 100 unit/mL See Rx Instructions subcut TID 12/04/19 12/17/24 History subcutaneous pen (Humalog KwikPen e10.9 (U-100) Insulin) pen needle, diabetic 31 gauge x #100 ea 01/25/2112/17 Rx 05/17 (BD Ultra-Fine Mini Pen Needle) handicap placard See Rx Instructions .Route 0 05/25/21 12/17/24 Rx .COMPLEX #1 unit compress.stocking,knee,reg,lrg #2 ea 01/09/24 12/17/24 Rx tadalafil 5 mg tablet 5 mg PO DAILY 03/11/2412/17 History blood-glucose sensor (FreeStyle 05/07/24 12/17/24 His tory Daron 2 Plus Sensor device) omeprazole 40 mg capsule,delayed 40 mg PO QDAY PRN kemal d 05/19/24 12/17/24 History release furosemide 40 mg tablet (Lasix) 40 mg PO QAM 08/26/24 12/17/24 History insulin glargine 100 unit/mL (3 25 unit subcut QAM 12/17/24 History mL) subcutaneous pen (Basaglar KwikPen U-100 Insulin) amlodipine 10 mg tablet 10 mg PO QDAY #90 tabs 10/0712/17/24 Rx fluticasone propionate 50 1 spray intranasal DAILY PRN nasal 10/19/24 12/17/24 Rx mcg/actuation nasal congestion #16 grams spray,suspension levothyroxine 150 mcg tablet 150 mcg PO DAILY #90 tabs 10/19/24 12/17/24 Rx benzonatate 200 mg capsule 200 mg PO TID PRN cough #30 caps 10/28/24 12/17/24 Rx cholecalciferol (vitamin D3) 50 2,000 unit PO DAILY #9 0 caps 11/11/24 12/17/24 Rx mcg (2,000 unit) capsule clonidine 0.1 mg/24 hr weekly 1 patch transdermal QWEE K #4 ea 11/11/24 12/17/24 Rx transdermal patch losartan 100 mg tablet 100 mg PO DAILY #90 TABLETS 11/11/24 12/17/24 Rx sildenafil 25 mg tablet (Viagra) 25 mg PO QDAY PRN sex ual activity 11/11/24 12/17/24 Rx #20 tabs evolocumab 140 mg/mL subcutaneous 140 mg subcut Q2W #2 mL 11/13/24 12/17/24 Rx pen injector (Repatha SureClick) carvedilol 6.25 mg tablet 6.25 mg PO BID #180 tabs 12/17/24 Rx amoxicillin 875 mg-potassium 1 tab PO BID #20 tabs 12/17/24 Rx clavulanate 125 mg tablet levocetirizine 5 mg tablet (Xyzal) 5 mg PO QDAY #30 ta bs 12/17/24 12/17/24 Rx Have you fallen in the past year?: No Nurse's Note: Pt states that he was seen end of october for the same thing he was told it was allergies. Pt has tried hallz, throat spray. He has an intermitten dry cough, and drainage w/ voice cracking States nothing is working. pt has a sore throatin the morning. 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 Diabetic foot ulcer associated with diabetes mellitus due to underlying condition Decubitus ulcer of foot, stage 2 Carotid artery stenosis Bradycardia Granuloma annulare Hypothyroidism BPH (benign prostatic hyperplasia) Abdominal pain Sleep apnea Hearing problem Back problem High calcium levels Type 1 diabetes mellitus Meniere's disease Acquired plantar keratoderma Essential hypertension Surgical History Hx of bilateral cataract extraction (~06/2022) History of left heart catheterization (05/09/20) History of removal of cyst History of eye surgery Family History Mother Diabetes Myocardial infarction Heart disease High cholesterol Grandmother Parkinson disease Father Prostate cancer Grandfather COPD (chronic obstructive pulmonary disease) Social History Smoking Status: Former smoker Smokeless tobacco user: chewing tobacco how long ago did patient quit smokin years ago second hand exposure: No alcohol intake: current alcohol intake frequency: a few times a month substance use type: does not use caffeine: Yes Type: coffee Number of servings: 3 HPI HPI Chief Complaint: 6 M FU Details: OLIVIER MENDOZA, is a 64 M who presents to the office today for uri symptoms. He states that he has been dealing with this since october. He states that he has a lot of drainage that irritates his vocal folds. He has occasional dry cough (nothing consistent). He states that he does use Flonase daily as well as Netti pots for chronic sinus / allergy issues. Denies ear pains / pressures although has some sounds in the ears. He denies any sinus pains but states first thing inthe AM he has the drainage that is sitting in the back of the throat. Cough again is dry and mainly at night when he is lying down. He denies any fevers or chills, shortness of breath, wheezing, headaches, dizziness, or other symptoms. He states that his GERD has been stable / controlled as of recent. No recent flare-ups. No nicotine use (quit 20 years ago) ROS Const Constitutional: No body ache, chills, excessive sweating, fatigue, fever(s), frequent falls, headache(s), snoring, weakness, sleep problems or change in appetite Eyes Eyes: No blurry vision, change in vision, eye pain or Light sensitivity ENT ENT: No abnormal hearing, ear or mastoid pain, tinnitus, nasal congestion, headache(s), neck pain or sore throat Resp Respiratory: No cough, shortness of breath, snoring or wheezing Cardio Cardiology: No chest pain at rest, chest pain with exertion, excessive sweating,shortness of breath, dyspnea on exertion, lightheadedness, orthopnea or palpitations Gastro GI: No abdominal pain, change in bowel habits, constipation, cramping, diarrhea,nausea/dyspepsia or vomiting Genitourinary Male: No burning urination, painful urination, urinary incontinence or urinary frequency Musc Musculoskeletal: No abnormal gait, joint pain, back pain, limited range of motion, neck pain or numbness Skin Skin: No dry skin, redness, lesions, itchy eyes, rash or wounds Neuro Neurology: No abnormal gait, abnormal hearing, weakness, frequent falls, headache(s), memory loss or numbness Psych Psychiatric: No anxiety, No change in appetite, No depression, No memory loss and No Thoughts of harming yourself/Others Endo Endocrine: No cold intolerance, excessive sweating, fatigue, flushing, heat intolerance, increased thirst/drinking or increased hunger Aller/Imm Allergy/Immunologic: No itchy eyes, seasonal allergy symptoms, hives or wheezing Randy/Lymp Hematologic/Lymphatic: No easy bleeding, easy bruising, enlarged lymph nodes or other Exam Const General: cooperative, healthy appearing, comfortable, no acute distress, well developed and well groomed Nutritional Appearance: average body habitus Orientation: alert, awake and oriented x3 HENMT Head: normocephalic and atraumatic Ears: hearing grossly normal bilaterally Face and sinus: sinus tenderness ethmoid and maxillary; not frontal Mouth: tongue normal Throat: posterior oropharynx abnormal no edema and no erythema and postnasal drainage Neck Neck: no lymphadenopathy Neck mass: No Lymphatic: no lymphadenopathy noted Resp Effort & Inspection: normal respiratory effort, able to speak in complete sentences, symmetric chest movement and no cough (not noted in office today) Auscultation: Bilateral: Clear to Auscultation Cardio Rate: regular rate Rhythm: regular rhythm Heart Sounds: S1 normal, S2 normal and no murmurs Pulses: radial pulses present bilaterally 2+ Neuro General: patient alert, patient awake and patient oriented x3 Cognition: normal cognition Speech: speech normal Psych Appearance: grossly normal Mental Status: mental status grossly normal Affect: normal affect Speech and Movement: speech and movement normal Coding Level of Care Code Off vis,est,level 3 Diagnoses Acute rhinosinusitis J01.90 Assessment and Plan Assessment and Plan (1) Acute rhinosinusitis: Status: Acute Plan: Patient presents to the office today for some continued sinus/upper respiratory symptoms. Patient states that he started to have this back in October. He started to do Flonase and the Vian Dillon which he states he great however the drainage has continued and actually has become a little bit worse. He states heis getting thicker stuff and is worse first thing in the morning when he wakes up. He now has a little bit of sinus tenderness as well. Again he does though have a history of having allergies which was very likely what initiated this. At this point with some continued/progressing symptoms as well as some newer onset sinus pain/pressure we Argun to go ahead and treat this for an acute sinusitis secondary to chronic allergic issues. At this time we are to go aheadand get him on an antihistamine as well as an antibiotic. Still want to avoid steroids due to diabetes. We did discuss though that if he has resolution of upper respiratory symptoms but chronic coughing then we will need to make sure evaluate with chest x-ray. Medications: New amoxicillin-pot clavulanate 875-125 mg 1 TAB PO BID 20 tabs 0RF levocetirizine (Xyzal) 5 mg PO QDAY 30 tabs 2RF Clinical Quality Measures Falls Risk Screening/Assistive Devices Have you fallen in the past year?: No 12/17/24 1536 <Electronically signed by Yan MA> Date _ Yan MA Cosigner Signature: Date (if applicable) CC: ~ [facility] Work Phone: [phone]) 491-332909-25-2025 Progress [facility] [address] [place] [address] OFFICE VISIT Date of Service: 11/26/24 MR#: [id number] Acct: [id number] Name: OLIVIER MENDOZA Rep #: [id number] : 1960 Provider: SHAUN Porter Age/Sex: 63/M Location[place] [facility] [place] Status: Signed HPI HPI History of Present Illness Details: This is a 63-year-old gentleman who presents here today for a cardiovascular follow-up visit. He has a history of hypertension, hyperlipidemia, carotid artery disease, obstructive sleep apnea, and diabetes. In February of 2020, he presented to the emergency room with chest pain with negative troponins. He had an abnormal EKG with changes concerning ischemia, and a stress test that was negative for ischemia. He underwent a cardiac catheterization 05/2020, which demonstrated diffuse coronary artery disease with small vessels noted in the entire coronary vasculature. He is established with Dr. Tilley. He denies chest, arm, jaw, or neck discomfort. He denies palpitations. He states bilateral lower extremity edema. He denies claudication. He states shortness of breath with activity such yard work (picking up logs) and shortnessof breath at rest such as after activity that improves with rest. He denies orthopnea or PND. He denies chronic cough. He denies significant, sudden weight gain. He denieslightheadedness, dizziness, near-syncope, or syncope. He denies blood in urine, blood in stool, or epistaxis. He denies fever with chills. He denies myalgia. He denies fatigue. His exercise level hasremainedstable. 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 Accompanied by: Self Is patient in pain?: No Allergies latex Allergy (Unknown, Verified 11/26/24 09:58) Unknown Mwkkiih-CTM-CvQ Reductase Inhibitor (Jwtrora-Baq-Emb Reductase Inhibitor) Adverse Reaction (Severe,Verified 11/26/24 09:58) muscle pain Medications ?Medication ?Instructions ?Recorded ?Confirmed ?Type insulin lispro 100 unit/mL See Rx Instructions subcut TID 12/04/19 11/26/24 History subcutaneous pen (Humalog KwikPen e10.9 (U-100) Insulin) pen needle, diabetic 31 gauge x #100 ea 01/25/2111/26 Rx 3/16 (BD Ultra-Fine Mini Pen Needle) handicap placard See Rx Instructions .Route 0 05/25/21 11/26/24 Rx .COMPLEX #1 unit compress.stocking,knee,reg,lrg #2 ea 01/09/24 11/26/24 Rx tadalafil 5 mg tablet 5 mg PO DAILY 03/11/2411/26 History blood-glucose sensor (FreeStyle 05/07/24 11/26/24 His [email or web address] Daron 2 Plus Sensor device) omeprazole 40 mg capsule,delayed 40 mg PO QDAY PRN kemal d 05/19/24 11/26/24 History release furosemide 40 mg tablet (Lasix) 40 mg PO QAM 08/26/24 11/26/24 History insulin glargine 100 unit/mL (3 25 unit subcut QAM 11/26/24 History mL) subcutaneous pen (Basaglar KwikPen U-100 Insulin) amlodipine 10 mg tablet 10 mg PO QDAY #90 tabs 10/0711/26/24 Rx fluticasone propionate 50 1 spray intranasal DAILY PRN nasal 10/19/24 11/26/24 Rx mcg/actuation nasal congestion #16 grams spray,suspension levothyroxine 150 mcg tablet 150 mcg PO DAILY #90 tabs 10/19/24 11/26/24 Rx benzonatate 200 mg capsule 200 mg PO TID PRN cough #30 caps 10/28/24 11/26/24 Rx cholecalciferol (vitamin D3) 50 2,000 unit PO DAILY #9 0 caps 11/11/24 11/26/24 Rx mcg (2,000 unit) capsule clonidine 0.1 mg/24 hr weekly 1 patch transdermal QWEE K #4 ea 11/11/24 11/26/24 Rx transdermal patch losartan 100 mg tablet 100 mg PO DAILY #90 TABLETS 11/11/24 11/26/24 Rx sildenafil 25 mg tablet (Viagra) 25 mg PO QDAY PRN sex ual activity 11/11/24 11/26/24 Rx #20 tabs evolocumab 140 mg/mL subcutaneous 140 mg subcut Q2W #2 mL 11/13/24 11/26/24 Rx pen injector (Repadrianaa SureClick) carvedilol 6.25 mg tablet 6.25 mg PO BID #180 tabs 11/26/24 Rx Ejection fraction %: 65 Have you fallen in the past year?: No Nurse's Note: Requests refill on carvedilol 6.25 BID. Requests to talk about clonidine patch, Dr. Avendano recommended but insurance will not cover. 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 Diabetic foot ulcer associated with diabetes mellitus due to underlying condition Decubitus ulcer of foot, stage 2 Carotid artery stenosis Bradycardia Granuloma annulare Hypothyroidism BPH (benign prostatic hyperplasia) Abdominal pain Sleep apnea Hearing problem Back problem High calcium levels Type 1 diabetes mellitus Meniere's disease Acquired plantar keratoderma Essential hypertension Surgical History Hx of bilateral cataract extraction (~06/2022) History of left heart catheterization (05/09/20) History of removal of cyst History of eye surgery Family History Mother Diabetes Myocardial infarction Heart disease High cholesterol Grandmother Parkinson disease Father Prostate cancer Grandfather COPD (chronic obstructive pulmonary disease) Social History Smoking Status: Former smoker Smokeless tobacco user: chewing tobacco how long ago did patient quit smokin years ago second hand exposure: No alcohol intake: current alcohol intake frequency: a few times a month substance use type: does not use caffeine: Yes Type: coffee Number of servings: 3 ROS Const Const: Positive for weakness and difficulty sleeping (Occasional); Negative for fatigue, headache(s) or daytime sleepiness Eyes Eyes: Negative for blind spots, loss of peripheral vision, transient loss of vision, blurry vision or change in vision ENT ENT: Negative for headache(s), dizziness, tinnitus, Nosebleed/epistaxis or balance problems Cardio Chest Pain: No Palpitations: No Edema: Bilateral (L>R) Muscle aches with walking: Bilateral (Occasional) Resp Respiratory: Negative for SOB with activity, SOB at rest, SOB orthopnea\SOB lying down, Cough or paroxysmal nocturnal dyspnea GI GI: Negative nausea, vomiting, heartburn, vomiting blood/hematemesis, bright, red blood in stools or black,tarry stools : Positive for frequent nighttime urination/ nocturia; Negative for hematuria Musc Musc: Negative for balance problems Neuro Neuro: Positive for weakness; Negative for dizziness, lightheadedness, near syncope, syncope, headache(s) or blurry vision Randy Hematologic/Lymphatic: Positive for easy bleeding; Negative for easy bruising Endo Endo: Negative for fatigue Cardiology Exam Const Appearance: cooperative, healthy appearing, comfortable and no acute distress Nutritional Appearance: well nourished and overweight Orientation: alert, awake and oriented x3 Head Head: normal to inspection Ears: hearing grossly normal bilaterally Nose: external nose normal Face and Sinus: face symmetric Mouth: moist mucous membranes Eyes General: appearance normal, both eyes and all related structures Eyelids: eyelids normal EOM: EOM intact bilaterally Neck Neck: normal visual inspection and no JVD Carotids: normal carotid upstroke Chest Chest inspection: normal inspection of the chest, symmetric chest movement and normal respiratory effort; Negative cough Auscultation: Bilateral: Clear to Auscultation Cardio Rate: regular rate Rhythm: regular rhythm Heart sounds: S1 normal and S2 normal; Negative rub, gallop or murmur GI GI: normal to inspection Neuro General: patient alert, patient awake, patient oriented x3 and CN's II-XI intactbilaterally Skin Skin: no rashes or lesions noted Extremities Pulses: Normal: Right Posterior Tibial Pulse, Left Posterior Tibial Pulse, RightRadial Pulse and Left Radial Pulse Lower Extremity Edema: None: Bilateral Psych Psychological: normal affect Supplemental Info Supplemental Information Pharmacologic myocardial perfusion stress test 03/2024 Conclusion: Normal pharmacologic myocardial perfusion stress test. Preserved ejection fraction. Echocardiogram from 02/24/2024: Interpretation Summary Normal LV size. Left ventricular systolic function is normal. The left ventricular ejection fraction is 65 %. Mild concentric left ventricular hypertrophy. Echocardiogram 10/2019: Normal LV size. Left ventricular systolic function is normal. Mild concentric left ventricular hypertrophy. Trivial eccentric mitral valve insufficiency. Structurally normal valves. Stress Test 04/20/2020: Conclusion: Exercise myocardial perfusion stress test with no nuclear images suggestive of ischemia. EKG changes concerning for ischemia. Preserved ejection fraction. Cardiac Catheterization 05/09/2020: PROCEDURE(S) PERFORMED [id number]/COR/LV CLINICAL PROFILE AND INDICATIONS Indications: Suspected CAD Heart Failure: None Stress/Imaging Date: 04/20/20ress Test with SPECT MPI: Indeterminant CAD Presentations: Symptom unlikely to be ischemic. CONCLUSIONS Diffuse coronary artery disease with small vessels noted in the entire coronary vasculature. RECOMMENDATIONS Medical therapy CORONARY ANGIOGRAPHY DOMINANCE: Right Dominant LEFT HEART ASSESSMENT Left Ventricular Ejection Fraction: by LV Gram 55 % Inferior Mid Hypokinesis - Moderate Normal Left Ventricular systolic function Peripheral vascular disease noted. Calcified ulnar noted. LEFT MAIN: Angiographically normal LEFT ANTERIOR DESCENDING ARTERY: Diffusely diseased up to 40 % CIRCUMFLEX ARTERY: Mild luminal irregularities less than 30% RAMUS: Mild luminal irregularities RIGHT CORONARY ARTERY: Mild luminal irregularities RT PDA: Proximal - Diffusely diseased up to 80 % Renal Artery Duplex From 12/25/2023: Interpretation Summary Right renal artery patent with normal velocities and no evidence of stenosis. Left renal artery patent with normal velocities and no evidence of stenosis. Right renal vein patent. Left renal vein patent. Right kidney normal in size. Left kidney normal in size. Anechoic non vascularized area noted within left kidney measuring approximately 1.89cm x 1.63cm. Lower Ext Art Exam w/o Exercise 03/2024 Interpretation Summary Right LEROY 0.82, moderate arterial insufficiency. Doppler/PVR waveforms reveal distal SFA/popliteal disease. Left ELROY 1.07, normal. Doppler/PVR waveforms of the left leg mildly diminished at rest. Labs: HDL Cholesterol, (40-) 57 mg/dL Cholesterol, (<=200) 135 mg/dL Triglycerides, (-199) 80 mg/dL Diagnostics: Electrocardiogram Echocardiogram Stress Test Stress Test Nuclear Medicine Cardiac Catheterization Chest X-Ray Abdomen Ultrasound Abdomen/Pelvis CT Carotid Duplex Extremity Arterial Study Renal Artery Duplex Past Visits: Cardiology Visit Today Assessment and Plan Assessment and Plan (1) Essential hypertension: Status: Chronic Plan: His home blood pressure readings are much better controlled compared to office. Renal duplex on 02/24/2024 showed no evidence of stenosis. Echocardiogram in February 2024 showed mild concentric LVH with an LV function of 65%. Abdomen/pelvis CT scan from October 2023 showed normal adrenal glands. He does not treat his obstructive sleep apnea and does not wish to rediscuss treatment options. 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 transplanted heart: lumbee heart Qualified Code(s): I25.10 - Atherosclerotic heart disease of lumbee coronary artery without angina pectoris Comment: Diffuse coronary artery disease with small vessels noted in the entire coronary vasculature. [facility] 05/09/20 Plan: Patient has a history of coronary artery disease. His most recent cardiac catheterization from 05/2020 demonstrated diffuse coronary artery disease with small vessels noted in the entire coronary vasculature. Pharmacologic stress test in March 2024 was negative for ischemia. Hopefully with better blood pressure control this improves. Risk factor and lifestyle modification encouraged. (3) Mixed hyperlipidemia: Status: Chronic Plan: Lipid panel on 05/15/2024 showed total cholesterol: 135, HDL: 57, triglycerides: 80, and LDL: 62. Heis unable to tolerate statin medication. He is currently on Repatha. (4) LING (dyspnea on exertion): Status: Chronic Plan: At this time, his shortness of breath appears stable. Stress test was negative for ischemia. Echocardiogram February 2024 showed mild concentric LVH and a preserved ejection fraction. We will continue to optimize medication for betterblood pressure control and see how he responds. (5) Claudication of both lower extremities: Status: Chronic Plan: He underwent lower extremity arterial evaluation that showed right LEROY 0.82 and left LEROY 1.07. We did discuss vascular evaluation due to his leg weakness previously. He was encouraged continue with exercise along with current medications. (6) Carotid artery disease: Status: Acute Plan: His last carotid duplex ultrasound was noted to be in October 2019 and showed no significant change compared to previous dated 03/15/2014. He will undergo repeatcarotid duplex ultrasound to assess for progressive disease. Depending on results, further recommendation will be made. Orders: Orders 12 Lead EKG performed by [facility] Today R00.1 - Bradycardia, unspecified Medications: Refilled carvedilol must administer with a meal/food 6.25 mg PO BID 180 tabs 3RF Plan Details Additional Comments: Thank you for allowing us to participate in the patients plan of care, if you have any questions please do not hesitate to call. Plan was reviewed with patient/family member along with red flag symptoms. Understanding was acknowledged. Questions were answered to apparent satisfaction. This note was generated using a voice recognition system and there may be incorrect words, spellingor punctuation that were not noted when reviewing the office note prior to saving. Portions of this documentation were copied and pasted from previous office visitnotes to provide a cohesive continuity of the history. The note has been reviewed, edited, and updated, as necessary. 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 transplanted heart: [place] heart Mixed hyperlipidemia E78.2 LING (dyspnea on exertion) R06.09 Claudication of both lower extremities I73.9 Carotid artery disease I77.9 Coding Level of Care Code Off vis,est,level 4 Diagnoses Essential hypertension I10 Atherosclerosis of lumbee coronary artery of lumbee heart without angina pectoris I25.10 [place] vs. transplanted heart: lumbee heart Mixed hyperlipidemia E78.2 LING (dyspnea on exertion) R06.09 Claudication of both lower extremities I73.9 Carotid artery disease I77.9 Clinical Quality Measures Falls Risk Screening/Assistive Devices Have you fallen in the past year?: No Cardiac Ejection fraction %: 65 11/26/24 1315 P CAN TENDER-C> Date _ [facility] CAN TENDER CAN TENDER-C Cosigner Signature: Date (if applicable) CC: ~ [facility]08-27-2025 Evaluation note* Diagnosis Onset Date Resolution Status Admit Date Acute nasopharyngitis acute Oct 9:28am Abdominal pain acute November 11, 2024 9:58am Chronic sinusitis chronic Novemb er 2024 9:58am Erectile dysfunction chronic Nov 9:58am Essential hypertension chronic Se ptember 2024 9:58am Type 1 diabetes mellitus chronic November 11, 2024 9:58am Carotid artery disease acute Se ptember 2024 9:29am 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 e r 2024 9:29am Claudication of both lower extremities chronic November 26, 2024 9:29am LING (dyspnea on exertion) chronic November 26, 2024 9:29am Essential hypertension chronic Se ptember 2024 9:29am Mixed hyperlipidemia chronic Nov 9:29am Acute rhinosinusitis acute 2024 2:30pm [facility] Work Phone: 1(617) 105-713506-19-2025 Evaluation note* Diagnosis Onset Date Resolution Status Admit Date Neck muscle strain acute August 022024 10:58am Carotid artery disease acute Ju ne 2024 8:53am 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 August 26, 2024 8:53am Claudication of both lower extremities chronic August 26, 2024 8:53am LING (dyspnea on exertion) chronic August 26, 2024 8:53am Essential hypertension chronic 2024 8:53am Mixed hyperlipidemia chronic August 26, 2024 8:53am [facility] [employer] [facility] Work Phone: 1(299) 315-500906-19-2025 Evaluation note* Diagnosis Onset Date Resolution Status Admit Date Neck muscle strain acute August 022024 10:58am Carotid artery disease acute Ju 2024 8:53am 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 August 26, 2024 8:53am Claudication of both lower extremities chronic August 26, 2024 8:53am LING (dyspnea on exertion) chronic August 26, 2024 8:53am Essential hypertension chronic 2024 8:53am Mixed hyperlipidemia chronic August 26, 2024 8:53am Acute nasopharyngitis acute Oct 9:28am [facility] [employer] Work Phone: 1(260) 479-729306-19-2025 Evaluation note* Diagnosis Onset Date Resolution Status Admit Date Neck muscle strain acute August 022024 10:58am Carotid artery disease acute 2024 8:53am 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 August 8:53am Claudication of both lower extremities chronic August 26, 2024 8:53am LING (dyspnea on exertion) chronic August 26, 2024 8:53am Essential hypertension chronic 2024 8:53am Mixed hyperlipidemia chronic August 26, 2024 8:53am Acute nasopharyngitis acute Oct 9:28am Abdominal pain acute November 11, 2024 9:58am Chronic sinusitis chronic Septemb er 2024 9:58am Erectile dysfunction chronic Nov 9:58am Essential hypertension chronic Se pt2024 9:58am Type 1 diabetes mellitus chronic November 11, 2024 9:58am Carotid artery disease acute Se ptember 2024 9:29am 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 Septembe r 2024 9:29am Claudication of both lower extremities chronic November 26, 2024 9:29am LING (dyspnea on exertion) chronic November 26, 2024 9:29am Essential hypertension chronic Se ptember 2024 9:29am Mixed hyperlipidemia chronic Sept emb2024 9:29am [place] [employer] [facility] Work Phone: 1(172) 608-962406-19-2025 [facility] [address] [place] [address] [place] [address] OFFICE VISIT Date of Service: 08/20/24 MR#: [id number] Acct: [id number] Name: OLIVIER MENDOZA Rep #: [id number] : 1960 Provider: SHAUN Lutz Age/Sex: 63/M Location[place] [facility] Status: Signed Intake Vital Signs 08/04/24 13:41 08/20/24 11:06 Height 5 ft 7 in 5 ft 7 in Weight: 169 lb BMI 26.4 BP 188/100 H Blood Pressure Location Lt brachial Position Sitting Respiration 18 Pulse 65 Pulse Source Monitor Temp 97.7 F L Temp Source Temporal Pulse Oximetry (%) 98 Oxygen Delivery Method room air Intake Visit Reasons: PINCHED NERVE IN BACK Chief Complaint: PINCHED NERVE IN BACK Is patient in pain?: Yes (10 right shoulder and neck since Saturday ) Allergies latex Allergy (Unknown, Verified 08/20/24 11:07) Unknown Jeiipmi-XCU-EwM Reductase Inhibitor (Lvabeyq-Cxb-Iux Reductase Inhibitor) Adverse Reaction (Severe,Verified 08/20/24 11:07) muscle pain Medications ?Medication ?Instructions ?Recorded ?Confirmed ?Type insulin lispro 100 unit/mL See Rx Instructions subcut TID 12/04/19 08/20/24 History subcutaneous pen (Humalog KwikPen e10.9 (U-100) Insulin) pen needle, diabetic 31 gauge x #100 ea 01/25/2108/20 Rx 3/16 (BD Ultra-Fine Mini Pen Needle) handicap placard See Rx Instructions .Route 0 05/25/21 08/20/24 Rx .COMPLEX #1 unit insulin glargine 100 unit/mL (3 25 unit subcut DAILY e 10.9 01/01/22 08/20/24 History mL) subcutaneous pen (Lantus Solostar U-100 Insulin) amlodipine 5 mg tablet 5 mg PO DAILY #90 tabs 11/1208/20/24 Rx fluticasone propionate 50 1 spray intranasal DAILY PRN nasal 12/20/23 08/20/24 Rx mcg/actuation nasal congestion #16 grams spray,suspension compress.stocking,knee,reg,lrg #2 ea 01/09/24 08/20/24 Rx tadalafil 5 mg tablet 5 mg PO DAILY 03/11/2408/20 History levothyroxine 150 mcg tablet 150 mcg PO DAILY #90 tabs 04/23/24 08/20/24 Rx blood-glucose sensor (FreeStyle 05/07/24 08/20/24 His tory Daron 2 Plus Sensor device) cholecalciferol (vitamin D3) 50 4,000 unit PO DAILY 08/20/24 History mcg (2,000 unit) capsule omeprazole 40 mg capsule,delayed 40 mg PO QDAY PRN kemal d 05/19/24 08/20/24 History release losartan 100 mg tablet 100 mg PO DAILY #90 TABLETS 06/02/24 08/20/24 Rx evolocumab 140 mg/mL subcutaneous 140 mg subcut Q2W #2 mL 06/19/24 08/20/24 Rx pen injector (Andres Titus) clonidine HCl 0.1 mg tablet 0.1 mg PO BID 30 days #60 tabs 08/04/24 08/20/24 Rx carvedilol 12.5 mg tablet 6.25 mg (1/2 x 12.5 mg) PO B ID #0 08/14/24 08/20/24 Rx tabs hydrochlorothiazide 25 mg tablet 25 mg PO QDAY #90 tab s 08/17/24 08/20/24 Rx cyclobenzaprine 10 mg tablet 10 mg PO TID PRN muscle s pasm #90 08/20/24 08/20/24 Rx tabs Have you fallen in the past year?: No Nurse's Note: pt reports that he has had a pinched nerve in his neck since Saturday states thathe feels he may have slept on his neck wrong and now it is aggravated pt's blood pressure is elevated today 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 is 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 to get BP lowered pt denies any chest pain or shortness of breath at this time 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 tried to take IBU for the neck pain however it sent his blood pressure through the roof so now he no longer uses this [facility] Medical History Claudication of both lower extremities Hilar density Abnormal chest xray Preop cardiovascular exam CKD (chronic kidney disease), stage III GERD (gastroesophageal reflux disease) Chest congestion Preoperative evaluation to rule out surgical contraindication Sinusitis Skin cyst Fatigue Left elbow pain Health care maintenance Proteinuria Nephropathy Bilateral lower extremity edema COVID-19 vaccine series completed Atherosclerotic heart disease of lumbee coronary artery without angina pectoris Mixed hyperlipidemia 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 Diabetic foot ulcer associated with diabetes mellitus due to underlying condition Decubitus ulcer of foot, stage 2 Carotid artery stenosis Bradycardia Granuloma annulare Hypothyroidism BPH (benign prostatic hyperplasia) Abdominal pain Sleep apnea Hearing problem Back problem High calcium levels Type 1 diabetes mellitus Meniere's disease Acquired plantar keratoderma Essential hypertension Surgical History Hx of bilateral cataract extraction (~06/2022) History of left heart catheterization (05/09/20) History of removal of cyst History of eye surgery Family History Mother Diabetes Myocardial infarction Heart disease High cholesterol Grandmother Parkinson disease Father Prostate cancer Grandfather COPD (chronic obstructive pulmonary disease) Social History Smoking Status: Former smoker Smokeless tobacco user: chewing tobacco how long ago did patient quit smokin years ago second hand exposure: No alcohol intake: current alcohol intake frequency: a few times a month substance use type: does not use caffeine: Yes Type: coffee Number of servings: 3 HPI HPI Chief Complaint: PINCHED NERVE IN BACK Details: OLIVIER MENDOZA, is a 63 M who presents to the office today for complaints of right-sided neck pain.States pain started 6 days ago. Patient reports that hefell asleep on the couch and his neck was denise flexed position. Whenever he woke up he noted the neck pain on the right side. He has been using o gmv-wkp-zwfbiod pain patches on the area and notes some improvement when allowing the right arm to dangle feels as it is pulling on his neck supporting the right arm improves pain or lifting right arm over his head relieves the pain. Whenever he is experiencing the pain he rates as a 10 out of 10 pain is worse with movement ROS Const Constitutional: No body ache, chills, excessive sweating, fatigue, fever(s), frequent falls, headache(s), snoring, weight change, sleep problems, abnormal sleep pattern or change in appetite Eyes Eyes: No blurry vision, change in vision, eye pain or Light sensitivity ENT ENT: Positive for neck pain; No abnormal hearing, ear or mastoid pain, tinnitus, nasal congestion, headache(s) or sore throat Resp Respiratory: No cough, shortness of breath, snoring or wheezing Cardio Cardiology: No chest pain at rest, chest pain with exertion, excessive sweating,shortness of breath, dyspnea on exertion, lightheadedness, orthopnea or palpitations Gastro GI: No abdominal pain, change in bowel habits, constipation, cramping, diarrhea,nausea/dyspepsia orvomiting Genitourinary Male: No burning urination, painful urination, urinary incontinence or urinary frequency Musc Musculoskeletal: Positive for neck pain; No abnormal gait, joint pain, back pain, limited range of motion, numbness or tingling Skin Skin: No dry skin, redness, lesions, itchy eyes, rash or wounds Neuro Neurology: No abnormal gait, abnormal hearing, frequent falls, headache(s), memory loss, numbness or tingling Psych Psychiatric: No abnormal sleep pattern, No anxiety, No change in appetite, No irritability, No memory loss and No Thoughts of harming yourself/Others Endo Endocrine: No cold intolerance, excessive sweating, fatigue, flushing, heat intolerance, increased thirst/drinking, increased hunger or weight change Aller/Imm Allergy/Immunologic: No itchy eyes, seasonal allergy symptoms, hives or wheezing Randy/Lymp Hematologic/Lymphatic: No easy bleeding, easy bruising, enlarged lymph nodes or other Exam Const General: cooperative, no acute distress, well groomed and well hydrated Nutritional Appearance: well nourished Orientation: alert and oriented x3 [facility] Head: normal to inspection Ears: hearing grossly normal bilaterally Nose: external nose normal and nares normal Face and sinus: normal facial exam Mouth: oral mucosae normal, lip normal and moist mucous membranes Eyes General: appearance normal, both eyes and all related structures Pupils: PERRL Neck Neck: normal visual inspection, no lymphadenopathy and trachea midline Lymphatic: no lymphadenopathy noted Chest Chest palpation & inspection: normal inspection of the chest Resp Effort & Inspection: normal respiratory effort, able to speak in complete sentences and symmetric chest movement Auscultation: Bilateral: Clear to Auscultation Cardio Palpation: normal PMI Rate: regular rate Rhythm: regular rhythm Heart Sounds: S1 normal and S2 normal Pulses: radial pulses present GI Inspection: normal to inspection Musc Musculoskeletal: Yes decreased range of motion (neck); No joint tenderness, joint redness or muscle weakness Cervical Spine: cervical muscular tenderness ( along the left trapezius muscle) and pain with cervical ROM; No cervical ROM normal or step off deformity Skin General: no rashes or lesions noted Lesions: no lesions Rashes: no rashes Trauma: no lacerations or abrasions Wounds: no wounds Neuro General: patient alert, patient oriented x3 and deep tendon reflexes 2+ bilaterally Speech: speech normal Motor: muscle tone normal throughout Extrem General: normal to inspection and capillary refill normal Psych Appearance: grossly normal and well kempt Coding Level of Care Code Established Pt Off vis,est,level 2 Patient Type Established History Problem Focused Exam Problem Focused Medical Decision Making Low Complexity Diagnoses Strain of neck muscle, initial encounter S16.1XXA Encounter type: initial encounter Time Spent (min) 30 Assessment and Plan Assessment and Plan (1) Neck muscle strain: Status: Acute Qualifiers: Encounter type: initial encounter Qualified Code(s): S16.1XXA - Strain of muscle, fascia and tendonat neck level, initial encounter Plan: Discussed treatment of muscle strain. Rest to prevent overuse of muscle. Applyice to muscle for 15 minutes every hour. Use Tylenol as needed for pain use muscle relaxer Rx sent in for cyclobenzaprine. Discussed side effect of drowsiness while taking this medication. Patient verbalizes understanding. If no improvement please let us know as may benefit from physical therapy if needed. Medications: Refilled cyclobenzaprine 10 mg PO TID PRN 90 tabs 2RF muscle spasm S16.1XXA - Strain of muscle, fascia and tendon at neck level, initial encounter Plan Details Follow Up: As needed Clinical Quality Measures Falls Risk Screening/Assistive Devices Have you fallen in the past year?: No 08/20/24 1201 er CAN TENDER-C> Date _ Riya Lutz CAN TENDER-C Cosigner Signature: Date (if applicable) CC: ~ [facility]06-19-2025 Progress note Author Riya Lutz [facility] Services Note Date/Time August 20, 2024 12:0 1pm [facility] [address] [place], [place] [address] OFFICE VISIT Date of Service: 08/20/24 MR#: [id number] Acct: [id number] Name: OLIVIER MENDOZA Rep #: [id number] : 1960 Provider: SHAUN Lutz Age/Sex: 63/M Location: [facility] Status: Signed Intake Vital Signs 08/04/24 13:41 08/20/24 11:06 Height 5 ft 7 in 5 ft 7 in Weight: 169 lb BMI 26.4 BP 188/100 H Blood Pressure Location Lt brachial Position Sitting Respiration 18 Pulse 65 Pulse Source Monitor Temp 97.7 F L Temp Source Temporal Pulse Oximetry (%) 98 Oxygen Delivery Method room air Intake Visit Reasons: PINCHED NERVE IN BACK Chief Complaint: PINCHED NERVE IN BACK Is patient in pain?: Yes (10 right shoulder and neck since Saturday ) Allergies latex Allergy (Unknown, Verified 08/20/24 11:07) Unknown Doxlnlu-NFM-SlN Reductase Inhibitor (Fsawgsk-Pfe-Hpu Reductase Inhibitor) Adverse Reaction (Severe, Verified 08/20/24 11:07) muscle pain Medications ?Medication ?Instructions ?Recorded ?Confirmed ?Type insulin lispro 100 unit/mL See Rx Instructions subcut TID 12/04/19 08/20/24 History subcutaneous pen (Humalog KwikPen e10.9 (U-100) Insulin) pen needle, diabetic 31 gauge x #100 ea 01/25/2108/20 Rx 05/17 (BD Ultra-Fine Mini Pen Needle) handicap placard See Rx Instructions .Route 0 05/25/21 08/20/24 Rx .COMPLEX #1 unit insulin glargine 100 unit/mL (3 25 unit subcut DAILY e 10.9 01/01/22 08/20/24 History mL) subcutaneous pen (Lantus Solostar U-100 Insulin) amlodipine 5 mg tablet 5 mg PO DAILY #90 tabs 11/1208/20/24 Rx fluticasone propionate 50 1 spray intranasal DAILY PRN nasal 12/20/23 08/20/24 Rx mcg/actuation nasal congestion #16 grams spray,suspension compress.stocking,knee,reg,lrg #2 ea 01/09/24 08/20/24 Rx tadalafil 5 mg tablet 5 mg PO DAILY 03/11/2408/20 History levothyroxine 150 mcg tablet 150 mcg PO DAILY #90 tabs 04/23/24 08/20/24 Rx blood-glucose sensor (FreeStyle 05/07/24 08/20/24 His [email or web address] Daron 2 Plus Sensor device) cholecalciferol (vitamin D3) 50 4,000 unit PO DAILY 08/20/24 History mcg (2,000 unit) capsule omeprazole 40 mg capsule,delayed 40 mg PO QDAY PRN kemal d 05/19/24 08/20/24 History release losartan 100 mg tablet 100 mg PO DAILY #90 TABLETS 06/02/24 08/20/24 Rx evolocumab 140 mg/mL subcutaneous 140 mg subcut Q2W #2 mL 06/19/24 08/20/24 Rx pen injector (Andres Titus) clonidine HCl 0.1 mg tablet 0.1 mg PO BID 30 days #60 tabs 08/04/24 08/20/24 Rx carvedilol 12.5 mg tablet 6.25 mg (1/2 x 12.5 mg) PO B ID #0 08/14/24 08/20/24 Rx tabs hydrochlorothiazide 25 mg tablet 25 mg PO QDAY #90 tab s 08/17/24 08/20/24 Rx cyclobenzaprine 10 mg tablet 10 mg PO TID PRN muscle s pasm #90 08/20/24 08/20/24 Rx tabs Have you fallen in the past year?: No Nurse's Note: pt reports that he has had a pinched nerve in his neck since Saturday states thathe feels he may have slept on his neck wrong and now it is aggravated pt's blood pressure is elevated today 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 is 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 to get BP lowered pt denies any chest pain or shortness of breath at this time 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 tried to take IBU for the neck pain however it sent his blood pressure through the roof so now he no longer uses this PFSH Medical History Claudication of both lower extremities Hilar density Abnormal chest xray Preop cardiovascular exam CKD (chronic kidney disease), stage III GERD (gastroesophageal reflux disease) Chest congestion Preoperative evaluation to rule out surgical contraindication Sinusitis Skin cyst Fatigue Left elbow pain Health care maintenance Proteinuria Nephropathy Bilateral lower extremity edema COVID-19 vaccine series completed Atherosclerotic heart disease of lumbee coronary artery without angina pectoris Mixed hyperlipidemia 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 Diabetic foot ulcer associated with diabetes mellitus due to underlying condition Decubitus ulcer of foot, stage 2 Carotid artery stenosis Bradycardia Granuloma annulare Hypothyroidism BPH (benign prostatic hyperplasia) Abdominal pain Sleep apnea Hearing problem Back problem High calcium levels Type 1 diabetes mellitus Meniere's disease Acquired plantar keratoderma Essential hypertension Surgical History Hx of bilateral cataract extraction (~06/2022) History of left heart catheterization (05/09/20) History of removal of cyst History of eye surgery Family History Mother Diabetes Myocardial infarction Heart disease High cholesterol Grandmother Parkinson disease Father Prostate cancer Grandfather COPD (chronic obstructive pulmonary disease) Social History Smoking Status: Former smoker Smokeless tobacco user: chewing tobacco how long ago did patient quit smokin years ago second hand exposure: No alcohol intake: current alcohol intake frequency: a few times a month substance use type: does not use caffeine: Yes Type: coffee Number of servings: 3 HPI HPI Chief Complaint: PINCHED NERVE IN BACK Details: OLIVIER MENDOZA, is a 63 M who presents to the office today for complaints of right-sided neck pain. States pain started 6 days ago. Patient reports that hefell asleep on the couch and his neck was in a flexed position. Whenever he woke up he noted the neck pain on the right side. He has been using [id number]-shmkiaa pain patches on the area and notes some improvement when allowing the right arm to dangle feels as it is pulling on his neck supporting the right arm improves pain or lifting right arm over his head relieves the pain. Whenever he is experiencing the pain he rates as a 10 out of 10 pain is worse with movement ROS Const Constitutional: No body ache, chills, excessive sweating, fatigue, fever(s), frequent falls, headache(s), snoring, weight change, sleep problems, abnormal sleep pattern or change in appetite Eyes Eyes: No blurry vision, change in vision, eye pain or Light sensitivity ENT ENT: Positive for neck pain; No abnormal hearing, ear or mastoid pain, tinnitus, nasal congestion, headache(s) or sore throat Resp Respiratory: No cough, shortness of breath, snoring or wheezing Cardio Cardiology: No chest pain at rest, chest pain with exertion, excessive sweating,shortness of breath, dyspnea on exertion, lightheadedness, orthopnea or palpitations Gastro GI: No abdominal pain, change in bowel habits, constipation, cramping, diarrhea,nausea/dyspepsia or vomiting Genitourinary Male: No burning urination, painful urination, urinary incontinence or urinary frequency Musc Musculoskeletal: Positive for neck pain; No abnormal gait, joint pain, back pain, limited range of motion, numbness or tingling Skin Skin: No dry skin, redness, lesions, itchy eyes, rash or wounds Neuro Neurology: No abnormal gait, abnormal hearing, frequent falls, headache(s), memory loss, numbness or tingling Psych Psychiatric: No abnormal sleep pattern, No anxiety, No change in appetite, No irritability, No memory loss and No Thoughts of harming yourself/Others Endo Endocrine: No cold intolerance, excessive sweating, fatigue, flushing, heat intolerance, increased thirst/drinking, increased hunger or weight change Aller/Imm Allergy/Immunologic: No itchy eyes, seasonal allergy symptoms, hives or wheezing Randy/Lymp Hematologic/Lymphatic: No easy bleeding, easy bruising, enlarged lymph nodes or other Exam Const General: cooperative, no acute distress, well groomed and well hydrated Nutritional Appearance: well nourished Orientation: alert and oriented x3 HENMT Head: normal to inspection Ears: hearing grossly normal bilaterally Nose: external nose normal and nares normal Face and sinus: normal facial exam Mouth: oral mucosae normal, lip normal and moist mucous membranes Eyes General: appearance normal, both eyes and all related structures Pupils: PERRL Neck Neck: normal visual inspection, no lymphadenopathy and trachea midline Lymphatic: no lymphadenopathy noted Chest Chest palpation & inspection: normal inspection of the chest Resp Effort & Inspection: normal respiratory effort, able to speak in complete sentences and symmetric chest movement Auscultation: Bilateral: Clear to Auscultation Cardio Palpation: normal PMI Rate: regular rate Rhythm: regular rhythm Heart Sounds: S1 normal and S2 normal Pulses: radial pulses present GI Inspection: normal to inspection Musc Musculoskeletal: Yes decreased range of motion (neck); No joint tenderness, joint redness or muscle weakness Cervical Spine: cervical muscular tenderness ( along the left trapezius muscle) and pain with cervical ROM; No cervical ROM normal or step off deformity Skin General: no rashes or lesions noted Lesions: no lesions Rashes: no rashes Trauma: no lacerations or abrasions Wounds: no wounds Neuro General: patient alert, patient oriented x3 and deep tendon reflexes 2+ bilaterally Speech: speech normal Motor: muscle tone normal throughout Extrem General: normal to inspection and capillary refill normal Psych Appearance: grossly normal and well kempt Coding Level of Care Code Established Pt Off vis,est,level 2 Patient Type Established History Problem Focused Exam Problem Focused Medical Decision Making Low Complexity Diagnoses Strain of neck muscle, initial encounter S16.1XXA Encounter type: initial encounter Time Spent (min) 30 Assessment and Plan Assessment and Plan (1) Neck muscle strain: Status: Acute Qualifiers: Encounter type: initial encounter Qualified Code(s): S16.1XXA - Strain of muscle, fascia and tendon at neck level, initial encounter Plan: Discussed treatment of muscle strain. Rest to prevent overuse of muscle. Applyice to muscle for 15 minutes every hour. Use Tylenol as needed for pain use muscle relaxer Rx sent in for cyclobenzaprine. Discussed side effect of drowsiness while taking this medication. Patient verbalizes understanding. If no improvement please let us know as may benefit from physical therapy if needed. Medications: Refilled cyclobenzaprine 10 mg PO TID PRN 90 tabs 2RF muscle spasm S16.1XXA - Strain of muscle, fascia and tendon at neck level, initial encounter Plan Details Follow Up: As needed Clinical Quality Measures Falls Risk Screening/Assistive Devices Have you fallen in the past year?: No 08/20/24 1201 <Electronically signed by Riya Shay er CAN TENDER-C> Date _ Riya De Leonr CAN TENDER-C Cosigner Signature: Date (if applicable) CC: ~ [facility] Work Phone: 1(207) 958-945106-03-2025 Discharge summary [facility] Medical Records Department [address] [place] [address] Emergency Department Summary 08/04/24 MR#: [id number] Acct: [id number] Name: OLIVIER MENDOZA Rep #:[id number] : 1960 63 From: Denzel Carlin DO PCP: Dr. Sherice Avendano MD Status:R ER Location: ED HPI History of Present Illness Chief Complaint: Hypertension Narrative Narrative: Patient is a 63-year-old male with a past medical history of CKD stage III, GERD, hypothyroidism, [place], type 1 diabetes, M?ni?re's disease who presented to the emergency department with a chief complaint of high blood pressure. Patientstates that recently his doctor has been change his blood pressure medications and ever since then his blood pressure is running extremely high. He notes thathe was at the dentist and noted that his blood pressure was elevated therefore they sent him here to be evaluated. Patient remains asymptomatic has no complaints at this point time he states that he feels well overall. States thatthe cardiology team is working on his blood pressure management. he states thatrecently he had a stress test and an entire workup [facility] Medical History Claudication of both lower extremities Hilar density Abnormal chest xray Preop cardiovascular exam CKD (chronic kidney disease), stage III GERD (gastroesophageal reflux disease) Chest congestion Preoperative evaluation to rule out surgical contraindication Sinusitis Skin cyst Fatigue Left elbow pain Health care maintenance Proteinuria Nephropathy Bilateral lower extremity edema COVID-19 vaccine series completed Atherosclerotic heart disease of lumbee coronary artery without angina pectoris Mixed hyperlipidemia 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 Diabetic foot ulcer associated with diabetes mellitus due to underlying condition Decubitus ulcer of foot, stage 2 Carotid artery stenosis Bradycardia Granuloma annulare Hypothyroidism BPH (benign prostatic hyperplasia) Abdominal pain Sleep apnea Hearing problem Back problem High calcium levels Type 1 diabetes mellitus Meniere's disease Acquired plantar keratoderma Essential hypertension Home Medications ?Medication ?Instructions ?Recorded ?Last Taken ?Type insulin lispro 100 unit/mL See Rx Instructions subcut TID 12/04/19 08/04/24 History subcutaneous pen (Humalog KwikPen e10.9 (U-100) Insulin) pen needle, diabetic 31 gauge x #100 ea 01/25/21 Unkno wn Rx 05/17 (BD Ultra-Fine Mini Pen Needle) handicap placard See Rx Instructions .Route 0 05/25/21 Unknown Rx .COMPLEX #1 unit insulin glargine 100 unit/mL (3 25 unit subcut DAILY e 10.9 01/01/22 08/04/24 History mL) subcutaneous pen (Lantus Solostar U-100 Insulin) amlodipine 5 mg tablet 5 mg PO DAILY #90 tabs 11/1208/04/24 Rx fluticasone propionate 50 1 spray intranasal DAILY PRN nasal 12/20/23 Unknown Rx mcg/actuation nasal congestion #16 grams spray,suspension compress.stocking,knee,reg,lrg #2 ea 01/09/24 Unknown Rx tadalafil 5 mg tablet 5 mg PO DAILY 03/11/2408/03 History levothyroxine 150 mcg tablet 150 mcg PO DAILY #90 tabs 04/23/24 08/04/24 Rx blood-glucose sensor (FreeStyle 05/07/24 Unknown Hist ory Daron 2 Plus Sensor device) cholecalciferol (vitamin D3) 50 4,000 unit PO DAILY 08/04/24 History mcg (2,000 unit) capsule omeprazole 40 mg capsule,delayed 40 mg PO QDAY PRN kemal d 05/19/24 Unknown History release carvedilol 12.5 mg tablet 12.5 mg PO BID #180 tabs 08/04/24 Rx furosemide 40 mg tablet 40 mg PO QAM #90 tabs 08/04/24 Rx losartan 100 mg tablet 100 mg PO DAILY #90 TABLETS 06/02/24 08/03/24 Rx evolocumab 140 mg/mL subcutaneous 140 mg subcut Q2W #2 mL 06/19/24 07/06/24 Rx pen injector (Andres Titus) clonidine HCl 0.1 mg tablet 0.1 mg PO BID 30 days #60 tabs 08/04/24 Unknown Rx Allergy/AdvReac Type Severity Reaction Status Date / Time latex Allergy Unknown Unknown Verified 08/04/24 13:41 Tzzeeba-BDS-MhM Reductase AdvReac Severe muscle pain Verified 08/04/24 13:41 Inhibitor (Ggukarr-Xov-Euy Reductase Inhibitor) Family History Mother Diabetes Myocardial infarction Heart disease High cholesterol Grandmother Parkinson disease Father Prostate cancer Grandfather COPD (chronic obstructive pulmonary disease) Surgical History Hx of bilateral cataract extraction (~06/2022) History of left heart catheterization (05/09/20) History of removal of cyst History of eye surgery Social History Smoking Status: Former smoker Smokeless tobacco user: chewing tobacco how long ago did patient quit smokin years ago second hand exposure: No alcohol intake: current alcohol intake frequency: a few times a month substance use type: does not use caffeine: Yes Type: coffee Number of servings: 3 ROS ROS ED ROS Narrative Constitutional: Denies headache, lightness, dizziness Eyes: Denies change in vision double vision blurry vision Cardiovascular: Denies chest pain Respiratory: Denies coughing wheezing shortness of breath Abdomen: Denies abdominal pain nausea vomit diarrhea : Denies urinary symptoms Neurological: Denies numbness, weakness, tingling Musculoskeletal: Denies back pain Skin: Denies any rashes or lesions EXAM Physical Exam Narrative Exam Narrative: General: Patient lying bed rest comfortably did not appear to be in acute distress Head: Atraumatic, normocephalic Eyes: PERRL bilaterally, EOMI bilateral, no conjunctival injection noted Neck: Soft, supple, trachea midline Cardiovascular: Regular in rhythm no murmurs gallops rubs noted Respiratory: Clear to auscultation bilaterally no rales rhonchi or wheezes noted Abdomen: Soft, nondistended, nontender to palpation Extremities: +5/5 strength noted in the bilateral upper and lower extremities, radial pulses +2/4 in the bilateral extremities, no pedal edema on exam Neurological: Patient follow commands knew that he was at [facility] year is 2024 Skin: Warm, dry, tact no rashes or lesions noted Const Vital Signs: 08/04/24 13:41 08/04/24 13:55 08/04/24 14:07 Temperature 97.8 F Temperature Source Temporal Pulse Rate 71 Respiratory Rate 18 Respiratory Effort Respiratory Pattern Blood Pressure 216/87 H 232/84 H Blood Pressure Mean 130 133 Pulse Ox 98 Oxygen Delivery Method Room Air Room Air 08/04/24 14:07 08/04/24 14:40 08/04/24 15:30 Temperature Temperature Source Pulse Rate 72 72 Respiratory Rate 14 18 Respiratory Effort Normal Respiratory Pattern Normal Blood Pressure 198/69 H Blood Pressure Mean 112 Pulse Ox 97 Oxygen Delivery Method Room Air 08/04/24 16:31 08/04/24 17:00 Temperature Temperature Source Pulse Rate 55 L 59 L Respiratory Rate 18 21 H Respiratory Effort Respiratory Pattern Blood Pressure 137/47 H 151/74 H Blood Pressure Mean 77 99 Pulse Ox 92 99 Oxygen Delivery Method MDM MDM MDM Narrative Medical decision making narrative: Patient is a 63-year-old male who presents to the emergency department chief complaint of hypertension. On the differential diagnose includes but not limited to essential hypertension, hypertensive emergency, ACS. Once workup is obtained reviewed he will be reevaluated. Manual blood pressure was obtained and he was hypertensive 232/84 therefore he was given 0.2 mg of clonidine. Patient is on 5 mg amlodipine daily, 12.5 mg of carvedilol, doxazosin 4 mg, furosemide 40 mg daily,100 mg losartan Patient CBC was reviewed showed no evidence of cytosis white blood count 713, hemoglobin 0.6, platecount of 404. Patient sodium 136, potassium elevated at 5.3, creatinine was 2.20 which he does haveunderlying chronic kidney disease however was elevated from a June 10, 2024 blood drawl, troponin was elevated to 35 delta troponin pending. Patient's EKG reviewed showed sinus rhythm with a rate of [address] changes noted in the inferior lateral leads. Patient chest x-ray reviewedby myself and by radiology showed chronic interstitial lung disease borderline cardiomegaly no significant change. Will back and discussed the results with the patient and he states that he has too much to do and he does not want stay in the hospital he states that he will sign out AGAINST MEDICAL ADVICE. I told him since he is doing this I will reachout to cardiology to see if they have any advice on any medication adjustments. Patient's delta troponin came back and it was noted to be 32. I called and discussed with Dr. Redmond and after our discussion we had an agreement on discontinuing the doxazosin and starting clonidine 0.1 mg twice daily. He was advising the patient to follow-up closely in the office and call for an appointment tomorrow. He was also recommending taking all his medications to the office with him that he is on as well. I discussed this plan with the patient he is agreeable to this plan he once again would like to sign out AGAINST MEDICAL ADVICE. Prescription for 0.1 mg ofclonidine twice daily was sent to the pharmacy he was advised stop the doxazosinand encouraged return with worsening symptoms or concerns. He isadvised to follow closely with his doctors and return with any other concerns. All question concerns answered at bedside. Lab Data Labs: Laboratory Results - last 24 hr 08/04/24 08/04/24 14:12 16:32 WBC 7.3 RBC 4.00 L Hgb 11.6 L Hct 35.2 L MCV 88.0 MCH 29.0 MCHC 33.0 RDW Std Deviation 46.0 H RDW Coeff of Jesus 14.4 Plt Count 404 MPV 8.7 Immature Gran % (Auto) 0.300 Neut % (Auto) 74.3 H Lymph % (Auto) 13.9 L [place] % (Auto) 7.4 Eos % (Auto) 3.7 Baso % (Auto) 0.4 Absolute Neuts (auto) 5.4 Absolute Lymphs (auto) 1.01 Nucleated RBC % 0 Sodium 136 Potassium 5.3 H Chloride 102 Carbon Dioxide 24.7 Anion Gap 10 BUN 37 H Creatinine 2.20 H Estim Creat Clear Calc 31.30 L Est GFR (MDRD) Non-Af 32 L BUN/Creatinine Ratio 16.7 Glucose 130 H Calcium 9.3 Troponin T High Sens 35 H Troponin T Hi Sens 2 Hr 32 H Radiography Diagnostic Testing: Clinical Impression(s) from Imaging Studies Chest X-Ray 08/04/24 14:27 IMPRESSION: Chronic interstitial lung disease. Borderline cardiomegaly. No significant change. Reading Location: [id number] Discharge Plan Triage Chief Complaint: Hypertension ED Provider: Denzel Carlin Dx/Rx/DC Orders Clinical Impression: Essential hypertension, CKD (chronic kidney disease), stage III Prescriptions: New clonidine HCl 0.1 mg tablet 0.1 mg PO BID 30 Days Qty: 60 0RF Discontinued doxazosin 4 mg tablet 4 mg PO QHS Qty: 90 3RF No Action insulin glargine [Lantus Solostar U-100 Insulin] 100 unit/mL (3 mL) insulin pen 25 unit SC DAILY Humalog KwikPen Insulin 100 unit/mL insulin pen See Rx Instructions SC TID Dose Instruction: 12 units to 16 units SC TID; 12 units to 16 units SC TID Rx Instructions: 12 units to 18 units SC TID; 12 units to 18 units SC TID cholecalciferol (vitamin D3) 50 mcg (2,000 unit) capsule 4,000 unit PO DAILY tadalafil 5 mg tablet 5 mg PO DAILY Patient Comments: TAKE 1 TABLET BY MOUTH ONCE DAILY (DME) compress.stocking,knee,reg,lrg Misc See Rx Instructions .MEDSUPPLY Qty: 2 1RF Rx Instructions: wear daily for venous insufficiency 20-30 mmHg (DME) FreeStyle Daron 2 Plus Sensor Device See Rx Instructions .ROUTE Rx Instructions: As directed omeprazole 40 mg capsule,delayed release(DR/EC) 40 mg PO QDAY PRN (Reason: gerd) (DME) pen needle, diabetic [BD Ultra-Fine Mini Pen Needle] 31 gauge x 3/16 needle See Rx Instructions .ROUTE .MEDSUPPLY Qty: 100 3RF Rx Instructions: use as directed four times a day handicap placard See Rx Instructions .ROUTE .COMPLEX Qty: 1 0RF Rx Instructions: Duration 5 years for reduced mobility amlodipine 5 mg tablet 5 mg PO DAILY Qty: 90 3RF fluticasone propionate 50 mcg/actuation spray,suspension 1 spray INTRANASAL DAILY PRN (Reason: nasal congestion) Qty: 16 3RF levothyroxine 150 mcg tablet 150 mcg PO DAILY Qty: 90 1RF furosemide 40 mg tablet 40 mg PO QAM Qty: 90 3RF carvedilol 12.5 mg tablet 12.5 mg PO BID Qty: 180 3RF Rx Instructions: must administer with a meal/food losartan 100 mg tablet 100 mg PO DAILY Qty: 90 1RF Repatha SureClick 140 mg/mL pen injector 140 mg subcut Q2W Qty: 2 11RF Primary Care Provider: Sherice Avendano Referrals: Sherice Avendano MD [Primary Care Provider] - Activity Restrictions/Additional Instructions: Follow-up with your cardiology team as soon as possible give their office a callfor an appointment as soon as possible. Stop taking doxazosin and start taking the clonidine that was sent to your pharmacy as prescribed. Ensure you take a dose tonight. Return with worsening symptoms or other concerns. Print Language: Togolese Disposition Disposition: Home, Self Care What to do if you have Problems For any increased pain, shortness of breath, bleeding, nausea or vomiting, chestpain, or any unexpected problems, contact your Primary Care Provider. Call [facility] ([phone]) or report tothe closest Emergency Room. Call 911 if necessary. 08/04/24 1735 Cosigner Signature (if applicable): CC: Dr. Sherice Avendano MD ~ Signed [facility]06-03-2025 Radiology Diagnostic study note [facility] Imaging Services [address] [place] [address] Chest PA and Lateral MR#: [id number] Acct: [id number] Name: OLIVIER MENDOZA Rep #: [id number] : 1960 M 63 From: Dieudonne Mckinley MD PCP: Dr. Sherice Avendano MD Status: R ER Study:Chest PA and Lateral Date of Exam: 08/04/24 Exam# [id number] Ordering Dr: Preston Carlin DO PROCEDURE: CHEST PA AND LATERAL 08/04/2024 REASON FOR EXAM: HTN TECHNIQUE: Frontal and lateral views of the chest. COMPARISON: Two-view chest, 01/09/2020. FINDINGS: There is chronic bronchial wall thickening extending from both oliver. There is no lobar consolidation or pleural effusion. The heart size is upper limits of normal. There is calcific vascular disease of thethoracic aorta. The upper abdominal bowel gas pattern is normal. There are no bony abnormalities. RAD/Chest PA and Lateral IMPRESSION: Chronic interstitial lung disease. Borderline cardiomegaly. No significant change. Reading Location: [id number] CC: Dr. Sherice Avendano MD; Dr. Denzel Carlin DO ~ Aerospace Project Engineer: Signed [facility] Work Phone: 1(248) 307-302206-03-2025 Discharge summary Author Denzel Carlin [facility] Note Date/Time August 04, 2024 5:35p m [facility] Medical Records Department [address] [place] [address] Emergency Department Summary 08/04/24 MR#: [id number] Acct: [id number] Name: OLIVIER MENDOZA Rep #:[id number] : 1960 63 From: Denzel Carlin DO PCP: Dr. Sherice Avendano MD Status:R EG ER Location: ED HPI History of Present Illness Chief Complaint: Hypertension Narrative Narrative: Patient is a 63-year-old male with a past medical history of CKD stage III, GERD, hypothyroidism, [place], type 1 diabetes, M?ni?re's disease who presented to the emergency department with a chief complaint of high blood pressure. Patientstates that recently his doctor has been change his blood pressure medications and ever since then his blood pressure is running extremely high. He notes thathe was at the dentist and noted that his blood pressure was elevated therefore they sent him here to be evaluated. Patient remains asymptomatic has no complaints at this point time he states that he feels well overall. States thatthe cardiology team is working on his blood pressure management. he states thatrecently he had a stress test and an entire workup [facility] Medical History Claudication of both lower extremities Hilar density Abnormal chest xray Preop cardiovascular exam CKD (chronic kidney disease), stage III GERD (gastroesophageal reflux disease) Chest congestion Preoperative evaluation to rule out surgical contraindication Sinusitis Skin cyst Fatigue Left elbow pain Health care maintenance Proteinuria Nephropathy Bilateral lower extremity edema COVID-19 vaccine series completed Atherosclerotic heart disease of lumbee coronary artery without angina pectoris Mixed hyperlipidemia 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 Diabetic foot ulcer associated with diabetes mellitus due to underlying condition Decubitus ulcer of foot, stage 2 Carotid artery stenosis Bradycardia Granuloma annulare Hypothyroidism BPH (benign prostatic hyperplasia) Abdominal pain Sleep apnea Hearing problem Back problem High calcium levels Type 1 diabetes mellitus Meniere's disease Acquired plantar keratoderma Essential hypertension Home Medications ?Medication ?Instructions ?Recorded ?Last Taken ?Type insulin lispro 100 unit/mL See Rx Instructions subcut TID 12/04/19 08/04/24 History subcutaneous pen (Humalog KwikPen e10.9 (U-100) Insulin) pen needle, diabetic 31 gauge x #100 ea 01/25/21 Unkno wn Rx 05/17 (BD Ultra-Fine Mini Pen Needle) handicap placard See Rx Instructions .Route 0 05/25/21 Unknown Rx .COMPLEX #1 unit insulin glargine 100 unit/mL (3 25 unit subcut DAILY e 10.9 01/01/22 08/04/24 History mL) subcutaneous pen (Lantus Solostar U-100 Insulin) amlodipine 5 mg tablet 5 mg PO DAILY #90 tabs 11/1208/04/24 Rx fluticasone propionate 50 1 spray intranasal DAILY PRN nasal 12/20/23 Unknown Rx mcg/actuation nasal congestion #16 grams spray,suspension compress.stocking,knee,reg,lrg #2 ea 01/09/24 Unknown Rx tadalafil 5 mg tablet 5 mg PO DAILY 03/11/2408/03 History levothyroxine 150 mcg tablet 150 mcg PO DAILY #90 tabs 04/23/24 08/04/24 Rx blood-glucose sensor (FreeStyle 05/07/24 Unknown Hist orStandard Media Index Daron 2 Plus Sensor device) cholecalciferol (vitamin D3) 50 4,000 unit PO DAILY 08/04/24 History mcg (2,000 unit) capsule omeprazole 40 mg capsule,delayed 40 mg PO QDAY PRN kemal d 05/19/24 Unknown History release carvedilol 12.5 mg tablet 12.5 mg PO BID #180 tabs 08/04/24 Rx furosemide 40 mg tablet 40 mg PO QAM #90 tabs 08/04/24 Rx losartan 100 mg tablet 100 mg PO DAILY #90 TABLETS 06/02/24 08/03/24 Rx evolocumab 140 mg/mL subcutaneous 140 mg subcut Q2W #2 mL 06/19/24 07/06/24 Rx pen injector (Andres Titus) clonidine HCl 0.1 mg tablet 0.1 mg PO BID 30 days #60 tabs 08/04/24 Unknown Rx Allergy/AdvReac Type Severity Reaction Status Date / Time latex Allergy Unknown Unknown Verified 08/04/24 13:41 Mapwpbm-SIY-PhD Reductase AdvReac Severe muscle pain Verified 08/04/24 13:41 Inhibitor (Rslqnrz-Fya-Lxq Reductase Inhibitor) Family History Mother Diabetes Myocardial infarction Heart disease High cholesterol Grandmother Parkinson disease Father Prostate cancer Grandfather COPD (chronic obstructive pulmonary disease) Surgical History Hx of bilateral cataract extraction (~06/2022) History of left heart catheterization (05/09/20) History of removal of cyst History of eye surgery Social History Smoking Status: Former smoker Smokeless tobacco user: chewing tobacco how long ago did patient quit smokin years ago second hand exposure: No alcohol intake: current alcohol intake frequency: a few times a month substance use type: does not use caffeine: Yes Type: coffee Number of servings: 3 ROS ROS ED ROS Narrative Constitutional: Denies headache, lightness, dizziness Eyes: Denies change in vision double vision blurry vision Cardiovascular: Denies chest pain Respiratory: Denies coughing wheezing shortness of breath Abdomen: Denies abdominal pain nausea vomit diarrhea : Denies urinary symptoms Neurological: Denies numbness, weakness, tingling Musculoskeletal: Denies back pain Skin: Denies any rashes or lesions EXAM Physical Exam Narrative Exam Narrative: General: Patient lying bed rest comfortably did not appear to be in acute distress Head: Atraumatic, normocephalic Eyes: PERRL bilaterally, EOMI bilateral, no conjunctival injection noted Neck: Soft, supple, trachea midline Cardiovascular: Regular in rhythm no murmurs gallops rubs noted Respiratory: Clear to auscultation bilaterally no rales rhonchi or wheezes noted Abdomen: Soft, nondistended, nontender to palpation Extremities: +5/5 strength noted in the bilateral upper and lower extremities, radial pulses +2/4 in the bilateral extremities, no pedal edema on exam Neurological: Patient follow commands knew that he was at [facility] year is 2024 Skin: Warm, dry, tact no rashes or lesions noted Const Vital Signs: 08/04/24 13:41 08/04/24 13:55 08/04/24 14:07 Temperature 97.8 F Temperature Source Temporal Pulse Rate 71 Respiratory Rate 18 Respiratory Effort Respiratory Pattern Blood Pressure 216/87 H 232/84 H Blood Pressure Mean 130 133 Pulse Ox 98 Oxygen Delivery Method Room Air Room Air 08/04/24 14:07 08/04/24 14:40 08/04/24 15:30 Temperature Temperature Source Pulse Rate 72 72 Respiratory Rate 14 18 Respiratory Effort Normal Respiratory Pattern Normal Blood Pressure 198/69 H Blood Pressure Mean 112 Pulse Ox 97 Oxygen Delivery Method Room Air 08/04/24 16:31 08/04/24 17:00 Temperature Temperature Source Pulse Rate 55 L 59 L Respiratory Rate 18 21 H Respiratory Effort Respiratory Pattern Blood Pressure 137/47 H 151/74 H Blood Pressure Mean 77 99 Pulse Ox 92 99 Oxygen Delivery Method MDM MDM MDM Narrative Medical decision making narrative: Patient is a 63-year-old male who presents to the emergency department chief complaint of hypertension. On the differential diagnose includes but not limited to essential hypertension, hypertensive emergency, ACS. Once workup is obtained reviewed he will be reevaluated. Manual blood pressure was obtained and he was hypertensive 232/84 therefore he was given 0.2 mg of clonidine. Patient is on 5 mg amlodipine daily, 12.5 mg of carvedilol, doxazosin 4 mg, furosemide 40 mg daily, 100 mg losartan Patient CBC was reviewed showed no evidence of cytosis white blood count 713, hemoglobin 0.6, plate count of 404. Patient sodium 136, potassium elevated at 5.3, creatinine was 2.20 which he does have underlying chronic kidney disease however was elevated from a June 10, 2024 blood drawl, troponin was elevated to 35 delta troponin pending. Patient's EKG reviewed showed sinus rhythm with a rate of [address] changes noted in the inferior lateral leads. Patient chest x-ray reviewed by myself and by radiology showed chronic interstitial lung disease borderline cardiomegaly no significant change. Will back and discussed the results with the patient and he states that he has too much to do and he does not want stay in the hospital he states that he will sign out AGAINST MEDICAL ADVICE. I told him since he is doing this I will reachout to cardiology to see if they have any advice on any medication adjustments. Patient's delta troponin came back and it was noted to be 32. I called and discussed with Dr. Redmond and after our discussion we had an agreement on discontinuing the doxazosin and starting clonidine 0.1 mg twice daily. He was advising the patient to follow-up closely in the office and call for an appointment tomorrow. He was also recommending taking all his medications to the office with him that he is on as well. I discussed this plan with the patient he is agreeable to this plan he once again would like to sign out AGAINST MEDICAL ADVICE. Prescription for 0.1 mg ofclonidine twice daily was sent to the pharmacy he was advised stop the doxazosinand encouraged return with worsening symptoms or concerns. He is advised to follow closely with his doctors and return with any other concerns. All question concerns answered at bedside. Lab Data Labs: Laboratory Results - last 24 hr 08/04/24 08/04/24 14:12 16:32 WBC 7.3 RBC 4.00 L Hgb 11.6 L Hct 35.2 L MCV 88.0 MCH 29.0 MCHC 33.0 RDW Std Deviation 46.0 H RDW Coeff of Jesus 14.4 Plt Count 404 MPV 8.7 Immature Gran % (Auto) 0.300 Neut % (Auto) 74.3 H Lymph % (Auto) 13.9 L [place] % (Auto) 7.4 Eos % (Auto) 3.7 Baso % (Auto) 0.4 Absolute Neuts (auto) 5.4 Absolute Lymphs (auto) 1.01 Nucleated RBC % 0 Sodium 136 Potassium 5.3 H Chloride 102 Carbon Dioxide 24.7 Anion Gap 10 BUN 37 H Creatinine 2.20 H Estim Creat Clear Calc 31.30 L Est GFR (MDRD) Non-Af 32 L BUN/Creatinine Ratio 16.7 Glucose 130 H Calcium 9.3 Troponin T High Sens 35 H Troponin T Hi Sens 2 Hr 32 H Radiography Diagnostic Testing: Clinical Impression(s) from Imaging Studies Chest X-Ray 08/04/24 14:27 IMPRESSION: Chronic interstitial lung disease. Borderline cardiomegaly. No significant change. Reading Location: [id number] Discharge Plan Triage Chief Complaint: Hypertension ED Provider: Denzel Carlin Dx/Rx/DC Orders Clinical Impression: Essential hypertension, CKD (chronic kidney disease), stage III Prescriptions: New clonidine HCl 0.1 mg tablet 0.1 mg PO BID 30 Days Qty: 60 0RF Discontinued doxazosin 4 mg tablet 4 mg PO QHS Qty: 90 3RF No Action insulin glargine [Lantus Solostar U-100 Insulin] 100 unit/mL (3 mL) insulin pen 25 unit SC DAILY Humalog KwikPen Insulin 100 unit/mL insulin pen See Rx Instructions SC TID Dose Instruction: 12 units to 16 units SC TID; 12 units to 16 units SC TID Rx Instructions: 12 units to 18 units SC TID; 12 units to 18 units SC TID cholecalciferol (vitamin D3) 50 mcg (2,000 unit) capsule 4,000 unit PO DAILY tadalafil 5 mg tablet 5 mg PO DAILY Patient Comments: TAKE 1 TABLET BY MOUTH ONCE DAILY (DME) compress.stocking,knee,reg,lrg Misc See Rx Instructions .MEDSUPPLY Qty: 2 1RF Rx Instructions: wear daily for venous insufficiency 20-30 mmHg (DME) FreeStyle Daron 2 Plus Sensor Device See Rx Instructions .ROUTE Rx Instructions: As directed omeprazole 40 mg capsule,delayed release(DR/EC) 40 mg PO QDAY PRN (Reason: gerd) (DME) pen needle, diabetic [BD Ultra-Fine Mini Pen Needle] 31 gauge x 3/16 needle See Rx Instructions .ROUTE .MEDSUPPLY Qty: 100 3RF Rx Instructions: use as directed four times a day handicap placard See Rx Instructions .ROUTE .COMPLEX Qty: 1 0RF Rx Instructions: Duration 5 years for reduced mobility amlodipine 5 mg tablet 5 mg PO DAILY Qty: 90 3RF fluticasone propionate 50 mcg/actuation spray,suspension 1 spray INTRANASAL DAILY PRN (Reason: nasal congestion) Qty: 16 3RF levothyroxine 150 mcg tablet 150 mcg PO DAILY Qty: 90 1RF furosemide 40 mg tablet 40 mg PO QAM Qty: 90 3RF carvedilol 12.5 mg tablet 12.5 mg PO BID Qty: 180 3RF Rx Instructions: must administer with a meal/food losartan 100 mg tablet 100 mg PO DAILY Qty: 90 1RF Repatha SureClick 140 mg/mL pen injector 140 mg subcut Q2W Qty: 2 11RF Primary Care Provider: Sherice Avendano Referrals: Sherice Avendano MD [Primary Care Provider] - Activity Restrictions/Additional Instructions: Follow-up with your cardiology team as soon as possible give their office a callfor an appointment as soon as possible. Stop taking doxazosin and start taking the clonidine that was sent to your pharmacy as prescribed. Ensure you take a dose tonight. Return with worsening symptoms or other concerns. Print Language: Togolese Disposition Disposition: Home, Self Care What to do if you have Problems For any increased pain, shortness of breath, bleeding, nausea or vomiting, chestpain, or any unexpected problems, contact your Primary Care Provider. Call [facility] ([phone]) or report to the closest Emergency Room. Call 911 if necessary. 08/04/24 1736 <Electronically signed by Denzel Carlin DO> Cosigner Signature (if applicable): CC: Dr. Sherice Avendano MD ~ Signed [facility] Work Phone: 1(581) 181-656203-06-2025 Evaluation note* Diagnosis Onset Date Resolution Status Admit Date Bilateral lower extremity edema 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 leonard May 07, 2024 1:24pm BPH (benign prostatic hyperplasia) chronic May 07, 2024 1:24pm CKD (chronic kidney disease) , stage III chronic May 07, 2024 1:24pm Essential hypertension chronic [facility] 2024 1:24pm GERD (gastroesophageal reflu x disease) chronic May 07, 2024 1:24pm Mixed hyperlipidemia chronic [facility] 2024 1:24pm 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 May 19, 2024 10:27am Claudication of both lower extremities chronic May 19, 2024 10:27am LING (dyspnea on exertion) chronic May 19, 2024 10:27am Essential hypertension chronic [facility] 2024 10:27am Mixed hyperlipidemia chronic [facility] 2024 10:27am [facility] Work Phone: 1(716) 138-177403-06-2025 Evaluation note* Diagnosis Onset Date Resolution Status Admit Date Bilateral lower extremity edema 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 leonard May 07, 2024 1:24pm BPH (benign prostatic hyperplasia) chronic May 07, 2024 1:24pm CKD (chronic kidney disease) , stage III chronic May 07, 2024 1:24pm Essential hypertension chronic [facility] 2024 1:24pm GERD (gastroesophageal reflu x disease) chronic May 07, 2024 1:24pm Mixed hyperlipidemia chronic [facility] 2024 1:24pm 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 May 19, 2024 10:27am Claudication of both lower extremities chronic May 19, 2024 10:27am LING (dyspnea on exertion) chronic May 19, 2024 10:27am Essential hypertension chronic [facility] 2024 10:27am Mixed hyperlipidemia chronic [facility] 2024 10:27am Neck muscle strain acute August 022024 10:58am [facility] Work Phone: 1(725) 858-350503-06-2025 Evaluation note* Diagnosis Onset Date Resolution Status Admit Date Bilateral lower extremity edema 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 leonard May 07, 2024 1:24pm BPH (benign prostatic hyperplasia) chronic May 07, 2024 1:24pm CKD (chronic kidney disease) , stage III chronic May 07, 2024 1:24pm Essential hypertension chronic [facility] 2024 1:24pm GERD (gastroesophageal reflu x disease) chronic May 07, 2024 1:24pm Mixed hyperlipidemia chronic [facility] 2024 1:24pm 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 May 19, 2024 10:27am Claudication of both lower extremities chronic May 19, 2024 10:27am LING (dyspnea on exertion) chronic May 19, 2024 10:27am Essential hypertension chronic [facility] 2024 10:27am Mixed hyperlipidemia chronic [facility] 2024 10:27am Neck muscle strain acute August 022024 10:58am 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 August 26, 2024 8:53am Claudication of both lower extremities chronic August 26, 2024 8:53am LING (dyspnea on exertion) chronic August 26, 2024 8:53am Essential hypertension chronic 2024 8:53am Mixed hyperlipidemia chronic August 26, 2024 8:53am [facility] Work Phone: 1(122) 434-732401-08-2025 Evaluation note* Diagnosis Onset Date Resolution Status Admit Date 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 March 11 2:17pm Claudication of both lower extremities chronic March 11 2:17pm LING (dyspnea on exertion) chronic March 11, 2024 2:17pm Essential hypertension chronic Ja nuary 2024 2:17pm Mixed hyperlipidemia chronic Ariel jose 2024 2:17pm Bilateral lower extremity edema 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 leonard May 07, 2024 1:24pm BPH (benign prostatic hyperplasia) chronic May 07, 2024 1:24pm CKD (chronic kidney disease) , stage III chronic May 07, 2024 1:24pm Essential hypertension chronic [facility] 2024 1:24pm GERD (gastroesophageal reflu x disease) chronic May 07, 2024 1:24pm Mixed hyperlipidemia chronic [facility] 2024 1:24pm 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 Reached out to pt, call goes straight byron GUTIERREZ LMTCO to reschedule. [id number] Miscellaneous Notes* Telephone Encounter - Maia Medranojossiebarbara - 02/12/2024 1:14 PM EST Patient called and LM to cancel his appt for today (02/12/24) and to reschedule to March if possible. Reached out to pt, call goes straight byron VM. LMTCO to reschedule. documented in this [facility]11-08-2024 NoteReferral received for BPH and ED, scanned into media. Patient requested the [place] office. Appt scheduled 02/12/[address] Lim in [place].[facility]11-08-2024 Telephone encounter Note* Telephone Encounter - Maia Medranoshabana - 01/10/2024 8:50 AM EST Referral received for BPH and ED, scanned into media. Patient requested the [place] office. Appt scheduled 02/12/[address] Lim in [place]. [id number] Miscellaneous Notes* Telephone Encounter - Maiavarinder Delgadillo - 01/10/2024 8:50 AM EST Referral received for BPH and ED, scanned into media. Patient requested the [place] office. Appt scheduled 02/12/[address] Lim in [place]. documented in this [facility]04-10-2024 NoteHNO ID: [id number] Author: ADALI SULLIVAN RN Service: Nursing Author Type: Registered Nurse Type: Nursing Progress Note Filed: 06/12/2023 14:09 Note Text: Dr Moore notified of elevated BP okay to dc to home, to take home meds once arriving [facility]04-10-2024 NoteHNO ID: [id number] Author: LILIANA MCKEON AA Service: ? 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 Staffing Anesthesiologist: Audrey Rios DO CAA: Liliana Mckeon AA Performed by: KASHIF Indications and Patient Condition Indications for airway management: anesthesia Preoxygenated: yes anesthesia circuit Patient position: sniffing Method: asleep Cricoid Pressure: No Manual In-Line Stabilization: No Difficult Mask: No Airway Accessory: oral airway Final Airway Details Final airway type: endotracheal airway Final Endotracheal Airway: ETT Cuffed: yes Successful intubation technique: direct laryngoscopy Endotracheal tube insertion site: oral Blade: Shannon Blade size: #3 ETT size (mm): 7.5 Measured from: lips Measurement (cm): 23 Placement verified by: chest auscultation and capnometry Cormack-Lehane Classification: grade IIa - partial view of glottis Number of attempts at approach: 1 Ventilation between attempts: BVM Failed airway: no Unrecognized esophageal intubation: no Airway not difficult SIGNATURE: BRANDEE Ma PATIENT NAME: Olivier Mendoza DATE: June 12, 2023 TIME: 8:04 AM [id number] NoteHNO ID: [id number] Author: GODWIN CAMACHO RN Service: ? Author Type: Registered Nurse Type: Progress Notes Filed: 06/11/2023 13:39 Note Text: PATIENT MEDICATION INSTRUCTIONS Please read below carefully for your personalized instructions. Medications: If you are on blood thinner or anticoagulants including aspirin, please confirm with your surgical team on when to stop these medications. Unless instructed differently by your surgical team, stay on all of your medications until your surgery. Pre-Surgery Med Instructions Medication Instructions levothyroxine 150 mcg cap Take morning of surgery with a sip of water, no other fluids metoprolol tartrate, short acting, (LOPRESSOR) 12.5 mg tab Take morning of surgery with a sip of water, no other fluids doxazosin (CARDURA) 1 mg tablet amLODIPine (NORVASC) 5 mg tablet Take morning of surgery with a sip of water, no other fluids Tadalafil (CIALIS) 5 mg tablet Insulin Lispro, Human, (HUMALOG KWIKPEN) 100 unit/mL inpn DO NOT TAKE MORNING OF SURGERY losartan (COZAAR) 100 mg tablet DO NOT TAKE MORNING OF SURGERY insulin glargine (LANTUS SOLOSTAR) 100 unit/mL (3 mL) inpn Insulin Syringe-Needle U-100 (BD INSULIN SYRINGE ULTRA-FINE) 1/2 mL 31 x 5/16 syrg - Accucheck day of surgery. - Take full dose of insulin the day before surgery. If you have any medication changes between receiving these instructions and your surgery date, please provide this updated information with the nurse who calls you the week day prior to your surgical procedure so we can update your list and provide you with updated instructions for the morning of your procedure. PRE-PROCEDURE INSTRUCTIONS TO PREPARE FOR YOUR PROCEDURE: Your arrival time for your procedure is 0530. Do NOT eat any solid foods after MIDNIGHT the night prior to your procedure - this includes gum or mints. You can drink clear liquids* up until 0330, which is 2 hours before your arrival time. *Clear liquids = water, carbohydrate drink (sports drink that is clear or yellow in color), Ensure Pre-Surgery (given by KAREN or your ), fruit juice without pulp (apple/cranberry), clear tea, black coffee (no cream). NO CARBONATED BEVERAGES AND NO ALCOHOL. Shower the morning of the procedure, put on clean clothes, and have clean sheets for your bed to help prevent infection after your procedure. Leave all valuables such as jewelry including rings, piercings, wallets, and purses at home. Wear comfortable, loose-fitting clothing. If you wear glasses or contacts, please bring a case. SPECIAL INSTRUCTIONS: If instructed, bring your first voided urine specimen with you. If you were provided skin preparation to use prior to your procedure, complete this as directed. If you were provided Ensure Pre-Surgery drink, you need to drink this at . This should be consumed quickly (in less than 5 minutes, rather than sipped over time) If a bowel preparation has been ordered by your physician, it is very important to follow the bowel prep instructions or your procedure may need to be rescheduled. If you use crutches or a walker, bring them with you. If you have a home CPAP/BIPAP machine, bring it with you. If you were instructed to complete a fleets enema or bowel prep, complete as directed. Bring copy of Living Will/Power of Bail Agent. Do not smoke or chew. If you use tobacco, quit or at least cut down before surgery. Do not smoke or chew after midnight the day before your surgery. This effects bleeding, infection, healing, and so much more. Do not take any Diet or Herbal Supplements 2 weeks prior to your surgery date. Please notify your physician if there is any change in your physical condition such as a cold, cough, fever, sore throat, or skin irritation near the surgical site. Visitors under the age of 14 are restricted in the Surgery Center. UPON ARRIVAL: Access to [facility] is located on [address] [place] [place] parking is available for your convenience from 5am-5pm- there is a $5.00 charge for this service. Take the elevators directly inside the entrance to the 1st Floor Surgery Lobby. Sign in at the podium located to the left when you get off the elevators. A payment may be expected at the time of service. One visitor may come back to the preoperative area with you. The preoperative staff will be reviewing your medical history, please let them know if you prefer not to have a visitor with you during this time. Once you are ready for your procedure, two visitors at a time are permitted in your preprocedure room.[facility]04-09-2024 NoteHNO ID: [id number] Author: DILLON PRUETT PA-C Service: ? Author Type: Physician Electronic Lab Technician Type: Progress Notes Filed: 06/11/2023 08:21 Note Text: Summary: DOS meds PATIENT MEDICATION INSTRUCTIONS Please read below carefully for your personalized instructions. Medications: If you are on blood thinner or anticoagulants including aspirin, please confirm with your surgical team on when to stop these medications. Unless instructed differently by your surgical team, stay on all of your medications until your surgery. Pre-Surgery Med Instructions Medication Instructions levothyroxine 150 mcg cap Take morning of surgery with a sip of water, no other fluids metoprolol tartrate, short acting, (LOPRESSOR) 12.5 mg tab Take morning of surgery with a sip of water, no other fluids doxazosin (CARDURA) 1 mg tablet amLODIPine (NORVASC) 5 mg tablet Take morning of surgery with a sip of water, no other fluids Tadalafil (CIALIS) 5 mg tablet Insulin Lispro, Human, (HUMALOG KWIKPEN) 100 unit/mL inpn DO NOT TAKE MORNING OF SURGERY losartan (COZAAR) 100 mg tablet DO NOT TAKE MORNING OF SURGERY insulin glargine (LANTUS SOLOSTAR) 100 unit/mL (3 mL) inpn Insulin Syringe-Needle U-100 (BD INSULIN SYRINGE ULTRA-FINE) 1/2 mL 31 x 5/16 syrg - Accucheck day of surgery. - Take full dose of insulin the day before surgery. If you have any medication changes between receiving these instructions and your surgery date, please provide this updated information with the nurse who calls you the week day prior to your surgical procedure so we can update your list and provide you with updated instructions for the morning of your procedure.[facility] Diagnosis Onset Date Resolution Status 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 Essential hypertension chron ic Mixed hyperlipidemia [facility] Work Phone: Evaluation note* Diagnosis Onset Date Resolution Status Essential hypertension chron ic Mixed hyperlipidemia chronic Nephropathy chronic Type 1 diabetes mellitus [facility] Work Phone: Evaluation note* Diagnosis Onset Date Resolution Status Essential hypertension chron ic Mixed hyperlipidemia chronic Nephropathy chronic Type 1 diabetes mellitus chr onic 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 Essential hypertension chron ic Mixed hyperlipidemia chronic Bradycardia acute Hyperkalemia acute 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 Essential hypertension chron ic Mixed hyperlipidemia chronic [facility] Work Phone: Evaluation note* Diagnosis Onset Date Resolution Status Health care maintenance acut e Left elbow pain acute Right renal artery stenosis acute Essential hypertension chron ic Hyperkalemia chronic Nephropathy chronic Type 1 diabetes mellitus chr onic Bradycardia acute 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 Essential hypertension chron ic Hyperkalemia chronic Mixed hyperlipidemia chronic Sinusitis noneactive [facility] Work Phone: Evaluation note* Diagnosis Onset Date Resolution Status Bilateral lower extremity edema chronic BPH (benign prostatic hyperplasia) chronic Essential hypertension chron ic Hypothyroidism chronic Type 1 diabetes mellitus chr onic 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 Essential hypertension chron ic Mixed hyperlipidemia chronic [facility] Work Phone: Evaluation note* Diagnosis Onset Date Resolution Status Bilateral lower extremity edema chronic BPH (benign prostatic hyperplasia) chronic Essential hypertension chron ic Hypothyroidism chronic Type 1 diabetes mellitus chr onic 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 Essential hypertension chron ic Mixed hyperlipidemia chronic Acute sinusitis acute [facility] Work Phone: Evaluation note* Diagnosis Onset Date Resolution Status Acute sinusitis acute Fatigue acute Preoperative evaluation to r ule out surgical contraindication acute Skin cyst acute Bilateral lower extremity edema chronic BPH (benign prostatic hyperplasia) chronic Essential hypertension chron ic Sinusitis chronic Type 1 diabetes mellitus chr onic [facility] Work Phone: Evaluation note* Diagnosis Onset Date Resolution Status Fatigue acute Preoperative evaluation to r ule out surgical contraindication acute Skin cyst acute Bilateral lower extremity edema chronic BPH (benign prostatic hyperplasia) chronic Essential hypertension chron ic Sinusitis chronic Type 1 diabetes mellitus chr onic Maxillary sinusitis, chronic chronic Sinobronchitis acute [facility] Work Phone: Evaluation note* Diagnosis Onset Date Resolution Status Fatigue acute Preoperative evaluation to r ule out surgical contraindication acute Skin cyst acute Bilateral lower extremity edema chronic BPH (benign prostatic hyperplasia) chronic Essential hypertension chron ic Sinusitis chronic Type 1 diabetes mellitus chr onic Maxillary sinusitis, chronic chronic Sinobronchitis acute Abnormal heart rhythm acute Pneumonia acute [facility] Work Phone: Evaluation note* Diagnosis Onset Date Resolution Status Fatigue acute Preoperative evaluation to r ule out surgical contraindication acute Skin cyst acute Bilateral lower extremity edema chronic BPH (benign prostatic hyperplasia) chronic Essential hypertension chron ic Sinusitis chronic Type 1 diabetes mellitus chr onic Maxillary sinusitis, chronic chronic Sinobronchitis acute Abnormal heart rhythm acute Pneumonia acute GERD (gastroesophageal reflux disease) acute Preoperative evaluation to r ule out surgical contraindication acute 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 Essential hypertension chron ic Type 1 diabetes mellitus chr onic [facility] Work Phone: Hospital Discharge instructions Additional Instructions Follow-up with your cardiology team as soon as possible give their office a call for an appointment as soon as possible. Stop taking doxazosin and start taking the clonidine that was sent to your pharmacy as prescribed. Ensure you take a dose tonight. Return with worsening symptoms or other concerns.[facility] Work Phone: Progress note Author Chacorta Porter [facility] Note Date/Time November 26, 2024 10:40am [facility] [address] [place] [address]. [address] [place] [address] OFFICE VISIT Date of Service: 11/26/24 MR#: [id number] Acct: [id number] Name: OLIVIER MENDOZA Rep #: [id number] : 1960 Provider: SHAUN Porter Age/Sex: 63/M Location[place] [facility] Status: Signed HPI HPI History of Present Illness Details: This is a 63-year-old gentleman who presents here today for a cardiovascular follow-up visit. He has a history of hypertension, hyperlipidemia, carotid artery disease, obstructive sleep apnea, and diabetes. In February of 2020, he presented to the emergency room with chest pain with negative troponins. He had an abnormal EKG with changes concerning ischemia, and a stress test that was negative for ischemia. He underwent a cardiac catheterization 05/2020, which demonstrated diffuse coronary artery disease with small vessels noted in the entire coronary vasculature. He is established with Dr. Tilley. He denies chest, arm, jaw, or neck discomfort. He denies palpitations. He states bilateral lower extremity edema. He denies claudication. He states shortness of breath with activity such yard work (picking up logs) and shortnessof breath at rest such as after activity that improves with rest. He denies orthopnea or PND. He denies chronic cough. He denies significant, sudden weight gain. He denies lightheadedness, dizziness, near-syncope, or syncope. He denies blood in urine, blood in stool, or epistaxis. He denies fever with chills. He denies myalgia. He denies fatigue. His exercise level has remainedstable. 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 Accompanied by: Self Is patient in pain?: No Allergies latex Allergy (Unknown, Verified 11/26/24 09:58) Unknown Zpbidfs-QWF-MnR Reductase Inhibitor (Vuiafzv-Qdi-Irz Reductase Inhibitor) Adverse Reaction (Severe, Verified 11/26/24 09:58) muscle pain Medications ?Medication ?Instructions ?Recorded ?Confirmed ?Type insulin lispro 100 unit/mL See Rx Instructions subcut TID 12/04/19 11/26/24 History subcutaneous pen (Humalog KwikPen e10.9 (U-100) Insulin) pen needle, diabetic 31 gauge x #100 ea 01/25/2111/26 Rx 05/17 (BD Ultra-Fine Mini Pen Needle) handicap placard See Rx Instructions .Route 0 05/25/21 11/26/24 Rx .COMPLEX #1 unit compress.stocking,knee,reg,lrg #2 ea 01/09/24 11/26/24 Rx tadalafil 5 mg tablet 5 mg PO DAILY 03/11/2411/26 History blood-glucose sensor (FreeStyle 05/07/24 11/26/24 His tory Daron 2 Plus Sensor device) omeprazole 40 mg capsule,delayed 40 mg PO QDAY PRN kemal d 05/19/24 11/26/24 History release furosemide 40 mg tablet (Lasix) 40 mg PO QAM 08/26/24 11/26/24 History insulin glargine 100 unit/mL (3 25 unit subcut QAM 11/26/24 History mL) subcutaneous pen (Basaglar KwikPen U-100 Insulin) amlodipine 10 mg tablet 10 mg PO QDAY #90 tabs 10/0711/26/24 Rx fluticasone propionate 50 1 spray intranasal DAILY PRN nasal 10/19/24 11/26/24 Rx mcg/actuation nasal congestion #16 grams spray,suspension levothyroxine 150 mcg tablet 150 mcg PO DAILY #90 tabs 10/19/24 11/26/24 Rx benzonatate 200 mg capsule 200 mg PO TID PRN cough #30 caps 10/28/24 11/26/24 Rx cholecalciferol (vitamin D3) 50 2,000 unit PO DAILY #9 0 caps 11/11/24 11/26/24 Rx mcg (2,000 unit) capsule clonidine 0.1 mg/24 hr weekly 1 patch transdermal QWEE K #4 ea 11/11/24 11/26/24 Rx transdermal patch losartan 100 mg tablet 100 mg PO DAILY #90 TABLETS 11/11/24 11/26/24 Rx sildenafil 25 mg tablet (Viagra) 25 mg PO QDAY PRN sex ual activity 11/11/24 11/26/24 Rx #20 tabs evolocumab 140 mg/mL subcutaneous 140 mg subcut Q2W #2 mL 11/13/24 11/26/24 Rx pen injector (Andres Titus) carvedilol 6.25 mg tablet 6.25 mg PO BID #180 tabs 11/26/24 Rx Ejection fraction %: 65 Have you fallen in the past year?: No Nurse's Note: Requests refill on carvedilol 6.25 BID. Requests to talk about clonidine patch, Dr. Avendano recommended but insurance will not cover. 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 Diabetic foot ulcer associated with diabetes mellitus due to underlying condition Decubitus ulcer of foot, stage 2 Carotid artery stenosis Bradycardia Granuloma annulare Hypothyroidism BPH (benign prostatic hyperplasia) Abdominal pain Sleep apnea Hearing problem Back problem High calcium levels Type 1 diabetes mellitus Meniere's disease Acquired plantar keratoderma Essential hypertension Surgical History Hx of bilateral cataract extraction (~06/2022) History of left heart catheterization (05/09/20) History of removal of cyst History of eye surgery Family History Mother Diabetes Myocardial infarction Heart disease High cholesterol Grandmother Parkinson disease Father Prostate cancer Grandfather COPD (chronic obstructive pulmonary disease) Social History Smoking Status: Former smoker Smokeless tobacco user: chewing tobacco how long ago did patient quit smokin years ago second hand exposure: No alcohol intake: current alcohol intake frequency: a few times a month substance use type: does not use caffeine: Yes Type: coffee Number of servings: 3 ROS Const Const: Positive for weakness and difficulty sleeping (Occasional); Negative for fatigue, headache(s) or daytime sleepiness Eyes Eyes: Negative for blind spots, loss of peripheral vision, transient loss of vision, blurry vision or change in vision ENT ENT: Negative for headache(s), dizziness, tinnitus, Nosebleed/epistaxis or balance problems Cardio Chest Pain: No Palpitations: No Edema: Bilateral (L>R) Muscle aches with walking: Bilateral (Occasional) Resp Respiratory: Negative for SOB with activity, SOB at rest, SOB orthopnea\SOB lying down, Cough or paroxysmal nocturnal dyspnea GI GI: Negative nausea, vomiting, heartburn, vomiting blood/hematemesis, bright, red blood in stools or black,tarry stools : Positive for frequent nighttime urination/ nocturia; Negative for hematuria Musc Musc: Negative for balance problems Neuro Neuro: Positive for weakness; Negative for dizziness, lightheadedness, near syncope, syncope, headache(s) or blurry vision Randy Hematologic/Lymphatic: Positive for easy bleeding; Negative for easy bruising Endo Endo: Negative for fatigue Cardiology Exam Const Appearance: cooperative, healthy appearing, comfortable and no acute distress Nutritional Appearance: well nourished and overweight Orientation: alert, awake and oriented x3 Head Head: normal to inspection Ears: hearing grossly normal bilaterally Nose: external nose normal Face and Sinus: face symmetric Mouth: moist mucous membranes Eyes General: appearance normal, both eyes and all related structures Eyelids: eyelids normal EOM: EOM intact bilaterally Neck Neck: normal visual inspection and no JVD Carotids: normal carotid upstroke Chest Chest inspection: normal inspection of the chest, symmetric chest movement and normal respiratory effort; Negative cough Auscultation: Bilateral: Clear to Auscultation Cardio Rate: regular rate Rhythm: regular rhythm Heart sounds: S1 normal and S2 normal; Negative rub, gallop or murmur GI GI: normal to inspection Neuro General: patient alert, patient awake, patient oriented x3 and CN's II-XI intactbilaterally Skin Skin: no rashes or lesions noted Extremities Pulses: Normal: Right Posterior Tibial Pulse, Left Posterior Tibial Pulse, RightRadial Pulse and Left Radial Pulse Lower Extremity Edema: None: Bilateral Psych Psychological: normal affect Supplemental Info Supplemental Information Pharmacologic myocardial perfusion stress test 03/2024 Conclusion: Normal pharmacologic myocardial perfusion stress test. Preserved ejection fraction. Echocardiogram from 02/24/2024: Interpretation Summary Normal LV size. Left ventricular systolic function is normal. The left ventricular ejection fraction is 65 %. Mild concentric left ventricular hypertrophy. Echocardiogram 10/2019: Normal LV size. Left ventricular systolic function is normal. Mild concentric left ventricular hypertrophy. Trivial eccentric mitral valve insufficiency. Structurally normal valves. Stress Test 04/20/2020: Conclusion: Exercise myocardial perfusion stress test with no nuclear images suggestive of ischemia. EKG changes concerning for ischemia. Preserved ejection fraction. Cardiac Catheterization 05/09/2020: PROCEDURE(S) PERFORMED AG34-QCM/COR/LV CLINICAL PROFILE AND INDICATIONS Indications: Suspected CAD Heart Failure: None Stress/Imaging Date: 04/20/20ress Test with SPECT MPI: Indeterminant CAD Presentations: Symptom unlikely to be ischemic. CONCLUSIONS Diffuse coronary artery disease with small vessels noted in the entire coronary vasculature. RECOMMENDATIONS Medical therapy CORONARY ANGIOGRAPHY DOMINANCE: Right Dominant LEFT HEART ASSESSMENT Left Ventricular Ejection Fraction: by LV Gram 55 % Inferior Mid Hypokinesis - Moderate Normal Left Ventricular systolic function Peripheral vascular disease noted. Calcified ulnar noted. LEFT MAIN: Angiographically normal LEFT ANTERIOR DESCENDING ARTERY: Diffusely diseased up to 40 % CIRCUMFLEX ARTERY: Mild luminal irregularities less than 30% RAMUS: Mild luminal irregularities RIGHT CORONARY ARTERY: Mild luminal irregularities RT PDA: Proximal - Diffusely diseased up to 80 % Renal Artery Duplex From 12/25/2023: Interpretation Summary Right renal artery patent with normal velocities and no evidence of stenosis. Left renal artery patent with normal velocities and no evidence of stenosis. Right renal vein patent. Left renal vein patent. Right kidney normal in size. Left kidney normal in size. Anechoic non vascularized area noted within left kidney measuring approximately 1.89cm x 1.63cm. Lower Ext Art Exam w/o Exercise 03/2024 Interpretation Summary Right LEROY 0.82, moderate arterial insufficiency. Doppler/PVR waveforms reveal distal SFA/popliteal disease. Left LEROY 1.07, normal. Doppler/PVR waveforms of the left leg mildly diminished at rest. Labs: HDL Cholesterol, (40-) 57 mg/dL Cholesterol, (<=200) 135 mg/dL Triglycerides, (-199) 80 mg/dL Diagnostics: Electrocardiogram Echocardiogram Stress Test Stress Test Nuclear Medicine Cardiac Catheterization Chest X-Ray Abdomen Ultrasound Abdomen/Pelvis CT Carotid Duplex Extremity Arterial Study Renal Artery Duplex Past Visits: Cardiology Visit Today Assessment and Plan Assessment and Plan (1) Essential hypertension: Status: Chronic Plan: His home blood pressure readings are much better controlled compared to office. Renal duplex on 02/24/2024 showed no evidence of stenosis. Echocardiogram in February 2024 showed mild concentric LVH with an LV function of 65%. Abdomen/pelvis CT scan from October 2023 showed normal adrenal glands. He does not treat his obstructive sleep apnea and does not wish to rediscuss treatment options. 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 Will consider ongoing medication adjustment as needed. 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 transplanted heart: lum[place] heart Qualified Code(s): I25.10 -Atherosclerotic heart disease of [place] coronary artery without angina pectoris Comment: Diffuse coronary artery disease with small vessels noted in the entire coronary vasculature. [facility] 05/09/20 Plan: Patient has a history of coronary artery disease. His most recent cardiac catheterization from 05/2020 demonstrated diffuse coronary artery disease with small vessels noted in the entire coronary vasculature. Pharmacologic stress test in March 2024 was negative for ischemia. Hopefully with better blood pressure control this improves. Risk factor and lifestyle modification encouraged. (3) Mixed hyperlipidemia: Status: Chronic Plan: Lipid panel on 05/15/2024 showed total cholesterol: 135, HDL: 57, triglycerides: 80, and LDL: 62. He is unable to tolerate statin medication. He is currently on Repatha. (4) LING (dyspnea on exertion): Status: Chronic Plan: At this time, his shortness of breath appears stable. Stress test was negative for ischemia. Echocardiogram February 2024 showed mild concentric LVH and a preserved ejection fraction. We will continue to optimize medication for betterblood pressure control and see how he responds. (5) Claudication of both lower extremities: Status: Chronic Plan: He underwent lower extremity arterial evaluation that showed right LEROY 0.82 and left LEROY 1.07. We did discuss vascular evaluation due to his leg weakness previously. He was encouraged continue with exercise along with current medications. (6) Carotid artery disease: Status: Acute Plan: His last carotid duplex ultrasound was noted to be in October 2019 and showed no significant change compared to previous dated 03/15/2014. He will undergo repeatcarotid duplex ultrasound to assess for progressive disease. Depending on results, further recommendation will be made. Orders: Orders 12 Lead EKG performed by [facility] Today R00.1 - Bradycardia, unspecified Medications: Refilled carvedilol must administer with a meal/food 6.25 mg PO BID 180 tabs 3RF Plan Details Additional Comments: Thank you for allowing us to participate in the patients plan of care, if you have any questions please do not hesitate to call. Plan was reviewed with patient/family member along with red flag symptoms. Understanding was acknowledged. Questions were answered to apparent satisfaction. This note was generated using a voice recognition system and there may be incorrect words, spelling or punctuation that were not noted when reviewing the office note prior to saving. Portions of this documentation were copied and pasted from previous office visitnotes to provide a cohesive continuity of the history. The note has been reviewed, edited, and updated, as necessary. 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 transplanted heart: [place] heart Mixed hyperlipidemia E78.2 LING (dyspnea on exertion) R06.09 Claudication of both lower extremities I73.9 Carotid artery disease I77.9 Coding Level of Care Code Off vis,est,level 4 Diagnoses Essential hypertension I10 Atherosclerosis of [place] coronary artery of [place] heart without angina pectoris I25.10 [place] vs. transplanted heart: lum[place] heart Mixed hyperlipidemia E78.2 LING (dyspnea on exertion) R06.09 Claudication of both lower extremities I73.9 Carotid artery disease I77.9 Clinical Quality Measures Falls Risk Screening/Assistive Devices Have you fallen in the past year?: No Cardiac Ejection fraction %: 65 11/26/24 1315 <Electronically signed by Chacorta DUNN> Date _ Chacorta DUNN Cosigner Signature: Date (if applicable) CC: ~ [facility] Work Phone: Reason for referral (narrative)No reason for referral information availableWSelect [facility] Work Phone: Summary Purpose Family History Relationship Condition Age at Onset Recorded Date/T alecia mother Diabetes mellitus Unknown Myocardial infarction Unknown Cardiac disease Unknown High blood cholesterol Unknown grandmother Parkinson's disease Unknown father Malignant neoplasm of prostate Unknown grandfather Chronic obstructive pulmonary disease Unk nown Advance Directives Advance Directive Response Recorded Date/ Time Advance Directives No October 24, 2020 8:34am Living Will No November 07 8:38pm Power of Bail Agent No November 07, 2020 8:38pm Advance Directive Response Recorded Date/ Time Advance Directives No October 24, 2020 7:34am Living Will No November 07 7:38pm Power of Bail Agent No November 07, 2020 7:38pm Advance Directive Response Recorded Date/ Time Advance Directives No October 24, 2020 8:34am Advance Directive Response Recorded Date/ Time Do you have a Healthcare Power of Bail Agent? No August 04, 2024 2:07pm Advance Directives No October 24, 2020 8:34am Chief Complaint and Reason for Visit Chief Complaint OVERDUE FOR FU EORDER FROM [facility] Reason for Visit Atherosclerotic hear t disease of lum[place] coronary artery without angina pectoris Essential hypertension Mixed hyperlipidemia Chief Complaint FOLLOW UP Reason for Visit Essential hypertensi on Mixed hyperlipidemia Nephropathy Type 1 diabetes mellitus Chief Complaint FOLLOW UP 6 M FU 2 DRS/ 2 ORDERS 6 wk FU INT LABS Reason for Visit Essential hypertensi on Mixed hyperlipidemia Nephropathy Type 1 diabetes mellitus Atherosclerotic heart disease of [place] coronary artery without angina pectoris Essential hypertension Mixed hyperlipidemia Bradycardia Hyperkalemia Atherosclerotic heart disease of [place] coronary artery without angina pectoris Essential hypertension Mixed hyperlipidemia Chief Complaint FOLLOW UP 6 M FU 2 DRS/ 2 ORDERS 6 wk FU INT LABS HYPERTENSION EORDER-BMP/ ADD ADDT ORDER Reason for Visit Essential hypertensi on Mixed hyperlipidemia Nephropathy Type 1 diabetes mellitus Atherosclerotic heart disease of [place] coronary artery without angina pectoris Essential hypertension Mixed hyperlipidemia Bradycardia Hyperkalemia Atherosclerotic heart disease of [place] coronary artery without angina pectoris Essential hypertension Mixed hyperlipidemia Chief Complaint HYPERTENSION EORDER-BMP/ ADD ADDT ORDER 3 M FU 6 wk FU sinus congestion 3 DRS/ 3 ORDERS Reason for Visit 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 Left elbow pain Right renal artery stenosis Essential hypertension Hyperkalemia Nephropathy Type 1 diabetes mellitus Bradycardia Atherosclerotic heart disease of [place] coronary artery without angina pectoris Essential hypertension Hyperkalemia Mixed hyperlipidemia Sinusitis Chief Complaint 3 m fu 6 M FU Reason for Visit Bilateral lower extr emity edema BPH (benign prostatic hyperplasia) Essential hypertension Hypothyroidism Type 1 diabetes mellitus Atherosclerotic heart disease of [place] coronary artery without angina pectoris Essential hypertension Mixed hyperlipidemia Chief Complaint 3 m fu 6 M FU CONCERN FOR SINUS INFECTION 2 DRS/ 2 ORDERS Reason for Visit Bilateral lower extr emity edema BPH (benign prostatic hyperplasia) Essential hypertension Hypothyroidism Type 1 diabetes mellitus Atherosclerotic heart disease of [place] coronary artery without angina pectoris Essential hypertension Mixed hyperlipidemia Acute sinusitis Chief Complaint CONCERN FOR SINUS IN FECTION CONGESTED, COUGH, SORE THROAT SURGICAL CLEARANCE Reason for Visit Acute sinusitis Fatigue Preoperative evaluation to rule out surgical contraindication Skin cyst Bilateral lower extremity edema BPH (benign prostatic hyperplasia) Essential hypertension Sinusitis Type 1 diabetes mellitus Chief Complaint CONGESTED, COUGH, SO RE THROAT SURGICAL CLEARANCE BILAT EAR PAIN/SINUS PRESSURE/COUGH ACUTE CONGESTION, WHEEZING cough Reason for Visit Fatigue Preoperative evaluation to rule out surgical contraindication Skin cyst Bilateral lower extremity edema BPH (benign prostatic hyperplasia) Essential hypertension Sinusitis Type 1 diabetes mellitus Maxillary sinusitis, chronic Sinobronchitis Chief Complaint CONGESTED, COUGH, SO RE THROAT SURGICAL CLEARANCE BILAT EAR PAIN/SINUS PRESSURE/COUGH ACUTE CONGESTION, WHEEZING cough acute - 1 wk fu pneumonia Reason for Visit Fatigue Preoperative evaluation to rule out surgical contraindication Skin cyst Bilateral lower extremity edema BPH (benign prostatic hyperplasia) Essential hypertension Sinusitis Type 1 diabetes mellitus Maxillary sinusitis, chronic Sinobronchitis Abnormal heart rhythm Pneumonia Chief Complaint CONGESTED, COUGH, SO RE THROAT SURGICAL CLEARANCE BILAT EAR PAIN/SINUS PRESSURE/COUGH ACUTE CONGESTION, WHEEZING cough acute - 1 wk fu pneumonia surgery clearance Reason for Visit Fatigue Preoperative evaluation to rule out surgical contraindication Skin cyst Bilateral lower extremity edema BPH (benign prostatic hyperplasia) Essential hypertension Sinusitis Type 1 diabetes mellitus Maxillary sinusitis, chronic Sinobronchitis Abnormal heart rhythm Pneumonia GERD (gastroesophageal reflux disease) Preoperative evaluation to rule out surgical contraindication Atherosclerotic heart disease of [place] coronary artery without angina pectoris Essential hypertension Type 1 diabetes mellitus Chief Complaint Admit Date Abnormal findings on diagnostic imaging of other s February 24, 2024 6:58am EORDER- [facility] FUENTES AND TREVA Pereira 2024 8:55am 8 WK March 11, 2024 2: 17pm LING April 01, 2024 1 2:00am LING April 01, 2024 7 :31am LING April 02, 2024 7 :21am 4 M FU May 07, 2024 1:24 pm EORDER- 2 RAIN May 15, 2024 8:5 1am RESCHED FU TIBURCIO MOORE May 19, 2024 10: 27am Reason for Visit Admit Date Atherosclerotic heart diseas e of [place] coronary artery without angina pectoris March 11, 2024 2:17pm Claudication of both lower extremities J anuary 2024 2:17pm LING (dyspnea on exertion) March 11 2:17pm Essential hypertension March 11, 2024 2:17pm Mixed hyperlipidemia March 11, 2024 2 :17pm Bilateral lower extremity edema May 1:24pm BPH (benign prostatic hyperplasia) May 07, 2024 1:24pm CKD (chronic kidney disease), stage III May 07, 2024 1:24pm Essential hypertension May 07, 2024 1 :24pm GERD (gastroesophageal reflux disease) [facility] 2024 1:24pm Mixed hyperlipidemia May 07, 2024 1:2 4pm Atherosclerotic heart diseas e of [place] coronary artery without angina pectoris May 19, 2024 10:27am Claudication of both lower extremities M [facility] 2024 10:27am LING (dyspnea on exertion) May 19 10:27am Essential hypertension May 19, 2024 10:27am Mixed hyperlipidemia May 19, 2024 10 :27am Chief Complaint Admit Date Abnormal findings on diagnostic imaging of other s February 24, 2024 6:58am EORDER- [facility] FUENTES AND TREVA Pereira 2024 8:55am 8 WK FU March 11, 2024 2: 17pm LING April 01, 2024 1 2:00am LING April 01, 2024 7 :31am LING April 02, 2024 7 :21am 4 M FU May 07, 2024 1:24 pm EORDER- 2 DRS May 15, 2024 8:5 1am RESCHED FU PER May 19, 2024 10: 27am EORDER- BMP June 10, 2024 10:1 9am Chief Complaint Admit Date 4 M FU May 07, 2024 1:24 pm EORDER- 2 DRS May 15, 2024 8:5 1am RESCHED FU PER JR May 19, 2024 10: 27am EORDER- BMP June 10, 2024 10:1 9am hypertension August 04, 2024 1:38p m Reason for Visit Admit Date Bilateral lower extremity edema May 1:24pm BPH (benign prostatic hyperplasia) May 07, 2024 1:24pm CKD (chronic kidney disease), stage III May 07, 2024 1:24pm Essential hypertension May 07, 2024 1 :24pm GERD (gastroesophageal reflux disease) [facility] 2024 1:24pm Mixed hyperlipidemia May 07, 2024 1:2 4pm Atherosclerotic heart diseas e of [place] coronary artery without angina pectoris May 19, 2024 10:27am Claudication of both lower extremities M [facility] 2024 10:27am LING (dyspnea on exertion) May 19 10:27am Essential hypertension May 19, 2024 10:27am Mixed hyperlipidemia May 19, 2024 10 :27am Chief Complaint Admit Date 4 M FU May 07, 2024 1:24 pm EORDER- 2 DRS May 15, 2024 8:5 1am RESCHED FU PER JR May 19, 2024 10: 27am EORDER- BMP June 10, 2024 10:1 9am hypertension August 04, 2024 1:38p m PINCHED NERVE IN BACK August 20, 2024 10 :58am Reason for Visit Admit Date Bilateral lower extremity edema May 1:24pm BPH (benign prostatic hyperplasia) May 07, 2024 1:24pm CKD (chronic kidney disease), stage III May 07, 2024 1:24pm Essential hypertension May 07, 2024 1 :24pm GERD (gastroesophageal reflux disease) [facility] 2024 1:24pm Mixed hyperlipidemia May 07, 2024 1:2 4pm Atherosclerotic heart diseas e of [place] coronary artery without angina pectoris May 19, 2024 10:27am Claudication of both lower extremities [facility] 2024 10:27am LING (dyspnea on exertion) May 19 10:27am Essential hypertension May 19, 2024 10:27am Mixed hyperlipidemia May 19, 2024 10 :27am Neck muscle strain August 20, 2024 10:5 8am Chief Complaint Admit Date 4 M FU May 07, 2024 1:24 pm EORDER- 2 DRS May 15, 2024 8:5 1am RESCHED FU PER JR May 19, 2024 10: 27am EORDER- BMP June 10, 2024 10:1 9am hypertension August 04, 2024 1:38p m PINCHED NERVE IN BACK August 20, 2024 10 :58am S/P ER, severe hypertension L.L. August 262024 8:53am Reason for Visit Admit Date Bilateral lower extremity edema May 1:24pm BPH (benign prostatic hyperplasia) May 07, 2024 1:24pm CKD (chronic kidney disease), stage III May 07, 2024 1:24pm Essential hypertension May 07, 2024 1 :24pm GERD (gastroesophageal reflux disease) [facility] 2024 1:24pm Mixed hyperlipidemia May 07, 2024 1:2 4pm Atherosclerotic heart diseas e of [place] coronary artery without angina pectoris May 19, 2024 10:27am Claudication of both lower extremities [facility] 2024 10:27am LING (dyspnea on exertion) May 19 10:27am Essential hypertension May 19, 2024 10:27am Mixed hyperlipidemia May 19, 2024 10 :27am Neck muscle strain August 20, 2024 10:5 8am Atherosclerotic heart diseas e of [place] coronary artery without angina pectoris August 26, 2024 8:53am Claudication of both lower extremities J [facility] 2024 8:53am LING (dyspnea on exertion) August 26 8:53am Essential hypertension August 26, 2024 8 :53am Mixed hyperlipidemia August 26, 2024 8:5 3am Chief Complaint Admit Date hypertension August 04, 2024 1:38p m PINCHED NERVE IN BACK August 20, 2024 10 :58am S/P ER, severe hypertension L.L. August 262024 8:53am Voicebox concerns October 28, 2024 9: 28am Reason for Visit Admit Date Neck muscle strain August 20, 2024 10:5 8am Carotid artery disease August 26, 2024 8 :53am Atherosclerotic heart diseas e of [place] coronary artery without angina pectoris August 26, 2024 8:53am Claudication of both lower extremities J [facility] 2024 8:53am LING (dyspnea on exertion) August 26 8:53am Essential hypertension August 26, 2024 8 :53am Mixed hyperlipidemia August 26, 2024 8:5 3am Chief Complaint Admit Date hypertension August 04, 2024 1:38p m PINCHED NERVE IN BACK August 20, 2024 10 :58am S/P ER, severe hypertension L.L. August 262024 8:53am Voicebox concerns October 28, 2024 9: 28am 6 M FU November 11, 2024 9:58am Reason for Visit Admit Date Neck muscle strain August 20, 2024 10:5 8am Carotid artery disease August 26, 2024 8 :53am Atherosclerotic heart diseas e of [place] coronary artery without angina pectoris August 26, 2024 8:53am Claudication of both lower extremities J une 2024 8:53am LING (dyspnea on exertion) August 26 8:53am Essential hypertension August 26, 2024 8 :53am Mixed hyperlipidemia August 26, 2024 8:5 3am Acute nasopharyngitis October 28, 2024 9:28am Chief Complaint Admit Date hypertension August 04, 2024 1:38p m PINCHED NERVE IN BACK August 20, 2024 10 :58am S/P ER, severe hypertension L.L. August 262024 8:53am Voicebox concerns October 28, 2024 9: 28am 6 M FU November 11, 2024 9:58am 3 M FU November 26, 2024 9:29am Occlusion and stenosis of left carotid a rtery December 01, 2024 8:39am Reason for Visit Admit Date Neck muscle strain August 20, 2024 10:5 8am Carotid artery disease August 26, 2024 8 :53am Atherosclerotic heart diseas e of [place] coronary artery without angina pectoris August 26, 2024 8:53am Claudication of both lower extremities J [facility] 2024 8:53am ILNG (dyspnea on exertion) August 26 8:53am Essential hypertension August 26, 2024 8 :53am Mixed hyperlipidemia August 26, 2024 8:5 3am Acute nasopharyngitis October 28, 2024 9:28am Abdominal pain November 11, 2024 9:58am Chronic sinusitis November 11, 2024 9:58am Erectile dysfunction November 11 9:58am Essential hypertension November 11 9:58am Type 1 diabetes mellitus November 11, 2024 9:58am Carotid artery disease November 26 025 9:29am Atherosclerotic heart diseas e of [place] coronary artery without angina pectoris November 26, 2024 9:29am Claudication of both lower extremities S eptember 2024 9:29am LING (dyspnea on exertion) November 9:29am Essential hypertension November 26 025 9:29am Mixed hyperlipidemia November 26 9:29am Chief Complaint Admit Date PINCHED NERVE IN BACK August 20, 2024 10 :58am S/P ER, severe hypertension L.L. August 262024 8:53am Voicebox concerns October 28, 2024 9: 28am 6 M FU November 11, 2024 9:58am 3 M FU November 26, 2024 9:29am Occlusion and stenosis of left carotid a rtery December 01, 2024 8:39am Chief Complaint Admit Date Voicebox concerns October 28, 2024 9: 28am 6 M FU November 11, 2024 9:58am 3 M FU November 26, 2024 9:29am Occlusion and stenosis of left carotid a rtery December 01, 2024 8:39am Voicebox issues December 17, 2024 2 :30pm Reason for Visit Admit Date Acute nasopharyngitis October 28, 2024 9:28am Abdominal pain November 11, 2024 9:58am Chronic sinusitis November 11, 2024 9:58am Erectile dysfunction November 11 9:58am Essential hypertension November 11, 2 025 9:58am Type 1 diabetes mellitus November 11, 2024 9:58am Carotid artery disease November 26 2 025 9:29am Atherosclerotic heart diseas e of [place] coronary artery without angina pectoris November 26, 2024 9:29am Claudication of both lower extremities S eptember 2024 9:29am LING (dyspnea on exertion) November 9:29am Essential hypertension November 26, 2 025 9:29am Mixed hyperlipidemia November 26 9:29am Acute rhinosinusitis December 17, 2024 2:30pm Additional Source Comments (unrecognized sect ion and content) No Status Records FoundNo Status Records FoundNo Status Records FoundNo Status Records FoundNo Status Records Found INFORMATION SOURCE (unrecogn ized section and content) DATE CREATED AUTHOR 11/21/2020 [facility] DATE CREATED AUTHOR AUTHOR'S ORGANIZ ATION 04/16/2023 [facility] DATE CREATED AUTHOR AUTHOR'S ORGANIZ ATION 07/14/2023 [facility] DATE CREATED AUTHOR AUTHOR'S ORGANIZ ATION 02/16/2024 [facility] DATE CREATED AUTHOR AUTHOR'S ORGANIZ ATION 12/17/2024 [facility] Goals (unrecognized section and content) Goals may be documented in a n alternate sectionGoals may be documented in an alternate sectionGoals may be documented in an alternate sectionGoals may be documented in an alternate sectionGoals may be documented in an alternate sectionGoals may be documented in an alternate sectionGoals may be documented in an alternate sectionGoals may be documented in an alternate sectionGoals may be documented in an alternate sectionGoals may be documented in an alternate sectionGoals may be documented in an alternate sectionGoals may be documented in an alternate sectionGoals may be documented in an alternate sectionGoals may be documented in an alternate sectionGoals may be documented in an alternate sectionGoals may be documented in an alternate sectionGoals may be documented in an alternate sectionGoals may be documented in an alternate sectionGoals may be documented in an alternate sectionGoals may be documented in an alternate sectionGoals may be documented in an alternate sectionGoals may be documented in an alternate section Care Teams (unrecognized sec tion and content) Team Status: Active Member Role Status Dates Dr. Sherice Avendano MD Family Provider Active Dr. Sherice Avendano MD Primary Care Provider Active Team Status: Inactive Member Role Status Dates Dr. Sherice Avendano MD Primary Care P rovider, Attending Provider, Referring Provider Active Team Status: Inactive Member Role Status Dates Dr. Sherice Avendano MD Primary Care Provider, Refer ring Provider Active Chacorta Porter CAN TENDER, CAN TENDER-C Attending Provider Active Team Status: Active Member Role Status Dates Dr. Sherice Avendano MD Primary Care Provider Active Dr. Nicholas Teixeira MD Attending Provider Active Gennaro Fuentes CAN TENDER, CAN TENDER-C Referring Provider Active Team Status: Inactive Member Role Status Dates Dr. Sherice Avendano MD Primary Care Provider, Refer ring Provider Active ANIL Alba Attending Provider Active Team Status: Inactive Member Role Status Dates Dr. Sherice Avendano MD Primary Care Provider Active Gennaro Fuentes CAN TENDER, CAN TENDER-C Attending Provider, Referring P rovider Active Team Status: Inactive Member Role Status Dates Dr. Sherice Avendano MD Primary Care Provider Active Gennaro Fuentes CAN TENDER, CAN TENDER-C Attending Provider, Referring P rovider Active Dr. Edna Tilley MD Other Provider Active Team Status: Inactive Member Role Status Dates Dr. Sherice Avendano MD Primary Care Provider Active Dr. Enrrique Vaughn DO Attending Provider, Referring Provider Active Dr. Eduar Hale MD Other Provider Active Dr. Edna Tilley MD Other Provider Active Team Status: Inactive Member Role Status Dates Dr. Sherice Avendano MD Primary Care Provider Active Dr. Enrrique Vaughn DO Attending Provider, Referring Provider Active Team Status: Inactive Member Role Status Dates Dr. Sherice Avendano MD Primary Care Provider, Refer ring Provider Active Graeme Perdomo PA, PA Attending Provider Active Team Status: Inactive Member Role Status Dates Dr. Sherice Avendano MD Primary Care Provider Active Dr. Edna Tilley MD Attending Provider, Referri ng Provider Active Dr. Enrrique Vaughn DO Other Provider Active Team Status: Inactive Member Role Status Dates Dr. Sherice Avendano MD Primary Care Provider, Refer ring Provider Active Moi Wick PA, PA Attending Provider Active Team Status: Inactive Member Role Status Dates Dr. Sherice Avendano MD Primary Care Provider, Refer ring Provider Active Tamra Menchaca NP-C Attending Provider Active Team Status: Inactive Member Role Status Dates Dr. Sherice Avendano MD Primary Care Provider, Refer ring Provider Active Yan MA, PA Attending Provider Active Team Status: Inactive Member Role Status Dates Dr. Sherice Avendano MD Primary Care Provider Active Yan MA, PA Attending Provider, Referring Prov ider Active Facility Maintenance Supervisor Relationship Specialty Start Date End Date Jhonny Lim MD [address] [place] [address] Surgeon Urology 01/10/24 Facility Maintenance Supervisor Relationship Specialty Start Date End Date Jhonny Lim MD [address] [place] [address] Surgeon Urology 01/10/24 Team Status: Inactive Member Role Status Dates Gennaro Fuentes NP, CAN TENDER-C Attending Provider Active Start: February 24, 2024 End: February 24, 2024 Gennaro Fuentes CAN TENDER, CAN TENDER-C Referring Provider Active Start: February 24, 2024 End: February 24, 2024 Dr. Sherice Avendano MD Primary Care Provider Active Start: February 24, 2024 End: February 24, 2024 Team Status: Active Member Role Status Dates Dr. Sherice Avendano MD Primary Care Provider Active Start: February 24, 2024 Dr. Sherice Avendano MD Referring Provider Active Start: February 24, 2024 Dr. Nicholas Teixeira MD Attending Provider Active S tart: February 24, 2024 Team Status: Active Member Role Status Dates Dr. Sherice Avendano MD Primary Care Provider Active Start: February 24, 2024 Dr. Pop Castellanos MD Attending Provider Active S tart: February 24, 2024 Team Status: Inactive Member Role Status Dates Dr. Sherice Avendano MD Primary Care Provider Active Start: March 10, 2024 End: March 10, 2024 Dr. Edna Tilley MD Attending Provider Active Start: March 10, 2024 End: March 10, 2024 Dr. Edna Tilley MD Referring Provider Active Start: March 10, 2024 End: March 10, 2024 Chacorta Porter CAN TENDER, CAN TENDER-C Other Provider Active Start : March 10, 2024 End: March 10, 2024 Gennaro Fuentes CAN TENDER, CAN TENDER-C Other Provider Active Sta rt: March 10, 2024 End: March 10, 2024 Team Status: Inactive Member Role Status Dates Dr. Sherice Avendano MD Primary Care Provider Active Start: March 11, 2024 End: March 11, 2024 Dr. Sherice Avendano MD Referring Provider Active Start: March 11, 2024 End: March 11, 2024 Marlena MA, PA Attending Provider Active Start: March 11, 2024 End: March 11, 2024 Team Status: Active Member Role Status Dates Dr. Sherice Avendano MD Primary Care Provider Active Start: April 01, 2024 Dr. Pop Castellanos MD Attending Provider Active S tart: April 01, 2024 Marlena Angel PA, PA Referring Provider Active Start: April 01, 2024 Team Status: Inactive Member Role Status Dates Dr. Sherice Avendano MD Primary Care Provider Active Start: April 01, 2024 End: April 01, 2024 Marlena MA PA Attending Provider Active Start: April 01, 2024 End: April 01, 2024 Marlena MA, PA Referring Provider Active Start: April 01, 2024 End: April 01, 2024 Team Status: Active Member Role Status Dates Dr. Sherice Avendano MD Primary Care Provider Active Start: April 01, 2024 Dr. Nicholas Teixeira MD Attending Provider Active S tart: April 01, 2024 Marlena MA, PA Referring Provider Active Start: April 01, 2024 Team Status: Active Member Role Status Dates Dr. Sherice Avendano MD Primary Care Provider Active Start: April 02, 2024 Marlena MA, PA Referring Provider Active Start: April 02, 2024 Marlena Angel PA, PA Other Provider Active Start: April 02, 2024 Dr. Pop Castellanos MD Attending Provider Active S tart: April 02, 2024 Team Status: Inactive Member Role Status Dates Dr. Sherice Avendano MD Primary Care Provider Active Start: May 07, 2024 End: May 07, 2024 Dr. Sherice Avendano MD Attending Provider Active Start: May 07, 2024 End: May 07, 2024 Dr. Sherice Avendano MD Referring Provider Active Start: May 07, 2024 End: May 07, 2024 Team Status: Inactive Member Role Status Dates Dr. Sherice Avendano MD Primary Care Provider Active Start: May 15, 2024 End: May 15, 2024 Dr. Sherice Avendano MD Attending Provider Active Start: May 15, 2024 End: May 15, 2024 Dr. Sherice Avendano MD Referring Provider Active Start: May 15, 2024 End: May 15, 2024 SHAUN RODRÍGUEZ Other Provider Active Star t: May 15, 2024 End: May 15, 2024 Team Status: Inactive Member Role Status Dates Dr. Sherice Avendano MD Primary Care Provider Active Start: May 19, 2024 End: May 19, 2024 Dr. Sherice Avendano MD Referring Provider Active Start: May 19, 2024 End: May 19, 2024 Chacorta Porter CAN TENDER, CAN TENDER-C Attending Provider Active S tart: May 19, 2024 End: May 19, 2024 Team Status: Inactive Member Role Status Dates Dr. Sherice Avendano MD Primary Care Provider Active Start: June 10, 2024 End: June 10, 2024 Chacorta Porter CAN TENDER, CAN TENDER-C Attending Provider Active S tart: June 10, 2024 End: June 10, 2024 Chacorta Porter CAN TENDER, CAN TENDER-C Referring Provider Active S tart: June 10, 2024 End: June 10, 2024 Team Status: Active Member Role Status Dates Dr. Sherice Avendano MD Primary Care Provider Active Team Status: Inactive Member Role Status Dates Dr. Sherice Avendano MD Primary Care Provider Active Start: August 04, 2024 End: August 04, 2024 Dr. Denzel Carlin DO Emergency Provider Active Start: August 04, 2024 End: August 04, 2024 Team Status: Inactive Member Role Status Dates Dr. Sherice Avendano MD Primary Care Provider Active Start: August 04, 2024 End: August 04, 2024 Dr. Denzel Carlin DO Attending Provider Active Start: August 04, 2024 End: August 04, 2024 Dr. Denzel Carlin DO Emergency Provider Active Start: August 04, 2024 End: August 04, 2024 Team Status: Inactive Member Role Status Dates Dr. Sherice Avendano MD Primary Care Provider Active Start: August 20, 2024 End: August 20, 2024 Dr. Sherice Avendano MD Referring Provider Active Start: August 20, 2024 End: August 20, 2024 SHAUN Finch Attending Provider Active Start: August 20, 2024 End: August 20, 2024 Team Status: Inactive Member Role Status Dates Dr. Sherice Avendano MD Primary Care Provider Active Start: August 26, 2024 End: August 26, 2024 Dr. Sherice Avendano MD Referring Provider Active Start: August 26, 2024 End: August 26, 2024 Chacorta Porter CAN TENDER, CAN TENDER-C Attending Provider Active S tart: August 26, 2024 End: August 26, 2024 Team Status: Active Member Role/Relationship Status Dates Dr. Sherice Avendano MD Primary Care Provider Active Team Status: Inactive Member Role/Relationship Status Dates Dr. Sherice Avendano MD Primary Care Provider Active Start: August 04, 2024 End: August 04, 2024 Dr. Denzel Carlin DO Attending Provider Active Start: August 04, 2024 End: August 04, 2024 Dr. Denzel Carlin DO Emergency Provider Active Start: August 04, 2024 End: August 04, 2024 Team Status: Inactive Member Role/Relationship Status Dates Dr. Sherice Avendano MD Primary Care Provider Active Start: August 20, 2024 End: August 20, 2024 Dr. Sherice Avendano MD Referring Provider Active Start: August 20, 2024 End: August 20, 2024 THERESA FinchC Attending Provider Active Start: August 20, 2024 End: August 20, 2024 Team Status: Inactive Member Role/Relationship Status Dates Dr. Sherice Avendano MD Primary Care Provider Active Start: August 26, 2024 End: August 26, 2024 Dr. Sherice Avendano MD Referring Provider Active Start: August 26, 2024 End: August 26, 2024 Chacorta Porter CAN TENDER, CAN TENDER-C Attending Provider Active S tart: August 26, 2024 End: August 26, 2024 Team Status: Inactive Member Role/Relationship Status Dates Dr. Sherice Avendano MD Primary Care Provider Active Start: October 28, 2024 End: October 28, 2024 Dr. Sherice Avendano MD Referring Provider Active Start: October 28, 2024 End: October 28, 2024 ANIL Clay Attending Provider Active St art: October 28, 2024 End: October 28, 2024 Team Status: Inactive Member Role/Relationship Status Dates Dr. Sherice Avendano MD Primary Care Provider Active Start: November 11, 2024 End: November 11, 2024 Dr. Sherice Avendano MD Attending Provider Active Start: November 11, 2024 End: November 11, 2024 Dr. Sherice Avendano MD Referring Provider Active Start: November 11, 2024 End: November 11, 2024 Team Status: Active Member Role/Relationship Status Dates Dr. Sherice Avendano MD Primary care physician Activ e Team Status: Inactive Member Role/Relationship Status Dates Dr. Sherice Avendano MD Primary care physician Activ e Start: August 04, 2024 End: August 04, 2024 Dr. Denzel Carlin DO Attending physician Active Start: August 04, 2024 End: August 04, 2024 Dr. Denzel Carlin DO Emergency Department Physician A ctive Start: August 04, 2024 End: August 04, 2024 Team Status: Inactive Member Role/Relationship Status Dates Dr. Sherice Avendano MD Primary care physician Activ e Start: August 20, 2024 End: August 20, 2024 Dr. Sherice Avendano MD Referring Provider Active Start: August 20, 2024 End: August 20, 2024 Riya Lutz NP-C Attending physician Active Start: August 20, 2024 End: August 20, 2024 Team Status: Inactive Member Role/Relationship Status Dates Dr. Sherice Avendano MD Primary care physician Activ e Start: August 26, 2024 End: August 26, 2024 Dr. Sherice Avendano MD Referring Provider Active Start: August 26, 2024 End: August 26, 2024 Chacorta Porter NP CAN TENDER-C Attending physician Active Start: August 26, 2024 End: August 26, 2024 Team Status: Inactive Member Role/Relationship Status Dates Dr. Sherice Avendano MD Primary care physician Activ e Start: October 28, 2024 End: October 28, 2024 Dr. Sherice Avendano MD Referring Provider Active Start: October 28, 2024 End: October 28, 2024 Yan MA PA Attending physician Active S tart: October 28, 2024 End: October 28, 2024 Team Status: Inactive Member Role/Relationship Status Dates Dr. Sherice Avendano MD Primary care physician Activ e Start: November 11, 2024 End: November 11, 2024 Dr. Sherice Avendano MD Attending physician Active Start: November 11, 2024 End: November 11, 2024 Dr. Sherice Avendano MD Referring Provider Active Start: November 11, 2024 End: November 11, 2024 Team Status: Inactive Member Role/Relationship Status Dates Dr. Sherice Avendano MD Primary care physician Activ e Start: November 26, 2024 End: November 26, 2024 Dr. Sherice Avendano MD Referring Provider Active Start: November 26, 2024 End: November 26, 2024 Chacorta Porter CAN TENDER, CAN TENDER-C Attending physician Active Start: November 26, 2024 End: November 26, 2024 Team Status: Active Member Role/Relationship Status Dates Dr. Sherice Avendano MD Primary care physician Activ e Start: December 01, 2024 Chacorta Porter CAN TENDER, CAN TENDER-C Attending physician Active Start: December 01, 2024 Chacorta Porter CAN TENDER, CAN TENDER-C Referring Provider Active S tart: December 01, 2024 Team Status: Inactive Member Role/Relationship Status Dates Dr. Sherice Avendano MD Primary care physician Activ e Start: August 20, 2024 End: August 20, 2024 Dr. Sherice Avendano MD Referring Provider Active Start: August 20, 2024 End: August 20, 2024 Riya Lutz NP-C Attending physician Active Start: August 20, 2024 End: August 20, 2024 Team Status: Inactive Member Role/Relationship Status Dates Dr. Sherice Avendano MD Primary care physician Activ e Start: August 26, 2024 End: August 26, 2024 Dr. Sherice Avendano MD Referring Provider Active Start: August 26, 2024 End: August 26, 2024 Chacorta Porter CAN TENDER, CAN TENDER-C Attending physician Active Start: August 26, 2024 End: August 26, 2024 Team Status: Inactive Member Role/Relationship Status Dates Dr. Sherice Avendano MD Primary care physician Activ e Start: October 28, 2024 End: October 28, 2024 Dr. Sherice Avendano MD Referring Provider Active Start: October 28, 2024 End: October 28, 2024 Yan MA PA Attending physician Active S tart: October 28, 2024 End: October 28, 2024 Team Status: Inactive Member Role/Relationship Status Dates Dr. Sherice Avendano MD Primary care physician Activ e Start: November 11, 2024 End: November 11, 2024 Dr. Sherice Avendano MD Attending physician Active Start: November 11, 2024 End: November 11, 2024 Dr. Sherice Avendano MD Referring Provider Active Start: November 11, 2024 End: November 11, 2024 Team Status: Inactive Member Role/Relationship Status Dates Dr. Sherice Avendano MD Primary care physician Activ e Start: November 26, 2024 End: November 26, 2024 Dr. Sherice Avendano MD Referring Provider Active Start: November 26, 2024 End: November 26, 2024 Chacorta Porter CAN TENDER, CAN TENDER-C Attending physician Active Start: November 26, 2024 End: November 26, 2024 Team Status: Inactive Member Role/Relationship Status Dates Dr. Sherice Avendano MD Primary care physician Activ e Start: December 01, 2024 End: December 01, 2024 Chacorta Porter CAN TENDER, CAN TENDER-C Attending physician Active Start: December 01, 2024 End: December 01, 2024 Chacorta Porter CAN TENDER, CAN TENDER-C Referring Provider Active S tart: December 01, 2024 End: December 01, 2024 Team Status: Active Member Role/Relationship Status Dates Dr. Sherice Avendano MD Primary care physician Activ e Start: December 01, 2024 Dr. Nicholas Teixeira MD Attending physician Active Start: December 01, 2024 Team Status: Inactive Member Role/Relationship Status Dates Dr. Sherice Avendano MD Primary care physician Activ e Start: October 28, 2024 End: October 28, 2024 Dr. Sherice Avendano MD Referring Provider Active Start: October 28, 2024 End: October 28, 2024 ANIL Clay Attending physician Active S tart: October 28, 2024 End: October 28, 2024 Team Status: Inactive Member Role/Relationship Status Dates Dr. Sherice Avendano MD Primary care physician Activ e Start: November 11, 2024 End: November 11, 2024 Dr. Sherice Avendano MD Attending physician Active Start: November 11, 2024 End: November 11, 2024 Dr. Sherice Avendano MD Referring Provider Active Start: November 11, 2024 End: November 11, 2024 Team Status: Inactive Member Role/Relationship Status Dates Dr. Sherice Avendano MD Primary care physician Activ e Start: November 26, 2024 End: November 26, 2024 Dr. Sherice Avendano MD Referring Provider Active Start: November 26, 2024 End: November 26, 2024 Chacorta Porter CAN TENDER, CAN TENDER-C Attending physician Active Start: November 26, 2024 End: November 26, 2024 Team Status: Inactive Member Role/Relationship Status Dates Dr. Sherice Avendano MD Primary care physician Activ e Start: December 01, 2024 End: December 01, 2024 Chacorta Porter CAN TENDER, CAN TENDER-C Attending physician Active Start: December 01, 2024 End: December 01, 2024 Chacorta Porter CAN TENDER, CAN TENDER-C Referring Provider Active S tart: December 01, 2024 End: December 01, 2024 Team Status: Active Member Role/Relationship Status Dates Dr. Sherice Avendano MD Primary care physician Activ e Start: December 01, 2024 Dr. Nicholas Teixeira MD Attending physician Active Start: December 01, 2024 Chacorta Porter CAN TENDER, CAN TENDER-C Referring Provider Active S tart: December 01, 2024 Team Status: Inactive Member Role/Relationship Status Dates Dr. Sherice Avendano MD Primary care physician Activ e Start: December 17, 2024 End: December 17, 2024 Dr. Sherice Avendano MD Referring Provider Active Start: December 17, 2024 End: December 17, 2024 ANIL Clay Attending physician Active S tart: December 17, 2024 End: December 17, 2024 FOR RECORDS PERTAINING TO PATIENTS WHO ARE [...] BE BASED ON THE PRIMARY CLINICAL RECORDS. [facility] [employer] [facility]. provides no warranty or guarantee of the accuracy or completeness of information in this document.
--- NOTE | 2025-02-02 19:55 | RAD_ITS ---
PROCEDURE: CHEST PA AND LATERAL 02/02/2025 REASON FOR EXAM: COUGH DYSPNEA TECHNIQUE: Procedure Code: RADCXR Modality: DX Procedure: CHEST PA AND LATERAL COMPARISON: 08/04/2024 FINDINGS: Bilateral lower lobe opacities likely chronic interstitial lung disease. Atypical pneumonia not excluded.. No pleural effusion or pneumothorax. Cardiac silhouette is within normal limits. No acute fractures. RAD/Chest PA and Lateral IMPRESSION: Bilateral lower lobe opacities likely chronic interstitial lung disease. Atypic al pneumonia not excluded.. Reading Location: [id number]
--- NOTE | 2025-02-02 20:37 | CT_ITS ---
PROCEDURE: CTA CHEST W/WO CONTRAST 02/02/2025 REASON FOR EXAM: HYPOXIA PNEUMONIA PULIMONARY EMBOLISM TECHNIQUE: Procedure Code: CTCTACHWW Modality: CT Procedure: CTA CHEST W/WO CONTRAST Multiplanar Sagittal and Coronal images were obtained. 3D post processing was performed. CONTRAST: Isovue 370 VOLUME: 100 mL One or more dose reduction techniques were used (e.g., Automated exposure control, adjustment of the mA and/or kV according to patient size, use of iterative reconstruction technique). RADIATION DOSE SUMMARY: DLP: 259.62 mGycm COMPARISON: CT chest 02/24/2024. FINDINGS: PULMONARY VESSELS: No filling defects suspicious for pulmonary arterial emboli identified. Normal caliber main pulmonary trunk. No evidence of right heart strain. LUNGS/PLEURA: Small bilateral pleural effusions with adjacent passive atelectasis. Interstitial edema and bilateral patchy ground-glass airspace opacities, likely reflecting alveolar edema, or possibly infectious/inflammatory. No pneumothorax. Patent central airways. MEDIASTINUM: No suspicious mediastinal lymph node enlargement. HEART: Borderline enlarged. No pericardial effusion. Mild coronary artery calcifications. THORACIC AORTA: Normal course and caliber. Mild atherosclerotic disease. UPPER ABDOMEN: No significant abnormality, as visualized. BONES: Minimal degenerative changes of the thoracic spine. CT/CTA Chest W/WO Contrast IMPRESSION: No pulmonary arterial emboli. Borderline cardiomegaly. Fluid overload with small bilateral pleural effusions, interstitial and alveolar edema. Infectious/inflammatory component of ground-glass airspace opacities may be pre sent. Reading Location: [id number]
--- NOTE | 2025-02-02 20:39 | EKG12_ITS ---
Test Reason : DYSRHYTHMIA Blood Pressure : */* mmHG Vent. Rate : 86 BPM Atrial Rate : 86 BPM P-R Int : 182 ms QRS Dur : 82 ms QT Int : 362 ms P-R-T Axes : 72 45 38 degrees QTcB Int : 433 ms Sinus rhythm with frequent Premature ventricular complexes Nonspecific ST abnormality Abnormal ECG Confirmed by Pablito Redmond ([id number]), index editor RIAN SOLORIO ([id number]) on 02/03/2025 8:49:03 AM Referred By: Confirmed By: Pablito Redmond
--- NOTE | 2025-02-02 20:51 | EX.ED.DYSGE1 ---
HPI History of Present Illness Chief Complaint: General Illness Informant: patient and spouse/S.O. Narrative Narrative: 64-year-old male presenting to the emergency room with chief complaint of shortness of breath. Patient states that he has been having sinusitis issues. Today he was climbing the stairs and found himself to be pretty winded. Notes a slight cough. He has at times been chilled. He is concerned that he may have pneumonia. He does not have any known lung conditions. He has not been experiencing any chest pain. He states he is normally very active individual. Nursing notes that he was about 84% on room air with a good waveform when he got back to the room. He states he did not particularly feel short of breath or confused. [facility] Medical History Chronic sinusitis Erectile dysfunction Claudication of both lower extremities Hilar density Abnormal chest xray Preop cardiovascular exam CKD (chronic kidney disease), stage III GERD (gastroesophageal reflux disease) Chest congestion Preoperative evaluation to rule out surgical contraindication Sinusitis Skin cyst Fatigue Left elbow pain Health care maintenance Proteinuria Nephropathy Bilateral lower extremity edema COVID-19 vaccine series completed Atherosclerotic heart disease of [place] coronary artery without angina pectoris Mixed hyperlipidemia 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 Diabetic foot ulcer associated with diabetes mellitus due to underlying condition Decubitus ulcer of foot, stage 2 Carotid artery stenosis Bradycardia Granuloma annulare Hypothyroidism BPH (benign prostatic hyperplasia) Abdominal pain Sleep apnea Hearing problem Back problem High calcium levels Type 1 diabetes mellitus Meniere's disease Acquired plantar keratoderma Essential hypertension Home Medications ?Medication ?Instructions ?Recorded ?Last Taken ?Type insulin lispro 100 unit/mL See Rx Instructions subcut TID 12/04/19 08/04/24 History subcutaneous pen (Humalog KwikPen e10.9 (U-100) Insulin) pen needle, diabetic 31 gauge x #100 ea 01/25/21 Unknown Rx 3/16 (BD Ultra-Fine Mini Pen Needle) handicap placard See Rx Instructions .Route 05/25/21 Unknown Rx .COMPLEX #1 unit compress.stocking,knee,reg,lrg #2 ea 01/09/24 Unknown Rx tadalafil 5 mg tablet 5 mg PO DAILY 03/11/24 08/03/24 History blood-glucose sensor (FreeStyle 05/07/24 Unknown History Daron 2 Plus Sensor device) omeprazole 40 mg capsule,delayed 40 mg PO QDAY PRN gerd 05/19/24 Unknown History release furosemide 40 mg tablet (Lasix) 40 mg PO QAM 08/26/24 Unknown History insulin glargine 100 unit/mL (3 25 unit subcut QAM 08/26/24 Unknown History mL) subcutaneous pen (Basaglar KwikPen U-100 Insulin) amlodipine 10 mg tablet 10 mg PO QDAY #90 tabs 10/07/24 Unknown Rx fluticasone propionate 50 1 spray intranasal DAILY PRN nasal 10/19/24 Unknown Rx mcg/actuation nasal congestion #16 grams spray,suspension levothyroxine 150 mcg tablet 150 mcg PO DAILY #90 tabs 10/19/24 Unknown Rx cholecalciferol (vitamin D3) 50 2,000 unit PO DAILY #90 caps 11/11/24 Unknown Rx mcg (2,000 unit) capsule clonidine 0.1 mg/24 hr weekly 1 patch transdermal QWEEK #4 ea 11/11/24 Unknown Rx transdermal patch losartan 100 mg tablet 100 mg PO DAILY #90 TABLETS 11/11/24 Unknown Rx sildenafil 25 mg tablet (Viagra) 25 mg PO QDAY PRN sexual activity 11/11/24 Unknown Rx #20 tabs evolocumab 140 mg/mL subcutaneous 140 mg subcut Q2W #2 mL 11/13/24 Unknown Rx pen injector (Andres Titus) carvedilol 6.25 mg tablet 6.25 mg PO BID #180 tabs 11/26/24 Unknown Rx levocetirizine 5 mg tablet (Xyzal) 5 mg PO QDAY #30 tabs 12/17/24 Unknown Rx clonidine HCl 0.1 mg tablet 0.1 mg PO BID 02/02/25 Unknown History flash glucose sensor (FreeStyle 02/02/25 Unknown History Daron 2 Sensor kit) Allergy/AdvReac Type Severity Reaction Status Date / Time latex Allergy Unknown Unknown Verified 02/02/25 19:24 Epseimd-LLD-HwK Reductase AdvReac Severe muscle pain Verified 02/02/25 19:24 Inhibitor (Xikuqcj-Zlm-Jbr Reductase Inhibitor) Family History Mother Diabetes Myocardial infarction Heart disease High cholesterol Grandmother Parkinson disease Father Prostate cancer Grandfather COPD (chronic obstructive pulmonary disease) Surgical History Hx of bilateral cataract extraction (~06/2022) History of left heart catheterization (05/09/20) History of removal of cyst History of eye surgery Social History Smoking Status: Former smoker Smokeless tobacco user: chewing tobacco how long ago did patient quit smokin years ago second hand exposure: No alcohol intake: current alcohol intake frequency: a few times a month substance use type: does not use caffeine: Yes Type: coffee Number of servings: 3 ROS ROS ED Constitutional Constitutional ED: Reports chills; Denies fever(s) or weight loss Eyes Eyes: Denies change in vision or diplopia ENT ENT ED: Reports rhinorrhea; Denies ear pain or sore throat Cardiovascular Cardiovascular: Denies chest pain, orthopnea, palpitations or racing heartbeat Respiratory/Chest Respiratory/Chest: Reports cough, dyspnea and dyspnea on exertion; Denies orthopnea Gastrointestinal Gastrointestinal: Denies abdominal pain, diarrhea, nausea or vomiting Genitourinary Genitourinary ED: Denies dysuria, hematuria or urinary frequency Musculoskeletal Musculoskeletal: Denies arthralgias or myalgias Integumentary Denies abscess or rash Neurologic Neurologic: Denies headache(s) or weakness Psychiatric Psychiatric: Denies anxiety, depression, suicidal ideation or suicidal thoughts Endocrine Endocrinology: Denies polydipsia, polyphagia or polyuria Allergic/Immunologic Allergic/Immunologic ED: Denies mouth swelling, tongue swelling or urticaria EXAM Physical Exam Const Vital Signs: 02/02/25 19:23 02/02/25 19:26 02/02/25 19:32 Temperature 99.8 F H 99.8 F H Temperature Source Oral Oral Pulse Rate 87 98 Respiratory Rate 20 H 21 H Respiratory Effort Respiratory Pattern Blood Pressure 167/85 H 169/68 H Blood Pressure Mean 112 101 Pulse Ox 91 93 82 Oxygen Delivery Method Room Air Nasal Cannula Room Air Oxygen Flow Rate (L/min) 3 Fraction of Inspired Oxygen (FIO2) 02/02/25 19:33 02/02/25 19:36 02/02/25 20:00 Temperature Temperature Source Pulse Rate 82 Respiratory Rate Respiratory Effort Normal Respiratory Pattern Normal Blood Pressure 136/83 H Blood Pressure Mean 101 Pulse Ox 95 84 Oxygen Delivery Method Nasal Cannula Room Air Oxygen Flow Rate (L/min) 3 Fraction of Inspired Oxygen (FIO2) 02/02/25 20:50 02/02/25 21:00 02/02/25 21:10 Temperature 98.8 F Temperature Source Oral Pulse Rate 88 85 Respiratory Rate 18 14 Respiratory Effort Respiratory Pattern Normal Blood Pressure 207/55 H Blood Pressure Mean 105 Pulse Ox 94 Oxygen Delivery Method Nasal Cannula Nasal Cannula Oxygen Flow Rate (L/min) 2 2 Fraction of Inspired Oxygen (FIO2) 02/02/25 21:57 02/02/25 21:57 02/02/25 22:00 Temperature 99.7 F H Temperature Source Oral Pulse Rate 89 Respiratory Rate 19 H Respiratory Effort Respiratory Pattern Blood Pressure 187/70 H Blood Pressure Mean 103 Pulse Ox 83 87 86 Oxygen Delivery Method Nasal Cannula Nasal Cannula Nasal Cannula Oxygen Flow Rate (L/min) 2 6 6 Fraction of Inspired Oxygen (FIO2) 02/02/25 22:15 02/02/25 22:15 02/02/25 22:46 Temperature Temperature Source Pulse Rate 87 Respiratory Rate 28 H Respiratory Effort Respiratory Pattern Tachypnea Blood Pressure Blood Pressure Mean Pulse Ox 97 97 96 Oxygen Delivery Method Bi-pap Bi-pap Oxygen Flow Rate (L/min) Fraction of Inspired Oxygen (FIO2) 50 50 50 Positive well nourished and well developed General Appearance ED: well developed HEENT Reports normocephalic, head/scalp atraumatic and moist mucous membranes Eyes PERRL and EOMs intact bilaterally Neck no lymphadenopathy, supple and no JVD Resp normal respiratory effort Resp Narrative: Few scattered rhonchi Cardio regular rate, regular rhythm and no murmurs GI normal to inspection, nondistended, normoactive bowel sounds and non-tender Palpation: soft Back/Spine no CVA tenderness and normal ROM Extremity normal to inspection General Extremety ED: Yes edema General Extremity: edema bilateral lower extremity Details: mild Neuro oriented x3 and CN's II-XII intact bilaterally Sensorium / Orientation: alert Motor Exam: strength 5/5 throughout Psych mental status grossly normal Mood & Affect: Negative for depressed or tearful Skin no rashes or lesions noted and no wounds MDM MDM MDM Narrative Medical decision making narrative: Differential diagnosis includes pneumonia congestive heart failure pleural effusion viral syndrome ACS I sent the patient for chest x-ray when he returned again checked his oxygen on room air and it was again 85%. It was with a good waveform. He was placed back on nasal cannula. My independent interpretation of his chest x-ray is possible atypical pneumonia left lower lung. White count returns 6.9 hemoglobin of 10.1 platelet count of 326. INR 1.1 creatinine 2.38 with a BUN of 30 potassium 5.2 sodium 131 troponin initially 56 normal LFTs. EKG is nonischemic and sinus but with frequent PVCs. CTA of the chest was obtained. This demonstrates bilateral pleural effusions as well as some ground glass opacities. He is COVID-positive. Lactic acid is less than 1 Patient's oxygenation continued to deteriorate he was 85% on 6 L and noticeably more dyspneic. He was placed on BiPAP. Patient received a breathing treatment now has more rhonchorous lung sounds at the bases. He also received ceftriaxone and azithromycin. Patient has also received a dose of Lasix as well as Decadron. History & Record Review Discussion w/independent historian: Patient and Significant other Additional record(s) reviewed:: Prior ED visit and Prior labs Lab Data Attestation: I reviewed the patient's lab results. Labs: Laboratory Results - last 24 hr 02/02/25 21:00 WBC 6.9 RBC 3.53 L Hgb 10.1 L Hct 31.1 L MCV 88.1 MCH 28.6 MCHC 32.5 RDW Std Deviation 48.2 H RDW Coeff of Jesus 15.1 H Plt Count 326 MPV 8.9 Immature Gran % (Auto) 0.100 Neut % (Auto) 79.2 H Lymph % (Auto) 7.1 L Harris % (Auto) 12.8 H Eos % (Auto) 0.4 Baso % (Auto) 0.4 Absolute Neuts (auto) 5.5 Absolute Lymphs (auto) 0.49 L Nucleated RBC % 0 PT 14.1 INR 1.1 APTT 25.0 Sodium 131 L Potassium 5.2 H Chloride 99 Carbon Dioxide 21.9 Anion Gap 10 BUN 30 H Creatinine 2.38 H Estim Creat Clear Calc 28.54 L Est GFR (MDRD) Non-Af 29 L BUN/Creatinine Ratio 12.6 Glucose 263 H Lactic Acid < 1.0 Calcium 8.2 Total Bilirubin 0.32 Direct Bilirubin 0.15 AST 19 ALT 20 Alkaline Phosphatase 153 H Troponin T High Sens 56 H* D NT pro BNP II H Total Protein 6.4 Albumin 3.4 Globulin 2.9 Radiography Diagnostic Testing: Clinical Impression(s) from Imaging Studies Chest X-Ray 02/02/25 19:55 IMPRESSION: Bilateral lower lobe opacities likely chronic interstitial lung disease. Atypical pneumonia not excluded.. Reading Location: [facility] Chest CTA 02/02/25 20:37 IMPRESSION: No pulmonary arterial emboli. Borderline cardiomegaly. Fluid overload with small bilateral pleural effusions, interstitial and alveolar edema. Infectious/inflammatory component of ground-glass airspace opacities may be present. Reading Location: [facility] EKG Initial EKG: Attestation: I personally reviewed and interpreted this EKG as follows: Comments: Sinus rhythm ventricular rate of 86 bpm. Management Discussion w/another healthcare provider: Hospitalist (Dr. Smiley) Discharge Plan Dx/Rx/DC Orders Clinical Impression: COVID-19, Acute hypoxic respiratory failure, Bilateral pleural effusion, Atherosclerotic heart disease of [place] coronary artery without angina pectoris, Essential hypertension, CKD (chronic kidney disease), stage III, Type 1 diabetes mellitus, CHF (congestive heart failure) Disposition Disposition: Acute Care [facility]
[2025-02-02 21:20] LABS: Hematocrit 31.1 % (40-54); Hemoglobin 10.1 g/dL (13.0-16.5); Immature Granulocytes Count 0.010 X10^3/uL (0.0-0.0); Mean Corp Hgb Conc 32.5 g/dL (32-36); Mean Corpuscular Volume 88.1 fL (80-94); Mean Platelet Vol. 8.9 fl (6.2-12.0); NRBC Flagged by Analyzer 0 % (0-5); POSITIVE DIFFERENTIAL YES; Platelet Count 326 K/mm3 (150-450); RBC Distribution Width CV 15.1 % (11.6-14.6); RBC Distribution Width SD 48.2 fl (35.1-43.9); Red Blood Count 3.53 M/mm3 (4.6-6.2); White Blood Count 6.9 K/mm3 (4.4-11.0)
[2025-02-02 21:28] LABS: Prothrombin Time (Protime)PT. 14.1 SECONDS (11.7-14.9)
[2025-02-02 21:29] LABS: Partial Thromboplast Time 25.0 Seconds (24.1-36.2)
[2025-02-02 21:34] LABS: AST(SGOT) 19 U/L (<=37); Alanine Aminotransfer ALT/SGPT 20 U/L (<=46); Albumin, Serum 3.4 g/dL (3.4-4.8); Alkaline Phosphatase 153 U/L (40-129); Anion Gap 10 (5-15); BUN 30 mg/dL (4-19); BUN/Creat Ratio 12.6 RATIO (10-20); Bilirubin, Direct 0.15 mg/dL (0.00-0.30); Calcium,Total 8.2 mg/dL (7.6-11.0); Carbon Dioxide 21.9 mmol/L (21.0-32.0); Chloride 99 mmol/L (98-108); Estimated Creatinine Clearance 28.54 ml/min (50-250); Globulin 2.9 g/dL (2.2-4.2); Glucose 263 mg/dL (70-99); Potassium 5.2 mmol/L (3.3-5.1)
[2025-02-02 21:51] LABS: Troponin T High Sensitivity 56 ng/L (<=22)
--- NOTE | 2025-02-02 22:40 | HP.PCM.HOS_ITS ---
HPI - General General Date of Admission: 02/02/25 Date of Service: 02/02/25 Chief Complaint: Dyspnea. HPI Narrative The patient is a 64 y/o M w/ PMHx: CKD stage III unclear subtype per GFR trending, Chronic normocytic anemia, GERD, IDDM with chronic neuropathy, Carotid disease, Hypothyroidism, BPH with obstructive pathology, [place] on CPAP nightly, Former tobacco use->chew tobacco use, HTN, HLD who presents to the [facility] ED on 02/02/2025 with recent sinus issues x 2 weeks but no other marked symptoms or issues however over the last 1 to 2 days he had onset of cough, fatigue, malaise in addition to notable shortness of breath, more notable just on day of presentation noted on day of presentation climbing the stairs and became very winded with a very slight cough with subjective chills with no pleuritic chest discomfort prompting ED evaluation to be cautious. In the emergency room patient reportedly ambulated and when nursing staff rechecked his oxygenation he was initially noted to be 84% on room air. There are several ill family members with similar symptoms. Workup in the ED included T99.8, heart rate 87, BP 167/85, respiratory rate 20, 91% on room air however eventually desaturated down to 82% on room air with improvement to 94% on 2 L but desaturated again with most recent repeat vitals T99.7, heart rate 89, BP 187/70, respiratory rate 19, 86% on 6 L nasal cannula, CBC with WC 6.9, hemoglobin 10.1, MCV 88.1, platelet 326 with lymphopenia, unremarkable coags, CMP with sodium 131, potassium 5.2, BUN/creatinine 30/2.38, GFR 29, glucose 263, lactic acid less than 1, alk phos 153, troponin 56, NT proBNPII pending upon requested evaluation of patient, chest x-ray with bilateral lower lobe opacities possibly chronic interstitial lung disease per radiology with ED physician independent review with concern for possible atypical pneumonia left lower lobe, CTPA with no pulmonary arterial emboli, borderline cardiomegaly, fluid overload with small bilateral pleural effusions, interstitial and alveolar edema, infectious/inflammatory component of ground glass opacities may be present, EKG with SR without acute evidence of ischemia with PVCs, rapid SARS COVID/influenza/RSV with positive COVID. In the ED patient administered DuoNeb therapy, azithromycin 500 mg IV x 1, Rocephin 1 g IV x 1 in addition to Lasix 60 mg IV x 1. Review of weights with noted 12/17/2024 weight 166 pounds and current weight upon presentation 02/02/2025 weight 165 pounds 2.02 ounces this not marked weight gain. [facility] Medical History Chronic sinusitis Erectile dysfunction Claudication of both lower extremities Hilar density Abnormal chest xray Preop cardiovascular exam CKD (chronic kidney disease), stage III GERD (gastroesophageal reflux disease) Chest congestion Preoperative evaluation to rule out surgical contraindication Sinusitis Skin cyst Fatigue Left elbow pain Health care maintenance Proteinuria Nephropathy Bilateral lower extremity edema COVID-19 vaccine series completed Atherosclerotic heart disease of [place] coronary artery without angina pectoris Mixed hyperlipidemia 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 Diabetic foot ulcer associated with diabetes mellitus due to underlying condition Decubitus ulcer of foot, stage 2 Carotid artery stenosis Bradycardia Granuloma annulare Hypothyroidism BPH (benign prostatic hyperplasia) Abdominal pain Sleep apnea Hearing problem Back problem High calcium levels Type 1 diabetes mellitus Meniere's disease Acquired plantar keratoderma Essential hypertension Home Medications ?Medication ?Instructions ?Recorded ?Last Taken ?Type insulin lispro 100 unit/mL See Rx Instructions subcut TID 12/04/19 08/04/24 History subcutaneous pen (Humalog KwikPen e10.9 (U-100) Insulin) pen needle, diabetic 31 gauge x #100 ea 01/25/21 Unkno wn Rx 05/17 (BD Ultra-Fine Mini Pen Needle) handicap placard See Rx Instructions .Route 0 05/25/21 Unknown Rx .COMPLEX disability #1 unit compress.stocking,knee,reg,lrg #2 ea 01/09/24 Unknown Rx tadalafil 5 mg tablet 5 mg PO DAILY 03/11/2408/03 History blood-glucose sensor (FreeStyle 05/07/24 Unknown Hist ory Daron 2 Plus Sensor device) omeprazole 40 mg capsule,delayed 40 mg PO QDAY PRN kemal d 05/19/24 Unknown History release furosemide 40 mg tablet (Lasix) 40 mg PO QAM 08/26/24 Unknown History insulin glargine 100 unit/mL (3 25 unit subcut QAM dm 08/26/24 Unknown History mL) subcutaneous pen (Basaglar KwikPen U-100 Insulin) amlodipine 10 mg tablet 10 mg PO QDAY #90 tabs 10/07 Unknown Rx fluticasone propionate 50 1 spray intranasal DAILY PRN nasal 10/19/24 Unknown Rx mcg/actuation nasal congestion #16 grams spray,suspension levothyroxine 150 mcg tablet 150 mcg PO DAILY #90 tabs 10/19/24 Unknown Rx cholecalciferol (vitamin D3) 50 2,000 unit PO DAILY #9 0 caps 11/11/24 Unknown Rx mcg (2,000 unit) capsule losartan 100 mg tablet 100 mg PO DAILY #90 TABLETS 11/11/24 Unknown Rx sildenafil 25 mg tablet (Viagra) 25 mg PO QDAY PRN sex ual activity 11/11/24 Unknown Rx #20 tabs evolocumab 140 mg/mL subcutaneous 140 mg subcut Q2W ch olesterol #2 mL 11/13/24 Unknown Rx pen injector (Repatha SureClick) carvedilol 6.25 mg tablet 6.25 mg PO BID #180 tabs Unknown Rx levocetirizine 5 mg tablet (Xyzal) 5 mg PO QDAY #30 ta bs 12/17/24 Unknown Rx clonidine HCl 0.1 mg tablet 0.1 mg PO BID 02/02/25 Unk nown History flash glucose sensor (FreeStyle 02/02/25 Unknown Hist ory Daron 2 Sensor kit) Allergy/AdvReac Type Severity Reaction Status Date / Time latex Allergy Unknown Unknown Verified 02/02/25 19:24 Yadghkt-ALS-PzQ Reductase AdvReac Severe muscle pain Verified 02/02/25 19:24 Inhibitor (Iulljqd-Rns-Lac Reductase Inhibitor) Family History Mother Diabetes Myocardial infarction Heart disease High cholesterol Grandmother Parkinson disease Father Prostate cancer Grandfather COPD (chronic obstructive pulmonary disease) Surgical History Hx of bilateral cataract extraction (~06/2022) History of left heart catheterization (05/09/20) History of removal of cyst History of eye surgery Social History (Updated 02/02/25 @ 23:[address] Treasure Smiley MD) household members: spouse Smoking Status: Former smoker Smokeless tobacco user: chewing tobacco how long ago did patient quit smokin years ago second hand exposure: No alcohol intake: current alcohol intake frequency: a few times a month substance use type: does not use caffeine: Yes Type: coffee Number of servings: 3 ROS ROS Narrative Admission Review of Systems: CONSTITUTIONAL: No weight loss, fever, + chills, weakness or fatigue. HEENT: + Rhinorrhea, congestion, headache. Eyes: No visual loss, blurred vision, double vision or yellow sclerae. Ears, Nose, Throat: No hearing loss, sneezing, sore throat. SKIN: No rash or itching, lesions, wounds. CARDIOVASCULAR: No chest pain, chest pressure or chest discomfort, palpitations, edema, orthopnea, syncopal events. RESPIRATORY: + Dyspnea, cough without marked sputum production, dyspnea worse with exertion. No wheezing, hemoptysis. GASTROINTESTINAL: No anorexia, nausea, vomiting or diarrhea, abdominal pain, melena, BRBPR. GENITOURINARY: + Chronic urinary frequency/BPH. No dysuria, urgency or retention. NEUROLOGICAL: No headache, dizziness, syncope, paralysis, ataxia, numbness or tingling in the extremities, focal weakness, change in bowel or bladder control, seizure. MUSCULOSKELETAL: + muscle, back pain, joint pain or stiffness. HEMATOLOGIC: No anemia, bleeding or bruising. LYMPHATICS: No enlarged nodes. No history of splenectomy. PSYCHIATRIC: No history of depression or anxiety. ENDOCRINOLOGIC: No reports of sweating, cold or heat intolerance. No polyuria or polydipsia. ALLERGIES: No history of asthma, hives, eczema or rhinitis. Vital Signs Vital Signs Vital Signs: 02/02/25 19:23 02/02/25 19:26 02/02/25 19:32 Temperature 99.8 F H 99.8 F H Temperature Source Oral Oral Pulse Rate 87 98 Respiratory Rate 20 H 21 H Respiratory Effort Respiratory Pattern Blood Pressure 167/85 H 169/68 H Blood Pressure Mean 112 101 Pulse Ox 91 93 82 Oxygen Delivery Method Room Air Nasal Cannula Room Air Oxygen Flow Rate (L/min) 3 Fraction of Inspired Oxygen (FIO2) 02/02/25 19:33 02/02/25 19:36 02/02/25 20:00 Temperature Temperature Source Pulse Rate 82 Respiratory Rate Respiratory Effort Normal Respiratory Pattern Normal Blood Pressure 136/83 H Blood Pressure Mean 101 Pulse Ox 95 84 Oxygen Delivery Method Nasal Cannula Room Air Oxygen Flow Rate (L/min) 3 Fraction of Inspired Oxygen (FIO2) 02/02/25 20:50 02/02/25 21:00 02/02/25 21:10 Temperature 98.8 F Temperature Source Oral Pulse Rate 88 85 Respiratory Rate 18 14 Respiratory Effort Respiratory Pattern Normal Blood Pressure 207/55 H Blood Pressure Mean 105 Pulse Ox 94 Oxygen Delivery Method Nasal Cannula Nasal Cannula Oxygen Flow Rate (L/min) 2 2 Fraction of Inspired Oxygen (FIO2) 02/02/25 21:57 02/02/25 21:57 02/02/25 22:00 Temperature 99.7 F H Temperature Source Oral Pulse Rate 89 Respiratory Rate 19 H Respiratory Effort Respiratory Pattern Blood Pressure 187/70 H Blood Pressure Mean 103 Pulse Ox 83 87 86 Oxygen Delivery Method Nasal Cannula Nasal Cannula Nasal Cannula Oxygen Flow Rate (L/min) 2 6 6 Fraction of Inspired Oxygen (FIO2) 02/02/25 22:15 02/02/25 22:15 Temperature Temperature Source Pulse Rate 87 Respiratory Rate 28 H Respiratory Effort Respiratory Pattern Tachypnea Blood Pressure Blood Pressure Mean Pulse Ox 97 97 Oxygen Delivery Method Bi-pap Oxygen Flow Rate (L/min) Fraction of Inspired Oxygen (FIO2) 50 50 Weight Weight: 165 lb 2.02 oz Body Mass Index (BMI) 25.8 Physical Exam Narrative Physical Examination: General: Awake, alert, oriented x 3 and cooperative, seated upright in ED bed, BiPAP transition initiated, ongoing mildly increased respiratory rate with some accessory muscle usage but no distress. Skin: Normal color, normal turgor, no icterus, no cyanosis except occasional stage ecchymoses, abrasions especially lower extremities. HEENT: AT/NC, EOMI, PERRLA, mildly dry MM, BiPAP in place, difficult to discern carotid bruit given referred sound, no severely apparent JVD elevation. Lungs: Diminished, greater bases, mildly increased respiratory rate with some accessory muscle usage, BiPAP being placed, no marked evidence of any distress, no markedly appreciated rales, ronchi or wheezing. Heart: Currently regular rate and rhythm; no gallop, rub audible. Abdomen: Soft, NTTP, ND, distant normal BS, no appreciated HSM. Extremities: No cyanosis, clubbing, pedal to distal garcia 1+ pitting edema, see skin. Neurological: Patient awake, alert, oriented as noted, cognitive function intact; pupils equally reactive to light and accommodation, cranial nerves grossly normal, moving all 4 extremities, no focal deficits, strength severely globally decreased secondary to acute presentation complaints. Psychiatric: Affect appears fatigued, flat, ill-appearing, no acute evidence of depressive or anxiety feelings. Results Lab / Micro Data 02/02/25 21:00 02/02/25 21:00 Labs: Laboratory Results - last 24 hr 02/02/25 21:00: WBC 6.9, RBC 3.53 L, Hgb 10.1 L, Hct 31.1 L, MCV 88.1, MCH 28.6, MCHC 32.5, RDW Std Deviation 48.2 H, RDW Coeff of Jesus 15.1 H, Plt Count 326, MPV 8.9, Immature Gran % (Auto) 0.100, Neut % (Auto) 79.2 H, Lymph % (Auto) 7.1 L, M chance % (Auto) 12.8 H, Eos % (Auto) 0.4, Baso % (Auto) 0.4, Absolute Neuts (auto) 5.5, Absolute Lymphs (auto) 0.49 L, Nucleated RBC % 0, PT 14.1, INR 1.1, APTT 25.0, Sodium 131 L, Potassium 5.2 H, Chloride 99, Carbon Dioxide 21.9, Anion Gap 10, BUN 30 H, Creatinine 2.38 H, Estim Creat Clear Calc 28.54 L, Est GFR (MDRD) Non-Af 29 L, BUN/Creatinine Ratio 12.6, Glucose 263 H, Lactic Acid < 1.0, Calcium 8.2, Total Bilirubin 0.32, Direct Bilirubin 0.15, AST 19, ALT 20, A lkaline Phosphatase 153 H, Troponin T High Sens 56 H* D, Total Protein 6.4, Albumin 3.4, Globulin 2.9 Micro: Microbiology 02/02/25 21:00 Mucosa - Nose SARS-CoV-2, Influenza & RSV (PCR) - Final SARS-CoV-2 (COVID 19 PCR) Imaging Radiology Impression Chest X-Ray 02/02/25 19:55 IMPRESSION: Bilateral lower lobe opacities likely chronic interstitial lung disease. Atypical pneumonia not excluded.. Reading Location: [id number] Chest CTA 02/02/25 20:37 IMPRESSION: No pulmonary arterial emboli. Borderline cardiomegaly. Fluid overload with small bilateral pleural effusions, interstitial and alveolar edema. Infectious/inflammatory component of ground-glass airspace opacities may be present. Reading Location: [facility] Assessment & Plan Assessment/Plan (1) Acute hypoxic respiratory failure: (2) COVID-19: PLAN: Plan The patient is a 64 y/o M w/ PMHx: CKD stage III unclear subtype per GFR trending, Chronic normocytic anemia, GERD, IDDM with chronic neuropathy, Carotid disease, Hypothyroidism, BPH with obstructive pathology, [place] on CPAP nightly, Former tobacco use->chew tobacco use, HTN, HLD who presents to the [facility] ED on 02/02/2025 with recent sinus issues x 2 weeks but no other marked symptoms or issues however over the last 1 to 2 days he had onset of cough, fatigue, malaise in addition to notable shortness of breath, more notable just on day of presentation noted on day of presentation climbing the stairs and became very winded with a very slight cough with subjective chills with no pleuritic chest discomfort prompting ED evaluation to be cautious. #1. Acute hypoxic respiratory failure (transitioned to BIPAP in the ED) possibly multifactorial secondary to Acute BL COVID PNA and possible associated concurrent Overload/Acute HF exacerbation, presumed preserved EF with associated indeterminate cardiac enzymes suspected secondary to demand: Will admit to PCU, will request BiPAP therapy given concern for overload, will wean to room air as able, PRN albuterol, ATC duoneb therapy, will obtain D-dimer, procalcitonin, CRP, CPK, Ferritin, LDH per COVID order set protocol, BNP pending per ED, encourage HOB, IS parameters, continue to cycle cardiac enzymes, given concurrent concern for possible overload will additionally initiate and continue IV lasix diuresis with pulse dose x 2 additional as one administered in the ED and may continue further if felt clinically appropriate, monitor I/Os, will continue medical therapy, obtain TSH and magnesium level. Most recent ECHO noted 02/24/2024 with normal LV size, LV systolic function normal, LVEF 65% with mild concentric LVH. Given COVID presentation will defer repeat ECHO unless enzymes notably rise. Will initiate and continue IV Decadron, given more worsening symptoms over the last 48 hours will initiate remdesivir although timeline is not specific. #2. Hyperkalemia, mild: Admission potassium 5.2, only mildly elevated, will continue to trend and repeat level in AM. #3. Hypertension: Continue home regimen including losartan, Lasix, clonidine, Coreg, amlodipine with hold parameters as needed, PRN hydralazine. #4. Hyperlipidemia: Noted statin intolerance, defer to outpatient. #5. IDDM with chronic neuropathy: Will continue home insulin regimen, ADA diet, accu checks w/ ISS, per current medication list not on any gabapentin or Lyrica but clarified to be certain. #6. Chronic Kidney Disease Stage III, unclear subtype or GFR trending: Admission BUN/Cr 30/2.38, GFR 29, baseline renal function primarily 1.8-2.2 but has vacillated, repeat BMP in AM. #7. Chronic normocytic anemia: Admission hemoglobin 10.1, MCV 88.1, baseline 10-11, stable, continue to trend. #8. Former cigarette tobacco use-> chew tobacco: Encouraged continued cigarette tobacco cessation, encouraged to tobacco cessation, nicotine replacement if necessary. #9. Carotid disease: Noted in chart history, most recent duplex ultrasound noted 12/02/2024 with mild less than 50% stenosis right extracranial internal carotid, moderate 50 to 69% stenosis left extracranial internal carotid, patent antegrade vertebrals bilaterally, will continue aspirin, not on statin therapy secondary to statin intolerance, continue hypertensive regimen as well as diabetic regimen as noted. #10. BPH with obstructive pathology: Noted history, per current list does not appear to be on any regimen, clarifying to be certain, monitor for retention. #11. [place]: CPAP nightly, given presentation above in case of overload component will initiate on BiPAP therapy. #12. GERD: Will continue patient on PPI. #13. DVT prophylaxis: Heparin. #14. CODE status: Patient does not have healthcare power of litigation attorney associate living [address] place but notes his spouse who is present would be his medical decision-maker if necessary. Discussed CODE status at length including difference between FULL code, DNR-CCA and DNR-CC status. Following discussions about the differences in these status, requested Full Code status. Amenable to BIPAP and antiviral regimen concurrently with transition in the ED to BIPAP. Advanced Care Planning Face to Face Time: 16 minutes. Charges/Coding Visit Charges Inpatient E&M: 54685 Init Hosp L3 Procedures Hospitalists Procedures: 36611 Advncd Care Plan 30 Min
[2025-02-02] MEDS: Azithromycin 500 MG in 0.9% Normal Saline (250mL Bag) 250 ML 250 MG IV (22:45)
[2025-02-02 22:55] LABS: Pro- Brain NATRIURETIC PEPTIDE 19761 pg/mL (<=900)
--- OUTSIDE RECORDS SUMMARY | 2025-02-02 23:11 | XMS RPT_ITS | CCD ---
Author Organization [facility] Care Team Providers Care Registrar Assistant Name Role Phone Dr. Sherice Avendano Primary Care Provider [phone] Dr. Sherice Avendano Referring Provider [phone] CLINICAL DATA MANAGER, CLINICAL DATA MANAGER-C Gennaro Attending Provider Dr. Sherice Avendano Primary Care Provider [phone] Dr. Sherice Avendano Attending Provider [phone] Dr. Sherice Avendano Referring Provider [phone] Mc CLINICAL DATA MANAGER, CLINICAL DATA MANAGER-C Gennaro Attending Provider Dr. Sherice Avendano Primary Care Provider [phone] Dr. Sherice Avendano Attending Provider [phone] Dr. Sherice Avendano Referring Provider [phone] Mc FARR, CLINICAL DATA MANAGER-C Gennaro Attending Provider Dr. Nicholas Teixeira Attending Provider [phone] Dr. Sherice Avendano Primary Care Provider [phone] Mc CLINICAL DATA MANAGER, CLINICAL DATA MANAGER-C Gennaro Referring Provider Dr. Sherice Avendano Attending Provider [phone] Dr. Sherice Avendano Referring Provider [phone] German FARR, CLINICAL DATA MANAGER-C Chacorta Barraza Attending Provider [phone] ANIL Torres Attending Provider Unavailab Dr. Sherice Hirsch Primary Care Provider [phone]) Dr. Sherice Avendano Attending Provider [phone] Dr. Sherice Avendano Referring Provider [phone] SHAUN Porter NP Attending Provider [phone] ANIL Heller Attending Provider Dr. Sherice Avendano Primary Care Provider [phone]) Dr. Sheirce Avendano Referring Provider [phone] ANIL Heller Attending [...] Unavailable Gennaro Rai Attending Provider [phone] Gennaro aRi Referring Provider [phone] Dr. Sherice Avendano MD Primary Care Provider Dr. Sherice Avendano MD Referring Provider [phone] Puneet WERNER, Dr. Peterson Attending Provider Emanuel WERNER, Dr. Lord Attending Provider Treva WERNER, Dr. Bishop Attending Provider Treva WERNER, Dr. Bishop Referring Provider German CLINICAL DATA MANAGER-C, Chacorta H Other Provider Mc CLINICAL DATA MANAGER-C, Gennaro Other Provider Marlena Justin Attending Provider Marlena Justin Referring Provider Marlena Justin Other Provider Romana WERNER, Dr. Corey Attending Provider [phone] VIRGILIO CLINICAL DATA MANAGER-C, CANDICE Other Provider German CLINICAL DATA MANAGER-C, Chacorta H Attending Provider [phone] German CLINICAL DATA MANAGER-C, Chacorta H Referring Provider Romana WERNER, Dr. Corey Primary Care Provider Romana WERNER, Dr. Corey Referring Provider [phone] Dr. Denzel Carlin DO Emergency Provider Dr. Denzel Carlin DO Attending Provider Ungerer CLINICAL DATA MANAGER-C, Riya Attending Provider [phone] Romana WERNER, Dr. Corey Primary Care Provider Romana WERNER, Dr. Corey Referring Provider [phone] German CLINICAL DATA MANAGER-C, Chacorta Barraza Attending Provider Yan Gomez Attending Provider Romana WERNER, Dr. Corey Attending Provider [phone] Romana WERNER, Dr. Corey Primary Care Physician Dr. Denzel Carlin DO Attending Physician Dr. Denzel Carlin DO Emergency Department Physic kyra Moisesr CLINICAL DATA MANAGER-CRiya Attending Physician German CLINICAL DATA MANAGER-C, Chacorta Barraza Attending Physician Yan Gomez Attending Physician Romana WERNER, Dr. Corey Attending Physician German CLINICAL DATA MANAGER-CChacorta Referring Provider Romana WERNER, Dr. Corey Primary Care Physician Puneet WERNER, Dr. Peterson Attending Physician German CLINICAL DATA MANAGERChacorta Attending Unavailable Oleghe, Efewongbe Primary Care Unavailable [...] Unavailable Marlena Angel Referring Unavailabl e Emanuel, Nuevo Attending Unavailable Oleghe, Efewongbe Primary Care Unavailable [...] Physician Dr. Sherice Avendano MD Referring Provider [phone] Roof CLINICAL DATA MANAGER-Chacorta Valderrama Attending Physician Allergies Allergy Classification Reported Allergen(s) Allergy Type Date of Onset Reaction(s) Facility (2 sources) Adhesive agent Allergy to substance 2 Rash [facility] Work Phone: (20 sources) Latex Allergy to substance 2 Unknown [facility] (20 sources) Xjnkiwn-Opr-Rqq Reductase Inhibitor; Translations: [Mpckuup-Wiw-Qwx Reductase Inhibitor] Propensity to adverse reactions 2 muscle pain [facility] (1 source) Adhesive Tape; Translations: [ADHESIVE TAPE (ROSINS)] Propensity to adverse reactions (disorder) [address] [facility] Repository (1 source) Hmg-Coa Reductase Inhibitors (Statins); Translations: [LHYWHQD-JQO-MJV REDUCTASE INHIBITORS] Propensity to adverse reactions to drug (disorder) [address] [facility] Repository (1 source) Latex Drug allergy (disorder) 5 [facility] Repository Medications Current Medications Medication Drug Class(es) [...] Start: 05-19-2024 take 1 capsule by mo [facility] once daily Cholecalciferol (Vitamin D3) 50 mcg (2,000 unit) capsule Active 2000 U PO DAILY May 19, 2024 10:32am Start: 03-11-2020 End: 05-19-2024 take 1 capsule by mouth once daily Cholecalciferol (Vitamin D3) 50 mcg (2,000 unit) capsule Discontinued 50 ug PO DAILY March 11, 2020 1:00am May 19, 2024 10:34am 168 hr cloNIDine 0.90423 mg/hr transdermal system (16 sources) Central alpha-2 [...] Type 1 diabetes mellitus without complications Insulin Zenia (Disposable) (12 sources) Start: 01-25-2021 Insulin Needle [...] 17, 2024 12:00am Complies with drug therapy Manson-3 Fatty Acids (Fish Oil Concentrate) 1,000 mg capsule (20 sources) Start: 12-04-2019 take 1 capsule by mouth once daily Manson-3 Fatty Acids (Fish Oil Concentrate) 1,000 mg capsule Active 1000 MG PO DAILY December 04, 2019 9:42am Start: 12-04-2019 End: 01-16-2024 take 1 capsule by mouth once daily Manson-3 Fatty Acids (Fish Oil Concentrate) 1,000 mg capsule Discontinued 1000 mg PO DAILY December 04, 2019 12:00am January 16, 2024 3:03pm Start: 12-04-2019 take 1 capsule by [facility] once daily Manson-3 Fatty Acids (Fish Oil Concentrate) 1,000 mg capsule Active 1000 MG PO DAILY December 03, 2019 11:00pm Start: 12-04-2019 take 1 capsule by [facility] once daily Manson-3 Fatty Acids (Fish Oil Concentrate) 1,000 mg [...] November 07, 2020 December 06, 2020 11:05am [id number] 200 actuat albuterol 0.09 mg/actuat metered dose [...] February 27, 2022 9:29am Pt received from [facility] Start: 01-02-2022 End: 02-27-2022 take 12.5 mg by mouth once daily Chlorthalidone Discontinued 12.5 MG PO DAILY January 02, 2022 8:59am February 27, 2022 9:29am Start: 11-24-2021 End: 01-02-2022 take 1 tablet by mouth once daily Chlorthalidone 25 mg tablet Discontinued 25 mg PO DAILY December 05, 2021 12:00am January 02, 2022 9:00am Pt received from [facility] colchicine 0.6 mg oral tablet (20 sources) [...] extended release oral tablet (20 sources) Uncompetitive Z-xfodce-M-aspartate Receptor Antagonist, Sigma-1 Agonist Start: 10-26-2020 End: [...] units to 16 units SC TID Insulin Zenia (Disposable) 30 X 3/4 needle (10 sources) Start: 01-25-2021 End: 08-04-2024 Insulin Zenia (Disposable) 30 X 3/4 needle Discontinued 0 [...] Coronary atherosclerosis; Translations: [Atherosclerotic heart disease of [place] coronary artery without angina pectoris] Onset: 4 Chronic Comment on above: Diffuse coronary art sarahi disease with small vessels noted in the entire coronary vasculature. [facility] 05/09/20 Diabetes mellitus with complications (20 [...] Vis itosonja 12-17-2024 Internal Medicine Office Visit [facility] [address] [place] [address] [place] [address] OFFICE VISIT Date of Service: 12/17/24 MR#: [id number] Acct: [id number] Name: OLIVIER MENDOZA Rep #: [id number] : 1960 Provider: ANIL Dunn Age/Sex: 64/M Location: [facility] Status: Signed Intake Vital Signs 11/26/24 10:04 [...] Voicebox issues Chief Complaint: 6 M FU Testing Tech Required: No Is patient in pain?: No Allergies latex Allergy (Unknown, Verified 12/17/24 14:34) Unknown Kqrsbkp-EOW-InZ Reductase Inhibitor (Knarspo-Isf-Jvc Reductase Inhibitor) Adverse Reaction (Severe, Verified 12/17/24 [...] sore throat in the morning. [facility] Medical History Chronic sinusitis Erectile dysfunction Claudication of both lower extremities Hilar density Abnormal chest xray Preop cardiovascular exam CKD (chronic kidney disease), stage III GERD (gastroesophageal reflux disease) Chest congestion Preoperative evaluation to rule out surgical contraindication Sinusitis Skin cyst Fatigue Left elbow pain Health care maintenance Proteinuria Nephropathy Bilateral lower extremity edema COVID-19 vaccine series completed Atherosclerotic heart disease of [place] coronary artery without angina pectoris Mixed hyperlipidemia [...] eye valentin (more content not included)... Normal [facility] Duplex ultrasound of carotid artery reportOrdered By: Nicholas Teixeira on 12-02-2024 Study report [facility] [address] [place] [address] Carotid Duplex Ultrasound 12/01/24 0901 MR#: [id number] Acct: [id number] Name: OLIVIER MENDOZA Rep #:[id number] : 1960 63 From: Nicholas Chester Attending Dr: SHAUN Cardozo Sta tus: REG CLI Ordering Dr: Chacorta Porter NP Date: 12/01/24 Location: [facility] Sex: M C Admitted: [...] 12/02/241717 Date _ Nicholas Teixeira MD CC: CLINICAL DATA MANAGER-C Chacorta Porter; Dr. Sherice Avendano MD ~ Date Dictated: 12/01/24900 Date Transcribed: 12/02/241717 Retention Manager: Signed [facility] Work Phone: Carotid Duplex Ultrasoundon 12-01-2024 Carotid Duplex Ultrasound [facility] [address] [place], [place] [address] [address] Carotid Duplex Ultrasound 12/01/24900 MR#: [id number] Acct: [id number] Name: OLIVIER MENDOZA Rep #: [id number] : 1960 63 From: Nicholas Teixeira MD Attending Dr: Chacorta Porter, CLINICAL DATA MANAGER-C Status: REG CLI Ordering Dr: Chacorta Porter CLINICAL DATA MANAGER CLINICAL DATA MANAGER-C Date: 12/01/24 Location: [facility] Sex: M C [...] MD Date Dictated: 12/01/24900 Date Transcribed: 12/02/241717 Retention Manager: Signed Normal [facility] Cardiology Visit Reporton Cardiology Visit Report [facility] [address] [place] [address] OFFICE VISIT Date of Service: 11/26/24 MR#: [id number] Acct: [id number] Name: OLIVIER MENDOZA Rep #: [id number] : 1960 Provider: SHAUN lau Age/Sex: 63/M Location: [facility] Status: Signed HPI HPI History of [...] air Intake Visit Reasons: 3 M FU Testing Tech Required: No Accompanied by: Self Is patient in pain?: No Allergies latex Allergy (Unknown, Verified 11/26/24 09:58) Unknown Mgyqvfo-ARC-TiW Reductase Inhibitor (Ocdnykm-Lwk-Jag Reductase Inhibitor) Adverse Reaction (Severe, Verified 11/26/24 [...] but insurance will not cover. [facility] Medical History Chronic sinusitis Erectile dysfunction Claudication of both lower extremities Hilar density Abnormal chest xray Preop cardiovascular exam CKD (chronic kidney disease), stage III GERD (gastr (more content not included)... Normal [facility] Internal Medicine Office Vis itosonja 11-11-2024 Internal Medicine Office Visit [facility] [place] [address] [place] [address] OFFICE VISIT Date of Service: 11/11/24 MR#: [id number] Acct: [id number] Name: OLIVIER MENDOZA Rep #: [id number] : 1960 Provider: Dr. Sherice rock MD Age/Sex: 63/M Location: [facility] Status: Signed Intake Vital Signs 05/07/24 13:35 10/28/24 09:40 Height 5 ft 7 in 5 ft 7 in Intake Visit Reasons: 6 M FU Chief Complaint: 6 M FU Is patient in pain?: No Allergies latex Allergy (Unknown, Verified 11/11/24 10:08) Unknown Hartpxd-UFZ-PwB Reductase Inhibitor (Fckqcnz-Gtd-Gxw Reductase Inhibitor) Adverse Reaction (Severe, Verified 11/11/24 [...] vaccine series completed Atherosclerotic heart disease of [place] coronary artery without angina pectoris Mixed hyperlipidemia [...] follow-up o (more content not included)... Normal [facility] Laboratory - Hematology and Cell countsOrdered By: Sherice Avendano on 11-11-2024 HbA1c (Bld) [Mass fraction] 8.4 % High 4.2-6.3 [facility] Internal Medicine Office Vis iton 10-28-2024 Internal Medicine Office Visit [facility] [address] [place] [address] [place] [address] OFFICE VISIT Date of Service: 10/28/24 MR#: [id number] Acct: [id number] Name: OLIVIER MENDOZA Rep #: [id number] : 1960 Provider: ANIL Dunn Age/Sex: 63/M Location: [facility] Status: Signed Intake Vital Signs 08/26/24 09:11 [...] Reasons: Voicebox concerns Chief Complaint: voice box Testing Tech Required: No Accompanied by: Self Is patient in pain?: No Allergies latex Allergy (Unknown, Verified 10/28/24 09:34) Unknown Ifhvbxw-RUW-HmV Reductase Inhibitor (Uxbebrx-Ane-Lmj Reductase Inhibitor) Adverse Reaction (Severe, Verified 10/28/24 [...] vaccine series completed Atherosclerotic heart disease of [place] coronary artery without angina pectoris Mixed hyperlipidemia [...] frequency: a (more content not included)... Normal [facility] Microalb:Creat Ratio,Random URon 09-28-2024 MALB:CREAT 2946.7 mg/g CRE High <30 mg/g CRE [facility] Comment on above: Result Comment: AMENDED REPORT 09/28/242128 MALB:CREAT previously reported as: 93707.5 mg/g CRE Performed By: #### L 100.0100, L501.4021, L500.2500 #### [facility] [address] [place], [address] Cardiology Visit Reporton Cardiology Visit Report [facility] [address] [place] [address] OFFICE VISIT Date of Service: 08/26/24 MR#: [id number] Acct: [id number] Name: OLIVIER MENDOZA Rep #: [id number] : 1960 Provider: SHAUN lau Age/Sex: 63/M Location: [facility] Status: Signed HPI HPI History of Present [...] Visit Reasons: S/P ER, severe hypertension L.L. Testing Tech Required: No Is patient in pain?: No Allergies latex Allergy (Unknown, Verified 08/26/24 09:18) Unknown Dheowll-GNQ-WiI Reductase Inhibitor (Wvodshs-Xwn-Ipk Reductase Inhibitor) Adverse Reaction (Severe, Verified 08/26/24 [...] COVID-19 vaccin (more content not included)... Normal [facility] Internal Medicine Office Vis iton 08-20-2024 Internal Medicine Office Visit [facility] [address] [place] [address] [place] [address] OFFICE VISIT Date of Service: 08/20/24 MR#: [id number] Acct: [id number] Name: OLIVIER MENDOZA Rep #: [id number] : 1960 Provider: SHAUN abernathy Age/Sex: 63/M Location: [facility] Status: Signed Intake Vital Signs 08/04/24 13:41 [...] latex Allergy (Unknown, Verified 08/20/24 11:07) Unknown Rwchdhb-DWF-LiW Reductase Inhibitor (Ynhajbz-Tbg-Ytq Reductase Inhibitor) Adverse Reaction (Severe, Verified 08/20/24 [...] 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 is 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 the bsa/aml compliance officer office to get BP lowered pt denies any chest pain or shortness of breath at this time 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 tried to take IBU for the neck pain however it sent his blood pressure through the roof so now he no longer uses this [facility] Medical History Claudication of both lower extremities Hilar density Abnormal chest xray Preop cardiovascular exam CKD (chronic kidney disease), stage III GERD (gastroesophageal reflux disease) Chest congestion Preoperative evaluation to rule out surgical contraindication Sinusitis Skin cyst Fatigue Left elbow pain Health care maintenance Proteinuria Nephropathy Bilateral lower extremity edema COVID-19 vaccine series completed Atherosclerotic heart disease of [place] coronary artery without angina pectoris Mixed hyperlipidemia [...] Heart dis (more content not included)... Normal [facility] Absolute lymphocyte countOrd ered By: Denzel Carlin on 08-04-2024 Lymphocytes Auto (Unsp spec) [#/Vol] 1.01 10*3/uL 0.83-4.51 [facility] Absolute neutrophil countOrd ered By: Denzel Carlin on 08-04-2024 Neutrophils (Bld) [#/Vol] 5.4 10*3/uL 2.0-7.7 [facility] Anion gap in Serum or Plasma Ordered By: Denzel Carlin on 08-04-2024 Anion gap [Moles/Vol] 10 mmol/L - [facility] Automated lymphocyte count a s percentage of total leukocytesOrdered By: Denzel Carlin on 08-04-2024 Lymphocytes/100 WBC Auto (Unsp spec) 13.9 % Low - [facility] BUN/creatinine ratioOrdered By: Denzel Carlin on 08-04-2024 Urea nitrogen/Creatinine [Mass ratio] 16.7 mg/mg - [facility] Basic Metabolic Profile (BMP )on 08-04-2024 BUN/CRE 16.7 RATIO Normal - [facility] Comment on above: Performed By: #### L 100.0100, L501.4021, L500.2500 #### [facility] [address] [place], [address] Calcium [Mass/Vol] 9.3 mg/dL Normal 7.6-11.0 [facility] Comment on above: Performed By: #### L 100.0100, L501.4021, L500.2500 #### [facility] [address] [place], [address] Chloride [Moles/Vol] 102 mmol/L Normal 98-108 [facility] Comment on above: Performed By: #### L 100.0100, L501.4021, L500.2500 #### [facility] [address] [place], [address] CO2 [Moles/Vol] 24.7 mmol/L Normal 21.0-32.0 [facility] Comment on above: Performed By: #### L 100.0100, L501.4021, L500.2500 #### [facility] [address] [place], [address] Creatinine [Mass/Vol] 2.20 mg/dL High 0.70-1.20 [facility] Comment on above: Performed By: #### L 100.0100, L501.4021, L500.2500 #### [facility] [address] [place], [address] ECRCL 31.30 ml/min Low 50-250 [facility] Comment on above: Performed By: #### L 100.0100, L501.4021, L500.2500 #### [facility] [address] [place], [address] GAP 10 Normal 5-15 [facility] Comment on above: Performed By: #### L 100.0100, L501.4021, L500.2500 #### [facility] [address] [place], [address] GFR/1.73 sq M.predicted among non-blacks MDRD (S/P/Bld) [Vol rate/Area] 32 mL/min/{1.73_m2} Low >60 [facility] Comment on above: Result Comment: mL/m in/1.73m2 CKD-EPI Creatinine Equation (2020) Performed By: #### L 100.0100, L501.4021, L500.2500 #### [facility] [address] [place], [address] Glucose [Mass/Vol] 130 mg/dL High 70-99 [facility] Comment on above: Performed By: #### L 100.0100, L501.4021, L500.2500 #### [facility] [address] [place], [address] Potassium [Moles/Vol] 5.3 mmol/L High 3.3-5.1 [facility] Comment on above: Performed By: #### L 100.0100, L501.4021, L500.2500 #### [facility] [address] [place], [address] Sodium [Moles/Vol] 136 mmol/L Normal 133-145 [facility] Comment on above: Performed By: #### L 100.0100, L501.4021, L500.2500 #### [facility] [address] [place], [address] Urea nitrogen [Mass/Vol] 37 mg/dL High 4-19 [facility] Comment on above: Performed By: #### L 100.0100, L501.4021, L500.2500 #### [facility] [address] [place], [address] Basophil percentageOrdered B y: Denzel Carlin on 08-04-2024 Basophils/100 WBC (Bld) 0.4 % 0-1 [facility] CBC W/Diff, Automatedon 06-0 Absolute Lymph 1.01 X10 3/uL Normal 0.83-4.51 [facility] Comment on above: Performed By: #### L 100.0100, L501.4021, L500.2500 #### [facility] [address] [place], [address] Absolute Neut 5.4 X10 3/uL Normal 2.0-7.7 [facility] Comment on above: Performed By: #### L 100.0100, L501.4021, L500.2500 #### [facility] [address] [place], [address] Basophils/100 WBC (Bld) 0.4 % Normal 0-1 [facility] Comment on above: Performed By: #### L 100.0100, L501.4021, L500.2500 #### [facility] [address] [place], [address] Eosinophils/100 WBC (Bld) 3.7 % Normal 0-5 [facility] Comment on above: Performed By: #### L 100.0100, L501.4021, L500.2500 #### [facility] [address] [place], [address] Erythrocyte distribution width (RBC) [Ratio] 14.4 % Normal 11.6-14.6 [facility] Comment on above: Performed By: #### L 100.0100, L501.4021, L500.2500 #### [facility] [address] [place], [address] Hematocrit (Bld) [Volume fraction] 35.2 % Low 40-54 [facility] Comment on above: Performed By: #### L 100.0100, L501.4021, L500.2500 #### [facility] [address] [place], [address] Hemoglobin (Bld) [Mass/Vol] 11.6 g/dL Low 13.0-16.5 [facility] Comment on above: Performed By: #### L 100.0100, L501.4021, L500.2500 #### [facility] [address] [place], [address] IG% 0.300 Normal 0.0-0.9 [facility] Comment on above: Result Comment: IG% - Immature Granulocytes (promyelocytes, myelocytes and metamyelocytes) > 1% indicates that a LEFT SHIFT is Present. Performed By: #### L 100.0100, L501.4021, L500.2500 #### [facility] [address] [place], [address] Lymphocytes/100 WBC (Bld) 13.9 % Low 19-41 [facility] Comment on above: Performed By: #### L 100.0100, L501.4021, L500.2500 #### [facility] [address] [place], [address] MCH (RBC) [Entitic mass] 29.0 pg Normal 27.0-32.0 [facility] Comment on above: Performed By: #### L 100.0100, L501.4021, L500.2500 #### [facility] [address] [place], [address] MCHC (RBC) [Mass/Vol] 33.0 g/dL Normal 32-36 [facility] Comment on above: Performed By: #### L 100.0100, L501.4021, L500.2500 #### [facility] [address] [place], [address] MCV (RBC) [Entitic vol] 88.0 fL Normal 80-94 [facility] Comment on above: Performed By: #### L 100.0100, L501.4021, L500.2500 #### [facility] [address] [place], [address] Monocytes/100 WBC (Bld) 7.4 % Normal 0-10 [facility] Comment on above: Performed By: #### L 100.0100, L501.4021, L500.2500 #### [facility] [address] [place], [address] Neutrophils/100 WBC (Bld) 74.3 % High 47-70 [facility] Comment on above: Performed By: #### L 100.0100, L501.4021, L500.2500 #### [facility] [address] [place], [address] Nucleated RBC (Bld) [#/Vol] 0 10*3/uL Normal 0-5 [facility] Comment on above: Performed By: #### L 100.0100, L501.4021, L500.2500 #### [facility] [address] [place], [address] Platelet mean volume (Bld) [Entitic vol] 8.7 fL Normal 6.2-12.0 [facility] Comment on above: Performed By: #### L 100.0100, L501.4021, L500.2500 #### [facility] [address] [place], [address] Platelets (Bld) [#/Vol] 404 10*3/uL Normal 150-450 [facility] Comment on above: Performed By: #### L 100.0100, L501.4021, L500.2500 #### [facility] [address] [place], [address] RBC (Bld) [#/Vol] 4.00 10*6/uL Low 4.6-6.2 [facility] Comment on above: Performed By: #### L 100.0100, L501.4021, L500.2500 #### [facility] [address] [place], [address] RDW SD 46.0 fl High 35.1-43.9 [facility] Comment on above: Performed By: #### L 100.0100, L501.4021, L500.2500 #### [facility] [address] [place], [address] WBC (Bld) [#/Vol] 7.3 10*3/uL Normal 4.4-11.0 [facility] Comment on above: Performed By: #### L 100.0100, L501.4021, L500.2500 #### [facility] [address] [facility] [place], [address] Carbon dioxide, total [Moles /volume] in Central venous bloodOrdered By: Denzel Carlin on 08-04-2024 CO2 [Moles/Vol] 24.7 mmol/L 21.0-32.0 [facility] Chest PA and Lateralon 08-04 Chest PA and Lateral [facility] Imaging Services [address] [place] [address] Chest PA and Lateral MR#: [id number] Acct: [id number] Name: OLIVIER MENDOZA Rep #: [id number] : 1960 M 63 From: Avi Mckinley MD PCP: Dr. Sherice Avendano MD Status: REG ER Study: Chest PA and Lateral Date of Exam: 08/04/24 Exam# [id number] Ordering Dr: Denzel Carlin DO PROCEDURE: CHEST [...] Borderline cardiomegaly. No significant change. Reading Location: [id number] CC: Dr. Sherice Avendano MD; Dr. Denzel Carlin DO Retention Manager: Signed Normal [facility] Chloride assayOrdered By: Kareem Carlin on 08-04-2024 Chloride [Moles/Vol] 102 mmol/L 98-108 [facility] Emergency Department Summary on 08-04-2024 Emergency Department Summary [facility] Medical Records Department [address] [place] [address] Emergency Department Summary 08/04/24 MR#: [id number] Acct: [id number] Name: OLIVIER MENDOZA Rep #: [id number] : 1960 63 From: Denzel Carlin DO [...] a stress test and an entire workup [facility] Medical History Claudication of both lower extremities Hilar density Abnormal chest xray Preop cardiovascular exam CKD (chronic kidney disease), stage III GERD (gastroesophageal reflux disease) Chest congestion Preoperative evaluation to rule out surgical contraindication Sinusitis Skin cyst Fatigue Left elbow pain Health care maintenance Proteinuria Nephropathy Bilateral lower extremity edema COVID-19 vaccine series completed Atherosclerotic heart disease of [place] coronary artery without angina pectoris Mixed hyperlipidemia [...] latex Allergy Unknown Unknown Verified 08/04/24 13:41 Cqqnlhg-QQH-RsG Reductase AdvReac Severe muscle pain Verified 08/04/24 13:41 Inhibitor (Uofgvgi-Tfz-Fpc Reductase Inhibitor) Family History Mother Diabetes Myocardial infarction Heart disease High cholesterol Grandmother Parkinson disease Father Prostate cancer Grandfather COPD (chronic obstructive pulmonary disease) Surgical History Hx of bilateral cataract extraction ( 06/2022) History of left heart catheterization (05/09/20) History of removal of cyst History of eye surgery Social History Smoking Status: Former smoker Smo (more content not included)... Normal [facility] Eosinophil percentageOrdered By: Denzel Carlin on 08-04-2024 Eosinophils/100 WBC (Bld) 3.7 % 0-5 [facility] Erythrocyte distribution wid th ratioOrdered By: Denzel Carlin on 08-04-2024 Erythrocyte distribution width (RBC) [Ratio] 14.4 % 11.6-14.6 [facility] Erythrocyte distribution wid th standard deviationOrdered By: Denzel Carlin on 08-04-2024 Erythrocyte distribution width (RBC) [Ratio] 46.0 fl High 35.1-43.9 [facility] Glomerular filtration rate ( GFR) estimation/1.73 sq m using serum, plasma, or whole bOrdered By: Denzel Carlin on 08-04-2024 GFR/1.73 sq M.predicted among non-blacks MDRD (S/P/Bld) [Vol rate/Area] 32 mL/min/{1.73_m2} Low >60 [facility] Comment on above: mL/min/1.73m2 CKD-EP I Creatinine Equation (2020) Hematocrit Auto (Bld) [Volum e fraction]Ordered By: Denzel Carlin on 08-04-2024 Hematocrit (Bld) [Volume fraction] 35.2 % Low 40-54 [facility] Hemoglobin measurementOrdere d By: Denzel Carlin on 08-04-2024 Hemoglobin (Bld) [Mass/Vol] 11.6 g/dL Low 13.0-16.5 [facility] Immature granulocytes/100 WB C Auto (Bld)Ordered By: Denzel Carlin on 08-04-2024 Immature granulocytes/100 WBC (Bld) 0.300 % 0.0-0.9 [facility] Comment on above: IG% - Immature Granu locytes (promyelocytes, myelocytes and metamyelocytes) > 1% indicates that a LEFT SHIFT is Present. L499.0042on 08-04-2024 Trop T High Sen 32 ng/L High <=22 [facility] Comment on above: Performed By: #### L 499.0042 #### [facility] [address] [place], [address] L499.0043on 08-04-2024 Trop T High Sen Normal <=22 [facility] Comment on above: Result Comment: Canc elled via OM: MD Ordered Performed By: #### L 100.0100, L501.4021, L500.2500 #### [facility] [address] [place], [address] L501.4021on 08-04-2024 Trop T High Sen 35 ng/L High <=22 [facility] Comment on above: Performed By: #### L 100.0100, L501.4021, L500.2500 #### [facility] [address] [place], [address] MCV (mean corpuscular volume ) determinationOrdered By: Denzel Carlin on 08-04-2024 MCV (RBC) [Entitic vol] 88.0 fL 80-94 [facility] Mean corpuscular hemoglobin (MCH) determinationOrdered By: Denzel Carlin on 08-04-2024 MCH (RBC) [Entitic mass] 29.0 pg 27.0-32.0 [facility] Mean corpuscular hemoglobin concentration (MCHC) determinationOrdered By: Denzel Carlin on 08-04-2024 MCHC (RBC) [Mass/Vol] 33.0 g/dL 32-36 [facility] Mean platelet volume determi nationOrdered By: Denzel Carlin on 08-04-2024 Platelet mean volume (Bld) [Entitic vol] 8.7 fL 6.2-12.0 [facility] Monocyte percentageOrdered B y: Denzel Carlin on 08-04-2024 Monocytes/100 WBC (Bld) 7.4 % 0-10 [facility] Neutrophil percentageOrdered By: Denzel Carlin on 08-04-2024 Neutrophils/100 WBC (Bld) 74.3 % High 47-70 [facility] Nucleated red blood cell per centageOrdered By: Denzel Carlin on 08-04-2024 Nucleated RBC/100 WBC (Bld) [Ratio] 0 % 0-5 [facility] Platelet countOrdered By: Kareem Carlin on 08-04-2024 Platelets (Bld) [#/Vol] 404 10*3/uL 150-450 [facility] Potassium measurement (mass/ volume)Ordered By: Denzel Carlin on 08-04-2024 Potassium (Unsp spec) [Mass/Vol] 5.3 mmol/L High 3.3-5.1 [facility] RBC Auto (Bld) [#/Vol]Ordere d By: Denzel Carlin on 08-04-2024 RBC (Bld) [#/Vol] 4.00 10*6/uL Low 4.6-6.2 [facility] Serum creatinine measurement (mass/volume)Ordered By: Denzel Carlin on 08-04-2024 Creatinine [Mass/Vol] 2.20 mg/dL High 0.70-1.20 [facility] Serum glucose measurement (m ass/volume)Ordered By: Denzel Carlin on 08-04-2024 Glucose [Mass/Vol] 130 mg/dL High 70-99 [facility] Serum or plasma calcium tiera urement (mass/volume)Ordered By: Denzel Carlin on 08-04-2024 Calcium [Mass/Vol] 9.3 mg/dL 7.6-11.0 [facility] Serum or plasma urea nitroge n measurement (mass/volume)Ordered By: Denzel Carlin on 08-04-2024 Urea nitrogen [Mass/Vol] 37 mg/dL High 4-19 [facility] Sodium levelOrdered By: Morris Carlin on 08-04-2024 Sodium [Moles/Vol] 136 mmol/L 133-145 [facility] Troponin T.cardiac [Mass/vol ume] in Serum or Plasma by High sensitivity methodOrdered By: Denzel Carlin on 08-04-2024 Troponin T.cardiac High sensitivity method [Mass/Vol] 32 ng/L High <22 [facility] Troponin T.cardiac High sensitivity method [Mass/Vol] 35 ng/L High <22 [facility] White blood cell (WBC) count Ordered By: Denzel Carlin on 08-04-2024 WBC (Bld) [#/Vol] 7.3 10*3/uL 4.4-11.0 [facility] Anion gap in Serum or Plasma Ordered By: Chacorta Porter on 06-10-2024 Anion gap [Moles/Vol] 11 mmol/L - [facility] BUN/creatinine ratioOrdered By: Chacorta Porter on 06-10-2024 Urea nitrogen/Creatinine [Mass ratio] 14.1 mg/mg - [facility] Basic Metabolic Profile (BMP )on 06-10-2024 BUN/CRE 14.1 RATIO Normal 12-21 [facility] Comment on above: Performed By: #### L 500.2500 #### [facility] [address] [place], [address] Calcium [Mass/Vol] 8.5 mg/dL Normal 7.6-11.0 [facility] Comment on above: Performed By: #### L 500.2500 #### [facility] [address] [place], [address] Chloride [Moles/Vol] 99 mmol/L Normal 98-108 [facility] Comment on above: Performed By: #### L 500.2500 #### [facility] [address] [place], [address] CO2 [Moles/Vol] 23.9 mmol/L Normal 21.0-32.0 [facility] Comment on above: Performed By: #### L 500.2500 #### [facility] [address] [place], [address] Creatinine [Mass/Vol] 1.90 mg/dL High 0.70-1.20 [facility] Comment on above: Performed By: #### L 500.2500 #### [facility] [address] [place], [address] GAP 11 Normal 5-15 [facility] Comment on above: Performed By: #### L 500.2500 #### [facility] [address] [place], [address] GFR/1.73 sq M.predicted among non-blacks MDRD (S/P/Bld) [Vol rate/Area] 39 mL/min/{1.73_m2} Low >60 [facility] Comment on above: Result Comment: mL/m in/1.73m2 CKD-EPI Creatinine Equation (2020) Performed By: #### L 500.2500 #### [facility] [address] [place], [address] Glucose [Mass/Vol] 251 mg/dL High 70-99 [facility] Comment on above: Performed By: #### L 500.2500 #### [facility] [address] [place], [address] Potassium [Moles/Vol] 5.0 mmol/L Normal 3.3-5.1 [facility] Comment on above: Performed By: #### L 500.2500 #### [facility] [address] [place], [address] Sodium [Moles/Vol] 134 mmol/L Normal 133-145 [facility] Comment on above: Performed By: #### L 500.2500 #### [facility] [address] [place], [address] Urea nitrogen [Mass/Vol] 27 mg/dL High 4-19 [facility] Comment on above: Performed By: #### L 500.2500 #### [facility] [address] [place], [address] Carbon dioxide, total [Moles /volume] in Central venous bloodOrdered By: Chacorta Porter on 06-10-2024 CO2 [Moles/Vol] 23.9 mmol/L 21.0-32.0 [facility] Chloride assayOrdered By: Lata Porter on 06-10-2024 Chloride [Moles/Vol] 99 mmol/L 98-108 [facility] GFR/1.73 sq M.predicted chay g non-blacks MDRD (S/P/Bld) [Vol rate/Area]Ordered By: Chacorta Porter on 06-10-2024 Estimated GFR (MDRD) Non-Af Amer 39 Low >60 [facility] Comment on above: mL/min/1.73m2 CKD-EP I Creatinine Equation (2020) Glomerular filtration rate ( GFR) estimation/1.73 sq m using serum, plasma, or whole bOrdered By: Chacorta Porter on 06-10-2024 GFR/1.73 sq M.predicted among non-blacks MDRD (S/P/Bld) [Vol rate/Area] 39 mL/min/{1.73_m2} Low >60 [facility] Comment on above: mL/min/1.73m2 CKD-EP I Creatinine Equation (2020) Potassium (Unsp spec) [Mass/ Vol]Ordered By: Chacorta Porter on 06-10-2024 Potassium [Moles/Vol] 5.0 mmol/L 3.3-5.1 [facility] Potassium measurement (mass/ volume)Ordered By: Chacorta Porter on 06-10-2024 Potassium (Unsp spec) [Mass/Vol] 5.0 mmol/L 3.3-5.1 [facility] Serum creatinine measurement (mass/volume)Ordered By: Chacorta Porter on 06-10-2024 Creatinine [Mass/Vol] 1.90 mg/dL High 0.70-1.20 [facility] Serum glucose measurement (m ass/volume)Ordered By: Chacorta Porter on 06-10-2024 Glucose [Mass/Vol] 251 mg/dL High 70-99 [facility] Serum or plasma calcium tiera urement (mass/volume)Ordered By: Chacorta Potrer on 06-10-2024 Calcium [Mass/Vol] 8.5 mg/dL 7.6-11.0 [facility] Serum or plasma urea nitroge n measurement (mass/volume)Ordered By: Chacorta Porter on 06-10-2024 Urea nitrogen [Mass/Vol] 27 mg/dL High 4-19 [facility] Sodium levelOrdered By: Chacorta Porter on 06-10-2024 Sodium [Moles/Vol] 134 mmol/L 133-145 [facility] Cardiology Visit Reporton Cardiology Visit Report [facility] 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 Required: No Is patient in pain?: No Allergies latex Allergy (Unknown, Verified 05/19/24 10:31) Unknown Zrywird-AUE-YjR Reductase Inhibitor (Ywshaus-Ylj-Iht Reductase Inhibitor) Adverse Reaction (Severe, Verified 05/19/24 [...] you fallen in the past year?: No [facility] Medical History (Reviewed 05/19/24 @ 10:56 by Chacorta Porter CLINICAL DATA MANAGER, CLINICAL DATA MANAGER-C) Claudication of both lower extremities Hilar density Abnormal chest xray Preop cardiovascular exam CKD (chronic kidney disease), stage III GERD (gastroesophageal reflux disease) Chest congestion Preoperative evaluation to rule out surgical contraindication (more content not included)... Normal [facility] Absolute lymphocyte countOrd ered By: Sherice Avendano on 05-15-2024 Lymphocytes Auto (Unsp spec) [#/Vol] 0.88 10*3/uL 0.83-4.51 [facility] Absolute neutrophil countOrd ered By: Sherice Avendano on 05-15-2024 Neutrophils (Bld) [#/Vol] 3.7 10*3/uL 2.0-7.7 [facility] Albumin DL <= 20 mg/L (U) [M ass/Vol]Ordered By: Sherice Avendano on 05-15-2024 Urine Random Microalbumin 498.0 mg/L NO RANGE EST. [facility] Anion gap in Serum or Plasma Ordered By: Sherice Avendano on 05-15-2024 Anion gap [Moles/Vol] 11 mmol/L 5-15 [facility] Automated lymphocyte count a s percentage of total leukocytesOrdered By: Sherice Avendano on 05-15-2024 Lymphocytes/100 WBC Auto (Unsp spec) 16.6 % Low 19-41 [facility] BUN/creatinine ratioOrdered By: [facility] on 05-15-2024 Urea nitrogen/Creatinine [Mass ratio] 16.5 mg/mg 10- [facility] Basophil percentageOrdered B y: Sherice Avendano on 05-15-2024 Basophils/100 WBC (Bld) 0.6 % 0-1 [facility] Bilirubin, totalOrdered By: Sherice Avendano on 05-15-2024 Bilirubin [Mass/Vol] 0.40 mg/dL 0.00-1.30 [facility] CBC W/Diff, Automatedon 05-02 Absolute Lymph 0.88 X10 3/uL Normal 0.83-4.51 [facility] Comment on above: Performed By: #### L 100.0100 #### [facility] [address] [place], [address] Absolute Neut 3.7 X10 3/uL Normal 2.0-7.7 [facility] Comment on above: Performed By: #### L 100.0100 #### [facility] [address] [place], [address] Basophils/100 WBC (Bld) 0.6 % Normal 0-1 [facility] Comment on above: Performed By: #### L 100.0100 #### [facility] [address] [place], [address] Eosinophils/100 WBC (Bld) 4.2 % Normal 0-5 [facility] Comment on above: Performed By: #### L 100.0100 #### [facility] [address] [place], [address] Erythrocyte distribution width (RBC) [Ratio] 14.0 % Normal 11.6-14.6 [facility] Comment on above: Performed By: #### L 100.0100 #### [facility] [address] [place], [address] Hematocrit (Bld) [Volume fraction] 33.9 % Low 40-54 [facility] Comment on above: Performed By: #### L 100.0100 #### [facility] [address] [place], [address] Hemoglobin (Bld) [Mass/Vol] 11.0 g/dL Low 13.0-16.5 [facility] Comment on above: Performed By: #### L 100.0100 #### [facility] [address] [place], [address] IG% 0.200 Normal 0.0-0.9 [facility] Comment on above: Result Comment: IG% - Immature Granulocytes (promyelocytes, myelocytes and metamyelocytes) > 1% indicates that a LEFT SHIFT is Present. Performed By: #### L 100.0100 #### [facility] [address] [place], [address] Lymphocytes/100 WBC (Bld) 16.6 % Low 19-41 [facility] Comment on above: Performed By: #### L 100.0100 #### [facility] [address] [place], [address] MCH (RBC) [Entitic mass] 29.5 pg Normal 27.0-32.0 [facility] Comment on above: Performed By: #### L 100.0100 #### [facility] [address] [place], [address] MCHC (RBC) [Mass/Vol] 32.4 g/dL Normal 32-36 [facility] Comment on above: Performed By: #### L 100.0100 #### [facility] [address] [place], [address] MCV (RBC) [Entitic vol] 90.9 fL Normal 80-94 [facility] Comment on above: Performed By: #### L 100.0100 #### [facility] [address] [place], [address] Monocytes/100 WBC (Bld) 9.4 % Normal 0-10 [facility] Comment on above: Performed By: #### L 100.0100 #### [facility] [address] [place], [address] Neutrophils/100 WBC (Bld) 69.0 % Normal 47-70 [facility] Comment on above: Performed By: #### L 100.0100 #### [facility] [address] [place], [address] Nucleated RBC (Bld) [#/Vol] 0 10*3/uL Normal 0-5 [facility] Comment on above: Performed By: #### L 100.0100 #### [facility] [address] [place], [address] Platelet mean volume (Bld) [Entitic vol] 9.4 fL Normal 6.2-12.0 [facility] Comment on above: Performed By: #### L 100.0100 #### [facility] [address] [place], [address] Platelets (Bld) [#/Vol] 369 10*3/uL Normal 150-450 [facility] Comment on above: Performed By: #### L 100.0100 #### [facility] [address] [place], [address] RBC (Bld) [#/Vol] 3.73 10*6/uL Low 4.6-6.2 [facility] Comment on above: Performed By: #### L 100.0100 #### [facility] [address] [place], [address] RDW SD 46.3 fl High 35.1-43.9 [facility] Comment on above: Performed By: #### L 100.0100 #### [facility] [address] [place], [address] WBC (Bld) [#/Vol] 5.3 10*3/uL Normal 4.4-11.0 [facility] Comment on above: Performed By: #### L 100.0100 #### [facility] [address] [place], [address] Calculated very low density lipoprotein (VLDL) cholesterol measurementOrdered By: Sherice Avendano on 05-15-2024 Calculated very low density lipoprotein (VLDL) cholesterol measurement 16 mg/dL 5-40 [facility] VLDL Cholesterol 16 mg/dL 5-40 [facility] Carbon dioxide, total [Moles /volume] in Central venous bloodOrdered By: Sherice Avendano on 05-15-2024 CO2 [Moles/Vol] 22.5 mmol/L 21.0-32.0 [facility] Chloride assayOrdered By: Raul Avendano on 05-15-2024 Chloride [Moles/Vol] 102 mmol/L 98-108 [facility] Comprehensive Metabolic Prof ilon 05-15-2024 Albumin [Mass/Vol] 3.7 g/dL Normal 3.4-4.8 [facility] Comment on above: Performed By: #### L 100.0100, L501.4021, L500.2500 #### [facility] [address] [place], [address] Albumin/Globulin [Mass ratio] 1.2 {ratio} Normal 0.9-2.4 [facility] Comment on above: Performed By: #### L 100.0100, L501.4021, L500.2500 #### [facility] [address] [place], [address] ALK PHOS 160 U/L High 40-129 [facility] Comment on above: Performed By: #### L 100.0100, L501.4021, L500.2500 #### [facility] [address] [place], [address] ALT [Catalytic activity/Vol] 16 U/L Normal <=46 [facility] Comment on above: Performed By: #### L 100.0100, L501.4021, L500.2500 #### [facility] [address] [place], [address] AST [Catalytic activity/Vol] 16 U/L Normal <=37 [facility] Comment on above: Performed By: #### L 100.0100, L501.4021, L500.2500 #### [facility] [address] [place], [address] Bilirubin [Mass/Vol] 0.40 mg/dL Normal 0.00-1.30 [facility] Comment on above: Performed By: #### L 100.0100, L501.4021, L500.2500 #### [facility] [address] [place], [address] BUN/CRE 16.5 RATIO Normal 10-20 [facility] Comment on above: Performed By: #### L 100.0100, L501.4021, L500.2500 #### [facility] [address] [place], [address] Calcium [Mass/Vol] 8.8 mg/dL Normal 7.6-11.0 [facility] Comment on above: Performed By: #### L 100.0100, L501.4021, L500.2500 #### [facility] [address] [place], [address] Chloride [Moles/Vol] 102 mmol/L Normal 98-108 [facility] Comment on above: Performed By: #### L 100.0100, L501.4021, L500.2500 #### [facility] [address] [place], [address] CO2 [Moles/Vol] 22.5 mmol/L Normal 21.0-32.0 [facility] Comment on above: Performed By: #### L 100.0100, L501.4021, L500.2500 #### [facility] [address] [place], [address] Creatinine [Mass/Vol] 2.17 mg/dL High 0.70-1.20 [facility] Comment on above: Performed By: #### L 100.0100, L501.4021, L500.2500 #### [facility] [address] [place], [address] GAP 11 Normal 5-15 [facility] Comment on above: Performed By: #### L 100.0100, L501.4021, L500.2500 #### [facility] [address] [place], [address] GFR/1.73 sq M.predicted among non-blacks MDRD (S/P/Bld) [Vol rate/Area] 33 mL/min/{1.73_m2} Low >60 [facility] Comment on above: Result Comment: mL/m in/1.73m2 CKD-EPI Creatinine Equation (2020) Performed By: #### L 100.0100, L501.4021, L500.2500 #### [facility] [address] [place], [address] Globulin (S) [Mass/Vol] 3.2 g/dL Normal 2.2-4.2 [facility] Comment on above: Performed By: #### L 100.0100, L501.4021, L500.2500 #### [facility] [address] [place], [address] Glucose [Mass/Vol] 121 mg/dL High 70-99 [facility] Comment on above: Performed By: #### L 100.0100, L501.4021, L500.2500 #### [facility] [address] [place], [address] Potassium [Moles/Vol] 5.1 mmol/L Normal 3.3-5.1 [facility] Comment on above: Performed By: #### L 100.0100, L501.4021, L500.2500 #### [facility] [address] [place], [address] Sodium [Moles/Vol] 136 mmol/L Normal 133-145 [facility] Comment on above: Performed By: #### L 100.0100, L501.4021, L500.2500 #### [facility] [address] [place], [address] T PROT 6.9 g/dL Normal 5.9-8.4 [facility] Comment on above: Performed By: #### L 100.0100, L501.4021, L500.2500 #### [facility] [address] [place], [address] Urea nitrogen [Mass/Vol] 36 mg/dL High 4-19 [facility] Comment on above: Performed By: #### L 100.0100, L501.4021, L500.2500 #### [facility] [address] [place], [address] Creatinine Unsp time (U) [Ma ss/Vol]Ordered By: Sherice Avendano on 05-15-2024 Creatinine (U) [Mass/Vol] 16.90 mg/dL Low 39-259 [facility] Eosinophil percentageOrdered By: Sherice Avendano on 05-15-2024 Eosinophils/100 WBC (Bld) 4.2 % 0-5 [facility] Erythrocyte distribution wid th ratioOrdered By: Sherice Avendano on 05-15-2024 Erythrocyte distribution width (RBC) [Ratio] 14.0 % 11.6-14.6 [facility] Erythrocyte distribution wid th standard deviationOrdered By: Sherice Avendano on 05-15-2024 Erythrocyte distribution width (RBC) [Entitic vol] 46.3 fL High 35.1-43.9 [facility] Erythrocyte distribution width (RBC) [Ratio] 46.3 fl High 35.1-43.9 [facility] GFR/1.73 sq M.predicted chay g non-blacks MDRD (S/P/Bld) [Vol rate/Area]Ordered By: Sherice Avendano on 05-15-2024 Estimated GFR (MDRD) Non-Af Amer 33 Low >60 [facility] Comment on above: mL/min/1.73m2 CKD-EP I Creatinine Equation (2020) Glomerular filtration rate ( GFR) estimation/1.73 sq m using serum, plasma, or whole bOrdered By: Sherice Avendano on 05-15-2024 GFR/1.73 sq M.predicted among non-blacks MDRD (S/P/Bld) [Vol rate/Area] 33 mL/min/{1.73_m2} Low >60 [facility] Comment on above: mL/min/1.73m2 CKD-EP I Creatinine Equation (2020) Hematocrit Auto (Bld) [Volum e fraction]Ordered By: Sherice Avendano on 05-15-2024 Hematocrit (Bld) [Volume fraction] 33.9 % Low 40-54 [facility] Hemoglobin A1con 05-15-2024 HbA1c (Bld) [Mass fraction] 8.9 % Normal <=5.6 [facility] Comment on above: Performed By: #### L 100.0100, L501.4021, L500.2500 #### [facility] [address] [place] [address]. [place], [address] Hemoglobin A1c percentageOrd ered By: Sherice Avendano on 05-15-2024 HbA1c (Bld) [Mass fraction] 8.9 % >5.7 [facility] Hemoglobin measurementOrdere d By: Sherice Avendano on 05-15-2024 Hemoglobin (Bld) [Mass/Vol] 11.0 g/dL Low 13.0-16.5 [facility] Immature granulocytes/100 WB C Auto (Bld)Ordered By: Sherice Avendano on 05-15-2024 Immature granulocytes/100 WBC (Bld) 0.200 % 0.0-0.9 [facility] Comment on above: IG% - Immature Granu locytes (promyelocytes, myelocytes and metamyelocytes) > 1% indicates that a LEFT SHIFT is Present. L506.1001on 05-15-2024 Vitamin D 25-OH 29.1 ng/mL Low 30-100 [facility] Comment on above: Result Comment: Laisha min D Status Deficiency: <20 ng/mL (50nmol/L) Insufficiency: 20-30 ng/mL (50-75 nmol/L) Sufficiency: 30-100 ng/mL (75-250 nmol/L) Toxicity: >100 ng/mL (>250 nmol/L) Performed By: #### L 100.0100, L501.4021, L500.2500 #### [facility] [place], [address] LDL calc ser/plasOrdered By: Sherice Avendano on 05-15-2024 Cholesterol in LDL [Mass/Vol] 62 mg/dL [facility] Comment on above: Ezgsiidekn=229-101 m g/dL & Higher Dszi=852 mg/dL or greater LDL Cholesterol, Calculated 62 mg/dL [facility] Comment on above: Mlmhywvuic=168-444 m g/dL & Higher Avde=058 mg/dL or greater Laboratory - Chemistry and C hemistry - challengeOrdered By: Sherice Avendano on 05-15-2024 AST [Catalytic activity/Vol] 16 U/L <38 [facility] Lipid Profileon 05-15-2024 CHOL:HDL 2.36 Normal [facility] Comment on above: Performed By: #### L 100.0100, L501.4021, L500.2500 #### [facility] [address] [place], [address] Cholesterol [Mass/Vol] 135 mg/dL Normal <=200 [facility] Comment on above: Result Comment: Chol esterol level, Desirable <200 mg/dL Borderline high cholesterol 200-239 mg/dL High cholesterol >=240 mg/dL Recommendations of the NCEP Adult Treatment Panel for the following risk-cutoff thresholds for the [place] population. Performed By: #### L 100.0100, L501.4021, L500.2500 #### [facility] [address] [place], [address] Cholesterol in HDL [Mass/Vol] 57 mg/dL Normal [facility] Comment on above: Result Comment: [place]ela onal Cholesterol Education Program (NCEP) guidelines: <40 mg/dL: Low HDL-cholesterol (major risk factor for CHD) >= 60 mg/dL: High HDL-cholesterol (negative risk factor for CHD) HDL-cholesterol is affected by a number of factors, e.g. smoking, exercise, hormones, sex and age. Performed By: #### L 100.0100, L501.4021, L500.2500 #### [facility] [address] [place], [address] Cholesterol in LDL [Mass/Vol] 62 mg/dL Normal [facility] Comment on above: Result Comment: Bord hsuaku=817-238 mg/dL Higher Tfiy=940 mg/dL or greater Performed By: #### L 100.0100, L501.4021, L500.2500 #### [facility] [address] [place], [address] Cholesterol in VLDL [Mass/Vol] 16 mg/dL Normal 5-40 [facility] Comment on above: Performed By: #### L 100.0100, L501.4021, L500.2500 #### [facility] [address] [place], [address] Triglyceride [Mass/Vol] 80 mg/dL Normal [facility] Comment on above: Result Comment: The drugs N-Acetylcysteine and Metamizole may falsely depress this assay. Normal range: <150 mg/dL Borderline High: 150-199 mg/dL High: 200-499 mg/dL Very High: >500 mg/dL Performed By: #### L 100.0100, L501.4021, L500.2500 #### [facility] [address] [place], [address] Lymphocytes Auto (Unsp spec) [#/Vol]Ordered By: Sherice Avendano on 05-15-2024 Lymphocytes (Bld) [#/Vol] 0.88 10*3/uL 0.83-4.51 [facility] Lymphocytes/100 WBC Auto (Un sp spec)Ordered By: Sherice Avendano on 05-15-2024 Lymphocytes/100 WBC (Bld) 16.6 % Low 19-41 [facility] MCV (mean corpuscular volume ) determinationOrdered By: Sherice Avendano on 05-15-2024 MCV (RBC) [Entitic vol] 90.9 fL 80-94 [facility] Mean corpuscular hemoglobin (MCH) determinationOrdered By: Sherice Avendano on 05-15-2024 MCH (RBC) [Entitic mass] 29.5 pg 27.0-32.0 [facility] Mean corpuscular hemoglobin concentration (MCHC) determinationOrdered By: Sherice Avendano on 05-15-2024 MCHC (RBC) [Mass/Vol] 32.4 g/dL 32-36 [facility] Mean platelet volume determi nationOrdered By: Sherice Avendano on 05-15-2024 Platelet mean volume (Bld) [Entitic vol] 9.4 fL 6.2-12.0 [facility] Microalbumin/creat ratio urO rdered By: Sherice Avendano on 05-15-2024 Urine Microalbumin/Creatinine Ratio 27587.5 mg/g CRE [facility] Monocyte percentageOrdered B y: Sherice Avendano on 05-15-2024 Monocytes/100 WBC (Bld) 9.4 % 0-10 [facility] Neutrophil percentageOrdered By: Sherice Avendano on 05-15-2024 Neutrophils/100 WBC (Bld) 69.0 % 47-70 [facility] Nucleated red blood cell per centageOrdered By: Sherice Avendano on 05-15-2024 Nucleated RBC/100 WBC (Bld) [Ratio] 0 % 0-5 [facility] Platelet countOrdered By: Raul Avendano on 05-15-2024 Platelets (Bld) [#/Vol] 369 10*3/uL 150-450 [facility] Potassium (Unsp spec) [Mass/ Vol]Ordered By: Sherice Avendano on 05-15-2024 Potassium [Moles/Vol] 5.1 mmol/L 3.3-5.1 [facility] Potassium measurement (mass/ volume)Ordered By: Sherice Avendano on 05-15-2024 Potassium (Unsp spec) [Mass/Vol] 5.1 mmol/L 3.3-5.1 [facility] RBC Auto (Bld) [#/Vol]Ordere d By: Sherice Avendano on 05-15-2024 RBC (Bld) [#/Vol] 3.73 10*6/uL Low 4.6-6.2 [facility] Random urine creatinine tiera urement (mass/volume)Ordered By: Sherice Avendano on 05-15-2024 Creatinine Unsp time (U) [Mass/Vol] 16.90 mg/dL Low 39-259 [facility] Screening total cholesterol/ high density lipoprotein (HDL) cholesterol ratioOrdered By: Sherice Avendano on 05-15-2024 Cholesterol.total/Choles terol in HDL [Mass ratio] 2.36 {ratio} [facility] Serum creatinine measurement (mass/volume)Ordered By: Sherice Avendano on 05-15-2024 Creatinine [Mass/Vol] 2.17 mg/dL High 0.70-1.20 [facility] Serum globulin measurementOr dered By: Sherice Avendano on 05-15-2024 Globulin (S) [Mass/Vol] 3.2 g/dL 2.2-4.2 [facility] Serum glucose measurement (m ass/volume)Ordered By: Sherice Avendano on 05-15-2024 Glucose [Mass/Vol] 121 mg/dL High 70-99 [facility] Serum or plasma alanine bradford otransferase (ALT) measurementOrdered By: Sherice Avendano on 05-15-2024 ALT [Catalytic activity/Vol] 16 U/L <47 [facility] Serum or plasma albumin tiera urement (mass/volume)Ordered By: Sherice Avendano on 05-15-2024 Albumin [Mass/Vol] 3.7 g/dL 3.4-4.8 [facility] Serum or plasma albumin/glob ulin mass ratioOrdered By: Sherice Avendano 05-15-2024 Albumin/Globulin [Mass ratio] 1.2 {ratio} 0.9-2.4 [facility] Serum or plasma alkaline lashell sphatase measurementOrdered By: Sherice Avendano on 05-15-2024 ALP [Catalytic activity/Vol] 160 U/L High 40-129 [facility] Serum or plasma calcium tiera urement (mass/volume)Ordered By: Sherice Avendaon 05-15-2024 Calcium [Mass/Vol] 8.8 mg/dL 7.6-11.0 [facility] Serum or plasma cholesterol in HDL measurement (mass/volume)Ordered By: Sherice Avendano 05-15-2024 Cholesterol in HDL [Mass/Vol] 57 mg/dL >40 [facility] Comment on above: National Cholesterol Education Program (NCEP) guidelines:<40 mg/dL: Low HDL-cholesterol (major risk factor for CHD)>= 60 mg/dL: High HDL-cholesterol (negative risk factor for CHD)HDL-cholesterol is affected by a number of factors, e.g. smoking, exercise, hormones, sex and age. Serum or plasma cholesterol measurement (mass/volume)Ordered By: Sherice Avendano on 05-15-2024 Cholesterol [Mass/Vol] 135 mg/dL <201 [facility] Comment on above: Cholesterol level, D esirable <200 mg/dLBorderline high cholesterol 200-239 mg/dLHigh cholesterol >=240 mg/dLRecommendations of the NCEP Adult Treatment Panel for the following risk-cutoff thresholds for the [place] population. Serum or plasma urea nitroge n measurement (mass/volume)Ordered By: Sherice Avendano on 05-15-2024 Urea nitrogen [Mass/Vol] 36 mg/dL High 4-19 [facility] Sodium levelOrdered By: Luis A tranzioneros Avendano on 05-15-2024 Sodium [Moles/Vol] 136 mmol/L 133-145 [facility] TSH DL <= 0.005 mIU/L QnOrde red By: Sherice Avendano on 05-15-2024 Thyroid Stimulating Hormone (TSH) 2.570 uIU/mL 0.300-4.200 [facility] TSH Qn 2.570 uIU/mL 0.300-4.200 [facility] Thyroid Stim Hormone (TSH)on 05-15-2024 TSH 2.570 uIU/mL Normal 0.300-4.200 [facility] Comment on above: Performed By: #### L 100.0100, L501.4021, L500.2500 #### [facility] [address] [place], [place], [id number] Total proteinOrdered By: John Avendano on 05-15-2024 Protein [Mass/Vol] 6.9 g/dL 5.9-8.4 [facility] Triglycerides measurementOrd ered By: Sherice Avendano on 05-15-2024 Triglyceride [Mass/Vol] 80 mg/dL <199 [facility] Comment on above: The drugs N-Acetylcy steine and Metamizole may falsely depress this assay. Normal range: <150 mg/dLBorderline High: 150-199 mg/dLHigh: 200-499 mg/dLVery High: >500 mg/dL Urine albumin measurement wi th detection limit of 20 mg/L or less (mass/volume)Ordered By: Sherice Avendano on 05-15-2024 Albumin DL <= 20 mg/L (U) [Mass/Vol] 498.0 mg/L NO RANGE EST. [facility] Vitamin D, 25-hydroxyOrdered By: Sherice Avendano on 05-15-2024 Vitamin D 25-Hydroxy 29.1 ng/mL Low 30-100 [facility] Comment on above: Vitamin D StatusDefi ciency: <20 ng/mL (50nmol/L)Insufficiency: 20-30 ng/mL (50-75 nmol/L)Sufficiency: 30-100 ng/mL (75-250 nmol/L)Toxicity: >100 ng/mL (>250 nmol/L) White blood cell (WBC) count Ordered By: Sherice Avendano on 05-15-2024 WBC (Bld) [#/Vol] 5.3 10*3/uL 4.4-11.0 [facility] Internal Medicine Office Vis iton 05-07-2024 Internal Medicine Office Visit [facility] [address] [place] [address] [place] [address] OFFICE VISIT Date of Service: 05/07/24 MR#: [id number] Acct: [id number] Name: OLIVIER MENDOZA Rep #: [id number] : 1960 Provider: Dr. Sherice rock MD Age/Sex: 63/M Location: [facility] Status: Signed Intake Vital Signs 01/09/24 14:20 [...] M FU Chief Complaint: Follow-up chronic conditions Testing Tech Required: No Is patient in pain?: No Allergies latex Allergy (Unknown, Verified 05/07/24 13:25) Unknown Iurjrhi-CBM-OlW Reductase Inhibitor (Zzjaauh-Wmv-Hlx Reductase Inhibitor) Adverse Reaction (Severe, Verified 05/07/24 [...] you fallen in the past year?: No [facility] History (Updated 05/07/24 @ 16:28 [...] vaccine series completed Atherosclerotic heart disease of [place] coronary artery without angina pectoris Mixed hyperlipidemia [...] cancer Gra (more content not included)... Normal [facility] Stress Reporton 04-02-2024 Stress Report [facility] [address] [place] [address] MR#: [id number] Acct: [id number] Name: OLIVIER MENDOZA Rep #: [id number] : 1960 63 From: Pop Castellanos MD [...] Antoine Date Dictated: 04/02/24720 Date Transcribed: 04/02/24720 Retention Manager: CO Signed Normal [facility] Lower Ext Art Exam w/o Exerc bg 04-01-2024 Lower Ext Art Exam w/o Exercis [facility] [address] [place] [address] Lower Ext Art Exam w/o Exercis 04/01/24 0957 MR#: [id number] Acct: [id number] Name: OLIVIER MENDOZA Rep #: [id number] : 1960 63 From: Nicholas Teixeira MD [...] to testing and did not take medication. review assistant consulted and patient released home due to no symptoms, instructed to take meds and check BP when home. VL/Lower Ext Art Exam w/o Exercis Interpretation Summary Right LEROY 0.82, moderate arterial insufficiency. Doppler/PVR waveforms reveal distal SFA/popliteal disease. Left LEROY 1.07, normal. Doppler/PVR waveforms of the left leg mildly diminished at rest. __ Ordering Physician: Marlena Angel Referring Physician: Sherice Avendano Performed By: Olga Mays, T 04/01/24 1557 Date Nicholas Teixeira MD CC: Dr. Sherice Avendano MD; ANIL Antoine Date Dictated: 04/01/24 0957 Date Transcribed: 04/01/241556 Retention Manager: Signed Normal [facility] Cardiology Visit Reporton Cardiology Visit Report [facility] [address] [place] [address] OFFICE VISIT Date of Service: 03/11/24 MR#: [id number] Acct: [id number] Name: OLIVIER MENDOZA Rep #: [id number] : 1960 Provider: ANIL Padilla Age/Sex: 63/M Location: [facility] Status: Signed HPI HPI History of [...] 99 Intake Visit Reasons: 8 WK FU Testing Tech Required: No Is patient in pain?: No Allergies latex Allergy (Unknown, Verified 03/11/24 14:21) Unknown Jufeaff-KHK-AuG Reductase Inhibitor (Qgjmazb-Axo-Ytz Reductase Inhibitor) Adverse Reaction (Severe, Verified 03/11/24 [...] in the past year?: No [facility] Medical History (Updated 03/11/24 @ 14:45 by [...] vaccine series completed Atherosclerotic heart disease of [place] coronary artery without angina pectoris Mixed hyperlipidemia 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 Normal [facility] Basic Metabolic Profile (BMP )on 03-10-2024 BUN/CRE 12.6 RATIO Normal 12-21 [facility] Comment on above: Order Comment: DR DELIA YADAV AND DR TILLEY ORDERD BMPDR ROOF ORDERD A LIVER AND LIPIDDR TREVA ORDERD A SPOT URIN Performed By: #### L 100.0100, L501.4021, L500.2500 #### [facility] [address] [place], [address] CA,Total 8.1 mg/dL Low 8.5-10.1 [facility] Comment on above: Order Comment: DR DELIA YADAV AND DR TILLEY ORDERD BMPDR ROOF ORDERD A LIVER AND LIPIDDR TREVA ORDERD A SPOT URIN Performed By: #### L 100.0100, L501.4021, L500.2500 #### [facility] [address] [place], [address] Chloride [Moles/Vol] 105 mmol/L Normal 98-107 [facility] Comment on above: Order Comment: DR DEILA YADAV AND DR TILLEY ORDERD BMPDR ROOF ORDERD A LIVER AND LIPIDDR TREVA ORDERD A SPOT URIN Performed By: #### L 100.0100, L501.4021, L500.2500 #### [facility] [address] [place], [address] CO2 [Moles/Vol] 28.0 mmol/L Normal 21.0-32.0 [facility] Comment on above: Order Comment: DR DELIA YADAV AND DR TILLEY ORDERD BMPDR ROOF ORDERD A LIVER AND LIPIDDR TREVA ORDERD A SPOT URIN Performed By: #### L 100.0100, L501.4021, L500.2500 #### [facility] [address] [place], [address] Creatinine [Mass/Vol] 2.23 mg/dL High 0.70-1.30 [facility] Comment on above: Order Comment: DR DELIA YADAV AND DR TILLEY ORDERD BMPDR ROOF ORDERD A LIVER AND LIPIDDR TREVA ORDERD A SPOT URIN Result Comment: The validity of the calculated GFR GFRAA in patients over 70 years has not been determined. Clinical correlation is essential. Performed By: #### L 100.0100, L501.4021, L500.2500 #### [facility] [address] [place], [address] EST GFR - AA 38 mL/min Low >60 [facility] Comment on above: Order Comment: DR DELIA YADAV AND DR TILLEY ORDERD BMPDR ROOF ORDERD A LIVER AND LIPIDDR TREVA ORDERD A SPOT URIN Result Comment: Afri can Singaporean GFR Calc Performed By: #### L 100.0100, L501.4021, L500.2500 #### [facility] [address] [place], [address] GAP 3 Low 5-15 [facility] Comment on above: Order Comment: DR DELIA YADAV AND DR TILLEY ORDERD BMPDR ROOF ORDERD A LIVER AND LIPIDDR TREVA ORDERD A SPOT URIN Performed By: #### L 100.0100, L501.4021, L500.2500 #### [facility] [address] [place], [address] GFR/1.73 sq M.predicted among non-blacks MDRD (S/P/Bld) [Vol rate/Area] 32 mL/min/{1.73_m2} Low >60 [facility] Comment on above: Order Comment: DR DELIA YADAV AND DR TILLEY ORDERD BMPDR ROOF ORDERD A LIVER AND LIPIDDR TREVA ORDERD A SPOT URIN Result Comment: Non- GFR Calc Performed By: #### L 100.0100, L501.4021, L500.2500 #### [facility] [address] [place], [address] Glucose [Mass/Vol] 149 mg/dL High 74-106 [facility] Comment on above: Order Comment: DR DELIA YADAV AND DR TILLEY ORDERD BMPDR ROOF ORDERD A LIVER AND LIPIDDR TREVA ORDERD A SPOT URIN Result Comment: Fast ing Glucose result greater than or equal to 126 mg/dL suggests DIABETES MELLITUS per A.D.A. criteria. Performed By: #### L 100.0100, L501.4021, L500.2500 #### [facility] [address] [place], [address] Potassium [Moles/Vol] 4.4 mmol/L Normal 3.5-5.1 [facility] Comment on above: Order Comment: DR DELIA YADAV AND DR TILLEY ORDERD BMPDR ROOF ORDERD A LIVER AND LIPIDDR TREVA ORDERD A SPOT URIN Performed By: #### L 100.0100, L501.4021, L500.2500 #### [facility] [address] [place], [address] Sodium [Moles/Vol] 137 mmol/L Normal 136-145 [facility] Comment on above: Order Comment: DR DELIA YADAV AND DR TILLEY ORDERD BMPDR ROOF ORDERD A LIVER AND LIPIDDR TREVA ORDERD A SPOT URIN Performed By: #### L 100.0100, L501.4021, L500.2500 #### [facility] [address] [place], [address] Urea nitrogen [Mass/Vol] 28 mg/dL High 7-18 [facility] Comment on above: Order Comment: DR DELIA YADAV AND DR TILLEY ORDERD BMPDR ROOF ORDERD A LIVER AND LIPIDDR TREVA ORDERD A SPOT URIN Performed By: #### L 100.0100, L501.4021, L500.2500 #### [facility] [address] [place], [address] Bilirubin directOrdered By: Gennaro Fuentes on 03-10-2024 Bilirubin.direct [Mass/Vol] 0.12 mg/dL 0.00-0.30 [facility] Bilirubin, totalOrdered By: Gennaro Fuentes on 03-10-2024 Bilirubin [Mass/Vol] 0.50 mg/dL 0.20-1.00 [facility] Comment on above: For patients on eltr ombopag therapy, use of Dimension Marsing TBIL is not recommended. Blood urea nitrogen (BUN)/cr eatinine ratioOrdered By: Gennaro Fuentes on 03-10-2024 Urea nitrogen/Creatinine [Mass ratio] 12.6 mg/mg 10-20 [facility] Carbon dioxide measurementOr dered By: Gennaro Fuentes on 03-10-2024 CO2 [Moles/Vol] 28.0 mmol/L 21.0-32.0 [facility] Chloride measurementOrdered By: Gennaro Fuentes on 03-10-2024 Chloride [Moles/Vol] 105 mmol/L 98-107 [facility] Estimated glomerular filtrat ion rate (GFR) AmericanOrdered By: Gennaro Fuentes on 03-10-2024 Estimated GFR (MDRD) Amer 38 mL/min Low >60 [facility] Comment on above: GFR Calc Glomerular filtration rate ( GFR) estimationOrdered By: Gennaro Fuentes on 03-10-2024 Estimated GFR (MDRD) Non-Af Amer 32 mL/min Low >60 [facility] Comment on above: Non- GFR Calc Glucose measurementOrdered B y: Gennaro Fuentes on 03-10-2024 Glucose [Mass/Vol] 149 mg/dL High 74-106 [facility] Comment on above: Fasting Glucose resu lt greater than or equal to 126 mg/dL suggests DIABETES MELLITUS per A.D.A. criteria. High density lipoprotein (HD L) measurementOrdered By: Gennaor Fuentes on 03-10-2024 Cholesterol in HDL [Mass/Vol] 69 mg/dL >40 [facility] Comment on above: The drugs N-Acetylcy steine and Metamizole may falsely depress this assay. Reference Range HDL <40 mg/dL Low HDL Cholesterol HDL >or= 60 mg/dL High HDL Cholesterol Laboratory - Chemistry and C hemistry - challengeOrdered By: Gennaro Fuentes on 03-10-2024 AST [Catalytic activity/Vol] 13 U/L Low 15-37 [facility] Lipid Profileon 03-10-2024 Cholesterol [Mass/Vol] 202 mg/dL High 200 [facility] Comment on above: Order Comment: DR DELIA YADAV AND DR TILLEY ORDERD BMPDR GERMAN ORDERD A LIVER AND LIPIDDR TREVA ORDERD A SPOT URIN Result Comment: <200 mg/dL Desirable 200-240 mg/dL Borderline >240 mg/dL High Risk Performed By: #### L 100.0100, L501.4021, L500.2500 #### [facility] [address] [place], [address] Cholesterol in HDL [Mass/Vol] 69 mg/dL Normal [facility] Comment on above: Order Comment: DR DELIA YADAV AND DR TILLEY ORDERD BMPDR ROOF ORDERD A LIVER AND LIPIDDR TREVA ORDERD A SPOT URIN Result Comment: The drugs N-Acetylcysteine and Metamizole may falsely depress this assay. Reference Range HDL <40 mg/dL Low HDL Cholesterol HDL >or= 60 mg/dL High HDL Cholesterol Performed By: #### L 100.0100, L501.4021, L500.2500 #### [facility] [address] [place], [address] Cholesterol in LDL [Mass/Vol] 113 mg/dL Normal 0-130 [facility] Comment on above: Order Comment: DR DELIA YADAV AND DR TILLEY ORDERD BMPDR ROOF ORDERD A LIVER AND LIPIDDR TREVA ORDERD A SPOT URIN Performed By: #### L 100.0100, L501.4021, L500.2500 #### [facility] [address] [place], [address] Cholesterol in VLDL [Mass/Vol] 20 mg/dL Normal 5-40 [facility] Comment on above: Order Comment: DR DELIA YADAV AND DR TILLEY ORDERD BMPDR ROOF ORDERD A LIVER AND LIPIDDR TREVA ORDERD A SPOT URIN Performed By: #### L 100.0100, L501.4021, L500.2500 #### [facility] [address] [place], [address] Triglyceride [Mass/Vol] 99 mg/dL Normal [facility] Comment on above: Order Comment: DR [...] By: #### L 100.0100, L501.4021, L500.2500 #### [facility] [address] [place], [address] HDL Normal [facility] Comment on above: Result Comment: NOT NEEDED' The drugs N-Acetylcysteine and Metamizole may falsely depress this assay. Performed By: #### L 100.0100, L501.4021, L500.2500 #### [facility] [address] [place], [address] TRIG Normal [facility] Comment on above: Result Comment: NOT NEEDED' The drugs N-Acetylcysteine and Metamizole may falsely depress this assay. Performed By: #### L 100.0100, L501.4021, L500.2500 #### [facility] [address] [place], [address] CHOL Normal 200 [facility] Comment on above: Result Comment: NOT NEEDED' Performed By: #### L 100.0100, L501.4021, L500.2500 #### [facility] [address] [place], [address] LDL Normal 0-130 [facility] Comment on above: Result Comment: NOT NEEDED' Performed By: #### L 100.0100, L501.4021, L500.2500 #### [facility] [address] [place], [address] VLDL Normal 5-40 [facility] Comment on above: Result Comment: NOT NEEDED' Performed By: #### L 100.0100, L501.4021, L500.2500 #### [facility] [address] [place], [address] Liver Profileon 03-10-2024 Albumin [Mass/Vol] 2.8 g/dL Low 3.2-5.0 [facility] Comment on above: Order Comment: DR DELIA YADAV AND DR TILLEY ORDERD BMPDR ROOF ORDERD A LIVER AND LIPIDDR TREVA ORDERD A SPOT URIN Performed By: #### L 100.0100, L501.4021, L500.2500 #### [facility] [address] [place], [address] ALK P 203 U/L High 45-117 [facility] Comment on above: Order Comment: DR DELIA YADAV AND DR TILLEY ORDERD BMPDR ROOF ORDERD A LIVER AND LIPIDDR TREVA ORDERD A SPOT URIN Performed By: #### L 100.0100, L501.4021, L500.2500 #### [facility] [address] [place], [address] ALT [Catalytic activity/Vol] 24 U/L Normal 16-61 [facility] Comment on above: Order Comment: DR DELIA YADAV AND DR TILLEY ORDERD BMPDR ROOF ORDERD A LIVER AND LIPIDDR TREVA ORDERD A SPOT URIN Performed By: #### L 100.0100, L501.4021, L500.2500 #### [facility] [address] [place], [address] AST [Catalytic activity/Vol] 13 U/L Low 15-37 [facility] Comment on above: Order Comment: DR DELIA TILLEY ORDERD BMPDR ROOF ORDERD A LIVER AND LIPIDDR TREVA ORDERD A SPOT URIN Performed By: #### L 100.0100, L501.4021, L500.2500 #### [facility] [address] [place], [address] Bilirubin [Mass/Vol] 0.50 mg/dL Normal 0.20-1.00 [facility] Comment on above: Order Comment: DR DELIA YADAV AND DR TILLEY ORDERD BMPDR ROOF ORDERD A LIVER AND LIPIDDR TREVA ORDERD A SPOT URIN Result Comment: For patients on eltrombopag therapy, use of Dimension Mars[place] TBIL is not recommended. Performed By: #### L 100.0100, L501.4021, L500.2500 #### [facility] [address] [place], [address] Bilirubin.direct [Mass/Vol] 0.12 mg/dL Normal 0.00-0.30 [facility] Comment on above: Order Comment: DR DELIA YADAV AND DR TILLEY ORDERD BMPDR ROOF ORDERD A LIVER AND LIPIDDR TREVA ORDERD A SPOT URIN Performed By: #### L 100.0100, L501.4021, L500.2500 #### [facility] [address] [place], [address] Globulin (S) [Mass/Vol] 3.7 g/dL Normal 2.2-4.2 [facility] Comment on above: Order Comment: DR DELIA YADAV AND DR TILLEY ORDERD BMPDR ROOF ORDERD A LIVER AND LIPIDDR TREVA ORDERD A SPOT URIN Performed By: #### L 100.0100, L501.4021, L500.2500 #### [facility] [address] [place], [address] T PROT 6.5 g/dL Normal 6.4-8.2 [facility] Comment on above: Order Comment: DR DELIA YADAV AND DR TILLEY ORDERD BMPDR ROOF ORDERD A LIVER AND LIPIDDR TREVA ORDERD A SPOT URIN Performed By: #### L 100.0100, L501.4021, L500.2500 #### [facility] [address] [place], [address] ALB Normal 3.2-5.0 [facility] Comment on above: Result Comment: NOT NEEDED' Performed By: #### L 100.0100, L501.4021, L500.2500 #### [facility] [address] [place], [address] ALK P Normal 45-117 [facility] Comment on above: Result Comment: NOT NEEDED' Performed By: #### L 100.0100, L501.4021, L500.2500 #### [facility] [address] [place], [address] ALT Normal 16-61 [facility] Comment on above: Result Comment: NOT NEEDED' Performed By: #### L 100.0100, L501.4021, L500.2500 #### [facility] [address] [place], [address] AST Normal 15-37 [facility] Comment on above: Result Comment: NOT NEEDED' Performed By: #### L 100.0100, L501.4021, L500.2500 #### [facility] [address] [place], [address] D BILI Normal 0.00-0.30 [facility] Comment on above: Result Comment: NOT NEEDED' Performed By: #### L 100.0100, L501.4021, L500.2500 #### [facility] [address] [place], [address] T BILI Normal 0.20-1.00 [facility] Comment on above: Result Comment: NOT NEEDED' Performed By: #### L 100.0100, L501.4021, L500.2500 #### [facility] [address] [place], [address] T PROT Normal 6.4-8.2 [facility] Comment on above: Result Comment: NOT NEEDED' Performed By: #### L 100.0100, L501.4021, L500.2500 #### [facility] [address] [place], [address] Low density lipoprotein (LDL ) cholesterol measurementOrdered By: Gennaro Fuentes on 03-10-2024 Cholesterol in LDL [Mass/Vol] 113 mg/dL 0-130 [facility] Potassium measurementOrdered By: Gennaro Fuentes on 03-10-2024 Potassium [Moles/Vol] 4.4 mmol/L 3.5-5.1 [facility] Protein+Creatinine Ratio,Uri neon 03-10-2024 PROT:CRE RATIO 3472 mg/g CRE High 0-200 [facility] Comment on above: Performed By: #### L 100.0100, L501.4021, L500.2500 #### [facility] [address] [place], [address] Protein (U) [Mass/Vol] 224.3 mg/dL High <11.9 [facility] Comment on above: Performed By: #### L 100.0100, L501.4021, L500.2500 #### [facility] [address] [place], [address] UR CREAT 64.60 mg/dL Normal NO RANGE EST. [facility] Comment on above: Performed By: #### L 100.0100, L501.4021, L500.2500 #### [facility] [address] [place], [address] Protein/Creatinine (U) [Mass ratio]Ordered By: Gennaro Fuentes on 03-10-2024 Urine Protein/Creatinine Ratio 3472 mg/g CRE High 0-200 [facility] Random urine protein measure mentOrdered By: Gennaro Fuentes on 03-10-2024 Protein (U) [Mass/Vol] 224.3 mg/dL High 0.0-11.8 [facility] Serum anion gap measurementO rdered By: Gennaro Fuentes on 03-10-2024 Anion gap [Moles/Vol] 3 mmol/L Low 5-15 [facility] Serum globulin measurementOr dered By: Gennaro Fuentes on 03-10-2024 Globulin (S) [Mass/Vol] 3.7 g/dL 2.2-4.2 [facility] Serum or plasma alanine bradford otransferase (ALT) measurementOrdered By: Gennaro Fuentes on 03-10-2024 ALT [Catalytic activity/Vol] 24 U/L 16-61 [facility] Serum or plasma albumin tiera urement (mass/volume)Ordered By: Gennaro Fuentes on 03-10-2024 Albumin [Mass/Vol] 2.8 g/dL Low 3.2-5.0 [facility] Serum or plasma alkaline lashell sphatase measurementOrdered By: Gennaro Fuentes on 03-10-2024 ALP [Catalytic activity/Vol] 203 U/L High 45-117 [facility] Serum or plasma calcium tiera urement (mass/volume)Ordered By: Gennaro Fuentes on 03-10-2024 Calcium [Mass/Vol] 8.1 mg/dL Low 8.5-10.1 [facility] Serum or plasma cholesterol measurement (mass/volume)Ordered By: Gennaro Fuentes on 03-10-2024 Cholesterol [Mass/Vol] 202 mg/dL High <200 [facility] Comment on above: <200 mg/dL Desirable 200-240 mg/dL Borderline >240 mg/dL High Risk Serum or plasma creatinine m easurement (mass/volume)Ordered By: Gennaro Fuentes on 03-10-2024 Creatinine [Mass/Vol] 2.23 mg/dL High 0.70-1.30 [facility] Comment on above: The validity of the calculated GFR & GFRAA in patients over 70 years has not been determined. Clinical correlation is essential. Serum or plasma urea nitroge n measurement (mass/volume)Ordered By: Gennaro Fuentes on 03-10-2024 Urea nitrogen [Mass/Vol] 28 mg/dL High 7-18 [facility] Sodium levelOrdered By: Amparo Fuentes on 03-10-2024 Sodium [Moles/Vol] 137 mmol/L 136-145 [facility] Total proteinOrdered By: Sean Fuentes on 03-10-2024 Protein [Mass/Vol] 6.5 g/dL 6.4-8.2 [facility] Triglycerides measurementOrd ered By: Gennaro Fuentes on 03-10-2024 Triglyceride [Mass/Vol] 99 mg/dL <199 [facility] Comment on above: The drugs N-Acetylcy steine and Metamizole may falsely depress this assay.Serum Triglycerides Reference Interval Normal <150 mg/dL Borderline high 150 - 199 mg/dL High 200 - 499 mg/dL Very High > or = 500 mg/dL Urine creatinine measurement (mass/volume)Ordered By: Gennaro Fuentes on 03-10-2024 Creatinine (U) [Mass/Vol] 64.60 mg/dL NO RANGE EST. [facility] Very low density lipoprotein (VLDL) cholesterol measurementOrdered By: Gennaro Fuentes on 03-10-2024 VLDL Cholesterol 20 mg/dL 5-40 [facility] Chest without Contraston Chest without Contrast [facility] [place] [address] [place] [address] Chest without Contrast MR#: [id number] Acct: [id number] Name: OLIVIER MENDOZA Rep #: [id number] : 1960 M 63 From: Timi Nicole MD PCP: Dr. Sherice Avendano MD Status: REG CLI Study: Chest without Contrast Date of Exam: 02/24/24 Exam# [id number] Ordering Dr: Sherice Avendano MD -[id number] INDICATION: Abnormal Chest X-ray EXAMINATION: CT [...] EST , CC: Dr. Sherice Avendano MD Retention Manager: Signed Normal [facility] Echo Completeon 02-24-2024 Echo Complete [facility] [place] [address] [address] Echo Complete 02/24/24 0845 MR#: [id number] Acct: [id number] Name: OLIVIER MENDOZA Rep #: [id number] : 1960 63 From: Pop Castellanos MD Attending Dr: Gennaro Fuentes CLINICAL DATA MANAGER-C Status: JULIETTE PEDRO Ordering Dr: Chacorta Porter NP CLINICAL DATA MANAGER-C Date: 02/24/24 Location: [place] Sex: M C Admitted: Reason For Study: [...] Porter Referring Physician: Sherice Avendano Performed By: Natsaha Pratt RDCS 02/24/24 1010 Date Pop Castellanos MD CC: THERESAC Chacorta Porter; YORDAN-C Gennaro Fuentes; Dr. Sherice Avendano MD Date Dictated: 02/24/24 0845 Date Transcribed: 02/24/24 1010 Retention Manager: Signed Normal [facility] Renal Artery Duplex Ultrasou ndon 02-24-2024 Renal Artery Duplex Ultrasound [facility] [address] [place] [address] Renal Artery Duplex Ultrasound 02/24/2414 MR#: [id number] Acct: [id number] Name: OLIVIER MENDOZA Rep #: [id number] : 1960 63 From: Nicholas Teixeira MD Attending Dr: SHAUN Oliveira Status: JULIETTE PEDRO Ordering Dr: Gennaro Fuentes NP CLINICAL DATA MANAGERKarelC Date: 02/24/24 Location: CT Sex: M C [...] Preston 02/24/241642 Date Nicholas Teixeira MD CC: CLINICAL DATA MANAGER-C Gennaro Fuentes; Dr. Sherice Avendano MD Date Dictated: 02/24/24813 Date Transcribed: 02/24/241642 Retention Manager: Iris Senior [facility] 36on 02-12-2024 36 Patient called and LM to cancel his appt for today (02/12/24) and to reschedule to March if possible. Reached out to pt, call goes straight byron . [facility] to reschedule. Normal [facility] Cardiology Visit Reporton Cardiology Visit Report [facility] [address] [place] [address] OFFICE VISIT Date of Service: 01/16/24 MR#: [id number] Acct: [id number] Name: OLIVIER MENDOZA Rep #: [id number] : 1960 Provider: SHAUN hinojosa Age/Sex: 63/M Location: [facility] Status: Signed HPI HPI History of [...] 100 Intake Visit Reasons: See Clinical Note Testing Tech Required: No Is patient in pain?: No Allergies latex Allergy (Unknown, Verified 01/16/24 14:21) Unknown Yjfewzi-UNG-AdV Reductase Inhibitor (Rnefamu-Mxu-Xsn Reductase Inhibitor) Adverse Reaction (Severe, Verified 01/16/24 [...] the past year?: No PFSH Medical History (Reviewed 01/16/24 @ 16:27 by Gennaro Fuentes CLINICAL DATA MANAGER, CLINICAL DATA MANAGER-C) Hilar density Abnormal chest xray Preop cardiovascular exam CKD (chronic kidney disease), stage III GERD (gastroesophageal reflux disease) Chest congestion Preoperative evaluation to rule out surgical contraindication Sinusitis Skin cyst Fatigue Left elbow pain Health care maintenance Proteinuria Nephropathy Bilateral lower extremity edema COVID-19 vaccine series completed Atherosclerotic heart disease of [place] coronary artery without angina pectoris Mixed hyperlipidemia Neuropathy due to type (more content not included)... Normal [facility] 12 Lead EKGon 01-09-2024 12 Lead EKG [facility] Cardiovascular Services [address] [place] [address] 12 Lead EKG 01/09/24 1932 MR#: [id number] Acct: [id number] Name: OLIVIER MENDOZA Rep #: [id number] : 1960 63 From: Pop Castellanos MD [...] Abnormal ECG Confirmed by EMANUEL WERNER, POP ([id number]), supervising film or videotape editor RIAN SOLORIO ([id number]) on 01/13/2024 10:12:46 AM Referred By: Denezl Carlin Confirmed By: POP CASTELLANOS MD 01/13/24 1012 Date Pop Castellanos MD CC: Dr. Sherice Avendano MD; Dr. Denzel Carlin, DO Signed Normal [facility] BNP,B-Type NATRIURETIC PEPTI [place] 01-09-2024 Natriuretic peptide B (Bld) [Mass/Vol] 472.9 pg/mL High 0-100 [facility] Comment on above: Performed By: #### L 501.5425, L500.2500, L100.0100, L503.6620 #### [facility] [address] [place], [address] Basic Metabolic Profile (BMP )on 01-09-2024 BUN/CRE 12.3 RATIO Normal 10-20 [facility] Comment on above: Order Comment: 1 Y Performed By: #### L 501.5425, L500.2500, L100.0100, L503.6620 #### [facility] [address] [place], [address] CA,Total 8.3 mg/dL Low 8.5-10.1 [facility] Comment on above: Order Comment: 1 Y Performed By: #### L 501.5425, L500.2500, L100.0100, L503.6620 #### [facility] [address] [place], [address] Chloride [Moles/Vol] 106 mmol/L Normal 98-107 [facility] Comment on above: Order Comment: 1 Y Performed By: #### L 501.5425, L500.2500, L100.0100, L503.6620 #### [facility] [address] [place], [address] CO2 [Moles/Vol] 23.0 mmol/L Normal 21.0-32.0 [facility] Comment on above: Order Comment: 1 Y Performed By: #### L 501.5425, L500.2500, L100.0100, L503.6620 #### [facility] [address] [place], [address] Creatinine [Mass/Vol] 1.87 mg/dL High 0.70-1.30 [facility] Comment on above: Order Comment: 1 Y Result Comment: The validity of the calculated GFR GFRAA in patients over 70 years has not been determined. Clinical correlation is essential. Performed By: #### L 501.5425, L500.2500, L100.0100, L503.6620 #### [facility] [address] [place], [address] ECRCL 40.01 ml/min Normal [facility] Comment on above: Order Comment: 1 Y Performed By: #### L 501.5425, L500.2500, L100.0100, L503.6620 #### [facility] [address] [place], [address] EST GFR - AA 47 mL/min Low >60 [facility] Comment on above: Order Comment: 1 Y Result Comment: Afri can Singaporean GFR Calc Performed By: #### L 501.5425, L500.2500, L100.0100, L503.6620 #### [facility] [address] [place], [address] GAP 7 Normal 5-15 [facility] Comment on above: Order Comment: 1 Y Performed By: #### L 501.5425, L500.2500, L100.0100, L503.6620 #### [facility] [address] [place], [address] GFR/1.73 sq M.predicted among non-blacks MDRD (S/P/Bld) [Vol rate/Area] 39 mL/min/{1.73_m2} Low >60 [facility] Comment on above: Order Comment: 1 Y Result Comment: Non- GFR Calc Performed By: #### L 501.5425, L500.2500, L100.0100, L503.6620 #### [facility] [address] [place], [address] Glucose [Mass/Vol] 319 mg/dL High 74-106 [facility] Comment on above: Order Comment: 1 Y Result Comment: Gluc ose result greater than or equal to 200 mg/dL suggests DIABETES MELLITUS per A.D.A. criteria. Performed By: #### L 501.5425, L500.2500, L100.0100, L503.6620 #### [facility] [address] [place], [address] Potassium [Moles/Vol] 4.8 mmol/L Normal 3.5-5.1 [facility] Comment on above: Order Comment: 1 Y Performed By: #### L 501.5425, L500.2500, L100.0100, L503.6620 #### [facility] [address] [place], [address] Sodium [Moles/Vol] 135 mmol/L Low 136-145 [facility] Comment on above: Order Comment: 1 Y Performed By: #### L 501.5425, L500.2500, L100.0100, L503.6620 #### [facility] [address] [place], [address] Urea nitrogen [Mass/Vol] 23 mg/dL High 7-18 [facility] Comment on above: Order Comment: 1 Y Performed By: #### L 501.5425, L500.2500, L100.0100, L503.6620 #### [facility] [address] [place], [address] BUN/CRE 12.5 RATIO Normal 10-20 [facility] Comment on above: Performed By: #### L 100.0100, L501.4021, L500.2500 #### [facility] [address] [place], [address] CA,Total 8.2 mg/dL Low 8.5-10.1 [facility] Comment on above: Performed By: #### L 100.0100, L501.4021, L500.2500 #### [facility] [address] [place], [address] Chloride [Moles/Vol] 106 mmol/L Normal 98-107 [facility] Comment on above: Performed By: #### L 100.0100, L501.4021, L500.2500 #### [facility] [address] [place], [address] CO2 [Moles/Vol] 26.0 mmol/L Normal 21.0-32.0 [facility] Comment on above: Performed By: #### L 100.0100, L501.4021, L500.2500 #### [facility] [address] [place], [address] Creatinine [Mass/Vol] 2.00 mg/dL High 0.70-1.30 [facility] Comment on above: Result Comment: The validity of the calculated GFR GFRAA in patients over 70 years has not been determined. Clinical correlation is essential. Performed By: #### L 100.0100, L501.4021, L500.2500 #### [facility] [address] [place], [address] EST GFR - AA 43 mL/min Low >60 [facility] Comment on above: Result Comment: Afri can [place]an GFR Calc Performed By: #### L 100.0100, L501.4021, L500.2500 #### [facility] [address] [place], [address] GAP 3 Low 5-15 [facility] Comment on above: Performed By: #### L 100.0100, L501.4021, L500.2500 #### [facility] [address] [place], [address] GFR/1.73 sq M.predicted among non-blacks MDRD (S/P/Bld) [Vol rate/Area] 36 mL/min/{1.73_m2} Low >60 [facility] Comment on above: Result Comment: Non- GFR Calc Performed By: #### L 100.0100, L501.4021, L500.2500 #### [facility] [address] [place], [address] Glucose [Mass/Vol] 339 mg/dL High 74-106 [facility] Comment on above: Result Comment: Gluc ose result greater than or equal to 200 mg/dL suggests DIABETES MELLITUS per A.D.A. criteria. Performed By: #### L 100.0100, L501.4021, L500.2500 #### [facility] [address] [place], [address] Potassium [Moles/Vol] 6.2 mmol/L Invalid Interpretation Code 3.5-5.1 [facility] Comment on above: Result Comment: Crit ical Result(s) Called at: 17:09:39 01/09/2024 by: MAGUI WAITE TO DR. AVENDANO. Results read back by same. Performed By: #### L 100.0100, L501.4021, L500.2500 #### [facility] [address] [place], [address] Sodium [Moles/Vol] 134 mmol/L Low 136-145 [facility] Comment on above: Performed By: #### L 100.0100, L501.4021, L500.2500 #### [facility] [address] [place], [address] Urea nitrogen [Mass/Vol] 25 mg/dL High 7-18 [facility] Comment on above: Performed By: #### L 100.0100, L501.4021, L500.2500 #### [facility] [address] [place], [address] CBC W/Diff, Automatedon 11-0 7-2023 Absolute Lymph 1.65 X10 3/uL Normal 0.83-4.51 [facility] Comment on above: Performed By: #### L 501.5425, L500.2500, L100.0100, L503.6620 #### [facility] [address] [place], [address] Absolute Neut 5.7 X10 3/uL Normal 2.0-7.7 [facility] Comment on above: Performed By: #### L 501.5425, L500.2500, L100.0100, L503.6620 #### [facility] [address] [place], [address] Basophils/100 WBC (Bld) 0.4 % Normal 0-1 [facility] Comment on above: Performed By: #### L 501.5425, L500.2500, L100.0100, L503.6620 #### [facility] [address] [place], [address] Eosinophils/100 WBC (Bld) 3.7 % Normal 0-5 [facility] Comment on above: Performed By: #### L 501.5425, L500.2500, L100.0100, L503.6620 #### [facility] [address] [place], [address] Erythrocyte distribution width (RBC) [Ratio] 14.3 % Normal 11.6-14.6 [facility] Comment on above: Performed By: #### L 501.5425, L500.2500, L100.0100, L503.6620 #### [facility] [address] [place], [address] Hematocrit (Bld) [Volume fraction] 33.3 % Low 40-54 [facility] Comment on above: Performed By: #### L 501.5425, L500.2500, L100.0100, L503.6620 #### [facility] [address] [place], [address] Hemoglobin (Bld) [Mass/Vol] 11.0 g/dL Low 13.0-16.5 [facility] Comment on above: Performed By: #### L 501.5425, L500.2500, L100.0100, L503.6620 #### [facility] [address] [place], [address] IG% 0.500 Normal 0.0-0.9 [facility] Comment on above: Result Comment: IG% - Immature Granulocytes (promyelocytes, myelocytes and metamyelocytes) > 1% indicates that a LEFT SHIFT is Present. Performed By: #### L 501.5425, L500.2500, L100.0100, L503.6620 #### [facility] [address] [place], [address] Lymphocytes/100 WBC (Bld) 19.6 % Normal 19-41 [facility] Comment on above: Performed By: #### L 501.5425, L500.2500, L100.0100, L503.6620 #### [facility] [address] [place], [address] MCH (RBC) [Entitic mass] 30.1 pg Normal 27.0-32.0 [facility] Comment on above: Performed By: #### L 501.5425, L500.2500, L100.0100, L503.6620 #### [facility] [address] [place], [address] MCHC (RBC) [Mass/Vol] 33.0 g/dL Normal 32-36 [facility] Comment on above: Performed By: #### L 501.5425, L500.2500, L100.0100, L503.6620 #### [facility] [address] [place], [address] MCV (RBC) [Entitic vol] 91.2 fL Normal 80-94 [facility] Comment on above: Performed By: #### L 501.5425, L500.2500, L100.0100, L503.6620 #### [facility] [address] [place], [address] Monocytes/100 WBC (Bld) 8.6 % Normal 0-10 [facility] Comment on above: Performed By: #### L 501.5425, L500.2500, L100.0100, L503.6620 #### [facility] [address] [place], [address] Neutrophils/100 WBC (Bld) 67.2 % Normal 47-70 [facility] Comment on above: Performed By: #### L 501.5425, L500.2500, L100.0100, L503.6620 #### [facility] [address] [place], [address] Nucleated RBC (Bld) [#/Vol] 0 10*3/uL Normal 0-5 [facility] Comment on above: Performed By: #### L 501.5425, L500.2500, L100.0100, L503.6620 #### [facility] [address] [place], [address] Platelet mean volume (Bld) [Entitic vol] 9.0 fL Normal 6.2-12.0 [facility] Comment on above: Performed By: #### L 501.5425, L500.2500, L100.0100, L503.6620 #### [facility] [address] [place], [address] Platelets (Bld) [#/Vol] 377 10*3/uL Normal 150-450 [facility] Comment on above: Performed By: #### L 501.5425, L500.2500, L100.0100, L503.6620 #### [facility] [address] [place], [address] RBC (Bld) [#/Vol] 3.65 10*6/uL Low 4.6-6.2 [facility] Comment on above: Performed By: #### L 501.5425, L500.2500, L100.0100, L503.6620 #### [facility] [address] [place], [address] RDW SD 47.7 fl High 35.1-43.9 [facility] Comment on above: Performed By: #### L 501.5425, L500.2500, L100.0100, L503.6620 #### [facility] [address] [place], [address] WBC (Bld) [#/Vol] 8.4 10*3/uL Normal 4.4-11.0 [facility] Comment on above: Performed By: #### L 501.5425, L500.2500, L100.0100, L503.6620 #### [facility] [address] [place], [address] Chest PA and Lateralon 01-08 Chest PA and Lateral [facility] Imaging Services [address] [place] [address] Chest PA and Lateral MR#: [id number] Acct: [id number] Name: OLIVIER MENDOZA Rep #: [id number] : 1960 M 63 From: Timi Chester PCP: Dr. Sherice Avendano MD Status: REG ER Study: Chest PA and Lateral Date of Exam: 01/09/24 Exam# [id number] Ordering Dr: Denzel Carlin DO -[id number] INDICATION: chest pain EXAMINATION/TECHNIQ UE: X-RAY [...] Sherice Avendano MD; Dr. Denzel Carlin DO Retention Manager: Signed Normal [facility] Emergency Department Summary on 01-09-2024 Emergency Department Summary [facility] Medical Records Department [address] [place] [address] Emergency Department Summary 01/09/24 MR#: [id number] Acct: [id number] Name: OLIVIER MENDOZA Rep #: [id number] : 1960 63 From: Denzel Carlin DO [...] has been taking his medications as prescribed. [facility] Medical History Preop cardiovascular exam CKD (chronic kidney disease), stage III GERD (gastroesophageal reflux disease) Chest congestion Preoperative evaluation to rule out surgical contraindication Sinusitis Skin cyst Fatigue Left elbow pain Health care maintenance Proteinuria Nephropathy Bilateral lower extremity edema COVID-19 vaccine series completed Atherosclerotic heart disease of [place] coronary artery without angina pectoris Mixed hyperlipidemia [...] latex Allergy Unknown Unknown Verified 01/09/24 19:27 Hujokwb-DZK-EgV Reductase AdvReac Severe muscle pain Verified 01/09/24 19:27 Inhibitor (Vdimbgr-Aje-Dcz Reductase Inhibitor) Family History Mother Diabetes Myocardial infarction Heart disease High cholesterol Grandmother Parkinson disease Father Prostate cancer Grandfather COPD (chronic obstructive pulm (more content not included)... Normal [facility] Internal Medicine Office Vis iton 01-09-2024 Internal Medicine Office Visit [facility] [address] [place] [address] [place] [address] OFFICE VISIT Date of Service: 01/09/24 MR#: [id number] Acct: [id number] Name: OLIVIER MENDOZA Rep #: [id number] : 1960 Provider: Dr. Sherice rock MD Age/Sex: 63/M Location: [facility] Status: Signed Intake Vital Signs 10/11/23 15:10 [...] FOLLOW UP Chief Complaint: Follow-up chronic conditions Testing Tech Required: No Accompanied by: Self Is patient in pain?: No Allergies latex Allergy (Unknown, Verified 01/09/24 14:15) Unknown Zokapgf-WMY-KxN Reductase Inhibitor (Gwtnddj-Shi-Izv Reductase Inhibitor) Adverse Reaction (Severe, Verified 01/09/24 [...] vaccine series completed Atherosclerotic heart disease of [place] coronary artery without angina pectoris Mixed hyperlipidemia [...] Parkinson d (more content not included)... Normal [facility] L501.4020on 01-09-2024 TROPONIN-I HS 20 pg/mL Normal 3.0-78.0 [facility] Comment on above: Result Comment: Cheyenne aldana Note: New Test Units and Gender Specific Reference Ranges. For more information see Policy Stat Procedure [place] High Sensitivity Troponin (TNIH) and attachments. Performed By: #### L 100.0100, L501.4021, L500.2500 #### [facility] [address] [place], [place], [id number] L501.5425on 01-09-2024 TROPONIN-I HS 20 pg/mL Normal 3.0-78.0 [facility] Comment on above: Order Comment: 1 Y Result Comment: Cheyenne aldana Note: New Test Units and Gender Specific Reference Ranges. For more information see Policy Stat Procedure [place] High Sensitivity Troponin (TNIH) and attachments. Performed By: #### L 501.5425, L500.2500, L100.0100, L503.6620 #### [facility] [address] [place], [address] Lipid Profileon 01-09-2024 HDL Normal [facility] Comment on above: Result Comment: TOO SOON TO HAVE DONE The drugs N-Acetylcysteine and Metamizole may falsely depress this assay. Performed By: #### L 100.0100, L501.4021, L500.2500 #### [facility] [address] [place], [address] TRIG Normal [facility] Comment on above: Result Comment: TOO SOON TO HAVE DONE The drugs N-Acetylcysteine and Metamizole may falsely depress this assay. Performed By: #### L 100.0100, L501.4021, L500.2500 #### [facility] [address] [place], [address] CHOL Normal 200 [facility] Comment on above: Result Comment: TOO SOON TO HAVE DONE Performed By: #### L 100.0100, L501.4021, L500.2500 #### [facility] [address] [place], [address] LDL Normal 0-130 [facility] Comment on above: Result Comment: TOO SOON TO HAVE DONE Performed By: #### L 100.0100, L501.4021, L500.2500 #### [facility] [address] [place], [address] VLDL Normal 5-40 [facility] Comment on above: Result Comment: TOO SOON TO HAVE DONE Performed By: #### L 100.0100, L501.4021, L500.2500 #### [facility] [address] [place], [address] Liver Profileon 01-09-2024 ALB Normal 3.2-5.0 [facility] Comment on above: Result Comment: TOO SOON TO HAVE DONE Performed By: #### L 100.0100, L501.4021, L500.2500 #### [facility] [address] [place], [address] ALK P Normal 45-117 [facility] Comment on above: Result Comment: TOO SOON TO HAVE DONE Performed By: #### L 100.0100, L501.4021, L500.2500 #### [facility] [address] [place], [address] ALT Normal 16-61 [facility] Comment on above: Result Comment: TOO SOON TO HAVE DONE Performed By: #### L 100.0100, L501.4021, L500.2500 #### [facility] [address] [place], [address] AST Normal 15-37 [facility] Comment on above: Result Comment: TOO SOON TO HAVE DONE Performed By: #### L 100.0100, L501.4021, L500.2500 #### [facility] [address] [place], [address] D BILI Normal 0.00-0.30 [facility] Comment on above: Result Comment: TOO SOON TO HAVE DONE Performed By: #### L 100.0100, L501.4021, L500.2500 #### [facility] [address] [place], [address] T BILI Normal 0.20-1.00 [facility] Comment on above: Result Comment: TOO SOON TO HAVE DONE Performed By: #### L 100.0100, L501.4021, L500.2500 #### [facility] [address] [place], [address] T PROT Normal 6.4-8.2 [facility] Comment on above: Result Comment: TOO SOON TO HAVE DONE Performed By: #### L 100.0100, L501.4021, L500.2500 #### [facility] [address] [place], [address] Magnesiumon 01-09-2024 Magnesium [Mass/Vol] 2.1 mg/dL Normal 1.6-2.6 [facility] Comment on above: Performed By: #### L 100.0100, L501.4021, L500.2500 #### [facility] [address] [place], [address] OPERATIVE NOon 06-25-2023 OPERATIVE NO HNO ID: [id number] Author: FABIOLA PARKER JR, DO Service: Ophthalmology Author Type: Physician Type: Operative Report Filed: 07/12/2023 10:30 Note Text: [facility] - OPERATIVE REPORT OLIVIER MENDOZA : 1960 AGE: 62. SEX: M PATIENT TYPE: A HOSP SVC: OPH LOCATION: [place] [address] ATTENDING PHYSICIAN: Fabiola Parker DO CSN NUMBER: [id number] DATE OF SURGERY/PROCEDURE: 06/12/2023 INCISION/PROCEDURE START TIME: INCISION CLOSE/PROCEDURE END TIME: PREOPERATIVE DIAGNOSIS: Relatively chronic full-thickness macular hole, right eye. POSTOPERATIVE DIAGNOSIS: Relatively chronic full-thickness macular hole, right eye. SURGEON: Fabiola Parker DO WATCH PARTS GRINDER: SURGERY/PROCEDURE: ANESTHESIA: General. NAME OF OPERATIONS: Pars [...] was then r (more content not included)... [facility] [id number] 06-12-2023 [id number] HNO ID: [id number] Author: ADALI SULLIVAN RN Service: ? Author Type: Registered Nurse Type: [id number] Filed: 06/12/2023 13:46 Note Text: Patient positioning: [...] 06/12/23 1345 [place] ([place] ONCE ther instruction. [facility] 06-12-2023 ALLIED HEALTH HNO ID: [id number] Author: JESS MOORE RT(R) Service: Radiology Author [...] PATIENT PRESENTS WITH AN IMPLANTABLE OR ATTACHED ADVERTISING STRATEGIST: No RADIOLOGY DEPARTMENT: General X-ray: Exam(s) Completed: Chest X-Ray PERIPHERAL IV DATA: Not applicable SIGNED BY: RT Yasmany(R) June 12, 2023 11:47 AM [facility] ANES POSTPROC EVALon 024 ANES POSTPROC EVAL HNO ID: [id number] Author: AUDREY RIOS DO Service: Anesthesiology Author Type: Anesthesiologist Type: Anesthesia Postprocedure Evaluation Filed: 06/12/2023 12:52 Note Text: POST ANESTHESIA EVALUATION NOTE : 1960 Procedure Summary Date: 06/12/23 Room / Location: MR OR 08 / MR OR Anesthesia Start: 733 Anesthesia Stop: 1003 Procedure: VITRECTOMY 25G [facility] APPROACH W/ REMOVAL OF [...] June 12, 2023 TIME: 12:52 PM CSN: [id number] [facility] ANES PRE-OPon 06-12-2023 ANES PRE-OP HNO ID: [id number] Author: BLANCA, AUDREY, DO Service: Anesthesiology Author Type: Anesthesiologist Type: Anesthesia Preprocedure Evaluation Filed: 06/12/2023 06:54 Note Text: ANESTHESIOLOGY DAY OF SURGERY NOTE : 1960 Procedure Information Date/Time: 06/12/23729 Procedure: VITRECTOMY 25G [facility] APPROACH W/ REMOVAL OF [...] and consent discussed: yes. Patient / Responsible Democrat agrees to proceed: yes Patient / Surrogate [...] June 12, 2023 TIME: 6:54 AM CSN: [id number] [facility] BRIEF OP NOTon 06-12-2023 BRIEF OP NOT HNO ID: [id number] Author: FABIOLA PARKER JR, DO Service: Ophthalmology Author Type: Physician Type: Brief Op Note Filed: 06/12/2023 10:10 Note Text: BRIEF OPERATIVE / PROCEDURE NOTE LOG ID: [id number] SURGERY/PROCEDURE DATE: 06/12/2023 INCISION/PROCEDURE START TIME: 8:14 AM INCISION CLOSE/PROCEDURE END TIME: 9:47 AM SURGEON(S)/PROCEDUR ALIST(S) AND WATCH PARTS GRINDER(S): Surgeon(s) and Role: * Fabiola Parker Jr., DO - Primary Felt Hanger: Mariama Sandoval SA SURGERY/PROCEDURE(S ): Procedure(s) (LRB): VITRECTOMY 25G [facility] APPROACH W/ REMOVAL OF [...] DATE: June 12, 2023 TIME: 10:10 AM [facility] HISTORY PHYSICALon HISTORY PHYSICAL HNO ID: [id number] Author: FABIOLA PARKER JR, DO Service: Ophthalmology [...] DATE: June 12, 2023 TIME: 7:24 AM [facility] NURSING PROGon 06-12-2023 NURSING PROG HNO ID: [id number] Author: CATHY PATTEN RN Service: Nursing Author Type: Registered Nurse Type: Nursing Progress Note Filed: 06/12/2023 13:33 Note Text: Dr. Parker contacted regarding discharge instructions clarification. New discharge orders received. [facility] NURSING PROG HNO ID: [id number] Author: OLGA MILLER RN Service: Nursing Author Type: Registered Nurse Type: Nursing Progress Note Filed: 06/12/2023 11:30 Note Text: Dr Rios notified of pts resp status again, new order received for PCXR. Will continue to monitor. [facility] XR CHEST 1V FRONTAL PORTon 0 06-12-2023 [...] Decreased lung volumes with left perihilar atelectasis. Retention Manager: PSCB Transcribe Date/Time: Jun 12 2023 12:49P Dictated by : QUENTIN CAMARGO MD This examination was interpreted and the report reviewed and electronically signed by: QUENTIN CAMARGO MD on Jun 12 2023 12:50PM EST [id number] [facility] ANES PREOPon 06-11-2023 ANES PREOP HNO ID: [id number] Author: DILLON PRUETT PA-C Service: ? Author Type: Physician Edge Stainer Machine Type: Anesthesia PreOp Filed: 06/11/2023 08:48 Note Text: 62 yo male ex-smoker PMH: CKD3, CAD (no PCI - [place] [facility]), carotid artery stenosis, HTN, HLD, DM on insulin, hypothyroid, Meniere's, [place] intolerant of CPAP, BPH on tadalafil, GERD Medical clearance from [place] scanned in [facility] under HANDP noting he is medically optimized for surgery but requires cardiology evaluation prior to surgery. (Page 6) Cardiac clearance by German GARCIA scanned under HANDP in [facility] (page 13) Most recent echo in 2019 showed EF of 60%. If needed, he should hold aspirin 7 days prior.) EKG 06/06/23 SR rate 79, Tracing page 14 From HANDP [facility] 05/09/20 diffuse CAD with small vessels noted in the entire coronary vasculature [facility] Absolute lymphocyte countOrd ered By: Sherice Avendano on 05-22-2023 Lymphocytes Auto (Unsp spec) [#/Vol] 1.24 10*3/uL 0.83-4.51 [facility] Automated lymphocyte count a s percentage of total leukocytesOrdered By: Sherice Avendano on 05-22-2023 Lymphocytes/100 WBC Auto (Unsp spec) 16.6 % 19-41 [facility] Basophil percentageOrdered B y: Sherice Avendano on 05-22-2023 Basophils/100 WBC (Bld) 0.3 % 0-1 [facility] Bilirubin [Mass/Vol] 0.40 mg/dL 0.20-1.00 [facility] Comment on above: For patients on eltr ombopag therapy, use of Dimension [place] TBIL is not recommended. Chloride [Moles/Vol] 102 mmol/L 98-107 [facility] Eosinophils/100 WBC (Bld) 3.6 % 0-5 [facility] Glucose [Mass/Vol] 239 mg/dL 74-106 [facility] Comment on above: Glucose result great er than or equal to 200 mg/dLsuggests DIABETES MELLITUS per A.D.A. criteria. Hemoglobin (Bld) [Mass/Vol] 11.9 g/dL 13.0-16.5 [facility] Monocytes/100 WBC (Bld) 6.4 % 0-10 [facility] Neutrophils (Bld) [#/Vol] 5.4 10*3/uL 2.0-7.7 [facility] Neutrophils/100 WBC (Bld) 72.7 % 47-70 [facility] Potassium [Moles/Vol] 5.4 mmol/L 3.5-5.1 [facility] Protein [Mass/Vol] 6.7 g/dL 6.4-8.2 [facility] Sodium [Moles/Vol] 135 mmol/L 136-145 [facility] WBC (Bld) [#/Vol] 7.5 10*3/uL 4.4-11.0 [facility] Determination of erythrocyte mean corpuscular volume (MCV)Ordered By: Shreice Avendano on 05-22-2023 MCV (RBC) [Entitic vol] 91.2 fL 80-94 [facility] Erythrocyte distribution wid th ratioOrdered By: [facility] on 05-22-2023 Erythrocyte distribution width (RBC) [Ratio] 14.1 % 11.6-14.6 [facility] Erythrocyte distribution wid th standard deviationOrdered By: Luis Ahomesteadkarla Avendano on 05-22-2023 Erythrocyte distribution width (RBC) [Entitic vol] 47.2 fL 35.1-43.9 [facility] Hematocrit Auto (Bld) [Volum e fraction]Ordered By: Sherice Avendano on 05-22-2023 Hematocrit (Bld) [Volume fraction] 37.5 % 40-54 [facility] Immature granulocytes/100 WB C Auto (Bld)Ordered By: Sherice Avendano on 05-22-2023 Immature granulocytes/100 WBC (Bld) 0.400 % 0.0-0.9 [facility] Comment on above: IG% - Immature Granu locytes (promyelocytes, myelocytes and metamyelocytes) > 1% indicates that a LEFT SHIFT is Present. Laboratory - Chemistry and C hemistry - challengeOrdered By: Sherice Avendano on 05-22-2023 Albumin/Globulin [Mass ratio] 0.7 {ratio} 0.9-2.4 [facility] ALP [Catalytic activity/Vol] 129 U/L 45-117 [facility] ALT [Catalytic activity/Vol] 26 U/L 16-61 [facility] CO2 [Moles/Vol] 27.0 mmol/L 21.0-32.0 [facility] Globulin (S) [Mass/Vol] 3.9 g/dL 2.2-4.2 [facility] Urea nitrogen/Creatinine [Mass ratio] 15.2 mg/mg 10-20 [facility] - Hematology and Cell countsOrdered By: Sherice Avendano on 05-22-2023 MCH (RBC) [Entitic mass] 29.0 pg 27.0-32.0 [facility] MCHC (RBC) [Mass/Vol] 31.7 g/dL 32-36 [facility] Nucleated RBC/100 WBC (Bld) [Ratio] 0 % 0-5 [facility] Platelet mean volume (Bld) [Entitic vol] 9.2 fL 6.2-12.0 [facility] Platelets (Bld) [#/Vol] 400 10*3/uL 150-450 [facility] No Panel InformationOrdered By: Sherice Avendano on 05-22-2023 Estimated GFR (MDRD) Amer 50 mL/min >60 [facility] Comment on above: GFR Calc Estimated GFR (MDRD) Non-Af Amer 41 mL/min >60 [facility] Comment on above: Non- GFR Calc RBC Auto (Bld) [#/Vol]Ordere d By: Sherice Avendano on 05-22-2023 RBC (Bld) [#/Vol] 4.11 10*6/uL 4.6-6.2 [facility] Serum or plasma calcium tiera urement (mass/volume)Ordered By: Sherice Avendano on 05-22-2023 Calcium [Mass/Vol] 9.1 mg/dL 8.5-10.1 [facility] Serum or plasma creatinine m easurement (mass/volume)Ordered By: Sherice Avendano on 05-22-2023 Creatinine [Mass/Vol] 1.78 mg/dL 0.70-1.30 [facility] Comment on above: The validity of the calculated GFR & GFRAA in patients over 70 years has not been determined. Clinical correlation is essential. Serum or plasma thyroid stim ulating hormone (TSH) measurement (units/volume)Ordered By: [facility] Iversoneros on 05-22-2023 TSH Qn 3.99 uIU/mL 0.358-3.74 [facility] Serum or plasma urea nitroge n measurement (mass/volume)Ordered By: [facility] Iversoneros on 05-22-2023 Urea nitrogen [Mass/Vol] 27 mg/dL 7-18 [facility] Thin prep Papanicolaou smear with manual screeningOrdered By: [facility] Iversoneros on 05-22-2023 Thin prep Papanicolaou smear with manual screening 2.8 g/dL 3.2-5.0 [facility] Thin prep Papanicolaou smear with manual screening 18 U/L 15-37 [facility] Thin prep Papanicolaou smear with manual screening 6 5-15 [facility] - Microbiology an d Antimicrobial susceptibilityOrdered By: Yan Quintanilla on 04-24-2023 SARS-CoV-2 (COVID-19) RNA LUIGI+probe Ql (Unsp spec) [facility] CNCOon 04-15-2023 CNCO Letter Text Normal [facility] Absolute lymphocyte countOrd ered By: Sherice Avendano on 04-01-2023 Lymphocytes Auto (Unsp spec) [#/Vol] 1.39 10*3/uL 0.83-4.51 [facility] Automated lymphocyte count a s percentage of total leukocytesOrdered By: Sherice Avendano on 04-01-2023 Lymphocytes/100 WBC Auto (Unsp spec) 20.3 % 19-41 [facility] Basophil percentageOrdered B y: RIYA LAUREN on 04-01-2023 Bilirubin [Mass/Vol] 0.30 mg/dL 0.20-1.00 [facility] Comment on above: For patients on eltr ombopag therapy, use of Dimension [place] TBIL is not recommended. Chloride [Moles/Vol] 100 mmol/L 98-107 [facility] Cholesterol [Mass/Vol] 317 mg/dL <200 [facility] Comment on above: <200 mg/dL Desirable 200-240 mg/dL Borderline >240 mg/dL High Risk Glucose [Mass/Vol] 194 mg/dL 74-106 [facility] Comment on above: Fasting Glucose resu lt greater than or equal to 126 mg/dL suggests DIABETES MELLITUS per A.D.A. criteria. Potassium [Moles/Vol] 4.8 mmol/L 3.5-5.1 [facility] Protein [Mass/Vol] 7.2 g/dL 6.4-8.2 [facility] Sodium [Moles/Vol] 131 mmol/L 136-145 [facility] Triglyceride [Mass/Vol] 148 mg/dL <199 [facility] Comment on above: The drugs N-Acetylcy steine and Metamizole may falsely depress this assay.Serum Triglycerides Reference Interval Normal <150 mg/dL Borderline high 150 - 199 mg/dL High 200 - 499 mg/dL Very High > or = 500 mg/dL Basophil percentageOrdered B y: Sherice Avendano on 04-01-2023 Basophils/100 WBC (Bld) 0.6 % 0-1 [facility] Eosinophils/100 WBC (Bld) 3.7 % 0-5 [facility] Hemoglobin (Bld) [Mass/Vol] 12.5 g/dL 13.0-16.5 [facility] Monocytes/100 WBC (Bld) 7.3 % 0-10 [facility] Neutrophils (Bld) [#/Vol] 4.6 10*3/uL 2.0-7.7 [facility] Neutrophils/100 WBC (Bld) 67.8 % 47-70 [facility] Testosterone [Mass/Vol] 601 ng/dL 264-916 [facility] Comment on above: Adult male reference interval is based on a population ofhealthy nonobese males (BMI <30) between 19 and 39 yearsold. soraida Richards.al. JCEM 2017,102;1823-7494. PMID:[id number]. WBC (Bld) [#/Vol] 6.8 10*3/uL 4.4-11.0 [facility] Determination of erythrocyte mean corpuscular volume (MCV)Ordered By: Sherice Avendano on 04-01-2023 MCV (RBC) [Entitic vol] 91.2 fL 80-94 [facility] Erythrocyte distribution wid th ratioOrdered By: [facility] Iversoneros on 04-01-2023 Erythrocyte distribution width (RBC) [Ratio] 13.4 % 11.6-14.6 [facility] Erythrocyte distribution wid th standard deviationOrdered By: [facility] Iversoneros on 04-01-2023 Erythrocyte distribution width (RBC) [Entitic vol] 45.2 fL 35.1-43.9 [facility] Free testosterone percentage Ordered By: amarilishomesteadkarla Avendano on 04-01-2023 Testosterone Free/Testosterone.total [Mass fraction] 2.20 % 1.50-4.20 [facility] Comment on above: Performed at: [facility] [employer] [address] [id number] Director: Aaron Lay PhD, Phone: [phone] at: [facility] [id number] Director: Eddi Ryan MD, Phone: [phone] Hematocrit Auto (Bld) [Volum e fraction]Ordered By: Sherice Avendano on 04-01-2023 Hematocrit (Bld) [Volume fraction] 39.6 % 40-54 [facility] High density lipoprotein (HD L) measurementOrdered By: RIYA LAUREN on 04-01-2023 Cholesterol in HDL (Body fld) [Mass/Vol] 68 mg/dL >40 [facility] Comment on above: The drugs N-Acetylcy steine and Metamizole may falsely depress this assay. Reference Range HDL <40 mg/dL Low HDL Cholesterol HDL >or= 60 mg/dL High HDL Cholesterol Immature granulocytes/100 WB C Auto (Bld)Ordered By: Sherice Avendano on 04-01-2023 Immature granulocytes/100 WBC (Bld) 0.300 % 0.0-0.9 [facility] Comment on above: IG% - Immature Granu locytes (promyelocytes, myelocytes and metamyelocytes) > 1% indicates that a LEFT SHIFT is Present. Laboratory - Chemistry and C hemistry - challengeOrdered By: RIYA LAUREN on 04-01-2023 Albumin/Globulin [Mass ratio] 0.8 {ratio} 0.9-2.4 [facility] ALP [Catalytic activity/Vol] 119 U/L 45-117 [facility] ALT [Catalytic activity/Vol] 24 U/L 16-61 [facility] CO2 [Moles/Vol] 27.0 mmol/L 21.0-32.0 [facility] Globulin (S) [Mass/Vol] 4.1 g/dL 2.2-4.2 [facility] Urea nitrogen/Creatinine [Mass ratio] 15.2 mg/mg 10-20 [facility] - Hematology and Cell countsOrdered By: Sherice Avendano on 04-01-2023 MCH (RBC) [Entitic mass] 28.8 pg 27.0-32.0 [facility] MCHC (RBC) [Mass/Vol] 31.6 g/dL 32-36 [facility] Nucleated RBC/100 WBC (Bld) [Ratio] 0 % 0-5 [facility] Platelets (Bld) [#/Vol] 414 10*3/uL 150-450 [facility] Low density lipoprotein (LDL ) cholesterol measurementOrdered By: RIYA LAUREN on 04-01-2023 Cholesterol in LDL (Body fld) [Moles/Vol] 219 mg/dL 0-130 [facility] No Panel InformationOrdered By: RIYA LAUREN on 04-01-2023 Estimated GFR (MDRD) Amer 48 mL/min >60 [facility] Comment on above: GFR Calc Estimated GFR (MDRD) Non-Af Amer 40 mL/min >60 [facility] Comment on above: Non- GFR Calc Platelet mean volume Albert-Ec ker (Bld) [Entitic vol]Ordered By: Sherice Avendano on 04-01-2023 Platelet mean volume (Bld) [Entitic vol] 9.4 fL 6.2-12.0 [facility] RBC Auto (Bld) [#/Vol]Ordere d By: Sherice Avendano on 04-01-2023 RBC (Bld) [#/Vol] 4.34 10*6/uL 4.6-6.2 [facility] Serum or plasma calcium tiera urement (mass/volume)Ordered By: RIYA LAUREN on 04-01-2023 Calcium [Mass/Vol] 8.6 mg/dL 8.5-10.1 [facility] Serum or plasma creatinine m easurement (mass/volume)Ordered By: RIYA LAUREN on 04-01-2023 Creatinine [Mass/Vol] 1.84 mg/dL 0.70-1.30 [facility] Comment on above: The validity of the calculated GFR & GFRAA in patients over 70 years has not been determined. Clinical correlation is essential. Serum or plasma testosterone free measurement (mass/volume)Ordered By: Sherice Avendano on 04-01-2023 Testosterone Free [Mass/Vol] 13.22 ng/dL 5.00-21.00 [facility] Serum or plasma thyroid stim ulating hormone (TSH) measurement (units/volume)Ordered By: RIYA LAUREN on 04-01-2023 TSH Qn 3.09 uIU/mL 0.358-3.74 [facility] Serum or plasma urea nitroge n measurement (mass/volume)Ordered By: RIYA LAUREN on 04-01-2023 Urea nitrogen [Mass/Vol] 28 mg/dL 7-18 [facility] Thin prep Papanicolaou smear with manual screeningOrdered By: RIYA LAUREN on 04-01-2023 Thin prep Papanicolaou smear with manual screening 3.1 g/dL 3.2-5.0 [facility] Thin prep Papanicolaou smear with manual screening 18 U/L 15-37 [facility] Thin prep Papanicolaou smear with manual screening 4 5-15 [facility] Very low density lipoprotein (VLDL) cholesterol measurementOrdered By: RIYA LAUREN on 04-01-2023 Cholesterol in VLDL Calc [Moles/Vol] 30 mg/dL 5-40 [facility] Whole blood hemoglobin A1c/t otal hemoglobin ratio (mass fraction)Ordered By: RIYA LAUREN on 04-01-2023 HbA1c (Bld) [Mass fraction] 8.7 % 3.8-5.6 [facility] Comment on above: Normal < 5.7 % Predi abetic 5.7 - 6.4 % Diabetic >or= 6.5 % Please note range changes. Basophil percentageOrdered B y: Edna Tilley on 11-27-2022 Bilirubin [Mass/Vol] 0.30 mg/dL 0.20-1.00 [facility] Comment on above: For patients on eltr ombopag therapy, use of Dimension [place] TBIL is not recommended. Chloride [Moles/Vol] 105 mmol/L 98-107 [facility] Glucose [Mass/Vol] 163 mg/dL 74-106 [facility] Comment on above: Fasting Glucose resu lt greater than or equal to 126 mg/dL suggests DIABETES MELLITUS per A.D.A. criteria. Potassium [Moles/Vol] 4.9 mmol/L 3.5-5.1 [facility] Protein [Mass/Vol] 6.6 g/dL 6.4-8.2 [facility] [facility] Sodium [Moles/Vol] 134 mmol/L 136-145 [facility] Laboratory - Chemistry and C hemistry - challengeOrdered By: Edna Tilley on 11-27-2022 ALP [Catalytic activity/Vol] 131 U/L 45-117 [facility] ALT [Catalytic activity/Vol] 23 U/L 16-61 [facility] CO2 [Moles/Vol] 24.0 mmol/L 21.0-32.0 [facility] Globulin (S) [Mass/Vol] 3.8 g/dL 2.2-4.2 [facility] Urea nitrogen/Creatinine [Mass ratio] 15.7 mg/mg 10-20 [facility] No Panel InformationOrdered By: Edna Tilley on 11-27-2022 Estimated GFR (MDRD) Amer 57 mL/min >60 [facility] Comment on above: GFR Calc Estimated GFR (MDRD) Non-Af Amer 47 mL/min >60 [facility] Comment on above: Non- GFR Calc Serum or plasma albumin tiera urement (mass/volume)Ordered By: Edna Tilley on 11-27-2022 Albumin [Mass/Vol] 2.8 g/dL 3.2-5.0 [facility] Serum or plasma albumin/glob ulin mass ratioOrdered By: Edna Tilley on 11-27-2022 Albumin/Globulin [Mass ratio] 0.7 {ratio} 0.9-2.4 [facility] Serum or plasma calcium tiera urement (mass/volume)Ordered By: Edna Tilley on 11-27-2022 Calcium [Mass/Vol] 8.1 mg/dL 8.5-10.1 [facility] Serum or plasma creatinine m easurement (mass/volume)Ordered By: Edna Tilley on 11-27-2022 Creatinine [Mass/Vol] 1.59 mg/dL 0.70-1.30 [facility] Comment on above: The validity of the calculated GFR & GFRAA in patients over 70 years has not been determined. Clinical correlation is essential. Serum or plasma urea nitroge n measurement (mass/volume)Ordered By: Edna Tilley on 11-27-2022 Urea nitrogen [Mass/Vol] 25 mg/dL 7-18 [facility] Thin prep Papanicolaou smear with manual screeningOrdered By: Edna Tilley on 11-27-2022 Thin prep Papanicolaou smear with manual screening 15 U/L 15-37 [facility] Thin prep Papanicolaou smear with manual screening 5 5-15 [facility] Urine creatinine measurement (mass/volume)Ordered By: Edna Tilley on 11-27-2022 Creatinine (U) [Mass/Vol] 63.30 mg/dL NO RANGE EST. [facility] Urine protein measurement (m ass/volume)Ordered By: Edna Tilley on 11-27-2022 Protein (U) [Mass/Vol] 138.4 mg/dL 0.0-11.8 [facility] Urine protein/creatinine mas s ratioOrdered By: Edna Tilley on 11-27-2022 Protein/Creatinine (U) [Mass ratio] 2186 mg/g CRE 0-200 [facility] Whole blood hemoglobin A1c/t otal hemoglobin ratio (mass fraction)Ordered By: Edna Tilley on 11-27-2022 HbA1c (Bld) [Mass fraction] 9.0 % 3.8-5.6 [facility] Comment on above: Normal < 5.7 % Predi abetic 5.7 - 6.4 % Diabetic >or= 6.5 % Please note range changes. Basophil percentageOrdered B y: Sherice Joeeros on 09-28-2022 Bilirubin [Mass/Vol] 0.40 mg/dL 0.20-1.00 [facility] Comment on above: For patients on eltr ombopag therapy, use of Dimension [place] TBIL is not recommended. Chloride [Moles/Vol] 103 mmol/L 98-107 [facility] Glucose [Mass/Vol] 263 mg/dL 74-106 [facility] Comment on above: Glucose result great er than or equal to 200 mg/dLsuggests DIABETES MELLITUS per A.D.A. criteria. Potassium [Moles/Vol] 4.7 mmol/L 3.5-5.1 [facility] Protein [Mass/Vol] 7.0 g/dL 6.4-8.2 [facility] Sodium [Moles/Vol] 135 mmol/L 136-145 [facility] Laboratory - Chemistry and C hemistry - challengeOrdered By: Sherice Avendano on 09-28-2022 ALP [Catalytic activity/Vol] 164 U/L 45-117 [facility] ALT [Catalytic activity/Vol] 26 U/L 16-61 [facility] CO2 [Moles/Vol] 30.0 mmol/L 21.0-32.0 [facility] Globulin (S) [Mass/Vol] 4.1 g/dL 2.2-4.2 [facility] Urea nitrogen/Creatinine [Mass ratio] 16.0 mg/mg 10-20 [facility] No Panel InformationOrdered By: Sherice Avendano on 09-28-2022 Estimated GFR (MDRD) Amer 53 mL/min >60 [facility] Comment on above: GFR Calc Estimated GFR (MDRD) Non-Af Amer 44 mL/min >60 [facility] Comment on above: Non- GFR Calc Vitamin D 25-Hydroxy 43.9 ng/mL [facility] Comment on above: Vitamin D 25(OH) Sta tus Range Deficiency <20 ng/mL (50nmol/L) Insufficiency 20 - 30 ng/mL (50 - 75 nmol/L) Sufficiency 30 - 100 ng/mL (75 - 250 nmol/L) Toxicity >100 ng/mL (>250 nmol/L) Serum or plasma albumin tiera urement (mass/volume)Ordered By: Sherice Avendano on 09-28-2022 Albumin [Mass/Vol] 2.9 g/dL 3.2-5.0 [facility] Serum or plasma albumin/glob ulin mass ratioOrdered By: Sherice Avendano on 09-28-2022 Albumin/Globulin [Mass ratio] 0.7 {ratio} 0.9-2.4 [facility] Serum or plasma calcium tiera urement (mass/volume)Ordered By: Sherice Avendano on 09-28-2022 Calcium [Mass/Vol] 8.6 mg/dL 8.5-10.1 [facility] Serum or plasma creatinine m easurement (mass/volume)Ordered By: Sherice Avendano on 09-28-2022 Creatinine [Mass/Vol] 1.69 mg/dL 0.70-1.30 [facility] Comment on above: The validity of the calculated GFR & GFRAA in patients over 70 years has not been determined. Clinical correlation is essential. Serum or plasma urea nitroge n measurement (mass/volume)Ordered By: Sherice Avendano on 09-28-2022 Urea nitrogen [Mass/Vol] 27 mg/dL 7-18 [facility] Thin prep Papanicolaou smear with manual screeningOrdered By: Sherice Avendano on 09-28-2022 Thin prep Papanicolaou smear with manual screening 12 U/L 15-37 [facility] Thin prep Papanicolaou smear with manual screening 2 5-15 [facility] Whole blood hemoglobin A1c/t otal hemoglobin ratio (mass fraction)Ordered By: Enrrique Vaughn on 09-28-2022 HbA1c (Bld) [Mass fraction] 9.6 % 3.8-5.6 [facility] Comment on above: Normal < 5.7 % Predi abetic 5.7 - 6.4 % Diabetic >or= 6.5 % Please note range changes. Laboratory - Hematology and Cell countson 08-15-2022 HbA1c (Bld) [Mass fraction] 9.6 % 4.2-6.3 [facility] Basophil percentageOrdered B y: Dr. Vaughn on 05-01-2022 Basophil percentage 3.7 mg/dL 2.5-4.9 [facility] Bilirubin [Mass/Vol] 0.40 mg/dL 0.20-1.00 [facility] Comment on above: For patients on eltr ombopag therapy, use of Dimension [place] TBIL is not recommended. Chloride [Moles/Vol] 102 mmol/L 98-107 [facility] Glucose [Mass/Vol] 223 mg/dL 74-106 [facility] Comment on above: Glucose result great er than or equal to 200 mg/dLsuggests DIABETES MELLITUS per A.D.A. criteria. Potassium [Moles/Vol] 4.3 mmol/L 3.5-5.1 [facility] Protein [Mass/Vol] 6.5 g/dL 6.4-8.2 [facility] Sodium [Moles/Vol] 137 mmol/L 136-145 [facility] WBC (Bld) [#/Vol] 6.9 10*3/uL 4.4-11.0 [facility] Blood erythrocytes count (nu mber/volume)Ordered By: Dr. Vaughn on 05-01-2022 RBC (Bld) [#/Vol] 4.15 10*6/uL 4.6-6.2 [facility] Blood hemoglobin measurement (mass/volume)Ordered By: Dr. Vaughn on 05-01-2022 Hemoglobin (Bld) [Mass/Vol] 12.3 g/dL 13.0-16.5 [facility] Blood platelet mean volumeOr dered By: Dr. Vaughn on 05-01-2022 Platelet mean volume (Bld) [Entitic vol] 9.7 fL 6.2-12.0 [facility] Determination of erythrocyte mean corpuscular volume (MCV)Ordered By: Dr. Vaughn on 05-01-2022 MCV (RBC) [Entitic vol] 91.6 fL 80-94 [facility] Hematocrit Auto (Bld) [Volum e fraction]Ordered By: Dr. Vaughn on 05-01-2022 Hematocrit (Bld) [Volume fraction] 38.0 % 40-54 [facility] Laboratory - Chemistry and C hemistry - challengeOrdered By: Dr. Vaughn on 05-01-2022 ALP [Catalytic activity/Vol] 127 U/L 45-117 [facility] ALT [Catalytic activity/Vol] 22 U/L 16-61 [facility] CO2 [Moles/Vol] 28.0 mmol/L 21.0-32.0 [facility] Globulin (S) [Mass/Vol] 3.7 g/dL 2.2-4.2 [facility] Urea nitrogen/Creatinine [Mass ratio] 14.6 mg/mg 10-20 [facility] Laboratory - Hematology and Cell countsOrdered By: Dr. Vaughn on 05-01-2022 Erythrocyte distribution width (RBC) [Entitic vol] 46.5 fL 35.1-43.9 [facility] Erythrocyte distribution width (RBC) [Ratio] 13.7 % 11.6-14.6 [facility] MCH (RBC) [Entitic mass] 29.6 pg 27.0-32.0 [facility] MCHC Auto (RBC) [Mass/Vol]Or dered By: Dr. Vaughn on 05-01-2022 MCHC (RBC) [Mass/Vol] 32.4 g/dL 32-36 [facility] No Panel InformationOrdered By: Dr. Hale on 05-01-2022 Prostate Specific Antigen Screen 0.30 ng/mL 0.00-4.00 [facility] Comment on above: This test was perfor med using the TPSA assay method [facility]. Values obtained with differentassay methods cannot be used interchangably.When changing PSA assays in the course of monitoring apatient, additional sequential testing should be carriedout to confirm baseline values. No Panel InformationOrdered By: Dr. Vaughn on 05-01-2022 Estimated GFR (MDRD) Amer 57 mL/min >60 [facility] Comment on above: GFR Calc Estimated GFR (MDRD) Non-Af Amer 47 mL/min >60 [facility] Comment on above: Non- GFR Calc Parathyroid Hormone (Intact) 55.5 pg/mL 18.4-80.1 [facility] Thyroid Stimulating Hormone (TSH) 3.30 uIU/mL 0.358-3.74 [facility] Platelets bldOrdered By: Dr. Vaughn on 05-01-2022 Platelets (Bld) [#/Vol] 357 10*3/uL 150-450 [facility] Serum or plasma albumin tiera urement (mass/volume)Ordered By: Dr. Vaughn on 05-01-2022 Albumin [Mass/Vol] 2.8 g/dL 3.2-5.0 [facility] Serum or plasma albumin/glob ulin mass ratioOrdered By: Dr. Vaughn on 05-01-2022 Albumin/Globulin [Mass ratio] 0.8 {ratio} 0.9-2.4 [facility] Serum or plasma calcium tiera urement (mass/volume)Ordered By: Dr. Vaughn on 05-01-2022 Calcium [Mass/Vol] 8.4 mg/dL 8.5-10.1 [facility] Serum or plasma creatinine m easurement (mass/volume)Ordered By: Dr. Vaughn on 05-01-2022 Creatinine [Mass/Vol] 1.58 mg/dL 0.70-1.30 [facility] Comment on above: The validity of the calculated GFR & GFRAA in patients over 70 years has not been determined. Clinical correlation is essential. Serum or plasma urea nitroge n measurement (mass/volume)Ordered By: Dr. Vaughn on 05-01-2022 Urea nitrogen [Mass/Vol] 23 mg/dL 7-18 [facility] Thin prep Papanicolaou smear with manual screeningOrdered By: Dr. Vaughn on 05-01-2022 Thin prep Papanicolaou smear with manual screening 15 U/L 15-37 [facility] Thin prep Papanicolaou smear with manual screening 7 5-15 [facility] Urine creatinine measurement (mass/volume)Ordered By: Dr. Vaughn on 05-01-2022 Creatinine (U) [Mass/Vol] 74.60 mg/dL NO RANGE EST. [facility] Urine protein measurement (m ass/volume)Ordered By: Dr. Vaughn on 05-01-2022 Protein (U) [Mass/Vol] 230.3 mg/dL 0.0-11.8 [facility] Urine protein/creatinine mas s ratioOrdered By: Dr. Vaughn on 05-01-2022 Protein/Creatinine (U) [Mass ratio] 3087 mg/g CRE 0-200 [facility] Whole blood hemoglobin A1c/t otal hemoglobin ratio (mass fraction)Ordered By: Dr. Vaughn on 05-01-2022 HbA1c (Bld) [Mass fraction] 8.2 % 3.8-5.6 [facility] Comment on above: Normal < 5.7 % Predi abetic 5.7 - 6.4 % Diabetic >or= 6.5 % Please note range changes. Absolute lymphocyte countOrd ered By: Gennaro Fuentes on 01-26-2022 Lymphocytes Auto (Unsp spec) [#/Vol] 1.26 10*3/uL 0.83-4.51 [facility] Basophil percentageOrdered B y: Gennaro Fuentes on 01-26-2022 Basophil percentage 3.7 mg/dL 2.5-4.9 [facility] Basophils/100 WBC (Bld) 0.5 % 0-1 [facility] Chloride [Moles/Vol] 103 mmol/L 98-107 [facility] Eosinophils/100 WBC (Bld) 2.8 % 0-5 [facility] Glucose [Mass/Vol] 235 mg/dL 74-106 [facility] Comment on above: Glucose result great er than or equal to 200 mg/dLsuggests DIABETES MELLITUS per A.D.A. criteria. Neutrophils (Bld) [#/Vol] 5.6 10*3/uL 2.0-7.7 [facility] Neutrophils/100 WBC (Bld) 72.0 % 47-70 [facility] Potassium [Moles/Vol] 5.2 mmol/L 3.5-5.1 [facility] Sodium [Moles/Vol] 136 mmol/L 136-145 [facility] WBC (Bld) [#/Vol] 7.8 10*3/uL 4.4-11.0 [facility] Blood erythrocytes count (nu mber/volume)Ordered By: Gennaro Fuentes on 01-26-2022 RBC (Bld) [#/Vol] 4.13 10*6/uL 4.6-6.2 [facility] Blood hemoglobin measurement (mass/volume)Ordered By: Gennaro Fuentes on 01-26-2022 Hemoglobin (Bld) [Mass/Vol] 12.7 g/dL 13.0-16.5 [facility] Blood lymphocytes/100 leukoc ytesOrdered By: Gennaro Fuentes on 01-26-2022 Lymphocytes/100 WBC (Bld) 16.2 % 19-41 [facility] Blood monocytes/100 leukocyt esOrdered By: Gennaro Fuentes on 01-26-2022 Monocytes/100 WBC (Bld) 8.2 % 0-10 [facility] Blood platelet mean volumeOr dered By: Gennaro Fuentes on 01-26-2022 Platelet mean volume (Bld) [Entitic vol] 9.1 fL 6.2-12.0 [facility] Determination of erythrocyte mean corpuscular volume (MCV)Ordered By: Gennaro Fuentes on 01-26-2022 MCV (RBC) [Entitic vol] 91.8 fL 80-94 [facility] Hematocrit Auto (Bld) [Volum e fraction]Ordered By: Gennaro Fuentes on 01-26-2022 Hematocrit (Bld) [Volume fraction] 37.9 % 40-54 [facility] Laboratory - Chemistry and C hemistry - challengeOrdered By: Gennaro Fuentes on 01-26-2022 CO2 [Moles/Vol] 26.0 mmol/L 21.0-32.0 [facility] Urea nitrogen/Creatinine [Mass ratio] 15.1 mg/mg 10-20 [facility] Laboratory - Hematology and Cell countsOrdered By: Gennaro Fuentes on 01-26-2022 Erythrocyte distribution width (RBC) [Entitic vol] 45.7 fL 35.1-43.9 [facility] Erythrocyte distribution width (RBC) [Ratio] 13.5 % 11.6-14.6 [facility] Immature granulocytes/100 WBC (Bld) 0.300 % 0.0-0.9 [facility] Comment on above: IG% - Immature Granu locytes (promyelocytes, myelocytes and metamyelocytes) > 1% indicates that a LEFT SHIFT is Present. MCH (RBC) [Entitic mass] 30.8 pg 27.0-32.0 [facility] Nucleated RBC/100 WBC (Bld) [Ratio] 0 % 0-5 [facility] MCHC Auto (RBC) [Mass/Vol]Or dered By: Gennaro Fuentes on 01-26-2022 MCHC (RBC) [Mass/Vol] 33.5 g/dL 32-36 [facility] No Panel InformationOrdered By: Gennaro Fuentes on 01-26-2022 Estimated GFR (MDRD) Amer 66 mL/min >60 [facility] Comment on above: GFR Calc Estimated GFR (MDRD) Non-Af Amer 55 mL/min >60 [facility] Comment on above: Non- GFR Calc Platelets bldOrdered By: Sean Fuentes on 01-26-2022 Platelets (Bld) [#/Vol] 395 10*3/uL 150-450 [facility] Serum or plasma albumin tiera urement (mass/volume)Ordered By: Gennaro Fuentes on 01-26-2022 Albumin [Mass/Vol] 3.2 g/dL 3.2-5.0 [facility] Serum or plasma calcium tiera urement (mass/volume)Ordered By: Gennaro Fuentes on 01-26-2022 Calcium [Mass/Vol] 9.2 mg/dL 8.5-10.1 [facility] Serum or plasma creatinine m easurement (mass/volume)Ordered By: Gennaro Fuentes on 01-26-2022 Creatinine [Mass/Vol] 1.39 mg/dL 0.70-1.30 [facility] Comment on above: The validity of the calculated GFR & GFRAA in patients over 70 years has not been determined. Clinical correlation is essential. Serum or plasma urea nitroge n measurement (mass/volume)Ordered By: Gennaro Fuentes on 01-26-2022 Urea nitrogen [Mass/Vol] 21 mg/dL 7-18 [facility] Urine creatinine measurement (mass/volume)Ordered By: Gennaro Fuentes on 01-26-2022 Creatinine (U) [Mass/Vol] 39.50 mg/dL NO RANGE EST. [facility] Urine protein measurement (m ass/volume)Ordered By: Gennaro Fuentes on 01-26-2022 Protein (U) [Mass/Vol] 125.0 mg/dL 0.0-11.8 [facility] Urine protein/creatinine mas s ratioOrdered By: Gennaro Fuentes on 01-26-2022 Protein/Creatinine (U) [Mass ratio] 3165 mg/g CRE 0-200 [facility] Basophil percentageon 2021 Bilirubin [Mass/Vol] 0.30 mg/dL 0.20-1.00 [facility] Work Phone: Comment on above: For patients on eltr ombopag therapy, use of Dimension [place] TBIL is not recommended. Chloride [Moles/Vol] 100 mmol/L 98-107 [facility] Work Phone: Glucose [Mass/Vol] 450 mg/dL 74-106 [facility] Work Phone: Comment on above: Glucose result great er than or equal to 200 mg/dLsuggests DIABETES MELLITUS per A.D.A. criteria. Potassium [Moles/Vol] 5.3 mmol/L 3.5-5.1 [facility] Work Phone: Protein [Mass/Vol] 6.9 g/dL 6.4-8.2 [facility] Work Phone: Sodium [Moles/Vol] 133 mmol/L 136-145 [facility] Work Phone: Laboratory - Chemistry and C hemistry - challengeon 01-06-2022 ALP [Catalytic activity/Vol] 149 U/L 45-117 [facility] Work Phone: ALT [Catalytic activity/Vol] 37 U/L 16-61 [facility] Work Phone: CO2 [Moles/Vol] 26.0 mmol/L 21.0-32.0 [facility] Work Phone: Globulin (S) [Mass/Vol] 4.0 g/dL 2.2-4.2 [facility] Work Phone: Urea nitrogen/Creatinine [Mass ratio] 23.8 mg/mg 10-20 [facility] Work Phone: No Panel Informationon 01-06 Estimated GFR (MDRD) Amer 49 mL/min >60 [facility] Work Phone: Comment on above: GFR Calc Estimated GFR (MDRD) Non-Af Amer 40 mL/min >60 [facility] Work Phone: Comment on above: Non- GFR Calc Urine Microalbumin/Creatinine Ratio 757.8 mg/g CRE <30 [facility] Work Phone: Serum or plasma albumin tiera urement (mass/volume)on 01-06-2022 Albumin [Mass/Vol] 2.9 g/dL 3.2-5.0 [facility] Work Phone: Serum or plasma albumin/glob ulin mass ratioon 01-06-2022 Albumin/Globulin [Mass ratio] 0.7 {ratio} 0.9-2.4 [facility] Work Phone: Serum or plasma calcium tiera urement (mass/volume)on 01-06-2022 Calcium [Mass/Vol] 9.0 mg/dL 8.5-10.1 [facility] Work Phone: Serum or plasma creatinine m easurement (mass/volume)on 01-06-2022 Creatinine [Mass/Vol] 1.81 mg/dL 0.70-1.30 [facility] Work Phone: Comment on above: The validity of the calculated GFR & GFRAA in patients over 70 years has not been determined. Clinical correlation is essential. Serum or plasma urea nitroge n measurement (mass/volume)on 01-06-2022 Urea nitrogen [Mass/Vol] 43 mg/dL 7-18 [facility] Work Phone: Thin prep Papanicolaou smear with manual screeningon 01-06-2022 Thin prep Papanicolaou smear with manual screening 18 U/L 15-37 [facility] Work Phone: Thin prep Papanicolaou smear with manual screening 7 5-15 [facility] Work Phone: Thin prep Papanicolaou smear with manual screening 488.0 mg/L NO RANGE EST. [facility] Work Phone: Urine creatinine measurement (mass/volume)on 01-06-2022 Creatinine (U) [Mass/Vol] 64.40 mg/dL NO RANGE EST. [facility] Work Phone: Basophil percentageon 2021 Chloride [Moles/Vol] 98 mmol/L 98-107 [facility] Work Phone: Glucose [Mass/Vol] 300 mg/dL 74-106 [facility] Work Phone: Comment on above: Glucose result great er than or equal to 200 mg/dLsuggests DIABETES MELLITUS per A.D.A. criteria. Potassium [Moles/Vol] 5.2 mmol/L 3.5-5.1 [facility] Work Phone: Sodium [Moles/Vol] 134 mmol/L 136-145 [facility] Work Phone: Laboratory - Chemistry and C hemistry - challengeon 01-01-2022 CO2 [Moles/Vol] 29.0 mmol/L 21.0-32.0 [facility] Work Phone: Urea nitrogen/Creatinine [Mass ratio] 21.7 mg/mg 10-20 [facility] Work Phone: No Panel Informationon 01-01 Estimated GFR (MDRD) Amer 60 mL/min >60 [facility] Work Phone: Comment on above: GFR Calc Estimated GFR (MDRD) Non-Af Amer 50 mL/min >60 [facility] Work Phone: Comment on above: Non- GFR Calc Serum or plasma calcium tiera urement (mass/volume)on 01-01-2022 Calcium [Mass/Vol] 9.3 mg/dL 8.5-10.1 [facility] Work Phone: Serum or plasma creatinine m easurement (mass/volume)on 01-01-2022 Creatinine [Mass/Vol] 1.52 mg/dL 0.70-1.30 [facility] Work Phone: Comment on above: The validity of the calculated GFR & GFRAA in patients over 70 years has not been determined. Clinical correlation is essential. Serum or plasma urea nitroge n measurement (mass/volume)on 01-01-2022 Urea nitrogen [Mass/Vol] 33 mg/dL 7-18 [facility] Work Phone: Thin prep Papanicolaou smear with manual screeningon 01-01-2022 Thin prep Papanicolaou smear with manual screening 7 5-15 [facility] Work Phone: Basophil percentageon 2021 Bilirubin [Mass/Vol] 0.30 mg/dL 0.20-1.00 [facility] Work Phone: Comment on above: For patients on eltr ombopag therapy, use of Dimension [place] TBIL is not recommended. Chloride [Moles/Vol] 102 mmol/L 98-107 [facility] Work Phone: Cholesterol [Mass/Vol] 227 mg/dL <200 [facility] Work Phone: Comment on above: <200 mg/dL Desirable 200-240 mg/dL Borderline >240 mg/dL High Risk Glucose [Mass/Vol] 223 mg/dL 74-106 [facility] Work Phone: Comment on above: Glucose result great er than or equal to 200 mg/dLsuggests DIABETES MELLITUS per A.D.A. criteria. Potassium [Moles/Vol] 5.2 mmol/L 3.5-5.1 [facility] Work Phone: Protein [Mass/Vol] 7.0 g/dL 6.4-8.2 [facility] Work Phone: Sodium [Moles/Vol] 132 mmol/L 136-145 [facility] Work Phone: Triglyceride [Mass/Vol] 98 mg/dL <199 [facility] Work Phone: Comment on above: The drugs N-Acetylcy steine and Metamizole may falsely depress this assay.Serum Triglycerides Reference Interval Normal <150 mg/dL Borderline high 150 - 199 mg/dL High 200 - 499 mg/dL Very High > or = 500 mg/dL Laboratory - Chemistry and C hemistry - challengeon 12-29-2021 ALP [Catalytic activity/Vol] 169 U/L 45-117 [facility] Work Phone: ALT [Catalytic activity/Vol] 53 U/L 16-61 [facility] Work Phone: CO2 [Moles/Vol] 25.0 mmol/L 21.0-32.0 [facility] Work Phone: Globulin (S) [Mass/Vol] 4.0 g/dL 2.2-4.2 [facility] Work Phone: Urea nitrogen/Creatinine [Mass ratio] 15.5 mg/mg 10-20 [facility] Work Phone: No Panel Informationon 12-29 Estimated GFR (MDRD) Amer 56 mL/min >60 [facility] Work Phone: Comment on above: GFR Calc Estimated GFR (MDRD) Non-Af Amer 46 mL/min >60 [facility] Work Phone: Comment on above: Non- GFR Calc Thyroid Stimulating Hormone (TSH) 2.54 uIU/mL 0.358-3.74 [facility] Work Phone: Serum or plasma albumin tiera urement (mass/volume)on 12-29-2021 Albumin [Mass/Vol] 3.0 g/dL 3.2-5.0 [facility] Work Phone: Serum or plasma albumin/glob ulin mass ratioon 12-29-2021 Albumin/Globulin [Mass ratio] 0.8 {ratio} 0.9-2.4 [facility] Work Phone: Serum or plasma calcium tiera urement (mass/volume)on 12-29-2021 Calcium [Mass/Vol] 8.8 mg/dL 8.5-10.1 [facility] Work Phone: Serum or plasma cholesterol in HDL measurement (mass/volume)on 12-29-2021 Cholesterol in HDL [Mass/Vol] 67 mg/dL >40 [facility] Work Phone: Comment on above: The drugs N-Acetylcy steine and Metamizole may falsely depress this assay. Reference Range HDL <40 mg/dL Low HDL Cholesterol HDL >or= 60 mg/dL High HDL Cholesterol Serum or plasma cholesterol in VLDL measurement (mass/volume)on 12-29-2021 Cholesterol in VLDL [Mass/Vol] 20 mg/dL 5-40 [facility] Work Phone: Serum or plasma creatinine m easurement (mass/volume)on 12-29-2021 Creatinine [Mass/Vol] 1.61 mg/dL 0.70-1.30 [facility] Work Phone: Comment on above: The validity of the calculated GFR & GFRAA in patients over 70 years has not been determined. Clinical correlation is essential. Serum or plasma low density lipoprotein (LDL) cholesterol measurement (mass/volume)on 12-29-2021 Cholesterol in LDL [Mass/Vol] 140 mg/dL 0-130 [facility] Work Phone: Serum or plasma urea nitroge n measurement (mass/volume)on 12-29-2021 Urea nitrogen [Mass/Vol] 25 mg/dL 7-18 [facility] [facility] Work Phone: Thin prep Papanicolaou smear with manual screeningon 12-29-2021 Thin prep Papanicolaou smear with manual screening 28 U/L 15-37 [facility] Work Phone: Thin prep Papanicolaou smear with manual screening 5 5-15 [facility] Work Phone: Thin prep Papanicolaou smear with manual screening 1640.0 mg/L NO RANGE EST. [facility] Work Phone: Whole blood hemoglobin A1c/t otal hemoglobin ratio (mass fraction)on 12-29-2021 HbA1c (Bld) [Mass fraction] 9.1 % 3.8-5.6 [facility] Work Phone: Comment on above: Normal < 5.7 % Predi abetic 5.7 - 6.4 % Diabetic >or= 6.5 % Please note range changes. Basophil percentageon 2021 Bilirubin [Mass/Vol] 0.30 mg/dL 0.20-1.00 [facility] Work Phone: Comment on above: For patients on eltr ombopag therapy, use of Dimension [place] TBIL is not recommended. Chloride [Moles/Vol] 101 mmol/L 98-107 [facility] Work Phone: Cholesterol [Mass/Vol] 274 mg/dL <200 [facility] Work Phone: Comment on above: <200 mg/dL Desirable 200-240 mg/dL Borderline >240 mg/dL High Risk Glucose [Mass/Vol] 195 mg/dL 74-106 [facility] Work Phone: Comment on above: Fasting Glucose resu lt greater than or equal to 126 mg/dL suggests DIABETES MELLITUS per A.D.A. criteria. Potassium [Moles/Vol] 5.0 mmol/L 3.5-5.1 [facility] Work Phone: Protein [Mass/Vol] 7.0 g/dL 6.4-8.2 [facility] Work Phone: Sodium [Moles/Vol] 136 mmol/L 136-145 [facility] Work Phone: Triglyceride [Mass/Vol] 98 mg/dL <199 [facility] Work Phone: Comment on above: The drugs N-Acetylcy steine and Metamizole may falsely depress this assay.Serum Triglycerides Reference Interval Normal <150 mg/dL Borderline high 150 - 199 mg/dL High 200 - 499 mg/dL Very High > or = 500 mg/dL Laboratory - Chemistry and C hemistry - challengeon 10-30-2021 ALP [Catalytic activity/Vol] 141 U/L 45-117 [facility] Work Phone: ALT [Catalytic activity/Vol] 31 U/L 16-61 [facility] Work Phone: CO2 [Moles/Vol] 29.0 mmol/L 21.0-32.0 [facility] Work Phone: Globulin (S) [Mass/Vol] 4.1 g/dL 2.2-4.2 [facility] Work Phone: Urea nitrogen/Creatinine [Mass ratio] 15.8 mg/mg 10-20 [facility] Work Phone: No Panel Informationon 10-30 Estimated GFR (MDRD) Amer 70 mL/min >60 [facility] Work Phone: Comment on above: GFR Calc Estimated GFR (MDRD) Non-Af Amer 58 mL/min >60 [facility] Work Phone: Comment on above: Non- GFR Calc Thyroid Stimulating Hormone (TSH) 1.07 uIU/mL 0.358-3.74 [facility] Work Phone: Urine Microalbumin/Creatinine Ratio 3362.3 mg/g CRE <30 [facility] Work Phone: Serum or plasma albumin tiera urement (mass/volume)on 10-30-2021 Albumin [Mass/Vol] 2.9 g/dL 3.2-5.0 [facility] Work Phone: Serum or plasma albumin/glob ulin mass ratioon 10-30-2021 Albumin/Globulin [Mass ratio] 0.7 {ratio} 0.9-2.4 [facility] Work Phone: Serum or plasma calcium tiera urement (mass/volume)on 10-30-2021 Calcium [Mass/Vol] 8.5 mg/dL 8.5-10.1 [facility] Work Phone: Serum or plasma cholesterol in HDL measurement (mass/volume)on 10-30-2021 Cholesterol in HDL [Mass/Vol] 63 mg/dL >40 [facility] Work Phone: Comment on above: The drugs N-Acetylcy steine and Metamizole may falsely depress this assay. Reference Range HDL <40 mg/dL Low HDL Cholesterol HDL >or= 60 mg/dL High HDL Cholesterol Serum or plasma cholesterol in VLDL measurement (mass/volume)on 10-30-2021 Cholesterol in VLDL [Mass/Vol] 20 mg/dL 5-40 [facility] Work Phone: Serum or plasma creatinine m easurement (mass/volume)on 10-30-2021 Creatinine [Mass/Vol] 1.33 mg/dL 0.70-1.30 [facility] Work Phone: Comment on above: The validity of the calculated GFR & GFRAA in patients over 70 years has not been determined. Clinical correlation is essential. Serum or plasma low density lipoprotein (LDL) cholesterol measurement (mass/volume)on 10-30-2021 Cholesterol in LDL [Mass/Vol] 191 mg/dL 0-130 [facility] Work Phone: Serum or plasma urea nitroge n measurement (mass/volume)on 10-30-2021 Urea nitrogen [Mass/Vol] 21 mg/dL 7-18 [facility] Work Phone: Thin prep Papanicolaou smear with manual screeningon 10-30-2021 Thin prep Papanicolaou smear with manual screening 21 U/L 15-37 [facility] Work Phone: Thin prep Papanicolaou smear with manual screening 6 5-15 [facility] Work Phone: Thin prep Papanicolaou smear with manual screening 1160.0 mg/L NO RANGE EST. [facility] Work Phone: Urine creatinine measurement (mass/volume)on 10-30-2021 Creatinine (U) [Mass/Vol] 34.50 mg/dL NO RANGE EST. [facility] Work Phone: Whole blood hemoglobin A1c/t otal hemoglobin ratio (mass fraction)on 10-30-2021 HbA1c (Bld) [Mass fraction] 9.4 % 3.8-5.6 [facility] Work Phone: Comment on above: Normal < 5.7 % Predi abetic 5.7 - 6.4 % Diabetic >or= 6.5 % Please note range changes. 24 hour urine alpha 2 globul in/total protein ratio by electrophoresis (mass fraction)on 06-08-2021 Alpha 2 globulin Elph (24H U) [Mass fraction] 5.0 % [facility] Work Phone: 24 hour urine beta globulin/ total protein ratio by electrophoresis (mass fraction)on 06-08-2021 Beta globulin Elph (24H U) [Mass fraction] 12.3 % [facility] Work Phone: 24 hour urine gamma globulin /total protein ratio by electrophoresis (mass fraction)on 06-08-2021 Gamma globulin Elph (24H U) [Mass fraction] 6.8 % [facility] Work Phone: Basophil percentageon 2021 Bilirubin [Mass/Vol] 0.40 mg/dL 0.20-1.00 [facility] Work Phone: Comment on above: For patients on eltr ombopag therapy, use of Dimension [place] TBIL is not recommended. Chloride [Moles/Vol] 101 mmol/L 98-107 [facility] Work Phone: Glucose [Mass/Vol] 110 mg/dL 74-106 [facility] Work Phone: Comment on above: Fasting Glucose resu lt from 100 to 125 mg/dL suggests IMPAIRED HOMEOSTASIS per A.D.A. criteria. Potassium [Moles/Vol] 4.0 mmol/L 3.5-5.1 [facility] Work Phone: Protein [Mass/Vol] 7.5 g/dL 6.4-8.2 [facility] Work Phone: Sodium [Moles/Vol] 134 mmol/L 136-145 [facility] Work Phone: Direct bilirubinon 2 Bilirubin.direct [Mass/Vol] 0.08 mg/dL 0.00-0.30 [facility] Work Phone: Laboratory - Chemistry and C hemistry - challengeon 06-08-2021 Albumin [Mass/Vol] 3.4 g/dL [facility] Work Phone: ALP [Catalytic activity/Vol] 145 U/L 45-117 [facility] Work Phone: ALT [Catalytic activity/Vol] 41 U/L 16-61 [facility] Work Phone: Amylase [Catalytic activity/Vol] 39 U/L 15-85 [facility] Work Phone: CO2 [Moles/Vol] 27.0 mmol/L 21.0-32.0 [facility] Work Phone: Globulin (S) [Mass/Vol] 4.3 g/dL 2.2-4.2 [facility] Work Phone: Urea nitrogen/Creatinine [Mass ratio] 16.8 mg/mg 10-20 [facility] Work Phone: No Panel Informationon 06-08 Addendum Document Comment [facility] Work Phone: Comment on above: The SPE pattern appe ars unremarkable. Evidence ofmonoclonal protein is not apparent. Zsvvz-6-Mwhqrpfhx 0.3 g/dL [facility] Work Phone: Upyss-6-Yixrzvlex 0.8 g/dL [facility] Work Phone: Anti-Nuclear Antibody Screen Negative Negative [facility] Work Phone: Comment on above: Performed at: [place] [id number] Director: Aaron Lay PhD, Phone: [phone] Estimated GFR (MDRD) Amer 64 mL/min >60 [facility] Work Phone: Comment on above: GFR Calc Estimated GFR (MDRD) Non-Af Amer 53 mL/min >60 [facility] Work Phone: Comment on above: Non- GFR Calc Gamma Globulins 1.1 g/dL [facility] Work Phone: Urine Immunofixation PEP Note Comment [facility] Work Phone: Comment on above: Protein electrophore sis scan will follow via computer,mail, or fence erector delivery. Protein Fractions Elph [Inte rp]on 06-08-2021 Protein Fractions [Interp] Comment [facility] Work Phone: Comment on above: Protein electrophore sis scan will follow via computer,mail, or fence erector delivery. Serum albumin to globulin ra dwaine by protein electrophoresison 06-08-2021 Albumin/Globulin Elph [Mass ratio] 1.0 [facility] Work Phone: Serum globulin measurement ( mass/volume)on 06-08-2021 Globulin (S) [Mass/Vol] 3.5 g/dL [facility] Work Phone: Serum mitochondria antibody detectionon 06-08-2021 Mitochondria Ab Ql (S) <20.0 Units [facility] Work Phone: Comment on above: Negative 0.0 - 20.0 Equivocal 20.1 - 24.9 Positive >24.9Mitochondrial (M2) Antibodies are found in 90-96% ofpatients with primary biliary cirrhosis. Serum or plasma albumin tiera urement (mass/volume)on 06-08-2021 Albumin [Mass/Vol] 3.2 g/dL 3.2-5.0 [facility] Work Phone: Serum or plasma beta globuli n measurement by electrophoresis (mass/volume)on 06-08-2021 Beta globulin Elph [Mass/Vol] 1.3 g/dL [facility] Work Phone: Serum or plasma bone alkalin e phosphatase/total alkaline phosphatase ratio (catalyticon 06-08-2021 ALP Bone [Catalytic fraction] 28 % [facility] Work Phone: Serum or plasma calcium tiera urement (mass/volume)on 06-08-2021 Calcium [Mass/Vol] 8.7 mg/dL 8.5-10.1 [facility] Work Phone: Serum or plasma creatinine m easurement (mass/volume)on 06-08-2021 Creatinine [Mass/Vol] 1.43 mg/dL 0.70-1.30 [facility] Work Phone: Comment on above: The validity of the calculated GFR & GFRAA in patients over 70 years has not been determined. Clinical correlation is essential. Serum or plasma ferritin rashmi surement (mass/volume)on 06-08-2021 Ferritin [Mass/Vol] 140 ng/mL 26-388 [facility] Work Phone: Serum or plasma intestinal a lkaline phosphatase/total alkaline phosphatase ratio (jabari 06-08-2021 ALP Intest [Catalytic fraction] 30 % [facility] Work Phone: Comment on above: Intestinal alkaline [...] is an erosiveor ulcerative mucosal lesion.Performed at: [facility] [id number] Director: Aaron Lay PhD, Phone: [phone] Serum or plasma liver alkali ne phosphatase/total alkaline phosphatase ratio (catalytion 06-08-2021 ALP Liver [Catalytic fraction] 42 % [facility] Work Phone: Serum or plasma urea nitroge n measurement (mass/volume)on 06-08-2021 Urea nitrogen [Mass/Vol] 24 mg/dL 7-18 [facility] Work Phone: Thin prep Papanicolaou smear with manual screeningon 06-08-2021 Thin prep Papanicolaou smear with manual screening 22 U/L 15-37 [facility] Work Phone: Thin prep Papanicolaou smear with manual screening 6 5-15 [facility] Work Phone: Thin prep Papanicolaou smear with manual screening See comment [facility] Work Phone: Comment on above: Result: Not Observed Thin prep Papanicolaou smear with manual screening 151 IU/L [facility] Work Phone: Total protein bloodon 2021 Protein [Mass/Vol] 6.9 g/dL [facility] Work Phone: Urine albumin/total protein mass ratio by electrophoresison 06-08-2021 Albumin Elph (U) [Mass fraction] 71.2 % [facility] Work Phone: Urine alpha 1 globulin/total protein ratio by electrophoresis (mass fraction)on 06-08-2021 Alpha 1 globulin Elph (U) [Mass fraction] 4.7 % [facility] Work Phone: Urine monoclonal protein/tot al protein mass ratio by electrophoresison 06-08-2021 Protein.monoclonal Elph (U) [Mass fraction] See comment [facility] Work Phone: Comment on above: Result: Not Observed Urine protein measurement (m ass/volume)on 06-08-2021 Protein (U) [Mass/Vol] 154.5 mg/dL Not Estab. [facility] Work Phone: 24 hour urine alpha 2 globul in/total protein ratio by electrophoresis (mass fraction)on 04-11-2021 Alpha 2 globulin Elph (24H U) [Mass fraction] 3.6 % [facility] Work Phone: 24 hour urine beta globulin/ total protein ratio by electrophoresis (mass fraction)on 04-11-2021 Beta globulin Elph (24H U) [Mass fraction] 10.8 % [facility] Work Phone: 24 hour urine gamma globulin /total protein ratio by electrophoresis (mass fraction)on 04-11-2021 Gamma globulin Elph (24H U) [Mass fraction] 4.9 % [facility] Work Phone: Basophil percentageon 2021 Bilirubin [Mass/Vol] 0.40 mg/dL 0.20-1.00 [facility] Work Phone: Comment on above: For patients on eltr ombopag therapy, use of Dimension [place] TBIL is not recommended. Chloride [Moles/Vol] 102 mmol/L 98-107 [facility] Work Phone: Glucose [Mass/Vol] 130 mg/dL 74-106 [facility] Work Phone: Comment on above: Fasting Glucose resu lt greater than or equal to 126 mg/dL suggests DIABETES MELLITUS per A.D.A. criteria. Potassium [Moles/Vol] 5.0 mmol/L 3.5-5.1 [facility] Work Phone: Protein [Mass/Vol] 7.1 g/dL 6.4-8.2 [facility] Work Phone: Sodium [Moles/Vol] 136 mmol/L 136-145 [facility] Work Phone: Laboratory - Chemistry and C hemistry - challengeon 04-11-2021 Albumin [Mass/Vol] 3.3 g/dL [facility] Work Phone: ALP [Catalytic activity/Vol] 151 U/L 45-117 [facility] Work Phone: ALT [Catalytic activity/Vol] 27 U/L 16-61 [facility] Work Phone: CO2 [Moles/Vol] 28.0 mmol/L 21.0-32.0 [facility] Work Phone: Globulin (S) [Mass/Vol] 4.2 g/dL 2.2-4.2 [facility] Work Phone: Urea nitrogen/Creatinine [Mass ratio] 16.2 mg/mg 10-20 [facility] Work Phone: No Panel Informationon 04-11 Addendum Document Comment [facility] Work Phone: Comment on above: The SPE pattern appe ars unremarkable. Evidence ofmonoclonal protein is not apparent. Rozqn-9-Koiduozcz 0.2 g/dL [facility] Work Phone: Pyfqm-2-Iyjuprjbf 0.8 g/dL [facility] Work Phone: Estimated GFR (MDRD) Amer 65 mL/min >60 [facility] Work Phone: Comment on above: GFR Calc Estimated GFR (MDRD) Non-Af Amer 54 mL/min >60 [facility] Work Phone: Comment on above: Non- GFR Calc Gamma Globulins 1.1 g/dL [facility] Work Phone: Urine Immunofixation PEP Note Comment [facility] Work Phone: Comment on above: Protein electrophore sis scan will follow via computer,mail, or fence erector delivery. Protein Fractions Elph [Inte rp]on 04-11-2021 Protein Fractions [Interp] Comment [facility] Work Phone: Comment on above: Protein electrophore sis scan will follow via computer,mail, or fence erector delivery. Serum albumin to globulin ra dwaine by protein electrophoresison 04-11-2021 Albumin/Globulin Elph [Mass ratio] 1.0 [facility] Work Phone: Serum globulin measurement ( mass/volume)on 04-11-2021 Globulin (S) [Mass/Vol] 3.4 g/dL [facility] Work Phone: Serum or plasma albumin tiera urement (mass/volume)on 04-11-2021 Albumin [Mass/Vol] 2.9 g/dL 3.2-5.0 [facility] Work Phone: Serum or plasma albumin/glob ulin mass ratioon 04-11-2021 Albumin/Globulin [Mass ratio] 0.7 {ratio} 0.9-2.4 [facility] Work Phone: Serum or plasma beta globuli n measurement by electrophoresis (mass/volume)on 04-11-2021 Beta globulin Elph [Mass/Vol] 1.3 g/dL [facility] Work Phone: Serum or plasma bone alkalin e phosphatase/total alkaline phosphatase ratio (catalyticon 04-11-2021 ALP Bone [Catalytic fraction] 30 % [facility] Work Phone: Serum or plasma calcium tiera urement (mass/volume)on 04-11-2021 Calcium [Mass/Vol] 9.1 mg/dL 8.5-10.1 oste r [facility] Work Phone: Serum or plasma creatinine m easurement (mass/volume)on 04-11-2021 Creatinine [Mass/Vol] 1.42 mg/dL 0.70-1.30 [facility] Work Phone: Comment on above: The validity of the calculated GFR & GFRAA in patients over 70 years has not been determined. Clinical correlation is essential. Serum or plasma intestinal a lkaline phosphatase/total alkaline phosphatase ratio (jabari 04-11-2021 ALP Intest [Catalytic fraction] 18 % [facility] Work Phone: Comment on above: Intestinal alkaline [...] is an erosiveor ulcerative mucosal lesion.Performed at: [address] [id number] Director: Aaron Lay PhD, Phone: [phone] Serum or plasma liver alkali ne phosphatase/total alkaline phosphatase ratio (catalytion 04-11-2021 ALP Liver [Catalytic fraction] 53 % [facility] Work Phone: Serum or plasma urea nitroge n measurement (mass/volume)on 04-11-2021 Urea nitrogen [Mass/Vol] 23 mg/dL 7-18 [facility] Work Phone: Thin prep Papanicolaou smear with manual screeningon 04-11-2021 Thin prep Papanicolaou smear with manual screening 16 U/L 15-37 [facility] Work Phone: Thin prep Papanicolaou smear with manual screening 6 5-15 [facility] Work Phone: Thin prep Papanicolaou smear with manual screening See comment [facility] Work Phone: Comment on above: Result: Not Observed Thin prep Papanicolaou smear with manual screening 150 IU/L [facility] Work Phone: Total protein bloodon 2021 Protein [Mass/Vol] 6.7 g/dL [facility] Work Phone: Urine albumin/total protein mass ratio by electrophoresison 04-11-2021 Albumin Elph (U) [Mass fraction] 74.2 % [facility] Work Phone: Urine alpha 1 globulin/total protein ratio by electrophoresis (mass fraction)on 04-11-2021 Alpha 1 globulin Elph (U) [Mass fraction] 6.6 % [facility] Work Phone: Urine monoclonal protein/tot al protein mass ratio by electrophoresison 04-11-2021 Protein.monoclonal Elph (U) [Mass fraction] See comment [facility] Work Phone: Comment on above: Result: Not Observed Urine protein measurement (m ass/volume)on 04-11-2021 Protein (U) [Mass/Vol] 146.3 mg/dL Not Estab. [facility] Work Phone: CT CERVICAL SPINE W/O CONTRA STon 11-06-2020 CT CERVICAL SPINE W/O CONTRAST [facility] [address] [place], [place] [id number] Diagnostic Imaging Report : [id number] Signed Name: OLIVIER MENDOZA MRUN: [id number] : 1960 Loc: ED Age / Sex: 59 / M ADM Status: REG ER ADM Date: 11/06/20 Room/Bed: Ordering Physician: Laci Pitts PA-C Procedure: CT CERVICAL SPINE W/O CONTRAST Order Number(s): [id number] Ordered Date: 11/06/20 Ordered Time: 1610 EXAMINATION: [...] 11/06/20 1739 Transcribed Date/Time: 11/06/20 1736 Normal [facility] CT CHEST ABD PELVIS W/O CONo n 11-06-2020 CT CHEST ABD PELVIS W/O [facility] [address] [place] [address] Diagnostic Imaging Report : [id number] Signed [facility]: [id number] MRUN: [id number] : 1960 Loc: ED Age / Sex: 59 / M ADM Status: REG ER ADM Date: 11/06/20 Room/Bed: Ordering Physician: Laci Pitts PA-C Procedure: CT CHEST ABD PELVIS W/O CON Order Number(s): [id number] Ordered Date: 11/06/20 Ordered Time: 1610 EXAMINATION: [...] 11/06/20 1758 Transcribed Date/Time: 11/06/20 175 Normal [facility] CT HEAD W/O CONTRASTon 11-06 CT HEAD W/O CONTRAST [facility] [address] [place] [address] Diagnostic Imaging Report : [id number] Signed [facility]: [id number] MRUN: [id number] : 1960 Loc: ED Age / Sex: 59 / M ADM Status: REG ER ADM Date: 11/06/20 Room/Bed: Ordering Physician: Laci Pitts PA-C Procedure: CT HEAD W/O CONTRAST Order Number(s): [id number] Ordered Date: 11/06/20 Ordered Time: 161 EXAMINATION: [...] 11/06/20 173 Transcribed Date/Time: 11/06/20 172 Normal [facility] ED Physician Documentationon 11-06-2020 ED Physician Documentation [address] [place] [address] Physician Documentation Signed: Name: OLIVIER MENDOZA MRUN: [id number] : 1960 Loc: ED Age / Sex: [...] Contusion, Rib, ED Contusion, Lower Extremity Referrals: [facility] [Provider Group] - Call For [...] Patient repo (more content not included)... Normal [facility] LIPASEon 11-06-2020 Lipase [Catalytic activity/Vol] 29 U/L Normal 23-300 [facility] Comment on above: Performed By: #### L IPA 1, PT, PTT #### Main Lab - [facility] [address] [place] [address] PARTIAL THROMBOPLASTIN TIMEo n 11-06-2020 aPTT Coag (Bld) [Time] 24.8 s Normal 24.1-41.2 [facility] Comment on above: Performed By: #### L IPA 1, PT, PTT #### Main Lab - [facility] [address] [place] [address] PT WITH INRon 11-06-2020 INR Coag (PPP) [Relative time] 1.0 {INR} Normal [facility] Comment on above: Result Comment: DYANA MMENDED RANGES FOR INR: Therapeutic range for standard therapy INR: 2.0-3.0 Therapeutic range for high dose therapy INR: 2.5-3.5 Performed By: #### L IPA 1, PT, PTT #### Main Lab - [facility] [place], [place] [address] PT Coag (PPP) [Time] 13.1 s Normal 11.3-14.8 [facility] Comment on above: Performed By: #### L IPA 1, PT, PTT #### Main Lab - [facility] [address] [place] [address] Waveform Imaging Reporton Waveform Imaging Report [facility] [address] [place] [id number] Waveform Imaging Report : [id number] Signed Name: OLIVIER MENDOZA MRUN: [id number] : 1960 Loc: ED Age / Sex: 59 / M ADM Status: REG ER ADM Date: 11/06/20 Room/Bed: Ordering Physician: Laci Pitts PA-C Procedure: EKG Order Number(s): [id number] Ordered Date: 11/06/20 Ordered Time: 1611 Test Date: 2020-11-06 16:24:52 Pat Name: OLIVIER MENDOZA Department: ED Room: Gender: M [employer]: : 1960 Requested By: Laci Bragg Order Number: [id number] MD: Darryl Chen Measurements Intervals Arp Rate: 73 P: 141 SD: 164 QRS: 44 QRSD: 90 T: 105 [...] Signed Date/Time: 11/06/20 1744 Transcribed Date/Time: Normal [facility] XR FEMUR, LEFTon 11-06-2020 XR FEMUR, LEFT [facility] [address] [place] [id number] Diagnostic Imaging Report : [id number] Signed Name: OLIVIER MENDOZA MRUN: [id number] : 1960 Loc: ED Age / Sex: 59 / M ADM Status: REG ER ADM Date: 11/06/20 Room/Bed: Ordering Physician: Laci Pitts PA-C Procedure: XR FEMUR, LEFT Order Number(s): [id number] Ordered Date: 11/06/20 Ordered Time: 1613 EXAMINATION: [...] MD Dictated Date/Time: 11/06/20 173 Signed By: Augs Eugene MD, MD Signed Date/Time: 11/06/20 174 Transcribed Date/Time: 11/06/20 173 Normal [facility] Vital Signs Date Time Vital Sign Value Performing Clinician [facility] 12-17-2024 14:41-0400 Body height 170.[address] Sherice Avendano MD Work Phone: [facility] 12-17-2024 14:41-0400 Body mass index (BMI) [Ratio] 25.9 kg/m2 Dr. Sherice Avendano MD Work Phone: [facility] 12-17-2024 14:41-0400 Body temperature 98.2 [degF] Dr. Sherice Avendano MD Work Phone: [facility] 12-17-2024 14:41-0400 Body weight 75.[address] Sherice Avendano MD Work Phone: [facility] 12-17-2024 14:41-0400 Diastolic blood pressure 100 mm[Hg] Dr. Sherice Avendano MD Work Phone: [facility] 12-17-2024 14:41-0400 Heart rate 81 /min Dr. Sherice Avendano MD Work Phone: [facility] 12-17-2024 14:41-0400 Respiratory rate 16 /min Dr. Sherice Avendano MD Work Phone: [facility] 12-17-2024 14:41-0400 SaO2% (BldA) [Mass fraction] 93 % Dr. Sherice Avendano MD Work Phone: [facility] 12-17-2024 14:41-0400 Systolic blood pressure 168 mm[Hg] Dr. Sherice Avendano MD Work Phone: [facility] 11-26-2024 10:04-0400 Body height 170.[address] Sherice Avendano MD Work Phone: [facility] 11-26-2024 10:03-0400 Body mass index (BMI) [Ratio] 25.3 kg/m2 Dr. Sherice Avendano MD Work Phone: [facility] 11-26-2024 10:03-0400 Body weight 73.[address] Sherice Avendano MD Work Phone: [facility] 11-26-2024 10:03-0400 Diastolic blood pressure 74 mm[Hg] Dr. Sherice Avendano MD Work Phone: [facility] 11-26-2024 10:03-0400 Heart rate 45 /min Dr. Sherice Avendano MD Work Phone: [facility] 11-26-2024 10:03-0400 Respiratory rate 16 /min Dr. Sherice Avendano MD Work Phone: [facility] 11-26-2024 10:03-0400 SaO2% (BldA) [Mass fraction] 98 % Dr. Sherice Avendano MD Work Phone: [facility] 11-26-2024 10:03-0400 Systolic blood pressure 152 mm[Hg] Dr. Sherice Avendano MD Work Phone: [facility] 10-28-2024 09:40-0400 Body height 170.[address] Sherice Avendano MD Work Phone: [facility] 10-28-2024 09:40-0400 Body mass index (BMI) [Ratio] 25.2 kg/m2 Dr. Sherice Avendano MD Work Phone: [facility] 10-28-2024 09:40-0400 Body temperature 96.3 [degF] Dr. Sherice Avendano MD Work Phone: [facility] 10-28-2024 09:40-0400 Body weight 73.[address] Sherice Avendano MD Work Phone: [facility] 10-28-2024 09:40-0400 Diastolic blood pressure 80 mm[Hg] Dr. Sherice Avendano MD Work Phone: [facility] 10-28-2024 09:40-0400 Heart rate 62 /min Dr. Sherice Avendano MD Work Phone: [facility] 10-28-2024 09:40-0400 Respiratory rate 16 /min Dr. Sherice Avendano MD Work Phone: [facility] 10-28-2024 09:40-0400 SaO2% (BldA) [Mass fraction] 99 % Dr. Sherice Avendano MD Work Phone: [facility] 10-28-2024 09:40-0400 Systolic blood pressure 146 mm[Hg] Dr. Sherice Avendano MD Work Phone: [facility] 08-26-2024 09:35-0400 Diastolic blood pressure 103 mm[Hg] Dr. Sherice Avendano MD Work Phone: [facility] 08-26-2024 09:35-0400 Heart rate 56 /min Dr. Sherice Avendano MD Work Phone: [facility] 08-26-2024 09:35-0400 Systolic blood pressure 224 mm[Hg] Dr. Sherice Avendano MD Work Phone: [facility] 08-26-2024 09:35-0400 SaO2% (BldA) [Mass fraction] 97 % Dr. Sherice Avendano MD Work Phone: [facility] 08-26-2024 09:11-0400 Body height 170.[address] Sherice Avendano MD Work Phone: [facility] 08-26-2024 09:11-0400 Body mass index (BMI) [Ratio] 25.8 kg/m2 Dr. Sherice Avendano MD Work Phone: [facility] 08-26-2024 09:11-0400 Body weight 74.[address] Sherice Avendano MD Work Phone: [facility] 08-26-2024 09:11-0400 Respiratory rate 16 /min Dr. Sherice Avendano MD Work Phone: [facility] 08-20-2024 11:06-0400 Body height 170.[address] Sherice Avendano MD Work Phone: [facility] 08-20-2024 11:06-0400 Body mass index (BMI) [Ratio] 26.4 kg/m2 Dr. Sherice Avendano MD Work Phone: [facility] 08-20-2024 11:06-0400 Body temperature 97.7 [degF] Dr. Sherice Avendano MD Work Phone: [facility] 08-20-2024 11:06-0400 Body weight 76.[address] Sherice Avendano MD Work Phone: [facility] 08-20-2024 11:06-0400 Diastolic blood pressure 100 mm[Hg] Dr. Sherice Avendano MD Work Phone: [facility] 08-20-2024 11:06-0400 Heart rate 65 /min Dr. Sherice Avendano MD Work Phone: [facility] 08-20-2024 11:06-0400 Respiratory rate 18 /min Dr. Sherice Avendano MD Work Phone: [facility] 08-20-2024 11:06-0400 SaO2% (BldA) [Mass fraction] 98 % Dr. Sherice Avendano MD Work Phone: [facility] 08-20-2024 11:06-0400 Systolic blood pressure 188 mm[Hg] Dr. Sherice Avendano MD Work Phone: [facility] 08-04-2024 17:39-0400 Body temperature 97.8 [degF] Dr. Sherice Avendano MD Work Phone: [facility] 08-04-2024 17:39-0400 Diastolic blood pressure 74 mm[Hg] Dr. Sherice Avendano MD Work Phone: [facility] 08-04-2024 17:39-0400 Heart rate 59 /min Dr. Sherice Avendano MD Work Phone: [facility] 08-04-2024 17:39-0400 Respiratory rate 21 /min Dr. Sherice Avendano MD Work Phone: [facility] 08-04-2024 17:39-0400 SaO2% (BldA) [Mass fraction] 99 % Dr. Sherice Avendano MD Work Phone: [facility] 08-04-2024 17:39-0400 Systolic blood pressure 151 mm[Hg] Dr. Sherice Avendano MD Work Phone: [facility] 08-04-2024 13:41-0400 Body height 170.[address] Sherice Avendano MD Work Phone: [facility] 08-04-2024 13:41-0400 Body mass index (BMI) [Ratio] 27 kg/m2 Dr. Sherice Avendano MD Work Phone: [facility] 08-04-2024 13:41-0400 Body weight 78.[address] Sherice Avendano MD Work Phone: [facility] 05-19-2024 09:21-0400 Body mass index (BMI) [Ratio] 27.6 kg/m2 Gennaro Fuentes CLINICAL DATA MANAGER-C Work Phone: [facility] 05-19-2024 09:21-0400 Body weight 79.83 kg Gennaro Fuentes CLINICAL DATA MANAGER-C Work Phone: [facility] 05-19-2024 09:21-0400 Diastolic blood pressure 99 mm[Hg] Gennaro Fuentes CLINICAL DATA MANAGER-C Work Phone: [facility] 05-19-2024 09:21-0400 Heart rate 70 /min Gennaro Fuentes CLINICAL DATA MANAGER-C Work Phone: [facility] 05-19-2024 09:21-0400 Respiratory rate 18 /min Gennaro Fuentes CLINICAL DATA MANAGER-C Work Phone: [facility] 05-19-2024 09:21-0400 SaO2% (BldA) [Mass fraction] 98 % Gennaro Fuentes CLINICAL DATA MANAGER-C Work Phone: [facility] 05-19-2024 09:21-0400 Systolic blood pressure 198 mm[Hg] Gennaro Fuentes CLINICAL DATA MANAGER-C Work Phone: [facility] 05-07-2024 13:35-0500 Body height 170.18 cm Gennaro Fuentes CLINICAL DATA MANAGER-C Work Phone: [facility] 05-07-2024 13:35-0500 Body mass index (BMI) [Ratio] 28 kg/m2 Gennaro Fuentes CLINICAL DATA MANAGER-C Work Phone: [facility] 05-07-2024 13:35-0500 Body temperature 97.3 [degF] Gennaro Fuentes CLINICAL DATA MANAGER-C Work Phone: [facility] 05-07-2024 13:35-0500 Body weight 81.19 kg Gennaro Fuentes CLINICAL DATA MANAGER-C Work Phone: [facility] 05-07-2024 13:35-0500 Diastolic blood pressure 84 mm[Hg] Gennaro Fuentes CLINICAL DATA MANAGER-C Work Phone: [facility] 05-07-2024 13:35-0500 Heart rate 77 /min Gennaro Fuentes CLINICAL DATA MANAGER-C Work Phone: [facility] 05-07-2024 13:35-0500 Respiratory rate 16 /min Gennaro Fuentes CLINICAL DATA MANAGER-C Work Phone: [facility] 05-07-2024 13:35-0500 SaO2% (BldA) [Mass fraction] 99 % Gennaro Fuentes CLINICAL DATA MANAGER-C Work Phone: [facility] 05-07-2024 13:35-0500 Systolic blood pressure 138 mm[Hg] Gennaro Fuentes CLINICAL DATA MANAGER-C Work Phone: [facility] 03-11-2024 14:19-0500 Body mass index (BMI) [Ratio] 28.3 kg/m2 Gennaro Fuentes CLINICAL DATA MANAGER-C Work Phone: [facility] 03-11-2024 14:19-0500 Body weight 82.1 kg Gennaro Fuentes CLINICAL DATA MANAGER-C Work Phone: [facility] 03-11-2024 14:19-0500 Diastolic blood pressure 103 mm[Hg] Gennaro Fuentes CLINICAL DATA MANAGER-C Work Phone: [facility] 03-11-2024 14:19-0500 Heart rate 66 /min Gennaro Fuentes CLINICAL DATA MANAGER-C Work Phone: [facility] 03-11-2024 14:19-0500 Respiratory rate 18 /min Gennaro Fuentes CLINICAL DATA MANAGER-C Work Phone: [facility] 03-11-2024 14:19-0500 SaO2% (BldA) [Mass fraction] 99 % Gennaro Fuentes CLINICAL DATA MANAGER-C Work Phone: [facility] 03-11-2024 14:19-0500 Systolic blood pressure 191 mm[Hg] Gennaro Fuentes CLINICAL DATA MANAGER-C Work Phone: [facility] 05-22-2023 09:20-0400 Body height 170.[address] Sherice Avendano Work Phone: [facility] 05-22-2023 09:20-0400 Body mass index (BMI) [Ratio] 27.8 kg/m2 Dr. Sherice Avendano Work Phone: [facility] 05-22-2023 09:20-0400 Body temperature 97.6 [degF] Dr. Sherice Avendano Work Phone: [facility] 05-22-2023 09:20-0400 Body weight 80.[address] Sherice Avendano Work Phone: [facility] 05-22-2023 09:20-0400 Diastolic blood pressure 76 mm[Hg] Dr. Sherice Avendano Work Phone: [facility] 05-22-2023 09:20-0400 Heart rate 77 /min Dr. Sherice Avendano Work Phone: [facility] 05-22-2023 09:20-0400 Respiratory rate 16 /min Dr. Sherice Avendano Work Phone: [facility] 05-22-2023 09:20-0400 SaO2% (BldA) [Mass fraction] 98 % Dr. Sherice Avendano Work Phone: [facility] 05-22-2023 09:20-0400 Systolic blood pressure 126 mm[Hg] Dr. Sherice Avendano Work Phone: [facility] 05-01-2023 08:06-0500 Body height 170.[address] Sherice Avendano Work Phone: [facility] 05-01-2023 08:06-0500 Body mass index (BMI) [Ratio] 27.3 kg/m2 Dr. Sherice Avendano Work Phone: [facility] 05-01-2023 08:06-0500 Body temperature 97.5 [degF] Dr. Sherice Avendano Work Phone: [facility] 05-01-2023 08:06-0500 Body weight 79.[address] Sherice Avendano Work Phone: [facility] 05-01-2023 08:06-0500 Diastolic blood pressure 78 mm[Hg] Dr. Sherice Avendano Work Phone: [facility] 05-01-2023 08:06-0500 Heart rate 64 /min Dr. Sherice Avendano Work Phone: [facility] 05-01-2023 08:06-0500 Respiratory rate 16 /min Dr. Sherice Avendano Work Phone: [facility] 05-01-2023 08:06-0500 SaO2% (BldA) [Mass fraction] 97 % Dr. Sherice Avendano Work Phone: [facility] 05-01-2023 08:06-0500 Systolic blood pressure 122 mm[Hg] Dr. Sherice Avendano Work Phone: [facility] 04-24-2023 10:04-0500 Body height 170.[address] Sherice Avendano Work Phone: [facility] 04-24-2023 10:04-0500 Body mass index (BMI) [Ratio] 28.3 kg/m2 Dr. Sherice Avendano Work Phone: [facility] 04-24-2023 10:04-0500 Body temperature 97.8 [degF] Dr. Sherice Avendano Work Phone: [facility] 04-24-2023 10:04-0500 Body weight 82.[address] Sherice Avendano Work Phone: [facility] 04-24-2023 10:04-0500 Diastolic blood pressure 76 mm[Hg] Dr. Sherice Avendano Work Phone: [facility] 04-24-2023 10:04-0500 Heart rate 50 /min Dr. Sherice Avendano Work Phone: [facility] 04-24-2023 10:04-0500 Respiratory rate 16 /min Dr. Sherice Avendano Work Phone: [facility] 04-24-2023 10:04-0500 SaO2% (BldA) [Mass fraction] 98 % Dr. Sherice Avendano Work Phone: [facility] 04-24-2023 10:04-0500 Systolic blood pressure 136 mm[Hg] Dr. Sherice Avendano Work Phone: [facility] 04-21-2023 09:26-0500 Body mass index (BMI) [Ratio] 28.8 kg/m2 Dr. Sherice Avendano Work Phone: [facility] 04-21-2023 09:26-0500 Body temperature 98 [degF] Dr. Sherice Avendano Work Phone: [facility] 04-21-2023 09:26-0500 Body weight 83.[address] Sherice Avendano Work Phone: [facility] 04-21-2023 09:26-0500 Diastolic blood pressure 72 mm[Hg] Dr. Sherice Avendano Work Phone: [facility] 04-21-2023 09:26-0500 Heart rate 78 /min Dr. Sherice Avendano Work Phone: [facility] 04-21-2023 09:26-0500 Respiratory rate 17 /min Dr. Sherice Avendano Work Phone: [facility] 04-21-2023 09:26-0500 SaO2% (BldA) [Mass fraction] 98 % Dr. Sherice Avendano Work Phone: [facility] 04-21-2023 09:26-0500 Systolic blood pressure 152 mm[Hg] Dr. Sherice Avendano Work Phone: [facility] 04-01-2023 10:43-0500 Body height 170.[address] Sherice Avendano Work Phone: [facility] 04-01-2023 10:43-0500 Body mass index (BMI) [Ratio] 28.3 kg/m2 Dr. Sherice Avendano Work Phone: [facility] 04-01-2023 10:43-0500 Body temperature 97.4 [degF] Dr. Sherice Avendano Work Phone: [facility] 04-01-2023 10:43-0500 Body weight 82.[address] Sherice Avendano Work Phone: [facility] 04-01-2023 10:43-0500 Diastolic blood pressure 76 mm[Hg] Dr. Sherice Avendano Work Phone: [facility] 04-01-2023 10:43-0500 Heart rate 64 /min Dr. Sherice Avendano Work Phone: [facility] 04-01-2023 10:43-0500 Respiratory rate 16 /min Dr. Sherice Avendano Work Phone: [facility] 04-01-2023 10:43-0500 SaO2% (BldA) [Mass fraction] 98 % Dr. Sherice Avendano Work Phone: [facility] 04-01-2023 10:43-0500 Systolic blood pressure 124 mm[Hg] Dr. Sherice Avendano Work Phone: [facility] 02-19-2023 08:37-0500 Body temperature 98.4 [degF] Dr. Sherice Avendano Work Phone: [facility] 02-19-2023 08:37-0500 Body weight 79.[address] Sherice Avendano Work Phone: [facility] 02-19-2023 08:37-0500 Diastolic blood pressure 92 mm[Hg] Dr. Sherice Avendano Work Phone: [facility] 02-19-2023 08:37-0500 Heart rate 79 /min Dr. Sherice Avendano Work Phone: [facility] 02-19-2023 08:37-0500 Respiratory rate 16 /min Dr. Sherice Avendano Work Phone: [facility] 02-19-2023 08:37-0500 SaO2% (BldA) [Mass fraction] 94 % Dr. Sherice Avendano Work Phone: [facility] 02-19-2023 08:37-0500 Systolic blood pressure 176 mm[Hg] Dr. Sherice Avendano Work Phone: [facility] 12-26-2022 09:27-0400 Body temperature 98.7 [degF] Dr. Sherice Avendano Work Phone: [facility] 12-26-2022 09:27-0400 Diastolic blood pressure 72 mm[Hg] Dr. Sherice Avendano Work Phone: [facility] 12-26-2022 09:27-0400 Heart rate 68 /min Dr. Sherice Avendano Work Phone: [facility] 12-26-2022 09:27-0400 Respiratory rate 17 /min Dr. Sherice Avendano Work Phone: [facility] 12-26-2022 09:27-0400 SaO2% (BldA) [Mass fraction] 97 % Dr. Sherice Avendano Work Phone: [facility] 12-26-2022 09:27-0400 Systolic blood pressure 145 mm[Hg] Dr. Sherice Avendano Work Phone: [facility] 11-07-2022 15:05-0400 Body temperature 98.4 [degF] Dr. Sherice Avendano Work Phone: [facility] 11-07-2022 15:05-0400 Diastolic blood pressure 78 mm[Hg] Dr. Sherice Avendano Work Phone: [facility] 11-07-2022 15:05-0400 Heart rate 47 /min Dr. Sherice Avendano Work Phone: [facility] 11-07-2022 15:05-0400 Respiratory rate 16 /min Dr. Sherice Avendano Work Phone: [facility] 11-07-2022 15:05-0400 SaO2% (BldA) [Mass fraction] 96 % Dr. Sherice Avendano Work Phone: [facility] 11-07-2022 15:05-0400 Systolic blood pressure 130 mm[Hg] Dr. Sherice Avendano Work Phone: [facility] 08-27-2022 08:57-0400 Body height 170.[address] Sherice Avendano Work Phone: [facility] 08-27-2022 08:57-0400 Body mass index (BMI) [Ratio] 27.1 kg/m2 Dr. Sherice Avendano Work Phone: [facility] 08-27-2022 08:57-0400 Body weight 78.[address] Sherice Avendano Work Phone: [facility] 08-27-2022 08:57-0400 Diastolic blood pressure 64 mm[Hg] Dr. Sherice Avendano Work Phone: [facility] 08-27-2022 08:57-0400 Heart rate 56 /min Dr. Sherice Avendano Work Phone: [facility] 08-27-2022 08:57-0400 Respiratory rate 16 /min Dr. Sherice Avendano Work Phone: [facility] 08-27-2022 08:57-0400 Systolic blood pressure 124 mm[Hg] Dr. Sherice Avendano Work Phone: [facility] 08-15-2022 10:02-0400 Body mass index (BMI) [Ratio] 27.3 kg/m2 Dr. Sherice Avendano Work Phone: [facility] 08-15-2022 10:02-0400 Body temperature 96.4 [degF] Dr. Sherice Avendano Work Phone: [facility] 08-15-2022 10:02-0400 Body weight 79.[address] Sherice Avendano Work Phone: [facility] 08-15-2022 10:02-0400 Diastolic blood pressure 64 mm[Hg] Dr. Sherice Avendano Work Phone: [facility] 08-15-2022 10:02-0400 Heart rate 54 /min Dr. Sherice Avendano Work Phone: [facility] 08-15-2022 10:02-0400 Respiratory rate 18 /min Dr. Sherice Avendano Work Phone: [facility] 08-15-2022 10:02-0400 SaO2% (BldA) [Mass fraction] 98 % Dr. Sherice Avendano Work Phone: [facility] 08-15-2022 10:02-0400 Systolic blood pressure 122 mm[Hg] Dr. Sherice Avendano Work Phone: [facility] 03-01-2022 08:56-0500 Body height 170.[address] Sherice Avendano Work Phone: [facility] 03-01-2022 08:56-0500 Body mass index (BMI) [Ratio] 27.1 kg/m2 Dr. Sherice Avendano Work Phone: [facility] 03-01-2022 08:56-0500 Body temperature 97 [degF] Dr. Sherice Avendano Work Phone: [facility] 03-01-2022 08:56-0500 Body weight 78.[address] Sherice Avendano Work Phone: [facility] 03-01-2022 08:56-0500 Diastolic blood pressure 82 mm[Hg] Dr. Sherice Avendano Work Phone: [facility] 03-01-2022 08:56-0500 Heart rate 76 /min Dr. Sherice Avendano Work Phone: [facility] 03-01-2022 08:56-0500 Respiratory rate 16 /min Dr. Sherice Avendano Work Phone: [facility] 03-01-2022 08:56-0500 SaO2% (BldA) [Mass fraction] 99 % Dr. Sherice Avendano Work Phone: [facility] 03-01-2022 08:56-0500 Systolic blood pressure 140 mm[Hg] Dr. Sherice Avendano Work Phone: [facility] 02-27-2022 08:26-0500 Body mass index (BMI) [Ratio] 27.1 kg/m2 Dr. Sherice Avendano Work Phone: [facility] 02-27-2022 08:26-0500 Body weight 78.[address] Sherice Avendano Work Phone: [facility] 02-27-2022 08:26-0500 Diastolic blood pressure 80 mm[Hg] Dr. Sherice Avendano Work Phone: [facility] 02-27-2022 08:26-0500 Heart rate 41 /min Dr. Sherice Avendano Work Phone: [facility] 02-27-2022 08:26-0500 Respiratory rate 18 /min Dr. Sherice Avendano Work Phone: [facility] 02-27-2022 08:26-0500 SaO2% (BldA) [Mass fraction] 10 % Dr. Sherice Avendano Work Phone: [facility] 02-27-2022 08:26-0500 Systolic blood pressure 130 mm[Hg] Dr. Sherice Avendano Work Phone: [facility] 02-15-2022 13:04-0500 Body temperature 97.3 [degF] Dr. Sherice Avendano Work Phone: [facility] 02-15-2022 13:04-0500 Body weight 80.[address] Sherice Avendano Work Phone: [facility] 02-15-2022 13:04-0500 Diastolic blood pressure 64 mm[Hg] Dr. Sherice Avendano Work Phone: [facility] 02-15-2022 13:04-0500 Heart rate 80 /min Dr. Sherice Avendano Work Phone: [facility] 02-15-2022 13:04-0500 Respiratory rate 18 /min Dr. Sherice Avendano Work Phone: [facility] 02-15-2022 13:04-0500 SaO2% (BldA) [Mass fraction] 99 % Dr. Sherice Avendano Work Phone: [facility] 02-15-2022 13:04-0500 Systolic blood pressure 124 mm[Hg] Dr. Sherice Avendano Work Phone: [facility] 01-01-2022 08:24-0400 Body height 170.[address] Sherice Avendano Work Phone: [facility] Work Phone: 01-01-2022 08:24-0400 Body mass index (BMI) [Ratio] 26.4 kg/m2 Dr. Sherice Avendano Work Phone: [facility] Work Phone: 01-01-2022 08:24-0400 Body weight 76.[address] Sherice Avendano Work Phone: [facility] Work Phone: 01-01-2022 08:24-0400 Diastolic blood pressure 74 mm[Hg] Dr. Sherice Avendano Work Phone: [facility] Work Phone: 01-01-2022 08:24-0400 Heart rate 42 /min Dr. Sherice Avendano Work Phone: [facility] Work Phone: 01-01-2022 08:24-0400 Respiratory rate 18 /min Dr. Sherice Avendano Work Phone: [facility] Work Phone: 01-01-2022 08:24-0400 SaO2% (BldA) [Mass fraction] 99 % Dr. Sherice Avendano Work Phone: [facility] Work Phone: 01-01-2022 08:24-0400 Systolic blood pressure 186 mm[Hg] Dr. Sherice Avendano Work Phone: [facility] Work Phone: 11-24-2021 09:01-0400 Body mass index (BMI) [Ratio] 25.9 kg/m2 Dr. Sherice Avendano Work Phone: [facility] Work Phone: 11-24-2021 09:01-0400 Body weight 75.[address] Sherice Avendano Work Phone: [facility] Work Phone: 11-24-2021 09:01-0400 Diastolic blood pressure 86 mm[Hg] Dr. Sherice Avendano Work Phone: [facility] Work Phone: 11-24-2021 09:01-0400 Heart rate 64 /min Dr. Sherice Avendano Work Phone: [facility] Work Phone: 11-24-2021 09:01-0400 Respiratory rate 16 /min Dr. Sherice Avendano Work Phone: [facility] Work Phone: 11-24-2021 09:01-0400 Systolic blood pressure 184 mm[Hg] Dr. Sherice Avendano Work Phone: [facility] Work Phone: 11-01-2021 10:33-0400 Body height 170.[address] Sherice Avendano Work Phone: [facility] Work Phone: 11-01-2021 10:33-0400 Body mass index (BMI) [Ratio] 25.7 kg/m2 Dr. Sherice Avendano Work Phone: [facility] Work Phone: 11-01-2021 10:33-0400 Body temperature 97.4 [degF] Dr. Sherice Avendano Work Phone: [facility] Work Phone: 11-01-2021 10:33-0400 Body weight 74.[address] Sherice Avendano Work Phone: [facility] Work Phone: 11-01-2021 10:33-0400 Diastolic blood pressure 70 mm[Hg] Dr. Sherice Avendano Work Phone: [facility] Work Phone: 11-01-2021 10:33-0400 Heart rate 51 /min Dr. Sherice Avendano Work Phone: [facility] Work Phone: 11-01-2021 10:33-0400 Respiratory rate 16 /min Dr. Sherice Avendano Work Phone: [facility] Work Phone: 11-01-2021 10:33-0400 SaO2% (BldA) [Mass fraction] 99 % Dr. Sherice Avendano Work Phone: [facility] Work Phone: 11-01-2021 10:33-0400 Systolic blood pressure 144 mm[Hg] Dr. Sherice Avendano Work Phone: [facility] Work Phone: 05-22-2021 11:22-0400 Body height 170.[address] Sherice Avendano Work Phone: [facility] Work Phone: 05-22-2021 11:22-0400 Body mass index (BMI) [Ratio] 27.1 kg/m2 Dr. Sherice Avendano Work Phone: [facility] Work Phone: 05-22-2021 11:22-0400 Body weight 78.[address] Sherice Avendano Work Phone: [facility] Work Phone: 05-22-2021 11:22-0400 Diastolic blood pressure 70 mm[Hg] Dr. Sherice Avendano Work Phone: [facility] Work Phone: 05-22-2021 11:22-0400 Heart rate 55 /min Dr. Sherice Avendano Work Phone: [facility] Work Phone: 05-22-2021 11:22-0400 Respiratory rate 18 /min Dr. Sherice Avendano Work Phone: [facility] Work Phone: 05-22-2021 11:22-0400 SaO2% (BldA) [Mass fraction] 99 % Dr. Sherice Avendano Work Phone: [facility] Work Phone: 05-22-2021 11:22-0400 Systolic blood pressure 166 mm[Hg] Dr. Sherice Avendano Work Phone: [facility] Work Phone: Encounters Encounter Date Encounter Type Care Provider Facility Start: 12-17-2024 End: 12-17-2024 Patient encounter procedure Yan MA -[facility] Work Phone: Start: 12-17-2024 End: 12-17-2024 ambulatory [facility] Facility:[facility] Start: 12-01-2024 Non-patient / Non-visit Dr. Nicholas davis MD -[facility] Start: 12-01-2024 End: 12-01-[address] Sherice Avendano MD Work Phone: -[facility] Start: 12-01-2024 End: 12-01-2024 Patient encounter procedure Chacorta Porter NP-C -[facility] Work Phone: Start: 12-01-2024 End: 12-01-2024 ambulatory [facility] Facility:[facility] Start: 11-26-2024 End: 11-26-2024 Patient encounter procedure Chacorta DUNN -[facility] Work Phone: Start: 11-26-2024 End: 11-26-[address] Sherice Avendano MD Work Phone: -[facility] Start: 11-11-2024 End: 11-11-[address] Sherice Avendano MD -[facility] Work Phone: Start: 11-11-2024 End: 11-11-[address] Sherice Avendano MD Work Phone: -[facility] Start: 10-28-2024 End: 10-28-2024 Patient encounter procedure Yan MA -[facility] Work Phone: Start: 10-28-2024 End: 10-28-[address] Sherice Avendano MD Work Phone: -[facility] Start: 08-26-2024 End: 08-26-2024 Patient encounter procedure Chacorta Porter CLINICAL DATA MANAGER-C -[facility] Work Phone: Start: 08-26-2024 End: 08-26-[address] Sherice Avendano MD Work Phone: [facility] Work Phone: Start: 08-20-2024 End: 08-20-2024 Patient encounter procedure Riya Lutz CLINICAL DATA MANAGER-C -[facility] Work Phone: Start: 08-20-2024 End: 08-20-[address] Sherice Avendano MD Work Phone: [facility] Work Phone: Start: 08-04-2024 End: 08-04-2024 Emergency department patient visit Dr. Sherice Avendano MD Work Phone: -Emergency Department Work Phone: Start: 06-10-2024 End: 06-10-2024 ambulatory Gennaro Fuentes CLINICAL DATA MANAGER-C Work Phone: [facility] Work Phone: Start: 06-10-2024 End: 06-10-2024 Patient encounter procedure Chacorta Porter CLINICAL DATA MANAGER-C -[facility] Work Phone: Start: 06-10-2024 End: 06-10-2024 ambulatory Chacorta Porter NP Facility:[facility] Start: 05-19-2024 End: 05-19-2024 Patient encounter procedure Chacorta Porter CLINICAL DATA MANAGER-C -[facility] Work Phone: Start: 05-19-2024 End: 05-19-2024 ambulatory Chacorta Porter CLINICAL DATA MANAGER Facility:[facility] Start: 05-15-2024 End: 05-15-2024 ambulatory Gennaro Fuentes CLINICAL DATA MANAGER-C Work Phone: [facility] Work Phone: Start: 05-15-2024 End: 05-15-[address] Sherice Avendano MD -Laboratory, [place] Work Phone: Start: 05-15-2024 End: 05-15-2024 ambulatory [facility] Facility:[facility] Start: 05-07-2024 End: 05-07-[address] Sherice Avendano MD -[facility] Work Phone: Start: 05-07-2024 End: 05-07-2024 ambulatory [facility] Facility:[facility] Start: 04-02-2024 ambulatory Marlena Angel Fa cility:[facility] Start: 04-02-2024 Non-patient / Non-visit Dr. India [facility] Start: 04-01-2024 ambulatory Nicholas Teixeira Facility:[facility] Start: 04-01-2024 Non-patient / Non-visit Dr. Nicholas davis MD -[facility] Start: 04-01-2024 End: 04-01-2024 Patient encounter procedure Marlena MA -Cardiovascular Services Work Phone: Start: 04-01-2024 End: 04-01-2024 ambulatory Marlena Angel Facility:[facility] Start: 04-01-2024 Non-patient / Non-visit Dr. India WERNER [facility] Start: 03-11-2024 End: 03-11-2024 Patient encounter procedure Marlena MA -[facility] Work Phone: Start: 03-11-2024 End: 03-11-2024 ambulatory Marlena Angel Facility:[facility] Start: 03-10-2024 End: 03-10-[address] Edna Tilley MD -Laboratory, [place] Work Phone: Start: 03-09-2024 End: 03-10-2024 ambulatory Edna Tilley Facility:[facility] Start: 02-24-2024 ambulatory Pop Castellanos Facility:[facility] Start: 02-24-2024 Non-patient / Non-visit Dr. India WERNER -[facility] Start: 02-24-2024 End: 02-24-2024 Patient encounter procedure Gennaro Fuentes CLINICAL DATA MANAGER-C -[facility] Work Phone: Start: 02-24-2024 End: 02-24-2024 ambulatory Gennaro Fuentes NP Facility:[facility] Start: 02-12-2024 End: 02-12-2024 Telephone encounter Jhonny Lim MD Work Phone: [facility] Start: 01-16-2024 End: 01-16-2024 ambulatory Gennaro Fuentes NP Facility:[facility] Start: 01-10-2024 End: 01-10-2024 Telephone encounter Jhonny Lim MD Work Phone: [facility] Start: 01-09-2024 End: 01-09-2024 Emergency department patient visit Denzel Carlin Facility:[facility] Start: 01-09-2024 End: 01-09-2024 ambulatory Sherice Avendano Facility:[facility] Start: 01-09-2024 End: 01-09-2024 ambulatory Luis Ahomesteadkarla Avendano Facility:[facility] Start: 06-12-2023 End: 06-12-2023 ambulatory FABIOLA PARKER Facility:[id number] Start: 06-06-2023 Patient encounter status Gennaro Fuentes CLINICAL DATA MANAGER-C Work Phone: [facility] Comment on above: Scheduled for retina surgery on 06/12/2023 Start: 05-22-2023 End: 05-22-[address] Sherice Avendano Work Phone: [facility] Work Phone: Start: 05-22-2023 End: 05-22-2023 Emergency department patient visit Dr. Sherice Avendano Work Phone: [facility] Start: 05-22-2023 End: 05-22-[address] Sherice Avendano Work Phone: [facility] Work Phone: Start: 05-09-2023 End: 05-09-[address] Sherice Avendano Work Phone: [facility] Work Phone: Start: 05-09-2023 End: 05-09-[address] Sherice Avendano Work Phone: [facility] Work Phone: Start: 05-01-2023 End: 05-01-[address] Sherice Avendano Work Phone: [facility] Work Phone: Start: 04-25-2023 End: 04-25-[address] Sherice Avendano Work Phone: [facility] Work Phone: Start: 04-25-2023 End: 04-25-[address] Sherice Avendano Work Phone: [facility] Work Phone: Start: 04-24-2023 End: 04-24-[address] Sherice Avnedano Work Phone: [facility] Work Phone: Start: 04-21-2023 End: 04-21-[address] Sherice Avendano Work Phone: [facility] Work Phone: Start: 04-01-[address] Sherice Avendano Work Phone: [facility] Start: 04-01-2023 End: 04-01-[address] Sherice Avendano Work Phone: [facility] Work Phone: Start: 04-01-2023 End: 04-01-2023 Emergency department patient visit Dr. Sherice Avendano Work Phone: [facility] Start: 04-01-2023 End: 04-01-[address] Sherice Avendano Work Phone: [facility] Work Phone: Start: 02-19-2023 End: 02-19-[address] Sherice Avendano Work Phone: [facility] Work Phone: Start: 12-26-2022 End: 12-26-[address] Sherice Avendano Work Phone: [facility] Work Phone: Start: 11-27-2022 End: 11-27-[address] Sherice Avendano Work Phone: [facility] Work Phone: Start: 11-27-2022 End: 11-27-[address] Sherice Avendano Work Phone: [facility] Work Phone: Start: 11-07-2022 End: 11-07-[address] Sherice Avendano Work Phone: [facility] Work Phone: Start: 09-28-2022 End: 09-28-[address] Sherice Avendano Work Phone: [facility] Work Phone: Start: 09-28-2022 End: 09-28-[address] Sherice Avendano Work Phone: [facility] Work Phone: Start: 08-27-2022 End: 08-27-[address] Sherice Avendano Work Phone: [facility] Work Phone: Start: 08-15-2022 End: 08-15-[address] Sherice Avendano Work Phone: [facility] Work Phone: Start: 05-01-2022 End: 05-01-[address] Sherice Avendano Work Phone: [facility] Work Phone: Start: 05-01-2022 End: 05-01-[address] Sherice Avendano Work Phone: [facility] Start: 03-01-2022 End: 03-01-[address] Sherice Avendano Work Phone: [facility] Start: 02-27-2022 End: 02-27-[address] Sherice Avendano Work Phone: [facility] Start: 02-15-[address] Sherice Avendano Work Phone: [facility] Start: 02-15-2022 End: 02-15-2022 Encounter for general adult medical examination without abnormal findings Dr. Sherice Avendano Work Phone: [facility] Start: 02-15-2022 End: 02-15-[address] Sherice Avendano Work Phone: [facility] Start: 01-26-2022 End: 01-26-[address] Sherice Avendano Work Phone: [facility] Start: 01-22-2022 Non-patient / Non-visit Dr. Raul Avendano Work Phone: [facility] Start: 01-22-2022 End: 01-22-[address] Sherice Avendano Work Phone: [facility] Work Phone: Start: 01-22-2022 End: 01-22-[address] Sherice Avendano Work Phone: [facility] Start: 01-06-2022 End: 01-06-[address] Sherice Avendano Work Phone: [facility] Start: 01-01-2022 End: 01-01-[address] Sherice Avendano Work Phone: [facility] Work Phone: Start: 01-01-2022 End: 01-01-[address] Sherice Avendano Work Phone: [facility] Start: 12-29-2021 End: 12-29-[address] Sherice Avendano Work Phone: [facility] Work Phone: Start: 12-29-2021 End: 12-29-[address] Sherice Avendano Work Phone: [facility] Start: 11-24-2021 End: 11-24-[address] Sherice Avendano Work Phone: [facility] Start: 11-01-2021 End: 11-01-[address] Sherice Avendano Work Phone: [facility] Start: 10-30-2021 End: 10-30-[address] Sherice Avendano Work Phone: [facility] Work Phone: Start: 10-30-2021 End: 10-30-[address] Sherice Avendano Work Phone: [facility] Start: 06-08-2021 End: 06-08-[address] Sherice Avendano Work Phone: [facility] Start: 05-22-2021 End: 05-22-[address] Sherice Avendano Work Phone: [facility] Start: 04-11-2021 End: 04-11-[address] Sherice Avendano Work Phone: [facility] Procedures Date Procedure Procedure Detail Performing Clinician [...] test using pharmacologic stress agent Gennaro Fuentes CLINICAL DATA MANAGER-C Work Phone: Start: 02-24-2024 CT of chest without contrast Gennaro Fuentes CLINICAL DATA MANAGER-C Work Phone: Start: 05-09-2023 Plain chest X-ray Dr. Eros Avendano Work Phone: Start: 04-25-2023 Plain chest X-ray Dr. Eros Avendano Work Phone: Start: 04-24-2023 Coronavirus COVID-[address] Sherice Avendano Work Phone: Plan of Treatment Date Care Activity Detail Author Start: 2033 RSV Immunization for Adults (1 - 1-dose 75+ series) RSV Immunization for Adults (1 - 1-dose 75+ series) [facility] Start: 08-10-2029 DTaP/Tdap/Td Vaccines (2 - Td or Tdap) DTaP/Tdap/Td Vaccines (2 - Td or Tdap) [facility] Start: 08-10-2029 DTaP/Tdap/Td Vaccines (3 - Td or Tdap) DTaP/Tdap/Td Vaccines (3 - Td or Tdap) [facility] Start: 12-01-2024 Patient encounter procedure Registered Clinical -Cardiovascular Services Work Phone: Start: 11-26-2024 End: 11-26-2024 Evaluation of diagnostic study results [facility] Start: 08-04-2024 [facility] Start: 08-04-2024 [facility] Start: 08-04-2024 [facility] Start: 02-12-2024 End: 02-12-2024 Patient encounter procedure 02/12/2024 1:00 PM EST Office Visit [facility] [address] [place] [id number] Jhonny Lim MD [address] [place] [address] [facility] Start: 12-15-2023 Pneumococcal Vaccine: 65+ Years (2 of 2 - PCV) Pneumococcal Vaccine: 65+ Years (2 of 2 - PCV) [facility] Start: 11-03-2023 COVID-19 Vaccine ( season) COVID-19 Vaccine ( season) [facility] Start: 11-03-2023 Influenza vaccination Influenza Vaccine (#1) [facility] Start: 04-01-2023 Patient referral [facility] Work Phone: Start: 04-01-2023 Testosterone measurement [facility] Start: 2018 RSV Immunization for Adults (1 - Risk 60-74 years 1-dose series) RSV Immunization for Adults (1 - Risk 60-74 years 1-dose series) [facility] Start: 2008 Zoster Vaccines (1 of 2) Zoster Vaccines (1 of 2) [facility] Start: 1976 Diabetes: Estimated Glomerular Filtration Rate for Kidney Health Diabetes: Estimated Glomerular Filtration Rate for Kidney Health [facility] Start: 1976 Diabetes: Urine Albumin-Creatinine Ratio for Kidney Health Diabetes: Urine Albumin-Creatinine Ratio for Kidney Health [facility] Start: 1976 Hepatitis C screening Hepatitis C Screening [facility] Start: 1970 Depression Screening Depression Screening [facility] Start: 1968 Diabetic foot examination Diabetes: Foot Exam [facility] Start: 1968 Glaucoma screening Diabetes: Retinopathy Screening [facility] Start: 1968 Preventive dental service Diabetes: Dental Exam [facility] Start: 12-15-1959 MMR Vaccines (1 of 1 - Standard series) MMR Vaccines (1 of 1 - Standard series) [facility] Start: 1958 Annual wellness visit Medicare Initial Physical (IPPE) [facility] Start: 1958 Hemoglobin A1c measurement Diabetes: Hemoglobin A1C [facility] Start: 1958 Lipid panel Lipid Panel [facility] Start: 1958 Screening for malignant neoplasm of colon [facility] Blood chemistry [facility] Work Phone: Blood chemistry [facility] Lipid 1996 panel - S camila or Plasma [facility] Work Phone: Patient referral [facility] Work Phone: Prostate specific antigen measurement [facility] Testosterone [Mass/volume] in Serum or Plasma [facility] Testosterone Free [Mass/volume] in Serum or Plasma [facility] US Carotid arteries [facility] Renal artery [facility] Work Phone: Immunizations Immunization Date Immunization Notes Care Provider Fa cility 06-02-2020 Covid (Pfizer) Dr. Sherice Avendano Work Phone: [facility] 05-12-2020 Covid (Pfizer) Dr. Sherice Avendano Work Phone: [facility] 12-04-2019 influenza, injectable,quadrivalent, preservative free, pediatric Dr. Sherice Avendano Work Phone: [facility] 12-04-2019 pneumococcal polysaccharide vaccine, [address] Sherice Avendano Work Phone: [facility] 12-04-2019 pneumococcal vaccine , unspecified formulation Dr. Sherice Avendano Work Phone: [facility] Work Phone: 12-04-2019 Flucelvax Quad 2019- 2020 (PF) (flu vac qs 2020(4 yr up)CD(PF)) 60 mcg ([address] Sherice Avendano Work Phone: [facility] Work Phone: 12-04-2019 influenza virus vacc ine, unspecified formulation Jhonny Lim MD Work Phone: [facility] 08-11-2019 tetanus toxoid, redu tere diphtheria toxoid, and acellular pertussis vaccine, adsorbed Dr. Sherice Avendano Work Phone: [facility] 08-11-2019 diphtheria, tetanus toxoids and acellular pertussis vaccine, unspecified formulation Dr. Sherice Avendano Work Phone: [facility] Work Phone: Payers Date Payer Category Payer Self-pay [id number] 2014 Medicare [id number] [id number] Medicare [id number] Unknown [id number] Unknown [id number] 2.16.8 40.1.290463.3.579.2.462 Unknown [id number] 2.16.8 40.1.399376.3.579.2.462 Unknown [id number] 2.16.8 40.1.608918.3.579.2.462 Unknown [id number] 2.16.8 40.1.811360.3.579.2.462 Unknown [id number] 2.16.8 40.1.549780.3.579.2.462 Unknown [id number] 2.16.8 40.1.415248.3.579.2.462 Unknown [id number] 2.16.8 40.1.112640.3.579.2.462 Unknown [id number] 2.16.8 40.1.657476.3.579.2.462 Unknown [id number] 2.16.8 40.1.657807.3.579.2.462 Unknown [id number] 2.16.8 40.1.357566.3.579.2.462 Unknown [id number] 2.16.8 40.1.344971.3.579.2.462 Unknown [id number] 2.16.8 40.1.118770.3.579.2.462 Unknown [id number] 2.16.8 40.1.192991.3.579.2.462 Unknown [id number] 2.16.8 40.1.143241.3.579.2.462 Unknown [id number] 2.16.8 40.1.748326.3.579.2.462 Unknown [id number] 2.16.8 40.1.532469.3.579.2.462 Unknown [id number] 2.16.8 40.1.325889.3.579.2.462 Unknown [id number] 2.16.8 40.1.703716.3.579.2.462 Unknown [id number] 2.16.8 40.1.286212.3.579.2.462 Unknown [id number] 2.16.8 40.1.486316.3.579.2.462 Unknown [id number] 2.16.8 40.1.985948.3.579.2.462 Unknown [id number] 2.16.8 40.1.315795.3.579.2.462 Unknown [id number] 2.16.8 40.1.976179.3.579.2.462 Unknown [id number] 2.16.8 40.1.382843.3.579.2.462 Unknown [id number] 2.16.8 40.1.296511.3.579.2.462 Unknown [id number] 2.16.8 40.1.347901.3.579.2.462 Unknown [id number] 2.16.8 40.1.498031.3.579.2.462 Social History Date Type Detail Facility Start: 05-21-2021 End: 05-22-2023 Tobacco smoking status SCIS Unknown if ever smoked [facility] Start: 1960 Sex Assigned At Male [facility] Start: 1960 Sex assigned at Not on file [facility] Start: 01-10-2024 End: 06-16-2024 Sex Male (finding) [facility] Gender identity Not on file [facility] Start: 01-09-2024 End: 08-04-2024 Tobacco smoking status NHIS Ex-smoker (finding) [facility] Medical Equipment Procedure Code Equipment Code Equipment [...] x 3/16 needle Start: 01-25-2021 End: 01-25-2021 [facility] Start: [...] x 3/16 needle Start: 01-25-2021 End: 01-25-2021 [facility] Start: [...] x 3/16 needle Start: 01-25-2021 End: 01-25-2021 [facility] sh[facility] Start: [...] x 3/16 needle Start: 01-25-2021 End: 01-25-2021 [facility] sh[facility] FDA Start: [...] x 3/16 needle Start: 01-25-2021 End: 01-25-2021 [facility] sh[facility] FDA Start: [...] x 3/16 needle Start: 01-25-2021 End: 01-25-2021 [facility] sh[facility] FDA Start: [...] x 3/16 needle Start: 01-25-2021 End: 01-25-2021 [facility] sh[facility] FDA Start: [...] x 3/16 needle Start: 01-25-2021 End: 01-25-2021 [facility] sh[facility] FDA Start: [...] x 3/16 needle Start: 01-25-2021 End: 01-25-2021 [facility] sh[facility] FDA Start: [...] x 3/16 needle Start: 01-25-2021 End: 01-25-2021 [facility] sh[facility] FDA Start: [...] x 3/16 needle Start: 01-25-2021 End: 01-25-2021 [facility] sh[facility] FDA Start: [...] x 3/16 needle Start: 01-25-2021 End: 01-25-2021 [facility] sh[facility] FDA Start: [...] x 3/16 needle Start: 01-25-2021 End: 01-25-2021 [facility] sh[facility] FDA Start: [...] x 3/16 needle Start: 01-25-2021 End: 01-25-2021 [facility] sh[facility] FDA Start: [...] x 3/16 needle Start: 01-25-2021 End: 01-25-2021 [facility] sh[facility] FDA Start: [...] x 3/16 needle Start: 01-25-2021 End: 01-25-2021 [facility] sh[facility] FDA Start: [...] x 3/16 needle Start: 01-25-2021 End: 01-25-2021 [facility] sh[facility] FDA Start: [...] x 3/16 needle Start: 01-25-2021 End: 01-25-2021 [facility] FDA Start: [...] x 3/16 needle Start: 01-25-2021 End: 01-25-2021 [facility] sh[facility] FDA Start: [...] x 3/16 needle Start: 01-25-2021 End: 01-25-2021 [facility] FDA Start: [...] x 3/16 needle Start: 01-25-2021 End: 01-25-2021 [facility] FDA Start: [...] Level Of Cons ciousness Awake;Alert;Appropriate;Follow s Commands [facility] Work Phone: Clinical Notes 06-11-2023 to 12-17-2024 Note Date & Type Note Facility 12-17-2024 Progress note [facility] 12-17-2024 Progress note Note Date/Time December 17, 2024 3:15pm [facility] [address] [place] [address] [place] [address] OFFICE VISIT Date of Service: 12/17/24 MR#: [id number] Acct: [id number] Name: OLIVIER MENDOZA Rep #: [id number] : 1960 Provider: ANIL Dunn Age/Sex: 64/M Location: [facility] Status: Signed Intake Vital Signs 11/26/24 10:04 [...] Voicebox issues Chief Complaint: 6 M FU Testing Tech Required: No Is patient in pain?: No Allergies latex Allergy (Unknown, Verified 12/17/24 14:34) Unknown Jaykmeq-QVQ-UcQ Reductase Inhibitor (Gqgbjtn-Qij-Udl Reductase Inhibitor) Adverse Reaction (Severe, Verified 12/17/24 [...] a sore throatin the morning. [facility] Medical History Chronic sinusitis Erectile dysfunction Claudication of both lower extremities Hilar density Abnormal chest xray Preop cardiovascular exam CKD (chronic kidney disease), stage III GERD (gastroesophageal reflux disease) Chest congestion Preoperative evaluation to rule out surgical contraindication Sinusitis Skin cyst Fatigue Left elbow pain Health care maintenance Proteinuria Nephropathy Bilateral lower extremity edema COVID-19 vaccine series completed Atherosclerotic heart disease of [place] coronary artery without angina pectoris Mixed hyperlipidemia [...] He started to do Flonase and the [place] which he states he great however [...] Cosigner Signature: Date (if applicable) CC: ~ [facility] Work Phone: 1(314) 358-658109-25-2025 Progress [facility] 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 [facility] Medical History Chronic sinusitis Erectile dysfunction Claudication of both lower extremities Hilar density Abnormal chest xray Preop cardiovascular exam CKD (chronic kidney disease), stage III GERD (gastroesophageal reflux disease) Chest congestion Preoperative evaluation to rule out surgical contraindication Sinusitis Skin cyst Fatigue Left elbow pain Health care maintenance Proteinuria Nephropathy Bilateral lower extremity edema COVID-19 vaccine series completed Atherosclerotic heart disease of [place] coronary artery without angina pectoris Mixed hyperlipidemia [...] ejection fraction. Cardiac Catheterization 05/09/2020: PROCEDURE(S) PERFORMED NF08-LFY/COR/LV CLINICAL PROFILE AND INDICATIONS Indications: Suspected CAD [...] options. He is encouraged to follow with cloth folder machine and silk screen etcher for diabetes and kidney related component.Will consider ongoing medication adjustment as needed. (2) Atherosclerotic heart disease of [place] coronary artery without angina pectoris: Status: Chronic Qualifiers: [place] vs. transplanted heart: [place] heart Qualified Code(s): I25.10 - Atherosclerotic heart disease of [place] coronary artery without angina pectoris Comment: Diffuse coronary artery disease with small vessels noted in the entire coronary vasculature. [facility] 05/09/20 Plan: Patient has a history [...] as necessary. 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 transplanted heart: [place] heart Mixed hyperlipidemia E78.2 LING (dyspnea on exertion) R06.09 Claudication of both lower extremities I73.9 Carotid artery disease I77.9 Coding Level of Care Code Off vis,est,level 4 Diagnoses Essential hypertension I10 Atherosclerosis of [place] coronary artery of [place] heart without angina pectoris I25.10 Crow vs. transplanted heart: [place] heart Mixed hyperlipidemia E78.2 LING (dyspnea on exertion) R06.09 Claudication of both lower extremities I73.9 Carotid artery disease I77.9 Clinical Quality Measures Falls Risk Screening/Assistive Devices Have you fallen in the past year?: No Cardiac Ejection fraction %: 65 11/26/24 1315 P CLINICAL DATA MANAGER-C> Date _ [facility] CLINICAL DATA MANAGER CLINICAL DATA MANAGER-C Cosigner Signature: Date (if applicable) CC: ~ [facility]08-27-2025 Evaluation note* Diagnosis Onset Date Resolution Status Admit Date Acute nasopharyngitis acute Oct 9:28am Abdominal pain acute November 11, 2024 9:58am Chronic sinusitis chronic Novemb er 2024 9:58am Erectile dysfunction chronic Nov 9:58am Essential hypertension chronic Se ptember 2024 9:58am Type 1 diabetes mellitus chronic November 11, 2024 9:58am Carotid artery disease acute Se ptember 2024 9:29am Atherosclerotic heart diseas e of [place] coronary artery without angina pectoris chronic e r 2024 9:29am Claudication of both lower extremities chronic November 26, 2024 9:29am LING (dyspnea on exertion) chronic November 26, 2024 9:29am Essential hypertension chronic Se ptember 2024 9:29am Mixed hyperlipidemia chronic Nov 9:29am Acute rhinosinusitis acute 2024 2:30pm [facility] Work Phone: 1(959) 941-386106-19-2025 Evaluation note* Diagnosis Onset Date Resolution Status Admit Date Neck muscle strain acute August 022024 10:58am Carotid artery disease acute Ju ne 2024 8:53am Atherosclerotic heart diseas e of [place] rosa coronary artery without angina pectoris chronic August 26, 2024 8:53am Claudication of both lower extremities chronic August 26, 2024 8:53am LING (dyspnea on exertion) chronic August 26, 2024 8:53am Essential hypertension chronic 2024 8:53am Mixed hyperlipidemia chronic August 26, 2024 8:53am [facility] Work Phone: 1(304) 800-889306-19-2025 Evaluation note* Diagnosis Onset Date Resolution Status Admit Date Neck muscle strain acute August 022024 10:58am Carotid artery disease acute Ju 2024 8:53am Atherosclerotic heart diseas e of [place] coronary artery without angina pectoris chronic August 26, 2024 8:53am Claudication of both lower extremities chronic August 26, 2024 8:53am LING (dyspnea on exertion) chronic August 26, 2024 8:53am Essential hypertension chronic 2024 8:53am Mixed hyperlipidemia chronic August 26, 2024 8:53am Acute nasopharyngitis acute Oct 9:28am Preston [facility] Work Phone: 1([phone]) 597-222406-19-2025 Evaluation note* Diagnosis Onset Date Resolution Status Admit Date Neck muscle strain acute August 022024 10:58am Carotid artery disease acute 2024 8:53am Atherosclerotic heart diseas e of [place] coronary artery without angina pectoris chronic August [...] 2024 9:29am Atherosclerotic heart diseas e of [place] coronary artery without angina pectoris chronic Septembe r 2024 9:29am Claudication of both lower extremities chronic November 26, 2024 9:29am LING (dyspnea on exertion) chronic November 26, 2024 9:29am Essential hypertension chronic Se ptember 2024 9:29am Mixed hyperlipidemia chronic Sept emb2024 9:29am [facility] Work Phone: 1(892) 583-908006-19-2025 [facility] [address] [place] [address] [place] [address] OFFICE VISIT Date of Service: 08/20/24 MR#: [id number] Acct: [id number] Name: OLIVIER MENDOZA Rep #: [id number] : 1960 Provider: SHAUN Lutz Age/Sex: 63/M Location[facility] Status: Signed Intake Vital Signs 08/04/24 13:41 [...] latex Allergy (Unknown, Verified 08/20/24 11:07) Unknown Wmhwkbb-KIN-LuH Reductase Inhibitor (Mwocuyh-Cnm-Qre Reductase Inhibitor) Adverse Reaction (Severe,Verified 08/20/24 11:07) [...] 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 is 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 the 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/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 compliance officer 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 to get BP lowered pt denies any chest pain or shortness of breath at this time 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 tried to take IBU for the neck pain however it sent his blood pressure through the roof so now he no longer uses this [facility] Medical History Claudication of both lower extremities Hilar density Abnormal chest xray Preop cardiovascular exam CKD (chronic kidney disease), stage III GERD (gastroesophageal reflux disease) Chest congestion Preoperative evaluation to rule out surgical contraindication Sinusitis Skin cyst Fatigue Left elbow pain Health care maintenance Proteinuria Nephropathy Bilateral lower extremity edema COVID-19 vaccine series completed Atherosclerotic heart disease of [place] coronary artery without angina pectoris Mixed hyperlipidemia [...] right side. He has been using o lyw-glk-gqpasxv pain patches on the area and notes [...] well nourished Orientation: alert and oriented x3 [facility] Head: normal to inspection Ears: hearing grossly [...] the past year?: No 08/20/24 1201 er CLINICAL DATA MANAGER-C> Date _ Riya Lutz CLINICAL DATA MANAGER-C Cosigner Signature: Date (if applicable) CC: ~ [facility]06-19-2025 Progress note Author Riya Luzt [facility] Note Date/Time August 20, 2024 12:0 1pm [facility] [address] [place], [place] [address] OFFICE VISIT Date of Service: 08/20/24 MR#: [id number] Acct: [id number] Name: OLIVIER MENDOZA Rep #: [id number] : 1960 Provider: SHAUN Lutz Age/Sex: 63/M Location: [facility] Status: Signed Intake Vital Signs 08/04/24 13:41 [...] latex Allergy (Unknown, Verified 08/20/24 11:07) Unknown Wyvbiiw-GBW-PxT Reductase Inhibitor (Eyturgd-Zve-Mlc Reductase Inhibitor) Adverse Reaction (Severe, Verified 08/20/24 [...] Rx blood-glucose sensor (FreeStyle 05/07/24 08/20/24 His [employer] Daron 2 Plus Sensor device) cholecalciferol (vitamin [...] 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 is 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 the bsa/aml compliance officer office to get BP lowered pt denies [...] vaccine series completed Atherosclerotic heart disease of [place] coronary artery without angina pectoris Mixed hyperlipidemia [...] the right side. He has been using ifqt-srk-ncaigni pain patches on the area and notes [...] 1201 <Electronically signed by Riya Shay er CLINICAL DATA MANAGER-C> Date _ Riya De Leonr CLINICAL DATA MANAGER-C Cosigner Signature: Date (if applicable) CC: ~ [facility] Work Phone: 1(599) 670-197106-03-2025 Discharge summary [facility] Medical Records Department [address] [place] [address] Emergency Department Summary 08/04/24 MR#: [id number] Acct: [id number] Name: OLIVIER MENDOZA Rep #:[id number] : 1960 63 From: Denzel Carlin DO [...] a stress test and an entire workup [facility] Medical History Claudication of both lower extremities Hilar density Abnormal chest xray Preop cardiovascular exam CKD (chronic kidney disease), stage III GERD (gastroesophageal reflux disease) Chest congestion Preoperative evaluation to rule out surgical contraindication Sinusitis Skin cyst Fatigue Left elbow pain Health care maintenance Proteinuria Nephropathy Bilateral lower extremity edema COVID-19 vaccine series completed Atherosclerotic heart disease of [place] coronary artery without angina pectoris Mixed hyperlipidemia [...] latex Allergy Unknown Unknown Verified 08/04/24 13:41 Xreydrg-PEQ-CaF Reductase AdvReac Severe muscle pain Verified 08/04/24 13:41 Inhibitor (Yywyvbr-Thn-Txf Reductase Inhibitor) Family History Mother Diabetes Myocardial [...] follow commands knew that he was at [facility] year is 2024 Skin: Warm, dry, [...] 74.3 H Lymph % (Auto) 13.9 L [place] % (Auto) 7.4 Eos % (Auto) 3.7 [...] Borderline cardiomegaly. No significant change. Reading Location: [id number] Discharge Plan Triage Chief Complaint: Hypertension ED [...] worsening symptoms or other concerns. Print Language: Sudanese Disposition Disposition: Home, Self Care What to do if you have Problems For any increased pain, shortness of breath, bleeding, nausea or vomiting, chestpain, or any unexpected problems, contact your Primary Care Provider. Call [facility] ([phone]) or report tothe closest Emergency Room. Call 911 if necessary. 08/04/24 1735 Cosigner Signature (if applicable): CC: Dr. Sherice Avendano MD ~ Signed [facility]06-03-2025 Radiology Diagnostic study note [facility] Imaging Services [address] [place] [address] Chest PA and Lateral MR#: [id number] Acct: [id number] Name: OLIVIER MENDOZA Rep #: [id number] : 1960 M 63 From: Dieudonne Mckinley MD PCP: Dr. Sherice Avendano MD Status: R ER Study:Chest PA and Lateral Date of Exam: 08/04/24 Exam# [id number] Ordering Dr: Preston Carlin DO PROCEDURE: CHEST [...] Borderline cardiomegaly. No significant change. Reading Location: [id number] CC: Dr. Sherice Avendano MD; Dr. Denzel Carlin DO ~ Retention Manager: Signed [facility] Work Phone: [phone]) 904-450406-03-2025 Discharge summary Author Denzel Carlin [facility] Note Date/Time August 04, 2024 5:35p m [facility] Medical Records Department [address] [place] [address] Emergency Department Summary 08/04/24 MR#: [id number] Acct: [id number] Name: OLIVIER MENDOZA Rep #:[id number] : 1960 63 From: Denzel Carlin DO [...] a stress test and an entire workup [facility] Medical History Claudication of both lower extremities Hilar density Abnormal chest xray Preop cardiovascular exam CKD (chronic kidney disease), stage III GERD (gastroesophageal reflux disease) Chest congestion Preoperative evaluation to rule out surgical contraindication Sinusitis Skin cyst Fatigue Left elbow pain Health care maintenance Proteinuria Nephropathy Bilateral lower extremity edema COVID-19 vaccine series completed Atherosclerotic heart disease of [place] coronary artery without angina pectoris Mixed hyperlipidemia [...] Rx blood-glucose sensor (FreeStyle 05/07/24 Unknown [employer] Daron 2 Plus Sensor device) cholecalciferol (vitamin [...] latex Allergy Unknown Unknown Verified 08/04/24 13:41 Ycxvpfv-PPP-KsN Reductase AdvReac Severe muscle pain Verified 08/04/24 13:41 Inhibitor (Aszbswf-Qtp-Hsa Reductase Inhibitor) Family History Mother Diabetes Myocardial [...] follow commands knew that he was at [facility] year is 2024 Skin: Warm, dry, [...] 74.3 H Lymph % (Auto) 13.9 L [place] % (Auto) 7.4 Eos % (Auto) 3.7 [...] Borderline cardiomegaly. No significant change. Reading Location: [id number] Discharge Plan Triage Chief Complaint: Hypertension ED [...] worsening symptoms or other concerns. Print Language: Sudanese Disposition Disposition: Home, Self Care What to do if you have Problems For any increased pain, shortness of breath, bleeding, nausea or vomiting, chestpain, or any unexpected problems, contact your Primary Care Provider. Call [facility] ([phone]) or report to the closest Emergency Room. Call 911 if necessary. 08/04/24 1738 <Electronically signed by Denzel Carlin DO> Cosigner Signature (if applicable): CC: Dr. Sherice Avendano MD ~ Signed [facility] Work Phone: 1([phone]) 927-311303-06-2025 Evaluation note* Diagnosis Onset Date Resolution Status Admit Date Bilateral lower extremity edema custom harvester leonard May 07, 2024 1:24pm BPH (benign prostatic hyperplasia) chronic May 07, 2024 1:24pm CKD (chronic kidney disease) , stage III chronic May 07, 2024 1:24pm Essential hypertension chronic [facility] 2024 1:24pm GERD (gastroesophageal reflu x disease) chronic May 07, 2024 1:24pm Mixed hyperlipidemia chronic [facility] 2024 1:24pm Atherosclerotic heart diseas e of [place] coronary artery without angina pectoris chronic May 19, 2024 10:27am Claudication of both lower extremities chronic May 19, 2024 10:27am LING (dyspnea on exertion) chronic May 19, 2024 10:27am Essential hypertension chronic [facility] 2024 10:27am Mixed hyperlipidemia chronic [facility] 2024 10:27am [facility] Work Phone: 1(373) 234-954803-06-2025 Evaluation note* Diagnosis Onset Date Resolution Status Admit Date Bilateral lower extremity edema custom harvester leonard May 07, 2024 1:24pm BPH (benign prostatic hyperplasia) chronic May 07, 2024 1:24pm CKD (chronic kidney disease) , stage III chronic May 07, 2024 1:24pm Essential hypertension chronic [facility] 2024 1:24pm GERD (gastroesophageal reflu x disease) chronic May 07, 2024 1:24pm Mixed hyperlipidemia chronic [facility] 2024 1:24pm Atherosclerotic heart diseas e of [place] coronary artery without angina pectoris chronic May 19, 2024 10:27am Claudication of both lower extremities chronic May 19, 2024 10:27am LING (dyspnea on exertion) chronic May 19, 2024 10:27am Essential hypertension chronic [facility] 2024 10:27am Mixed hyperlipidemia chronic [facility] 2024 10:27am Neck muscle strain acute August 022024 10:58am [facility] Work Phone: 1(398) 889-565703-06-2025 Evaluation note* Diagnosis Onset Date Resolution Status Admit Date Bilateral lower extremity edema custom harvester leonard May 07, 2024 1:24pm BPH (benign prostatic hyperplasia) chronic May 07, 2024 1:24pm CKD (chronic kidney disease) , stage III chronic May 07, 2024 1:24pm Essential hypertension chronic [facility] 2024 1:24pm GERD (gastroesophageal reflu x disease) chronic May 07, 2024 1:24pm Mixed hyperlipidemia chronic [facility] 2024 1:24pm Atherosclerotic heart diseas e of [place] coronary artery without angina pectoris chronic May 19, 2024 10:27am Claudication of both lower extremities chronic May 19, 2024 10:27am LING (dyspnea on exertion) chronic May 19, 2024 10:27am Essential hypertension chronic [facility] 2024 10:27am Mixed hyperlipidemia chronic [facility] 2024 10:27am Neck muscle strain acute August 022024 10:58am Atherosclerotic heart diseas e of [place] coronary artery without angina pectoris chronic August 26, 2024 8:53am Claudication of both lower extremities chronic August 26, 2024 8:53am LING (dyspnea on exertion) chronic August 26, 2024 8:53am Essential hypertension chronic 2024 8:53am Mixed hyperlipidemia chronic August 26, 2024 8:53am [facility] Work Phone: [phone] 500-406101-08-2025 Evaluation note* Diagnosis Onset Date Resolution Status Admit Date Atherosclerotic heart diseas e of [place] coronary artery without angina pectoris chronic March 11 2:17pm Claudication of both lower extremities chronic March 11 2:17pm LING (dyspnea on exertion) chronic March 11, 2024 2:17pm Essential hypertension chronic Ja nuary 2024 2:17pm Mixed hyperlipidemia chronic Ariel jose 2024 2:17pm Bilateral lower extremity edema custom harvester leonard May 07, 2024 1:24pm BPH (benign prostatic hyperplasia) chronic May 07, 2024 1:24pm CKD (chronic kidney disease) , stage III chronic May 07, 2024 1:24pm Essential hypertension chronic [facility] 2024 1:24pm GERD (gastroesophageal reflu x disease) chronic May 07, 2024 1:24pm Mixed hyperlipidemia chronic [facility] 2024 1:24pm Atherosclerotic heart diseas e of [place] coronary artery without angina pectoris chronic May 19, 2024 10:27am Claudication of both lower extremities chronic May 19, 2024 10:27am LING (dyspnea on exertion) chronic May 19, 2024 10:27am Essential hypertension chronic [facility] 2024 10:27am Mixed hyperlipidemia chronic Chava h 2024 10:27am [facility] Work Phone: 1([phone]) 632-335612-11-2024 Telephone encounter Note* Telephone Encounter - Maia Delgadillo - 02/12/2024 1:14 PM EST Patient called and LM to cancel his appt for today (02/12/24) and to reschedule to March if possible. Reached out to pt, call goes straight byron GUTIERREZ LMTCO to reschedule. [id number] Miscellaneous Notes* Telephone Encounter - Maia Medranojossiebarbara - 02/12/2024 1:14 PM EST Patient called and LM to cancel his appt for today (02/12/24) and to reschedule to March if possible. Reached out to pt, call goes straight byron VM. LMTCO to reschedule. documented in this [facility]11-08-2024 NoteReferral received for BPH and ED, scanned into media. Patient requested the [place] office. Appt scheduled 02/12/[address] Lim in [place].[facility]11-08-2024 Telephone encounter Note* Telephone Encounter - Maia Medranoshabana - 01/10/2024 8:50 AM EST Referral received for BPH and ED, scanned into media. Patient requested the [place] office. Appt scheduled 02/12/[address] Lim in [place]. [id number] Miscellaneous Notes* Telephone Encounter - Maiavarinder Delgadillo - 01/10/2024 8:50 AM EST Referral received for BPH and ED, scanned into media. Patient requested the [place] office. Appt scheduled 02/12/[address] Lim in [place]. documented in this [facility]04-10-2024 NoteHNO ID: [id number] Author: ADALI SULILVAN RN Service: Nursing Author Type: Registered Nurse Type: Nursing Progress Note Filed: 06/12/2023 14:09 Note Text: Dr Moore notified of elevated BP okay to dc to home, to take home meds once arriving [facility]04-10-2024 NoteHNO ID: [id number] Author: LILIANA MCKEON AA Service: ? 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 NoteHNO ID: [id number] Author: GODWIN CAMACHO RN Service: ? Author [...] directed. Bring copy of Living Will/Power of Missile Technician. Do not smoke or chew. If you [...] the Surgery Center. UPON ARRIVAL: Access to [facility] is located on [address]. [employer] parking is available for your convenience from [...] a time are permitted in your preprocedure room.[facility]04-09-2024 NoteHNO ID: [id number] Author: DILLON PRUETT PA-C Service: ? Author Type: Physician Edge Stainer Machine Type: Progress Notes Filed: 06/11/2023 08:21 Note [...] updated instructions for the morning of your procedure.[facility] Diagnosis Onset Date Resolution Status Atherosclerotic heart diseas e of [place] coronary artery without angina pectoris chronic Essential hypertension chron ic Mixed hyperlipidemia [facility] Work Phone: Evaluation note* Diagnosis Onset Date Resolution Status Essential hypertension chron ic Mixed hyperlipidemia chronic Nephropathy chronic Type 1 diabetes mellitus [facility] Work Phone: Evaluation note* Diagnosis Onset Date Resolution Status Essential hypertension chron ic Mixed hyperlipidemia chronic Nephropathy chronic Type 1 diabetes mellitus chr onic Atherosclerotic heart diseas e of [place] coronary artery without angina pectoris chronic Essential hypertension chron ic Mixed hyperlipidemia chronic Bradycardia acute Hyperkalemia acute Atherosclerotic heart diseas e of [place] coronary artery without angina pectoris chronic Essential hypertension chron ic Mixed hyperlipidemia chronic [facility] Work Phone: Evaluation note* Diagnosis Onset Date Resolution Status Health care maintenance acut e Left elbow pain acute Right renal artery stenosis acute Essential hypertension chron ic Hyperkalemia chronic Nephropathy chronic Type 1 diabetes mellitus chr onic Bradycardia acute Atherosclerotic heart diseas e of [place] coronary artery without angina pectoris chronic Essential hypertension chron ic Hyperkalemia chronic Mixed hyperlipidemia chronic Sinusitis noneactive [facility] Work Phone: Evaluation note* Diagnosis Onset Date Resolution Status Bilateral lower extremity edema chronic BPH (benign prostatic hyperplasia) chronic Essential hypertension chron ic Hypothyroidism chronic Type 1 diabetes mellitus chr onic Atherosclerotic heart diseas e of [place] coronary artery without angina pectoris chronic Essential hypertension chron ic Mixed hyperlipidemia chronic [facility] Work Phone: Evaluation note* Diagnosis Onset Date Resolution Status Bilateral lower extremity edema chronic BPH (benign prostatic hyperplasia) chronic Essential hypertension chron ic Hypothyroidism chronic Type 1 diabetes mellitus chr onic Atherosclerotic heart diseas e of [place] coronary artery without angina pectoris chronic Essential hypertension chron ic Mixed hyperlipidemia chronic Acute sinusitis acute [facility] Work Phone: Evaluation note* Diagnosis Onset Date Resolution Status Acute sinusitis acute Fatigue acute Preoperative evaluation to r ule out surgical contraindication acute Skin cyst acute Bilateral lower extremity edema chronic BPH (benign prostatic hyperplasia) chronic Essential hypertension chron ic Sinusitis chronic Type 1 diabetes mellitus chr onic [facility] Work Phone: Evaluation note* Diagnosis Onset Date Resolution Status Fatigue acute Preoperative evaluation to r ule out surgical contraindication acute Skin cyst acute Bilateral lower extremity edema chronic BPH (benign prostatic hyperplasia) chronic Essential hypertension chron ic Sinusitis chronic Type 1 diabetes mellitus chr onic Maxillary sinusitis, chronic chronic Sinobronchitis acute [facility] Work Phone: Evaluation note* Diagnosis Onset Date Resolution Status Fatigue acute Preoperative evaluation to r ule out surgical contraindication acute Skin cyst acute Bilateral lower extremity edema chronic BPH (benign prostatic hyperplasia) chronic Essential hypertension chron ic Sinusitis chronic Type 1 diabetes mellitus chr onic Maxillary sinusitis, chronic chronic Sinobronchitis acute Abnormal heart rhythm acute Pneumonia acute [facility] Work Phone: Evaluation note* Diagnosis Onset [...] contraindication acute Atherosclerotic heart diseas e of [place] coronary artery without angina pectoris chronic Essential hypertension chron ic Type 1 diabetes mellitus chr onic [facility] Work Phone: Hospital Discharge instructions Additional Instructions Follow-up with your cardiology team as soon as possible give their office a call for an appointment as soon as possible. Stop taking doxazosin and start taking the clonidine that was sent to your pharmacy as prescribed. Ensure you take a dose tonight. Return with worsening symptoms or other concerns.[facility] Work Phone: Progress note Author Chacorta Porter [facility] Note Date/Time November 26, 2024 10:40am [facility] [address] [place] [address]. [address] [place] [address] OFFICE VISIT Date of Service: 11/26/24 MR#: [id number] Acct: [id number] Name: OLIVIER MENDOZA Rep #: [id number] : 1960 Provider: SHAUN Porter Age/Sex: 63/M Location: [facility] Status: Signed HPI HPI History of [...] air Intake Visit Reasons: 3 M FU Testing Tech Required: No Accompanied by: Self Is patient in pain?: No Allergies latex Allergy (Unknown, Verified 11/26/24 09:58) Unknown Surxxta-HYB-GgE Reductase Inhibitor (Evumzvy-Ako-Tgp Reductase Inhibitor) Adverse Reaction (Severe, Verified 11/26/24 [...] but insurance will not cover. [facility] Medical History Chronic sinusitis Erectile dysfunction Claudication of both lower extremities Hilar density Abnormal chest xray Preop cardiovascular exam CKD (chronic kidney disease), stage III GERD (gastroesophageal reflux disease) Chest congestion Preoperative evaluation to rule out surgical contraindication Sinusitis Skin cyst Fatigue Left elbow pain Health care maintenance Proteinuria Nephropathy Bilateral lower extremity edema COVID-19 vaccine series completed Atherosclerotic heart disease of [place] coronary artery without angina pectoris Mixed hyperlipidemia [...] ejection fraction. Cardiac Catheterization 05/09/2020: PROCEDURE(S) PERFORMED SM69-IBK/COR/LV CLINICAL PROFILE AND INDICATIONS Indications: Suspected CAD [...] options. He is encouraged to follow with cloth folder machine and silk screen etcher for diabetes and kidney related component. Will consider ongoing medication adjustment as needed. (2) Atherosclerotic heart disease of [place] coronary artery without angina pectoris: Status: Chronic Qualifiers: Crow vs. transplanted heart: [place] heart Qualified Code(s): I25.10 -Atherosclerotic heart disease of [place] coronary artery without angina pectoris Comment: Diffuse coronary artery disease with small vessels noted in the entire coronary vasculature. [facility] 05/09/20 Plan: Patient has a history [...] as necessary. 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 transplanted heart: [place] heart Mixed hyperlipidemia E78.2 LING (dyspnea on exertion) R06.09 Claudication of both lower extremities I73.9 Carotid artery disease I77.9 Coding Level of Care Code Off vis,est,level 4 Diagnoses Essential hypertension I10 Atherosclerosis of [place] coronary artery of [place] heart without angina pectoris I25.10 Crow vs. transplanted heart: [place] heart Mixed hyperlipidemia E78.2 LING (dyspnea on exertion) R06.09 Claudication of both lower extremities I73.9 Carotid artery disease I77.9 Clinical Quality Measures Falls Risk Screening/Assistive Devices Have you fallen in the past year?: No Cardiac Ejection fraction %: 65 11/26/24 1315 <Electronically signed by Chacorta DUNN> Date _ Chacorta DUNN Cosigner Signature: Date (if applicable) CC: ~ [facility] Work Phone: Reason for referral (narrative)No reason for referral information [facility]WM[facility] Work Phone: Summary Purpose Family History Relationship [...] Will No November 07 8:38pm Power of Missile Technician No November 07, 2020 8:38pm Advance Directive Response Recorded Date/ Time Advance Directives No October 24, 2020 7:34am Living Will No November 07 7:38pm Power of Missile Technician No November 07, 2020 7:38pm Advance Directive Response Recorded Date/ Time Advance Directives No October 24, 2020 8:34am Advance Directive Response Recorded Date/ Time Do you have a Healthcare Power of Missile Technician? No August 04, 2024 2:07pm Advance Directives No October 24, 2020 8:34am Chief Complaint and Reason for Visit Chief Complaint OVERDUE FOR FU EORDER FROM [facility]ES Reason for Visit Atherosclerotic hear t disease of [place] coronary artery without angina pectoris Essential hypertension Mixed hyperlipidemia Chief Complaint FOLLOW UP Reason for Visit Essential hypertensi on Mixed hyperlipidemia Nephropathy Type 1 diabetes mellitus Chief Complaint FOLLOW UP 6 M FU 2 DRS/ 2 ORDERS 6 wk FU INT LABS Reason for Visit Essential hypertensi on Mixed hyperlipidemia Nephropathy Type 1 diabetes mellitus Atherosclerotic heart disease of [place] coronary artery without angina pectoris Essential hypertension Mixed hyperlipidemia Bradycardia Hyperkalemia Atherosclerotic heart disease of [place] coronary artery without angina pectoris Essential hypertension Mixed hyperlipidemia Chief Complaint FOLLOW UP 6 M FU 2 DRS/ 2 ORDERS 6 wk FU INT LABS HYPERTENSION EORDER-BMP/ ADD ADDT ORDER Reason for Visit Essential hypertensi on Mixed hyperlipidemia Nephropathy Type 1 diabetes mellitus Atherosclerotic heart disease of [place] coronary artery without angina pectoris Essential hypertension Mixed hyperlipidemia Bradycardia Hyperkalemia Atherosclerotic heart disease of [place] coronary artery without angina pectoris Essential hypertension Mixed hyperlipidemia Chief Complaint HYPERTENSION EORDER-BMP/ ADD ADDT ORDER 3 M FU 6 wk FU sinus congestion 3 DRS/ 3 ORDERS Reason for Visit 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 Left elbow pain Right renal artery stenosis Essential hypertension Hyperkalemia Nephropathy Type 1 diabetes mellitus Bradycardia Atherosclerotic heart disease of [place] coronary artery without angina pectoris Essential hypertension Hyperkalemia Mixed hyperlipidemia Sinusitis Chief Complaint 3 m fu 6 M FU Reason for Visit Bilateral lower extr emity edema BPH (benign prostatic hyperplasia) Essential hypertension Hypothyroidism Type 1 diabetes mellitus Atherosclerotic heart disease of [place] coronary artery without angina pectoris Essential hypertension Mixed hyperlipidemia Chief Complaint 3 m fu 6 M FU CONCERN FOR SINUS INFECTION 2 DRS/ 2 ORDERS Reason for Visit Bilateral lower extr emity edema BPH (benign prostatic hyperplasia) Essential hypertension Hypothyroidism Type 1 diabetes mellitus Atherosclerotic heart disease of [place] coronary artery without angina pectoris Essential hypertension [...] out surgical contraindication Atherosclerotic heart disease of [place] coronary artery without angina pectoris Essential hypertension [...] Admit Date Atherosclerotic heart diseas e of [place] coronary artery without angina pectoris March 11, [...] 2024 1 :24pm GERD (gastroesophageal reflux disease) [facility] 2024 1:24pm Mixed hyperlipidemia May 07, 2024 1:2 4pm Atherosclerotic heart diseas e of [place] coronary artery without angina pectoris May 19, 2024 10:27am Claudication of both lower extremities [facility] 2024 10:27am LING (dyspnea on exertion) May [...] 2024 1 :24pm GERD (gastroesophageal reflux disease) [facility] 2024 1:24pm Mixed hyperlipidemia May 07, 2024 1:2 4pm Atherosclerotic heart diseas e of [place] coronary artery without angina pectoris May 19, 2024 10:27am Claudication of both lower extremities [facility] 2024 10:27am LING (dyspnea on exertion) May [...] 2024 1 :24pm GERD (gastroesophageal reflux disease) [facility] 2024 1:24pm Mixed hyperlipidemia May 07, 2024 1:2 4pm Atherosclerotic heart diseas e of [place] coronary artery without angina pectoris May 19, 2024 10:27am Claudication of both lower extremities [facility] 2024 10:27am LING (dyspnea on exertion) May [...] 2024 1 :24pm GERD (gastroesophageal reflux disease) [facility] 2024 1:24pm Mixed hyperlipidemia May 07, 2024 1:2 4pm Atherosclerotic heart diseas e of [place] coronary artery without angina pectoris May 19, 2024 10:27am Claudication of both lower extremities [facility] 2024 10:27am LING (dyspnea on exertion) May 19 10:27am Essential hypertension May 19, 2024 10:27am Mixed hyperlipidemia May 19, 2024 10 :27am Neck muscle strain August 20, 2024 10:5 8am Atherosclerotic heart diseas e of [place] coronary artery without angina pectoris August 26, 2024 8:53am Claudication of both lower extremities [facility] 2024 8:53am LING (dyspnea on exertion) August [...] 8 :53am Atherosclerotic heart diseas e of [place] coronary artery without angina pectoris August 26, 2024 8:53am Claudication of both lower extremities [facility] 2024 8:53am LING (dyspnea on exertion) August [...] 8 :53am Atherosclerotic heart diseas e of [place] coronary artery without angina pectoris August 26, [...] 8 :53am Atherosclerotic heart diseas e of [place] coronary artery without angina pectoris August 26, 2024 8:53am Claudication of both lower extremities [facility] 2024 8:53am LING (dyspnea on exertion) August [...] 025 9:29am Atherosclerotic heart diseas e of [place] coronary artery without angina pectoris November 26, [...] 025 9:29am Atherosclerotic heart diseas e of [place] coronary artery without angina pectoris November 26, [...] section and content) DATE CREATED AUTHOR 11/21/2020 [facility] DATE CREATED AUTHOR AUTHOR'S ORGANIZ ATION 04/16/2023 [facility] DATE CREATED AUTHOR AUTHOR'S ORGANIZ ATION 07/14/2023 [facility] DATE CREATED AUTHOR AUTHOR'S ORGANIZ ATION 02/16/2024 [facility] DATE CREATED AUTHOR AUTHOR'S ORGANIZ ATION 12/17/2024 [facility] Goals (unrecognized section and content) Goals may [...] Provider, Refer ring Provider Active Chacorta Porter CLINICAL DATA MANAGER, CLINICAL DATA MANAGER-C Attending Provider Active Team Status: Active Member Role Status Dates Dr. Sherice Avendano MD Primary Care Provider Active Dr. Nicholas Teixeira MD Attending Provider Active Gennaro Fuentes CLINICAL DATA MANAGER, CLINICAL DATA MANAGER-C Referring Provider Active Team Status: Inactive Member Role Status Dates Dr. Sherice Avendano MD Primary Care Provider, Refer ring Provider Active ANIL Alba Attending Provider Active Team Status: Inactive Member Role Status Dates Dr. Sherice Avendano MD Primary Care Provider Active Gennaro Fuentes CLINICAL DATA MANAGER, CLINICAL DATA MANAGER-C Attending Provider, Referring P rovider Active Team Status: Inactive Member Role Status Dates Dr. Sherice Avendano MD Primary Care Provider Active Gennaro Fuentes CLINICAL DATA MANAGER, CLINICAL DATA MANAGER-C Attending Provider, Referring P rovider Active Dr. [...] Care Provider, Refer ring Provider Active Moi Wcik PA, PA Attending Provider Active Team Status: [...] PA Attending Provider, Referring Prov ider Active Registrar Assistant Relationship Specialty Start Date End Date Jhonny Lim MD [address] [place] [address] Surgeon Urology 01/10/24 Registrar Assistant Relationship Specialty Start Date End Date Jhonny Lim MD [address] [place] [address] Surgeon Urology 01/10/24 Team Status: Inactive Member Role Status Dates Gennaro Fuentes NP, CLINICAL DATA MANAGER-C Attending Provider Active Start: February 24, 2024 End: February 24, 2024 Gennaro Fuentes CLINICAL DATA MANAGER, CLINICAL DATA MANAGER-C Referring Provider Active Start: February 24, 2024 [...] 2024 End: March 10, 2024 Chacorta Porter CLINICAL DATA MANAGER, CLINICAL DATA MANAGER-C Other Provider Active Start : March 10, 2024 End: March 10, 2024 Gennaro Fuentes CLINICAL DATA MANAGER, CLINICAL DATA MANAGER-C Other Provider Active Sta rt: March 10, [...] 2024 End: May 19, 2024 Chacorta Porter CLINICAL DATA MANAGER, CLINICAL DATA MANAGER-C Attending Provider Active S tart: May 19, 2024 End: May 19, 2024 Team Status: Inactive Member Role Status Dates Dr. Sherice Avendano MD Primary Care Provider Active Start: June 10, 2024 End: June 10, 2024 Chacorta Porter CLINICAL DATA MANAGER, CLINICAL DATA MANAGER-C Attending Provider Active S tart: June 10, 2024 End: June 10, 2024 Chacorta Porter CLINICAL DATA MANAGER, CLINICAL DATA MANAGER-C Referring Provider Active S tart: June 10, [...] 2024 End: August 26, 2024 Chacorta Porter CLINICAL DATA MANAGER, CLINICAL DATA MANAGER-C Attending Provider Active S tart: August 26, [...] 2024 End: August 26, 2024 Chacorta Porter CLINICAL DATA MANAGER, CLINICAL DATA MANAGER-C Attending Provider Active S tart: August 26, [...] End: August 26, 2024 Chacorta Porter NP CLINICAL DATA MANAGER-C Attending physician Active Start: August 26, 2024 [...] 2024 End: November 26, 2024 Chacorta Porter CLINICAL DATA MANAGER, CLINICAL DATA MANAGER-C Attending physician Active Start: November 26, 2024 End: November 26, 2024 Team Status: Active Member Role/Relationship Status Dates Dr. Sherice Avendano MD Primary care physician Activ e Start: December 01, 2024 Chacorta Porter CLINICAL DATA MANAGER, CLINICAL DATA MANAGER-C Attending physician Active Start: December 01, 2024 Chacorta Porter CLINICAL DATA MANAGER, CLINICAL DATA MANAGER-C Referring Provider Active S tart: December 01, [...] 2024 End: August 26, 2024 Chacorta Porter CLINICAL DATA MANAGER, CLINICAL DATA MANAGER-C Attending physician Active Start: August 26, 2024 [...] 2024 End: November 26, 2024 Chacorta Porter CLINICAL DATA MANAGER, CLINICAL DATA MANAGER-C Attending physician Active Start: November 26, 2024 End: November 26, 2024 Team Status: Inactive Member Role/Relationship Status Dates Dr. Sherice Avendano MD Primary care physician Activ e Start: December 01, 2024 End: December 01, 2024 Chacorta Porter CLINICAL DATA MANAGER, CLINICAL DATA MANAGER-C Attending physician Active Start: December 01, 2024 End: December 01, 2024 Chacorta Porter CLINICAL DATA MANAGER, CLINICAL DATA MANAGER-C Referring Provider Active S tart: December 01, [...] 2024 End: November 26, 2024 Chacorta Porter CLINICAL DATA MANAGER, CLINICAL DATA MANAGER-C Attending physician Active Start: November 26, 2024 End: November 26, 2024 Team Status: Inactive Member Role/Relationship Status Dates Dr. Sherice Avendano MD Primary care physician Activ e Start: December 01, 2024 End: December 01, 2024 Chacorta Porter CLINICAL DATA MANAGER, CLINICAL DATA MANAGER-C Attending physician Active Start: December 01, 2024 End: December 01, 2024 Chacorta Porter CLINICAL DATA MANAGER, CLINICAL DATA MANAGER-C Referring Provider Active S tart: December 01, 2024 End: December 01, 2024 Team Status: Active Member Role/Relationship Status Dates Dr. Sherice Avendano MD Primary care physician Activ e Start: December 01, 2024 Dr. Nicholas Teixeira MD Attending physician Active Start: December 01, 2024 Chacorta Porter CLINICAL DATA MANAGER, CLINICAL DATA MANAGER-C Referring Provider Active S tart: December 01, [...] BE BASED ON THE PRIMARY CLINICAL RECORDS. [facility] Data [facility]. provides no warranty or guarantee of the accuracy or completeness of information in this document.
[2025-02-02 23:54] LABS: Troponin T High Sens 2 HR 59 ng/L (<=22)
[2025-02-03] VITALS (10 sets, daily range): BP systolic 137–181; BP diastolic 48–89; PULSE 72–87; RESP 16–19; TEMP 35.9–36.6; O2SAT 94–100; BMI 25.0
[2025-02-03 00:11] LABS: D-Dimer Quantitative (DVT/PE) 1.62 FEU/ug/m (0.27-0.49)
[2025-02-03] MEDS: Remdesivir 200 MG in 0.9% Normal Saline (250mL Bag) 210 ML 250 MG IV (00:15)
[2025-02-03 00:30] LABS: Procalcitonin 0.21 ng/mL (<=0.10)
--- NOTE | 2025-02-03 00:55 | CPS ---
Pt was switched from a 40% Venturi Mask to a 6 lpm nasal cannula.
[2025-02-03 01:05] LABS: Ferritin 125 ng/mL (37-417)
[2025-02-03 02:13] LABS: CPK Total, Creatine Kinase 32 U/L (24-195); CRP 15.50 mg/L (0.0-3.0); LDH 207 U/L (87-241)
[2025-02-03 02:14] LABS: Troponin T High Sens 4 HR 61 ng/L (<=22)
[2025-02-03 05:47] LABS: Hematocrit 30.0 % (40-54); Hemoglobin 9.8 g/dL (13.0-16.5); Immature Granulocytes Count 0.020 X10^3/uL (0.0-0.0); Mean Corp Hgb Conc 32.7 g/dL (32-36); Mean Corpuscular Volume 89.6 fL (80-94); Mean Platelet Vol. 8.8 fl (6.2-12.0); NRBC Flagged by Analyzer 0 % (0-5); POSITIVE DIFFERENTIAL YES; Platelet Count 293 K/mm3 (150-450); RBC Distribution Width CV 15.1 % (11.6-14.6); RBC Distribution Width SD 49.4 fl (35.1-43.9); Red Blood Count 3.35 M/mm3 (4.6-6.2); White Blood Count 5.3 K/mm3 (4.4-11.0)
[2025-02-03] MEDS: Heparin Injection (Vial) 5,000 UNIT/ML VIAL 5000 UNIT SC (06:12)
[2025-02-03 06:15] LABS: AST(SGOT) 17 U/L (<=37); Alanine Aminotransfer ALT/SGPT 16 U/L (<=46); Albumin, Serum 3.2 g/dL (3.4-4.8); Alkaline Phosphatase 140 U/L (40-129); Anion Gap 12 (5-15); BUN 32 mg/dL (4-19); BUN/Creat Ratio 12.5 RATIO (10-20); Calcium,Total 8.0 mg/dL (7.6-11.0); Carbon Dioxide 18.4 mmol/L (21.0-32.0); Chloride 101 mmol/L (98-108); Estimated Creatinine Clearance 26.23 ml/min (50-250); Globulin 3.0 g/dL (2.2-4.2); Glucose 348 mg/dL (70-99)
[2025-02-03 06:19] LABS: Potassium 6.3 mmol/L (3.3-5.1)
[2025-02-03 07:36] LABS: Potassium 5.9 mmol/L (3.3-5.1)
--- NOTE | 2025-02-03 07:47 | PN.HOSP_ITS ---
Reason for Visit Chief Complaint: Dyspnea. Objective Data Objective Data Vital Signs: Vital Signs Temp Pulse Resp BP Pulse Ox O2 Del Method O2 Flow Rate 96.6 F L 84 16 181/89 H 100 Nasal Cannula 2 02/03/25 06:00 02/03/25 07:22 02/03/25 07:22 02/03/25 06:00 02/03/25 07:22 02/03/25 07:22 02/03/25 07:22 FiO2 40 02/03/25 00:55 Oxygen Flow Rate (L/min) 2 Oxygen Delivery Method Nasal Cannula Weight: 72.5 kg Body Mass Index (BMI) 25.0 Intake & Output: Intake and Output for Last 24 Hours 02/01/25 02/02/25 02/03/25 23:59 23:59 23:59 Intake Total 50 / 50 500 / 500 Output Total 500 / 500 Balance 50 / 50 0 / 0 Lab / Micro Data 02/03/25 05:30 02/03/25 07:15 Labs: Laboratory Results - last 24 hr 02/02/25 21:00: WBC 6.9, RBC 3.53 L, Hgb 10.1 L, Hct 31.1 L, MCV 88.1, MCH 28.6, MCHC 32.5, RDW Std Deviation 48.2 H, RDW Coeff of Jesus 15.1 H, Plt Count 326, MPV 8.9, Immature Gran % (Auto) 0.100, Neut % (Auto) 79.2 H, Lymph % (Auto) 7.1 L, M chance % (Auto) 12.8 H, Eos % (Auto) 0.4, Baso % (Auto) 0.4, Absolute Neuts (auto) 5.5, Absolute Lymphs (auto) 0.49 L, Nucleated RBC % 0, PT 14.1, INR 1.1, APTT 25.0, D-Dimer Quant (PE/DVT) 1.62 H*, Sodium 131 L, Potassium 5.2 H, Chloride 99, Carbon Dioxide 21.9, Anion Gap 10, BUN 30 H, Creatinine 2.38 H, Estim Creat Clear Calc 28.54 L, Est GFR (MDRD) Non-Af 29 L, BUN/Creatinine Ratio 12.6, G lucose 263 H, Lactic Acid < 1.0, Calcium 8.2, Ferritin 125, Total Bilirubin 0.32, Direct Bilirubin 0.15, AST 19, ALT 20, Alkaline Phosphatase 153 H, Lactate Dehydrogenase 207, Total Creatine Kinase 32, Troponin T High Sens 56 H* D, C- React Prot Ext Range 15.50 H, [place] [address] H, Total Protein 6.4, Albumin 3.4, Globulin 2.9, Procalcitonin 0.21 H 02/02/25 23:25: Troponin T Hi Sens 2 Hr 59 H* 02/03/25 00:23: POC Glucose 222 H 02/03/25 01:44: Troponin T Hi Sens 4Hr 61 H* 02/03/25 05:30: WBC 5.3, RBC 3.35 L, Hgb 9.8 L, Hct 30.0 L, MCV 89.6, MCH 29.3, MCHC 32.7, RDW Std Deviation 49.4 H, RDW Coeff of Jesus 15.1 H, Plt Count 293, MPV 8.8, Immature Gran % (Auto) 0.400, Neut % (Auto) 91.9 H, Lymph % (Auto) 5.6 L, Rooks % (Auto) 1.9, Eos % (Auto) 0.0, Baso % (Auto) 0.2, Absolute Neuts (auto) 4.9, Absolute Lymphs (auto) 0.30 L, Nucleated RBC % 0, Sodium 131 L, Potassium 6.3 H*, Chloride 101, Carbon Dioxide 18.4 L, Anion Gap 12, BUN 32 H, Creatinine 2.59 H, Estim Creat Clear Calc 26.23 L, Est GFR (MDRD) Non-Af 26 L, BUN/Creatinine Ratio 12.5, Glucose 348 H, Calcium 8.0, Total Bilirubin 0.26, AST 17, ALT 16, Alkaline Phosphatase 140 H, Total Protein 6.2, Albumin 3.2 L, Globulin 3.0, Albumin/Globulin Ratio 1.0 02/03/25 06:05: POC Glucose 327 H 02/03/25 07:15: Potassium 5.9 H Micro: Microbiology 02/02/25 21:00 Mucosa - Nose SARS-CoV-2, Influenza & RSV (PCR) - Final SARS-CoV-2 (COVID 19 PCR) Radiography Diagnostic Testing: Radiology Impression Chest X-Ray 02/02/25 19:55 IMPRESSION: Bilateral lower lobe opacities likely chronic interstitial lung disease. Atypical pneumonia not excluded.. Reading Location: [facility] Chest CTA 02/02/25 20:37 IMPRESSION: No pulmonary arterial emboli. Borderline cardiomegaly. Fluid overload with small bilateral pleural effusions, interstitial and alveolar edema. Infectious/inflammatory component of ground-glass airspace opacities may be present. Reading Location: [id number]
--- NOTE | 2025-02-03 07:50 | ECHOL_ITS ---
Reason For Study Reason For Study: CHF Procedure This was a limited 2D transthoracic echocardiogram. COVID + protocol. Exam performed portable in patient room. Left Ventricle Normal LV size. Mild concentric left ventricular hypertrophy. The left ventricular ejection fraction is 60 %. Stage 1 diastolic dysfunction. Right Ventricle Normal right ventricle. Atria The left atrium is mildly enlarged. Normal right atrium. Mitral Valve Moderate mitral annular calcification. Trivial mitral valve insufficiency. Tricuspid Valve Trivial tricuspid valve insufficiency. Unable to estimate RV systolic pressure due to insufficient tricuspid regurgitant envelope. Aortic Valve Trisinus/trileaflet aortic valve. Pulmonic Valve The pulmonic valve is not well visualized. Great Vessels Normal sized aortic root. Pericardium/Pleural No pericardial effusion. MMode/2D Measurements & Calculations LVIDd: 5.5 cm IVSd: 1.2 cm LAV(MOD- bp): 58.1 ml LVIDs: 3.3 cm LVPWd: 0.95 cm LAV(MOD- bp) Indexed: 30.5 ml/m2 FS: 39.8 % LAV(MOD- sp2): 59.2 ml LAV(MOD- sp4): 54.8 ml SV(MOD- sp4): 54.3 ml LVAd ap4: 32.2 cm2 LVAd ap2: 34.7 cm2 LVLd ap4: 8.6 cm LVLd ap2: 8.6 cm SI(MOD- sp4): 28.5 ml/m2 EDV(MOD-sp4): 100.8 ml EDV(MOD-sp2): 119.3 ml EDV(sp4-el): 102.5 ml EDV(sp2-el): 118.3 ml LVAs ap4: 19.9 cm2 LVAs ap2: 21.4 cm2 LVLs ap4: 7.4 cm LVLs ap2: 7.5 cm ESV(MOD-sp4): 46.6 ml ESV(MOD-sp2): 52.7 ml ESV(sp4-el): 45.3 ml ESV(sp2-el): 51.7 ml EF(MOD-sp4): 53.8 % EF(MOD-sp2): 55.8 % EF(sp4-el): 55.8 % SV(MOD-sp2): 66.6 ml SV(sp4-el): 57.2 ml LA A4 area: 19.8 cm2 SI(MOD-sp2): 34.9 ml/m2 TAPSE: 1.8 cm RA A4 area: 13.2 cm2 Time Measurements MV dec time: 0.16 sec Doppler Measurements & Calculations MV E max francisco: 112.1 cm/sec Lat Peak E' Francisco: 10.8 cm/sec Med Peak E' Francisco: 8.3 cm/sec MV A max francisco: 105.2 cm/sec E/E' lat: 10.3 E/E' med: 13.5 MV E/A: 1.1 MV dec slope: 679.6 cm/sec2 ECHO/Echo, Limited Study Interpretation Summary Mild concentric left ventricular hypertrophy. The left ventricular ejection fraction is 60 %. Stage 1 diastolic dysfunction. The left atrium is mildly enlarged. Moderate mitral annular calcification. Ordering Physician: Purnima Renae Referring Physician: Madhav Avendano Performed By: Talya Medina RDCS
[2025-02-03] MEDS: Insulin Glargine-YFGN 100 UNIT/ML Pen 40 UNIT SC (10:04)
--- NOTE | 2025-02-03 10:40 | CASEMGMT ---
LAURY BLACKWELL Face to Face with patient for initial transition planning/care coordination assessment. RN CM introduced self and role at [facility]. Patient sitting up in bed, alert and oriented. Patient willing to participate in assessment and is able to answer all questions appropriately. Care providers, pharmacy, and demographics verified. Strata: 3 PCP: [facility] Specialists: Hydraulic Billet Maker Laureen; Emanuel, car trimmer; Boo, synchronizer; Geoffrey, urologist; Preferred Pharmacy: [facility] Insurance: [employer] [facility] Prescription Benefit: yes Living Will/HPOA: none LNOK: Living Arrangements: Patient lives with in a single story home with bed and bath on first floor, 3 steps to enter the home. Patietn states he is independent. Transportation: self, DME/HHC: Patient has glucometer at home. No previous HHC or SNF. Will monitor for home oxygen at discharge, prefers [employer] Patient wishes to discharge home, denies need for home health at this time. Patient states he has no further needs or concerns at this time. CM to follow for discharge planning needs that may arise. Disposition Plan: Patient to discharge home with family support and follow-up plans in place. Will monitor for home oxygen. Olga BOB, RN, CM
--- NOTE | 2025-02-03 16:35 | DS.PCM_ITS ---
Providers Date of Admission: 02/02/25 Primary Care Physician: Dr. Madhav Avendano MD Reason For Visit: HYPOXIA, COVID Diagnosis Discharge Diagnosis (1) Acute hypoxic respiratory failure: Status: Acute Code(s): J96.01 - Acute respiratory failure with hypoxia (2) COVID-19: Status: Acute Code(s): U07.1 - COVID-19 Medications at Discharge Home Medications insulin lispro 100 unit/mL subcutaneous pen (Humalog KwikPen (U-100) Insulin) See Rx Instructions subcut TID e10.9 12/04/19 pen needle, diabetic 31 gauge x 3/16 (BD Ultra-Fine Mini Pen Needle) #100 ea 01/25/21 handicap placard See Rx Instructions .Route .COMPLEX disability #1 unit 05/25/21 compress.stocking,knee,reg,lrg #2 ea 01/09/24 tadalafil 5 mg tablet 5 mg PO DAILY 03/11/24 blood-glucose sensor ([employer]sStyle Daron 2 Plus Sensor device) 05/07/24 omeprazole 40 mg capsule,delayed release 40 mg PO QDAY PRN gerd 05/19/24 furosemide 40 mg tablet (Lasix) 40 mg PO QAM 08/26/24 insulin glargine 100 unit/mL (3 mL) subcutaneous pen (Basaglar KwikPen U-100 Insulin) 25 unit subcut QAM dm 08/26/24 amlodipine 10 mg tablet 10 mg PO QDAY #90 tabs 10/07/24 fluticasone propionate 50 mcg/actuation nasal spray,suspension 1 spray intranasal DAILY PRN nasal congestion #16 grams 10/19/24 levothyroxine 150 mcg tablet 150 mcg PO DAILY #90 tabs 10/19/24 cholecalciferol (vitamin D3) 50 mcg (2,000 unit) capsule 2,000 unit PO DAILY #90 caps 11/11/24 losartan 100 mg tablet 100 mg PO DAILY #90 TABLETS 11/11/24 sildenafil 25 mg tablet (Viagra) 25 mg PO QDAY PRN sexual activity #20 tabs 11/11/24 evolocumab 140 mg/mL subcutaneous pen injector (Repatha SureClick) 140 mg subcut Q2W cholesterol #2 mL 11/13/24 carvedilol 6.25 mg tablet 6.25 mg PO BID #180 tabs 11/26/24 levocetirizine 5 mg tablet (Xyzal) 5 mg PO QDAY #30 tabs 12/17/24 clonidine HCl 0.1 mg tablet 0.1 mg PO BID 02/02/25 flash glucose sensor (FreeStyle Daron 2 Sensor kit) 02/02/25 Hospital Course Procedures 2-D Echocardiogram (Pending at the time of discharge), EKG and - (Chest x- ray/CTA chest) Summary of Care Provided Minutes Spent on Discharge: 38 Hospital Course: Mr. Costa is a 64-year-old white male who presented to the emergency department at [facility] on 02/02/2025 with a chief complaint of shortness of breath. Patient reported he had recent sinus issues for about 2 weeks but no other symptoms but over the last 2 days he had the onset of cough and fatigue in addition to malaise with shortness of breath. Patient did admit later on that the symptoms have probably been going on for about 5 to 7 days as he went on a hunting trip. He stated that when he went on his hunting trip he stopped taking his Lasix for about 5 days because there are a lot of rest stops on his way there and he did not want to have to urinate a lot. Patient reported significant exertional dyspnea. He was initially 84% on room air and is not oxygen dependent at baseline. He did state that his nephew had gone hunting with him and he had been ill. Vital signs on presentation showed temperature 99.8, heart rate 87, blood pressure was 167/85, respiratory was 20 and pulse ox was 91% on room air on repeat however he did desat to 82% at his grace. He was placed on 2 L nasal cannula with improvement in his oxygen saturation 94%. CBC showed lymphopenia but was otherwise fairly unremarkable other than a chronic anemia with a hemoglobin of 10.1. Coags were normal. Chemistry panel showed mild hyponatremia the sodium of 131, hyperkalemia with potassium of 5.2 and elevated BUN/creatinine at 30 and 2.38. He has CKD at baseline. Lactic acid was unremarkable. Initial troponin was 56 and his proBNP was greater than 19,000. Chest x-ray showed bilateral lower lobe opacities with chronic interstitial changes and a CTA was done that showed no pulmonary emboli, borderline cardiomegaly, volume overload with bilateral small pleural effusions and interstitial edema and alveolar edema. COVID/influenza/RSV with positive COVID. He was admitted to the PCU given his heart failure diagnosis and placed on diuretics as well as IV Decadron 6 mg daily. This markedly elevated his blood sugars. He was transition to BiPAP temporarily in ED which was very short lived. By the a.m. of 02/03/2025 he was on room air. Patient was very anxious to go home and did not want to stay in the hospital any further. Given the fact that he was back to his baseline oxygen status walking independently around the room without any oxygen desaturations and stating he felt markedly improved I do feel that this was likely volume overload from him holding his Lasix for several days and after he got diuresed he improved significantly. Positive pressure from the BiPAP probably helped him diurese as well. I do not feel that his hypoxia was related to COVID. Given that and his marked issue with blood sugars given the steroids I will not discharge him with Decadron at this time. I have asked him not to take breaks in his Lasix dosing and utilize a urinal while he is traveling if it is problematic. He voiced understanding and state that was a good idea and he plan to do that in the future. He is to continue utilizing his incentive spirometer and Acapella for the next several days after discharge to enhance alveolar oxygen and carbon dioxide exchange to avoid atelectasis. The patient was able to be discharged home in stable condition on 02/03/2025. As noted he did have some hyperkalemia when he came in which was trending down. He was given a dose of Kayexalate. Renal function was relatively stable compared to previous and he should follow-up with nephrology as previously scheduled. I have asked him to follow-up with his terrazzo worker apprentice within the next month given his acute exacerbation which again was likely related to noncompliance with his Lasix due to his trip and his primary care physician within the next 2 weeks. Patient was discharged in stable condition. He should have a follow-up BMP in the next 3 to 5 days and I will ask him to call his terrazzo worker apprentice office or his primary care office to have this ordered and followed up. We did discuss staying another 24 hours but he was very interested in going home. I will follow-up on his echocardiogram and if any marked abnormalities or changes are present compared to his previous I will give him a call as well as his terrazzo worker apprentice office. Patient symptoms resolved and workup was completed more quickly than anticipated at the time of admission as he required transient BiPAP and was able to be transition to room air at rest and with exertion very quickly after admission therefore making him amenable to discharge. The patient was also very interested in going home. Discharge diagnoses: Acute hypoxic respiratory failure that transient required BiPAP Acute COVID-19 infection Acute on chronic heart failure with preserved ejection fraction Hyperkalemia-trending down CKD stage IV Essential hypertension Hyperlipidemia Diabetic neuropathy DM-2 Chronic normocytic anemia Carotid artery stenosis BPH with obstruction CAROL[place] GERD History of tobacco abuse Physical Exam Narrative Patient states he feels 100% better. Is very anxious to go home if at all possible. Is not requiring oxygen states he is done multiple laps around the unit and feels well. Const alert, oriented x3, no apparent distress, average body habitus, no limitations, healthy appearing and well nourished Constitutional Narrative: Very pleasant, upper middle-aged, white male, sitting up on the edge of the bed, appears comfortable, nontoxic, on room air General Appearance: cooperative, comfortable, well kempt and well developed Exam Limitations: no limitations HEENT normocephalic, head/scalp atraumatic, hearing grossly normal bilaterally and moist oral mucous membranes HEENT Narrative: Mallampati 2, no thrush Eyes conjunctivae normal Eyes Narrative: No scleral icterus Neck supple Neck Narrative: Trachea midline Resp normal respiratory effort, no retractions, no use of accessory muscles and clear to auscultation bilaterally Auscultation: Negative for rales, rhonchi or wheezes Cardio regular rate, regular rhythm, S1 normal heart sound, S2 normal heart sound, no murmurs, no rub, no gallops and no clicks GI normal to inspection, nondistended, normoactive bowel sounds, soft to palpation and non-tender Extremity no clubbing, cyanosis or edema Extremity Narrative: 2+ pedal and radial pulses Neuro moves all extremities and no focal motor deficits Neuro Narrative: Patient able to ambulate independently around the room Psych affect normal Psych Narrative: Very pleasant, appropriate interaction, makes good eye contact Weight / BMI Weight Weight: 72.5 kg Body Mass Index (BMI) 25.0 ABG / Lab / Microbiology Data 02/03/25 05:30 02/03/25 07:15 Laboratory: Laboratory Results - last 24 hr 02/02/25 21:00: WBC 6.9, RBC 3.53 L, Hgb 10.1 L, Hct 31.1 L, MCV 88.1, MCH 28.6, MCHC 32.5, RDW Std Deviation 48.2 H, RDW Coeff of Jesus 15.1 H, Plt Count 326, MPV 8.9, Immature Gran % (Auto) 0.100, Neut % (Auto) 79.2 H, Lymph % (Auto) 7.1 L, M chance % (Auto) 12.8 H, Eos % (Auto) 0.4, Baso % (Auto) 0.4, Absolute Neuts (auto) 5.5, Absolute Lymphs (auto) 0.49 L, Nucleated RBC % 0, PT 14.1, INR 1.1, APTT 25.0, D-Dimer Quant (PE/DVT) 1.62 H*, Sodium 131 L, Potassium 5.2 H, Chloride 99, Carbon Dioxide 21.9, Anion Gap 10, BUN 30 H, Creatinine 2.38 H, Estim Creat Clear Calc 28.54 L, Est GFR (MDRD) Non-Af 29 L, BUN/Creatinine Ratio 12.6, G lucose 263 H, Lactic Acid < 1.0, Calcium 8.2, Ferritin 125, Total Bilirubin 0.32, Direct Bilirubin 0.15, AST 19, ALT 20, Alkaline Phosphatase 153 H, Lactate Dehydrogenase 207, Total Creatine Kinase 32, Troponin T High Sens 56 H* D, C- React Prot Ext Range 15.50 H, [place] [address] H, Total Protein 6.4, Albumin 3.4, Globulin 2.9, Procalcitonin 0.21 H 02/02/25 23:25: Troponin T Hi Sens 2 Hr 59 H* 02/03/25 00:23: POC Glucose 222 H 02/03/25 01:44: Troponin T Hi Sens 4Hr 61 H* 02/03/25 05:30: WBC 5.3, RBC 3.35 L, Hgb 9.8 L, Hct 30.0 L, MCV 89.6, MCH 29.3, MCHC 32.7, RDW Std Deviation 49.4 H, RDW Coeff of Jesus 15.1 H, Plt Count 293, MPV 8.8, Immature Gran % (Auto) 0.400, Neut % (Auto) 91.9 H, Lymph % (Auto) 5.6 L, Faulk % (Auto) 1.9, Eos % (Auto) 0.0, Baso % (Auto) 0.2, Absolute Neuts (auto) 4.9, Absolute Lymphs (auto) 0.30 L, Nucleated RBC % 0, Sodium 131 L, Potassium 6.3 H*, Chloride 101, Carbon Dioxide 18.4 L, Anion Gap 12, BUN 32 H, Creatinine 2.59 H, Estim Creat Clear Calc 26.23 L, Est GFR (MDRD) Non-Af 26 L, BUN/Creatinine Ratio 12.5, Glucose 348 H, Calcium 8.0, Total Bilirubin 0.26, AST 17, ALT 16, Alkaline Phosphatase 140 H, Total Protein 6.2, Albumin 3.2 L, Globulin 3.0, Albumin/Globulin Ratio 1.0 02/03/25 06:05: POC Glucose 327 H 02/03/25 07:15: Potassium 5.9 H 02/03/25 10:57: POC Glucose 475 H* Microbiology: Microbiology 02/02/25 21:00 Mucosa - Nose SARS-CoV-2, Influenza & RSV (PCR) - Final SARS-CoV-2 (COVID 19 PCR) Radiography Diagnostic Testing: Radiology Impression Chest X-Ray 02/02/25 19:55 IMPRESSION: Bilateral lower lobe opacities likely chronic interstitial lung disease. Atypical pneumonia not excluded.. Reading Location: [facility] Chest CTA 02/02/25 20:37 IMPRESSION: No pulmonary arterial emboli. Borderline cardiomegaly. Fluid overload with small bilateral pleural effusions, interstitial and alveolar edema. Infectious/inflammatory component of ground-glass airspace opacities may be present. Reading Location: [id number] D/C Instructions Discharge Activity: Return to Normal Activity DC O2, CPAP, BIPAP Needs Home O2 Discharge instructions: No DC home with Oxygen: No Meaningful Use Info Meaningful Use Meaningful Use Diagnoses (Choose all that apply): None applicable Discharge Plan Admission Admit Date/Time: 02/02/25 22:46 Primary Reason for Your Visit: Shortness of breath Attending Provider: Purnima Renae Primary Care Provider: Madhav Avendano Consulting Providers: Treasure Smiley Instructions Additional Instructions / Restrictions: 1. I would recommend you do not skip doses of Lasix as I think that is actually why you got admitted and we just found the COVID incidentally. I really do not think your shortness of breath was related to your COVID infection 2. If you develop shortness of breath like this again try taking an extra dose of Lasix and calling your terrazzo worker apprentice office if that does not work 3. Your echocardiogram was still not read at discharge. You were feeling well and we did have an explanation for your shortness of breath as you had not taken your Lasix for a few days. I will call you with results if there are any changes from your previous echocardiogram and will notify your terrazzo worker apprentice 4. Please stay away from people who have not been around for the next 5 days and continue using your incentive spirometer and Acapella after discharge 5. Please call your terrazzo worker apprentice or primary care office and asked that a basic metabolic profile be done on Saturday to recheck your kidney function and your potassium. Discharge Orders/Prescriptions Prescriptions: Continued Humalog KwikPen Insulin 100 unit/mL insulin pen See Rx Instructions SC TID Dose Instruction: 12 units to 16 units SC TID; 12 units to 16 units SC TID Rx Instructions: 12 units to 18 units SC TID; 12 units to 18 units SC TID tadalafil 5 mg tablet 5 mg PO DAILY Patient Comments: TAKE 1 TABLET BY MOUTH ONCE DAILY (DME) compress.stocking,knee,reg,lrg Misc See Rx Instructions .MEDSUPPLY Qty: 2 1RF Rx Instructions: wear daily for venous insufficiency 20-30 mmHg (DME) FreeStyle Daron 2 Plus Sensor Device See Rx Instructions .Route Rx Instructions: As directed omeprazole 40 mg capsule,delayed release(DR/EC) 40 mg PO QDAY PRN (Reason: gerd) cholecalciferol (vitamin D3) 50 mcg (2,000 unit) capsule 2,000 unit PO DAILY Qty: 90 2RF losartan 100 mg tablet 100 mg PO DAILY Qty: 90 1RF insulin glargine [Basaglar KwikPen U-100 Insulin] 100 unit/mL (3 mL) insulin pen 25 unit subcut QAM furosemide [Lasix] 40 mg tablet 40 mg PO QAM carvedilol 6.25 mg tablet 6.25 mg PO BID Qty: 180 3RF Rx Instructions: must administer with a meal/food levocetirizine [Xyzal] 5 mg tablet 5 mg PO QDAY Qty: 30 2RF clonidine HCl 0.1 mg tablet 0.1 mg PO BID (DME) FreeStyle Daron 2 Sensor Kit MISCELLANEOUS Patient Comments: [NO ORIGINAL SIG] (DME) pen needle, diabetic [BD Ultra-Fine Mini Pen Needle] 31 gauge x 3/16 needle See Rx Instructions .ROUTE .MEDSUPPLY Qty: 100 3RF Rx Instructions: use as directed four times a day handicap placard See Rx Instructions .ROUTE .COMPLEX Qty: 1 0RF Rx Instructions: Duration 5 years for reduced mobility amlodipine 10 mg tablet 10 mg PO QDAY Qty: 90 3RF fluticasone propionate 50 mcg/actuation spray,suspension 1 spray INTRANASAL DAILY PRN (Reason: nasal congestion) Qty: 16 3RF levothyroxine 150 mcg tablet 150 mcg PO DAILY Qty: 90 1RF sildenafil [Viagra] 25 mg tablet 25 mg PO QDAY PRN (Reason: sexual activity) Qty: 20 1RF Rx Instructions: administer 30 minutes to 4 hours before activity Repatha SureClick 140 mg/mL pen injector 140 mg subcut Q2W Qty: 2 11RF Referrals / Follow Up: Madhav Avendano MD [Primary Care Provider, Internal Medicine] - Within 2 Weeks Chacorta Porter NP, CREPING MACHINE OPERATOR HELPER-C [Med Staff - [facility] Practice Prof, Cardiology] - Within 1 Month Referral Note: Since you were admitted please follow-up with your heart doctor office within the next month. Call tomorrow to set up an appointment and tell them you were admitted for heart failure Disposition Disposition (needs filled in before D/C Order can be placed): Home, Self Care Charges/Coding Visit Charges Inpatient E&M: 31710 Disch Hosp >30min
== END 2025-02-03 17:28 | disposition home or self-care (01) | DRG 177 ==
LOC: ED 22:20 → PCU 23:08
PROVIDERS: Internal Medicine; Admitting Provider Family Medicine; Emergency Provider Emergency Medicine; PCP Internal Medicine; Visit Provider Internal Medicine
DX: U07.1 COVID-19 (principal); J96.01 Acute respiratory failure with hypoxia; I50.33 Acute on chronic diastolic (congestive) heart failure; N13.8 Other obstructive and reflux uropathy; N18.4 Chronic kidney disease, stage 4 (severe); I13.0 Hypertensive heart and chronic kidney disease with heart failure and stage 1 through stage 4 chronic kidney disease, or unspecified chronic kidney disease; D63.1 Anemia in chronic kidney disease; E10.22 Type 1 diabetes mellitus with diabetic chronic kidney disease; I65.23 Occlusion and stenosis of bilateral carotid arteries; E10.42 Type 1 diabetes mellitus with diabetic polyneuropathy; E78.2 Mixed hyperlipidemia; I25.10 Atherosclerotic heart disease of native coronary artery without angina pectoris; E87.5 Hyperkalemia; K21.9 Gastro-esophageal reflux disease without esophagitis; F17.220 Nicotine dependence, chewing tobacco, uncomplicated; Z79.4 Long term (current) use of insulin; G47.33 Obstructive sleep apnea (adult) (pediatric); E10.69 Type 1 diabetes mellitus with other specified complication; N40.1 Benign prostatic hyperplasia with lower urinary tract symptoms; Z91.148 Patient's other noncompliance with medication regimen for other reason; Z79.899 Other long term (current) drug therapy
CPT/HCPCS: 36415; 71046; 71275; 80048; 80053; 80076; 82550; 82728; 82962; 83605; 83615; 83880; 84132; 84145; 84484; 85025; 85379; 85610; 85730; 86140; 87631; 93005; 93308; 94002; 94640; 94668; 94762; 97802; 99284; Q9967; A4216; J0248; J1938

== ENCOUNTER → 2025-02-18 | Outpatient (CLI) | payer MEDICARE, SELFPAY ==
[2025-02-18 10:54] LABS: Hematocrit 32.9 % (40-54); Hemoglobin 10.9 g/dL (13.0-16.5); Immature Granulocytes Count 0.080 X10^3/uL (0.0-0.0); Mean Corp Hgb Conc 33.1 g/dL (32-36); Mean Corpuscular Volume 87.7 fL (80-94); Mean Platelet Vol. 8.8 fl (6.2-12.0); NRBC Flagged by Analyzer 0 % (0-5); Platelet Count 451 K/mm3 (150-450); RBC Distribution Width CV 14.5 % (11.6-14.6); RBC Distribution Width SD 46.7 fl (35.1-43.9); Red Blood Count 3.75 M/mm3 (4.6-6.2); White Blood Count 7.1 K/mm3 (4.4-11.0)
[2025-02-18 11:16] LABS: Creatinine, Urine (random) 54.70 mg/dL (39.00-259.00)
[2025-02-18 11:27] LABS: PSA,Total - Annual Screen 0.41 ng/mL (0.02-4.00)
[2025-02-18 11:28] LABS: Protein, Urine (Random) 386.0 mg/dL (0.0-12.0); Protein:Creat Ratio 7057 mg/g CRE (0-200)
[2025-02-18 11:54] LABS: AST(SGOT) 15 U/L (<=37); Alanine Aminotransfer ALT/SGPT 12 U/L (<=46); Albumin, Serum 3.5 g/dL (3.4-4.8); Alkaline Phosphatase 124 U/L (40-129); Anion Gap 11 (5-15); BUN 36 mg/dL (4-19); BUN/Creat Ratio 15.3 RATIO (10-20); Calcium,Total 8.7 mg/dL (7.6-11.0); Carbon Dioxide 22.7 mmol/L (21.0-32.0); Chloride 100 mmol/L (98-108); Globulin 3.0 g/dL (2.2-4.2); Glucose 259 mg/dL (70-99); Potassium 6.1 mmol/L (3.3-5.1)
== END | disposition home or self-care (01) ==
LOC: MTLAB 08:40
PROVIDERS: PCP Internal Medicine; Referring Provider Internal Medicine; Visit Provider Internal Medicine
DX: Z12.5 Encounter for screening for malignant neoplasm of prostate (principal); E10.65 Type 1 diabetes mellitus with hyperglycemia; E03.9 Hypothyroidism, unspecified
CPT/HCPCS: 36415; 80053; 82570; 83036; 84153; 84156; 85025; G0103

== ENCOUNTER → 2025-02-26 | Outpatient (CLI) | payer MEDICARE, SELFPAY ==
--- OUTSIDE RECORDS SUMMARY | 2025-02-26 10:40 | XMS RPT_ITS | CCD ---
Author Organization [facility] Care Team Providers Care Global Compensation Director Name Role Phone Dr. Sherice Avendano Primary Care Provider [phone] Dr. Sherice Avendano Referring Provider [phone] REGULATORY COMPLIANCE MANAGER, REGULATORY COMPLIANCE MANAGER-C Gennaro Attending Provider Dr. Sherice Avendano Primary Care Provider [phone] Dr. Sherice Avendano Attending Provider [phone] Dr. Sherice Avendano Referring Provider [phone] REGULATORY COMPLIANCE MANAGER, REGULATORY COMPLIANCE MANAGER-C Gennaro Attending Provider Dr. Sherice Avendano Primary Care Provider [phone] Dr. Sherice Avendano Attending Provider [phone] Dr. Sherice Avendano Referring Provider [phone] Mc FARR, REGULATORY COMPLIANCE MANAGER-C Gennaro Attending Provider Dr. Nicholas Teixeira Attending Provider [phone] Dr. Sherice Avendano Primary Care Provider [phone] Mc REGULATORY COMPLIANCE MANAGER, REGULATORY COMPLIANCE MANAGER-C Gennaro Referring Provider Dr. Sherice Avendano Attending Provider [phone] Dr. Sherice Avendano Referring Provider [phone] German FARR, REGULATORY COMPLIANCE MANAGER-C Chacorta Barraza Attending Provider [phone] ANIL Torers Attending Provider Unavailab Dr. Sherice Hirsch Primary [...] Treva WERNER, Dr. Bishop Referring Provider German REGULATORY COMPLIANCE MANAGER-C, Chacorta H Other Provider Mc REGULATORY COMPLIANCE MANAGER-C, Gennaro Other Provider Marlena Justin Attending Provider Marlena Justin Referring Provider Marlena Justin Other Provider Romana WERNRE, Dr. Corey Attending Provider [phone] VIRGILIO REGULATORY COMPLIANCE MANAGER-C, CANDICE Other Provider German REGULATORY COMPLIANCE MANAGER-C, Chacorta H Attending Provider [phone] German REGULATORY COMPLIANCE MANAGER-C, Chacorta H Referring Provider Romana WERNER, Dr. Corey Primary Care Provider Romana WERNER, Dr. Corey Referring Provider [phone] Dr. Denzel Carlin DO Emergency Provider Dr. Denzel Carlin DO Attending Provider Ungerer REGULATORY COMPLIANCE MANAGER-C, Riya Attending Provider [phone] Romana WERNER, Dr. Corey Primary Care Provider Romana WERNER, Dr. Corey Referring Provider [phone] German REGULATORY COMPLIANCE MANAGER-C, Chacorta Barraza Attending Provider Yan Gomez Attending Provider Romana WERNER, Dr. Corey Attending Provider [phone] Romana WERNER, Dr. Corey Primary Care Physician Dr. Denzel Carlin DO Attending Physician Dr. Denzel Carlin DO Emergency Department Physic kyra Moisesr REGULATORY COMPLIANCE MANAGER-CRiya Attending Physician German REGULATORY COMPLIANCE MANAGER-C, Chacorta Barraza Attending Physician Yan Gomez Attending Physician Romana WERNER, Dr. Corey Attending Physician German REGULATORY COMPLIANCE MANAGER-CChacorta Referring Provider [phone] Romana WERNER, Dr. Corey Primary Care Physician Puneet WERNER, Dr. Peterson Attending Physician German REGULATORY COMPLIANCE MANAGERChacorta Attending Unavailable Oleghe, Efewongbe Primary Care [...] Referring Unavailabl e Emanuel, Pop Attending Unavailable Oleghe, Efewongbe Primary Care Unavailable [...] Physician Dr. Sherice Avendano MD Referring Provider Roof REGULATORY COMPLIANCE MANAGER-Chacorta Valderrama Attending Physician [phone] Allergies Allergy Classification Reported Allergen(s) Allergy Type Date of Onset Reaction(s) Facility (2 sources) Adhesive agent Allergy to substance 2 Rash [facility] Work Phone: (20 sources) Latex Allergy to substance 2 Unknown [facility] (20 sources) Gyovppr-Lqn-Ruv Reductase Inhibitor; Translations: [Juyoodp-Yht-Zlt Reductase Inhibitor] Propensity to adverse reactions 2 muscle pain [facility] (1 source) Adhesive Tape; Translations: [ADHESIVE TAPE (ROSINS)] Propensity to adverse reactions (disorder) 8 [facility] (1 source) Hmg-Coa Reductase Inhibitors (Statins); Translations: [ODOFUYC-TCV-WNY REDUCTASE INHIBITORS] Propensity to adverse reactions to drug (disorder) 4 [facility] (1 source) Latex Drug allergy (disorder) 5 [facility] Repository Medications Current Medications Medication Drug [...] Start: 05-19-2024 take 1 capsule by mo [facility] once daily Cholecalciferol (Vitamin D3) 50 mcg (2,000 unit) capsule Active 2000 U PO DAILY May 19, 2024 10:32am Start: 03-11-2020 End: 05-19-2024 take 1 capsule by mouth once daily Cholecalciferol (Vitamin D3) 50 mcg (2,000 unit) capsule Discontinued 50 ug PO DAILY March 11, 2020 1:00am May 19, 2024 10:34am 168 hr cloNIDine 0.51758 mg/hr transdermal system (16 sources) Central alpha-2 [...] Type 1 diabetes mellitus without complications Insulin [place] (Disposable) (12 sources) Start: 01-25-2021 Insulin Needle [...] 17, 2024 12:00am Complies with drug therapy Paden-3 Fatty Acids (Fish Oil Concentrate) 1,000 mg capsule (20 sources) Start: 12-04-2019 take 1 capsule by mouth once daily Paden-3 Fatty Acids (Fish Oil Concentrate) 1,000 mg capsule Active 1000 MG PO DAILY December 04, 2019 9:42am Start: 12-04-2019 End: 01-16-2024 take 1 capsule by mouth once daily Paden-3 Fatty Acids (Fish Oil Concentrate) 1,000 mg capsule Discontinued 1000 mg PO DAILY December 04, 2019 12:00am January 16, 2024 3:03pm Start: 12-04-2019 take 1 capsule by [facility] once daily Paden-3 Fatty Acids (Fish Oil Concentrate) 1,000 mg capsule Active 1000 MG PO DAILY December 03, 2019 11:00pm Start: 12-04-2019 take 1 capsule by [facility] once daily Paden-3 Fatty Acids (Fish Oil Concentrate) 1,000 mg [...] November 07, 2020 December 06, 2020 11:05am [id number] 200 actuat albuterol 0.09 mg/actuat metered dose [...] February 27, 2022 9:29am Pt received from Mamina Shkola Start: 01-02-2022 End: 02-27-2022 take 12.5 mg by mouth once daily Chlorthalidone Discontinued 12.5 MG PO DAILY January 02, 2022 8:59am February 27, 2022 9:29am Start: 11-24-2021 End: 01-02-2022 take 1 tablet by mouth once daily Chlorthalidone 25 mg tablet Discontinued 25 mg PO DAILY December 05, 2021 12:00am January 02, 2022 9:00am Pt received from Mamina Shkola colchicine 0.6 mg oral tablet (20 sources) [...] extended release oral tablet (20 sources) Uncompetitive B-fzzolh-B-aspartate Receptor Antagonist, Sigma-1 Agonist Start: 10-26-2020 End: [...] units to 16 units SC TID Insulin [place] (Disposable) 30 X 3/4 needle (10 sources) Start: 01-25-2021 End: 08-04-2024 Insulin [place] (Disposable) 30 X 3/4 needle Discontinued 0 [...] Coronary atherosclerosis; Translations: [Atherosclerotic heart disease of [place] coronary artery without angina pectoris] Onset: 4 Chronic Comment on above: Diffuse coronary art sarahi disease with small vessels noted in the entire coronary vasculature. [facility] 05/09/20 Diabetes mellitus with complications (20 sources) [...] Vis itosonja 12-17-2024 Internal Medicine Office Visit [facility] [address] [place] [address] [place] [address] OFFICE VISIT Date of Service: 12/17/24 MR#: [id number] Acct: [id number] Name: OLIVIER MENDOZA Rep #: [id number] : 1960 Provider: ANIL Dunn Age/Sex: 64/M [place] [facility] [place] Status: Signed Intake Vital Signs 11/26/24 10:04 [...] Voicebox issues Chief Complaint: 6 M FU Forensic Ballistics Expert Required: No Is patient in pain?: No Allergies latex Allergy (Unknown, Verified 12/17/24 14:34) Unknown Laollqh-QLQ-OoI Reductase Inhibitor (Hcqmvmy-Xks-Kxc Reductase Inhibitor) Adverse Reaction (Severe, Verified 12/17/24 [...] has a sore throat in the morning. [facility] Medical History Chronic sinusitis Erectile dysfunction Claudication of both lower extremities Hilar density Abnormal chest xray Preop cardiovascular exam CKD (chronic kidney disease), stage III GERD (gastroesophageal reflux disease) Chest congestion Preoperative evaluation to rule out surgical contraindication Sinusitis Skin cyst Fatigue Left elbow pain Health care maintenance Proteinuria Nephropathy Bilateral lower extremity edema COVID-19 vaccine series completed Atherosclerotic heart disease of [place] coronary artery without angina pectoris Mixed hyperlipidemia [...] eye valentin (more content not included)... Normal [facility] Duplex ultrasound of carotid artery reportOrdered By: Nicholas Teixeira on 12-02-2024 Study report [facility] [address] [place] [address] Carotid Duplex Ultrasound 12/01/24 0901 MR#: [id number] Acct: [id number] Name: OLIVIER MENDOZA Rep #:[id number] : 1960 63 From: Nicholas Chester Attending Dr: SHAUN Cardozo Sta tus: REG CLI Ordering Dr: Chacorta Porter NP Date: 12/01/24 Location: [facility] Sex: M C Admitted: Reason [...] 12/02/241717 Date _ Nicholas Teixeira MD CC: REGULATORY COMPLIANCE MANAGER-C Chacorta Porter; Dr. Sherice Avendano MD ~ Date Dictated: 12/01/24900 Date Transcribed: 12/02/241717 Supervising Floorperson: Signed [facility] Work Phone: Carotid Duplex Ultrasoundon 12-01-2024 Carotid Duplex Ultrasound [facility] [address] [place], [place] [address] [address] Carotid Duplex Ultrasound 12/01/24900 MR#: [id number] Acct: [id number] Name: OLIVIER MENDOZA Rep #: [id number] : 1960 63 From: Nicholas Teixeira MD Attending Dr: Chacorta Porter, REGULATORY COMPLIANCE MANAGER-C Status: REG CLI Ordering Dr: Chacorta Porter REGULATORY COMPLIANCE MANAGER REGULATORY COMPLIANCE MANAGER-C Date: 12/01/24 Location: [facility] Sex: M [...] MD Date Dictated: 12/01/24900 Date Transcribed: 12/02/241717 Supervising Floorperson: Signed Normal [facility] Cardiology Visit Reporton Cardiology Visit Report [facility] [address] [place] [address] OFFICE VISIT Date of Service: 11/26/24 MR#: [id number] Acct: [id number] Name: OLIVIER MENDOZA Rep #: [id number] : 1960 Provider: SHAUN lau Age/Sex: 63/M [place] [facility] [place] Status: Signed HPI HPI History of [...] air Intake Visit Reasons: 3 M FU Forensic Ballistics Expert Required: No Accompanied by: Self Is patient in pain?: No Allergies latex Allergy (Unknown, Verified 11/26/24 09:58) Unknown Ayjflhs-TIR-LvU Reductase Inhibitor (Eeusdyt-Usv-Hrj Reductase Inhibitor) Adverse Reaction (Severe, Verified 11/26/24 [...] Requests to talk about clonidine patch, Dr. Avenadno recommended but insurance will not cover. [facility] Medical History Chronic sinusitis Erectile dysfunction Claudication of both lower extremities Hilar density Abnormal chest xray Preop cardiovascular exam CKD (chronic kidney disease), stage III GERD (gastr (more content not included)... Normal [facility] Internal Medicine Office Vis itosonja 11-11-2024 Internal Medicine Office Visit [facility] [place] [address] [place] [address] OFFICE VISIT Date of Service: 11/11/24 MR#: [id number] Acct: [id number] Name: OLIVIER MENDOZA Rep #: [id number] : 1960 Provider: Dr. Sherice rock MD Age/Sex: 63/M [place] [facility] [place] Status: Signed Intake Vital Signs 05/07/24 13:35 10/28/24 09:40 Height 5 ft 7 in 5 ft 7 in Intake Visit Reasons: 6 M FU Chief Complaint: 6 M FU Is patient in pain?: No Allergies latex Allergy (Unknown, Verified 11/11/24 10:08) Unknown Xarpebb-WQH-IlK Reductase Inhibitor (Rmmbayd-Esw-Rdz Reductase Inhibitor) Adverse Reaction (Severe, Verified 11/11/24 [...] vaccine series completed Atherosclerotic heart disease of [place] coronary artery without angina pectoris Mixed hyperlipidemia [...] follow-up o (more content not included)... Normal [facility] Laboratory - Hematology and Cell countsOrdered By: Sherice Avendano on 11-11-2024 HbA1c (Bld) [Mass fraction] 8.4 % High 4.2-6.3 [facility] Internal Medicine Office Vis iton 10-28-2024 Internal Medicine Office Visit [facility] [address] [place] [address] [place] [address] OFFICE VISIT Date of Service: 10/28/24 MR#: [id number] Acct: [id number] Name: OLIVIER MENDOZA Rep #: [id number] : 1960 Provider: ANIL Dunn Age/Sex: 63/M [place] [facility] [place] Status: Signed Intake Vital Signs 08/26/24 09:11 [...] Reasons: Voicebox concerns Chief Complaint: voice box Forensic Ballistics Expert Required: No Accompanied by: Self Is patient in pain?: No Allergies latex Allergy (Unknown, Verified 10/28/24 09:34) Unknown Zfnrdma-DUV-DnR Reductase Inhibitor (Hbvalaq-Tzy-Wqd Reductase Inhibitor) Adverse Reaction (Severe, Verified 10/28/24 [...] vaccine series completed Atherosclerotic heart disease of [place] coronary artery without angina pectoris Mixed hyperlipidemia [...] frequency: a (more content not included)... Normal [facility] Microalb:Creat Ratio,Random URon 09-28-2024 MALB:CREAT 2946.7 mg/g CRE High <30 mg/g CRE [facility] Comment on above: Result Comment: AMENDED REPORT 09/28/242128 MALB:CREAT previously reported as: 31070.5 mg/g CRE Performed By: #### L 100.0100, L501.4021, L500.2500 #### [facility] Laboratory [address] [place], [address] Cardiology Visit Reporton Cardiology Visit Report [facility] [address] [place] [address] OFFICE VISIT Date of Service: 08/26/24 MR#: [id number] Acct: [id number] Name: OLIVIER MENDOZA Rep #: [id number] : 1960 Provider: SHAUN lau Age/Sex: 63/M [place] [facility] [place] Status: Signed HPI HPI History of Present [...] Visit Reasons: S/P ER, severe hypertension L.L. Forensic Ballistics Expert Required: No Is patient in pain?: No Allergies latex Allergy (Unknown, Verified 08/26/24 09:18) Unknown Rfcquog-LGF-QnC Reductase Inhibitor (Opkvfbk-Ihp-Sub Reductase Inhibitor) Adverse Reaction (Severe, Verified 08/26/24 [...] COVID-19 vaccin (more content not included)... Normal [facility] Internal Medicine Office Vis iton 08-20-2024 Internal Medicine Office Visit [facility] [address] [place] [address] [place] [address] OFFICE VISIT Date of Service: 08/20/24 MR#: [id number] Acct: [id number] Name: OLIVIER MENDOZA Rep #: [id number] : 1960 Provider: SHAUN abernathy Age/Sex: 63/M [place] [facility] [place] Status: Signed Intake Vital Signs 08/04/24 13:41 [...] latex Allergy (Unknown, Verified 08/20/24 11:07) Unknown Idqxpeu-OKQ-IzN Reductase Inhibitor (Fscmjfq-Cjj-Pqq Reductase Inhibitor) Adverse Reaction (Severe, Verified 08/20/24 [...] 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 is 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 to get BP lowered pt denies any chest pain or shortness of breath at this time 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 tried to take IBU for the neck pain however it sent his blood pressure through the roof so now he no longer uses this [facility] Medical History Claudication of both lower extremities Hilar density Abnormal chest xray Preop cardiovascular exam CKD (chronic kidney disease), stage III GERD (gastroesophageal reflux disease) Chest congestion Preoperative evaluation to rule out surgical contraindication Sinusitis Skin cyst Fatigue Left elbow pain Health care maintenance Proteinuria Nephropathy Bilateral lower extremity edema COVID-19 vaccine series completed Atherosclerotic heart disease of [place] coronary artery without angina pectoris Mixed hyperlipidemia [...] Heart dis (more content not included)... Normal [facility] Absolute lymphocyte countOrd ered By: Denzel Carlin on 08-04-2024 Lymphocytes Auto (Unsp spec) [#/Vol] 1.01 10*3/uL 0.83-4.51 [facility] Absolute neutrophil countOrd ered By: Denzel Carlin on 08-04-2024 Neutrophils (Bld) [#/Vol] 5.4 10*3/uL 2.0-7.7 [facility] Anion gap in Serum or Plasma Ordered By: Denzel Carlin on 08-04-2024 Anion gap [Moles/Vol] 10 mmol/L - [facility] Automated lymphocyte count a s percentage of total leukocytesOrdered By: Denzel Carlin on 08-04-2024 Lymphocytes/100 WBC Auto (Unsp spec) 13.9 % Low - [facility] BUN/creatinine ratioOrdered By: Denzel Carlin on 08-04-2024 Urea nitrogen/Creatinine [Mass ratio] 16.7 mg/mg - [facility] Basic Metabolic Profile (BMP )on 08-04-2024 BUN/CRE 16.7 RATIO Normal - [facility] Comment on above: Performed By: #### L 100.0100, L501.4021, L500.2500 #### [facility] [address] [place], [address] Calcium [Mass/Vol] 9.3 mg/dL Normal 7.6-11.0 [facility] Comment on above: Performed By: #### L 100.0100, L501.4021, L500.2500 #### [facility] [address] [place], [address] Chloride [Moles/Vol] 102 mmol/L Normal 98-108 [facility] Comment on above: Performed By: #### L 100.0100, L501.4021, L500.2500 #### [facility] [address] [place], [address] CO2 [Moles/Vol] 24.7 mmol/L Normal 21.0-32.0 [facility] Comment on above: Performed By: #### L 100.0100, L501.4021, L500.2500 #### [facility] [address] [place], [address] Creatinine [Mass/Vol] 2.20 mg/dL High 0.70-1.20 [facility] Comment on above: Performed By: #### L 100.0100, L501.4021, L500.2500 #### [facility] [address] [place], [address] ECRCL 31.30 ml/min Low 50-250 [facility] Comment on above: Performed By: #### L 100.0100, L501.4021, L500.2500 #### [facility] [address] [place], [address] GAP 10 Normal 5-15 [facility] Comment on above: Performed By: #### L 100.0100, L501.4021, L500.2500 #### [facility] [address] [place], [address] GFR/1.73 sq M.predicted among non-blacks MDRD (S/P/Bld) [Vol rate/Area] 32 mL/min/{1.73_m2} Low >60 [facility] Comment on above: Result Comment: mL/m in/1.73m2 CKD-EPI Creatinine Equation (2020) Performed By: #### L 100.0100, L501.4021, L500.2500 #### [facility] [address] [place], [address] Glucose [Mass/Vol] 130 mg/dL High 70-99 [facility] Comment on above: Performed By: #### L 100.0100, L501.4021, L500.2500 #### [facility] [address] [place], [address] Potassium [Moles/Vol] 5.3 mmol/L High 3.3-5.1 [facility] Comment on above: Performed By: #### L 100.0100, L501.4021, L500.2500 #### [facility] [address] [place], [address] Sodium [Moles/Vol] 136 mmol/L Normal 133-145 [facility] Comment on above: Performed By: #### L 100.0100, L501.4021, L500.2500 #### [facility] [address] [place], [address] Urea nitrogen [Mass/Vol] 37 mg/dL High 4-19 [facility] Comment on above: Performed By: #### L 100.0100, L501.4021, L500.2500 #### [facility] [address] [place], [address] Basophil percentageOrdered B y: Denzel Carlin on 08-04-2024 Basophils/100 WBC (Bld) 0.4 % 0-1 [facility] CBC W/Diff, Automatedon 06-0 Absolute Lymph 1.01 X10 3/uL Normal 0.83-4.51 [facility] Comment on above: Performed By: #### L 100.0100, L501.4021, L500.2500 #### [facility] [address] [place], [address] Absolute Neut 5.4 X10 3/uL Normal 2.0-7.7 [facility] Comment on above: Performed By: #### L 100.0100, L501.4021, L500.2500 #### [facility] [address] [place], [address] Basophils/100 WBC (Bld) 0.4 % Normal 0-1 [facility] Comment on above: Performed By: #### L 100.0100, L501.4021, L500.2500 #### [facility] [address] [place], [address] Eosinophils/100 WBC (Bld) 3.7 % Normal 0-5 [facility] Comment on above: Performed By: #### L 100.0100, L501.4021, L500.2500 #### [facility] [address] [place], [address] Erythrocyte distribution width (RBC) [Ratio] 14.4 % Normal 11.6-14.6 [facility] Comment on above: Performed By: #### L 100.0100, L501.4021, L500.2500 #### [facility] [address] [place], [address] Hematocrit (Bld) [Volume fraction] 35.2 % Low 40-54 [facility] Comment on above: Performed By: #### L 100.0100, L501.4021, L500.2500 #### [facility] [address] [place], [address] Hemoglobin (Bld) [Mass/Vol] 11.6 g/dL Low 13.0-16.5 [facility] Comment on above: Performed By: #### L 100.0100, L501.4021, L500.2500 #### [facility] [address] [place], [address] IG% 0.300 Normal 0.0-0.9 [facility] Comment on above: Result Comment: IG% - Immature Granulocytes (promyelocytes, myelocytes and metamyelocytes) > 1% indicates that a LEFT SHIFT is Present. Performed By: #### L 100.0100, L501.4021, L500.2500 #### [facility] [address] [place], [address] Lymphocytes/100 WBC (Bld) 13.9 % Low 19-41 [facility] Comment on above: Performed By: #### L 100.0100, L501.4021, L500.2500 #### [facility] [address] [place], [address] MCH (RBC) [Entitic mass] 29.0 pg Normal 27.0-32.0 [facility] Comment on above: Performed By: #### L 100.0100, L501.4021, L500.2500 #### [facility] [address] [place], [address] MCHC (RBC) [Mass/Vol] 33.0 g/dL Normal 32-36 [facility] Comment on above: Performed By: #### L 100.0100, L501.4021, L500.2500 #### [facility] [address] [place], [address] MCV (RBC) [Entitic vol] 88.0 fL Normal 80-94 [facility] Comment on above: Performed By: #### L 100.0100, L501.4021, L500.2500 #### [facility] [address] [place], [address] Monocytes/100 WBC (Bld) 7.4 % Normal 0-10 [facility] Comment on above: Performed By: #### L 100.0100, L501.4021, L500.2500 #### [facility] [address] [place], [address] Neutrophils/100 WBC (Bld) 74.3 % High 47-70 [facility] Comment on above: Performed By: #### L 100.0100, L501.4021, L500.2500 #### [facility] [address] [place], [address] Nucleated RBC (Bld) [#/Vol] 0 10*3/uL Normal 0-5 [facility] Comment on above: Performed By: #### L 100.0100, L501.4021, L500.2500 #### [facility] [address] [place], [address] Platelet mean volume (Bld) [Entitic vol] 8.7 fL Normal 6.2-12.0 [facility] Comment on above: Performed By: #### L 100.0100, L501.4021, L500.2500 #### [facility] [address] [place], [address] Platelets (Bld) [#/Vol] 404 10*3/uL Normal 150-450 [facility] Comment on above: Performed By: #### L 100.0100, L501.4021, L500.2500 #### [facility] [address] [place], [address] RBC (Bld) [#/Vol] 4.00 10*6/uL Low 4.6-6.2 [facility] Comment on above: Performed By: #### L 100.0100, L501.4021, L500.2500 #### [facility] [address] [place], [address] RDW SD 46.0 fl High 35.1-43.9 [facility] Comment on above: Performed By: #### L 100.0100, L501.4021, L500.2500 #### [facility] [address] [place], [address] WBC (Bld) [#/Vol] 7.3 10*3/uL Normal 4.4-11.0 [facility] [facility] Comment on above: Performed By: #### L 100.0100, L501.4021, L500.2500 #### [facility] [address] [place], [address] Carbon dioxide, total [Moles /volume] in Central venous bloodOrdered By: Denzel Carlin on 08-04-2024 CO2 [Moles/Vol] 24.7 mmol/L 21.0-32.0 [facility] Chest PA and Lateralon 08-04 Chest PA and Lateral [facility] Imaging Services [address] [place] [address] Chest PA and Lateral MR#: [id number] Acct: [id number] Name: OLIVIER MENDOZA Rep #: [id number] : 1960 M 63 From: Avi Mckinley MD PCP: Dr. Sherice Avendano MD Status: REG ER Study: Chest PA and Lateral Date of Exam: 08/04/24 Exam# [id number] Ordering Dr: Denzel Carlin DO PROCEDURE: CHEST [...] Borderline cardiomegaly. No significant change. Reading Location: [id number] CC: Dr. Sherice Avendano MD; Dr. Denzel Carlin DO Supervising Floorperson: Signed Normal [facility] Chloride assayOrdered By: Kareem Carlin on 08-04-2024 Chloride [Moles/Vol] 102 mmol/L 98-108 [facility] Emergency Department Summary on 08-04-2024 Emergency Department Summary [facility] Medical Records Department [address] [place] [address] Emergency Department Summary 08/04/24 MR#: [id number] Acct: [id number] Name: OLIVIER MENDOZA Rep #: [id number] : 1960 63 From: Denzel Carlin DO [...] a stress test and an entire workup [facility] Medical History Claudication of both lower extremities Hilar density Abnormal chest xray Preop cardiovascular exam CKD (chronic kidney disease), stage III GERD (gastroesophageal reflux disease) Chest congestion Preoperative evaluation to rule out surgical contraindication Sinusitis Skin cyst Fatigue Left elbow pain Health care maintenance Proteinuria Nephropathy Bilateral lower extremity edema COVID-19 vaccine series completed Atherosclerotic heart disease of [place] coronary artery without angina pectoris Mixed hyperlipidemia [...] latex Allergy Unknown Unknown Verified 08/04/24 13:41 Dxihunl-GGQ-HoW Reductase AdvReac Severe muscle pain Verified 08/04/24 13:41 Inhibitor (Oqkqnuv-Nsj-Tsy Reductase Inhibitor) Family History Mother Diabetes Myocardial infarction Heart disease High cholesterol Grandmother Parkinson disease Father Prostate cancer Grandfather COPD (chronic obstructive pulmonary disease) Surgical History Hx of bilateral cataract extraction ( 06/2022) History of left heart catheterization (05/09/20) History of removal of cyst History of eye surgery Social History Smoking Status: Former smoker Smo (more content not included)... Normal [facility] Eosinophil percentageOrdered By: Denzel Carlin on 08-04-2024 Eosinophils/100 WBC (Bld) 3.7 % 0-5 [facility] Erythrocyte distribution wid th ratioOrdered By: Denzel Carlin on 08-04-2024 Erythrocyte distribution width (RBC) [Ratio] 14.4 % 11.6-14.6 [facility] Erythrocyte distribution wid th standard deviationOrdered By: Denzel Carlin on 08-04-2024 Erythrocyte distribution width (RBC) [Ratio] 46.0 fl High 35.1-43.9 [facility] Glomerular filtration rate ( GFR) estimation/1.73 sq m using serum, plasma, or whole bOrdered By: Denzel Carlin on 08-04-2024 GFR/1.73 sq M.predicted among non-blacks MDRD (S/P/Bld) [Vol rate/Area] 32 mL/min/{1.73_m2} Low >60 [facility] Comment on above: mL/min/1.73m2 CKD-EP I Creatinine Equation (2020) Hematocrit Auto (Bld) [Volum e fraction]Ordered By: Denzel Carlin on 08-04-2024 Hematocrit (Bld) [Volume fraction] 35.2 % Low 40-54 [facility] Hemoglobin measurementOrdere d By: Denzel Carlin on 08-04-2024 Hemoglobin (Bld) [Mass/Vol] 11.6 g/dL Low 13.0-16.5 [facility] Immature granulocytes/100 WB C Auto (Bld)Ordered By: Denzel Carlin on 08-04-2024 Immature granulocytes/100 WBC (Bld) 0.300 % 0.0-0.9 [facility] Comment on above: IG% - Immature Granu locytes (promyelocytes, myelocytes and metamyelocytes) > 1% indicates that a LEFT SHIFT is Present. L499.0042on 08-04-2024 Trop T High Sen 32 ng/L High <=22 [facility] Comment on above: Performed By: #### L 499.0042 #### [facility] [address] [place], [address] L499.0043on 08-04-2024 Trop T High Sen Normal <=22 [facility] Comment on above: Result Comment: Canc elled via OM: MD Ordered Performed By: #### L 100.0100, L501.4021, L500.2500 #### [facility] [address] [place], [address] L501.4021on 08-04-2024 Trop T High Sen 35 ng/L High <=22 [facility] Comment on above: Performed By: #### L 100.0100, L501.4021, L500.2500 #### [facility] [address] [place], [address] MCV (mean corpuscular volume ) determinationOrdered By: Denzel Carlin on 08-04-2024 MCV (RBC) [Entitic vol] 88.0 fL 80-94 [facility] Mean corpuscular hemoglobin (MCH) determinationOrdered By: Denzel Carlin on 08-04-2024 MCH (RBC) [Entitic mass] 29.0 pg 27.0-32.0 [facility] Mean corpuscular hemoglobin concentration (MCHC) determinationOrdered By: Denzel Carlin on 08-04-2024 MCHC (RBC) [Mass/Vol] 33.0 g/dL 32-36 [facility] Mean platelet volume determi nationOrdered By: Denzel Carlin on 08-04-2024 Platelet mean volume (Bld) [Entitic vol] 8.7 fL 6.2-12.0 [facility] Monocyte percentageOrdered B y: Denzel Carlin on 08-04-2024 Monocytes/100 WBC (Bld) 7.4 % 0-10 [facility] Neutrophil percentageOrdered By: Denzel Carlin on 08-04-2024 Neutrophils/100 WBC (Bld) 74.3 % High 47-70 [facility] Nucleated red blood cell per centageOrdered By: Denzel Carlin on 08-04-2024 Nucleated RBC/100 WBC (Bld) [Ratio] 0 % 0-5 [facility] Platelet countOrdered By: Kareem Carlin on 08-04-2024 Platelets (Bld) [#/Vol] 404 10*3/uL 150-450 [facility] Potassium measurement (mass/ volume)Ordered By: Denzel Carlin on 08-04-2024 Potassium (Unsp spec) [Mass/Vol] 5.3 mmol/L High 3.3-5.1 [facility] RBC Auto (Bld) [#/Vol]Ordere d By: Denzel Carlin on 08-04-2024 RBC (Bld) [#/Vol] 4.00 10*6/uL Low 4.6-6.2 [facility] Serum creatinine measurement (mass/volume)Ordered By: Denzel Carlin on 08-04-2024 Creatinine [Mass/Vol] 2.20 mg/dL High 0.70-1.20 [facility] Serum glucose measurement (m ass/volume)Ordered By: Denzel Carlin on 08-04-2024 Glucose [Mass/Vol] 130 mg/dL High 70-99 [facility] Serum or plasma calcium tiera urement (mass/volume)Ordered By: Denzel Carlin on 08-04-2024 Calcium [Mass/Vol] 9.3 mg/dL 7.6-11.0 [facility] Serum or plasma urea nitroge n measurement (mass/volume)Ordered By: Denzel Carlin on 08-04-2024 Urea nitrogen [Mass/Vol] 37 mg/dL High 4-19 [facility] Sodium levelOrdered By: Morris Carlin on 08-04-2024 Sodium [Moles/Vol] 136 mmol/L 133-145 [facility] Troponin T.cardiac [Mass/vol ume] in Serum or Plasma by High sensitivity methodOrdered By: Denzel Carlin on 08-04-2024 Troponin T.cardiac High sensitivity method [Mass/Vol] 32 ng/L High <22 [facility] Troponin T.cardiac High sensitivity method [Mass/Vol] 35 ng/L High <22 [facility] White blood cell (WBC) count Ordered By: Denzel Carlin on 08-04-2024 WBC (Bld) [#/Vol] 7.3 10*3/uL 4.4-11.0 [facility] Anion gap in Serum or Plasma Ordered By: Chacorta Porter on 06-10-2024 Anion gap [Moles/Vol] 11 mmol/L - [facility] BUN/creatinine ratioOrdered By: Chacorta Porter on 06-10-2024 Urea nitrogen/Creatinine [Mass ratio] 14.1 mg/mg - [facility] Basic Metabolic Profile (BMP )on 06-10-2024 BUN/CRE 14.1 RATIO Normal 12-21 [facility] Comment on above: Performed By: #### L 500.2500 #### [facility] [address] [place], [address] Calcium [Mass/Vol] 8.5 mg/dL Normal 7.6-11.0 [facility] Comment on above: Performed By: #### L 500.2500 #### [facility] [address] [place], [address] Chloride [Moles/Vol] 99 mmol/L Normal 98-108 [facility] Comment on above: Performed By: #### L 500.2500 #### [facility] [address] [place], [address] CO2 [Moles/Vol] 23.9 mmol/L Normal 21.0-32.0 [facility] Comment on above: Performed By: #### L 500.2500 #### [facility] [address] [place], [address] Creatinine [Mass/Vol] 1.90 mg/dL High 0.70-1.20 [facility] Comment on above: Performed By: #### L 500.2500 #### [facility] [address] [place], [address] GAP 11 Normal 5-15 [facility] Comment on above: Performed By: #### L 500.2500 #### [facility] [address] [place], [address] GFR/1.73 sq M.predicted among non-blacks MDRD (S/P/Bld) [Vol rate/Area] 39 mL/min/{1.73_m2} Low >60 [facility] Comment on above: Result Comment: mL/m in/1.73m2 CKD-EPI Creatinine Equation (2020) Performed By: #### L 500.2500 #### [facility] [address] [place], [address] Glucose [Mass/Vol] 251 mg/dL High 70-99 [facility] Comment on above: Performed By: #### L 500.2500 #### [facility] [address] [place], [address] Potassium [Moles/Vol] 5.0 mmol/L Normal 3.3-5.1 [facility] Comment on above: Performed By: #### L 500.2500 #### [facility] [address] [place], [address] Sodium [Moles/Vol] 134 mmol/L Normal 133-145 [facility] Comment on above: Performed By: #### L 500.2500 #### [facility] [address] [place], [address] Urea nitrogen [Mass/Vol] 27 mg/dL High 4-19 [facility] Comment on above: Performed By: #### L 500.2500 #### [facility] [address] [place], [address] Carbon dioxide, total [Moles /volume] in Central venous bloodOrdered By: Chacorta Porter on 06-10-2024 CO2 [Moles/Vol] 23.9 mmol/L 21.0-32.0 [facility] Chloride assayOrdered By: Lata Porter on 06-10-2024 Chloride [Moles/Vol] 99 mmol/L 98-108 [facility] GFR/1.73 sq M.predicted chay g non-blacks MDRD (S/P/Bld) [Vol rate/Area]Ordered By: Chacorta Porter on 06-10-2024 Estimated GFR (MDRD) Non-Af Amer 39 Low >60 [facility] Comment on above: mL/min/1.73m2 CKD-EP I Creatinine Equation (2020) Glomerular filtration rate ( GFR) estimation/1.73 sq m using serum, plasma, or whole bOrdered By: Chacorta Porter on 06-10-2024 GFR/1.73 sq M.predicted among non-blacks MDRD (S/P/Bld) [Vol rate/Area] 39 mL/min/{1.73_m2} Low >60 [facility] Comment on above: mL/min/1.73m2 CKD-EP I Creatinine Equation (2020) Potassium (Unsp spec) [Mass/ Vol]Ordered By: Chacorta Porter on 06-10-2024 Potassium [Moles/Vol] 5.0 mmol/L 3.3-5.1 [facility] Potassium measurement (mass/ volume)Ordered By: Chacorta Porter on 06-10-2024 Potassium (Unsp spec) [Mass/Vol] 5.0 mmol/L 3.3-5.1 [facility] Serum creatinine measurement (mass/volume)Ordered By: Chacorta Porter on 06-10-2024 Creatinine [Mass/Vol] 1.90 mg/dL High 0.70-1.20 [facility] Serum glucose measurement (m ass/volume)Ordered By: Chacorta Porter on 06-10-2024 Glucose [Mass/Vol] 251 mg/dL High 70-99 [facility] Serum or plasma calcium tiera urement (mass/volume)Ordered By: Chacorta Porter on 06-10-2024 Calcium [Mass/Vol] 8.5 mg/dL 7.6-11.0 [facility] Serum or plasma urea nitroge n measurement (mass/volume)Ordered By: Chacorta Porter on 06-10-2024 Urea nitrogen [Mass/Vol] 27 mg/dL High 4-19 [facility] Sodium levelOrdered By: Chacorta Porter on 06-10-2024 Sodium [Moles/Vol] 134 mmol/L 133-145 [facility] Cardiology Visit Reporton Cardiology Visit Report [facility] 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 Is patient in pain?: No Allergies latex Allergy (Unknown, Verified 05/19/24 10:31) Unknown Vgvexue-MBF-AtG Reductase Inhibitor (Mddubio-Mjs-Juo Reductase Inhibitor) Adverse Reaction (Severe, Verified 05/19/24 [...] you fallen in the past year?: No [facility] History (Reviewed 05/19/24 @ 10:56 by Chacorta Porter REGULATORY COMPLIANCE MANAGER, REGULATORY COMPLIANCE MANAGER-C) Claudication of both lower extremities Hilar density Abnormal chest xray Preop cardiovascular exam CKD (chronic kidney disease), stage III GERD (gastroesophageal reflux disease) Chest congestion Preoperative evaluation to rule out surgical contraindication (more content not included)... Normal [facility] Absolute lymphocyte countOrd ered By: Sherice Avendano on 05-15-2024 Lymphocytes Auto (Unsp spec) [#/Vol] 0.88 10*3/uL 0.83-4.51 [facility] Absolute neutrophil countOrd ered By: Sherice Avendano on 05-15-2024 Neutrophils (Bld) [#/Vol] 3.7 10*3/uL 2.0-7.7 [facility] Albumin DL <= 20 mg/L (U) [M ass/Vol]Ordered By: Sherice Avendano on 05-15-2024 Urine Random Microalbumin 498.0 mg/L NO RANGE EST. [facility] Anion gap in Serum or Plasma Ordered By: Sherice Avendano on 05-15-2024 Anion gap [Moles/Vol] 11 mmol/L 5-15 [facility] Automated lymphocyte count a s percentage of total leukocytesOrdered By: Sherice Avendano on 05-15-2024 Lymphocytes/100 WBC Auto (Unsp spec) 16.6 % Low 19-41 [facility] BUN/creatinine ratioOrdered By: [facility] Avend[facility] on 05-15-2024 Urea nitrogen/Creatinine [Mass ratio] 16.5 mg/mg 10- [facility] Basophil percentageOrdered B y: Sherice Avendano on 05-15-2024 Basophils/100 WBC (Bld) 0.6 % 0-1 [facility] Bilirubin, totalOrdered By: Sherice Avendano on 05-15-2024 Bilirubin [Mass/Vol] 0.40 mg/dL 0.00-1.30 [facility] CBC W/Diff, Automatedon 05-02 Absolute Lymph 0.88 X10 3/uL Normal 0.83-4.51 [facility] Comment on above: Performed By: #### L 100.0100 #### [facility] [address] [place], [address] Absolute Neut 3.7 X10 3/uL Normal 2.0-7.7 [facility] Comment on above: Performed By: #### L 100.0100 #### [facility] [address] [place], [address] Basophils/100 WBC (Bld) 0.6 % Normal 0-1 [facility] Comment on above: Performed By: #### L 100.0100 #### [facility] [address] [place], [address] Eosinophils/100 WBC (Bld) 4.2 % Normal 0-5 [facility] Comment on above: Performed By: #### L 100.0100 #### [facility] [address] [place], [address] Erythrocyte distribution width (RBC) [Ratio] 14.0 % Normal 11.6-14.6 [facility] Comment on above: Performed By: #### L 100.0100 #### [facility] [address] [place], [address] Hematocrit (Bld) [Volume fraction] 33.9 % Low 40-54 [facility] Comment on above: Performed By: #### L 100.0100 #### [facility] [address] [place], [address] Hemoglobin (Bld) [Mass/Vol] 11.0 g/dL Low 13.0-16.5 [facility] Comment on above: Performed By: #### L 100.0100 #### [facility] [address] [place], [address] IG% 0.200 Normal 0.0-0.9 [facility] Comment on above: Result Comment: IG% - Immature Granulocytes (promyelocytes, myelocytes and metamyelocytes) > 1% indicates that a LEFT SHIFT is Present. Performed By: #### L 100.0100 #### [facility] [address] [place], [address] Lymphocytes/100 WBC (Bld) 16.6 % Low 19-41 [facility] Comment on above: Performed By: #### L 100.0100 #### [facility] [address] [place], [address] MCH (RBC) [Entitic mass] 29.5 pg Normal 27.0-32.0 [facility] Comment on above: Performed By: #### L 100.0100 #### [facility] [address] [place], [address] MCHC (RBC) [Mass/Vol] 32.4 g/dL Normal 32-36 [facility] Comment on above: Performed By: #### L 100.0100 #### [facility] [address] [place], [address] MCV (RBC) [Entitic vol] 90.9 fL Normal 80-94 [facility] Comment on above: Performed By: #### L 100.0100 #### [facility] [address] [place], [address] Monocytes/100 WBC (Bld) 9.4 % Normal 0-10 [facility] Comment on above: Performed By: #### L 100.0100 #### [facility] [address] [place], [address] Neutrophils/100 WBC (Bld) 69.0 % Normal 47-70 [facility] Comment on above: Performed By: #### L 100.0100 #### [facility] [address] [place], [address] Nucleated RBC (Bld) [#/Vol] 0 10*3/uL Normal 0-5 [facility] Comment on above: Performed By: #### L 100.0100 #### [facility] [address] [place], [address] Platelet mean volume (Bld) [Entitic vol] 9.4 fL Normal 6.2-12.0 [facility] Comment on above: Performed By: #### L 100.0100 #### [facility] [address] [place], [address] Platelets (Bld) [#/Vol] 369 10*3/uL Normal 150-450 [facility] Comment on above: Performed By: #### L 100.0100 #### [facility] [address] [place], [address] RBC (Bld) [#/Vol] 3.73 10*6/uL Low 4.6-6.2 [facility] Comment on above: Performed By: #### L 100.0100 #### [facility] [address] [place], [address] RDW SD 46.3 fl High 35.1-43.9 [facility] Comment on above: Performed By: #### L 100.0100 #### [facility] [address] [place], [address] WBC (Bld) [#/Vol] 5.3 10*3/uL Normal 4.4-11.0 [facility] Comment on above: Performed By: #### L 100.0100 #### [facility] [address] [place], [address] Calculated very low density lipoprotein (VLDL) cholesterol measurementOrdered By: Sherice Avendano on 05-15-2024 Calculated very low density lipoprotein (VLDL) cholesterol measurement 16 mg/dL 5-40 [facility] VLDL Cholesterol 16 mg/dL 5-40 [facility] Carbon dioxide, total [Moles /volume] in Central venous bloodOrdered By: Sherice Avendano on 05-15-2024 CO2 [Moles/Vol] 22.5 mmol/L 21.0-32.0 [facility] Chloride assayOrdered By: Raul Avendano on 05-15-2024 Chloride [Moles/Vol] 102 mmol/L 98-108 [facility] Comprehensive Metabolic Prof ilon 05-15-2024 Albumin [Mass/Vol] 3.7 g/dL Normal 3.4-4.8 [facility] Comment on above: Performed By: #### L 100.0100, L501.4021, L500.2500 #### [facility] [address] [place], [address] Albumin/Globulin [Mass ratio] 1.2 {ratio} Normal 0.9-2.4 [facility] Comment on above: Performed By: #### L 100.0100, L501.4021, L500.2500 #### [facility] [address] [place], [address] ALK PHOS 160 U/L High 40-129 [facility] Comment on above: Performed By: #### L 100.0100, L501.4021, L500.2500 #### [facility] [address] [place], [address] ALT [Catalytic activity/Vol] 16 U/L Normal <=46 [facility] Comment on above: Performed By: #### L 100.0100, L501.4021, L500.2500 #### [facility] [address] [place], [address] AST [Catalytic activity/Vol] 16 U/L Normal <=37 [facility] Comment on above: Performed By: #### L 100.0100, L501.4021, L500.2500 #### [facility] [address] [place], [address] Bilirubin [Mass/Vol] 0.40 mg/dL Normal 0.00-1.30 [facility] Comment on above: Performed By: #### L 100.0100, L501.4021, L500.2500 #### [facility] [address] [place], [address] BUN/CRE 16.5 RATIO Normal 10-20 [facility] Comment on above: Performed By: #### L 100.0100, L501.4021, L500.2500 #### [facility] [address] [place], [address] Calcium [Mass/Vol] 8.8 mg/dL Normal 7.6-11.0 [facility] Comment on above: Performed By: #### L 100.0100, L501.4021, L500.2500 #### [facility] [address] [place], [address] Chloride [Moles/Vol] 102 mmol/L Normal 98-108 [facility] Comment on above: Performed By: #### L 100.0100, L501.4021, L500.2500 #### [facility] [address] [place], [address] CO2 [Moles/Vol] 22.5 mmol/L Normal 21.0-32.0 [facility] Comment on above: Performed By: #### L 100.0100, L501.4021, L500.2500 #### [facility] [address] [place], [address] Creatinine [Mass/Vol] 2.17 mg/dL High 0.70-1.20 [facility] Comment on above: Performed By: #### L 100.0100, L501.4021, L500.2500 #### [facility] [address] [place], [address] GAP 11 Normal 5-15 [facility] Comment on above: Performed By: #### L 100.0100, L501.4021, L500.2500 #### [facility] [address] [place], [address] GFR/1.73 sq M.predicted among non-blacks MDRD (S/P/Bld) [Vol rate/Area] 33 mL/min/{1.73_m2} Low >60 [facility] Comment on above: Result Comment: mL/m in/1.73m2 CKD-EPI Creatinine Equation (2020) Performed By: #### L 100.0100, L501.4021, L500.2500 #### [facility] [address] [place], [address] Globulin (S) [Mass/Vol] 3.2 g/dL Normal 2.2-4.2 [facility] Comment on above: Performed By: #### L 100.0100, L501.4021, L500.2500 #### [facility] [address] [place], [address] Glucose [Mass/Vol] 121 mg/dL High 70-99 [facility] Comment on above: Performed By: #### L 100.0100, L501.4021, L500.2500 #### [facility] [address] [place], [address] Potassium [Moles/Vol] 5.1 mmol/L Normal 3.3-5.1 [facility] Comment on above: Performed By: #### L 100.0100, L501.4021, L500.2500 #### [facility] [address] [place], [address] Sodium [Moles/Vol] 136 mmol/L Normal 133-145 [facility] Comment on above: Performed By: #### L 100.0100, L501.4021, L500.2500 #### [facility] [address] [place], [address] T PROT 6.9 g/dL Normal 5.9-8.4 [facility] Comment on above: Performed By: #### L 100.0100, L501.4021, L500.2500 #### [facility] [address] [place], [address] Urea nitrogen [Mass/Vol] 36 mg/dL High 4-19 [facility] Comment on above: Performed By: #### L 100.0100, L501.4021, L500.2500 #### [facility] [address] [place], [address] Creatinine Unsp time (U) [Ma ss/Vol]Ordered By: Sherice Avendano on 05-15-2024 Creatinine (U) [Mass/Vol] 16.90 mg/dL Low 39-259 [facility] Eosinophil percentageOrdered By: Sherice Avendano on 05-15-2024 Eosinophils/100 WBC (Bld) 4.2 % 0-5 [facility] Erythrocyte distribution wid th ratioOrdered By: Sherice Avendano on 05-15-2024 Erythrocyte distribution width (RBC) [Ratio] 14.0 % 11.6-14.6 [facility] Erythrocyte distribution wid th standard deviationOrdered By: Sherice Avendano on 05-15-2024 Erythrocyte distribution width (RBC) [Entitic vol] 46.3 fL High 35.1-43.9 [facility] Erythrocyte distribution width (RBC) [Ratio] 46.3 fl High 35.1-43.9 [facility] GFR/1.73 sq M.predicted chay g non-blacks MDRD (S/P/Bld) [Vol rate/Area]Ordered By: Sherice Avendano on 05-15-2024 Estimated GFR (MDRD) Non-Af Amer 33 Low >60 [facility] Comment on above: mL/min/1.73m2 CKD-EP I Creatinine Equation (2020) Glomerular filtration rate ( GFR) estimation/1.73 sq m using serum, plasma, or whole bOrdered By: Sherice Avendano on 05-15-2024 GFR/1.73 sq M.predicted among non-blacks MDRD (S/P/Bld) [Vol rate/Area] 33 mL/min/{1.73_m2} Low >60 [facility] Comment on above: mL/min/1.73m2 CKD-EP I Creatinine Equation (2020) Hematocrit Auto (Bld) [Volum e fraction]Ordered By: Sherice Avendano on 05-15-2024 Hematocrit (Bld) [Volume fraction] 33.9 % Low 40-54 [facility] Hemoglobin A1con 05-15-2024 HbA1c (Bld) [Mass fraction] 8.9 % Normal <=5.6 [facility] Comment on above: Performed By: #### L 100.0100, L501.4021, L500.2500 #### [facility] [address] [place] [address]. [place], [address] Hemoglobin A1c percentageOrd ered By: Sherice Avendano on 05-15-2024 HbA1c (Bld) [Mass fraction] 8.9 % >5.7 [facility] Hemoglobin measurementOrdere d By: Sherice Avendano on 05-15-2024 Hemoglobin (Bld) [Mass/Vol] 11.0 g/dL Low 13.0-16.5 [facility] Immature granulocytes/100 WB C Auto (Bld)Ordered By: Sherice Avendano on 05-15-2024 Immature granulocytes/100 WBC (Bld) 0.200 % 0.0-0.9 [facility] Comment on above: IG% - Immature Granu locytes (promyelocytes, myelocytes and metamyelocytes) > 1% indicates that a LEFT SHIFT is Present. L506.1001on 05-15-2024 Vitamin D 25-OH 29.1 ng/mL Low 30-100 [facility] Comment on above: Result Comment: Laisha min D Status Deficiency: <20 ng/mL (50nmol/L) Insufficiency: 20-30 ng/mL (50-75 nmol/L) Sufficiency: 30-100 ng/mL (75-250 nmol/L) Toxicity: >100 ng/mL (>250 nmol/L) Performed By: #### L 100.0100, L501.4021, L500.2500 #### [facility] [place], [address] LDL calc ser/plasOrdered By: Sherice Avendano on 05-15-2024 Cholesterol in LDL [Mass/Vol] 62 mg/dL [facility] Comment on above: Tqdlbnbeef=044-196 m g/dL & Higher Frve=361 mg/dL or greater LDL Cholesterol, Calculated 62 mg/dL [facility] Comment on above: Vjrhxxuglq=401-291 m g/dL & Higher Loks=875 mg/dL or greater Laboratory - Chemistry and C hemistry - challengeOrdered By: Sherice Avendano on 05-15-2024 AST [Catalytic activity/Vol] 16 U/L <38 [facility] Lipid Profileon 05-15-2024 CHOL:HDL 2.36 Normal [facility] Comment on above: Performed By: #### L 100.0100, L501.4021, L500.2500 #### [facility] [address] [place], [address] Cholesterol [Mass/Vol] 135 mg/dL Normal <=200 [facility] Comment on above: Result Comment: Chol esterol level, Desirable <200 mg/dL Borderline high cholesterol 200-239 mg/dL High cholesterol >=240 mg/dL Recommendations of the NCEP Adult Treatment Panel for the following risk-cutoff thresholds for the [place] population. Performed By: #### L 100.0100, L501.4021, L500.2500 #### [facility] [address] [place], [address] Cholesterol in HDL [Mass/Vol] 57 mg/dL Normal [facility] Comment on above: Result Comment: Mela onal Cholesterol Education Program (NCEP) guidelines: <40 mg/dL: Low HDL-cholesterol (major risk factor for CHD) >= 60 mg/dL: High HDL-cholesterol (negative risk factor for CHD) HDL-cholesterol is affected by a number of factors, e.g. smoking, exercise, hormones, sex and age. Performed By: #### L 100.0100, L501.4021, L500.2500 #### [facility] [address] [place], [address] Cholesterol in LDL [Mass/Vol] 62 mg/dL Normal [facility] Comment on above: Result Comment: Bord ydyiuo=668-111 mg/dL Higher Uhvi=162 mg/dL or greater Performed By: #### L 100.0100, L501.4021, L500.2500 #### [facility] [address] [place], [address] Cholesterol in VLDL [Mass/Vol] 16 mg/dL Normal 5-40 [facility] Comment on above: Performed By: #### L 100.0100, L501.4021, L500.2500 #### [facility] [address] [place], [address] Triglyceride [Mass/Vol] 80 mg/dL Normal [facility] Comment on above: Result Comment: The drugs N-Acetylcysteine and Metamizole may falsely depress this assay. Normal range: <150 mg/dL Borderline High: 150-199 mg/dL High: 200-499 mg/dL Very High: >500 mg/dL Performed By: #### L 100.0100, L501.4021, L500.2500 #### [facility] [address] [place], [address] Lymphocytes Auto (Unsp spec) [#/Vol]Ordered By: Sherice Avendano on 05-15-2024 Lymphocytes (Bld) [#/Vol] 0.88 10*3/uL 0.83-4.51 [facility] Lymphocytes/100 WBC Auto (Un sp spec)Ordered By: Sherice Avendano on 05-15-2024 Lymphocytes/100 WBC (Bld) 16.6 % Low 19-41 [facility] MCV (mean corpuscular volume ) determinationOrdered By: Sherice Avendano on 05-15-2024 MCV (RBC) [Entitic vol] 90.9 fL 80-94 [facility] Mean corpuscular hemoglobin (MCH) determinationOrdered By: Sherice Avendano on 05-15-2024 MCH (RBC) [Entitic mass] 29.5 pg 27.0-32.0 [facility] Mean corpuscular hemoglobin concentration (MCHC) determinationOrdered By: Sherice Avendano on 05-15-2024 MCHC (RBC) [Mass/Vol] 32.4 g/dL 32-36 [facility] Mean platelet volume determi nationOrdered By: Sherice Avendano on 05-15-2024 Platelet mean volume (Bld) [Entitic vol] 9.4 fL 6.2-12.0 [facility] Microalbumin/creat ratio urO rdered By: Sherice Avendano on 05-15-2024 Urine Microalbumin/Creatinine Ratio 59189.5 mg/g CRE [facility] Monocyte percentageOrdered B y: Sherice Avendano on 05-15-2024 Monocytes/100 WBC (Bld) 9.4 % 0-10 [facility] Neutrophil percentageOrdered By: Sherice Avendano on 05-15-2024 Neutrophils/100 WBC (Bld) 69.0 % 47-70 [facility] Nucleated red blood cell per centageOrdered By: Sherice Avendano on 05-15-2024 Nucleated RBC/100 WBC (Bld) [Ratio] 0 % 0-5 [facility] Platelet countOrdered By: Raul Avendano on 05-15-2024 Platelets (Bld) [#/Vol] 369 10*3/uL 150-450 [facility] Potassium (Unsp spec) [Mass/ Vol]Ordered By: Sherice Avendano on 05-15-2024 Potassium [Moles/Vol] 5.1 mmol/L 3.3-5.1 [facility] Potassium measurement (mass/ volume)Ordered By: Sherice Avendano on 05-15-2024 Potassium (Unsp spec) [Mass/Vol] 5.1 mmol/L 3.3-5.1 [facility] RBC Auto (Bld) [#/Vol]Ordere d By: Sherice Avendano on 05-15-2024 RBC (Bld) [#/Vol] 3.73 10*6/uL Low 4.6-6.2 [facility] Random urine creatinine tiera urement (mass/volume)Ordered By: Sheriec Avendano on 05-15-2024 Creatinine Unsp time (U) [Mass/Vol] 16.90 mg/dL Low 39-259 [facility] Screening total cholesterol/ high density lipoprotein (HDL) cholesterol ratioOrdered By: Sherice Avendano on 05-15-2024 Cholesterol.total/Choles terol in HDL [Mass ratio] 2.36 {ratio} [facility] Serum creatinine measurement (mass/volume)Ordered By: Sherice Avendano on 05-15-2024 Creatinine [Mass/Vol] 2.17 mg/dL High 0.70-1.20 [facility] Serum globulin measurementOr dered By: Sherice Avendano on 05-15-2024 Globulin (S) [Mass/Vol] 3.2 g/dL 2.2-4.2 [facility] Serum glucose measurement (m ass/volume)Ordered By: Sherice Avendano on 05-15-2024 Glucose [Mass/Vol] 121 mg/dL High 70-99 [facility] Serum or plasma alanine bradford otransferase (ALT) measurementOrdered By: Sherice Avendano on 05-15-2024 ALT [Catalytic activity/Vol] 16 U/L <47 [facility] Serum or plasma albumin tiera urement (mass/volume)Ordered By: Sherice Avendano on 05-15-2024 Albumin [Mass/Vol] 3.7 g/dL 3.4-4.8 [facility] Serum or plasma albumin/glob ulin mass ratioOrdered By: Sherice Avendano 05-15-2024 Albumin/Globulin [Mass ratio] 1.2 {ratio} 0.9-2.4 [facility] Serum or plasma alkaline lashell sphatase measurementOrdered By: Sherice Avendano on 05-15-2024 ALP [Catalytic activity/Vol] 160 U/L High 40-129 [facility] Serum or plasma calcium tiera urement (mass/volume)Ordered By: Sherice Avendano 05-15-2024 Calcium [Mass/Vol] 8.8 mg/dL 7.6-11.0 [facility] Serum or plasma cholesterol in HDL measurement (mass/volume)Ordered By: Sherice Avendano 05-15-2024 Cholesterol in HDL [Mass/Vol] 57 mg/dL >40 [facility] Comment on above: National Cholesterol Education Program (NCEP) guidelines:<40 mg/dL: Low HDL-cholesterol (major risk factor for CHD)>= 60 mg/dL: High HDL-cholesterol (negative risk factor for CHD)HDL-cholesterol is affected by a number of factors, e.g. smoking, exercise, hormones, sex and age. Serum or plasma cholesterol measurement (mass/volume)Ordered By: Sherice Avendano on 05-15-2024 Cholesterol [Mass/Vol] 135 mg/dL <201 [facility] Comment on above: Cholesterol level, D esirable <200 mg/dLBorderline high cholesterol 200-239 mg/dLHigh cholesterol >=240 mg/dLRecommendations of the NCEP Adult Treatment Panel for the following risk-cutoff thresholds for the [place] population. Serum or plasma urea nitroge n measurement (mass/volume)Ordered By: Sherice Avendano on 05-15-2024 Urea nitrogen [Mass/Vol] 36 mg/dL High 4-19 [facility] Sodium levelOrdered By: Luis A tranzioneros Avendano on 05-15-2024 Sodium [Moles/Vol] 136 mmol/L 133-145 [facility] TSH DL <= 0.005 mIU/L QnOrde red By: Sherice Avendano on 05-15-2024 Thyroid Stimulating Hormone (TSH) 2.570 uIU/mL 0.300-4.200 [facility] TSH Qn 2.570 uIU/mL 0.300-4.200 [facility] Thyroid Stim Hormone (TSH)on 05-15-2024 TSH 2.570 uIU/mL Normal 0.300-4.200 [facility] Comment on above: Performed By: #### L 100.0100, L501.4021, L500.2500 #### [facility] [address] [place], [place], [id number] Total proteinOrdered By: John Avendano on 05-15-2024 Protein [Mass/Vol] 6.9 g/dL 5.9-8.4 [facility] Triglycerides measurementOrd ered By: Sherice Avendano on 05-15-2024 Triglyceride [Mass/Vol] 80 mg/dL <199 [facility] Comment on above: The drugs N-Acetylcy steine and Metamizole may falsely depress this assay. Normal range: <150 mg/dLBorderline High: 150-199 mg/dLHigh: 200-499 mg/dLVery High: >500 mg/dL Urine albumin measurement wi th detection limit of 20 mg/L or less (mass/volume)Ordered By: Sherice Avendano on 05-15-2024 Albumin DL <= 20 mg/L (U) [Mass/Vol] 498.0 mg/L NO RANGE EST. [facility] Vitamin D, 25-hydroxyOrdered By: Sherice Avendano on 05-15-2024 Vitamin D 25-Hydroxy 29.1 ng/mL Low 30-100 [facility] Comment on above: Vitamin D StatusDefi ciency: <20 ng/mL (50nmol/L)Insufficiency: 20-30 ng/mL (50-75 nmol/L)Sufficiency: 30-100 ng/mL (75-250 nmol/L)Toxicity: >100 ng/mL (>250 nmol/L) White blood cell (WBC) count Ordered By: Sherice Avendano on 05-15-2024 WBC (Bld) [#/Vol] 5.3 10*3/uL 4.4-11.0 [facility] Internal Medicine Office Vis iton 05-07-2024 Internal Medicine Office Visit [facility] [address] [place] [address] [place] [address] OFFICE VISIT Date of Service: 05/07/24 MR#: [id number] Acct: [id number] Name: OLIVIER MENDOZA Rep #: [id number] : 1960 Provider: Dr. Sherice rock MD Age/Sex: 63/M [place] [facility] [place]: Signed Intake Vital Signs 01/09/24 14:20 [...] M FU Chief Complaint: Follow-up chronic conditions Forensic Ballistics Expert Required: No Is patient in pain?: No Allergies latex Allergy (Unknown, Verified 05/07/24 13:25) Unknown Yzzizle-JCJ-AwL Reductase Inhibitor (Cbakpkd-Aom-Ove Reductase Inhibitor) Adverse Reaction (Severe, Verified 05/07/24 [...] you fallen in the past year?: No [facility] Medical History (Updated 05/07/24 @ 16:28 by [...] vaccine series completed Atherosclerotic heart disease of [place] coronary artery without angina pectoris Mixed hyperlipidemia [...] cancer Gra (more content not included)... Normal [facility] Stress Reporton 04-02-2024 Stress Report [facility] [address] [place] [address] MR#: [id number] Acct: [id number] Name: OLIVIER MENDOZA Rep #: [id number] : 1960 63 From: Pop Castellanos MD [...] Antoine Date Dictated: 04/02/24720 Date Transcribed: 04/02/24720 Supervising Floorperson: CO Signed Normal [facility] Lower Ext Art Exam w/o Exerc bg 04-01-2024 Lower Ext Art Exam w/o Exercis [facility] [address] [place] [address] Lower Ext Art Exam w/o Exercis 04/01/24 0957 MR#: [id number] Acct: [id number] Name: OLIVIER MENDOZA Rep #: [id number] : 1960 63 From: Nicholas Teixeira MD Attending Dr: Marlena Agnel, PA Status: REG CLI Ordering Dr: Marlena [...] to testing and did not take medication. health informatics advisor consulted and patient released home due to [...] Date Dictated: 04/01/24 0957 Date Transcribed: 04/01/241556 Supervising Floorperson: Signed Normal [facility] Cardiology Visit Reporton Cardiology Visit Report [facility] [address] [place] [address] OFFICE VISIT Date of Service: 03/11/24 MR#: [id number] Acct: [id number] Name: OLIVIER MENDOZA Rep #: [id number] : 1960 Provider: ANIL Padilla Age/Sex: 63/M [place] [facility] [place] [facility] [place] Status: Signed HPI HPI History of [...] 99 Intake Visit Reasons: 8 WK FU Forensic Ballistics Expert Required: No Is patient in pain?: No Allergies latex Allergy (Unknown, Verified 03/11/24 14:21) Unknown Czgbgvd-LPS-EtQ Reductase Inhibitor (Xwzsrhe-Sxk-Izf Reductase Inhibitor) Adverse Reaction (Severe, Verified 03/11/24 [...] you fallen in the past year?: No [facility] Medical History (Updated 03/11/24 @ 14:45 by [...] vaccine series completed Atherosclerotic heart disease of [place] coronary artery without angina pectoris Mixed hyperlipidemia 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 Normal [facility] Basic Metabolic Profile (BMP )on 03-10-2024 BUN/CRE 12.6 RATIO Normal 12-21 [facility] Comment on above: Order Comment: DR DELIA YADAV AND DR TILLEY ORDERD BMPDR ROOF ORDERD A LIVER AND LIPIDDR TREVA ORDERD A SPOT URIN Performed By: #### L 100.0100, L501.4021, L500.2500 #### [facility] [address] [place], [address] CA,Total 8.1 mg/dL Low 8.5-10.1 [facility] Comment on above: Order Comment: DR DELIA YADAV AND DR TILLEY ORDERD BMPDR ROOF ORDERD A LIVER AND LIPIDDR TREVA ORDERD A SPOT URIN Performed By: #### L 100.0100, L501.4021, L500.2500 #### [facility] [address] [place], [address] Chloride [Moles/Vol] 105 mmol/L Normal 98-107 [facility] Comment on above: Order Comment: DR DELIA YADAV AND DR TILLEY ORDERD BMPDR ROOF ORDERD A LIVER AND LIPIDDR TREVA ORDERD A SPOT URIN Performed By: #### L 100.0100, L501.4021, L500.2500 #### [facility] [address] [place], [address] CO2 [Moles/Vol] 28.0 mmol/L Normal 21.0-32.0 [facility] Comment on above: Order Comment: DR DELIA YADAV AND DR TILLEY ORDERD BMPDR ROOF ORDERD A LIVER AND LIPIDDR TREVA ORDERD A SPOT URIN Performed By: #### L 100.0100, L501.4021, L500.2500 #### [facility] [address] [place], [address] Creatinine [Mass/Vol] 2.23 mg/dL High 0.70-1.30 [facility] Comment on above: Order Comment: DR DELIA YADAV AND DR TILLEY ORDERD BMPDR ROOF ORDERD A LIVER AND LIPIDDR TREVA ORDERD A SPOT URIN Result Comment: The validity of the calculated GFR GFRAA in patients over 70 years has not been determined. Clinical correlation is essential. Performed By: #### L 100.0100, L501.4021, L500.2500 #### [facility] [address] [place], [address] EST GFR - AA 38 mL/min Low >60 [facility] Comment on above: Order Comment: DR DELIA YADAV AND DR TILLEY ORDERD BMPDR ROOF ORDERD A LIVER AND LIPIDDR TREVA ORDERD A SPOT URIN Result Comment: Afri can [place] GFR Calc Performed By: #### L 100.0100, L501.4021, L500.2500 #### [facility] [address] [place], [address] GAP 3 Low 5-15 [facility] Comment on above: Order Comment: DR DELIA YADAV AND DR TILLEY ORDERD BMPDR ROOF ORDERD A LIVER AND LIPIDDR TREVA ORDERD A SPOT URIN Performed By: #### L 100.0100, L501.4021, L500.2500 #### [facility] [address] [place], [address] GFR/1.73 sq M.predicted among non-blacks MDRD (S/P/Bld) [Vol rate/Area] 32 mL/min/{1.73_m2} Low >60 [facility] Comment on above: Order Comment: DR EDLIA YADAV AND DR TILLEY ORDERD BMPDR ROOF ORDERD A LIVER AND LIPIDDR TREVA ORDERD A SPOT URIN Result Comment: Non- GFR Calc Performed By: #### L 100.0100, L501.4021, L500.2500 #### [facility] [address] [place], [address] Glucose [Mass/Vol] 149 mg/dL High 74-106 [facility] Comment on above: Order Comment: DR DELIA YADAV AND DR TILLEY ORDERD BMPDR ROOF ORDERD A LIVER AND LIPIDDR TREVA ORDERD A SPOT URIN Result Comment: Fast ing Glucose result greater than or equal to 126 mg/dL suggests DIABETES MELLITUS per A.D.A. criteria. Performed By: #### L 100.0100, L501.4021, L500.2500 #### [facility] [address] [place], [address] Potassium [Moles/Vol] 4.4 mmol/L Normal 3.5-5.1 [facility] Comment on above: Order Comment: DR DELIA YADAV AND DR TILLEY ORDERD BMPDR ROOF ORDERD A LIVER AND LIPIDDR TREVA ORDERD A SPOT URIN Performed By: #### L 100.0100, L501.4021, L500.2500 #### [facility] [address] [place], [address] Sodium [Moles/Vol] 137 mmol/L Normal 136-145 [facility] Comment on above: Order Comment: DR DELIA YADAV AND DR TILLEY ORDERD BMPDR ROOF ORDERD A LIVER AND LIPIDDR TREVA ORDERD A SPOT URIN Performed By: #### L 100.0100, L501.4021, L500.2500 #### [facility] [address] [place], [address] Urea nitrogen [Mass/Vol] 28 mg/dL High 7-18 [facility] Comment on above: Order Comment: DR DELIA YADAV AND DR TILLEY ORDERD BMPDR ROOF ORDERD A LIVER AND LIPIDDR TREVA ORDERD A SPOT URIN Performed By: #### L 100.0100, L501.4021, L500.2500 #### [facility] [address] [place], [address] Bilirubin directOrdered By: Gennaro Fuentes on 03-10-2024 Bilirubin.direct [Mass/Vol] 0.12 mg/dL 0.00-0.30 [facility] Bilirubin, totalOrdered By: Gennaro Fuentes on 03-10-2024 Bilirubin [Mass/Vol] 0.50 mg/dL 0.20-1.00 [facility] Comment on above: For patients on eltr ombopag therapy, use of Dimension [place] TBIL is not recommended. Blood urea nitrogen (BUN)/cr eatinine ratioOrdered By: Gennaro Fuentes on 03-10-2024 Urea nitrogen/Creatinine [Mass ratio] 12.6 mg/mg 10-20 [facility] Carbon dioxide measurementOr dered By: Gennaro Fuentes on 03-10-2024 CO2 [Moles/Vol] 28.0 mmol/L 21.0-32.0 [facility] Chloride measurementOrdered By: Gennaro Fuentes on 03-10-2024 Chloride [Moles/Vol] 105 mmol/L 98-107 [facility] Estimated glomerular filtrat ion rate (GFR) AmericanOrdered By: Gennaro Fuentes on 03-10-2024 Estimated GFR (MDRD) Amer 38 mL/min Low >60 [facility] Comment on above: GFR Calc Glomerular filtration rate ( GFR) estimationOrdered By: Gennaro Fuentes on 03-10-2024 Estimated GFR (MDRD) Non-Af Amer 32 mL/min Low >60 [facility] Comment on above: Non- GFR Calc Glucose measurementOrdered B y: Gennaro Fuentes on 03-10-2024 Glucose [Mass/Vol] 149 mg/dL High 74-106 [facility] Comment on above: Fasting Glucose resu lt greater than or equal to 126 mg/dL suggests DIABETES MELLITUS per A.D.A. criteria. High density lipoprotein (HD L) measurementOrdered By: Gennaro Fuentes on 03-10-2024 Cholesterol in HDL [Mass/Vol] 69 mg/dL >40 [facility] Comment on above: The drugs N-Acetylcy steine and Metamizole may falsely depress this assay. Reference Range HDL <40 mg/dL Low HDL Cholesterol HDL >or= 60 mg/dL High HDL Cholesterol Laboratory - Chemistry and C hemistry - challengeOrdered By: Gennaro Fuentes on 03-10-2024 AST [Catalytic activity/Vol] 13 U/L Low 15-37 [facility] Lipid Profileon 03-10-2024 Cholesterol [Mass/Vol] 202 mg/dL High 200 [facility] Comment on above: Order Comment: DR DELIA YADAV AND DR TILLEY ORDERD BMPDR GERMAN ORDERD A LIVER AND LIPIDDR TREVA ORDERD A SPOT URIN Result Comment: <200 mg/dL Desirable 200-240 mg/dL Borderline >240 mg/dL High Risk Performed By: #### L 100.0100, L501.4021, L500.2500 #### [facility] [address] [place], [address] Cholesterol in HDL [Mass/Vol] 69 mg/dL Normal [facility] Comment on above: Order Comment: DR DELIA YADAV AND DR TILLEY ORDERD BMPDR ROOF ORDERD A LIVER AND LIPIDDR TREVA ORDERD A SPOT URIN Result Comment: The drugs N-Acetylcysteine and Metamizole may falsely depress this assay. Reference Range HDL <40 mg/dL Low HDL Cholesterol HDL >or= 60 mg/dL High HDL Cholesterol Performed By: #### L 100.0100, L501.4021, L500.2500 #### [facility] [address] [place], [address] Cholesterol in LDL [Mass/Vol] 113 mg/dL Normal 0-130 [facility] Comment on above: Order Comment: DR DELIA YADAV AND DR TILLEY ORDERD BMPDR ROOF ORDERD A LIVER AND LIPIDDR TREVA ORDERD A SPOT URIN Performed By: #### L 100.0100, L501.4021, L500.2500 #### [facility] [address] [place], [address] Cholesterol in VLDL [Mass/Vol] 20 mg/dL Normal 5-40 [facility] Comment on above: Order Comment: DR DELIA YADAV AND DR TILLEY ORDERD BMPDR ROOF ORDERD A LIVER AND LIPIDDR TREVA ORDERD A SPOT URIN Performed By: #### L 100.0100, L501.4021, L500.2500 #### [facility] [address] [place], [address] Triglyceride [Mass/Vol] 99 mg/dL Normal [facility] Comment on above: Order Comment: [...] By: #### L 100.0100, L501.4021, L500.2500 #### [facility] [address] [place], [address] HDL Normal [facility] [facility] Comment on above: Result Comment: NOT NEEDED' The drugs N-Acetylcysteine and Metamizole may falsely depress this assay. Performed By: #### L 100.0100, L501.4021, L500.2500 #### [facility] [address] [place], [address] TRIG Normal [facility] Comment on above: Result Comment: NOT NEEDED' The drugs N-Acetylcysteine and Metamizole may falsely depress this assay. Performed By: #### L 100.0100, L501.4021, L500.2500 #### [facility] [address] [place], [address] CHOL Normal 200 [facility] Comment on above: Result Comment: NOT NEEDED' Performed By: #### L 100.0100, L501.4021, L500.2500 #### [facility] [address] [place], [address] LDL Normal 0-130 [facility] Comment on above: Result Comment: NOT NEEDED' Performed By: #### L 100.0100, L501.4021, L500.2500 #### [facility] [address] [place], [address] VLDL Normal 5-40 [facility] Comment on above: Result Comment: NOT NEEDED' Performed By: #### L 100.0100, L501.4021, L500.2500 #### [facility] [address] [place], [address] Liver Profileon 03-10-2024 Albumin [Mass/Vol] 2.8 g/dL Low 3.2-5.0 [facility] Comment on above: Order Comment: DR DELIA YADAV AND DR TILLEY ORDERD BMPDR ROOF ORDERD A LIVER AND LIPIDDR TREVA ORDERD A SPOT URIN Performed By: #### L 100.0100, L501.4021, L500.2500 #### [facility] [address] [place], [address] ALK P 203 U/L High 45-117 [facility] Comment on above: Order Comment: DR DELIA YADAV AND DR TILLEY ORDERD BMPDR ROOF ORDERD A LIVER AND LIPIDDR TREVA ORDERD A SPOT URIN Performed By: #### L 100.0100, L501.4021, L500.2500 #### [facility] [address] [place], [address] ALT [Catalytic activity/Vol] 24 U/L Normal 16-61 [facility] Comment on above: Order Comment: DR DELIA YADAV AND DR TILLEY ORDERD BMPDR ROOF ORDERD A LIVER AND LIPIDDR TREVA ORDERD A SPOT URIN Performed By: #### L 100.0100, L501.4021, L500.2500 #### [facility] [address] [place], [address] AST [Catalytic activity/Vol] 13 U/L Low 15-37 [facility] Comment on above: Order Comment: DR DELIA TILLEY ORDERD BMPDR ROOF ORDERD A LIVER AND LIPIDDR TREVA ORDERD A SPOT URIN Performed By: #### L 100.0100, L501.4021, L500.2500 #### [facility] [address] [place], [address] Bilirubin [Mass/Vol] 0.50 mg/dL Normal 0.20-1.00 [facility] Comment on above: Order Comment: DR DELIA YADAV AND DR TILLEY ORDERD BMPDR ROOF ORDERD A LIVER AND LIPIDDR TREVA ORDERD A SPOT URIN Result Comment: For patients on eltrombopag therapy, use of Dimension [place] TBIL is not recommended. Performed By: #### L 100.0100, L501.4021, L500.2500 #### [facility] [address] [place], [address] Bilirubin.direct [Mass/Vol] 0.12 mg/dL Normal 0.00-0.30 [facility] Comment on above: Order Comment: DR DELIA YADAV AND DR TILLEY ORDERD BMPDR ROOF ORDERD A LIVER AND LIPIDDR TREVA ORDERD A SPOT URIN Performed By: #### L 100.0100, L501.4021, L500.2500 #### [facility] [address] [place], [address] Globulin (S) [Mass/Vol] 3.7 g/dL Normal 2.2-4.2 [facility] Comment on above: Order Comment: DR DELIA YADAV AND DR TILLEY ORDERD BMPDR ROOF ORDERD A LIVER AND LIPIDDR TREVA ORDERD A SPOT URIN Performed By: #### L 100.0100, L501.4021, L500.2500 #### [facility] [address] [place], [address] T PROT 6.5 g/dL Normal 6.4-8.2 [facility] Comment on above: Order Comment: DR DELIA YADAV AND DR TILLEY ORDERD BMPDR ROOF ORDERD A LIVER AND LIPIDDR TREVA ORDERD A SPOT URIN Performed By: #### L 100.0100, L501.4021, L500.2500 #### [facility] [address] [place], [address] ALB Normal 3.2-5.0 [facility] Comment on above: Result Comment: NOT NEEDED' Performed By: #### L 100.0100, L501.4021, L500.2500 #### [facility] [address] [place], [address] ALK P Normal 45-117 [facility] Comment on above: Result Comment: NOT NEEDED' Performed By: #### L 100.0100, L501.4021, L500.2500 #### [facility] [address] [place], [address] ALT Normal 16-61 [facility] Comment on above: Result Comment: NOT NEEDED' Performed By: #### L 100.0100, L501.4021, L500.2500 #### [facility] [address] [place], [address] AST Normal 15-37 [facility] Comment on above: Result Comment: NOT NEEDED' Performed By: #### L 100.0100, L501.4021, L500.2500 #### [facility] [address] [place], [address] D BILI Normal 0.00-0.30 [facility] Comment on above: Result Comment: NOT NEEDED' Performed By: #### L 100.0100, L501.4021, L500.2500 #### [facility] [address] [place], [address] T BILI Normal 0.20-1.00 [facility] Comment on above: Result Comment: NOT NEEDED' Performed By: #### L 100.0100, L501.4021, L500.2500 #### [facility] [address] [place], [address] T PROT Normal 6.4-8.2 [facility] Comment on above: Result Comment: NOT NEEDED' Performed By: #### L 100.0100, L501.4021, L500.2500 #### [facility] [address] [place], [address] Low density lipoprotein (LDL ) cholesterol measurementOrdered By: Gennaro Fuentes on 03-10-2024 Cholesterol in LDL [Mass/Vol] 113 mg/dL 0-130 [facility] Potassium measurementOrdered By: Gennaro Fuentes on 03-10-2024 Potassium [Moles/Vol] 4.4 mmol/L 3.5-5.1 [facility] Protein+Creatinine Ratio,Uri neon 03-10-2024 PROT:CRE RATIO 3472 mg/g CRE High 0-200 [facility] Comment on above: Performed By: #### L 100.0100, L501.4021, L500.2500 #### [facility] [address] [place], [address] Protein (U) [Mass/Vol] 224.3 mg/dL High <11.9 [facility] Comment on above: Performed By: #### L 100.0100, L501.4021, L500.2500 #### [facility] [address] [place], [address] UR CREAT 64.60 mg/dL Normal NO RANGE EST. [facility] Comment on above: Performed By: #### L 100.0100, L501.4021, L500.2500 #### [facility] [address] [place], [address] Protein/Creatinine (U) [Mass ratio]Ordered By: Gennaro Fuentes on 03-10-2024 Urine Protein/Creatinine Ratio 3472 mg/g CRE High 0-200 [facility] Random urine protein measure mentOrdered By: Gennaro Fuentes on 03-10-2024 Protein (U) [Mass/Vol] 224.3 mg/dL High 0.0-11.8 [facility] Serum anion gap measurementO rdered By: Gennaro Fuentes on 03-10-2024 Anion gap [Moles/Vol] 3 mmol/L Low 5-15 [facility] Serum globulin measurementOr dered By: Gennaro Fuentes on 03-10-2024 Globulin (S) [Mass/Vol] 3.7 g/dL 2.2-4.2 [facility] Serum or plasma alanine bradford otransferase (ALT) measurementOrdered By: Gennaro Fuentes on 03-10-2024 ALT [Catalytic activity/Vol] 24 U/L 16-61 [facility] Serum or plasma albumin tiera urement (mass/volume)Ordered By: Gennaro Fuentes on 03-10-2024 Albumin [Mass/Vol] 2.8 g/dL Low 3.2-5.0 [facility] Serum or plasma alkaline lashell sphatase measurementOrdered By: Gennaro Fuentes on 03-10-2024 ALP [Catalytic activity/Vol] 203 U/L High 45-117 [facility] Serum or plasma calcium tiera urement (mass/volume)Ordered By: Gennaro Fuentes on 03-10-2024 Calcium [Mass/Vol] 8.1 mg/dL Low 8.5-10.1 [facility] Serum or plasma cholesterol measurement (mass/volume)Ordered By: Gennaro Fuentes on 03-10-2024 Cholesterol [Mass/Vol] 202 mg/dL High <200 [facility] Comment on above: <200 mg/dL Desirable 200-240 mg/dL Borderline >240 mg/dL High Risk Serum or plasma creatinine m easurement (mass/volume)Ordered By: Gennaro Fuentes on 03-10-2024 Creatinine [Mass/Vol] 2.23 mg/dL High 0.70-1.30 [facility] Comment on above: The validity of the calculated GFR & GFRAA in patients over 70 years has not been determined. Clinical correlation is essential. Serum or plasma urea nitroge n measurement (mass/volume)Ordered By: Gennaro Fuentes on 03-10-2024 Urea nitrogen [Mass/Vol] 28 mg/dL High 7-18 [facility] Sodium levelOrdered By: Amparo Fuentes on 03-10-2024 Sodium [Moles/Vol] 137 mmol/L 136-145 [facility] Total proteinOrdered By: Sean Fuentes on 03-10-2024 Protein [Mass/Vol] 6.5 g/dL 6.4-8.2 [facility] Triglycerides measurementOrd ered By: Gennaro Fuentes on 03-10-2024 Triglyceride [Mass/Vol] 99 mg/dL <199 [facility] Comment on above: The drugs N-Acetylcy steine and Metamizole may falsely depress this assay.Serum Triglycerides Reference Interval Normal <150 mg/dL Borderline high 150 - 199 mg/dL High 200 - 499 mg/dL Very High > or = 500 mg/dL Urine creatinine measurement (mass/volume)Ordered By: Gennaro Fuentes on 03-10-2024 Creatinine (U) [Mass/Vol] 64.60 mg/dL NO RANGE EST. [facility] Very low density lipoprotein (VLDL) cholesterol measurementOrdered By: Gennaro Fuentes on 03-10-2024 VLDL Cholesterol 20 mg/dL 5-40 [facility] Chest without Contraston Chest without Contrast [facility] Imaging [place] [address] Chest without Contrast MR#: [id number] Acct: [id number] Name: OLIVIER MENDOZA Rep #: [id number] : 1960 M 63 From: Timi Nicole MD PCP: Dr. Sherice Avendano MD Status: REG CLI Study: Chest without Contrast Date of Exam: 02/24/24 Exam# [id number] Ordering Dr: Sherice Avendano MD -[id number] INDICATION: Abnormal Chest X-ray EXAMINATION: CT [...] EST , CC: Dr. Sherice Avendano MD Supervising Floorperson: Signed Normal [facility] Echo Completeon 02-24-2024 Echo Complete [facility] [place] [address] Echo Complete 02/24/24 0845 MR#: [id number] Acct: [id number] Name: OLIVIER MENDOZA Rep #: [id number] : 1960 63 From: Pop Castellanos MD Attending Dr: Gennaro Fuentes REGULATORY COMPLIANCE MANAGER-C Status: JULIETTE PEDRO Ordering Dr: Chacorta Porter NP REGULATORY COMPLIANCE MANAGER-C Date: 02/24/24 Location: [place] Sex: M C Admitted: Reason For Study: [...] 02/24/24 1010 Date Pop Castellanos MD CC: HTERESAC Chacorta Porter; YORDAN-C Gennaro Fuentes; Dr. Sherice Avendano MD Date Dictated: 02/24/24 0845 Date Transcribed: 02/24/24 1010 Supervising Floorperson: Signed Normal [facility] Renal Artery Duplex Ultrasou ndon 02-24-2024 Renal Artery Duplex Ultrasound [facility] [address] [place] [address] Renal Artery Duplex Ultrasound 02/24/2414 MR#: [id number] Acct: [id number] Name: OLIVIER MENDOZA Rep #: [id number] : 1960 63 From: Nicholas Teixeira MD Attending Dr: SHAUN Oliveira Status: JULIETTE PEDRO Ordering Dr: Gennaro Fuentes NP REGULATORY COMPLIANCE MANAGERKarelC Date: 02/24/24 Location: CT Sex: M [...] Preston 02/24/241642 Date Nicholas Teixeira MD CC: REGULATORY COMPLIANCE MANAGER-C Gennaro Fuentes; Dr. Sherice Avendano MD Date Dictated: 02/24/24813 Date Transcribed: 02/24/241642 Supervising Floorperson: Iris Senior [facility] 36on 02-12-2024 36 Patient called and LM to cancel his appt for today (02/12/24) and to reschedule to March if possible. Reached out to pt, call goes straight byron . [employer] to reschedule. Normal [facility] Cardiology Visit Reporton Cardiology Visit Report [facility] [address] [place] [address] OFFICE VISIT Date of Service: 01/16/24 MR#: [id number] Acct: [id number] Name: OLIVIER MENDOZA Rep #: [id number] : 1960 Provider: SHAUN hinojosa Age/Sex: 63/M [place] [facility] [place] Status: Signed HPI HPI History of [...] 100 Intake Visit Reasons: See Clinical Note Forensic Ballistics Expert Required: No Is patient in pain?: No Allergies latex Allergy (Unknown, Verified 01/16/24 14:21) Unknown Sctuaup-CKL-VcO Reductase Inhibitor (Rsicbxp-Ocu-Uhr Reductase Inhibitor) Adverse Reaction (Severe, Verified 01/16/24 [...] (Reviewed 01/16/24 @ 16:27 by Gennaro Fuentes REGULATORY COMPLIANCE MANAGER, REGULATORY COMPLIANCE MANAGER-C) Hilar density Abnormal chest xray Preop cardiovascular exam CKD (chronic kidney disease), stage III GERD (gastroesophageal reflux disease) Chest congestion Preoperative evaluation to rule out surgical contraindication Sinusitis Skin cyst Fatigue Left elbow pain Health care maintenance Proteinuria Nephropathy Bilateral lower extremity edema COVID-19 vaccine series completed Atherosclerotic heart disease of [place] coronary artery without angina pectoris Mixed hyperlipidemia Neuropathy due to type (more content not included)... Normal [facility] 12 Lead EKGon 01-09-2024 12 Lead EKG [facility] Cardiovascular Services [address] [place] [address] 12 Lead EKG 01/09/24 1932 MR#: [id number] Acct: [id number] Name: OLIVIER MENDOZA Rep #: [id number] : 1960 63 From: Pop Castellanos MD [...] Abnormal ECG Confirmed by EMANUEL WERNER, POP ([id number]), marketing editor RIAN SOLORIO ([id number]) on 01/13/2024 10:12:46 AM Referred By: Denzel Carlin Confirmed By: POP CASTELLANOS MD 01/13/24 1012 Date Pop Castellanos MD CC: Dr. Sherice Avendano MD; Dr. Denzel Carlin, DO Signed Normal [facility] BNP,B-Type NATRIURETIC PEPTI [place] 01-09-2024 Natriuretic peptide B (Bld) [Mass/Vol] 472.9 pg/mL High 0-100 [facility] Comment on above: Performed By: #### L 501.5425, L500.2500, L100.0100, L503.6620 #### [facility] [address] [place], [address] Basic Metabolic Profile (BMP )on 01-09-2024 BUN/CRE 12.3 RATIO Normal 10-20 [facility] Comment on above: Order Comment: 1 Y Performed By: #### L 501.5425, L500.2500, L100.0100, L503.6620 #### [facility] [address] [place], [address] CA,Total 8.3 mg/dL Low 8.5-10.1 [facility] Comment on above: Order Comment: 1 Y Performed By: #### L 501.5425, L500.2500, L100.0100, L503.6620 #### [facility] [address] [place], [address] Chloride [Moles/Vol] 106 mmol/L Normal 98-107 [facility] Comment on above: Order Comment: 1 Y Performed By: #### L 501.5425, L500.2500, L100.0100, L503.6620 #### [facility] [address] [place], [address] CO2 [Moles/Vol] 23.0 mmol/L Normal 21.0-32.0 [facility] Comment on above: Order Comment: 1 Y Performed By: #### L 501.5425, L500.2500, L100.0100, L503.6620 #### [facility] [address] [place], [address] Creatinine [Mass/Vol] 1.87 mg/dL High 0.70-1.30 [facility] Comment on above: Order Comment: 1 Y Result Comment: The validity of the calculated GFR GFRAA in patients over 70 years has not been determined. Clinical correlation is essential. Performed By: #### L 501.5425, L500.2500, L100.0100, L503.6620 #### [facility] [address] [place], [address] ECRCL 40.01 ml/min Normal [facility] Comment on above: Order Comment: 1 Y Performed By: #### L 501.5425, L500.2500, L100.0100, L503.6620 #### [facility] [address] [place], [address] EST GFR - AA 47 mL/min Low >60 [facility] Comment on above: Order Comment: 1 Y Result Comment: Afri can Citizen [place] GFR Calc Performed By: #### L 501.5425, L500.2500, L100.0100, L503.6620 #### [facility] [address] [place], [address] GAP 7 Normal 5-15 [facility] Comment on above: Order Comment: 1 Y Performed By: #### L 501.5425, L500.2500, L100.0100, L503.6620 #### [facility] [address] [place], [address] GFR/1.73 sq M.predicted among non-blacks MDRD (S/P/Bld) [Vol rate/Area] 39 mL/min/{1.73_m2} Low >60 [facility] Comment on above: Order Comment: 1 Y Result Comment: Non- GFR Calc Performed By: #### L 501.5425, L500.2500, L100.0100, L503.6620 #### [facility] [address] [place], [address] Glucose [Mass/Vol] 319 mg/dL High 74-106 [facility] Comment on above: Order Comment: 1 Y Result Comment: Gluc ose result greater than or equal to 200 mg/dL suggests DIABETES MELLITUS per A.D.A. criteria. Performed By: #### L 501.5425, L500.2500, L100.0100, L503.6620 #### [facility] [address] [place], [address] Potassium [Moles/Vol] 4.8 mmol/L Normal 3.5-5.1 [facility] Comment on above: Order Comment: 1 Y Performed By: #### L 501.5425, L500.2500, L100.0100, L503.6620 #### [facility] [address] [place], [address] Sodium [Moles/Vol] 135 mmol/L Low 136-145 [facility] Comment on above: Order Comment: 1 Y Performed By: #### L 501.5425, L500.2500, L100.0100, L503.6620 #### [facility] [address] [place], [address] Urea nitrogen [Mass/Vol] 23 mg/dL High 7-18 [facility] Comment on above: Order Comment: 1 Y Performed By: #### L 501.5425, L500.2500, L100.0100, L503.6620 #### [facility] [address] [place], [address] BUN/CRE 12.5 RATIO Normal 10-20 [facility] Comment on above: Performed By: #### L 100.0100, L501.4021, L500.2500 #### [facility] [address] [place], [address] CA,Total 8.2 mg/dL Low 8.5-10.1 [facility] Comment on above: Performed By: #### L 100.0100, L501.4021, L500.2500 #### [facility] [address] [place], [address] Chloride [Moles/Vol] 106 mmol/L Normal 98-107 [facility] Comment on above: Performed By: #### L 100.0100, L501.4021, L500.2500 #### [facility] [address] [place], [address] CO2 [Moles/Vol] 26.0 mmol/L Normal 21.0-32.0 [facility] Comment on above: Performed By: #### L 100.0100, L501.4021, L500.2500 #### [facility] [address] [place], [address] Creatinine [Mass/Vol] 2.00 mg/dL High 0.70-1.30 [facility] Comment on above: Result Comment: The validity of the calculated GFR GFRAA in patients over 70 years has not been determined. Clinical correlation is essential. Performed By: #### L 100.0100, L501.4021, L500.2500 #### [facility] [address] [place], [address] EST GFR - AA 43 mL/min Low >60 [facility] Comment on above: Result Comment: Afri can [place] GFR Calc Performed By: #### L 100.0100, L501.4021, L500.2500 #### [facility] [address] [place], [address] GAP 3 Low 5-15 [facility] Comment on above: Performed By: #### L 100.0100, L501.4021, L500.2500 #### [facility] [address] [place], [address] GFR/1.73 sq M.predicted among non-blacks MDRD (S/P/Bld) [Vol rate/Area] 36 mL/min/{1.73_m2} Low >60 [facility] Comment on above: Result Comment: Non- GFR Calc Performed By: #### L 100.0100, L501.4021, L500.2500 #### [facility] [address] [place], [address] Glucose [Mass/Vol] 339 mg/dL High 74-106 [facility] Comment on above: Result Comment: Gluc ose result greater than or equal to 200 mg/dL suggests DIABETES MELLITUS per A.D.A. criteria. Performed By: #### L 100.0100, L501.4021, L500.2500 #### [facility] [address] [place], [address] Potassium [Moles/Vol] 6.2 mmol/L Invalid Interpretation Code 3.5-5.1 [facility] Comment on above: Result Comment: Crit ical Result(s) Called at: 17:09:39 01/09/2024 by: MAGUI WAITE TO DR. AVENDANO. Results read back by same. Performed By: #### L 100.0100, L501.4021, L500.2500 #### [facility] [address] [place], [address] Sodium [Moles/Vol] 134 mmol/L Low 136-145 [facility] Comment on above: Performed By: #### L 100.0100, L501.4021, L500.2500 #### [facility] [address] [place], [address] Urea nitrogen [Mass/Vol] 25 mg/dL High 7-18 [facility] Comment on above: Performed By: #### L 100.0100, L501.4021, L500.2500 #### [facility] [address] [place], [address] CBC W/Diff, Automatedon 11-0 7-2023 Absolute Lymph 1.65 X10 3/uL Normal 0.83-4.51 [facility] Comment on above: Performed By: #### L 501.5425, L500.2500, L100.0100, L503.6620 #### [facility] [address] [place], [address] Absolute Neut 5.7 X10 3/uL Normal 2.0-7.7 [facility] Comment on above: Performed By: #### L 501.5425, L500.2500, L100.0100, L503.6620 #### [facility] [address] [place], [address] Basophils/100 WBC (Bld) 0.4 % Normal 0-1 [facility] Comment on above: Performed By: #### L 501.5425, L500.2500, L100.0100, L503.6620 #### [facility] [address] [place], [address] Eosinophils/100 WBC (Bld) 3.7 % Normal 0-5 [facility] Comment on above: Performed By: #### L 501.5425, L500.2500, L100.0100, L503.6620 #### [facility] [address] [place], [address] Erythrocyte distribution width (RBC) [Ratio] 14.3 % Normal 11.6-14.6 [facility] Comment on above: Performed By: #### L 501.5425, L500.2500, L100.0100, L503.6620 #### [facility] [address] [place], [address] Hematocrit (Bld) [Volume fraction] 33.3 % Low 40-54 [facility] Comment on above: Performed By: #### L 501.5425, L500.2500, L100.0100, L503.6620 #### [facility] [address] [place], [address] Hemoglobin (Bld) [Mass/Vol] 11.0 g/dL Low 13.0-16.5 [facility] Comment on above: Performed By: #### L 501.5425, L500.2500, L100.0100, L503.6620 #### [facility] [address] [place], [address] IG% 0.500 Normal 0.0-0.9 [facility] Comment on above: Result Comment: IG% - Immature Granulocytes (promyelocytes, myelocytes and metamyelocytes) > 1% indicates that a LEFT SHIFT is Present. Performed By: #### L 501.5425, L500.2500, L100.0100, L503.6620 #### [facility] [address] [place], [address] Lymphocytes/100 WBC (Bld) 19.6 % Normal 19-41 [facility] Comment on above: Performed By: #### L 501.5425, L500.2500, L100.0100, L503.6620 #### [facility] [address] [place], [address] MCH (RBC) [Entitic mass] 30.1 pg Normal 27.0-32.0 [facility] Comment on above: Performed By: #### L 501.5425, L500.2500, L100.0100, L503.6620 #### [facility] [address] [place], [address] MCHC (RBC) [Mass/Vol] 33.0 g/dL Normal 32-36 [facility] Comment on above: Performed By: #### L 501.5425, L500.2500, L100.0100, L503.6620 #### [facility] [address] [place], [address] MCV (RBC) [Entitic vol] 91.2 fL Normal 80-94 [facility] Comment on above: Performed By: #### L 501.5425, L500.2500, L100.0100, L503.6620 #### [facility] [address] [place], [address] Monocytes/100 WBC (Bld) 8.6 % Normal 0-10 [facility] Comment on above: Performed By: #### L 501.5425, L500.2500, L100.0100, L503.6620 #### [facility] [address] [place], [address] Neutrophils/100 WBC (Bld) 67.2 % Normal 47-70 [facility] Comment on above: Performed By: #### L 501.5425, L500.2500, L100.0100, L503.6620 #### [facility] [address] [place], [address] Nucleated RBC (Bld) [#/Vol] 0 10*3/uL Normal 0-5 [facility] Comment on above: Performed By: #### L 501.5425, L500.2500, L100.0100, L503.6620 #### [facility] [address] [place], [address] Platelet mean volume (Bld) [Entitic vol] 9.0 fL Normal 6.2-12.0 [facility] Comment on above: Performed By: #### L 501.5425, L500.2500, L100.0100, L503.6620 #### [facility] [address] [place], [address] Platelets (Bld) [#/Vol] 377 10*3/uL Normal 150-450 [facility] Comment on above: Performed By: #### L 501.5425, L500.2500, L100.0100, L503.6620 #### [facility] [address] [place], [address] RBC (Bld) [#/Vol] 3.65 10*6/uL Low 4.6-6.2 [facility] Comment on above: Performed By: #### L 501.5425, L500.2500, L100.0100, L503.6620 #### [facility] [address] [place], [address] RDW SD 47.7 fl High 35.1-43.9 [facility] Comment on above: Performed By: #### L 501.5425, L500.2500, L100.0100, L503.6620 #### [facility] [address] [place], [address] WBC (Bld) [#/Vol] 8.4 10*3/uL Normal 4.4-11.0 [facility] Comment on above: Performed By: #### L 501.5425, L500.2500, L100.0100, L503.6620 #### [facility] [address] [place], [address] Chest PA and Lateralon 01-08 Chest PA and Lateral [facility] Imaging Services [address] [place] [address] Chest PA and Lateral MR#: [id number] Acct: [id number] Name: OLIVIER MENDOZA Rep #: [id number] : 1960 M 63 From: Timi Chester PCP: Dr. Sherice Avendano MD Status: REG ER Study: Chest PA and Lateral Date of Exam: 01/09/24 Exam# [id number] Ordering Dr: Denzel Carlin DO [id number] INDICATION: chest pain EXAMINATION/TECHNIQ UE: X-RAY [...] Sherice Avendano MD; Dr. Denzel Carlin DO Supervising Floorperson: Signed Normal [facility] Emergency Department Summary on 01-09-2024 Emergency Department Summary [facility] Records Department [address] [place] [id number] Emergency Department Summary 01/09/24 MR#: [id number] Acct: [id number] Name: OLIVIER MENDOZA Rep #: [id number] : 1960 63 From: Denzel Carlin DO [...] has been taking his medications as prescribed. [facility] Medical History Preop cardiovascular exam CKD (chronic kidney disease), stage III GERD (gastroesophageal reflux disease) Chest congestion Preoperative evaluation to rule out surgical contraindication Sinusitis Skin cyst Fatigue Left elbow pain Health care maintenance Proteinuria Nephropathy Bilateral lower extremity edema COVID-19 vaccine series completed Atherosclerotic heart disease of [place] coronary artery without angina pectoris Mixed hyperlipidemia [...] latex Allergy Unknown Unknown Verified 01/09/24 19:27 Bcawkii-ACZ-EgY Reductase AdvReac Severe muscle pain Verified 01/09/24 19:27 Inhibitor (Oszwtjy-Mhu-Ixs Reductase Inhibitor) Family History Mother Diabetes Myocardial infarction Heart disease High cholesterol Grandmother Parkinson disease Father Prostate cancer Grandfather COPD (chronic obstructive pulm (more content not included)... Normal [facility] Internal Medicine Office Vis iton 01-09-2024 Internal Medicine Office Visit [facility] [address] [place] [address] [place] [address] OFFICE VISIT Date of Service: 01/09/24 MR#: [id number] Acct: [id number] Name: OLIVIER MENDOZA Rep #: [id number] : 1960 Provider: Dr. Sherice rock MD Age/Sex: 63/M [place] [facility] [place] Status: Signed Intake Vital Signs 10/11/23 15:10 [...] FOLLOW UP Chief Complaint: Follow-up chronic conditions Forensic Ballistics Expert Required: No Accompanied by: Self Is patient in pain?: No Allergies latex Allergy (Unknown, Verified 01/09/24 14:15) Unknown Awylcbx-HQJ-OkE Reductase Inhibitor (Sltdout-Vxe-Nby Reductase Inhibitor) Adverse Reaction (Severe, Verified 01/09/24 [...] vaccine series completed Atherosclerotic heart disease of [place] coronary artery without angina pectoris Mixed hyperlipidemia [...] Parkinson d (more content not included)... Normal [facility] L501.4020on 01-09-2024 TROPONIN-I HS 20 pg/mL Normal 3.0-78.0 [facility] Comment on above: Result Comment: Cheyenne aldana Note: New Test Units and Gender Specific Reference Ranges. For more information see Policy Stat Procedure [place] High Sensitivity Troponin (TNIH) and attachments. Performed By: #### L 100.0100, L501.4021, L500.2500 #### [facility] [address] [place], [place], [address] L501.5425on 01-09-2024 TROPONIN-I HS 20 pg/mL Normal 3.0-78.0 [facility] Comment on above: Order Comment: 1 Y Result Comment: Cheyenne aldana Note: New Test Units and Gender Specific Reference Ranges. For more information see Policy Stat Procedure [place] High Sensitivity Troponin (TNIH) and attachments. Performed By: #### L 501.5425, L500.2500, L100.0100, L503.6620 #### [facility] [address] [place], [address] Lipid Profileon 01-09-2024 HDL Normal [facility] Comment on above: Result Comment: TOO SOON TO HAVE DONE The drugs N-Acetylcysteine and Metamizole may falsely depress this assay. Performed By: #### L 100.0100, L501.4021, L500.2500 #### [facility] [address] [place], [address] TRIG Normal [facility] Comment on above: Result Comment: TOO SOON TO HAVE DONE The drugs N-Acetylcysteine and Metamizole may falsely depress this assay. Performed By: #### L 100.0100, L501.4021, L500.2500 #### [facility] [address] [place], [address] CHOL Normal 200 [facility] Comment on above: Result Comment: TOO SOON TO HAVE DONE Performed By: #### L 100.0100, L501.4021, L500.2500 #### [facility] [address] [place], [address] LDL Normal 0-130 [facility] Comment on above: Result Comment: TOO SOON TO HAVE DONE Performed By: #### L 100.0100, L501.4021, L500.2500 #### [facility] [address] [place], [address] VLDL Normal 5-40 [facility] Comment on above: Result Comment: TOO SOON TO HAVE DONE Performed By: #### L 100.0100, L501.4021, L500.2500 #### [facility] [address] [place], [address] Liver Profileon 01-09-2024 ALB Normal 3.2-5.0 [facility] Comment on above: Result Comment: TOO SOON TO HAVE DONE Performed By: #### L 100.0100, L501.4021, L500.2500 #### [facility] [address] [place], [address] ALK P Normal 45-117 [facility] Comment on above: Result Comment: TOO SOON TO HAVE DONE Performed By: #### L 100.0100, L501.4021, L500.2500 #### [facility] [address] [place], [address] ALT Normal 16-61 [facility] Comment on above: Result Comment: TOO SOON TO HAVE DONE Performed By: #### L 100.0100, L501.4021, L500.2500 #### [facility] [address] [place], [address] AST Normal 15-37 [facility] Comment on above: Result Comment: TOO SOON TO HAVE DONE Performed By: #### L 100.0100, L501.4021, L500.2500 #### [facility] [address] [place], [address] D BILI Normal 0.00-0.30 [facility] Comment on above: Result Comment: TOO SOON TO HAVE DONE Performed By: #### L 100.0100, L501.4021, L500.2500 #### [facility] [address] [place], [address] T BILI Normal 0.20-1.00 [facility] Comment on above: Result Comment: TOO SOON TO HAVE DONE Performed By: #### L 100.0100, L501.4021, L500.2500 #### [facility] [address] [place], [address] T PROT Normal 6.4-8.2 [facility] Comment on above: Result Comment: TOO SOON TO HAVE DONE Performed By: #### L 100.0100, L501.4021, L500.2500 #### [facility] [address] [place], [address] Magnesiumon 01-09-2024 Magnesium [Mass/Vol] 2.1 mg/dL Normal 1.6-2.6 [facility] Comment on above: Performed By: #### L 100.0100, L501.4021, L500.2500 #### [facility] [address] [place], [address] OPERATIVE NOon 06-25-2023 OPERATIVE NO HNO ID: [id number] Author: FABIOLA PARKER JR, DO Service: Ophthalmology Author Type: Physician Type: Operative Report Filed: 07/12/2023 10:30 Note Text: [facility] - OPERATIVE REPORT OLIVIER MENDOZA : 1960 AGE: 62. SEX: M PATIENT TYPE: A HOSP SVC: OPH LOCATION: [place] [address] ATTENDING PHYSICIAN: Fabiola Parker DO CSN NUMBER: [id number] DATE OF SURGERY/PROCEDURE: 06/12/2023 INCISION/PROCEDURE START TIME: INCISION CLOSE/PROCEDURE END TIME: PREOPERATIVE DIAGNOSIS: Relatively chronic full-thickness macular hole, right eye. POSTOPERATIVE DIAGNOSIS: Relatively chronic full-thickness macular hole, right eye. SURGEON: Fabiola Parker DO BUSINESS AFFAIRS MANAGER: SURGERY/PROCEDURE: ANESTHESIA: General. NAME OF OPERATIONS: Pars [...] was then r (more content not included)... [facility] [id number] 06-12-2023 [id number] HNO ID: [id number] Author: ADALI SULLIVAN RN Service: ? Author Type: Registered Nurse Type: [id number] Filed: 06/12/2023 13:46 Note Text: Patient positioning: [...] 06/12/23 1345 [place]CHAR[place] ([place] ONCE ther instruction. [facility] 06-12-2023 ALLIED [facility] HNO ID: [id number] Author: JESS MOORE RT(R) Service: Radiology Author [...] PATIENT PRESENTS WITH AN IMPLANTABLE OR ATTACHED BALLISTICS EXPERT FORENSIC: No RADIOLOGY DEPARTMENT: General X-ray: Exam(s) Completed: Chest X-Ray PERIPHERAL IV DATA: Not applicable SIGNED BY: RT Yasmany(R) June 12, 2023 11:47 AM [facility] ANES POSTPROC EVALon 024 ANES POSTPROC EVAL HNO ID: [id number] Author: AUDREY RIOS DO Service: Anesthesiology Author Type: Anesthesiologist Type: Anesthesia Postprocedure Evaluation Filed: 06/12/2023 12:52 Note Text: POST ANESTHESIA EVALUATION NOTE : 1960 Procedure Summary Date: 06/12/23 Room / Location: MR OR 08 / MR OR Anesthesia Start: 733 Anesthesia Stop: 1003 Procedure: VITRECTOMY 25G [facility] APPROACH W/ REMOVAL OF [...] Documentation SIGNATURE: Audrey Rios DO PATIENT NAME: lOivier Mendoza DATE: June 12, 2023 TIME: 12:52 PM CSN: [id number] [facility] ANES PRE-OPon 06-12-2023 ANES PRE-OP HNO ID: [id number] Author: BLANCA, AUDREY, DO Service: Anesthesiology Author Type: Anesthesiologist Type: Anesthesia Preprocedure Evaluation Filed: 06/12/2023 06:54 Note Text: ANESTHESIOLOGY DAY OF SURGERY NOTE : 1960 Procedure Information Date/Time: 06/12/23729 Procedure: VITRECTOMY 25G [facility] APPROACH W/ REMOVAL OF [...] June 12, 2023 TIME: 6:54 AM CSN: [id number] [facility] BRIEF OP NOTon 06-12-2023 BRIEF OP NOT HNO ID: [id number] Author: FABIOLA PARKER JR, DO Service: Ophthalmology Author Type: Physician Type: Brief Op Note Filed: 06/12/2023 10:10 Note Text: BRIEF OPERATIVE / PROCEDURE NOTE LOG ID: [id number] SURGERY/PROCEDURE DATE: 06/12/2023 INCISION/PROCEDURE START TIME: 8:14 AM INCISION CLOSE/PROCEDURE END TIME: 9:47 AM SURGEON(S)/PROCEDUR ALIST(S) AND BUSINESS AFFAIRS MANAGER(S): Surgeon(s) and Role: * Fabiola Parker Jr., DO - Primary Route Salesman And Driver: Mariama Sandoval SA SURGERY/PROCEDURE(S ): Procedure(s) (LRB): VITRECTOMY 25G [facility] APPROACH W/ REMOVAL OF INTERNAL LIMITING RETINA MEMBRANE (Right) MEMBRANECTOMY AND GAS FLUID EXCHANGE RIGHT EYE ANESTHESIA: General FINDINGS: See above SPECIMENS: * No specimens in log * COMPLICATIONS: None IMPLANTS: None PRE-OP/PRE-PROCEDUR E DIAGNOSIS: Macular hole, right eye [H35.341] POST-OP/POST-PROCED URE DIAGNOSIS: Same as Pre-op diagnosis SIGNATURE: Fabiola Pakrer DO PATIENT NAME: Olivier Mendoza DATE: June 12, 2023 TIME: 10:10 AM [facility] HISTORY PHYSICALon HISTORY PHYSICAL HNO ID: [id number] Author: FABIOLA PARKER JR, DO Service: Ophthalmology [...] DATE: June 12, 2023 TIME: 7:24 AM [facility] NURSING PROGon 06-12-2023 NURSING PROG HNO ID: [id number] Author: CATHY PATTEN RN Service: Nursing Author Type: Registered Nurse Type: Nursing Progress Note Filed: 06/12/2023 13:33 Note Text: Dr. Parker contacted regarding discharge instructions clarification. New discharge orders received. [facility] NURSING PROG HNO ID: [id number] Author: OLGA MILLER RN Service: Nursing Author Type: Registered Nurse Type: Nursing Progress Note Filed: 06/12/2023 11:30 Note Text: Dr Rios notified of pts resp status again, new order received for PCXR. Will continue to monitor. [facility] XR CHEST 1V FRONTAL PORTon 0 [...] Decreased lung volumes with left perihilar atelectasis. Supervising Floorperson: PSCB Transcribe Date/Time: Jun 12 2023 12:49P Dictated by : QUENTIN CAMARGO MD This examination was interpreted and the report reviewed and electronically signed by: QUENTIN CAMARGO MD on Jun 12 2023 12:50PM EST [id number] [facility] ANES PREOPon 06-11-2023 ANES PREOP HNO ID: [id number] Author: DILLON PRUETT PA-C Service: ? Author Type: Physician Partner Type: Anesthesia PreOp Filed: 06/11/2023 08:48 Note Text: 62 yo male ex-smoker PMH: CKD3, CAD (no PCI - [facility]), carotid artery stenosis, HTN, HLD, DM on insulin, hypothyroid, Meniere's, [place] intolerant of CPAP, BPH on tadalafil, GERD Medical clearance from [facility]ana scanned in [facility] under HANDP noting he is medically optimized for surgery but requires cardiology evaluation prior to surgery. (Page 6) Cardiac clearance by German GARCIA scanned under HANDP in [facility] (page 13) Most recent echo in 2019 showed EF of 60%. If needed, he should hold aspirin 7 days prior.) EKG 06/06/23 SR rate 79, Tracing page 14 From HANDP [facility] 05/09/20 diffuse CAD with small vessels noted in the entire coronary vasculature [facility] Absolute lymphocyte countOrd ered By: Sherice Avendano on 05-22-2023 Lymphocytes Auto (Unsp spec) [#/Vol] 1.24 10*3/uL 0.83-4.51 [facility] Automated lymphocyte count a s percentage of total leukocytesOrdered By: Sherice Avendano on 05-22-2023 Lymphocytes/100 WBC Auto (Unsp spec) 16.6 % 19-41 [facility] Basophil percentageOrdered B y: Sherice Avendano on 05-22-2023 Basophils/100 WBC (Bld) 0.3 % 0-1 [facility] Bilirubin [Mass/Vol] 0.40 mg/dL 0.20-1.00 [facility] Comment on above: For patients on eltr ombopag therapy, use of Dimension [place] TBIL is not recommended. Chloride [Moles/Vol] 102 mmol/L 98-107 [facility] Eosinophils/100 WBC (Bld) 3.6 % 0-5 [facility] Glucose [Mass/Vol] 239 mg/dL 74-106 [facility] Comment on above: Glucose result great er than or equal to 200 mg/dLsuggests DIABETES MELLITUS per A.D.A. criteria. Hemoglobin (Bld) [Mass/Vol] 11.9 g/dL 13.0-16.5 [facility] Monocytes/100 WBC (Bld) 6.4 % 0-10 [facility] Neutrophils (Bld) [#/Vol] 5.4 10*3/uL 2.0-7.7 [facility] Neutrophils/100 WBC (Bld) 72.7 % 47-70 [facility] Potassium [Moles/Vol] 5.4 mmol/L 3.5-5.1 [facility] Protein [Mass/Vol] 6.7 g/dL 6.4-8.2 [facility] Sodium [Moles/Vol] 135 mmol/L 136-145 [facility] WBC (Bld) [#/Vol] 7.5 10*3/uL 4.4-11.0 [facility] Determination of erythrocyte mean corpuscular volume (MCV)Ordered By: Sherice Avendano on 05-22-2023 MCV (RBC) [Entitic vol] 91.2 fL 80-94 [facility] Erythrocyte distribution wid th ratioOrdered By: [facility] on 05-22-2023 Erythrocyte distribution width (RBC) [Ratio] 14.1 % 11.6-14.6 [facility] Erythrocyte distribution wid th standard deviationOrdered By: Luis Ahustlekarla Avendano on 05-22-2023 Erythrocyte distribution width (RBC) [Entitic vol] 47.2 fL 35.1-43.9 [facility] Hematocrit Auto (Bld) [Volum e fraction]Ordered By: Sherice Avendano on 05-22-2023 Hematocrit (Bld) [Volume fraction] 37.5 % 40-54 [facility] Immature granulocytes/100 WB C Auto (Bld)Ordered By: Sherice Avendano on 05-22-2023 Immature granulocytes/100 WBC (Bld) 0.400 % 0.0-0.9 [facility] Comment on above: IG% - Immature Granu locytes (promyelocytes, myelocytes and metamyelocytes) > 1% indicates that a LEFT SHIFT is Present. Laboratory - Chemistry and C hemistry - challengeOrdered By: Sherice Avendano on 05-22-2023 Albumin/Globulin [Mass ratio] 0.7 {ratio} 0.9-2.4 [facility] ALP [Catalytic activity/Vol] 129 U/L 45-117 [facility] ALT [Catalytic activity/Vol] 26 U/L 16-61 [facility] CO2 [Moles/Vol] 27.0 mmol/L 21.0-32.0 [facility] Globulin (S) [Mass/Vol] 3.9 g/dL 2.2-4.2 [facility] Urea nitrogen/Creatinine [Mass ratio] 15.2 mg/mg 10-20 [facility] - Hematology and Cell countsOrdered By: Sherice Avendano on 05-22-2023 MCH (RBC) [Entitic mass] 29.0 pg 27.0-32.0 [facility] MCHC (RBC) [Mass/Vol] 31.7 g/dL 32-36 [facility] Nucleated RBC/100 WBC (Bld) [Ratio] 0 % 0-5 [facility] Platelet mean volume (Bld) [Entitic vol] 9.2 fL 6.2-12.0 [facility] Platelets (Bld) [#/Vol] 400 10*3/uL 150-450 [facility] No Panel InformationOrdered By: Sherice Avendano on 05-22-2023 Estimated GFR (MDRD) Amer 50 mL/min >60 [facility] Comment on above: GFR Calc Estimated GFR (MDRD) Non-Af Amer 41 mL/min >60 [facility] Comment on above: Non- GFR Calc RBC Auto (Bld) [#/Vol]Ordere d By: Sherice Avendano on 05-22-2023 RBC (Bld) [#/Vol] 4.11 10*6/uL 4.6-6.2 [facility] Serum or plasma calcium tiera urement (mass/volume)Ordered By: Sherice Avendano on 05-22-2023 Calcium [Mass/Vol] 9.1 mg/dL 8.5-10.1 [facility] Serum or plasma creatinine m easurement (mass/volume)Ordered By: Sherice Avendano on 05-22-2023 Creatinine [Mass/Vol] 1.78 mg/dL 0.70-1.30 [facility] Comment on above: The validity of the calculated GFR & GFRAA in patients over 70 years has not been determined. Clinical correlation is essential. Serum or plasma thyroid stim ulating hormone (TSH) measurement (units/volume)Ordered By: [facility] Iversoneros on 05-22-2023 TSH Qn 3.99 uIU/mL 0.358-3.74 [facility] Serum or plasma urea nitroge n measurement (mass/volume)Ordered By: [facility] Iversoneros on 05-22-2023 Urea nitrogen [Mass/Vol] 27 mg/dL 7-18 [facility] Thin prep Papanicolaou smear with manual screeningOrdered By: [facility] Iversoneros on 05-22-2023 Thin prep Papanicolaou smear with manual screening 2.8 g/dL 3.2-5.0 [facility] Thin prep Papanicolaou smear with manual screening 18 U/L 15-37 [facility] Thin prep Papanicolaou smear with manual screening 6 5-15 [facility] - Microbiology an d Antimicrobial susceptibilityOrdered By: Yan Quintanilla on 04-24-2023 SARS-CoV-2 (COVID-19) RNA LUIGI+probe Ql (Unsp spec) [facility] CNCOon 04-15-2023 CNCO Letter Text Normal [facility] Absolute lymphocyte countOrd ered By: Sherice Avendano on 04-01-2023 Lymphocytes Auto (Unsp spec) [#/Vol] 1.39 10*3/uL 0.83-4.51 [facility] Automated lymphocyte count a s percentage of total leukocytesOrdered By: Sherice Avendano on 04-01-2023 Lymphocytes/100 WBC Auto (Unsp spec) 20.3 % 19-41 [facility] Basophil percentageOrdered B y: RIYA LAUREN on 04-01-2023 Bilirubin [Mass/Vol] 0.30 mg/dL 0.20-1.00 [facility] Comment on above: For patients on eltr ombopag therapy, use of Dimension [place] TBIL is not recommended. Chloride [Moles/Vol] 100 mmol/L 98-107 [facility] Cholesterol [Mass/Vol] 317 mg/dL <200 [facility] Comment on above: <200 mg/dL Desirable 200-240 mg/dL Borderline >240 mg/dL High Risk Glucose [Mass/Vol] 194 mg/dL 74-106 [facility] Comment on above: Fasting Glucose resu lt greater than or equal to 126 mg/dL suggests DIABETES MELLITUS per A.D.A. criteria. Potassium [Moles/Vol] 4.8 mmol/L 3.5-5.1 [facility] Protein [Mass/Vol] 7.2 g/dL 6.4-8.2 [facility] Sodium [Moles/Vol] 131 mmol/L 136-145 [facility] Triglyceride [Mass/Vol] 148 mg/dL <199 [facility] Comment on above: The drugs N-Acetylcy steine and Metamizole may falsely depress this assay.Serum Triglycerides Reference Interval Normal <150 mg/dL Borderline high 150 - 199 mg/dL High 200 - 499 mg/dL Very High > or = 500 mg/dL Basophil percentageOrdered B y: Sherice Avendano on 04-01-2023 Basophils/100 WBC (Bld) 0.6 % 0-1 [facility] Eosinophils/100 WBC (Bld) 3.7 % 0-5 [facility] Hemoglobin (Bld) [Mass/Vol] 12.5 g/dL 13.0-16.5 [facility] Monocytes/100 WBC (Bld) 7.3 % 0-10 [facility] Neutrophils (Bld) [#/Vol] 4.6 10*3/uL 2.0-7.7 [facility] Neutrophils/100 WBC (Bld) 67.8 % 47-70 [facility] Testosterone [Mass/Vol] 601 ng/dL 264-916 [facility] Comment on above: Adult male reference interval is based on a population ofhealthy nonobese males (BMI <30) between 19 and 39 yearsold. soraida Richards.al. JCEM 2017,102;6983-3659. PMID:[id number]. WBC (Bld) [#/Vol] 6.8 10*3/uL 4.4-11.0 [facility] Determination of erythrocyte mean corpuscular volume (MCV)Ordered By: Sherice Avendano on 04-01-2023 MCV (RBC) [Entitic vol] 91.2 fL 80-94 [facility] Erythrocyte distribution wid th ratioOrdered By: [facility] Iversoneros on 04-01-2023 Erythrocyte distribution width (RBC) [Ratio] 13.4 % 11.6-14.6 [facility] Erythrocyte distribution wid th standard deviationOrdered By: [facility] Iversonreos on 04-01-2023 Erythrocyte distribution width (RBC) [Entitic vol] 45.2 fL 35.1-43.9 [facility] Free testosterone percentage Ordered By: amarilishustlekarla Avendano on 04-01-2023 Testosterone Free/Testosterone.total [Mass fraction] 2.20 % 1.50-4.20 [facility] Comment on above: Performed at: [employer] [employer] [address] [id number] Director: Aaron Lay PhD, Phone: [phone] at: [facility] [employer] [id number] Director: Eddi Ryan MD, Phone: [phone] Hematocrit Auto (Bld) [Volum e fraction]Ordered By: Sherice Avendano on 04-01-2023 Hematocrit (Bld) [Volume fraction] 39.6 % 40-54 [facility] High density lipoprotein (HD L) measurementOrdered By: RIYA LAUREN on 04-01-2023 Cholesterol in HDL (Body fld) [Mass/Vol] 68 mg/dL >40 [facility] Comment on above: The drugs N-Acetylcy steine and Metamizole may falsely depress this assay. Reference Range HDL <40 mg/dL Low HDL Cholesterol HDL >or= 60 mg/dL High HDL Cholesterol Immature granulocytes/100 WB C Auto (Bld)Ordered By: Sherice Avendano on 04-01-2023 Immature granulocytes/100 WBC (Bld) 0.300 % 0.0-0.9 [facility] Comment on above: IG% - Immature Granu locytes (promyelocytes, myelocytes and metamyelocytes) > 1% indicates that a LEFT SHIFT is Present. Laboratory - Chemistry and C hemistry - challengeOrdered By: RIYA LAUREN on 04-01-2023 Albumin/Globulin [Mass ratio] 0.8 {ratio} 0.9-2.4 [facility] ALP [Catalytic activity/Vol] 119 U/L 45-117 [facility] ALT [Catalytic activity/Vol] 24 U/L 16-61 [facility] CO2 [Moles/Vol] 27.0 mmol/L 21.0-32.0 [facility] Globulin (S) [Mass/Vol] 4.1 g/dL 2.2-4.2 [facility] Urea nitrogen/Creatinine [Mass ratio] 15.2 mg/mg 10-20 [facility] Laboratory - Hematology and Cell countsOrdered By: Sherice Avendano on 04-01-2023 MCH (RBC) [Entitic mass] 28.8 pg 27.0-32.0 [facility] MCHC (RBC) [Mass/Vol] 31.6 g/dL 32-36 [facility] Nucleated RBC/100 WBC (Bld) [Ratio] 0 % 0-5 [facility] Platelets (Bld) [#/Vol] 414 10*3/uL 150-450 [facility] Low density lipoprotein (LDL ) cholesterol measurementOrdered By: RIYA LAUREN on 04-01-2023 Cholesterol in LDL (Body fld) [Moles/Vol] 219 mg/dL 0-130 [facility] No Panel InformationOrdered By: RIYA LAUREN on 04-01-2023 Estimated GFR (MDRD) Amer 48 mL/min >60 [facility] Comment on above: GFR Calc Estimated GFR (MDRD) Non-Af Amer 40 mL/min >60 [facility] Comment on above: Non- GFR Calc Platelet mean volume Albert-Ec ker (Bld) [Entitic vol]Ordered By: Sherice Avendano on 04-01-2023 Platelet mean volume (Bld) [Entitic vol] 9.4 fL 6.2-12.0 [facility] RBC Auto (Bld) [#/Vol]Ordere d By: Sherice Avendano on 04-01-2023 RBC (Bld) [#/Vol] 4.34 10*6/uL 4.6-6.2 [facility] Serum or plasma calcium tiera urement (mass/volume)Ordered By: RIYA LAUREN on 04-01-2023 Calcium [Mass/Vol] 8.6 mg/dL 8.5-10.1 [facility] Serum or plasma creatinine m easurement (mass/volume)Ordered By: RIYA LAUREN on 04-01-2023 Creatinine [Mass/Vol] 1.84 mg/dL 0.70-1.30 [facility] Comment on above: The validity of the calculated GFR & GFRAA in patients over 70 years has not been determined. Clinical correlation is essential. Serum or plasma testosterone free measurement (mass/volume)Ordered By: Sherice Avendano on 04-01-2023 Testosterone Free [Mass/Vol] 13.22 ng/dL 5.00-21.00 [facility] Serum or plasma thyroid stim ulating hormone (TSH) measurement (units/volume)Ordered By: RIYA LAUREN on 04-01-2023 TSH Qn 3.09 uIU/mL 0.358-3.74 [facility] Serum or plasma urea nitroge n measurement (mass/volume)Ordered By: RIYA LAUREN on 04-01-2023 Urea nitrogen [Mass/Vol] 28 mg/dL 7-18 [facility] Thin prep Papanicolaou smear with manual screeningOrdered By: RYIA LAUREN on 04-01-2023 Thin prep Papanicolaou smear with manual screening 3.1 g/dL 3.2-5.0 [facility] Thin prep Papanicolaou smear with manual screening 18 U/L 15-37 [facility] Thin prep Papanicolaou smear with manual screening 4 5-15 [facility] Very low density lipoprotein (VLDL) cholesterol measurementOrdered By: RIYA LAUREN on 04-01-2023 Cholesterol in VLDL Calc [Moles/Vol] 30 mg/dL 5-40 [facility] Whole blood hemoglobin A1c/t otal hemoglobin ratio (mass fraction)Ordered By: RIYA LAUREN on 04-01-2023 HbA1c (Bld) [Mass fraction] 8.7 % 3.8-5.6 [facility] Comment on above: Normal < 5.7 % Predi abetic 5.7 - 6.4 % Diabetic >or= 6.5 % Please note range changes. Basophil percentageOrdered B y: Edna Tilley on 11-27-2022 Bilirubin [Mass/Vol] 0.30 mg/dL 0.20-1.00 [facility] Comment on above: For patients on eltr ombopag therapy, use of Dimension [place] TBIL is not recommended. Chloride [Moles/Vol] 105 mmol/L 98-107 [facility] Glucose [Mass/Vol] 163 mg/dL 74-106 [facility] Comment on above: Fasting Glucose resu lt greater than or equal to 126 mg/dL suggests DIABETES MELLITUS per A.D.A. criteria. Potassium [Moles/Vol] 4.9 mmol/L 3.5-5.1 [facility] Protein [Mass/Vol] 6.6 g/dL 6.4-8.2 [facility] Sodium [Moles/Vol] 134 mmol/L 136-145 [facility] Laboratory - Chemistry and C hemistry - challengeOrdered By: Edna Tilley on 11-27-2022 ALP [Catalytic activity/Vol] 131 U/L 45-117 [facility] ALT [Catalytic activity/Vol] 23 U/L 16-61 [facility] CO2 [Moles/Vol] 24.0 mmol/L 21.0-32.0 [facility] Globulin (S) [Mass/Vol] 3.8 g/dL 2.2-4.2 [facility] Urea nitrogen/Creatinine [Mass ratio] 15.7 mg/mg 10-20 [facility] No Panel InformationOrdered By: Edna Tilley on 11-27-2022 Estimated GFR (MDRD) Amer 57 mL/min >60 [facility] Comment on above: GFR Calc Estimated GFR (MDRD) Non-Af Amer 47 mL/min >60 [facility] Comment on above: Non- GFR Calc Serum or plasma albumin tiera urement (mass/volume)Ordered By: Edna Tilley on 11-27-2022 Albumin [Mass/Vol] 2.8 g/dL 3.2-5.0 [facility] Serum or plasma albumin/glob ulin mass ratioOrdered By: Edna Tilley on 11-27-2022 Albumin/Globulin [Mass ratio] 0.7 {ratio} 0.9-2.4 [facility] Serum or plasma calcium tiera urement (mass/volume)Ordered By: Edna Tilley on 11-27-2022 Calcium [Mass/Vol] 8.1 mg/dL 8.5-10.1 [facility] Serum or plasma creatinine m easurement (mass/volume)Ordered By: Edna Tilley on 11-27-2022 Creatinine [Mass/Vol] 1.59 mg/dL 0.70-1.30 [facility] Comment on above: The validity of the calculated GFR & GFRAA in patients over 70 years has not been determined. Clinical correlation is essential. Serum or plasma urea nitroge n measurement (mass/volume)Ordered By: Edna Tilley on 11-27-2022 Urea nitrogen [Mass/Vol] 25 mg/dL 7-18 [facility] Thin prep Papanicolaou smear with manual screeningOrdered By: Edna Tilley on 11-27-2022 Thin prep Papanicolaou smear with manual screening 15 U/L 15-37 [facility] Thin prep Papanicolaou smear with manual screening 5 5-15 [facility] Urine creatinine measurement (mass/volume)Ordered By: Edna Tilley on 11-27-2022 Creatinine (U) [Mass/Vol] 63.30 mg/dL NO RANGE EST. [facility] Urine protein measurement (m ass/volume)Ordered By: Edna Tilley on 11-27-2022 Protein (U) [Mass/Vol] 138.4 mg/dL 0.0-11.8 [facility] Urine protein/creatinine mas s ratioOrdered By: Edna Tilley on 11-27-2022 Protein/Creatinine (U) [Mass ratio] 2186 mg/g CRE 0-200 [facility] Whole blood hemoglobin A1c/t otal hemoglobin ratio (mass fraction)Ordered By: Edna Tilley on 11-27-2022 HbA1c (Bld) [Mass fraction] 9.0 % 3.8-5.6 [facility] Comment on above: Normal < 5.7 % Predi abetic 5.7 - 6.4 % Diabetic >or= 6.5 % Please note range changes. Basophil percentageOrdered B y: Sherice Joeeros on 09-28-2022 Bilirubin [Mass/Vol] 0.40 mg/dL 0.20-1.00 [facility] Comment on above: For patients on eltr ombopag therapy, use of Dimension [place] TBIL is not recommended. Chloride [Moles/Vol] 103 mmol/L 98-107 [facility] Glucose [Mass/Vol] 263 mg/dL 74-106 [facility] Comment on above: Glucose result great er than or equal to 200 mg/dLsuggests DIABETES MELLITUS per A.D.A. criteria. Potassium [Moles/Vol] 4.7 mmol/L 3.5-5.1 [facility] Protein [Mass/Vol] 7.0 g/dL 6.4-8.2 [facility] Sodium [Moles/Vol] 135 mmol/L 136-145 [facility] Laboratory - Chemistry and C hemistry - challengeOrdered By: Sherice Avendano on 09-28-2022 ALP [Catalytic activity/Vol] 164 U/L 45-117 [facility] ALT [Catalytic activity/Vol] 26 U/L 16-61 [facility] CO2 [Moles/Vol] 30.0 mmol/L 21.0-32.0 [facility] Globulin (S) [Mass/Vol] 4.1 g/dL 2.2-4.2 [facility] Urea nitrogen/Creatinine [Mass ratio] 16.0 mg/mg 10-20 [facility] No Panel InformationOrdered By: Sherice Avendano on 09-28-2022 Estimated GFR (MDRD) Amer 53 mL/min >60 [facility] Comment on above: GFR Calc Estimated GFR (MDRD) Non-Af Amer 44 mL/min >60 [facility] Comment on above: Non- GFR Calc Vitamin D 25-Hydroxy 43.9 ng/mL [facility] Comment on above: Vitamin D 25(OH) Sta tus Range Deficiency <20 ng/mL (50nmol/L) Insufficiency 20 - 30 ng/mL (50 - 75 nmol/L) Sufficiency 30 - 100 ng/mL (75 - 250 nmol/L) Toxicity >100 ng/mL (>250 nmol/L) Serum or plasma albumin tiera urement (mass/volume)Ordered By: Sherice Avendano on 09-28-2022 Albumin [Mass/Vol] 2.9 g/dL 3.2-5.0 [facility] Serum or plasma albumin/glob ulin mass ratioOrdered By: Sherice Avendano on 09-28-2022 Albumin/Globulin [Mass ratio] 0.7 {ratio} 0.9-2.4 [facility] Serum or plasma calcium tiera urement (mass/volume)Ordered By: Sherice Avendano on 09-28-2022 Calcium [Mass/Vol] 8.6 mg/dL 8.5-10.1 [facility] Serum or plasma creatinine m easurement (mass/volume)Ordered By: Sherice Avendano on 09-28-2022 Creatinine [Mass/Vol] 1.69 mg/dL 0.70-1.30 [facility] Comment on above: The validity of the calculated GFR & GFRAA in patients over 70 years has not been determined. Clinical correlation is essential. Serum or plasma urea nitroge n measurement (mass/volume)Ordered By: Sherice Avendano on 09-28-2022 Urea nitrogen [Mass/Vol] 27 mg/dL 7-18 [facility] Thin prep Papanicolaou smear with manual screeningOrdered By: Sherice Avendano on 09-28-2022 Thin prep Papanicolaou smear with manual screening 12 U/L 15-37 [facility] Thin prep Papanicolaou smear with manual screening 2 5-15 [facility] Whole blood hemoglobin A1c/t otal hemoglobin ratio (mass fraction)Ordered By: Enrrique Vaughn on 09-28-2022 HbA1c (Bld) [Mass fraction] 9.6 % 3.8-5.6 [facility] Comment on above: Normal < 5.7 % Predi abetic 5.7 - 6.4 % Diabetic >or= 6.5 % Please note range changes. Laboratory - Hematology and Cell countson 08-15-2022 HbA1c (Bld) [Mass fraction] 9.6 % 4.2-6.3 [facility] Basophil percentageOrdered B y: Dr. Vaughn on 05-01-2022 Basophil percentage 3.7 mg/dL 2.5-4.9 [facility] Bilirubin [Mass/Vol] 0.40 mg/dL 0.20-1.00 [facility] Comment on above: For patients on eltr ombopag therapy, use of Dimension [place] TBIL is not recommended. Chloride [Moles/Vol] 102 mmol/L 98-107 [facility] Glucose [Mass/Vol] 223 mg/dL 74-106 [facility] Comment on above: Glucose result great er than or equal to 200 mg/dLsuggests DIABETES MELLITUS per A.D.A. criteria. Potassium [Moles/Vol] 4.3 mmol/L 3.5-5.1 [facility] Protein [Mass/Vol] 6.5 g/dL 6.4-8.2 [facility] Sodium [Moles/Vol] 137 mmol/L 136-145 [facility] WBC (Bld) [#/Vol] 6.9 10*3/uL 4.4-11.0 [facility] Blood erythrocytes count (nu mber/volume)Ordered By: Dr. Vaughn on 05-01-2022 RBC (Bld) [#/Vol] 4.15 10*6/uL 4.6-6.2 [facility] Blood hemoglobin measurement (mass/volume)Ordered By: Dr. Vaughn on 05-01-2022 Hemoglobin (Bld) [Mass/Vol] 12.3 g/dL 13.0-16.5 [facility] Blood platelet mean volumeOr dered By: Dr. Vaughn on 05-01-2022 Platelet mean volume (Bld) [Entitic vol] 9.7 fL 6.2-12.0 [facility] Determination of erythrocyte mean corpuscular volume (MCV)Ordered By: Dr. Vaughn on 05-01-2022 MCV (RBC) [Entitic vol] 91.6 fL 80-94 [facility] Hematocrit Auto (Bld) [Volum e fraction]Ordered By: Dr. Vaughn on 05-01-2022 Hematocrit (Bld) [Volume fraction] 38.0 % 40-54 [facility] Laboratory - Chemistry and C hemistry - challengeOrdered By: Dr. Vaughn on 05-01-2022 ALP [Catalytic activity/Vol] 127 U/L 45-117 [facility] ALT [Catalytic activity/Vol] 22 U/L 16-61 [facility] CO2 [Moles/Vol] 28.0 mmol/L 21.0-32.0 [facility] Globulin (S) [Mass/Vol] 3.7 g/dL 2.2-4.2 [facility] Urea nitrogen/Creatinine [Mass ratio] 14.6 mg/mg 10-20 [facility] Laboratory - Hematology and Cell countsOrdered By: Dr. Vaughn on 05-01-2022 Erythrocyte distribution width (RBC) [Entitic vol] 46.5 fL 35.1-43.9 [facility] Erythrocyte distribution width (RBC) [Ratio] 13.7 % 11.6-14.6 [facility] MCH (RBC) [Entitic mass] 29.6 pg 27.0-32.0 [facility] MCHC Auto (RBC) [Mass/Vol]Or dered By: Dr. Vaughn on 05-01-2022 MCHC (RBC) [Mass/Vol] 32.4 g/dL 32-36 [facility] No Panel InformationOrdered By: Dr. Hale on 05-01-2022 Prostate Specific Antigen Screen 0.30 ng/mL 0.00-4.00 [facility] Comment on above: This test was perfor med using the TPSA assay method [facility] the[facility]. Values obtained with differentassay methods cannot be used interchangably.When changing PSA assays in the course of monitoring apatient, additional sequential testing should be carriedout to confirm baseline values. No Panel InformationOrdered By: Dr. Vaughn on 05-01-2022 Estimated GFR (MDRD) Amer 57 mL/min >60 [facility] Comment on above: GFR Calc Estimated GFR (MDRD) Non-Af Amer 47 mL/min >60 [facility] Comment on above: Non- GFR Calc Parathyroid Hormone (Intact) 55.5 pg/mL 18.4-80.1 [facility] Thyroid Stimulating Hormone (TSH) 3.30 uIU/mL 0.358-3.74 [facility] Platelets bldOrdered By: Dr. Vaughn on 05-01-2022 Platelets (Bld) [#/Vol] 357 10*3/uL 150-450 [facility] Serum or plasma albumin tiera urement (mass/volume)Ordered By: Dr. Vaughn on 05-01-2022 Albumin [Mass/Vol] 2.8 g/dL 3.2-5.0 [facility] Serum or plasma albumin/glob ulin mass ratioOrdered By: Dr. Vaughn on 05-01-2022 Albumin/Globulin [Mass ratio] 0.8 {ratio} 0.9-2.4 [facility] Serum or plasma calcium tiera urement (mass/volume)Ordered By: Dr. Vaughn on 05-01-2022 Calcium [Mass/Vol] 8.4 mg/dL 8.5-10.1 [facility] Serum or plasma creatinine m easurement (mass/volume)Ordered By: Dr. Vaughn on 05-01-2022 Creatinine [Mass/Vol] 1.58 mg/dL 0.70-1.30 [facility] Comment on above: The validity of the calculated GFR & GFRAA in patients over 70 years has not been determined. Clinical correlation is essential. Serum or plasma urea nitroge n measurement (mass/volume)Ordered By: Dr. Vaughn on 05-01-2022 Urea nitrogen [Mass/Vol] 23 mg/dL 7-18 [facility] Thin prep Papanicolaou smear with manual screeningOrdered By: Dr. Vaughn on 05-01-2022 Thin prep Papanicolaou smear with manual screening 15 U/L 15-37 [facility] Thin prep Papanicolaou smear with manual screening 7 5-15 [facility] Urine creatinine measurement (mass/volume)Ordered By: Dr. Vaughn on 05-01-2022 Creatinine (U) [Mass/Vol] 74.60 mg/dL NO RANGE EST. [facility] Urine protein measurement (m ass/volume)Ordered By: Dr. Vaughn on 05-01-2022 Protein (U) [Mass/Vol] 230.3 mg/dL 0.0-11.8 [facility] Urine protein/creatinine mas s ratioOrdered By: Dr. Vaughn on 05-01-2022 Protein/Creatinine (U) [Mass ratio] 3087 mg/g CRE 0-200 [facility] Whole blood hemoglobin A1c/t otal hemoglobin ratio (mass fraction)Ordered By: Dr. Vaughn on 05-01-2022 HbA1c (Bld) [Mass fraction] 8.2 % 3.8-5.6 [facility] Comment on above: Normal < 5.7 % Predi abetic 5.7 - 6.4 % Diabetic >or= 6.5 % Please note range changes. Absolute lymphocyte countOrd ered By: Gennaro Fuentes on 01-26-2022 Lymphocytes Auto (Unsp spec) [#/Vol] 1.26 10*3/uL 0.83-4.51 [facility] Basophil percentageOrdered B y: Gennaro Fuentes on 01-26-2022 Basophil percentage 3.7 mg/dL 2.5-4.9 [facility] Basophils/100 WBC (Bld) 0.5 % 0-1 [facility] Chloride [Moles/Vol] 103 mmol/L 98-107 [facility] Eosinophils/100 WBC (Bld) 2.8 % 0-5 [facility] Glucose [Mass/Vol] 235 mg/dL 74-106 [facility] Comment on above: Glucose result great er than or equal to 200 mg/dLsuggests DIABETES MELLITUS per A.D.A. criteria. Neutrophils (Bld) [#/Vol] 5.6 10*3/uL 2.0-7.7 [facility] Neutrophils/100 WBC (Bld) 72.0 % 47-70 [facility] Potassium [Moles/Vol] 5.2 mmol/L 3.5-5.1 [facility] Sodium [Moles/Vol] 136 mmol/L 136-145 [facility] WBC (Bld) [#/Vol] 7.8 10*3/uL 4.4-11.0 [facility] Blood erythrocytes count (nu mber/volume)Ordered By: Gennaro Fuentes on 01-26-2022 RBC (Bld) [#/Vol] 4.13 10*6/uL 4.6-6.2 [facility] Blood hemoglobin measurement (mass/volume)Ordered By: Gennaro Fuentes on 01-26-2022 Hemoglobin (Bld) [Mass/Vol] 12.7 g/dL 13.0-16.5 [facility] Blood lymphocytes/100 leukoc ytesOrdered By: Gennaro Fuentes on 01-26-2022 Lymphocytes/100 WBC (Bld) 16.2 % 19-41 [facility] Blood monocytes/100 leukocyt esOrdered By: Gennaro Fuentes on 01-26-2022 Monocytes/100 WBC (Bld) 8.2 % 0-10 [facility] Blood platelet mean volumeOr dered By: Gennaro Fuentes on 01-26-2022 Platelet mean volume (Bld) [Entitic vol] 9.1 fL 6.2-12.0 [facility] Determination of erythrocyte mean corpuscular volume (MCV)Ordered By: Gennaro Fuentes on 01-26-2022 MCV (RBC) [Entitic vol] 91.8 fL 80-94 [facility] Hematocrit Auto (Bld) [Volum e fraction]Ordered By: Gennaro Fuentes on 01-26-2022 Hematocrit (Bld) [Volume fraction] 37.9 % 40-54 [facility] Laboratory - Chemistry and C hemistry - challengeOrdered By: Gennaro Fuentes on 01-26-2022 CO2 [Moles/Vol] 26.0 mmol/L 21.0-32.0 [facility] Urea nitrogen/Creatinine [Mass ratio] 15.1 mg/mg 10-20 [facility] Laboratory - Hematology and Cell countsOrdered By: Gennaro Fuentes on 01-26-2022 Erythrocyte distribution width (RBC) [Entitic vol] 45.7 fL 35.1-43.9 [facility] Erythrocyte distribution width (RBC) [Ratio] 13.5 % 11.6-14.6 [facility] Immature granulocytes/100 WBC (Bld) 0.300 % 0.0-0.9 [facility] Comment on above: IG% - Immature Granu locytes (promyelocytes, myelocytes and metamyelocytes) > 1% indicates that a LEFT SHIFT is Present. MCH (RBC) [Entitic mass] 30.8 pg 27.0-32.0 [facility] Nucleated RBC/100 WBC (Bld) [Ratio] 0 % 0-5 [facility] MCHC Auto (RBC) [Mass/Vol]Or dered By: Gennaro Fuentes on 01-26-2022 MCHC (RBC) [Mass/Vol] 33.5 g/dL 32-36 [facility] No Panel InformationOrdered By: Gennaro Fuentes on 01-26-2022 Estimated GFR (MDRD) Amer 66 mL/min >60 [facility] Comment on above: GFR Calc Estimated GFR (MDRD) Non-Af Amer 55 mL/min >60 [facility] Comment on above: Non- GFR Calc Platelets bldOrdered By: Sean uFentes on 01-26-2022 Platelets (Bld) [#/Vol] 395 10*3/uL 150-450 [facility] Serum or plasma albumin tiera urement (mass/volume)Ordered By: Gennaro Fuentes on 01-26-2022 Albumin [Mass/Vol] 3.2 g/dL 3.2-5.0 [facility] Serum or plasma calcium tiera urement (mass/volume)Ordered By: Gennaro Fuentes on 01-26-2022 Calcium [Mass/Vol] 9.2 mg/dL 8.5-10.1 [facility] Serum or plasma creatinine m easurement (mass/volume)Ordered By: Gennaro Fuentes on 01-26-2022 Creatinine [Mass/Vol] 1.39 mg/dL 0.70-1.30 [facility] Comment on above: The validity of the calculated GFR & GFRAA in patients over 70 years has not been determined. Clinical correlation is essential. Serum or plasma urea nitroge n measurement (mass/volume)Ordered By: Gennaro Fuentes on 01-26-2022 Urea nitrogen [Mass/Vol] 21 mg/dL 7-18 [facility] Urine creatinine measurement (mass/volume)Ordered By: Gennaro Fuentes on 01-26-2022 Creatinine (U) [Mass/Vol] 39.50 mg/dL NO RANGE EST. [facility] Urine protein measurement (m ass/volume)Ordered By: Gennaro Fuentes on 01-26-2022 Protein (U) [Mass/Vol] 125.0 mg/dL 0.0-11.8 [facility] Urine protein/creatinine mas s ratioOrdered By: Gennaro Fuentes on 01-26-2022 Protein/Creatinine (U) [Mass ratio] 3165 mg/g CRE 0-200 [facility] Basophil percentageon 2021 Bilirubin [Mass/Vol] 0.30 mg/dL 0.20-1.00 [facility] Work Phone: Comment on above: For patients on eltr ombopag therapy, use of Dimension [place] TBIL is not recommended. Chloride [Moles/Vol] 100 mmol/L 98-107 [facility] Work Phone: Glucose [Mass/Vol] 450 mg/dL 74-106 [facility] Work Phone: Comment on above: Glucose result great er than or equal to 200 mg/dLsuggests DIABETES MELLITUS per A.D.A. criteria. Potassium [Moles/Vol] 5.3 mmol/L 3.5-5.1 [facility] Work Phone: Protein [Mass/Vol] 6.9 g/dL 6.4-8.2 [facility] Work Phone: Sodium [Moles/Vol] 133 mmol/L 136-145 [facility] Work Phone: Laboratory - Chemistry and C hemistry - challengeon 01-06-2022 ALP [Catalytic activity/Vol] 149 U/L 45-117 [facility] Work Phone: ALT [Catalytic activity/Vol] 37 U/L 16-61 [facility] Work Phone: CO2 [Moles/Vol] 26.0 mmol/L 21.0-32.0 [facility] Work Phone: Globulin (S) [Mass/Vol] 4.0 g/dL 2.2-4.2 [facility] Work Phone: Urea nitrogen/Creatinine [Mass ratio] 23.8 mg/mg 10-20 [facility] Work Phone: No Panel Informationon 01-06 Estimated GFR (MDRD) Amer 49 mL/min >60 [facility] Work Phone: Comment on above: GFR Calc Estimated GFR (MDRD) Non-Af Amer 40 mL/min >60 [facility] Work Phone: Comment on above: Non- GFR Calc Urine Microalbumin/Creatinine Ratio 757.8 mg/g CRE <30 [facility] Work Phone: Serum or plasma albumin tiera urement (mass/volume)on 01-06-2022 Albumin [Mass/Vol] 2.9 g/dL 3.2-5.0 [facility] Work Phone: Serum or plasma albumin/glob ulin mass ratioon 01-06-2022 Albumin/Globulin [Mass ratio] 0.7 {ratio} 0.9-2.4 [facility] Work Phone: Serum or plasma calcium tiera urement (mass/volume)on 01-06-2022 Calcium [Mass/Vol] 9.0 mg/dL 8.5-10.1 [facility] Work Phone: Serum or plasma creatinine m easurement (mass/volume)on 01-06-2022 Creatinine [Mass/Vol] 1.81 mg/dL 0.70-1.30 [facility] Work Phone: Comment on above: The validity of the calculated GFR & GFRAA in patients over 70 years has not been determined. Clinical correlation is essential. Serum or plasma urea nitroge n measurement (mass/volume)on 01-06-2022 Urea nitrogen [Mass/Vol] 43 mg/dL 7-18 [facility] Work Phone: Thin prep Papanicolaou smear with manual screeningon 01-06-2022 Thin prep Papanicolaou smear with manual screening 18 U/L 15-37 [facility] [facility] Work Phone: Thin prep Papanicolaou smear with manual screening 7 5-15 [facility] Work Phone: Thin prep Papanicolaou smear with manual screening 488.0 mg/L NO RANGE EST. [facility] Work Phone: Urine creatinine measurement (mass/volume)on 01-06-2022 Creatinine (U) [Mass/Vol] 64.40 mg/dL NO RANGE EST. [facility] Work Phone: Basophil percentageon 2021 Chloride [Moles/Vol] 98 mmol/L 98-107 [facility] Work Phone: Glucose [Mass/Vol] 300 mg/dL 74-106 [facility] Work Phone: Comment on above: Glucose result great er than or equal to 200 mg/dLsuggests DIABETES MELLITUS per A.D.A. criteria. Potassium [Moles/Vol] 5.2 mmol/L 3.5-5.1 [facility] Work Phone: Sodium [Moles/Vol] 134 mmol/L 136-145 [facility] Work Phone: Laboratory - Chemistry and C hemistry - challengeon 01-01-2022 CO2 [Moles/Vol] 29.0 mmol/L 21.0-32.0 [facility] Work Phone: Urea nitrogen/Creatinine [Mass ratio] 21.7 mg/mg 10-20 [facility] Work Phone: No Panel Informationon 01-01 Estimated GFR (MDRD) Amer 60 mL/min >60 [facility] Work Phone: Comment on above: GFR Calc Estimated GFR (MDRD) Non-Af Amer 50 mL/min >60 [facility] Work Phone: Comment on above: Non- GFR Calc Serum or plasma calcium tiera urement (mass/volume)on 01-01-2022 Calcium [Mass/Vol] 9.3 mg/dL 8.5-10.1 [facility] Work Phone: Serum or plasma creatinine m easurement (mass/volume)on 01-01-2022 Creatinine [Mass/Vol] 1.52 mg/dL 0.70-1.30 [facility] Work Phone: Comment on above: The validity of the calculated GFR & GFRAA in patients over 70 years has not been determined. Clinical correlation is essential. Serum or plasma urea nitroge n measurement (mass/volume)on 01-01-2022 Urea nitrogen [Mass/Vol] 33 mg/dL 7-18 [facility] Work Phone: Thin prep Papanicolaou smear with manual screeningon 01-01-2022 Thin prep Papanicolaou smear with manual screening 7 5-15 [facility] Work Phone: Basophil percentageon 2021 Bilirubin [Mass/Vol] 0.30 mg/dL 0.20-1.00 [facility] Work Phone: Comment on above: For patients on eltr ombopag therapy, use of Dimension [place] TBIL is not recommended. Chloride [Moles/Vol] 102 mmol/L 98-107 [facility] Work Phone: Cholesterol [Mass/Vol] 227 mg/dL <200 [facility] Work Phone: Comment on above: <200 mg/dL Desirable 200-240 mg/dL Borderline >240 mg/dL High Risk Glucose [Mass/Vol] 223 mg/dL 74-106 [facility] Work Phone: Comment on above: Glucose result great er than or equal to 200 mg/dLsuggests DIABETES MELLITUS per A.D.A. criteria. Potassium [Moles/Vol] 5.2 mmol/L 3.5-5.1 [facility] Work Phone: Protein [Mass/Vol] 7.0 g/dL 6.4-8.2 [facility] Work Phone: Sodium [Moles/Vol] 132 mmol/L 136-145 [facility] Work Phone: Triglyceride [Mass/Vol] 98 mg/dL <199 [facility] Work Phone: Comment on above: The drugs N-Acetylcy steine and Metamizole may falsely depress this assay.Serum Triglycerides Reference Interval Normal <150 mg/dL Borderline high 150 - 199 mg/dL High 200 - 499 mg/dL Very High > or = 500 mg/dL Laboratory - Chemistry and C hemistry - challengeon 12-29-2021 ALP [Catalytic activity/Vol] 169 U/L 45-117 [facility] Work Phone: ALT [Catalytic activity/Vol] 53 U/L 16-61 [facility] Work Phone: CO2 [Moles/Vol] 25.0 mmol/L 21.0-32.0 [facility] Work Phone: Globulin (S) [Mass/Vol] 4.0 g/dL 2.2-4.2 [facility] Work Phone: Urea nitrogen/Creatinine [Mass ratio] 15.5 mg/mg 10-20 [facility] Work Phone: No Panel Informationon 12-29 Estimated GFR (MDRD) Amer 56 mL/min >60 [facility] Work Phone: Comment on above: GFR Calc Estimated GFR (MDRD) Non-Af Amer 46 mL/min >60 [facility] Work Phone: Comment on above: Non- GFR Calc Thyroid Stimulating Hormone (TSH) 2.54 uIU/mL 0.358-3.74 [facility] Work Phone: Serum or plasma albumin tiera urement (mass/volume)on 12-29-2021 Albumin [Mass/Vol] 3.0 g/dL 3.2-5.0 [facility] Work Phone: Serum or plasma albumin/glob ulin mass ratioon 12-29-2021 Albumin/Globulin [Mass ratio] 0.8 {ratio} 0.9-2.4 [facility] Work Phone: Serum or plasma calcium tiera urement (mass/volume)on 12-29-2021 Calcium [Mass/Vol] 8.8 mg/dL 8.5-10.1 [facility] Work Phone: Serum or plasma cholesterol in HDL measurement (mass/volume)on 12-29-2021 Cholesterol in HDL [Mass/Vol] 67 mg/dL >40 [facility] Work Phone: Comment on above: The drugs N-Acetylcy steine and Metamizole may falsely depress this assay. Reference Range HDL <40 mg/dL Low HDL Cholesterol HDL >or= 60 mg/dL High HDL Cholesterol Serum or plasma cholesterol in VLDL measurement (mass/volume)on 12-29-2021 Cholesterol in VLDL [Mass/Vol] 20 mg/dL 5-40 [facility] Work Phone: Serum or plasma creatinine m easurement (mass/volume)on 12-29-2021 Creatinine [Mass/Vol] 1.61 mg/dL 0.70-1.30 [facility] Work Phone: Comment on above: The validity of the calculated GFR & GFRAA in patients over 70 years has not been determined. Clinical correlation is essential. Serum or plasma low density lipoprotein (LDL) cholesterol measurement (mass/volume)on 12-29-2021 Cholesterol in LDL [Mass/Vol] 140 mg/dL 0-130 [facility] Work Phone: Serum or plasma urea nitroge n measurement (mass/volume)on 12-29-2021 Urea nitrogen [Mass/Vol] 25 mg/dL 7-18 [facility] Work Phone: Thin prep Papanicolaou smear with manual screeningon 12-29-2021 Thin prep Papanicolaou smear with manual screening 28 U/L 15-37 [facility] Work Phone: Thin prep Papanicolaou smear with manual screening 5 5-15 [facility] Work Phone: Thin prep Papanicolaou smear with manual screening 1640.0 mg/L NO RANGE EST. [facility] Work Phone: Whole blood hemoglobin A1c/t otal hemoglobin ratio (mass fraction)on 12-29-2021 HbA1c (Bld) [Mass fraction] 9.1 % 3.8-5.6 [facility] Work Phone: Comment on above: Normal < 5.7 % Predi abetic 5.7 - 6.4 % Diabetic >or= 6.5 % Please note range changes. Basophil percentageon 2021 Bilirubin [Mass/Vol] 0.30 mg/dL 0.20-1.00 [facility] Work Phone: Comment on above: For patients on eltr ombopag therapy, use of Dimension [place] TBIL is not recommended. Chloride [Moles/Vol] 101 mmol/L 98-107 [facility] Work Phone: Cholesterol [Mass/Vol] 274 mg/dL <200 [facility] Work Phone: Comment on above: <200 mg/dL Desirable 200-240 mg/dL Borderline >240 mg/dL High Risk Glucose [Mass/Vol] 195 mg/dL 74-106 [facility] Work Phone: Comment on above: Fasting Glucose resu lt greater than or equal to 126 mg/dL suggests DIABETES MELLITUS per A.D.A. criteria. Potassium [Moles/Vol] 5.0 mmol/L 3.5-5.1 [facility] Work Phone: Protein [Mass/Vol] 7.0 g/dL 6.4-8.2 [facility] Work Phone: Sodium [Moles/Vol] 136 mmol/L 136-145 [facility] Work Phone: Triglyceride [Mass/Vol] 98 mg/dL <199 [facility] Work Phone: Comment on above: The drugs N-Acetylcy steine and Metamizole may falsely depress this assay.Serum Triglycerides Reference Interval Normal <150 mg/dL Borderline high 150 - 199 mg/dL High 200 - 499 mg/dL Very High > or = 500 mg/dL Laboratory - Chemistry and C hemistry - challengeon 10-30-2021 ALP [Catalytic activity/Vol] 141 U/L 45-117 [facility] Work Phone: ALT [Catalytic activity/Vol] 31 U/L 16-61 [facility] Work Phone: CO2 [Moles/Vol] 29.0 mmol/L 21.0-32.0 [facility] Work Phone: Globulin (S) [Mass/Vol] 4.1 g/dL 2.2-4.2 [facility] Work Phone: Urea nitrogen/Creatinine [Mass ratio] 15.8 mg/mg 10-20 [facility] Work Phone: No Panel Informationon 10-30 Estimated GFR (MDRD) Amer 70 mL/min >60 [facility] Work Phone: Comment on above: GFR Calc Estimated GFR (MDRD) Non-Af Amer 58 mL/min >60 [facility] Work Phone: Comment on above: Non- GFR Calc Thyroid Stimulating Hormone (TSH) 1.07 uIU/mL 0.358-3.74 [facility] Work Phone: Urine Microalbumin/Creatinine Ratio 3362.3 mg/g CRE <30 [facility] Work Phone: Serum or plasma albumin tiera urement (mass/volume)on 10-30-2021 Albumin [Mass/Vol] 2.9 g/dL 3.2-5.0 [facility] Work Phone: Serum or plasma albumin/glob ulin mass ratioon 10-30-2021 Albumin/Globulin [Mass ratio] 0.7 {ratio} 0.9-2.4 [facility] Work Phone: Serum or plasma calcium tiera urement (mass/volume)on 10-30-2021 Calcium [Mass/Vol] 8.5 mg/dL 8.5-10.1 [facility] Work Phone: Serum or plasma cholesterol in HDL measurement (mass/volume)on 10-30-2021 Cholesterol in HDL [Mass/Vol] 63 mg/dL >40 [facility] Work Phone: Comment on above: The drugs N-Acetylcy steine and Metamizole may falsely depress this assay. Reference Range HDL <40 mg/dL Low HDL Cholesterol HDL >or= 60 mg/dL High HDL Cholesterol Serum or plasma cholesterol in VLDL measurement (mass/volume)on 10-30-2021 Cholesterol in VLDL [Mass/Vol] 20 mg/dL 5-40 [facility] Work Phone: Serum or plasma creatinine m easurement (mass/volume)on 10-30-2021 Creatinine [Mass/Vol] 1.33 mg/dL 0.70-1.30 [facility] Work Phone: Comment on above: The validity of the calculated GFR & GFRAA in patients over 70 years has not been determined. Clinical correlation is essential. Serum or plasma low density lipoprotein (LDL) cholesterol measurement (mass/volume)on 10-30-2021 Cholesterol in LDL [Mass/Vol] 191 mg/dL 0-130 [facility] Work Phone: Serum or plasma urea nitroge n measurement (mass/volume)on 10-30-2021 Urea nitrogen [Mass/Vol] 21 mg/dL 7-18 [facility] Work Phone: Thin prep Papanicolaou smear with manual screeningon 10-30-2021 Thin prep Papanicolaou smear with manual screening 21 U/L 15-37 [facility] Work Phone: Thin prep Papanicolaou smear with manual screening 6 5-15 [facility] Work Phone: Thin prep Papanicolaou smear with manual screening 1160.0 mg/L NO RANGE EST. [facility] Work Phone: Urine creatinine measurement (mass/volume)on 10-30-2021 Creatinine (U) [Mass/Vol] 34.50 mg/dL NO RANGE EST. [facility] Work Phone: Whole blood hemoglobin A1c/t otal hemoglobin ratio (mass fraction)on 10-30-2021 HbA1c (Bld) [Mass fraction] 9.4 % 3.8-5.6 [facility] Work Phone: Comment on above: Normal < 5.7 % Predi abetic 5.7 - 6.4 % Diabetic >or= 6.5 % Please note range changes. 24 hour urine alpha 2 globul in/total protein ratio by electrophoresis (mass fraction)on 06-08-2021 Alpha 2 globulin Elph (24H U) [Mass fraction] 5.0 % [facility] Work Phone: 24 hour urine beta globulin/ total protein ratio by electrophoresis (mass fraction)on 06-08-2021 Beta globulin Elph (24H U) [Mass fraction] 12.3 % [facility] Work Phone: 24 hour urine gamma globulin /total protein ratio by electrophoresis (mass fraction)on 06-08-2021 Gamma globulin Elph (24H U) [Mass fraction] 6.8 % [facility] Work Phone: Basophil percentageon 2021 Bilirubin [Mass/Vol] 0.40 mg/dL 0.20-1.00 [facility] Work Phone: Comment on above: For patients on eltr ombopag therapy, use of Dimension [place] TBIL is not recommended. Chloride [Moles/Vol] 101 mmol/L 98-107 [facility] Work Phone: Glucose [Mass/Vol] 110 mg/dL 74-106 [facility] Work Phone: Comment on above: Fasting Glucose resu lt from 100 to 125 mg/dL suggests IMPAIRED HOMEOSTASIS per A.D.A. criteria. Potassium [Moles/Vol] 4.0 mmol/L 3.5-5.1 [facility] Work Phone: Protein [Mass/Vol] 7.5 g/dL 6.4-8.2 [facility] Work Phone: Sodium [Moles/Vol] 134 mmol/L 136-145 [facility] Work Phone: Direct bilirubinon 2 Bilirubin.direct [Mass/Vol] 0.08 mg/dL 0.00-0.30 [facility] Work Phone: Laboratory - Chemistry and C hemistry - challengeon 06-08-2021 Albumin [Mass/Vol] 3.4 g/dL [facility] Work Phone: ALP [Catalytic activity/Vol] 145 U/L 45-117 [facility] Work Phone: ALT [Catalytic activity/Vol] 41 U/L 16-61 [facility] Work Phone: Amylase [Catalytic activity/Vol] 39 U/L 15-85 [facility] Work Phone: CO2 [Moles/Vol] 27.0 mmol/L 21.0-32.0 [facility] Work Phone: Globulin (S) [Mass/Vol] 4.3 g/dL 2.2-4.2 [facility] Work Phone: Urea nitrogen/Creatinine [Mass ratio] 16.8 mg/mg 10-20 [facility] Work Phone: No Panel Informationon 06-08 Addendum Document Comment [facility] Work Phone: Comment on above: The SPE pattern appe ars unremarkable. Evidence ofmonoclonal protein is not apparent. [id number]-0-Rkvjclasg 0.3 g/dL [facility] Work Phone: [id number] 0.8 g/dL [facility] Work Phone: Anti-Nuclear Antibody Screen Negative Negative [facility] Work Phone: Comment on above: Performed at: [place] [id number] Director: Aaron Lay PhD, Phone: [phone] Estimated GFR (MDRD) Amer 64 mL/min >60 [facility] Work Phone: Comment on above: GFR Calc Estimated GFR (MDRD) Non-Af Amer 53 mL/min >60 [facility] Work Phone: Comment on above: Non- GFR Calc Gamma Globulins 1.1 g/dL [facility] Work Phone: Urine Immunofixation PEP Note Comment [facility] Work Phone: Comment on above: Protein electrophore sis scan will follow via computer,mail, or pole framer delivery. Protein Fractions Elph [Inte rp]on 06-08-2021 Protein Fractions [Interp] Comment [facility] Work Phone: Comment on above: Protein electrophore sis scan will follow via computer,mail, or pole framer delivery. Serum albumin to globulin ra dwaine by protein electrophoresison 06-08-2021 Albumin/Globulin Elph [Mass ratio] 1.0 [facility] Work Phone: Serum globulin measurement ( mass/volume)on 06-08-2021 Globulin (S) [Mass/Vol] 3.5 g/dL [facility] Work Phone: Serum mitochondria antibody detectionon 06-08-2021 Mitochondria Ab Ql (S) <20.0 Units [facility] Work Phone: Comment on above: Negative 0.0 - 20.0 Equivocal 20.1 - 24.9 Positive >24.9Mitochondrial (M2) Antibodies are found in 90-96% ofpatients with primary biliary cirrhosis. Serum or plasma albumin tiera urement (mass/volume)on 06-08-2021 Albumin [Mass/Vol] 3.2 g/dL 3.2-5.0 [facility] Work Phone: Serum or plasma beta globuli n measurement by electrophoresis (mass/volume)on 06-08-2021 Beta globulin Elph [Mass/Vol] 1.3 g/dL [facility] Work Phone: Serum or plasma bone alkalin e phosphatase/total alkaline phosphatase ratio (catalyticon 06-08-2021 ALP Bone [Catalytic fraction] 28 % [facility] Work Phone: Serum or plasma calcium tiera urement (mass/volume)on 06-08-2021 Calcium [Mass/Vol] 8.7 mg/dL 8.5-10.1 [facility] Work Phone: Serum or plasma creatinine m easurement (mass/volume)on 06-08-2021 Creatinine [Mass/Vol] 1.43 mg/dL 0.70-1.30 [facility] Work Phone: Comment on above: The validity of the calculated GFR & GFRAA in patients over 70 years has not been determined. Clinical correlation is essential. Serum or plasma ferritin rashmi surement (mass/volume)on 06-08-2021 Ferritin [Mass/Vol] 140 ng/mL 26-388 [facility] Work Phone: Serum or plasma intestinal a lkaline phosphatase/total alkaline phosphatase ratio (jabari 06-08-2021 ALP Intest [Catalytic fraction] 30 % [facility] Work Phone: Comment on above: Intestinal [...] is an erosiveor ulcerative mucosal lesion.Performed at: [employer] [id number] Director: Aaron Lay PhD, Phone: [phone] Serum or plasma liver alkali ne phosphatase/total alkaline phosphatase ratio (catalytion 06-08-2021 ALP Liver [Catalytic fraction] 42 % [facility] Work Phone: Serum or plasma urea nitroge n measurement (mass/volume)on 06-08-2021 Urea nitrogen [Mass/Vol] 24 mg/dL 7-18 [facility] Work Phone: Thin prep Papanicolaou smear with manual screeningon 06-08-2021 Thin prep Papanicolaou smear with manual screening 22 U/L 15-37 [facility] Work Phone: Thin prep Papanicolaou smear with manual screening 6 5-15 [facility] Work Phone: Thin prep Papanicolaou smear with manual screening See comment [facility] Work Phone: Comment on above: Result: Not Observed Thin prep Papanicolaou smear with manual screening 151 IU/L [facility] Work Phone: Total protein bloodon 2021 Protein [Mass/Vol] 6.9 g/dL [facility] Work Phone: Urine albumin/total protein mass ratio by electrophoresison 06-08-2021 Albumin Elph (U) [Mass fraction] 71.2 % [facility] Work Phone: Urine alpha 1 globulin/total protein ratio by electrophoresis (mass fraction)on 06-08-2021 Alpha 1 globulin Elph (U) [Mass fraction] 4.7 % [facility] Work Phone: Urine monoclonal protein/tot al protein mass ratio by electrophoresison 06-08-2021 Protein.monoclonal Elph (U) [Mass fraction] See comment [facility] Work Phone: Comment on above: Result: Not Observed Urine protein measurement (m ass/volume)on 06-08-2021 Protein (U) [Mass/Vol] 154.5 mg/dL Not Estab. [facility] Work Phone: 24 hour urine alpha 2 globul in/total protein ratio by electrophoresis (mass fraction)on 04-11-2021 Alpha 2 globulin Elph (24H U) [Mass fraction] 3.6 % [facility] Work Phone: 24 hour urine beta globulin/ total protein ratio by electrophoresis (mass fraction)on 04-11-2021 Beta globulin Elph (24H U) [Mass fraction] 10.8 % [facility] Work Phone: 24 hour urine gamma globulin /total protein ratio by electrophoresis (mass fraction)on 04-11-2021 Gamma globulin Elph (24H U) [Mass fraction] 4.9 % [facility] Work Phone: Basophil percentageon 2021 Bilirubin [Mass/Vol] 0.40 mg/dL 0.20-1.00 [facility] Work Phone: Comment on above: For patients on eltr ombopag therapy, use of Dimension [place] TBIL is not recommended. Chloride [Moles/Vol] 102 mmol/L 98-107 [facility] Work Phone: Glucose [Mass/Vol] 130 mg/dL 74-106 [facility] Work Phone: Comment on above: Fasting Glucose resu lt greater than or equal to 126 mg/dL suggests DIABETES MELLITUS per A.D.A. criteria. Potassium [Moles/Vol] 5.0 mmol/L 3.5-5.1 [facility] Work Phone: Protein [Mass/Vol] 7.1 g/dL 6.4-8.2 [facility] Work Phone: Sodium [Moles/Vol] 136 mmol/L 136-145 [facility] Work Phone: Laboratory - Chemistry and C hemistry - challengeon 04-11-2021 Albumin [Mass/Vol] 3.3 g/dL [facility] Work Phone: ALP [Catalytic activity/Vol] 151 U/L 45-117 [facility] Work Phone: ALT [Catalytic activity/Vol] 27 U/L 16-61 [facility] Work Phone: CO2 [Moles/Vol] 28.0 mmol/L 21.0-32.0 [facility] Work Phone: Globulin (S) [Mass/Vol] 4.2 g/dL 2.2-4.2 [facility] Work Phone: Urea nitrogen/Creatinine [Mass ratio] 16.2 mg/mg 10-20 [facility] Work Phone: No Panel Informationon 04-11 Addendum Document Comment [facility] Work Phone: Comment on above: The SPE pattern appe ars unremarkable. Evidence ofmonoclonal protein is not apparent. Cnfak-7-Lxvvqwvjg 0.2 g/dL [facility] Work Phone: Nmwds-0-Wryobfizw 0.8 g/dL [facility] Work Phone: Estimated GFR (MDRD) Amer 65 mL/min >60 [facility] Work Phone: Comment on above: GFR Calc Estimated GFR (MDRD) Non-Af Amer 54 mL/min >60 [facility] Work Phone: Comment on above: Non- GFR Calc Gamma Globulins 1.1 g/dL [facility] Work Phone: Urine Immunofixation PEP Note Comment [facility] Work Phone: Comment on above: Protein electrophore sis scan will follow via computer,mail, or pole framer delivery. Protein Fractions Elph [Inte rp]on 04-11-2021 Protein Fractions [Interp] Comment [facility] Work Phone: Comment on above: Protein electrophore sis scan will follow via computer,mail, or pole framer delivery. Serum albumin to globulin ra dwaine by protein electrophoresison 04-11-2021 Albumin/Globulin Elph [Mass ratio] 1.0 [facility] Work Phone: Serum globulin measurement ( mass/volume)on 04-11-2021 Globulin (S) [Mass/Vol] 3.4 g/dL [facility] Work Phone: Serum or plasma albumin tiera urement (mass/volume)on 04-11-2021 Albumin [Mass/Vol] 2.9 g/dL 3.2-5.0 [facility] Work Phone: Serum or plasma albumin/glob ulin mass ratioon 04-11-2021 Albumin/Globulin [Mass ratio] 0.7 {ratio} 0.9-2.4 [facility] Work Phone: Serum or plasma beta globuli n measurement by electrophoresis (mass/volume)on 04-11-2021 Beta globulin Elph [Mass/Vol] 1.3 g/dL [facility] Work Phone: Serum or plasma bone alkalin e phosphatase/total alkaline phosphatase ratio (catalyticon 04-11-2021 ALP Bone [Catalytic fraction] 30 % [facility] Work Phone: Serum or plasma calcium tiera urement (mass/volume)on 04-11-2021 Calcium [Mass/Vol] 9.1 mg/dL 8.5-10.1 [facility] Work Phone: Serum or plasma creatinine m easurement (mass/volume)on 04-11-2021 Creatinine [Mass/Vol] 1.42 mg/dL 0.70-1.30 [facility] Work Phone: Comment on above: The validity of the calculated GFR & GFRAA in patients over 70 years has not been determined. Clinical correlation is essential. Serum or plasma intestinal a lkaline phosphatase/total alkaline phosphatase ratio (jabari 04-11-2021 ALP Intest [Catalytic fraction] 18 % [facility] Work Phone: Comment on above: Intestinal [...] is an erosiveor ulcerative mucosal lesion.Performed at: [address] [id number] Director: Aaron Lay PhD, Phone: [phone] Serum or plasma liver alkali ne phosphatase/total alkaline phosphatase ratio (catalytion 04-11-2021 ALP Liver [Catalytic fraction] 53 % [facility] Work Phone: Serum or plasma urea nitroge n measurement (mass/volume)on 04-11-2021 Urea nitrogen [Mass/Vol] 23 mg/dL 7-18 [facility] Work Phone: Thin prep Papanicolaou smear with manual screeningon 04-11-2021 Thin prep Papanicolaou smear with manual screening 16 U/L 15-37 [facility] Work Phone: Thin prep Papanicolaou smear with manual screening 6 5-15 [facility] Work Phone: Thin prep Papanicolaou smear with manual screening See comment [facility] Work Phone: Comment on above: Result: Not Observed Thin prep Papanicolaou smear with manual screening 150 IU/L [facility] Work Phone: Total protein bloodon 2021 Protein [Mass/Vol] 6.7 g/dL [facility] Work Phone: Urine albumin/total protein mass ratio by electrophoresison 04-11-2021 Albumin Elph (U) [Mass fraction] 74.2 % [facility] Work Phone: Urine alpha 1 globulin/total protein ratio by electrophoresis (mass fraction)on 04-11-2021 Alpha 1 globulin Elph (U) [Mass fraction] 6.6 % [facility] Work Phone: Urine monoclonal protein/tot al protein mass ratio by electrophoresison 04-11-2021 Protein.monoclonal Elph (U) [Mass fraction] See comment [facility] Work Phone: Comment on above: Result: Not Observed Urine protein measurement (m ass/volume)on 04-11-2021 Protein (U) [Mass/Vol] 146.3 mg/dL Not Estab. [facility] Work Phone: CT CERVICAL SPINE W/O CONTRA STon 11-06-2020 CT CERVICAL SPINE W/O CONTRAST [facility] Diagnostic Imaging Services [address] [place], [place] [id number] Diagnostic Imaging Report : [id number] Signed Name: OLIVIER MENDOZA MRUN: [id number] : 1960 Loc: ED Age / Sex: 59 / M ADM Status: REG ER ADM Date: 11/06/20 Room/Bed: Ordering Physician: Laci Pitts PA-C Procedure: CT CERVICAL SPINE W/O CONTRAST Order Number(s): [id number] Ordered Date: 11/06/20 Ordered Time: 1610 EXAMINATION: [...] 11/06/20 1739 Transcribed Date/Time: 11/06/20 1736 Normal [facility] [address] CHEST ABD PELVIS W/O CONo n 11-06-2020 CT CHEST ABD PELVIS W/O [facility] Diagnostic Imaging Services [address] [place] [address] Diagnostic Imaging Report : [id number] Signed [facility]: [id number] MRUN: [id number] : 1960 Loc: ED Age / Sex: 59 / M ADM Status: REG ER ADM Date: 11/06/20 Room/Bed: Ordering Physician: Laci Pitts PA-C Procedure: CT CHEST ABD PELVIS W/O CON Order Number(s): [id number] Ordered Date: 11/06/20 Ordered Time: 1610 EXAMINATION: [...] 11/06/20 1758 Transcribed Date/Time: 11/06/20 175 Normal [facility] CT HEAD W/O CONTRASTon 11-06 CT HEAD W/O CONTRAST [facility] Diagnostic Imaging Services [address] [place] [address] Diagnostic Imaging Report : [id number] Signed Name: [id number] MRUN: [id number] : 1960 Loc: ED Age / Sex: 59 / M ADM Status: REG ER ADM Date: 11/06/20 Room/Bed: Ordering Physician: Laci Pitts PA-C Procedure: CT HEAD W/O CONTRAST Order Number(s): [id number] Ordered Date: 11/06/20 Ordered Time: 161 EXAMINATION: [...] 11/06/20 173 Transcribed Date/Time: 11/06/20 172 Normal [facility] ED Physician Documentationon 11-06-2020 ED Physician Documentation [address] [place] [address] Physician Documentation Signed: Name: OLIVIER MENDOZA MRUN: [id number] : 1960 Loc: ED Age / Sex: [...] Contusion, Rib, ED Contusion, Lower Extremity Referrals: [facility] [Provider Group] - Call For [...] Patient repo (more content not included)... Normal [facility] LIPASEon 11-06-2020 Lipase [Catalytic activity/Vol] 29 U/L Normal 23-300 [facility] Comment on above: Performed By: #### L IPA 1, PT, PTT #### Main Lab - [facility] [address] [place] [address] PARTIAL THROMBOPLASTIN TIMEo n 11-06-2020 aPTT Coag (Bld) [Time] 24.8 s Normal 24.1-41.2 [facility] Comment on above: Performed By: #### L IPA 1, PT, PTT #### Main Lab - [facility] [address] [place] [address] PT WITH INRon 11-06-2020 INR Coag (PPP) [Relative time] 1.0 {INR} Normal [facility] Comment on above: Result Comment: DYANA MMENDED RANGES FOR INR: Therapeutic range for standard therapy INR: 2.0-3.0 Therapeutic range for high dose therapy INR: 2.5-3.5 Performed By: #### L IPA 1, PT, PTT #### Main Lab - [facility] [place], [place] [address] PT Coag (PPP) [Time] 13.1 s Normal 11.3-14.8 [facility] Comment on above: Performed By: #### L IPA 1, PT, PTT #### Main Lab - [facility] [address] [place] [address] Waveform Imaging Reporton Waveform Imaging Report [facility] Diagnostic Imaging Services [address] [place] [id number] Waveform Imaging Report : [id number] Signed Name: OLIVIER MENDOZA MRUN: [id number] : 1960 Loc: ED Age / Sex: 59 / M ADM Status: REG ER ADM Date: 11/06/20 Room/Bed: Ordering Physician: Laci Pitts PA-C Procedure: EKG Order Number(s): [id number] Ordered Date: 11/06/20 Ordered Time: 1611 Test Date: 2020-11-06 16:24:52 Pat Name: OLIVIER MENDOZA Department: ED Room: Gender: M Gearman: : 1960 Requested By: Laci Bragg Order Number: [id number] Reading MD: Darryl Chen Measurements Intervals Western Rate: 73 P: 141 CT: 164 QRS: 44 QRSD: 90 T: 105 [...] Signed Date/Time: 11/06/20 1744 Transcribed Date/Time: Normal [facility] XR FEMUR, LEFTon 11-06-2020 XR FEMUR, LEFT [facility] Diagnostic Imaging Services [address] [place] [id number] Diagnostic Imaging Report : [id number] Signed Name: OLIVIER MENDOZA MRUN: [id number] : 1960 Loc: ED Age / Sex: 59 / M ADM Status: REG ER ADM Date: 11/06/20 Room/Bed: Ordering Physician: Laci Pitts PA-C Procedure: XR FEMUR, LEFT Order Number(s): [id number] Ordered Date: 11/06/20 Ordered Time: 1613 EXAMINATION: [...] 11/06/20 174 Transcribed Date/Time: 11/06/20 173 Normal [facility] Vital Signs Date Time Vital Sign Value Performing Clinician Westi [email or web address] 12-17-2024 14:41-0400 Body height 170.[address] Sherice Avendano MD Work Phone: [facility] 12-17-2024 14:41-0400 Body mass index (BMI) [Ratio] 25.9 kg/m2 Dr. Sherice Avendano MD Work Phone: [facility] 12-17-2024 14:41-0400 Body temperature 98.2 [degF] Dr. Sherice Avendano MD Work Phone: [facility] 12-17-2024 14:41-0400 Body weight 75.[address] Sherice Avendano MD Work Phone: [facility] 12-17-2024 14:41-0400 Diastolic blood pressure 100 mm[Hg] Dr. Sherice Avendano MD Work Phone: [facility] 12-17-2024 14:41-0400 Heart rate 81 /min Dr. Sherice Avendano MD Work Phone: [facility] 12-17-2024 14:41-0400 Respiratory rate 16 /min Dr. Sherice Avendano MD Work Phone: [facility] 12-17-2024 14:41-0400 SaO2% (BldA) [Mass fraction] 93 % Dr. Sherice Avendano MD Work Phone: [facility] 12-17-2024 14:41-0400 Systolic blood pressure 168 mm[Hg] Dr. Sherice Avendano MD Work Phone: [facility] 11-26-2024 10:04-0400 Body height 170.[address] Sherice Avednano MD Work Phone: [facility] 11-26-2024 10:03-0400 Body mass index (BMI) [Ratio] 25.3 kg/m2 Dr. Sherice Avendano MD Work Phone: [facility] 11-26-2024 10:03-0400 Body weight 73.[address] Sherice Avendano MD Work Phone: [facility] 11-26-2024 10:03-0400 Diastolic blood pressure 74 mm[Hg] Dr. Sherice Avendano MD Work Phone: [facility] 11-26-2024 10:03-0400 Heart rate 45 /min Dr. Sherice Avendano MD Work Phone: [facility] 11-26-2024 10:03-0400 Respiratory rate 16 /min Dr. Sherice Avendano MD Work Phone: [facility] 11-26-2024 10:03-0400 SaO2% (BldA) [Mass fraction] 98 % Dr. Sherice Avendano MD Work Phone: [facility] 11-26-2024 10:03-0400 Systolic blood pressure 152 mm[Hg] Dr. Sherice Avendano MD Work Phone: [facility] 10-28-2024 09:40-0400 Body height 170.[address] Sherice Avendano MD Work Phone: [facility] 10-28-2024 09:40-0400 Body mass index (BMI) [Ratio] 25.2 kg/m2 Dr. Sherice Avendano MD Work Phone: [facility] 10-28-2024 09:40-0400 Body temperature 96.3 [degF] Dr. Sherice Avendano MD Work Phone: [facility] 10-28-2024 09:40-0400 Body weight 73.[address] Sherice Avendano MD Work Phone: [facility] 10-28-2024 09:40-0400 Diastolic blood pressure 80 mm[Hg] Dr. Sherice Avendano MD Work Phone: [facility] 10-28-2024 09:40-0400 Heart rate 62 /min Dr. Sherice Avendano MD Work Phone: [facility] 10-28-2024 09:40-0400 Respiratory rate 16 /min Dr. Sherice Avendano MD Work Phone: [facility] 10-28-2024 09:40-0400 SaO2% (BldA) [Mass fraction] 99 % Dr. Sherice Avendano MD Work Phone: [facility] 10-28-2024 09:40-0400 Systolic blood pressure 146 mm[Hg] Dr. Sherice Avendano MD Work Phone: [facility] 08-26-2024 09:35-0400 Diastolic blood pressure 103 mm[Hg] Dr. Sherice Avendano MD Work Phone: [facility] 08-26-2024 09:35-0400 Heart rate 56 /min Dr. Sherice Avendano MD Work Phone: [facility] 08-26-2024 09:35-0400 Systolic blood pressure 224 mm[Hg] Dr. Sherice Avendano MD Work Phone: [facility] 08-26-2024 09:35-0400 SaO2% (BldA) [Mass fraction] 97 % Dr. Sherice Avendano MD Work Phone: [facility] 08-26-2024 09:11-0400 Body height 170.[address] Sherice Avendano MD Work Phone: [facility] 08-26-2024 09:11-0400 Body mass index (BMI) [Ratio] 25.8 kg/m2 Dr. Sherice Avendano MD Work Phone: [facility] 08-26-2024 09:11-0400 Body weight 74.[address] Sherice Avendano MD Work Phone: [facility] 08-26-2024 09:11-0400 Respiratory rate 16 /min Dr. Sherice Avendano MD Work Phone: [facility] 08-20-2024 11:06-0400 Body height 170.[address] Sherice Avendano MD Work Phone: [facility] 08-20-2024 11:06-0400 Body mass index (BMI) [Ratio] 26.4 kg/m2 Dr. Sherice Avendano MD Work Phone: [facility] 08-20-2024 11:06-0400 Body temperature 97.7 [degF] Dr. Sherice Avendano MD Work Phone: [facility] 08-20-2024 11:06-0400 Body weight 76.[address] Sherice Avendano MD Work Phone: [facility] 08-20-2024 11:06-0400 Diastolic blood pressure 100 mm[Hg] Dr. Sherice Avendano MD Work Phone: [facility] 08-20-2024 11:06-0400 Heart rate 65 /min Dr. Sherice Avendano MD Work Phone: [facility] 08-20-2024 11:06-0400 Respiratory rate 18 /min Dr. Sherice Avendano MD Work Phone: [facility] 08-20-2024 11:06-0400 SaO2% (BldA) [Mass fraction] 98 % Dr. Sherice Avendano MD Work Phone: [facility] 08-20-2024 11:06-0400 Systolic blood pressure 188 mm[Hg] Dr. Sherice Avendano MD Work Phone: [facility] 08-04-2024 17:39-0400 Body temperature 97.8 [degF] Dr. Sherice Avendano MD Work Phone: [facility] 08-04-2024 17:39-0400 Diastolic blood pressure 74 mm[Hg] Dr. Sherice Avendano MD Work Phone: [facility] 08-04-2024 17:39-0400 Heart rate 59 /min Dr. Sherice Avendano MD Work Phone: [facility] 08-04-2024 17:39-0400 Respiratory rate 21 /min Dr. Sherice Avendano MD Work Phone: [facility] 08-04-2024 17:39-0400 SaO2% (BldA) [Mass fraction] 99 % Dr. Sherice Avendano MD Work Phone: [facility] 08-04-2024 17:39-0400 Systolic blood pressure 151 mm[Hg] Dr. Sherice Avendano MD Work Phone: [facility] 08-04-2024 13:41-0400 Body height 170.[address] Sherice Avendano MD Work Phone: [facility] 08-04-2024 13:41-0400 Body mass index (BMI) [Ratio] 27 kg/m2 Dr. Sherice Avendano MD Work Phone: [facility] 08-04-2024 13:41-0400 Body weight 78.[address] Sherice Avendano MD Work Phone: [facility] 05-19-2024 09:21-0400 Body mass index (BMI) [Ratio] 27.6 kg/m2 Gennaro Fuentes [employer] COMPLIANCE MANAGER-C Work Phone: [facility] 05-19-2024 09:21-0400 Body weight 79.83 kg Gennaro Fuentes REGULATORY COMPLIANCE MANAGER-C Work Phone: [facility] 05-19-2024 09:21-0400 Diastolic blood pressure 99 mm[Hg] Gennaro Fuentes REGULATORY COMPLIANCE MANAGER-C Work Phone: [facility] 05-19-2024 09:21-0400 Heart rate 70 /min Gennaro Fuentes REGULATORY COMPLIANCE MANAGER-C Work Phone: [facility] 05-19-2024 09:21-0400 Respiratory rate 18 /min Gennaro Fuentes REGULATORY COMPLIANCE MANAGER-C Work Phone: [facility] 05-19-2024 09:21-0400 SaO2% (BldA) [Mass fraction] 98 % Gennaro Fuentes REGULATORY COMPLIANCE MANAGER-C Work Phone: [facility] 05-19-2024 09:21-0400 Systolic blood pressure 198 mm[Hg] Gennaro Fuentes REGULATORY COMPLIANCE MANAGER-C Work Phone: [facility] 05-07-2024 13:35-0500 Body height 170.18 cm Gennaro Fuentes REGULATORY COMPLIANCE MANAGER-C Work Phone: [facility] 05-07-2024 13:35-0500 Body mass index (BMI) [Ratio] 28 kg/m2 Gennaro Fuentes REGULATORY COMPLIANCE MANAGER-C Work Phone: [facility] 05-07-2024 13:35-0500 Body temperature 97.3 [degF] Gennaro Fuentes REGULATORY COMPLIANCE MANAGER-C Work Phone: [facility] 05-07-2024 13:35-0500 Body weight 81.19 kg Gennaro Fuentes REGULATORY COMPLIANCE MANAGER-C Work Phone: [facility] 05-07-2024 13:35-0500 Diastolic blood pressure 84 mm[Hg] Gennaro Fuentes REGULATORY COMPLIANCE MANAGER-C Work Phone: [facility] 05-07-2024 13:35-0500 Heart rate 77 /min Gennaro Fuentes REGULATORY COMPLIANCE MANAGER-C Work Phone: [facility] 05-07-2024 13:35-0500 Respiratory rate 16 /min Gennaro Fuentes REGULATORY COMPLIANCE MANAGER-C Work Phone: [facility] 05-07-2024 13:35-0500 SaO2% (BldA) [Mass fraction] 99 % Gennaro Fuentes REGULATORY COMPLIANCE MANAGER-C Work Phone: [facility] 05-07-2024 13:35-0500 Systolic blood pressure 138 mm[Hg] Gennaro Fuentes REGULATORY COMPLIANCE MANAGER-C Work Phone: [facility] 03-11-2024 14:19-0500 Body mass index (BMI) [Ratio] 28.3 kg/m2 Gennaro Fuentes REGULATORY COMPLIANCE MANAGER-C Work Phone: [facility] 03-11-2024 14:19-0500 Body weight 82.1 kg Gennaro Fuentes REGULATORY COMPLIANCE MANAGER-C Work Phone: [facility] 03-11-2024 14:19-0500 Diastolic blood pressure 103 mm[Hg] Gennaro Fuentes REGULATORY COMPLIANCE MANAGER-C Work Phone: [facility] 03-11-2024 14:19-0500 Heart rate 66 /min Gennaro Fuentes REGULATORY COMPLIANCE MANAGER-C Work Phone: [facility] 03-11-2024 14:19-0500 Respiratory rate 18 /min Gennaro Fuentes REGULATORY COMPLIANCE MANAGER-C Work Phone: [facility] 03-11-2024 14:19-0500 SaO2% (BldA) [Mass fraction] 99 % Gennaro Fuentes REGULATORY COMPLIANCE MANAGER-C Work Phone: [facility] 03-11-2024 14:19-0500 Systolic blood pressure 191 mm[Hg] Gennaro Fuentes REGULATORY COMPLIANCE MANAGER-C Work Phone: [facility] 05-22-2023 09:20-0400 Body height 170.[address] Sherice Avendano Work Phone: [facility] 05-22-2023 09:20-0400 Body mass index (BMI) [Ratio] 27.8 kg/m2 Dr. Sherice Avendano Work Phone: [facility] 05-22-2023 09:20-0400 Body temperature 97.6 [degF] Dr. Sherice Avendano Work Phone: [facility] 05-22-2023 09:20-0400 Body weight 80.[address] Sherice Avendano Work Phone: [facility] 05-22-2023 09:20-0400 Diastolic blood pressure 76 mm[Hg] Dr. Sherice Avendano Work Phone: [facility] 05-22-2023 09:20-0400 Heart rate 77 /min Dr. Sherice Avendano Work Phone: [facility] 05-22-2023 09:20-0400 Respiratory rate 16 /min Dr. Sherice Avendano Work Phone: [facility] 05-22-2023 09:20-0400 SaO2% (BldA) [Mass fraction] 98 % Dr. Sherice Avendano Work Phone: [facility] 05-22-2023 09:20-0400 Systolic blood pressure 126 mm[Hg] Dr. Sherice Avendano Work Phone: [facility] 05-01-2023 08:06-0500 Body height 170.[address] Sherice Avendano Work Phone: [facility] 05-01-2023 08:06-0500 Body mass index (BMI) [Ratio] 27.3 kg/m2 Dr. Sherice Avendano Work Phone: [facility] 05-01-2023 08:06-0500 Body temperature 97.5 [degF] Dr. Sherice Avendano Work Phone: [facility] 05-01-2023 08:06-0500 Body weight 79.[address] Sherice Avendano Work Phone: [facility] 05-01-2023 08:06-0500 Diastolic blood pressure 78 mm[Hg] Dr. Sherice Avendano Work Phone: [facility] 05-01-2023 08:06-0500 Heart rate 64 /min Dr. Sherice Avendano Work Phone: [facility] 05-01-2023 08:06-0500 Respiratory rate 16 /min Dr. Sherice Avendano Work Phone: [facility] 05-01-2023 08:06-0500 SaO2% (BldA) [Mass fraction] 97 % Dr. Sherice Avendano Work Phone: [facility] 05-01-2023 08:06-0500 Systolic blood pressure 122 mm[Hg] Dr. Sherice Avendano Work Phone: [facility] 04-24-2023 10:04-0500 Body height 170.[address] Sherice Avendano Work Phone: [facility] 04-24-2023 10:04-0500 Body mass index (BMI) [Ratio] 28.3 kg/m2 Dr. Sherice Avendano Work Phone: [facility] 04-24-2023 10:04-0500 Body temperature 97.8 [degF] Dr. Sherice Avendano Work Phone: [facility] 04-24-2023 10:04-0500 Body weight 82.[address] Sherice Avendano Work Phone: [facility] 04-24-2023 10:04-0500 Diastolic blood pressure 76 mm[Hg] Dr. Sherice Avendano Work Phone: [facility] 04-24-2023 10:04-0500 Heart rate 50 /min Dr. Sherice Avendano Work Phone: [facility] 04-24-2023 10:04-0500 Respiratory rate 16 /min Dr. Sherice Avendano Work Phone: [facility] 04-24-2023 10:04-0500 SaO2% (BldA) [Mass fraction] 98 % Dr. Sherice Avendano Work Phone: [facility] 04-24-2023 10:04-0500 Systolic blood pressure 136 mm[Hg] Dr. Sherice Avendano Work Phone: [facility] 04-21-2023 09:26-0500 Body mass index (BMI) [Ratio] 28.8 kg/m2 Dr. Sherice Avendano Work Phone: [facility] 04-21-2023 09:26-0500 Body temperature 98 [degF] Dr. Sherice Avendano Work Phone: [facility] 04-21-2023 09:26-0500 Body weight 83.[address] Sherice Avendano Work Phone: [facility] 04-21-2023 09:26-0500 Diastolic blood pressure 72 mm[Hg] Dr. Sherice Avendano Work Phone: [facility] 04-21-2023 09:26-0500 Heart rate 78 /min Dr. Sherice Avendano Work Phone: [facility] 04-21-2023 09:26-0500 Respiratory rate 17 /min Dr. Sherice Avendano Work Phone: [facility] 04-21-2023 09:26-0500 SaO2% (BldA) [Mass fraction] 98 % Dr. Sherice Avendano Work Phone: [facility] 04-21-2023 09:26-0500 Systolic blood pressure 152 mm[Hg] Dr. Sherice Avendano Work Phone: [facility] 04-01-2023 10:43-0500 Body height 170.[address] Sherice Avendano Work Phone: [facility] 04-01-2023 10:43-0500 Body mass index (BMI) [Ratio] 28.3 kg/m2 Dr. Sherice Avendano Work Phone: [facility] 04-01-2023 10:43-0500 Body temperature 97.4 [degF] Dr. Sherice Avendano Work Phone: [facility] 04-01-2023 10:43-0500 Body weight 82.[address] Sherice Avendano Work Phone: [facility] 04-01-2023 10:43-0500 Diastolic blood pressure 76 mm[Hg] Dr. Sherice Avendano Work Phone: [facility] 04-01-2023 10:43-0500 Heart rate 64 /min Dr. Sherice Avendano Work Phone: [facility] 04-01-2023 10:43-0500 Respiratory rate 16 /min Dr. Sherice Avendano Work Phone: [facility] 04-01-2023 10:43-0500 SaO2% (BldA) [Mass fraction] 98 % Dr. Sherice Avendano Work Phone: [facility] 04-01-2023 10:43-0500 Systolic blood pressure 124 mm[Hg] Dr. Sherice Avendano Work Phone: [facility] 02-19-2023 08:37-0500 Body temperature 98.4 [degF] Dr. Sherice Avendano Work Phone: [facility] 02-19-2023 08:37-0500 Body weight 79.[address] Sherice Avendano Work Phone: [facility] 02-19-2023 08:37-0500 Diastolic blood pressure 92 mm[Hg] Dr. Sherice Avendano Work Phone: [facility] 02-19-2023 08:37-0500 Heart rate 79 /min Dr. Sherice Avendano Work Phone: [facility] 02-19-2023 08:37-0500 Respiratory rate 16 /min Dr. Sherice Avendano Work Phone: [facility] 02-19-2023 08:37-0500 SaO2% (BldA) [Mass fraction] 94 % Dr. Sherice Avendano Work Phone: [facility] 02-19-2023 08:37-0500 Systolic blood pressure 176 mm[Hg] Dr. Sherice Avendano Work Phone: [facility] 12-26-2022 09:27-0400 Body temperature 98.7 [degF] Dr. Sherice Avendano Work Phone: [facility] 12-26-2022 09:27-0400 Diastolic blood pressure 72 mm[Hg] Dr. Sherice Avendano Work Phone: [facility] 12-26-2022 09:27-0400 Heart rate 68 /min Dr. Sherice Avendano Work Phone: [facility] 12-26-2022 09:27-0400 Respiratory rate 17 /min Dr. Sherice Avendano Work Phone: [facility] 12-26-2022 09:27-0400 SaO2% (BldA) [Mass fraction] 97 % Dr. Sherice Avendano Work Phone: [facility] 12-26-2022 09:27-0400 Systolic blood pressure 145 mm[Hg] Dr. Sherice Avendano Work Phone: [facility] 11-07-2022 15:05-0400 Body temperature 98.4 [degF] Dr. Sherice Avendano Work Phone: [facility] 11-07-2022 15:05-0400 Diastolic blood pressure 78 mm[Hg] Dr. Sherice Avendano Work Phone: [facility] 11-07-2022 15:05-0400 Heart rate 47 /min Dr. Sherice Avendano Work Phone: [facility] 11-07-2022 15:05-0400 Respiratory rate 16 /min Dr. Sherice Avendano Work Phone: [facility] 11-07-2022 15:05-0400 SaO2% (BldA) [Mass fraction] 96 % Dr. Sherice Avendano Work Phone: [facility] 11-07-2022 15:05-0400 Systolic blood pressure 130 mm[Hg] Dr. Sherice Avendano Work Phone: [facility] 08-27-2022 08:57-0400 Body height 170.[address] Sherice Avendano Work Phone: [facility] 08-27-2022 08:57-0400 Body mass index (BMI) [Ratio] 27.1 kg/m2 Dr. Sherice Avendano Work Phone: [facility] 08-27-2022 08:57-0400 Body weight 78.[address] Sherice Avendano Work Phone: [facility] 08-27-2022 08:57-0400 Diastolic blood pressure 64 mm[Hg] Dr. Sherice Avendano Work Phone: [facility] 08-27-2022 08:57-0400 Heart rate 56 /min Dr. Sherice Avendano Work Phone: [facility] 08-27-2022 08:57-0400 Respiratory rate 16 /min Dr. Sherice Avendano Work Phone: [facility] 08-27-2022 08:57-0400 Systolic blood pressure 124 mm[Hg] Dr. Sherice Avendano Work Phone: [facility] 08-15-2022 10:02-0400 Body mass index (BMI) [Ratio] 27.3 kg/m2 Dr. Sherice Avendano Work Phone: [facility] 08-15-2022 10:02-0400 Body temperature 96.4 [degF] Dr. Sherice Avendano Work Phone: [facility] 08-15-2022 10:02-0400 Body weight 79.[address] Sherice Avendano Work Phone: [facility] 08-15-2022 10:02-0400 Diastolic blood pressure 64 mm[Hg] Dr. Sherice Avendano Work Phone: [facility] 08-15-2022 10:02-0400 Heart rate 54 /min Dr. Sherice Avendano Work Phone: [facility] 08-15-2022 10:02-0400 Respiratory rate 18 /min Dr. Sherice Avendano Work Phone: [facility] 08-15-2022 10:02-0400 SaO2% (BldA) [Mass fraction] 98 % Dr. Sherice Avendano Work Phone: [facility] 08-15-2022 10:02-0400 Systolic blood pressure 122 mm[Hg] Dr. Sherice Avendano Work Phone: [facility] 03-01-2022 08:56-0500 Body height 170.[address] hSerice Avendano Work Phone: [facility] 03-01-2022 08:56-0500 Body mass index (BMI) [Ratio] 27.1 kg/m2 Dr. Sherice Avendano Work Phone: [facility] 03-01-2022 08:56-0500 Body temperature 97 [degF] Dr. Sherice Avendano Work Phone: [facility] 03-01-2022 08:56-0500 Body weight 78.[address] Sherice Avendano Work Phone: [facility] 03-01-2022 08:56-0500 Diastolic blood pressure 82 mm[Hg] Dr. Sherice Avendano Work Phone: [facility] 03-01-2022 08:56-0500 Heart rate 76 /min Dr. Sherice Avendano Work Phone: [facility] 03-01-2022 08:56-0500 Respiratory rate 16 /min Dr. Sherice Avendano Work Phone: [facility] 03-01-2022 08:56-0500 SaO2% (BldA) [Mass fraction] 99 % Dr. Sheirce Avendano Work Phone: [facility] 03-01-2022 08:56-0500 Systolic blood pressure 140 mm[Hg] Dr. Sherice Avendano Work Phone: [facility] 02-27-2022 08:26-0500 Body mass index (BMI) [Ratio] 27.1 kg/m2 Dr. Sherice Avendano Work Phone: [facility] 02-27-2022 08:26-0500 Body weight 78.[address] Sherice Avendano Work Phone: [facility] 02-27-2022 08:26-0500 Diastolic blood pressure 80 mm[Hg] Dr. Sherice Avendano Work Phone: [facility] 02-27-2022 08:26-0500 Heart rate 41 /min Dr. Sherice Avendano Work Phone: [facility] 02-27-2022 08:26-0500 Respiratory rate 18 /min Dr. Sherice Avendano Work Phone: [facility] 02-27-2022 08:26-0500 SaO2% (BldA) [Mass fraction] 10 % Dr. Sherice Avendano Work Phone: [facility] 02-27-2022 08:26-0500 Systolic blood pressure 130 mm[Hg] Dr. Sherice Avendano Work Phone: [facility] 02-15-2022 13:04-0500 Body temperature 97.3 [degF] Dr. Sherice Avendano Work Phone: [facility] 02-15-2022 13:04-0500 Body weight 80.[address] Sherice Avendano Work Phone: [facility] 02-15-2022 13:04-0500 Diastolic blood pressure 64 mm[Hg] Dr. Sherice Avendano Work Phone: [facility] 02-15-2022 13:04-0500 Heart rate 80 /min Dr. Sherice Avendano Work Phone: [facility] 02-15-2022 13:04-0500 Respiratory rate 18 /min Dr. Sherice Avendano Work Phone: [facility] 02-15-2022 13:04-0500 SaO2% (BldA) [Mass fraction] 99 % Dr. Sherice Avendano Work Phone: [facility] 02-15-2022 13:04-0500 Systolic blood pressure 124 mm[Hg] Dr. Sherice Avendano Work Phone: [facility] 01-01-2022 08:24-0400 Body height 170.[address] Sherice Avendano Work Phone: [facility] Work Phone: 01-01-2022 08:24-0400 Body mass index (BMI) [Ratio] 26.4 kg/m2 Dr. Sherice Avendano Work Phone: [facility] Work Phone: 01-01-2022 08:24-0400 Body weight 76.[address] Sherice Avendano Work Phone: [facility] Work Phone: 01-01-2022 08:24-0400 Diastolic blood pressure 74 mm[Hg] Dr. Sherice Avendano Work Phone: [facility] Work Phone: 01-01-2022 08:24-0400 Heart rate 42 /min Dr. Sherice Avendano Work Phone: [facility] Work Phone: 01-01-2022 08:24-0400 Respiratory rate 18 /min Dr. Sherice Avendano Work Phone: [facility] Work Phone: 01-01-2022 08:24-0400 SaO2% (BldA) [Mass fraction] 99 % Dr. Sherice Avendano Work Phone: [facility] Work Phone: 01-01-2022 08:24-0400 Systolic blood pressure 186 mm[Hg] Dr. Sherice Avendano Work Phone: [facility] Work Phone: 11-24-2021 09:01-0400 Body mass index (BMI) [Ratio] 25.9 kg/m2 Dr. Sherice Avendano Work Phone: [facility] Work Phone: 11-24-2021 09:01-0400 Body weight 75.[address] Sherice Avendano Work Phone: [facility] Work Phone: 11-24-2021 09:01-0400 Diastolic blood pressure 86 mm[Hg] Dr. Sherice Avendano Work Phone: [facility] Work Phone: 11-24-2021 09:01-0400 Heart rate 64 /min Dr. Sherice Avendano Work Phone: [facility] Work Phone: 11-24-2021 09:01-0400 Respiratory rate 16 /min Dr. Sherice Avendano Work Phone: [facility] Work Phone: 11-24-2021 09:01-0400 Systolic blood pressure 184 mm[Hg] Dr. Sherice Avendano Work Phone: [facility] Work Phone: 11-01-2021 10:33-0400 Body height 170.[address] Sherice Avendano Work Phone: [facility] Work Phone: 11-01-2021 10:33-0400 Body mass index (BMI) [Ratio] 25.7 kg/m2 Dr. Sherice Avendano Work Phone: [facility] Work Phone: 11-01-2021 10:33-0400 Body temperature 97.4 [degF] Dr. Sherice Avendano Work Phone: [facility] Work Phone: 11-01-2021 10:33-0400 Body weight 74.[address] Sherice Avendano Work Phone: [facility] Work Phone: 11-01-2021 10:33-0400 Diastolic blood pressure 70 mm[Hg] Dr. Sherice Avendano Work Phone: [facility] Work Phone: 11-01-2021 10:33-0400 Heart rate 51 /min Dr. Sherice Avendano Work Phone: [facility] Work Phone: 11-01-2021 10:33-0400 Respiratory rate 16 /min Dr. Sherice Avendano Work Phone: [facility] Work Phone: 11-01-2021 10:33-0400 SaO2% (BldA) [Mass fraction] 99 % Dr. Sherice Avendano Work Phone: [facility] Work Phone: 11-01-2021 10:33-0400 Systolic blood pressure 144 mm[Hg] Dr. Sherice Avendano Work Phone: [facility] Work Phone: 05-22-2021 11:22-0400 Body height 170.[address] Sherice Avendano Work Phone: [facility] Work Phone: 05-22-2021 11:22-0400 Body mass index (BMI) [Ratio] 27.1 kg/m2 Dr. Sherice Avendano Work Phone: [facility] Work Phone: 05-22-2021 11:22-0400 Body weight 78.[address] Sherice Avendano Work Phone: [facility] Work Phone: 05-22-2021 11:22-0400 Diastolic blood pressure 70 mm[Hg] Dr. Sherice Avendano Work Phone: [facility] Work Phone: 05-22-2021 11:22-0400 Heart rate 55 /min Dr. Sherice Avendano Work Phone: [facility] Work Phone: 05-22-2021 11:22-0400 Respiratory rate 18 /min Dr. Sherice Avendano Work Phone: [facility] Work Phone: 05-22-2021 11:22-0400 SaO2% (BldA) [Mass fraction] 99 % Dr. Sherice Avendano Work Phone: [facility] Work Phone: 05-22-2021 11:22-0400 Systolic blood pressure 166 mm[Hg] Dr. Sherice Avendano Work Phone: [facility] Work Phone: Encounters Encounter Date Encounter Type Care Provider Facility Start: 12-17-2024 End: 12-17-2024 Patient encounter procedure Yan MA -[facility] Work Phone: Start: 12-17-2024 End: 12-17-2024 ambulatory [facility] [place] [place] Start: 12-01-2024 Non-patient / Non-visit Dr. Nicholas davis MD -[facility] Start: 12-01-2024 End: 12-01-[address] Sherice Avendano MD Work Phone: -Cardiovascular Services Start: 12-01-2024 End: 12-01-2024 Patient encounter procedure Chacorta Porter NP-C -Cardi[facility] Services Work Phone: Start: 12-01-2024 End: 12-01-2024 ambulatory [facility] Facility:[facility] Start: 11-26-2024 End: 11-26-2024 Patient encounter procedure Chacorta DUNN -[facility] Work Phone: Start: 11-26-2024 End: 11-26-[address] Sherice Avendano MD Work Phone: -[facility] Start: 11-11-2024 End: 11-11-[address] Sherice Avendano MD -[facility] Work Phone: Start: 11-11-2024 End: 11-11-[address] Sherice Avendano MD Work Phone: -[facility] Start: 10-28-2024 End: 10-28-2024 Patient encounter procedure Yan MA -[facility] Work Phone: Start: 10-28-2024 End: 10-28-[address] Sherice Avendano MD Work Phone: -[facility] Start: 08-26-2024 End: 08-26-2024 Patient encounter procedure Chacorta Porter REGULATORY COMPLIANCE MANAGER-C -[facility] Work Phone: Start: 08-26-2024 End: 08-26-[address] Sherice Avendano MD Work Phone: [facility] Work Phone: Start: 08-20-2024 End: 08-20-2024 Patient encounter procedure Riya Lutz REGULATORY COMPLIANCE MANAGER-C -[facility] Work Phone: Start: 08-20-2024 End: 08-20-[address] Sherice Avendano MD Work Phone: [facility] Work Phone: Start: 08-04-2024 End: 08-04-2024 Emergency department patient visit Dr. Sherice Avendano MD Work Phone: -Emergency Department Work Phone: Start: 06-10-2024 End: 06-10-2024 ambulatory Gennaro Fuentes REGULATORY COMPLIANCE MANAGER-C Work Phone: [facility] Work Phone: Start: 06-10-2024 End: 06-10-2024 Patient encounter procedure Chacorta Porter REGULATORY COMPLIANCE MANAGER-C -[facility] Work Phone: Start: 06-10-2024 End: 06-10-2024 ambulatory Chacorta Porter NP Facility:[facility] Start: 05-19-2024 End: 05-19-2024 Patient encounter procedure Chacorta Porter REGULATORY COMPLIANCE MANAGER-C -[facility] Work Phone: Start: 05-19-2024 End: 05-19-2024 ambulatory Chacorta Porter REGULATORY COMPLIANCE MANAGER Facility:[facility] Start: 05-15-2024 End: 05-15-2024 ambulatory Gennaro Fuentes REGULATORY COMPLIANCE MANAGER-C Work Phone: [facility] Work Phone: Start: 05-15-2024 End: 05-15-[address] Sherice Avendano MD -Laboratory, [place] Work Phone: Start: 05-15-2024 End: 05-15-2024 ambulatory [facility] Facility:[facility] Start: 05-07-2024 End: 05-07-[address] Sherice Avendano MD -[facility] Work Phone: Start: 05-07-2024 End: 05-07-2024 ambulatory [facility] [place] [place] Start: 04-02-2024 ambulatory Marlena Angel Fa cility:[facility] Start: 04-02-2024 Non-patient / Non-visit Dr. India [facility]ER [facility] Start: 04-01-2024 ambulatory Nicholas Teixeira Facility:[facility] Start: 04-01-2024 Non-patient / Non-visit Dr. Nicholas davis MD -[facility] Start: 04-01-2024 End: 04-01-2024 Patient encounter procedure Marlena MA -[facility] Work Phone: Start: 04-01-2024 End: 04-01-2024 ambulatory Marlena Angel Facility:[facility] Start: 04-01-2024 Non-patient / Non-visit Dr. India WERNER [facility] Start: 03-11-2024 End: 03-11-2024 Patient encounter procedure Marlena MA -[facility] Work Phone: Start: 03-11-2024 End: 03-11-2024 ambulatory Marlena Angel Facility[place] [place] Start: 03-10-2024 End: 03-10-[address] Edna Tilley MD -[facility], [place] Work Phone: Start: 03-09-2024 End: 03-10-2024 ambulatory Edna Tilley Facility:[facility] Start: 02-24-2024 ambulatory Pop Castellanos Facility:[facility] Start: 02-24-2024 Non-patient / Non-visit Dr. India WERNER -[facility] Start: 02-24-2024 End: 02-24-2024 Patient encounter procedure Gennaro Fuentes REGULATORY COMPLIANCE MANAGER-C -[facility] Work Phone: Start: 02-24-2024 End: 02-24-2024 ambulatory Gennaro Fuentes NP Facility:[facility] Start: 02-12-2024 End: 02-12-2024 Telephone encounter Jhonny Lim MD Work Phone: [facility] Start: 01-16-2024 End: 01-16-2024 ambulatory Gennaro Fuentes NP Facility:[facility] Start: 01-10-2024 End: 01-10-2024 Telephone encounter Jhonny Lim MD Work Phone: [facility] Start: 01-09-2024 End: 01-09-2024 Emergency department patient visit Denzel Carlin Facility:[facility] Start: 01-09-2024 End: 01-09-2024 ambulatory Sherice Avendano [place] [place] Start: 01-09-2024 End: 01-09-2024 ambulatory Luis Ahustlekarla Avendano Facility:[facility] Start: 06-12-2023 End: 06-12-2023 ambulatory FABIOLA PARKER Facility:[id number] Start: 06-06-2023 Patient encounter status Gennaro Fuentes REGULATORY COMPLIANCE MANAGER-C Work Phone: [facility] Comment on above: Scheduled for retina surgery on 06/12/2023 Start: 05-22-2023 End: 05-22-[address] Sherice Avendano Work Phone: [facility] Work Phone: Start: 05-22-2023 End: 05-22-2023 Emergency department patient visit Dr. Sherice Avendano Work Phone: [facility] Start: 05-22-2023 End: 05-22-[address] Sherice Avendano Work Phone: [facility] Work Phone: Start: 05-09-2023 End: 05-09-[address] Sherice Avendano Work Phone: [facility] Work Phone: Start: 05-09-2023 End: 05-09-[address] Sherice Avendano Work Phone: [facility] Work Phone: Start: 05-01-2023 End: 05-01-[address] Sherice Avendano Work Phone: [facility] Work Phone: Start: 04-25-2023 End: 04-25-[address] Sherice Avendano Work Phone: [facility] Work Phone: Start: 04-25-2023 End: 04-25-[address] Sherice Avendano Work Phone: [facility] Work Phone: Start: 04-24-2023 End: 04-24-[address] Sherice Avendano Work Phone: [facility] Work Phone: Start: 04-21-2023 End: 04-21-[address] Sherice Avendano Work Phone: [facility] Work Phone: Start: 04-01-[address] Sherice Avendano Work Phone: [facility] Start: 04-01-2023 End: 04-01-[address] Sherice Avendano Work Phone: [facility] Work Phone: Start: 04-01-2023 End: 04-01-2023 Emergency department patient visit Dr. Sherice Avendano Work Phone: [facility] Start: 04-01-2023 End: 04-01-[address] Sherice Avendano Work Phone: [facility] Work Phone: Start: 02-19-2023 End: 02-19-[address] Sherice Avendano Work Phone: [facility] Work Phone: Start: 12-26-2022 End: 12-26-[address] Sherice Avendano Work Phone: [facility] Work Phone: Start: 11-27-2022 End: 11-27-[address] Sherice Avendano Work Phone: [facility] Work Phone: Start: 11-27-2022 End: 11-27-[address] Sherice Avendano Work Phone: [facility] Work Phone: Start: 11-07-2022 End: 11-07-[address] Sherice Avendano Work Phone: [facility] Work Phone: Start: 09-28-2022 End: 09-28-[address] Sherice Avendano Work Phone: [facility] Work Phone: Start: 09-28-2022 End: 09-28-[address] Sherice Avendano Work Phone: [facility] Work Phone: Start: 08-27-2022 End: 08-27-[address] Sherice Avendano Work Phone: [facility] Work Phone: Start: 08-15-2022 End: 08-15-[address] Sherice Avendano Work Phone: [facility] Work Phone: Start: 05-01-2022 End: 05-01-[address] Sherice Avendano Work Phone: [facility] Work Phone: Start: 05-01-2022 End: 05-01-[address] Sherice Avendano Work Phone: [facility] Start: 03-01-2022 End: 03-01-[address] Sherice Avendano Work Phone: [facility] Start: 02-27-2022 End: 02-27-[address] Sherice Avendano Work Phone: [facility] Start: 02-15-[address] Sherice Avendnao Work Phone: [facility] Start: 02-15-2022 End: 02-15-2022 Encounter for general adult medical examination without abnormal findings Dr. Sherice Avendano Work Phone: [facility] Start: 02-15-2022 End: 02-15-[address] Sherice Avendano Work Phone: [facility] Start: 01-26-2022 End: 01-26-[address] Sherice Avendano Work Phone: [facility] Start: 01-22-2022 Non-patient / Non-visit Dr. Raul Avendano Work Phone: [facility] Start: 01-22-2022 End: 01-22-[address] Sherice Avendano Work Phone: [facility] Work Phone: Start: 01-22-2022 End: 01-22-[address] Sherice Avendano Work Phone: [facility]-Cardiovascula r Services Start: 01-06-2022 End: 01-06-[address] Sherice Avendano Work Phone: [facility] Start: 01-01-2022 End: 01-01-[address] Sherice Avendano Work Phone: [facility] Work Phone: Start: 01-01-2022 End: 01-01-[address] Sherice Avendano Work Phone: [facility] Start: 12-29-2021 End: 12-29-[address] Sherice Avendano Work Phone: [facility] Work Phone: Start: 12-29-2021 End: 12-29-[address] Sherice Avendano Work Phone: [facility] Start: 11-24-2021 End: 11-24-[address] Sherice Avendano Work Phone: [facility] Start: 11-01-2021 End: 11-01-[address] Sherice Avendano Work Phone: [facility] Start: 10-30-2021 End: 10-30-[address] Sherice Avendano Work Phone: [facility] Work Phone: Start: 10-30-2021 End: 10-30-[address] Sherice Avendano Work Phone: [facility] Start: 06-08-2021 End: 06-08-[address] Sherice Avendano Work Phone: [facility] Start: 05-22-2021 End: 05-22-[address] Sherice Avendano Work Phone: [facility] Start: 04-11-2021 End: 04-11-[address] Sherice Avendano Work Phone: [facility] Procedures Date Procedure Procedure Detail Performing Clinician [...] test using pharmacologic stress agent Gennaro Fuentes REGULATORY COMPLIANCE MANAGER-C Work Phone: Start: 02-24-2024 CT of chest without contrast Gennaro Fuentes REGULATORY COMPLIANCE MANAGER-C Work Phone: Start: 05-09-2023 Plain chest X-ray Dr. Eros Avendano Work Phone: Start: 04-25-2023 Plain chest X-ray Dr. Eros Avendano Work Phone: Start: 04-24-2023 Coronavirus COVID-[address] Sherice Avendano Work Phone: Plan of Treatment Date Care Activity Detail Author Start: 2033 RSV Immunization for Adults (1 - 1-dose 75+ series) RSV Immunization for Adults (1 - 1-dose 75+ series) [facility] Start: 08-10-2029 DTaP/Tdap/Td Vaccines (2 - Td or Tdap) DTaP/Tdap/Td Vaccines (2 - Td or Tdap) [facility] Start: 08-10-2029 DTaP/Tdap/Td Vaccines (3 - Td or Tdap) DTaP/Tdap/Td Vaccines (3 - Td or Tdap) [facility] Start: 12-01-2024 Patient encounter procedure Registered Clinical -Cardiovascular Services Work Phone: Start: 11-26-2024 End: 11-26-2024 Evaluation of diagnostic study results [facility] Start: 08-04-2024 [facility] Start: 08-04-2024 [facility] Start: 08-04-2024 [facility] Start: 02-12-2024 End: 02-12-2024 Patient encounter procedure 02/12/2024 1:00 PM EST Office Visit [facility] Urology - [place] [address] [place] [id number] Jhonny Lim MD [address] [place] [address] [facility] [place] Start: 12-15-2023 Pneumococcal Vaccine: 65+ Years (2 of 2 - PCV) Pneumococcal Vaccine: 65+ Years (2 of 2 - PCV) [facility] Start: 11-03-2023 COVID-19 Vaccine ( season) COVID-19 Vaccine ( season) [facility] Start: 11-03-2023 Influenza vaccination Influenza Vaccine (#1) [facility] Start: 04-01-2023 Patient referral [facility] Work Phone: Start: 04-01-2023 Testosterone measurement [facility] Start: 2018 RSV Immunization for Adults (1 - Risk 60-74 years 1-dose series) RSV Immunization for Adults (1 - Risk 60-74 years 1-dose series) [facility] Start: 2008 Zoster Vaccines (1 of 2) Zoster Vaccines (1 of 2) [facility] Start: 1976 Diabetes: Estimated Glomerular Filtration Rate for Kidney Health Diabetes: Estimated Glomerular Filtration Rate for Kidney Health [facility] Start: 1976 Diabetes: Urine Albumin-Creatinine Ratio for Kidney Health Diabetes: Urine Albumin-Creatinine Ratio for Kidney Health [facility] Start: 1976 Hepatitis C screening Hepatitis C Screening [facility] Start: 1970 Depression Screening Depression Screening [facility] Start: 1968 Diabetic foot examination Diabetes: Foot Exam [facility] Start: 1968 Glaucoma screening Diabetes: Retinopathy Screening [facility] Start: 1968 Preventive dental service Diabetes: Dental Exam [facility] Start: 12-15-1959 MMR Vaccines (1 of 1 - Standard series) MMR Vaccines (1 of 1 - Standard series) [facility] Start: 1958 Annual wellness visit Medicare Initial Physical (IPPE) [facility] Start: 1958 Hemoglobin A1c measurement Diabetes: Hemoglobin A1C [facility] Start: 1958 Lipid panel Lipid Panel [facility] Start: 1958 Screening for malignant neoplasm of colon [facility] Blood chemistry [facility] Work Phone: Blood chemistry [facility] Lipid 1996 panel - S camila or Plasma [facility] Work Phone: Patient referral [facility] Work Phone: Prostate specific antigen measurement [facility] Testosterone [Mass/volume] in Serum or Plasma [facility] Testosterone Free [Mass/volume] in Serum or Plasma [facility] US Carotid arteries [facility] Renal artery [facility] Work Phone: Immunizations Immunization Date Immunization Notes Care Provider Fa cility 06-02-2020 Covid (Pfizer) Dr. Sherice Avendano Work Phone: [facility] 05-12-2020 Covid (Pfizer) Dr. Sherice Avendano Work Phone: [facility] 12-04-2019 influenza, injectable,quadrivalent, preservative free, pediatric Dr. Sherice Avendano Work Phone: [facility] 12-04-2019 pneumococcal polysaccharide vaccine, [address] Sherice Avendano Work Phone: [facility] 12-04-2019 pneumococcal vaccine , unspecified formulation Dr. Sherice Avendano Work Phone: [facility] Work Phone: 12-04-2019 Flucelvax Quad 2019- 2020 (PF) (flu vac qs 2020(4 yr up)CD(PF)) 60 mcg ([address] Sherice Avendano Work Phone: [facility] Work Phone: 12-04-2019 influenza virus vacc ine, unspecified formulation Jhonny Lim MD Work Phone: [facility] 08-11-2019 tetanus toxoid, redu tere diphtheria toxoid, and acellular pertussis vaccine, adsorbed Dr. Sherice Avendano Work Phone: [facility] 08-11-2019 diphtheria, tetanus toxoids and acellular pertussis vaccine, unspecified formulation Dr. Sherice Avendano Work Phone: [facility] Work Phone: Payers Date Payer Category Payer Self-pay [id number] 2014 Medicare [id number] Medicare [id number] Unknown [id number] Unknown [id number] 2.16.8 [id number] Unknown [id number] 2.16.8 [id number] Unknown [id number] 2.16.8 [id number] Unknown [id number] 2.16.8 [id number] Unknown [id number] 2.16.8 [id number] Unknown [id number] 2.16.8 [id number] Unknown [id number] 2.16.8 [id number] Unknown [id number] 2.16.8 [id number] Unknown [id number] 2.16.8 [id number] Unknown [id number] 2.16.8 [id number] Unknown [id number] 2.16.8 [id number] Unknown [id number] 2.16.8 [id number] Unknown [id number] 2.16.8 [id number] Unknown [id number] 2.16.8 [id number] Unknown [id number] 2.16.8 [id number] Unknown [id number] 2.16.8 [id number] Unknown [id number] 2.16.8 [id number] Unknown [id number] 2.16.8 [id number] Unknown [id number] 2.16.8 [id number] Unknown [id number] 2.16.8 [id number] Unknown [id number] 2.16.8 [id number] Unknown [id number] 2.16.8 [id number] Unknown [id number] 2.16.8 [id number] Unknown [id number] 2.16.8 [id number] Unknown [id number] 2.16.8 [id number] Unknown [id number] 2.16.8 [id number] Unknown [id number] 2.16.8 [id number] Social History Date Type Detail Facility Start: 05-21-2021 End: 05-22-2023 Tobacco smoking status MOIS Unknown if ever smoked [facility] Start: 1960 Sex Assigned At Male W [facility] Start: 1960 Sex assigned at Not on file [facility] Start: 01-10-2024 End: 06-16-2024 Sex Male (finding) [facility] Gender identity Not on file [facility] Start: 01-09-2024 End: 08-04-2024 Tobacco smoking status NHIS Ex-smoker (finding) [facility] Medical Equipment Procedure Code Equipment Code [...] x 3/16 needle Start: 01-25-2021 End: 01-25-2021 [facility] Start: [...] x 3/16 needle Start: 01-25-2021 End: 01-25-2021 [facility] FDA Start: [...] x 3/16 needle Start: 01-25-2021 End: 01-25-2021 [facility] FDA Start: [...] x 3/16 needle Start: 01-25-2021 End: 01-25-2021 [facility] FDA Start: [...] x 3/16 needle Start: 01-25-2021 End: 01-25-2021 [facility] FDA Start: [...] x 3/16 needle Start: 01-25-2021 End: 01-25-2021 [facility] FDA Start: [...] x 3/16 needle Start: 01-25-2021 End: 01-25-2021 [facility] FDA Start: [...] x 3/16 needle Start: 01-25-2021 End: 01-25-2021 [facility] FDA Start: [...] x 3/16 needle Start: 01-25-2021 End: 01-25-2021 [facility] FDA Start: [...] x 3/16 needle Start: 01-25-2021 End: 01-25-2021 [facility] FDA Start: [...] x 3/16 needle Start: 01-25-2021 End: 01-25-2021 [facility] FDA Start: [...] x 3/16 needle Start: 01-25-2021 End: 01-25-2021 [facility] FDA Start: [...] x 3/16 needle Start: 01-25-2021 End: 01-25-2021 [facility] FDA Start: [...] x 3/16 needle Start: 01-25-2021 End: 01-25-2021 [facility] FDA Start: [...] x 3/16 needle Start: 01-25-2021 End: 01-25-2021 [facility] FDA Start: [...] x 3/16 needle Start: 01-25-2021 End: 01-25-2021 [facility] FDA Start: [...] x 3/16 needle Start: 01-25-2021 End: 01-25-2021 [facility] FDA Start: [...] x 3/16 needle Start: 01-25-2021 End: 01-25-2021 [facility] FDA Start: [...] x 3/16 needle Start: 01-25-2021 End: 01-25-2021 [facility] FDA Start: [...] x 3/16 needle Start: 01-25-2021 End: 01-25-2021 [facility] FDA Start: [...] x 3/16 needle Start: 01-25-2021 End: 01-25-2021 [facility] FDA Start: [...] Level Of Cons ciousness Awake;Alert;Appropriate;Follow s Commands [facility] Work Phone: Clinical Notes 06-11-2023 to 12-17-2024 Note Date & Type Note Facility 12-17-2024 Progress note [facility] 12-17-2024 Progress note Note Date/Time December 17, 2024 3:15pm [facility] Internal Medicine [address] [place] [address] [place] [address] OFFICE VISIT Date of Service: 12/17/24 MR#: [id number] Acct: [id number] Name: OLIVIER MENDOZA Rep #: [id number] : 1960 Provider: ANIL Dunn Age/Sex: 64/M [place] [facility] [place] Status: Signed Intake Vital Signs 11/26/24 10:04 [...] Voicebox issues Chief Complaint: 6 M FU 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 [facility] Medical History Chronic sinusitis Erectile dysfunction Claudication of both lower extremities Hilar density Abnormal chest xray Preop cardiovascular exam CKD (chronic kidney disease), stage III GERD (gastroesophageal reflux disease) Chest congestion Preoperative evaluation to rule out surgical contraindication Sinusitis Skin cyst Fatigue Left elbow pain Health care maintenance Proteinuria Nephropathy Bilateral lower extremity edema COVID-19 vaccine series completed Atherosclerotic heart disease of [place] coronary artery without angina pectoris Mixed hyperlipidemia [...] He started to do Flonase and the Delia Dillon which he states he great however [...] Cosigner Signature: Date (if applicable) CC: ~ [facility] Work Phone: 1(935) 346-615609-25-2025 Progress [facility] [address] [place] [address] OFFICE VISIT Date of Service: 11/26/24 MR#: [id number] Acct: [id number] Name: OLIVIER MENDOZA Rep #: [id number] : 1960 Provider: SHAUN Porter Age/Sex: 63/M [place] [facility] [place] Status: Signed HPI HPI History of [...] air Intake Visit Reasons: 3 M FU Forensic Ballistics Expert Required: No Accompanied by: Self Is patient in pain?: No Allergies latex Allergy (Unknown, Verified 11/26/24 09:58) Unknown Mjltmie-BNM-DnF Reductase Inhibitor (Oxmixwo-Dta-Wgv Reductase Inhibitor) Adverse Reaction (Severe,Verified 11/26/24 09:58) [...] History blood-glucose sensor (FreeStyle 05/07/24 11/26/24 His Responde Ai Daron 2 Plus Sensor device) omeprazole 40 [...] Avendano recommended but insurance will not cover. [facility] Medical History Chronic sinusitis Erectile dysfunction Claudication of both lower extremities Hilar density Abnormal chest xray Preop cardiovascular exam CKD (chronic kidney disease), stage III GERD (gastroesophageal reflux disease) Chest congestion Preoperative evaluation to rule out surgical contraindication Sinusitis Skin cyst Fatigue Left elbow pain Health care maintenance Proteinuria Nephropathy Bilateral lower extremity edema COVID-19 vaccine series completed Atherosclerotic heart disease of [place] coronary artery without angina pectoris Mixed hyperlipidemia [...] ejection fraction. Cardiac Catheterization 05/09/2020: PROCEDURE(S) PERFORMED SQ78-ABF/COR/LV CLINICAL PROFILE AND INDICATIONS Indications: Suspected CAD [...] options. He is encouraged to follow with web database developer and clinical reimbursement specialist for diabetes and kidney related component.Will consider ongoing medication adjustment as needed. (2) Atherosclerotic heart disease of [place] coronary artery without angina pectoris: Status: Chronic Qualifiers: [place] vs. transplanted heart: [place] heart Qualified Code(s): I25.10 - Atherosclerotic heart disease of [place] coronary artery without angina pectoris Comment: Diffuse coronary artery disease with small vessels noted in the entire coronary vasculature. [facility] 05/09/20 Plan: Patient has a history of [...] as necessary. 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 transplanted heart: [place] heart Mixed hyperlipidemia E78.2 LING (dyspnea on exertion) R06.09 Claudication of both lower extremities I73.9 Carotid artery disease I77.9 Coding Level of Care Code Off vis,est,level 4 Diagnoses Essential hypertension I10 Atherosclerosis of [place] coronary artery of [place] heart without angina pectoris I25.10 [place] vs. transplanted heart: [place] heart Mixed hyperlipidemia E78.2 LING (dyspnea on exertion) R06.09 Claudication of both lower extremities I73.9 Carotid artery disease I77.9 Clinical Quality Measures Falls Risk Screening/Assistive Devices Have you fallen in the past year?: No Cardiac Ejection fraction %: 65 11/26/24 1315 P REGULATORY COMPLIANCE MANAGER-C> Date _ [facility] REGULATORY COMPLIANCE MANAGER REGULATORY COMPLIANCE MANAGER-C Cosigner Signature: Date (if applicable) CC: ~ [facility]08-27-2025 Evaluation note* Diagnosis Onset Date Resolution Status Admit Date Acute nasopharyngitis acute Oct 9:28am Abdominal pain acute November 11, 2024 9:58am Chronic sinusitis chronic Novemb er 2024 9:58am Erectile dysfunction chronic Nov 9:58am Essential hypertension chronic Se ptember 2024 9:58am Type 1 diabetes mellitus chronic November 11, 2024 9:58am Carotid artery disease acute Se ptember 2024 9:29am Atherosclerotic heart diseas e of [place] coronary artery without angina pectoris chronic e r 2024 9:29am Claudication of both lower extremities chronic November 26, 2024 9:29am LING (dyspnea on exertion) chronic November 26, 2024 9:29am Essential hypertension chronic Se ptember 2024 9:29am Mixed hyperlipidemia chronic Nov 9:29am Acute rhinosinusitis acute 2024 2:30pm [facility] Work Phone: [phone]) 448-602706-19-2025 Evaluation note* Diagnosis Onset Date Resolution Status Admit Date Neck muscle strain acute August 022024 10:58am Carotid artery disease acute Ju ne 2024 8:53am Atherosclerotic heart diseas e of [place] coronary artery without angina pectoris chronic August 26, 2024 8:53am Claudication of both lower extremities chronic August 26, 2024 8:53am LING (dyspnea on exertion) chronic August 26, 2024 8:53am Essential hypertension chronic 2024 8:53am Mixed hyperlipidemia chronic August 26, 2024 8:53am [facility] Work Phone: 1([phone]) 696-953106-19-2025 Evaluation note* Diagnosis Onset Date Resolution Status Admit Date Neck muscle strain acute August 022024 10:58am Carotid artery disease acute Ju 2024 8:53am Atherosclerotic heart diseas e of [place] coronary artery without angina pectoris chronic August 26, 2024 8:53am Claudication of both lower extremities chronic August 26, 2024 8:53am LING (dyspnea on exertion) chronic August 26, 2024 8:53am Essential hypertension chronic 2024 8:53am Mixed hyperlipidemia chronic August 26, 2024 8:53am Acute nasopharyngitis acute Oct 9:28am [facility] Work Phone: 1(453) 403-889906-19-2025 Evaluation note* Diagnosis Onset Date Resolution Status Admit Date Neck muscle strain acute August 022024 10:58am Carotid artery disease acute 2024 8:53am Atherosclerotic heart diseas e of [place] coronary artery without angina pectoris chronic August [...] 2024 9:29am Atherosclerotic heart diseas e of [place] coronary artery without angina pectoris chronic Septembe r 2024 9:29am Claudication of both lower extremities chronic November 26, 2024 9:29am LING (dyspnea on exertion) chronic November 26, 2024 9:29am Essential hypertension chronic Se ptember 2024 9:29am Mixed hyperlipidemia chronic Sept emb2024 9:29am [facility] Work Phone: 1(884) 362-519306-19-2025 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 pt denies any chest pain or shortness of breath at this time 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 tried to take IBU for the neck pain however it sent his blood pressure through the roof so now he no longer uses this [facility] Medical History Claudication of both lower extremities Hilar density Abnormal chest xray Preop cardiovascular exam CKD (chronic kidney disease), stage III GERD (gastroesophageal reflux disease) Chest congestion Preoperative evaluation to rule out surgical contraindication Sinusitis Skin cyst Fatigue Left elbow pain Health care maintenance Proteinuria Nephropathy Bilateral lower extremity edema COVID-19 vaccine series completed Atherosclerotic heart disease of [place] coronary artery without angina pectoris Mixed hyperlipidemia [...] right side. He has been using o zpe-yle-bihnlgi pain patches on the area and notes [...] well nourished Orientation: alert and oriented x3 [facility] Head: normal to inspection Ears: hearing [...] the past year?: No 08/20/24 1201 er REGULATORY COMPLIANCE MANAGER-C> Date _ Riya Lutz REGULATORY COMPLIANCE MANAGER-C Cosigner Signature: Date (if applicable) CC: ~ [facility]06-19-2025 Progress note Author Riya Lutz [facility] Note Date/Time August 20, 2024 12:0 1pm [facility] [address] [place], [place] [address] OFFICE VISIT Date of Service: 08/20/24 MR#: [id number] Acct: [id number] Name: OLIVIER MENDOZA Rep #: [id number] : 1960 Provider: SHAUN Lutz Age/Sex: 63/M [place] [facility] [place] Status: Signed Intake Vital Signs 08/04/24 13:41 [...] latex Allergy (Unknown, Verified 08/20/24 11:07) Unknown Mbdpuvf-YQT-XhR Reductase Inhibitor (Ropvbds-Iye-Ggj Reductase Inhibitor) Adverse Reaction (Severe, Verified 08/20/24 [...] Rx blood-glucose sensor (FreeStyle 05/07/24 08/20/24 His Responde Ai Daron 2 Plus Sensor device) cholecalciferol (vitamin [...] 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 He has been using snfp-giz-jlinzho pain patches on the area and notes [...] 1201 <Electronically signed by Riya Shay er REGULATORY COMPLIANCE MANAGER-C> Date _ Riya De Leonr REGULATORY COMPLIANCE MANAGER-C Cosigner Signature: Date (if applicable) CC: ~ [facility] Work Phone: 1(510) 273-674806-03-2025 Discharge summary [facility] Medical Records Department [address] [place] [address] Emergency Department Summary 08/04/24 MR#: [id number] Acct: [id number] Name: OLIVIER MENDOZA Rep #:[id number] : 1960 63 From: Denzel Carlin DO [...] a stress test and an entire workup [facility] Medical History Claudication of both lower extremities Hilar density Abnormal chest xray Preop cardiovascular exam CKD (chronic kidney disease), stage III GERD (gastroesophageal reflux disease) Chest congestion Preoperative evaluation to rule out surgical contraindication Sinusitis Skin cyst Fatigue Left elbow pain Health care maintenance Proteinuria Nephropathy Bilateral lower extremity edema COVID-19 vaccine series completed Atherosclerotic heart disease of [place] coronary artery without angina pectoris Mixed hyperlipidemia [...] latex Allergy Unknown Unknown Verified 08/04/24 13:41 Wwmryzp-QME-KuM Reductase AdvReac Severe muscle pain Verified 08/04/24 13:41 Inhibitor (Kjdaajd-Mhl-Zry Reductase Inhibitor) Family History Mother Diabetes Myocardial [...] follow commands knew that he was at [facility] year is 2024 Skin: Warm, dry, tact [...] 74.3 H Lymph % (Auto) 13.9 L Prentiss % (Auto) 7.4 Eos % (Auto) 3.7 [...] Borderline cardiomegaly. No significant change. Reading Location: [id number] Discharge Plan Triage Chief Complaint: Hypertension ED [...] worsening symptoms or other concerns. Print Language: Irish Disposition Disposition: Home, Self Care What to do if you have Problems For any increased pain, shortness of breath, bleeding, nausea or vomiting, chestpain, or any unexpected problems, contact your Primary Care Provider. Call [facility] ([phone]) or report tothe closest Emergency Room. Call 911 if necessary. 08/04/24 1735 Cosigner Signature (if applicable): CC: Dr. Sherice Avendano MD ~ Signed [facility]06-03-2025 Radiology Diagnostic study note [facility] Imaging Services [address] [place] [address] Chest PA and Lateral MR#: [id number] Acct: [id number] Name: OLIVIER MENDOZA Rep #: [id number] : 1960 M 63 From: Dieudonne Mckinley MD PCP: Dr. Sherice Avendano MD Status: R ER Study:Chest PA and Lateral Date of Exam: 08/04/24 Exam# [id number] Ordering Dr: Preston Carlin DO PROCEDURE: CHEST [...] Borderline cardiomegaly. No significant change. Reading Location: [id number] CC: Dr. Sherice Avendano MD; Dr. Denzel Carlin DO ~ Supervising Floorperson: Signed [facility] Work Phone: 1(593) 801-308606-03-2025 Discharge summary Author Denzel Carlin [facility] Note Date/Time August 04, 2024 5:35p m [facility] Medical Records Department [address] [place] [address] Emergency Department Summary 08/04/24 MR#: [id number] Acct: [id number] Name: OLIVIER MENDOZA Rep #:[id number] : 1960 63 From: Denzel Carlin DO [...] a stress test and an entire workup [facility] Medical History Claudication of both lower extremities Hilar density Abnormal chest xray Preop cardiovascular exam CKD (chronic kidney disease), stage III GERD (gastroesophageal reflux disease) Chest congestion Preoperative evaluation to rule out surgical contraindication Sinusitis Skin cyst Fatigue Left elbow pain Health care maintenance Proteinuria Nephropathy Bilateral lower extremity edema COVID-19 vaccine series completed Atherosclerotic heart disease of [place] coronary artery without angina pectoris Mixed hyperlipidemia [...] Rx blood-glucose sensor (FreeStyle 05/07/24 Unknown Hist orHire Jungle Daron 2 Plus Sensor device) cholecalciferol (vitamin [...] latex Allergy Unknown Unknown Verified 08/04/24 13:41 Vamnkii-OCE-CnF Reductase AdvReac Severe muscle pain Verified 08/04/24 13:41 Inhibitor (Ulxnkez-Ffz-Jfn Reductase Inhibitor) Family History Mother Diabetes Myocardial [...] follow commands knew that he was at [facility] year is 2024 Skin: Warm, dry, tact [...] 74.3 H Lymph % (Auto) 13.9 L Prentiss % (Auto) 7.4 Eos % (Auto) 3.7 [...] Borderline cardiomegaly. No significant change. Reading Location: [id number]-NP Discharge Plan Triage Chief Complaint: Hypertension ED [...] worsening symptoms or other concerns. Print Language: Irish Disposition Disposition: Home, Self Care What to do if you have Problems For any increased pain, shortness of breath, bleeding, nausea or vomiting, chestpain, or any unexpected problems, contact your Primary Care Provider. Call [facility] ([phone]) or report to the closest Emergency Room. Call 911 if necessary. 08/04/24 1733 <Electronically signed by Denzel Carlin DO> Cosigner Signature (if applicable): CC: Dr. Sherice Avendano MD ~ Signed [facility] Work Phone: 1(484) 297-223103-06-2025 Evaluation note* Diagnosis Onset Date Resolution Status Admit Date Bilateral lower extremity edema facility rehab director leonard May 07, 2024 1:24pm BPH (benign prostatic hyperplasia) chronic May 07, 2024 1:24pm CKD (chronic kidney disease) , stage III chronic May 07, 2024 1:24pm Essential hypertension chronic [facility] 2024 1:24pm GERD (gastroesophageal reflu x disease) chronic May 07, 2024 1:24pm Mixed hyperlipidemia chronic [facility] 2024 1:24pm Atherosclerotic heart diseas e of [place] coronary artery without angina pectoris chronic May 19, 2024 10:27am Claudication of both lower extremities chronic May 19, 2024 10:27am LING (dyspnea on exertion) chronic May 19, 2024 10:27am Essential hypertension chronic [facility] 2024 10:27am Mixed hyperlipidemia chronic [facility] 2024 10:27am [facility] Work Phone: 1([phone]) 448-941103-06-2025 Evaluation note* Diagnosis Onset Date Resolution Status Admit Date Bilateral lower extremity edema facility rehab director leonard May 07, 2024 1:24pm BPH (benign prostatic hyperplasia) chronic May 07, 2024 1:24pm CKD (chronic kidney disease) , stage III chronic May 07, 2024 1:24pm Essential hypertension chronic [facility] 2024 1:24pm GERD (gastroesophageal reflu x disease) chronic May 07, 2024 1:24pm Mixed hyperlipidemia chronic [facility] 2024 1:24pm Atherosclerotic heart diseas e of [place] coronary artery without angina pectoris chronic May 19, 2024 10:27am Claudication of both lower extremities chronic May 19, 2024 10:27am LING (dyspnea on exertion) chronic May 19, 2024 10:27am Essential hypertension chronic [facility] 2024 10:27am Mixed hyperlipidemia chronic [facility] 2024 10:27am Neck muscle strain acute August 022024 10:58am [facility] Work Phone: 1(709) 457-104203-06-2025 Evaluation note* Diagnosis Onset Date Resolution Status Admit Date Bilateral lower extremity edema facility rehab director leonard May 07, 2024 1:24pm BPH (benign prostatic hyperplasia) chronic May 07, 2024 1:24pm CKD (chronic kidney disease) , stage III chronic May 07, 2024 1:24pm Essential hypertension chronic [facility] 2024 1:24pm GERD (gastroesophageal reflu x disease) chronic May 07, 2024 1:24pm Mixed hyperlipidemia chronic [facility] 2024 1:24pm Atherosclerotic heart diseas e of [place] coronary artery without angina pectoris chronic May 19, 2024 10:27am Claudication of both lower extremities chronic May 19, 2024 10:27am LING (dyspnea on exertion) chronic May 19, 2024 10:27am Essential hypertension chronic [facility] 2024 10:27am Mixed hyperlipidemia chronic [facility] 2024 10:27am Neck muscle strain acute August 022024 10:58am Atherosclerotic heart diseas e of [place] coronary artery without angina pectoris chronic August 26, 2024 8:53am Claudication of both lower extremities chronic August 26, 2024 8:53am LING (dyspnea on exertion) chronic August 26, 2024 8:53am Essential hypertension chronic 2024 8:53am Mixed hyperlipidemia chronic August 26, 2024 8:53am [facility] Work Phone: 1([phone]) 223-810001-08-2025 Evaluation note* Diagnosis Onset Date Resolution Status Admit Date Atherosclerotic heart diseas e of [place] coronary artery without angina pectoris chronic March 11 2:17pm Claudication of both lower extremities chronic March 11 2:17pm LING (dyspnea on exertion) chronic March 11, 2024 2:17pm Essential hypertension chronic Ja nuary 2024 2:17pm Mixed hyperlipidemia chronic Ariel jose 2024 2:17pm Bilateral lower extremity edema facility rehab director leonard May 07, 2024 1:24pm BPH (benign prostatic hyperplasia) chronic May 07, 2024 1:24pm CKD (chronic kidney disease) , stage III chronic May 07, 2024 1:24pm Essential hypertension chronic [facility] 2024 1:24pm GERD (gastroesophageal reflu x disease) chronic May 07, 2024 1:24pm Mixed hyperlipidemia chronic [facility] 2024 1:24pm Atherosclerotic heart diseas e of [place] coronary artery without angina pectoris chronic May 19, 2024 10:27am Claudication of both lower extremities chronic May 19, 2024 10:27am LING (dyspnea on exertion) chronic May 19, 2024 10:27am Essential hypertension chronic [facility] 2024 10:27am Mixed hyperlipidemia chronic [facility] 2024 10:27am [facility] Work Phone: 1(199) 984-161512-11-2024 Telephone encounter Note* Telephone Encounter - Maia Delgadillo - 02/12/2024 1:14 PM EST Patient called and LM to cancel his appt for today (02/12/24) and to reschedule to March if possible. Reached out to pt, call goes straight byron GUTIERREZ LMTCO to reschedule. [id number] Miscellaneous Notes* Telephone Encounter - Maia Medranojossiebarbara - 02/12/2024 1:14 PM EST Patient called and LM to cancel his appt for today (02/12/24) and to reschedule to March if possible. Reached out to pt, call goes straight byron VM. LMTCO to reschedule. documented in this [facility]11-08-2024 NoteReferral received for BPH and ED, scanned into media. Patient requested the [place] office. Appt scheduled 02/12/[address] Lim in [place].[facility]11-08-2024 Telephone encounter Note* Telephone Encounter - Maia Medranoshabana - 01/10/2024 8:50 AM EST Referral received for BPH and ED, scanned into media. Patient requested the [place] office. Appt scheduled 02/12/[address] Lim in [place]. [facility] [id number] Miscellaneous Notes* Telephone Encounter - Maiavarinder Delgadillo - 01/10/2024 8:50 AM EST Referral received for BPH and ED, scanned into media. Patient requested the [place] office. Appt scheduled 02/12/[address] Lim in [place]. documented in this [facility]04-10-2024 NoteHNO ID: [id number] Author: ADALI SULLIVAN RN Service: Nursing Author Type: Registered Nurse Type: Nursing Progress Note Filed: 06/12/2023 14:09 Note Text: Dr Moore notified of elevated BP okay to dc to home, to take home meds once arriving [facility]04-10-2024 NoteHNO ID: [id number] Author: LILIANA MCKEON AA Service: ? 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 [facility]04-[facility] NoteHNO ID: [id number] Author: GODWIN CAMACHO RN Service: ? Author [...] directed. Bring copy of Living Will/Power of Compliance Consultant. Do not smoke or chew. If you [...] the Surgery Center. UPON ARRIVAL: Access to [facility] is located [facility] [address]. [employer] parking is available for your convenience from [...] time are permitted in your preprocedure room.[facility]04-09-2024 NoteHNO ID: [id number] Author: DILLON PRUETT PA-C Service: ? Author Type: Physician Partner Type: Progress Notes Filed: 06/11/2023 08:21 Note [...] instructions for the morning of your procedure.[facility] Diagnosis Onset Date Resolution Status Atherosclerotic heart diseas e of [place] coronary artery without angina pectoris chronic Essential hypertension chron ic Mixed hyperlipidemia [facility] Work Phone: Evaluation note* Diagnosis Onset Date Resolution Status Essential hypertension chron ic Mixed hyperlipidemia chronic Nephropathy chronic Type 1 diabetes mellitus [facility] Work Phone: Evaluation note* Diagnosis Onset Date Resolution Status Essential hypertension chron ic Mixed hyperlipidemia chronic Nephropathy chronic Type 1 diabetes mellitus chr onic Atherosclerotic heart diseas e of [place] coronary artery without angina pectoris chronic Essential hypertension chron ic Mixed hyperlipidemia chronic Bradycardia acute Hyperkalemia acute Atherosclerotic heart diseas e of [place] coronary artery without angina pectoris chronic Essential hypertension chron ic Mixed hyperlipidemia chronic [facility] Work Phone: Evaluation note* Diagnosis Onset Date Resolution Status Health care maintenance acut e Left elbow pain acute Right renal artery stenosis acute Essential hypertension chron ic Hyperkalemia chronic Nephropathy chronic Type 1 diabetes mellitus chr onic Bradycardia acute Atherosclerotic heart diseas e of [place] coronary artery without angina pectoris chronic Essential hypertension chron ic Hyperkalemia chronic Mixed hyperlipidemia chronic Sinusitis noneactive [facility] Work Phone: Evaluation note* Diagnosis Onset Date Resolution Status Bilateral lower extremity edema chronic BPH (benign prostatic hyperplasia) chronic Essential hypertension chron ic Hypothyroidism chronic Type 1 diabetes mellitus chr onic Atherosclerotic heart diseas e of [place] coronary artery without angina pectoris chronic Essential hypertension chron ic Mixed hyperlipidemia chronic [facility] Work Phone: Evaluation note* Diagnosis Onset Date Resolution Status Bilateral lower extremity edema chronic BPH (benign prostatic hyperplasia) chronic Essential hypertension chron ic Hypothyroidism chronic Type 1 diabetes mellitus chr onic Atherosclerotic heart diseas e of [place] coronary artery without angina pectoris chronic Essential hypertension chron ic Mixed hyperlipidemia chronic Acute sinusitis acute [facility] Work Phone: Evaluation note* Diagnosis Onset Date Resolution Status Acute sinusitis acute Fatigue acute Preoperative evaluation to r ule out surgical contraindication acute Skin cyst acute Bilateral lower extremity edema chronic BPH (benign prostatic hyperplasia) chronic Essential hypertension chron ic Sinusitis chronic Type 1 diabetes mellitus chr onic [facility] Work Phone: Evaluation note* Diagnosis Onset Date Resolution Status Fatigue acute Preoperative evaluation to r ule out surgical contraindication acute Skin cyst acute Bilateral lower extremity edema chronic BPH (benign prostatic hyperplasia) chronic Essential hypertension chron ic Sinusitis chronic Type 1 diabetes mellitus chr onic Maxillary sinusitis, chronic chronic Sinobronchitis acute [facility] Work Phone: Evaluation note* Diagnosis Onset Date Resolution Status Fatigue acute Preoperative evaluation to r ule out surgical contraindication acute Skin cyst acute Bilateral lower extremity edema chronic BPH (benign prostatic hyperplasia) chronic Essential hypertension chron ic Sinusitis chronic Type 1 diabetes mellitus chr onic Maxillary sinusitis, chronic chronic Sinobronchitis acute Abnormal heart rhythm acute Pneumonia acute [facility] Work Phone: Evaluation note* Diagnosis Onset [...] contraindication acute Atherosclerotic heart diseas e of [place] coronary artery without angina pectoris chronic Essential hypertension chron ic Type 1 diabetes mellitus chr onic [facility] Work Phone: Hospital Discharge instructions Additional Instructions Follow-up with your cardiology team as soon as possible give their office a call for an appointment as soon as possible. Stop taking doxazosin and start taking the clonidine that was sent to your pharmacy as prescribed. Ensure you take a dose tonight. Return with worsening symptoms or other concerns.[facility] Work Phone: Progress note Author Chacorta Porter [facility] Note Date/Time November 26, 2024 10:40am [facility] [address] [place] [address]. 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 [facility] Medical History Chronic sinusitis Erectile dysfunction Claudication of both lower extremities Hilar density Abnormal chest xray Preop cardiovascular exam CKD (chronic kidney disease), stage III GERD (gastroesophageal reflux disease) Chest congestion Preoperative evaluation to rule out surgical contraindication Sinusitis Skin cyst Fatigue Left elbow pain Health care maintenance Proteinuria Nephropathy Bilateral lower extremity edema COVID-19 vaccine series completed Atherosclerotic heart disease of [place] coronary artery without angina pectoris Mixed hyperlipidemia [...] ejection fraction. Cardiac Catheterization 05/09/2020: PROCEDURE(S) PERFORMED ZX01-LNF/COR/LV CLINICAL PROFILE AND INDICATIONS Indications: Suspected CAD [...] options. He is encouraged to follow with web database developer and clinical reimbursement specialist for diabetes and kidney related component. Will consider ongoing medication adjustment as needed. (2) Atherosclerotic heart disease of [place] coronary artery without angina pectoris: Status: Chronic Qualifiers: [place] vs. transplanted heart: [place] heart Qualified Code(s): I25.10 -Atherosclerotic heart disease of [place] coronary artery without angina pectoris Comment: Diffuse coronary artery disease with small vessels noted in the entire coronary vasculature. [facility] 05/09/20 Plan: Patient has a history of [...] as necessary. 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 transplanted heart: [place] heart Mixed hyperlipidemia E78.2 LING (dyspnea on exertion) R06.09 Claudication of both lower extremities I73.9 Carotid artery disease I77.9 Coding Level of Care Code Off vis,est,level 4 Diagnoses Essential hypertension I10 Atherosclerosis of [place] coronary artery of [place] heart without angina pectoris I25.10 [place] vs. transplanted heart: [place] heart Mixed hyperlipidemia E78.2 LING (dyspnea on exertion) R06.09 Claudication of both lower extremities I73.9 Carotid artery disease I77.9 Clinical Quality Measures Falls Risk Screening/Assistive Devices Have you fallen in the past year?: No Cardiac Ejection fraction %: 65 11/26/24 1315 <Electronically signed by Chacorta DUNN> Date _ Chacorta DUNN Cosigner Signature: Date (if applicable) CC: ~ [facility] Work Phone: Reason for referral (narrative)No reason for referral information availableWPremier Health [facility] Work Phone: Summary Purpose Family History Relationship [...] Will No November 07 8:38pm Power of Compliance Consultant No November 07, 2020 8:38pm Advance Directive Response Recorded Date/ Time Advance Directives No October 24, 2020 7:34am Living Will No November 07 7:38pm Power of Compliance Consultant No November 07, 2020 7:38pm Advance Directive Response Recorded Date/ Time Advance Directives No October 24, 2020 8:34am Advance Directive Response Recorded Date/ Time Do you have a Healthcare Power of Compliance Consultant? No August 04, 2024 2:07pm Advance Directives No October 24, 2020 8:34am Chief Complaint and Reason for Visit Chief Complaint OVERDUE FOR FU EORDER FROM [facility]ENTES Reason for Visit Atherosclerotic hear t disease of [place] coronary artery without angina pectoris Essential hypertension Mixed hyperlipidemia Chief Complaint FOLLOW UP Reason for Visit Essential hypertensi on Mixed hyperlipidemia Nephropathy Type 1 diabetes mellitus Chief Complaint FOLLOW UP 6 M FU 2 DRS/ 2 ORDERS 6 wk FU INT LABS Reason for Visit Essential hypertensi on Mixed hyperlipidemia Nephropathy Type 1 diabetes mellitus Atherosclerotic heart disease of [place] coronary artery without angina pectoris Essential hypertension Mixed hyperlipidemia Bradycardia Hyperkalemia Atherosclerotic heart disease of [place] coronary artery without angina pectoris Essential hypertension Mixed hyperlipidemia Chief Complaint FOLLOW UP 6 M FU 2 DRS/ 2 ORDERS 6 wk FU INT LABS HYPERTENSION EORDER-BMP/ ADD ADDT ORDER Reason for Visit Essential hypertensi on Mixed hyperlipidemia Nephropathy Type 1 diabetes mellitus Atherosclerotic heart disease of [place] coronary artery without angina pectoris Essential hypertension Mixed hyperlipidemia Bradycardia Hyperkalemia Atherosclerotic heart disease of [place] coronary artery without angina pectoris Essential hypertension Mixed hyperlipidemia Chief Complaint HYPERTENSION EORDER-BMP/ ADD ADDT ORDER 3 M FU 6 wk FU sinus congestion 3 DRS/ 3 ORDERS Reason for Visit 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 Left elbow pain Right renal artery stenosis Essential hypertension Hyperkalemia Nephropathy Type 1 diabetes mellitus Bradycardia Atherosclerotic heart disease of [place] coronary artery without angina pectoris Essential hypertension Hyperkalemia Mixed hyperlipidemia Sinusitis Chief Complaint 3 m fu 6 M FU Reason for Visit Bilateral lower extr emity edema BPH (benign prostatic hyperplasia) Essential hypertension Hypothyroidism Type 1 diabetes mellitus Atherosclerotic heart disease of [place] coronary artery without angina pectoris Essential hypertension Mixed hyperlipidemia Chief Complaint 3 m fu 6 M FU CONCERN FOR SINUS INFECTION 2 DRS/ 2 ORDERS Reason for Visit Bilateral lower extr emity edema BPH (benign prostatic hyperplasia) Essential hypertension Hypothyroidism Type 1 diabetes mellitus Atherosclerotic heart disease of [place] coronary artery without angina pectoris Essential hypertension [...] out surgical contraindication Atherosclerotic heart disease of [place] coronary artery without angina pectoris Essential hypertension [...] Admit Date Atherosclerotic heart diseas e of [place] coronary artery without angina pectoris March 11, [...] 2024 1 :24pm GERD (gastroesophageal reflux disease) [facility] 2024 1:24pm Mixed hyperlipidemia May 07, 2024 1:2 4pm Atherosclerotic heart diseas e of [place] coronary artery without angina pectoris May 19, 2024 10:27am Claudication of both lower extremities M [facility] 2024 10:27am LING (dyspnea on exertion) [...] 2024 1 :24pm GERD (gastroesophageal reflux disease) [facility] 2024 1:24pm Mixed hyperlipidemia May 07, 2024 1:2 4pm Atherosclerotic heart diseas e of [place] coronary artery without angina pectoris May 19, 2024 10:27am Claudication of both lower extremities M [facility] 2024 10:27am LING (dyspnea on exertion) [...] 2024 1 :24pm GERD (gastroesophageal reflux disease) [facility] 2024 1:24pm Mixed hyperlipidemia May 07, 2024 1:2 4pm Atherosclerotic heart diseas e of [place] coronary artery without angina pectoris May 19, 2024 10:27am Claudication of both lower extremities [facility] 2024 10:27am LING (dyspnea on exertion) May [...] 2024 1 :24pm GERD (gastroesophageal reflux disease) [facility] 2024 1:24pm Mixed hyperlipidemia May 07, 2024 1:2 4pm Atherosclerotic heart diseas e of [place] coronary artery without angina pectoris May 19, 2024 10:27am Claudication of both lower extremities [facility] 2024 10:27am LING (dyspnea on exertion) May 19 10:27am Essential hypertension May 19, 2024 10:27am Mixed hyperlipidemia May 19, 2024 10 :27am Neck muscle strain August 20, 2024 10:5 8am Atherosclerotic heart diseas e of [place] coronary artery without angina pectoris August 26, 2024 8:53am Claudication of both lower extremities [facility] 2024 8:53am LING (dyspnea on exertion) August [...] 8 :53am Atherosclerotic heart diseas e of [place] coronary artery without angina pectoris August 26, 2024 8:53am Claudication of both lower extremities [facility] 2024 8:53am LING (dyspnea on exertion) August [...] 8 :53am Atherosclerotic heart diseas e of [place] coronary artery without angina pectoris August 26, [...] 8 :53am Atherosclerotic heart diseas e of [place] coronary artery without angina pectoris August 26, 2024 8:53am Claudication of both lower extremities [facility] 2024 8:53am LING (dyspnea on exertion) August [...] 025 9:29am Atherosclerotic heart diseas e of [place] coronary artery without angina pectoris November 26, [...] 025 9:29am Atherosclerotic heart diseas e of [place] coronary artery without angina pectoris November 26, [...] section and content) DATE CREATED AUTHOR 11/21/2020 [facility] DATE CREATED AUTHOR AUTHOR'S ORGANIZ ATION 04/16/2023 [facility] DATE CREATED AUTHOR AUTHOR'S ORGANIZ ATION 07/14/2023 [facility]ter DATE CREATED AUTHOR AUTHOR'S ORGANIZ ATION 02/16/2024 [facility] DATE CREATED AUTHOR AUTHOR'S ORGANIZ ATION 12/17/2024 [facility] Goals (unrecognized section and content) [...] Provider, Refer ring Provider Active Chacorta Porter REGULATORY COMPLIANCE MANAGER, REGULATORY COMPLIANCE MANAGER-C Attending Provider Active Team Status: Active Member Role Status Dates Dr. Sherice Avendano MD Primary Care Provider Active Dr. Nicholas Teixeira MD Attending Provider Active Gennaro Fuentes REGULATORY COMPLIANCE MANAGER, REGULATORY COMPLIANCE MANAGER-C Referring Provider Active Team Status: Inactive Member Role Status Dates Dr. Sherice Avendano MD Primary Care Provider, Refer ring Provider Active ANIL Alba Attending Provider Active Team Status: Inactive Member Role Status Dates Dr. Sherice Avendano MD Primary Care Provider Active Gennaro Fuentes REGULATORY COMPLIANCE MANAGER, REGULATORY COMPLIANCE MANAGER-C Attending Provider, Referring P rovider Active Team Status: Inactive Member Role Status Dates Dr. Sherice Avendano MD Primary Care Provider Active Gennaro Fuentes REGULATORY COMPLIANCE MANAGER, REGULATORY COMPLIANCE MANAGER-C Attending Provider, Referring P rovider Active [...] Care Provider, Refer ring Provider Active Moi Wikc PA, PA Attending Provider Active Team Status: [...] PA Attending Provider, Referring Prov ider Active Global Compensation Director Relationship Specialty Start Date End Date Jhonny Lim MD [address] [place] [address] Surgeon Urology 01/10/24 Global Compensation Director Relationship Specialty Start Date End Date Jhonny Lim MD [address] [place] [address] Surgeon Urology 01/10/24 Team Status: Inactive Member Role Status Dates Gennaro Fuentes NP, REGULATORY COMPLIANCE MANAGER-C Attending Provider Active Start: February 24, 2024 End: February 24, 2024 Gennaro Fuentes REGULATORY COMPLIANCE MANAGER, REGULATORY COMPLIANCE MANAGER-C Referring Provider Active Start: February 24, [...] 2024 End: March 10, 2024 Chacorta Porter REGULATORY COMPLIANCE MANAGER, REGULATORY COMPLIANCE MANAGER-C Other Provider Active Start : March 10, 2024 End: March 10, 2024 Gennaro Fuentes REGULATORY COMPLIANCE MANAGER, REGULATORY COMPLIANCE MANAGER-C Other Provider Active Sta rt: March [...] 2024 End: May 19, 2024 Chacorta Porter REGULATORY COMPLIANCE MANAGER, REGULATORY COMPLIANCE MANAGER-C Attending Provider Active S tart: May 19, 2024 End: May 19, 2024 Team Status: Inactive Member Role Status Dates Dr. Sherice Avendano MD Primary Care Provider Active Start: June 10, 2024 End: June 10, 2024 Chacorta Porter REGULATORY COMPLIANCE MANAGER, REGULATORY COMPLIANCE MANAGER-C Attending Provider Active S tart: June 10, 2024 End: June 10, 2024 Chacorta Porter REGULATORY COMPLIANCE MANAGER, REGULATORY COMPLIANCE MANAGER-C Referring Provider Active S tart: June [...] 20, 2024 End: August 20, 2024 Dr. Sheirce Avendano MD Referring Provider Active Start: August [...] 2024 End: August 26, 2024 Chacorta Porter REGULATORY COMPLIANCE MANAGER, REGULATORY COMPLIANCE MANAGER-C Attending Provider Active S tart: August [...] 2024 End: August 26, 2024 Chacorta Porter REGULATORY COMPLIANCE MANAGER, REGULATORY COMPLIANCE MANAGER-C Attending Provider Active S tart: August [...] End: August 26, 2024 Chacorta Porter NP REGULATORY COMPLIANCE MANAGER-C Attending physician Active Start: August 26, [...] 2024 End: November 26, 2024 Chacorta Porter REGULATORY COMPLIANCE MANAGER, REGULATORY COMPLIANCE MANAGER-C Attending physician Active Start: November 26, 2024 End: November 26, 2024 Team Status: Active Member Role/Relationship Status Dates Dr. Sherice Avendano MD Primary care physician Activ e Start: December 01, 2024 Chacorta Porter REGULATORY COMPLIANCE MANAGER, REGULATORY COMPLIANCE MANAGER-C Attending physician Active Start: December 01, 2024 Chacorta Porter REGULATORY COMPLIANCE MANAGER, REGULATORY COMPLIANCE MANAGER-C Referring Provider Active S tart: December [...] 2024 End: August 26, 2024 Chacorta Porter REGULATORY COMPLIANCE MANAGER, REGULATORY COMPLIANCE MANAGER-C Attending physician Active Start: August 26, 2024 End: August 26, 2024 Team Status: Inactive Member Role/Relationship Status Dates Dr. Sherice Avendano MD Primary care physician Activ e Start: October 28, 2024 End: October 28, 2024 Dr. Sherice Avendano MD Referring Provider Active Start: October 28, 2024 End: October 28, 2024 Yan AM PA Attending physician Active S tart: October [...] 2024 End: November 26, 2024 Chacorta Porter REGULATORY COMPLIANCE MANAGER, REGULATORY COMPLIANCE MANAGER-C Attending physician Active Start: November 26, 2024 End: November 26, 2024 Team Status: Inactive Member Role/Relationship Status Dates Dr. Sherice Avendano MD Primary care physician Activ e Start: December 01, 2024 End: December 01, 2024 Chacorta Porter REGULATORY COMPLIANCE MANAGER, REGULATORY COMPLIANCE MANAGER-C Attending physician Active Start: December 01, 2024 End: December 01, 2024 Chacorta Porter REGULATORY COMPLIANCE MANAGER, REGULATORY COMPLIANCE MANAGER-C Referring Provider Active S tart: December [...] 2024 End: November 26, 2024 Chacorta Porter REGULATORY COMPLIANCE MANAGER, REGULATORY COMPLIANCE MANAGER-C Attending physician Active Start: November 26, 2024 End: November 26, 2024 Team Status: Inactive Member Role/Relationship Status Dates Dr. Sheriec Avendano MD Primary care physician Activ e Start: December 01, 2024 End: December 01, 2024 Chacorta Porter REGULATORY COMPLIANCE MANAGER, REGULATORY COMPLIANCE MANAGER-C Attending physician Active Start: December 01, 2024 End: December 01, 2024 Chacorta Porter REGULATORY COMPLIANCE MANAGER, REGULATORY COMPLIANCE MANAGER-C Referring Provider Active S tart: December 01, 2024 End: December 01, 2024 Team Status: Active Member Role/Relationship Status Dates Dr. Sherice Avendano MD Primary care physician Activ e Start: December 01, 2024 Dr. Nicholas Teixeira MD Attending physician Active Start: December 01, 2024 Chacorta Porter REGULATORY COMPLIANCE MANAGER, REGULATORY COMPLIANCE MANAGER-C Referring Provider Active S tart: December [...] BE BASED ON THE PRIMARY CLINICAL RECORDS. [facility] [facility]. provides no warranty or guarantee of the accuracy or completeness of information in this document.
[2025-02-26 12:15] LABS: Anion Gap 10 (7-18); BUN 43 mg/dL (4-19); BUN/Creat Ratio 17.5 RATIO (10-20); Calcium,Total 8.3 mg/dL (7.6-11.0); Carbon Dioxide 23.7 mmol/L (20.0-29.0); Chloride 104 mmol/L (96-106); Glucose 102 mg/dL (70-99); Potassium 4.7 mmol/L (3.5-5.1)
== END | disposition home or self-care (01) ==
LOC: MTLAB 10:29
PROVIDERS: Student in an Organized Health Care Education/Training Program; PCP Internal Medicine; Referring Provider Internal Medicine Nephrology; Visit Provider Internal Medicine Nephrology
DX: E87.5 Hyperkalemia (principal)
CPT/HCPCS: 36415; 80048